=== PATIENT | female | born 1980 | race Caucasian/White ===

== ENCOUNTER 2017-04-04 10:04 | Emergency (ER) | payer OTHER ==
[2017-04-04] MEDS ORDERED: NS 0.9% 1000 ML* 2,000 ML IV ONE (10:22)
[2017-04-04 10:51] LABS: Hematocrit 37 % (35-47); Hemoglobin 12.3 g/dl (12.0-16.0); Mean Corpuscular HGB Conc 33 g/dl (31-36); Mean Corpuscular Hemoglobin 31 pg (27-31); Mean Corpuscular Volume 94 fL (80-97); Mean Platelet Volume 7 um3 (7.4-10.4); Red Blood Count 3.94 10^6/ul (4.0-5.4); Red Cell Distribution Width 14 % (10.5-15); White Blood Count 8.2 10^3/ul (3.5-10.8)
[2017-04-04 11:04] LABS: Albumin 3.9 g/dL (3.2-5.2); BUN/Creatinine Ratio 13.2 (8-20); Calcium 8.8 mg/dL (8.6-10.3); EGFR African American 111.4 (>60); EGFR Non-African American 86.6 (>60); Magnesium 1.8 mg/dL (1.9-2.7); Potassium 3.7 mmol/L (3.5-5.0); Total Bilirubin 0.4 mg/dL (0.2-1.0); Total Protein 6.9 g/dL (6.4-8.9)
[2017-04-04] MEDS ORDERED: Meclizine TAB* 12.5 MG PO ONE (11:34)
[2017-04-04] MEDS ORDERED: LORazepam INJ* 2 MG/ML 1 ML VIAL IV ONE (11:34)
[2017-04-04 11:41] LABS: TSH (Thyroid Stimulating Horm) 6.69 mcIU/mL (0.34-5.60)
[2017-04-04 11:53] LABS: Manual Entry Verification HAN0055; Mono Internal Control QC Line Present
[2017-04-04 13:03] LABS: Urine Bacteria Absent (Absent); Urine Bilirubin Negative (Negative); Urine Glucose Negative (Negative); Urine Nitrite Negative (Negative)
[2017-04-04 14:03] VITALS: BP 139/75
--- NOTE | 2017-04-04 17:51 | ED ---
Collins Chavez Billy, scribed for Vance Garnett MD on 04/04/17 at 1126 . Dizziness - HPI Summary HPI Summary: Patient is a 36 year-old female with a history of vertigo coming to [facility] for evaluation of dizziness since yesterday. She describes her symptoms as roomspinning and near-syncope. She also states that her "legs feel like jelly." She also states that she feels like she will fall forward when she walks. She is nauseated during these symptoms. Positive sore throat, nasal congestion, cough, and earache. Denies tinnitus or hearing loss. - History Of Current Complaint Chief Complaint: EDDizziness Stated Complaint: VIRTIGO Time Seen by Provider: 04/04/17 11:08 Hx Obtained From: Patient Onset/Duration: Still Present Timing: Constant Severity Initially: Moderate Severity Currently: Moderate Character: Room Spinning, Dizzy Associated Signs And Symptoms: Positive: Nausea, Unsteady Gait - Feels like she will fall forward, legs "feel like jelly". Negative: Tinnitus - Allergies/Home Medications Allergies/Adverse Reactions: Allergies Allergy/AdvReac Type Severity Reaction Status Date / Time Penicillins Allergy Severe CANT WALK Verified 04/04/17 10:14 WHEN SHE TAKES IT. SOB Amoxicillin [From Augmentin] Allergy Intermediate Hives Verified 04/04/17 10:14 Clavulanic Acid Allergy Intermediate Hives Verified 04/04/17 10:14 [From Augmentin] Sertraline [From Zoloft] Allergy Intermediate Hives Verified 04/04/17 10:14 Clindamycin Allergy Hives Verified 04/04/17 10:15 Fexofenadine [From Darlyn] Allergy Altered Verified 04/04/17 10:14 Mental Status Formoterol [From Dulera] Allergy Palpitation Verified 04/04/17 10:14 s Iohexol [From Omnipaque] Allergy Edema Verified 04/04/17 10:14 Latex Allergy Hives Verified 04/04/17 10:14 Lemon Oil Allergy Anaphylatic Verified 04/04/17 10:14 Shock Mometasone [From Dulera] Allergy Palpitation Verified 04/04/17 10:14 s Paroxetine [From Paxil] Allergy "It feels Verified 04/04/17 10:14 like I'm choking." Pseudoephedrine Allergy Increase BP Verified 04/04/17 10:14 [From [facility]] PMH/Surg Hx/FS Hx/Imm Hx Endocrine/Hematology History: Reports: Hx Thyroid Disease - Only in the past., Hx Anemia Denies: Hx Diabetes, Hx Unexplained Bleeding Cardiovascular History: Denies: Hx Aneurysm, Hx Angina, Hx Angioplasty, Hx Auto Implanted Cardiovert Defib, Hx Cardiac Arrest, Hx Cardiomegaly, Hx Congenital Heart Disease, Hx Congestive Heart Failure, Hx Coronary Artery Disease, Hx Deep Vein Thrombosis, Hx Embolism, Hx Hypercholesterolemia, Hx Hypotension, Hx Hypertension - In the past--she is on no medications for this., Hx Myocardial Infarction, Hx Pacemaker /ICD, Hx Peripheral Vascular Disease, Hx Rheumatic Fever, Hx Syncope, Hx Valvular Heart Disease, Other Cardiovascular Problems/Disorders Respiratory History: Reports: Hx Asthma - She does not take any medications for this., Hx Chronic Bronchitis, Hx Chronic Obstructive Pulmonary Disease (COPD) Denies: Hx Cystic Fibrosis, Hx Lung Cancer, Hx Pleural Effusion, Hx Pneumonia , Hx Pulmonary Edema, Hx Pulmonary Embolism, Hx Seasonal Allergies, Hx Sleep Apnea, Other Respiratory Problems/Disorders GI History: Reports: Hx Gastroesophageal Reflux Disease - ON DAILY PROLOSEC Denies: Hx Gall Bladder Disease, Hx Gastrointestinal Bleed, Hx Ulcer, Hx Urosepsis History: Denies: Hx Kidney Stones, Hx Renal Disease Sensory History: Reports: Hx Contacts or Glasses Denies: Hx Cataracts, Hx Eye Injury, Hx Eye Prosthesis, Hx Glaucoma, Hx Legally Blind, Hx Macular Degeneration, Hx Vision Problem, Hx Deafness, Hx Hearing Aid, Hx Hearing Problem, Other Sensory Impairments Opthamlomology History: Reports: Hx Contacts or Glasses Denies: Hx Cataracts, Hx Eye Injury, Hx Eye Prosthesis, Hx Glaucoma, Hx Legally Blind, Hx Macular Degeneration, Hx Vision Problem, Other Sensory Impairments Neurological History: Reports: Hx Developmental Delay - 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., Hx Migraine - OCCASSIONAL, USES [facility], Hx Seizures - SINCE 2004; LAST WAS 04/2014, Other Neuro Impairments/Disorders - epilepsy Denies: Hx Dementia, Hx Transient Ischemic Attacks (TIA) Psychiatric History: Reports: Hx Anxiety - ON MEDS PRN, Hx Depression, Hx Community Mental Health Tx - not currently; previously used [employer] and [facility] Mental health, Hx Bipolar Disorder Denies: Hx Post Traumatic Stress Disorder, Hx Schizophrenia, Hx Suicide Attempt, Hx Substance Abuse - Surgical History Surgery Procedure, Year, and Place: Scalp Cystectomy May 2014, Abdominal Lipoma May 2014 Hx Anesthesia Reactions: No Infectious Disease History: No Infectious Disease History: Denies: Hx Clostridium Difficile, Hx Hepatitis, Hx Human Immunodeficiency Virus (HIV), Hx of Known/Suspected MRSA, Hx Shingles, Hx Tuberculosis, Hx Known/ Suspected VRE, Hx Known/Suspected VRSA, History Other Infectious Disease, Traveled Outside the [place] in Last 30 Days - Family History Known Family History: Negative: Seizure Disorder - Social History Alcohol Use: None Substance Use Type: Reports: None Smoking Status (MU): Former Smoker Type: Cigarettes Have You Smoked in the Last Year: No Review of Systems Positive: Sore Throat, Ear Ache, Nasal Discharge Positive: Cough Positive: Nausea Neurological: Other - dizzy All Other Systems Reviewed And Are Negative: Yes Physical Exam - Summary Physical Exam Summary: The patient is well-nourished in no acute distress and in no acute pain. The skin is warm and dry and skin color reflects adequate perfusion. Good skin turgor. HEENT: The head is normocephalic and atraumatic. Positive right frontal sinus tenderness. The pupils are equal and reactive. The conjunctivae are clear and without drainage. Nares are patent and without drainage. Mouth reveals moist mucous membranes and the throat is without erythema and exudate. The external ears are intact. There is effusion visualized in the right TM. The tympanic membranes are intact. Neck is supple with full range of motion and non-tender. There are no carotid bruits. There is no neck vein distension. Respiratory: Chest is non-tender. Lungs are clear to auscultation and breath sounds are symmetrical and equal. Cardiovascular: Hear is regular rate and rhythm. There is no murmur or rub auscultated. There is no peripheral edema and pulses are symmetrical and equal. Abdomen: The abdomen is obese, soft, and non-tender. There are normal bowel sounds heard in all four quadrants and there is no organomegaly palpated. Musculoskeletal: There is no back pain noted. Extremities are non-tender with full range of motion. There is good capillary refill. There is no peripheral edema or calf tenderness elicited. Neurological: Patient is alert and oriented to person, place and time. There is horizontal nystagmus. The patient has symmetrical motor strength in all four extremities. Cranial nerves are grossly intact. Deep tendon reflexes are symmetrical and equal in all four extremities. Psychiatric: The patient has an appropriate affect and does not exhibit any anxiety or depression. Triage Information Reviewed: Yes Vital Signs On Initial Exam: Initial Vitals Temp Pulse Resp BP Pulse Ox 98.7 F 73 18 150/74 97 04/04/17 10:15 04/04/17 10:15 04/04/17 10:15 04/04/17 10:15 04/04/17 10:15 Vital Signs Reviewed: Yes Diagnostics - Vital Signs Vital Signs Temp Pulse Resp BP Pulse Ox 04/04/17 11:00 70 14 154/79 96 04/04/17 10:36 72 97 04/04/17 10:35 139/66 04/04/17 10:15 98.7 F 73 18 150/74 97 - Laboratory Lab Results: Lab Results 04/04/17 04/04/17 04/04/17 Range/Units 10:38 10:40 10:40 WBC 8.2 (3.5-10.8) 10^3/ul RBC 3.94 L (4.0-5.4) 10^6/ul Hgb 12.3 (12.0-16.0) g/dl Hct 37 (35-47) % MCV 94 (80-97) fL MCH 31 (27-31) pg MCHC 33 (31-36) g/dl RDW 14 (10.5-15) % Plt Count 309 (150-450) 10^3/ul MPV 7 L (7.4-10.4) um3 Neut % (Auto) 72.9 (38-83) % Lymph % (Auto) 17.5 L (25-47) % Warrick % (Auto) 6.1 (1-9) % Eos % (Auto) 2.7 (0-6) % Baso % (Auto) 0.8 (0-2) % Absolute Neuts (auto) 6.0 (1.5-7.7) 10^3/ul Absolute Lymphs (auto) 1.4 (1.0-4.8) 10^3/ul Absolute Monos (auto) 0.5 (0-0.8) 10^3/ul Absolute Eos (auto) 0.2 (0-0.6) 10^3/ul Absolute Basos (auto) 0.1 (0-0.2) 10^3/ul Absolute Nucleated RBC 0 10^3/ul Nucleated RBC % 0 Sodium 138 (133-145) mmol/L Potassium 3.7 (3.5-5.0) mmol/L Chloride 107 (101-111) mmol/L Carbon Dioxide 24 (22-32) mmol/L Anion Gap 7 (2-11) mmol/L BUN 10 (6-24) mg/dL Creatinine 0.76 (0.51-0.95) mg/dL Est GFR ( Amer) 111.4 (>60) Est GFR (Non-Af Amer) 86.6 (>60) BUN/Creatinine Ratio 13.2 (8-20) Glucose 118 H (70-100) mg/dL Lactic Acid (0.5-2.0) mmol/L Calcium 8.8 (8.6-10.3) mg/dL Magnesium 1.8 L (1.9-2.7) mg/dL Total Bilirubin 0.40 (0.2-1.0) mg/dL AST 12 L (13-39) U/L ALT 11 (7-52) U/L Alkaline Phosphatase 75 (34-104) U/L Troponin I 0.00 (<0.04) ng/mL Total Protein 6.9 (6.4-8.9) g/dL Albumin 3.9 (3.2-5.2) g/dL Globulin 3.0 (2-4) g/dL Albumin/Globulin Ratio 1.3 (1-3) TSH Pending Monoscreen Pending Group A Strep Rapid Negative (Negative) 04/04/17 Range/Units 10:40 WBC (3.5-10.8) 10^3/ul RBC (4.0-5.4) 10^6/ul Hgb (12.0-16.0) g/dl Hct (35-47) % MCV (80-97) fL MCH (27-31) pg MCHC (31-36) g/dl RDW (10.5-15) % Plt Count (150-450) 10^3/ul MPV (7.4-10.4) um3 Neut % (Auto) (38-83) % Lymph % (Auto) (25-47) % Warrick % (Auto) (1-9) % Eos % (Auto) (0-6) % Baso % (Auto) (0-2) % Absolute Neuts (auto) (1.5-7.7) 10^3/ul Absolute Lymphs (auto) (1.0-4.8) 10^3/ul Absolute Monos (auto) (0-0.8) 10^3/ul Absolute Eos (auto) (0-0.6) 10^3/ul Absolute Basos (auto) (0-0.2) 10^3/ul Absolute Nucleated RBC 10^3/ul Nucleated RBC % Sodium (133-145) mmol/L Potassium (3.5-5.0) mmol/L Chloride (101-111) mmol/L Carbon Dioxide (22-32) mmol/L Anion Gap (2-11) mmol/L BUN (6-24) mg/dL Creatinine (0.51-0.95) mg/dL Est GFR ( Amer) (>60) Est GFR (Non-Af Amer) (>60) BUN/Creatinine Ratio (8-20) Glucose (70-100) mg/dL Lactic Acid 1.7 (0.5-2.0) mmol/L Calcium (8.6-10.3) mg/dL Magnesium (1.9-2.7) mg/dL Total Bilirubin (0.2-1.0) mg/dL AST (13-39) U/L ALT (7-52) U/L Alkaline Phosphatase (34-104) U/L Troponin I (<0.04) ng/mL Total Protein (6.4-8.9) g/dL Albumin (3.2-5.2) g/dL Globulin (2-4) g/dL Albumin/Globulin Ratio (1-3) TSH Monoscreen Group A Strep Rapid (Negative) Result Diagrams: 04/04/17 10:40 04/04/17 10:40 Lab Statement: Any lab studies that have been ordered have been reviewed, and results considered in the medical decision making process. - EKG 1021 EKG Interpretation: NSR 75 bpm, no STEMI Re-Evaluation - Re-Evaluation First Eval Re-Evaluation Time: 13:46 Change: Improved Comment: Labs reviewed with the patient. Dizzy Course/Dx - Course Assessment/Plan: 36 year-old female coming to the ED for evaluation of vertigo. EKG shows NSR with no STEMI. Labs reviewed. TSH is 6.69. Patient has a history of hypothyroidism in the past. She will be discharged home with Rx for Meclizine and will follow up with her primary care physician Dr. Vizcarra. - Diagnoses Differential Diagnosis/HQI/PQRI: Benign Paroxysmal Positional Vertigo, Hypovolemia, Labyrinthitis, Meniere's Disease, Medication Reaction, Metabolic Abnormality Provider Diagnoses: Vertigo, Hypothyroidism Discharge - Discharge Plan Condition: Stable Disposition: HOME Prescriptions: Meclizine HCl [Meclizine 25] 25 mg PO QID #30 tab Patient Education Materials: Vertigo (ED), Hypothyroidism (ED) Referrals: Tanvir Vizcarra MD [Medical Doctor] - The documentation as recorded by the Collins villalobos Billy accurately reflects the service I personally performed and the decisions made by me, Vance Garnett MD.
== END 2017-04-04 14:16 | disposition home or self-care (01) ==
LOC: ED 10:04
DX: R42 Dizziness and giddiness (principal); E03.9 Hypothyroidism, unspecified; H92.09 Otalgia, unspecified ear; R11.0 Nausea; J02.9 Acute pharyngitis, unspecified; R05 Cough; Z87.891 Personal history of nicotine dependence
CPT/HCPCS: 36415; 80053; 81003; 81015; 83605; 83735; 84443; 84484; 85025; 86308; 87086; 87651; 93005; 96374; 99283; A9270-GY; J2060

== ENCOUNTER 2017-06-05 15:16 | Emergency (ER) | payer OTHER ==
[2017-06-05 15:27] VITALS: BP 135/67
--- NOTE | 2017-06-05 15:29 | UC ---
Minor Trauma HPI - HPI Summary HPI Summary: 36 year old female presents with complains right elbow pain and left hip pain post fall. - History of Current Complaint Chief Complaint: UCBackPain Stated Complaint: S/P FALL-LFT HIP,RT ARM/ELBOW PAIN Time Seen by Provider: 06/05/17 15:22 Hx Last Menstrual Period: last week - Allergies/Home Medications Allergies/Adverse Reactions: Allergies Allergy/AdvReac Type Severity Reaction Status Date / Time Penicillins Allergy Severe CANT WALK Verified 06/05/17 15:27 WHEN SHE TAKES IT. SOB Amoxicillin [From Augmentin] Allergy Intermediate Hives Verified 06/05/17 15:27 Clavulanic Acid Allergy Intermediate Hives Verified 06/05/17 15:27 [From Augmentin] Sertraline [From Zoloft] Allergy Intermediate Hives Verified 06/05/17 15:27 Clindamycin Allergy Hives Verified 06/05/17 15:27 Fexofenadine [From Darlyn] Allergy Altered Verified 06/05/17 15:27 Mental Status Formoterol [From Dulera] Allergy Palpitation Verified 06/05/17 15:27 s Iohexol [From Omnipaque] Allergy Edema Verified 06/05/17 15:27 Latex Allergy Hives Verified 06/05/17 15:27 Lemon Oil Allergy Anaphylatic Verified 06/05/17 15:27 Shock Mometasone [From Dulera] Allergy Palpitation Verified 06/05/17 15:27 s Paroxetine [From Paxil] Allergy "It feels Verified 06/05/17 15:27 like I'm choking." Pseudoephedrine Allergy Increase BP Verified 06/05/17 15:27 [From Sudafed] Home Medications: Home Medications Budesonide NEB* [Pulmicort Neb*] 0.25 mg INH BID 06/05/17 [History Confirmed ] Calcium Carbonate-Vitamin D [Calcium 600 + D 600-400 mg-Unit] 1 tab PO DAILY [History Confirmed 06/05/17] PMH/Surg Hx/FS Hx/Imm Hx Other History Of: Negative For: HIV, Hepatitis B, Hepatitis C - Surgical History Surgical History: Yes Surgery Procedure, Year, and Place: Scalp Cystectomy May 2014, Abdominal Lipoma May 2014 - Family History Known Family History: Positive: None, Unknown Negative: Seizure Disorder - Social History Alcohol Use: None Substance Use Type: None Smoking Status (MU): Former Smoker Type: Cigarettes Have You Smoked in the Last Year: No - Immunization History Most Recent Influenza Vaccination: Fall 2014 Most Recent Tetanus Shot: 2014 Most Recent Pneumonia Vaccination: unknown Review of Systems Constitutional: Negative Skin: Negative Eyes: Negative ENT: Negative Respiratory: Negative Cardiovascular: Negative Gastrointestinal: Negative Genitourinary: Negative Motor: Negative Neurovascular: Negative Musculoskeletal: Other: - right elbow swelling left hip pain Neurological: Negative Psychological: Negative All Other Systems Reviewed And Are Negative: Yes Physical Exam Triage Information Reviewed: Yes Vital Signs: Initial Vital Signs Temp 36.7 C 06/05/17 15:21 Pulse 95 06/05/17 15:21 Resp 16 06/05/17 15:21 BP 135/67 06/05/17 15:21 Pulse Ox 99 06/05/17 15:21 Eye Exam: Normal ENT Exam: Normal Dental Exam: Normal Neck exam: Normal Neck: Positive: 1 Respiratory Exam: Normal Cardiovascular Exam: Normal Abdominal Exam: Normal Musculoskeletal: Positive: Other: - right elbow pain left hip pain Neurological Exam: Normal Psychological Exam: Normal Skin Exam: Normal Minor Trauma Course/Dx - Differential Dx/Diagnosis Provider Diagnoses: right elbow contusion. left hip pain Discharge - Discharge Plan Condition: Stable Disposition: HOME Prescriptions: Meloxicam [Mobic] 7.5 mg PO BID #30 tab Methocarbamol TAB* [Robaxin 500 MG TAB*] 500 mg PO TID PRN #30 tab PRN Reason: Spasms Patient Education Materials: Elbow Sprain (ED), Hip Pain (ED) Referrals: Raghu Goss MD [Medical Doctor] - Baldev Bonner MD [Medical Doctor] - If Needed
--- NOTE | 2017-06-05 16:39 | RAD ---
HISTORY: Fall, left hip pain COMPARISONS: None VIEWS: 4, Frontal view of the pelvis with frontal and frog-leg views of the left hip FINDINGS: BONE DENSITY: Normal. BONES: There is no displaced fracture. JOINTS: There is no arthropathy. ALIGNMENT: There is no dislocation. SOFT TISSUES: Unremarkable. OTHER FINDINGS: Contraceptive inserts are noted IMPRESSION: NO ACUTE OSSEOUS INJURY. IF SYMPTOMS PERSIST, RECOMMEND REPEAT IMAGING.
--- NOTE | 2017-06-05 16:40 | RAD ---
INDICATION: RIGHT elbow pain post fall. COMPARISON: No relevant prior exams available on the [facility] PACS for comparison. TECHNIQUE: AP, lateral, and oblique views RIGHT elbow. REPORT: Negative for fat pad displacement to indicate effusion. No cortical disruption or suspicious trabecular irregularity to suggest fracture. Preserved joint spaces. Mild dorsal soft tissue swelling. IMPRESSION: Mild dorsal soft tissue swelling without additional finding.
== END 2017-06-05 17:01 | disposition home or self-care (01) ==
LOC: UCCORT 15:16
DX: S50.01XA Contusion of right elbow, initial encounter (principal); M25.552 Pain in left hip; W19.XXXA Unspecified fall, initial encounter; Y93.9 Activity, unspecified; Y92.9 Unspecified place or not applicable; Z32.02 Encounter for pregnancy test, result negative; Z88.0 Allergy status to penicillin; Z88.1 Allergy status to other antibiotic agents; Z91.041 Radiographic dye allergy status; Z87.891 Personal history of nicotine dependence
CPT/HCPCS: 84702; 99212; G0463

== ENCOUNTER 2017-06-11 17:25 | Emergency (ER) | payer OTHER ==
[2017-06-11 17:43] VITALS: BP 147/83
--- NOTE | 2017-06-11 17:54 | UC ---
Dental HPI - HPI Summary HPI Summary: Pt presents with c/o of broken tooth that happened 2 days ago. Pt reports that she has an appointment with her dentist on 06/20. c/o pain and swelling in left upper gums and jaw - History of Current Complaint Chief Complaint: UCDentalProblem Stated Complaint: DENTAL Time Seen by Provider: 06/11/17 17:35 Hx Obtained From: Patient Hx Last Menstrual Period: 05/22/17 ?: No Onset/Duration: Sudden Onset, Lasting Days - 2, Worse Since - onset Severity: Mild Aggravating: Heat, Cold, Chewing Related History: Other - generalized poor dentition - Allergies/Home Medications Allergies/Adverse Reactions: Allergies Allergy/AdvReac Type Severity Reaction Status Date / Time Penicillins Allergy Severe CANT WALK Verified 06/05/17 15:27 WHEN SHE TAKES IT. SOB Amoxicillin [From Augmentin] Allergy Intermediate Hives Verified 06/05/17 15:27 Clavulanic Acid Allergy Intermediate Hives Verified 06/05/17 15:27 [From Augmentin] Sertraline [From Zoloft] Allergy Intermediate Hives Verified 06/05/17 15:27 Clindamycin Allergy Hives Verified 06/05/17 15:27 Fexofenadine [From Darlyn] Allergy Altered Verified 06/05/17 15:27 Mental Status Formoterol [From Dulera] Allergy Palpitation Verified 06/05/17 15:27 s Iohexol [From Omnipaque] Allergy Edema Verified 06/05/17 15:27 Latex Allergy Hives Verified 06/05/17 15:27 Lemon Oil Allergy Anaphylatic Verified 06/05/17 15:27 Shock Mometasone [From Dulera] Allergy Palpitation Verified 06/05/17 15:27 s Paroxetine [From Paxil] Allergy "It feels Verified 06/05/17 15:27 like I'm choking." Pseudoephedrine Allergy Increase BP Verified 06/05/17 15:27 [From Sudafed] Home Medications: Home Medications Budesonide/Formote 160/4.5(NF) [Symbicort 160/4.5 (NF)] 2 puff INH DAILY [History Confirmed 06/11/17] Levothyroxine TAB* [Synthroid 25 MCG TAB*] 0 mcg PO DAILY 06/11/17 [History Confirmed 06/11/17] Migraine Med 4 tab PO BEDTIME 06/11/17 [History Confirmed 06/11/17] Pedistick Inhaler 1 puff INH BID PRN 06/11/17 [History Confirmed 06/11/17] PMH/Surg Hx/FS Hx/Imm Hx Previously Healthy: No - obesity Endocrine History: Diabetes - "prediabetic" Cardiovascular History: Hypertension - untreated per pt. Other History Of: Negative For: HIV, Hepatitis B, Hepatitis C - Surgical History Surgical History: Yes Surgery Procedure, Year, and Place: Scalp Cystectomy May 2014, Abdominal Lipoma May 2014 - Family History Known Family History: Negative: Seizure Disorder - Social History Occupation: Unemployed Lives: With Family Alcohol Use: None Substance Use Type: None Smoking Status (MU): Former Smoker Type: Cigarettes Have You Smoked in the Last Year: No - Immunization History Most Recent Influenza Vaccination: Fall 2014 Most Recent Tetanus Shot: 2014 Most Recent Pneumonia Vaccination: unknown Review of Systems Constitutional: Negative Skin: Negative Eyes: Negative ENT: Other - left upper jaw swellling and pain Respiratory: Negative Cardiovascular: Negative Gastrointestinal: Negative Genitourinary: Negative Motor: Negative Neurovascular: Negative Musculoskeletal: Negative Neurological: Negative Psychological: Negative All Other Systems Reviewed And Are Negative: Yes Physical Exam Triage Information Reviewed: Yes Appearance: Well-Appearing Vital Signs: Initial Vital Signs Temp 98.4 F 06/11/17 17:33 Pulse 90 06/11/17 17:33 Resp 18 06/11/17 17:33 BP 147/83 06/11/17 17:33 Vital Signs Reviewed: Yes Eye Exam: Normal ENT Exam: Normal Dental Exam: Other Dental: Positive: Gross Decay/Caries @ - generalized, Dental Fracture @ - generalized multiple teeth, Other: - multiple missing teeth, Neck exam: Normal Respiratory Exam: Normal Cardiovascular Exam: Normal Musculoskeletal Exam: Normal Neurological Exam: Normal Psychological Exam: Normal Skin Exam: Normal Dental Complaint Course/Dx - Differential Dx/Diagnosis Differential Diagnosis/Dx: Dental Abscess, Dental Caries, Fractured Tooth, Gingivitis Provider Diagnoses: fractured tooth. poor dentition Discharge - Discharge Plan Condition: Stable Disposition: HOME Prescriptions: Ibuprofen TAB* [Motrin TAB* 600 MG] 600 mg PO Q6H PRN #21 tab PRN Reason: Pain Metronidazole [Flagyl 500 MG TAB] 500 mg PO Q12H #20 tab Patient Education Materials: Dental Abscess (ED), Acute Dental Trauma (ED) Referrals: Tanvir Vizcarra MD [Primary Care Provider] - Additional Instructions: Please follow up with your dental care provider as soon as possible.
== END 2017-06-11 18:38 | disposition home or self-care (01) ==
LOC: UCCORT 17:25
DX: S02.5XXA Fracture of tooth (traumatic), initial encounter for closed fracture (principal); K08.9 Disorder of teeth and supporting structures, unspecified; X58.XXXA Exposure to other specified factors, initial encounter; Y92.9 Unspecified place or not applicable; Z88.0 Allergy status to penicillin
CPT/HCPCS: 99212; G0463

== ENCOUNTER 2017-07-23 19:12 | Emergency (ER) | payer OTHER ==
[2017-07-23 19:28] VITALS: BP 139/69
--- NOTE | 2017-07-23 19:44 | UC ---
Dental HPI - HPI Summary HPI Summary: Patient presents s/p two dental extraction today performed by [facility], and she has pain at the extraction site. She states she was told to go to the ER for pain medication they could not help her. She states the pain from the extraction site is 10/10 and constant since the novacaine wore off. She reports the bleeding is controlled. She states there is still some numbness of the left lower jaw. She has taken advil with no relief. - History of Current Complaint Chief Complaint: UCDentalProblem Stated Complaint: DENTAL COMPLAINT Time Seen by Provider: 07/23/17 19:25 Hx Obtained From: Patient Hx Last Menstrual Period: 06/22/17 ?: No Onset/Duration: Sudden Onset Severity: Severe Aggravating: Nothing Alleviating: Nothing - Allergies/Home Medications Allergies/Adverse Reactions: Allergies Allergy/AdvReac Type Severity Reaction Status Date / Time Penicillins Allergy Severe CANT WALK Verified 07/23/17 19:32 WHEN SHE TAKES IT. SOB Amoxicillin [From Augmentin] Allergy Intermediate Hives Verified 07/23/17 19:32 Clavulanic Acid Allergy Intermediate Hives Verified 07/23/17 19:32 [From Augmentin] Sertraline [From Zoloft] Allergy Intermediate Hives Verified 07/23/17 19:32 Clindamycin Allergy Hives Verified 07/23/17 19:32 Fexofenadine [From Darlyn] Allergy Altered Verified 07/23/17 19:32 Mental Status Formoterol [From Dulera] Allergy Palpitation Verified 07/23/17 19:32 s Iohexol [From Omnipaque] Allergy Edema Verified 07/23/17 19:32 Latex Allergy Hives Verified 07/23/17 19:32 Lemon Oil Allergy Anaphylatic Verified 07/23/17 19:32 Shock Metronidazole Allergy NAUSEA, Verified 07/23/17 19:33 VOMITING Mometasone [From Dulera] Allergy Palpitation Verified 06/05/17 15:27 s Paroxetine [From Paxil] Allergy "It feels Verified 06/05/17 15:27 like I'm choking." Pseudoephedrine Allergy Increase BP Verified 06/05/17 15:27 [From Sudafed] Zonisamide Allergy Hives Verified 07/23/17 19:33 PSEUDOEPHEDRINE Allergy Unknown Uncoded 07/23/17 19:32 Reaction Details PMH/Surg Hx/FS Hx/Imm Hx Previously Healthy: Yes Psychological History: Depression Other History Of: Negative For: HIV, Hepatitis B, Hepatitis C - Surgical History Surgical History: Yes Surgery Procedure, Year, and Place: Scalp Cystectomy May 2014, Abdominal Lipoma May 2014 - Family History Known Family History: Positive: None, Unknown Negative: Seizure Disorder - Social History Lives: Alone Alcohol Use: None Substance Use Type: None Smoking Status (MU): Former Smoker Type: Cigarettes Have You Smoked in the Last Year: No - Immunization History Most Recent Influenza Vaccination: Fall 2014 Most Recent Tetanus Shot: 2014 Most Recent Pneumonia Vaccination: unknown Review of Systems ENT: Other - dental extraction pain All Other Systems Reviewed And Are Negative: Yes Physical Exam Triage Information Reviewed: Yes Appearance: Well-Appearing Vital Signs: Initial Vital Signs Pulse 94 07/23/17 19:20 Resp 15 07/23/17 19:20 BP 139/69 07/23/17 19:20 Pulse Ox 99 07/23/17 19:20 Vital Signs Reviewed: Yes Eye Exam: Normal ENT Exam: Normal ENT: Positive: Other: - extraction sited of the left lower of the canine and 1st molar are clotted, and n bleeding noted. Minor soft tissue swelling noted on outter madible area. SLight tenderness on palpation of the mandible. Respiratory Exam: Normal Skin Exam: Normal Dental Complaint Course/Dx - Course Course Of Treatment: Patient presents s/p dental extraction today, site are clotted and bleeding controlled. Patient was placed on docycycline and given a few tablets of tylenol and codeine for pain controll. She is goint to follow up with [facility] for complete extractions of all her teeth. She was discharged home in stable condition. - Differential Dx/Diagnosis Differential Diagnosis/Dx: Other - dental extraction dental pain Provider Diagnoses: dental extractions. dental pain Discharge - Discharge Plan Condition: Stable Disposition: HOME Prescriptions: Acetaminop/Codeine 30 MG TAB* [Tylenol/Codeine 30 MG TAB*] 1 tab PO Q6H PRN #10 tab MDD 4 PRN Reason: dental pain DOXYcycline CAP(*) [DOXYcycline 100MG CAP(*)] 100 mg PO BID #20 cap Patient Education Materials: Tooth Extraction (ED) Referrals: Tanvir Vizcarra MD [Primary Care Provider] -
== END 2017-07-23 19:47 | disposition home or self-care (01) ==
LOC: UCEAST 19:12
DX: K08.409 Partial loss of teeth, unspecified cause, unspecified class (principal); K08.89 Other specified disorders of teeth and supporting structures; F32.9 Major depressive disorder, single episode, unspecified; Z88.0 Allergy status to penicillin; Z88.8 Allergy status to other drugs, medicaments and biological substances; Z88.1 Allergy status to other antibiotic agents; Z91.041 Radiographic dye allergy status; Z91.040 Latex allergy status; Z87.891 Personal history of nicotine dependence
CPT/HCPCS: 99212; G0463

== ENCOUNTER 2018-04-10 01:31 | Emergency (ER) | payer OTHER ==
--- OUTSIDE RECORDS SUMMARY | 2018-04-10 01:44 | XMS REPORT ---
:1980 External Reference #:[id number] Author Organization [facility] Address [address] [address] Phone [phone] Care Team Providers Name Role Phone Tanvir Vizcarra MD Primary Care Physician Unavailable Payers Type Date Identification Numbers Payment Provider Subscriber Commercial Effective: Policy Number: [id number] [place] Dean Peng 2012 Medicaid PayID: [id number] [address] [address] [place] [address] Advance Directives Type Date Description Status Comment Other Directive 12/28/2014 [employer] Current and Verified Problems Date Description Provider Status Onset: 08/20/2012 Epilepsy Yudi Carlin M.D. Active Onset: 08/20/2012 Asthma without status asthmaticus Yudi Carlin M.D. Active Onset: 08/20/2012 Essential hypertension Yudi Carlin M.D. Active Onset: 08/31/2012 Conduction disorder of the heart Tanvir Vizcarra M.D. Active Onset: 08/31/2012 Migraine variants, not intractable Tanvir Vizcarra M.D. Active Onset: 01/16/2015 Anxiety disorder Jeremiah Zendejas NP Active Onset: 06/13/2015 Depressive disorder Jeremiah Zendejas NP Active Note: Bipolar Onset: 04/08/2017 Peripheral vertigo Tanvir Vizcarra M.D. Active Onset: 04/08/2017 Hypothyroidism Tanvir Vizcarra M.D. Active Onset: 05/15/2017 Lipoma (clinical) Tanvir Vizcarra M.D. Active Onset: 05/15/2017 Obstructive sleep apnea syndrome Tanivr Vizcarra M.D. Active Onset: 05/15/2017 Recurrent major depressive episodes Tanvir Vizcarra M.D. Active Onset: 10/16/2017 Gastroesophageal reflux disease Tanvir Vizcarra M.D. Active Onset: 10/16/2017 Morbid obesity Tanvir Vizcarra M.D. Active Onset: 07/21/2017 Difficulty breathing Diana Escalona MD Inactive Inactive: 01/21/2018 Onset: 07/21/2017 Bronchitis Diana Escalona MD Inactive Inactive: 01/21/2018 Note: chronic Onset: 09/28/2012 Acute bronchitis Tanvir Vizcarra M.D. Resolved Resolved: 02/27/2015 Onset: 10/27/2012 Dizziness and giddiness Tanvir Vizcarra M.D. Resolved Resolved: 02/27/2015 Family History Date Family Member(s) Problem(s) Comments First Sister 21 First Sister other sister had thyroid removed. Social History Type Date Description Comments Marital Status Lives With Boyfriend Occupation Disabled ETOH Use 01/21/2018 Denies alcohol use Smoking 2004 Patient is a former smoker "not enough to say so" Recreational Drug Use Denies Drug Use General Hx Text 2 children, live w/ father Allergies, Adverse Reactions, Alerts Date Description Reaction Status Severity Comments 07/20/2012 Latex Contact active dermatitis 07/20/2012 Sudafed High BP active 02/25/2013 Lemon Anaphylaxis active 09/29/2014 Augmentin diarrhea active 03/06/2015 Paroxetine active pt unaware of reaction 03/06/2015 Pseudoephedrine active unaware of reaction 03/06/2015 Zoloft active unaware of reaction 03/17/2015 Darlyn confusion active Moderate to Severe 05/09/2015 Dye, Contrast arm swelled and active Moderate "out of it" 06/13/2015 Dye, contrast swelling in active Severe hands, cant breath 05/03/2016 Penicillin lessons ability active Moderate to walk per pt 06/18/2017 Metronidazole nausea, vomiting, active Moderate tachycardia 06/18/2017 Zonisamide Urticaria active 01/02/2018 Peanut-containing Drug active Products Medications Medication Date Status Form Strength Qnty SIG Indications Ordering Provider Meclizine HCL 03/10/ Active Tablets 25mg 90tabs 1/2-1 by H81.399 Tanvir 2018 mouth Pachikara, three M.D. times a day as needed Calcium 02/18/ Active Tablets 600-400mg- 180tab Take One J00 [place] Carbonate-Esther 2018 Unit s Tablet By Zackery, min D Mouth M.DBryant Twice A Day With Food Arnuity 01/21/ Active Aerosol 100mcg/Act 30unit 1 puff Baldev Pereira 2018 s inhaled Ebony Bonner, every day M.D.,FACP Doxepin HCL 09/12/ Active Capsules 10mg 120cap 4 qhs G43.909 [place] Blanco 2016 jer Yadav M.D. Meclizine HCL 04/08/ Active Tablets 12.5mg 60tabs 1-2 tab H81.393 Tanvir 2016 two times Zackery, a day M.D. Ondansetron 03/31/ Active Tablets 4mg 10tabs one by Baldev LUNDBERG 2017 mouth Ebony Bonner, every 8 M.D.,FACP hours as needed for nausea Citalopram 03/17/ Active Tablets 10mg 30tabs Take One [place] Hydrobromide 2016 Tablet By Zackery, Mouth M.D. Every Day Along With 20 MG Tablet To Equal Total Daily Dose Of 30 MG Robitussin 12 10/10/ Active Suer 30mg/5ML 118ml 1-2 J00 [facility] Cough 2016 teaspoon Zackery, Relief at night M.D. as needed Ibuprofen 06/24/ Active Tablets 800mg 90tabs take 1 Tanvir 2015 tablet by Zackery, mouth M.D. three times daily as needed Ventolin HFA 03/13/ Active Aerosol 108(90Base 1units 2 puffs by Malu Ryan 2015 ) mcg/Act mouth four Ebony Bonner, times a M.D.,FACP day as needed Freestyle 09/28/ Active Misc 100uni test bs [place] Gabriel 2014 ts once daily Zackery, and as M.D. needed Freestyle 09/28/ Active Kit 250.02 Jeremiah System 2014 Ecuadorean, HAND EDGER Freestyle Test 09/28/ Active Strips 100uni test Jeremiah 2015 ts strips use aAshish HAND EDGER daily as directed Omeprazole 09/15/ Active Capsules 20mg 30caps Take One K21.[address] Capsule By aZckery, Mouth M.D. Every Day Benzonatate 08/22/ Active Capsules 100mg 30caps 1 tab by R05 Baldev 2014 mouth Ebony Bonner, three M.D.,FACP times a day as needed J00 KP Cetirizine HCL 03/31/2015 Active Tablets 10mg 30tabs 1 by mouth Baldev every day Ebony Bonner M.D.,FACP Citalopram 08/30/2014 Active Tablets 20mg 30tabs Take One F33. Tanvir Hydrobromide Tablet By 9 Pachikara, Mouth Every M.D. Day Along With 10 MG Tablet To Equal Total Daily Dose Of 30 MG Ferrous Gluconate 08/12/2014 Active Tablets 324(3 90tabs Take One Tanvir 8Fe) Tablet By Zackery, mg Mouth Every M.D. Day Albuterol Sulfate 11/02/2012 Active Nebulizer (2.5m 100unit inhale the Baldev g/3ML s contents of Ebony Bonner, ) one vial M.D.,FACP 0.083 via % nebulizer every 4 to 6 hours as needed Lamotrigine 07/21/2012 Active Tablets 100mg 210tabs 3 by mouth Momo every Taya, morning and MD Quintanilla every night at bedtime Flonase Allergy Active Suspension 50mcg 9.900ml 2 Tanvir Relief /Act intranasal Dominikika, twice a day M.D. Levothyroxine Active Tablets 75mcg 1 by mouth E03. Unknown Sodium every day 9 Prednisone 01/21/2018 - Hx Tablets 10mg 20tabs 4 tabs Baldev 01/29/2018 every day Ebony Bonner, for 2 days, M.DBryant,FACP then reduce by 1 tab every 2 days until finished Calcium 10/20/2017 - Hx Tablets 600-4 180tabs take one Tanvir Carbonate-Vitamin 01/01/2018 00mg- tablet by Calvin Vizcarra Unit mouth twice M.D. a day with food Doxycycline 07/23/2017 - Hx Tablets 100mg 20tabs 1 by mouth Other Hyclate 08/02/2017 twice a day Ordering x 10 days Provider Acetaminophen-Cod 07/23/2017 - Hx Tablets 300-3 10tabs 1 tab by Unknown eine #3 09/11/2017 0mg mouth q 6 hrs day as needed pain Zonisamide 07/18/2017 - Hx Capsules 100mg 60caps 2 tabs po G43. Clinton S. 01/01/2018 qhs 909 Pablo Yadva Doxycycline 06/18/2017 - Hx Capsules 100mg 14caps 1 cab twice R30. Tanvir Hyclate 07/17/2017 a day 0 Pablo Vizcarra Nitrofurantoin 06/10/2017 - Hx Capsules 100mg 14caps take one Other Macrocrystal 06/17/2017 capsule Ordering twice daily Provider for 7 days. Zonisamide 04/18/2017 - Hx Capsules 25mg 120caps 1 po qhs G43. [place] Blanco 06/18/2017 for 1 wk 909 Leif, then 2 qhs M.DBryant for 1 wk then 3 qhs for 1 wk then 4 qhs Azithromycin 04/08/2017 - Hx Tablets 250mg 6tabs 2 tab today J06. [place] 04/10/2017 and then 9 Pachikara, 1tab daily M.D. Levothyroxine 04/08/2017 - Hx Tablets 25mcg 45tabs take one E03. Tanvir Sodium 01/21/2018 tablet by 9 Pachikara, mouth every M.D. morning Lidocaine Viscous 04/02/2017 - Hx Solution 2% 200ml swish and K08. Marito E. 04/10/2017 spit 15cc 89 Dyana, up to three M.D. times a day as needed Ketorolac 03/31/2017 - Hx Tablets 10mg 3tabs take 1 by Bekah Tromethamine 04/10/2017 mouth every Cowdery, 8 hours as M.D. needed for migraine. take with food. Clindamycin HCL 03/25/2017 - Hx Capsules 300mg 40caps 1 tabs by K05. Tanvir 04/10/2017 mouth every 00 Pachikara, 6h M.D. Vicodin 03/25/2017 - Hx Tablets 5-300 20tabs 1 tab every K05. [place] 05/21/2017 mg 12 hours 00 Pachikara, M.D. Calcium 600+D 10/31/2016 - Hx Tablets 600-4 180tabs 1 tab by J00 Tanvir 02/18/2018 00mg- mouth twice Pachikara, Unit a day take M.D. w/ meal Topiramate 10/17/2016 - Hx Tablets 100mg 75tabs 1 po qam G43. [place] Blanco 03/18/2017 and 1 11/11 909 luis manuel Yadav M.D. Naproxen 05/03/2016 - Hx Tablets 250mg 60tabs 1 tablet by M79. Jeremiah 05/13/2016 mouth twice 632 Ecuadorean, HAND EDGER a day as needed pain, with foods Prednisone 03/26/2016 - Hx Tablets 20mg 5tabs 1 tablets J02. Jeremiah 05/03/2016 by mouth 9 Ecuadorean, HAND EDGER daily x's 5 days in the morning Meclizine HCL 03/26/2016 - Hx Tablets 25mg 45tabs 1 tablet H81. Jeremiah 04/09/2016 tid every 319 [place]cu[place]orean, HAND EDGER 6-8 hours as needed Escitalopram 03/11/2016 - Hx Tablets 10mg 30tabs 1/2 tab po F33. Ashvin- Connor Oxalate 03/14/2016 qd for 1 wk 9 D. Lisco, then 1 by Pablo,FACP mouth every day Venlafaxine HCL 02/22/2016 - Hx Tablets 37.5m 22tabs 75 mg for 1 F33. Jeremiah 03/13/2016 g week, then 9 [place]orean, HAND EDGER 37.5 mg for 1 week, then stop. Zofran Odt 01/01/2016 - Hx Tablets 4mg 12tabs 1 odt by R11. Jeremiah 01/02/2016 Dispers mouth every 2 Ecuadorean, HAND EDGER 6 hours as needed nausea no more than 3 daily Drisdol 12/25/2015 - Hx Capsules 59370 8caps 1 tab by Jeremiah 02/22/2016 Unit mouth once Ecuadorean, HAND EDGER a week x's 8 weeks Nystop 12/20/2015 - Hx Powder 45557 1units apply B37. Jeremiah 02/22/2016 0Unit topically 2 [place]cu[place]orean, HAND EDGER /GM to rash twice a day until rash resolved Cefdinir 10/30/2015 - Hx Capsules 300mg 20caps 1 capsule J01. Jeremiah 11/09/2015 twice a day 90 [place]cu[place]orean, HAND EDGER x's 10 days Ipratropium 10/30/2015 - Hx Solution 0.03% 1units instill 2 J01. Jeremiah [place] 11/13/2015 sprays in 90 [place]cu[place]orean, HAND EDGER each nostril three times a day as needed nasal congestion Penicillin V 10/12/2015 - Hx Tablets 500mg 20tabs 1 tablet by Jeremiah Potassium 10/22/2015 mouth bid Ecu[place]orean, HAND EDGER x10 days Clindamycin HCL 10/11/2015 - Hx Capsules 300mg 30caps 1 capsule J02. Jeremiah 10/12/2015 by mouth 9 [place]cu[place]orean, HAND EDGER three times a day x's 10 days Cepacol Sore 10/11/2015 - Hx Lozenges 5.4mg J02. Jeremiah Throat 10/16/2015 9 [place]cu[place]orean, HAND EDGER Topiramate 09/10/2015 - Hx Caps 25mg 90caps take 3 by G43Bryant Blanco 10/17/2016 Sprinkle mouth at 909 Leif, bedtime M.D. Naproxen 08/24/2015 - Hx Tablets 500mg 14tabs 1 tab by Jeremiah 11/13/2015 mouth every [place]cu[place]orean, HAND EDGER 12 hours. prn [place] 07/05/2015 - Hx Tablets 7.5-3 6tabs 1 tab every Jeremiah 07/08/2015 25mg 6 hours up Aashish HAND EDGER to twice a day x3 days [place] 06/22/2015 - Hx Tablets 7.5-3 30tabs 1 tab every 522. Jeremiah 07/05/2015 25mg 6 hours prn 0 [place]cu[place]orean, HAND EDGER pain Nystatin 05/26/2015 - Hx Suspension 17732 225ml swish and Jeremiah 06/05/2015 0Unit swallow 5ml Aashish HAND EDGER /ML four times a day x's 10 days Clindamycin HCL 05/16/2015 - Hx Capsules 300mg 30caps 1 capsule 462 Jeremiah 05/26/2015 by mouth [place]cu[place]orean, JANNIE three times a day x's 10 days Medrol (Tj) 05/16/2015 - Hx Tablets 4mg 1tabs take as 462 Jeremiah 05/26/2015 prescribed [place]cu[place]orean, HAND EDGER Amoxicillin 05/09/2015 - Hx Tablets 875mg 20tabs take one 380. Jeremiah 05/19/2015 tablet by 13 [place]cu[place]orean, HAND EDGER mouth twice a day x's 10 days Cheratussin ac 05/09/2015 - Hx Syrup 100-1 120ml 1-2 786. Jeremiah 05/19/2015 0mg/5 teaspoon by 2 [place]cu[place]orean, HAND EDGER ML mouth every 4 to 6 hours as needed cough Amoxicillin 03/06/2015 - Hx Tablets 875mg 14tabs take one 381. Jeremiah 03/17/2015 tablet by 4 JANNIE Zendejas mouth twice a day x's 7 days Darlyn Allergy 03/06/2015 - Hx Tablets 180mg 30tabs 1 tab by 461. Jeremiah 03/17/2015 mouth daily 1 JANNIE Zendejas x's 4-6 weeks Zyrtec Allergy 02/10/2015 - Hx Capsules 10mg 30caps 1 by mouth Tanvir 02/14/2015 every day Pablo Vizcarra Hydroxyzine HCL 02/02/2015 - Hx Tablets 25mg 2 tab by 698. Jeremiah 02/02/2015 mouth every 8 [place]cu[place]orean, HAND EDGER 6 hours as needed for itching Ranitidine HCL 02/02/2015 - Hx Capsules 150mg 60caps 1 capsule 698. Jeremiah 03/06/2015 po bid 9 JANNIE Zendejas Darlyn Allergy 02/02/2015 - Hx Tablets 180mg 60tabs 2 tab by 698. Tanvir 02/10/2015 mouth daily 9 Pablo Vizcarra Prednisone 02/02/2015 - Hx Tablets 10mg 30tabs 5 698. Jeremiah 02/12/2015 pillsx's2da 9 JANNIE Zendejas ys, 4pillsx's2d ays, 3pillsx's2d ays, 2pillsx's2d ays,1pillx' s2days,then stop Hydroxyzine HCL 01/26/2015 - Hx Tablets 25mg 56tabs 2 tab by 698. Jeremiah 02/02/2015 mouth every 8 Aashish HAND EDGER 6 hours as needed for itching Triamcinolone 01/23/2015 - Hx Cream 0.1% 30G apply Jeremiah Acetonide 01/26/2015 topically JANNIE Zendejas twice a day to affected sites Lorazepam 01/16/2015 - Hx Tablets 0.5mg 15tabs 1 by mouth Claudia, 01/16/2015 tid as Jean Claude, needed DO Lorazepam 01/16/2015 - Hx Tablets 0.5mg 15tabs 1 by mouth Ecuadorean, 01/16/2015 tid as JANNIE Daniels needed Alprazolam 01/16/2015 - Hx Tablets 0.5mg 60tabs 1/2-1 tab Jeremiah 03/17/2015 by mouth JANNIE Zendejas twice a day as needed Hydrocortisone 01/16/2015 - Hx Cream 1% 1tube apply tid Jeremiah Plus 01/26/2015 daily until Ecuadorean, HAND EDGER rash resolved Hydroxyzine HCL 01/13/2015 - Hx Tablets 25mg 56tabs 2 tab by 698. Jeremiah 01/16/2015 mouth every 8 [place]cu[place]orean, HAND EDGER 6 hours as needed for itching Ranitidine 150 01/13/2015 - Hx Tablets 150mg 30tabs 1 tablet po 698. Jeremiah Maximum Strength 02/02/2015 qd until 8 [place]cuadorean, HAND EDGER hives resolve Tudorza Pressair 01/13/2015 - Hx Aerosol 400mc 1units 1 493. Jeremiah 02/02/2015 g/Act inhalation 10 [place]cu[place]orean, HAND EDGER po qd Alprazolam 01/05/2015 - Hx Tablets 0.5mg 20tabs 1 PO daily Jeremiah 01/16/2015 Dispers [place]cu[place]orean, HAND EDGER Vitamin D 12/11/2014 - Hx Tablets 1000U 30tabs 1 by mouth J00 Jeremiah 10/31/2016 nit every day [place]cuadorean, HAND EDGER Polytrim 12/07/2014 - Hx Solution 00435 1units 1 drop left 372. Jeremiah 12/12/2014 -0.1U eye every 00 [place]cu[place]orean, HAND EDGER nit/M four hours L-% while awake x's 5 days Hydroxyzine HCL 10/11/2014 - Hx Tablets 25mg 56tabs 2 tab by 698. Jeremiah 01/13/2015 mouth every 8 [place]cuadorean, HAND EDGER 6 hours as needed for itching Permethrin 10/11/2014 - Hx Cream 5% 1units apply from 133. Jeremiah 12/07/2014 neck to 0 [place]cuadorean, HAND EDGER toes topically leave on 8-14 hours then bath off. repeat in 7 days. Clarithromycin 09/29/2014 - Hx Tablets 500mg 14tabs 1 tab po Jeremiah 10/06/2014 bid x's 7 Ecuadorean, HAND EDGER days Afrin 12 Hour 09/29/2014 - Hx Solution 0.05% 1units 2-3 sprays Jeremiah 12/07/2014 both nares Ecuadorean, HAND EDGER every 12 hours as needed rhinorhea Amoxicillin/Clavu 09/26/2014 - Hx Tablets 875-1 20tabs 1 tablet by 461. Jeremiah lanate Potassium 09/29/2014 25mg mouth twice 9 [place]cuadorean, HAND EDGER a day x's 10 days Cheratussin ac 09/26/2014 - Hx Syrup 100-1 120ml 1-2 786. Jeremiah 10/01/2014 0mg/5 teaspoon by 2 [place]cuadorean, HAND EDGER ML mouth every 4 to 6 hours as needed cough Citalopram 08/22/2014 - Hx Tablets 40mg 30tabs 1 tablet po 311 Jeremiah Hydrobromide 08/30/2014 daily [place]cu[place]orean, HAND EDGER Prednisone 08/18/2014 - Hx Tablets 20mg 10tabs 2 by mouth Unknown 09/26/2014 every day Cheratussin ac 08/18/2014 - Hx Syrup 100-1 236ml 1-2 tsp by Jeremiah 09/26/2014 0mg/5 mouth every Ecuadorean, HAND EDGER ML 4 to 6 hours as needed cough Zithromax 08/18/2014 - Hx Tablets 250mg 11tabs 1 tab take Unknown 09/26/2014 2 on day 1, then 1 daily Sertraline HCL 12/16/2013 - Hx Tablets 100mg 30tabs 1 po qd [place] Pearce. 08/09/2014 Pablo Yadav Sertraline HCL 07/12/2013 - Hx Tablets 50mg 45tabs take 1.5 po Dedra Aparicio 12/16/2013 qd Pablo Rea Sertraline HCL 06/16/2013 - Hx Tablets 25mg 90tabs 3 po qhs [place] S. 07/12/2013 Pablo Yadav Symbicort 02/25/2013 - Hx Aerosol 160-4 1units 2 puff 493. Jeremiah 05/09/2015 .5mcg inhaled 90 Ecuadorean, HAND EDGER /Act twice a day Keppra 02/11/2013 - Hx Tablets 500mg 30tabs 1 po at 345. Clinton Pearce. 06/16/2013 bedtime 91 Pablo Yadav Spiriva 10/27/2012 - Hx Capsules 18mcg 30caps 1 780. Tanvir Handihaler 02/25/2013 inhalation 4 Pachikara, po qam M.D. Prednisone 09/28/2012 - Hx Tablets 10mg 30tabs 5tabx 493. [place] 10/27/2012 2days,4 90 Pachikara, [id number] M.D. [id number], [id number], 1tabxday. Topamax 09/07/2012 - Hx Tablets 25mg 30tabs 1 tab PO hs 346. [place] 09/28/2012 92 Pablo Vizcarra Symbicort 07/20/2012 - Hx Aerosol 80-4. 1units 2 puff 493. Yudi 02/25/2013 5mcg/ inhaled bid 90 Jorge Carlin M.D. Sertraline HCL 07/20/2012 - Hx Tablets 50mg 90tabs Take One Yudi 06/16/2013 Tablet By Richy Carlin One M.D. Time Daily Lamotrigine - Hx Tablets 200mg 60tabs 1 po tid Unknown 07/21/2012 Loratadine - Hx Tablets 10mg 30tabs 1 po qd as Dinorah 08/09/2014 needed Pablo Lorenzo Nadolol - Hx Tablets 40mg 90tabs 1/2 tablet Yudi 09/07/2012 po qd Pablo Carlin Sertraline HCL - Hx Tablets 25mg 90tabs 1 po qd Unknown 07/20/2012 Ventolin HFA - Hx Aerosol 108(9 1units 2 puffs po Unknown 07/20/2012 0Base qid prn ) mcg/a c Symbicort - Hx Aerosol 2units 1 puff Unknown 07/20/2012 inhaled bid Vicodin - Hx Tablets 5-500 40tabs 1-2 po q Unknown 07/20/2012 mg 8hrs prn pain Ventolin HFA - Hx Aerosol 108(9 1units 2 puffs po Unknown 03/13/2016 0Base qid prn ) mcg/a c Zithromax - Hx Tablets 250mg 6tabs 1 tab take Unknown 10/27/2012 2 on day 1, then 1 daily Zyrtec Allergy - Hx Capsules 10mg 30caps 1 by mouth Jeremiah 02/02/2015 every day JANNIE Zendejas Phenazopyridine - Hx Tablets 200mg 20tabs 1 by mouth Unknown HCL 08/17/2014 tid as needed Benzonatate - Hx Capsules 100mg 30caps one by Unknown 10/11/2014 mouth three times daily as needed for cough Triamcinolone - Hx Cream 0.1% 30gm apply twice Unknown Acetonide 10/11/2014 a day until clear Omeprazole - Hx Capsules DR 20mg 90caps 1 by mouth Unknown 08/17/2014 every day Spiriva - Hx Capsules 18mcg 90caps 1 Jeremiah Handihaler 01/13/2015 inhalation Ecu[place]orean, HAND EDGER by mouth every morning Proair HFA - Hx Aerosol 108(9 1units 2 puffs by Unknown 10/11/2014 0Base mouth every ) 4 hours as mcg/A needed ct Vitamin D3 - Hx Capsules 75953 8caps 1 by mouth Unknown Maximum Strength 12/11/2014 Unit every week Lorazepam - Hx Tablets 0.5mg 15tabs 1 by mouth Unknown 10/11/2014 tid as needed Cetirizine HCL - Hx Tablets 10mg 1 by mouth Unknown 08/17/2014 every day Omeprazole - Hx Capsules DR 40mg 30caps 1 by mouth Jeremiah 02/02/2015 every day Aashish HAND EDGER Citalopram - Hx Tablets 20mg 30tabs 1 by mouth Unknown Hydrobromide 08/22/2014 every day Oxymetazoline HCL - Hx Solution 0.05% Unknown 10/11/2014 Hydroxyzine HCL - Hx Tablets 50mg 30tabs 1 po bid if Jeremiah 11/13/2015 needed Aashish HAND EDGER Lorazepam - Hx Tablets 1mg 1 po q 8 Unknown 06/13/2015 to 12 hours as needed Citalopram - Hx Tablets 20mg Unknown Hydrobromide 03/02/2015 Acetaminophen - Hx Tablets 500mg 240tabs 2 tablets Jeremiah 10/29/2016 every 6-8 [place]cu[place]orean, HAND EDGER hours as needed for pain Dulera - Hx Aerosol 100-5 2 puff Unknown 06/13/2015 mcg/A twice a day ct Zithromax - Hx Tablets 500mg one by Unknown 08/14/2015 mouth one per day Keflex - Hx Capsules 500mg 1 by mouth Unknown 10/11/2015 three times a day Robitussin Chest - Hx Syrup 100mg 118ml 1-2 Baldev Congestion 10/10/2016 /5ML teaspoon at Ebony Bonner, night as M.DBryant,FACP needed Ra Motion - Hx Tablets 25mg 30tabs take 1/2 Jeremiah Sickness Relief 04/08/2017 tab by Ecu[place]orean, HAND EDGER mouth three times daily if needed for vertigo Nitrofurantoin - Hx Capsules 50mg Unknown Macrocrystal 07/17/2017 Phenazopyridine - Hx Tablets 100mg Unknown HCL 07/20/2017 Methocarbamol - Hx Tablets 500mg Take One Unknown 07/17/2017 Tablet By Mouth Three Times A Day as Needed For Spasms Meloxicam - Hx Tablets 7.5mg Take One Unknown 07/17/2017 Tablet By Mouth Twice A Day Azo Urinary Tract - Hx Tablets 162-1 prn Unknown Defense 07/20/2017 62.5m g Immunizations CPT Code Status Date Vaccine Reaction Lot # 32502 Given 01/21/2018 Influenza Virus Vaccine, [id number] Quadrivalent, Split, Preservative Free 14818 Given 10/16/2017 Pneumonia Vaccine no reaction, pt [id number] tolerated well Q2035 Given 10/16/2015 Afluria Vaccine [id number] Given 08/20/2012 Tdap - [id number] Tetanus/Diptheria/Acellula r Pertussis Q2038 Given 07/20/2012 Fluzone Vaccine [id number] Ordered 07/04/2016 Afluria Vaccine Vital Signs Date Vital Result Comment 03/10/2018 Height 68 inches 5'8" Weight 344.00 lb Heart Rate 96 /min BP Systolic 140 mmHg BP Diastolic 90 mmHg O2 % BldC Oximetry 97 % BMI (Body Mass Index) 52.3 kg/m2 01/21/2018 Weight 352.00 lb Heart Rate 108 /min BP Systolic Sitting 128 mmHg BP Diastolic Sitting 86 mmHg Body Temperature 96.8 F O2 % BldC Oximetry 99 % 01/15/2018 Weight 343.00 lb Heart Rate 87 /min BP Systolic 137 mmHg BP Diastolic 82 mmHg Body Temperature 98.1 F O2 % BldC Oximetry 97 % 01/02/2018 Height 68 inches 5'8" Weight 343.00 lb Heart Rate 82 /min BP Systolic Sitting 132 mmHg BP Diastolic Sitting 88 mmHg Respiratory Rate 16 /min BMI (Body Mass Index) 52.1 kg/m2 10/16/2017 Height 68 inches 5'8" Weight 349.12 lb Heart Rate 95 /min BP Systolic Sitting 122 mmHg BP Diastolic Sitting 78 mmHg Body Temperature 97.0 F O2 % BldC Oximetry 97 % BMI (Body Mass Index) 53.1 kg/m2 09/12/2017 Height 68 inches 5'8" Weight 338.00 lb Heart Rate 70 /min BP Systolic 108 mmHg BP Diastolic 80 mmHg BMI (Body Mass Index) 51.4 kg/m2 09/09/2017 Height 68 inches 5'8" Weight 336.00 lb Heart Rate 80 /min BP Systolic 125 mmHg BP Diastolic 70 mmHg Respiratory Rate 14 /min O2 % BldC Oximetry 98 % BMI (Body Mass Index) 51.1 kg/m2 07/21/2017 Height 68 inches 5'8" Weight 336.00 lb Heart Rate 84 /min BP Systolic Sitting 128 mmHg BP Diastolic Sitting 80 mmHg Respiratory Rate 14 /min O2 % BldC Oximetry 95 % BMI (Body Mass Index) 51.1 kg/m2 Neck Circumference in inches 16.5 07/18/2017 Height 68 inches 5'8" Weight 331.00 lb Heart Rate 74 /min BP Systolic 134 mmHg BP Diastolic 74 mmHg BMI (Body Mass Index) 50.3 kg/m2 07/17/2017 Weight 331.00 lb Heart Rate 92 /min BP Systolic Sitting 142 mmHg BP Diastolic Sitting 80 mmHg Body Temperature 98.0 F O2 % BldC Oximetry 98 % 06/18/2017 Weight 338.00 lb Heart Rate 86 /min BP Systolic Sitting 120 mmHg BP Diastolic Sitting 80 mmHg Body Temperature 98.4 F O2 % BldC Oximetry 98 % 05/15/2017 Height 68 inches 5'8" Weight 338.25 lb Heart Rate 99 /min BP Systolic 122 mmHg BP Diastolic 74 mmHg Body Temperature 98.2 F O2 % BldC Oximetry 97 % BMI (Body Mass Index) 51.4 kg/m2 04/18/2017 Height 68 inches 5'8" Weight 318.00 lb Heart Rate 74 /min BP Systolic Sitting 122 mmHg BP Diastolic Sitting 80 mmHg Respiratory Rate 17 /min BMI (Body Mass Index) 48.3 kg/m2 04/08/2017 Height 68 inches 5'8" Weight 317.25 lb Heart Rate 80 /min BP Systolic 118 mmHg BP Diastolic 78 mmHg Body Temperature 97.5 F O2 % BldC Oximetry 98 % BMI (Body Mass Index) 48.2 kg/m2 04/02/2017 Weight 318.00 lb Heart Rate 72 /min BP Systolic Sitting 124 mmHg BP Diastolic Sitting 78 mmHg Respiratory Rate 15 /min Body Temperature 98.0 F O2 % BldC Oximetry 97 % 03/25/2017 Height 68 inches 5'8" Weight 316.00 lb Heart Rate 80 /min BP Systolic 124 mmHg BP Diastolic 82 mmHg Body Temperature 98.0 F O2 % BldC Oximetry 99 % BMI (Body Mass Index) 48.0 kg/m2 10/31/2016 Weight 327.38 lb Heart Rate 65 /min BP Systolic Sitting 144 mmHg BP Diastolic Sitting 90 mmHg Body Temperature 97.9 F O2 % BldC Oximetry 98 % 10/29/2016 Weight 329.50 lb Heart Rate 72 /min BP Systolic Sitting 138 mmHg BP Diastolic Sitting 84 mmHg Body Temperature 97.7 F O2 % BldC Oximetry 99 % 10/17/2016 Height 68 inches 5'8" Weight 336.00 lb Heart Rate 84 /min BP Systolic Sitting 142 mmHg BP Diastolic Sitting 76 mmHg BMI (Body Mass Index) 51.1 kg/m2 10/07/2016 Height 68 inches 5'8" Weight 331.00 lb Heart Rate 92 /min BP Systolic Sitting 136 mmHg BP Diastolic Sitting 78 mmHg Body Temperature 99.1 F O2 % BldC Oximetry 97 % BMI (Body Mass Index) 50.3 kg/m2 05/10/2016 Height 68 inches 5'8" Weight 330.00 lb Heart Rate 76 /min BP Systolic Sitting 106 mmHg BP Diastolic Sitting 80 mmHg Respiratory Rate 14 /min BMI (Body Mass Index) 50.2 kg/m2 05/03/2016 Heart Rate 100 /min Recheck 88 BP Systolic Sitting 122 mmHg BP Diastolic Sitting 66 mmHg Body Temperature 99.0 F O2 % BldC Oximetry 98 % 03/26/2016 Height 68 inches 5'8" Weight 334.00 lb Heart Rate 96 /min BP Systolic Sitting 138 mmHg BP Diastolic Sitting 88 mmHg Body Temperature 99.3 F O2 % BldC Oximetry 98 % BMI (Body Mass Index) 50.8 kg/m2 02/22/2016 Height 68 inches 5'8" Weight 338.00 lb Heart Rate 84 /min BP Systolic Sitting 118 mmHg BP Diastolic Sitting 88 mmHg O2 % BldC Oximetry 98 % BMI (Body Mass Index) 51.4 kg/m2 01/24/2016 Height 68 inches 5'8" Weight 336.50 lb Heart Rate 94 /min BP Systolic Sitting 114 mmHg BP Diastolic Sitting 78 mmHg Body Temperature 98.3 F O2 % BldC Oximetry 96 % BMI (Body Mass Index) 51.2 kg/m2 01/01/2016 Height 68 inches 5'8" Weight 332.25 lb Heart Rate 78 /min BP Systolic Sitting 122 mmHg BP Diastolic Sitting 76 mmHg Body Temperature 99.2 F O2 % BldC Oximetry 98 % BMI (Body Mass Index) 50.5 kg/m2 12/20/2015 Height 68 inches 5'8" Weight 338.50 lb Heart Rate 109 /min Recheck 96 BP Systolic Sitting 128 mmHg BP Diastolic Sitting 78 mmHg Body Temperature 98.1 F O2 % BldC Oximetry 99 % BMI (Body Mass Index) 51.5 kg/m2 12/18/2015 Height 68 inches 5'8" Weight 336.25 lb Heart Rate 105 /min BP Systolic Sitting 118 mmHg BP Diastolic Sitting 78 mmHg Body Temperature 98.5 F O2 % BldC Oximetry 98 % BMI (Body Mass Index) 51.1 kg/m2 11/14/2015 Height 68 inches 5'8" Weight 313.00 lb Heart Rate 76 /min BP Systolic Sitting 132 mmHg BP Diastolic Sitting 82 mmHg Respiratory Rate 16 /min BMI (Body Mass Index) 47.6 kg/m2 10/30/2015 Height 68 inches 5'8" Weight 326.25 lb Heart Rate 94 /min BP Systolic Sitting 124 mmHg BP Diastolic Sitting 82 mmHg Body Temperature 97.7 F O2 % BldC Oximetry 98 % BMI (Body Mass Index) 49.6 kg/m2 10/11/2015 Height 68 inches 5'8" Weight 323.50 lb Heart Rate 94 /min BP Systolic Sitting 132 mmHg BP Diastolic Sitting 78 mmHg Body Temperature 98.6 F O2 % BldC Oximetry 98 % BMI (Body Mass Index) 49.2 kg/m2 09/13/2015 Height 68 inches 5'8" Weight 320.25 lb Heart Rate 95 /min BP Systolic Sitting 124 mmHg BP Diastolic Sitting 78 mmHg Body Temperature 98.1 F O2 % BldC Oximetry 98 % BMI (Body Mass Index) 48.7 kg/m2 08/14/2015 Height 68 inches 5'8" Weight 325.25 lb Heart Rate 90 /min BP Systolic Sitting 124 mmHg BP Diastolic Sitting 78 mmHg Body Temperature 98.0 F O2 % BldC Oximetry 98 % BMI (Body Mass Index) 49.4 kg/m2 06/22/2015 Height 68 inches 5'8" Weight 320.00 lb Heart Rate 102 /min BP Systolic Sitting 120 mmHg BP Diastolic Sitting 78 mmHg Body Temperature 98.2 F O2 % BldC Oximetry 98 % BMI (Body Mass Index) 48.7 kg/m2 06/13/2015 Height 68 inches 5'8" Weight 317.00 lb Heart Rate 87 /min BP Systolic Sitting 122 mmHg BP Diastolic Sitting 62 mmHg Body Temperature 98.4 F O2 % BldC Oximetry 98 % BMI (Body Mass Index) 48.2 kg/m2 05/16/2015 Height 68 inches 5'8" Weight 324.00 lb Heart Rate 99 /min BP Systolic Sitting 118 mmHg BP Diastolic Sitting 68 mmHg Body Temperature 98.2 F O2 % BldC Oximetry 98 % BMI (Body Mass Index) 49.3 kg/m2 05/09/2015 Weight 315.38 lb Heart Rate 80 /min BP Systolic Sitting 106 mmHg BP Diastolic Sitting 64 mmHg Body Temperature 97.8 F O2 % BldC Oximetry 98 % 03/17/2015 Weight 322.00 lb Heart Rate 94 /min BP Systolic Sitting 124 mmHg BP Diastolic Sitting 78 mmHg Body Temperature 98.6 F O2 % BldC Oximetry 98 % 03/06/2015 Height 68 inches 5'8" Weight 318.00 lb Heart Rate 85 /min BP Systolic Sitting 136 mmHg BP Diastolic Sitting 86 mmHg Body Temperature 98.5 F O2 % BldC Oximetry 98 % BMI (Body Mass Index) 48.3 kg/m2 03/02/2015 Height 68 inches 5'8" Weight 321.00 lb Heart Rate 84 /min BP Systolic Sitting 136 mmHg BP Diastolic Sitting 88 mmHg BMI (Body Mass Index) 48.8 kg/m2 02/14/2015 Height 68 inches 5'8" Weight 321.38 lb Heart Rate 92 /min BP Systolic Sitting 132 mmHg 120/80 BP Diastolic Sitting 90 mmHg 120/80 Body Temperature 98.1 F O2 % BldC Oximetry 98 % BMI (Body Mass Index) 48.9 kg/m2 02/02/2015 Weight 316.25 lb Heart Rate 91 /min BP Systolic Sitting 114 mmHg BP Diastolic Sitting 74 mmHg Body Temperature 98.9 F O2 % BldC Oximetry 97 % 01/26/2015 Height 68 inches 5'8" Weight 321.38 lb Heart Rate 100 /min BP Systolic Sitting 128 mmHg BP Diastolic Sitting 80 mmHg O2 % BldC Oximetry 99 % BMI (Body Mass Index) 48.9 kg/m2 01/16/2015 Weight 317.25 lb Heart Rate 95 /min BP Systolic Sitting 128 mmHg BP Diastolic Sitting 80 mmHg Body Temperature 98.8 F O2 % BldC Oximetry 98 % 01/13/2015 Height 68 inches 5'8" Weight 319.00 lb Heart Rate 92 /min BP Systolic Sitting 130 mmHg BP Diastolic Sitting 80 mmHg O2 % BldC Oximetry 98 % BMI (Body Mass Index) 48.5 kg/m2 12/15/2014 Height 68 inches 5'8" Weight 309.00 lb Heart Rate 86 /min BP Systolic Sitting 130 mmHg BP Diastolic Sitting 90 mmHg BMI (Body Mass Index) 47.0 kg/m2 12/07/2014 Weight 309.25 lb Heart Rate 81 /min BP Systolic Sitting 154 mmHg BP Diastolic Sitting 92 mmHg O2 % BldC Oximetry 98 % 10/11/2014 Weight 303.50 lb Heart Rate 74 /min BP Systolic Sitting 112 mmHg BP Diastolic Sitting 80 mmHg Body Temperature 99.6 F O2 % BldC Oximetry 98 % 09/26/2014 Weight 310.25 lb Heart Rate 80 /min BP Systolic Sitting 111 mmHg BP Diastolic Sitting 68 mmHg Respiratory Rate 16 /min Body Temperature 97.5 F 08/30/2014 Height 67.25 inches 5'7.25" Weight 303.50 lb Heart Rate 96 /min BP Systolic Sitting 137 mmHg auto cuff BP Diastolic Sitting 70 mmHg auto cuff Body Temperature 98.3 F BMI (Body Mass Index) 47.2 kg/m2 08/22/2014 Height 68 inches 5'8" Weight 308.00 lb Heart Rate 98 /min BP Systolic Sitting 130 mmHg BP Diastolic Sitting 76 mmHg Respiratory Rate 16 /min Body Temperature 98.8 F BMI (Body Mass Index) 46.8 kg/m2 08/18/2014 Height 68 inches 5'8" Weight 298.00 lb Heart Rate 97 /min BP Systolic Sitting 120 mmHg BP Diastolic Sitting 82 mmHg BMI (Body Mass Index) 45.3 kg/m2 08/09/2014 Weight 298.00 lb Heart Rate 90 /min BP Systolic Sitting 132 mmHg BP Diastolic Sitting 82 mmHg 06/16/2013 Heart Rate 89 /min BP Systolic Sitting 132 mmHg BP Diastolic Sitting 78 mmHg Respiratory Rate 16 /min 02/25/2013 Weight 296.00 lb Heart Rate 80 /min BP Systolic Sitting 126 mmHg BP Diastolic Sitting 70 mmHg 02/17/2013 Heart Rate 63 /min BP Systolic Sitting 120 mmHg BP Diastolic Sitting 64 mmHg Respiratory Rate 16 /min 02/11/2013 Weight 289.25 lb Heart Rate 75 /min BP Systolic Sitting 134 mmHg BP Diastolic Sitting 75 mmHg Body Temperature 98.6 F 10/27/2012 Height 67.25 inches 5'7.25" Weight 278.00 lb Heart Rate 75 /min BP Systolic Sitting 114 mmHg BP Diastolic Sitting 76 mmHg BMI (Body Mass Index) 43.2 kg/m2 09/28/2012 Height 67.25 inches 5'7.25" Weight 256.00 lb Heart Rate 73 /min BP Systolic Sitting 108 mmHg BP Diastolic Sitting 82 mmHg Body Temperature 97.6 F O2 % BldC Oximetry 99 % BMI (Body Mass Index) 39.8 kg/m2 09/07/2012 Height 67.25 inches 5'7.25" Weight 249.00 lb Heart Rate 60 /min BP Systolic Sitting 120 mmHg BP Diastolic Sitting 68 mmHg BMI (Body Mass Index) 38.7 kg/m2 08/31/2012 Height 66 inches 5'6" per pt Weight 254.00 lb Heart Rate 56 /min BP Systolic Sitting 110 mmHg BP Diastolic Sitting 68 mmHg BMI (Body Mass Index) 41.0 kg/m2 08/20/2012 Height 66 inches 5'6" per pt Weight 253.00 lb Heart Rate 74 /min BP Systolic Sitting 130 mmHg BP Diastolic Sitting 66 mmHg BMI (Body Mass Index) 40.8 kg/m2 07/20/2012 Height 66 inches 5'6" per pt Weight 250.00 lb per pt Heart Rate 78 /min BP Systolic Sitting 162 mmHg BP Diastolic Sitting 78 mmHg BMI (Body Mass Index) 40.3 kg/m2 Results Test Date Test Result H/L Range Note Laboratory test 08/25/2017 TSH (Thyroid Stim 1.89 mcIU/mL 0.34-5.60 finding Horm) Laboratory test 07/22/2017 Hemoglobin A1c 5.2 % Less than 6.0 1 finding (Glyco HGB) Comp Metabolic 07/22/2017 Sodium 137 mmol/L 133-145 Panel Potassium 4.1 mmol/L 3.5-5.0 Chloride 105 mmol/L 101-111 Co2 Carbon Dioxide 23 mmol/L 22-32 Anion Gap 9 mmol/L 2-11 Glucose 94 mg/dL 70-100 Blood Urea Nitrogen 13 mg/dL 6-24 Creatinine 0.89 mg/dL 0.51-0.95 BUN/Creatinine Ratio 14.6 8-20 Calcium 9.5 mg/dL 8.6-10.3 Total Protein 6.6 g/dL 6.4-8.9 Albumin 4.0 g/dL 3.2-5.2 Globulin 2.6 g/dL 2-4 Albumin/Globulin Ratio 1.5 1-3 Total Bilirubin 0.60 mg/dL 0.2-1.0 Alkaline Phosphatase 68 U/L 34-104 Alt 11 U/L 7-52 Ast 14 U/L 13-39 Egfr Non- 72.2 >60 Egfr 92.8 >60 2 Urine Culture And 06/18/2017 Urine Culture SEE RESULT BELOW 3 Sensitivities Ua Routine 06/18/2017 Ua Specific [place] 1.015 Ua PH 6 Ua Color martín Ua Appera cloudy Ua WBC trace Ua Protein trace Ua Glucose neg Ua Ketones neg Ua Bilirubin neg Ua Urobilinogen neg Ua Nitrite neg Ua Occult Blood large Laboratory test finding 04/08/2017 Thyroglobulin AB <1.8 IU/mL < 4.0 4 Thyroperoxidase AB 315.57 IU/mL High <9 Free T4 (Free Thyroxine) 0.67 ng/dL 0.61-1.12 TSH (Thyroid Stim Horm) 4.16 mcIU/mL 0.34-5.60 Urinalysis Profile 04/04/2017 Urine Color Yellow Urine Appearance Cloudy Urine Specific [place] 1.019 1.010-1.030 Urine pH 7.0 5-9 Urine Urobilinogen Negative Negative Urine Ketones Negative Negative Urine Protein Negative Negative Urine Leukocytes 3+ Negative Urine Blood 2+ Negative Urine Nitrite Negative Negative Urine Bilirubin Negative Negative Urine Glucose Negative Negative Urine White Blood Cell 2+(11-20/hpf) Absent Urine Red Blood Cell 2+(6-10/hpf) Absent Urine Bacteria Absent Absent Urine Squamous Epithelial Cell Present Absent Laboratory test finding 04/04/2017 Rapid Strep Negative Negative 5 Molecular Laboratory test finding 04/04/2017 Monospot Negative Negative Urine Culture And 04/04/2017 Urine Culture SEE RESULT BELOW 6 Sensitivities Laboratory test finding 04/04/2017 Lactic Acid 1.7 mmol/L 0.5-2.0 7 Rapid Strep A SEE RESULT BELOW 8 CBC Auto Diff 04/04/2017 White Blood Count 8.2 10^3/uL 3.5-10.8 Red Blood Count 3.94 10^6/uL Low 4.0-5.4 Hemoglobin 12.3 g/dL 12.0-16.0 Hematocrit 37 % 35-47 Mean Corpuscular Volume 94 fL 80-97 Mean Corpuscular Hemoglobin 31 pg 27-31 Mean Corpuscular HGB Conc 33 g/dL 31-36 Red Cell Distribution Width 14 % 10.5-15 Platelet Count 309 10^3/uL 150-450 Mean Platelet Volume 7 um3 Low 7.4-10.4 Abs Neutrophils 6.0 10^3/uL 1.5-7.7 Abs Lymphocytes 1.4 10^3/uL 1.0-4.8 Abs Monocytes 0.5 10^3/uL 0-0.8 Abs Eosinophils 0.2 10^3/uL 0-0.6 Abs Basophils 0.1 10^3/uL 0-0.2 Abs Nucleated RBC 0 10^3/uL Granulocyte % 72.9 % 38-83 Lymphocyte % 17.5 % Low 25-47 Monocyte % 6.1 % 1-9 Eosinophil % 2.7 % 0-6 Basophil % 0.8 % 0-2 Nucleated Red Blood Cells % 0 Laboratory test finding 04/04/2017 Magnesium 1.8 mg/dL Low 1.9-2.7 Troponin-I (TnI) 0.00 ng/mL <0.04 9 TSH (Thyroid Stim Horm) 6.69 mcIU/mL High 0.34-5.60 Comp Metabolic Panel 04/04/2017 Sodium 138 mmol/L 133-145 Potassium 3.7 mmol/L 3.5-5.0 Chloride 107 mmol/L 101-111 Co2 Carbon Dioxide 24 mmol/L 22-32 Anion Gap 7 mmol/L 2-11 Glucose 118 mg/dL High 70-100 Blood Urea Nitrogen 10 mg/dL 6-24 Creatinine 0.76 mg/dL 0.51-0.95 BUN/Creatinine Ratio 13.2 8-20 Calcium 8.8 mg/dL 8.6-10.3 Total Protein 6.9 g/dL 6.4-8.9 Albumin 3.9 g/dL 3.2-5.2 Globulin 3.0 g/dL 2-4 Albumin/Globulin Ratio 1.3 1-3 Total Bilirubin 0.40 mg/dL 0.2-1.0 Alkaline Phosphatase 75 U/L 34-104 Alt 11 U/L 7-52 Ast 12 U/L Low 13-39 Egfr Non- 86.6 >60 Egfr 111.4 >60 10 Laboratory test finding 10/02/2016 Lamotrigine (Lamictal) 12.6 g/mL 2.5 - 15.0 11 Topomax (Topiramate) 2.3 g/mL 12 CBC Auto Diff 10/02/2016 White Blood Count 6.9 10^3/uL 3.5-10.8 Red Blood Count 4.03 10^6/uL 4.0-5.4 Hemoglobin 12.5 g/dL 12.0-16.0 Hematocrit 38 % 35-47 Mean Corpuscular Volume 93 fL 80-97 Mean Corpuscular Hemoglobin 31 pg 27-31 Mean Corpuscular HGB Conc 33 g/dL 31-36 Red Cell Distribution Width 14 % 10.5-15 Platelet Count 311 10^3/uL 150-450 Mean Platelet Volume 8 um3 7.4-10.4 Abs Neutrophils 4.6 10^3/uL 1.5-7.7 Abs Lymphocytes 1.7 10^3/uL 1.0-4.8 Abs Monocytes 0.4 10^3/uL 0-0.8 Abs Eosinophils 0.1 10^3/uL 0-0.6 Abs Basophils 0 10^3/uL 0-0.2 Abs Nucleated RBC 0 10^3/uL Granulocyte % 67.5 % 38-83 Lymphocyte % 24.9 % Low 25-47 Monocyte % 5.1 % 1-9 Eosinophil % 2.0 % 0-6 Basophil % 0.5 % 0-2 Nucleated Red Blood Cells % 0 Comp Metabolic Panel 10/02/2016 Sodium 136 mmol/L 133-145 Potassium 3.8 mmol/L 3.5-5.0 Chloride 108 mmol/L 101-111 Co2 Carbon Dioxide 21 mmol/L Low 22-32 Anion Gap 7 mmol/L 2-11 Glucose 143 mg/dL High 70-100 Blood Urea Nitrogen 10 mg/dL 6-24 Creatinine 0.87 mg/dL 0.51-0.95 BUN/Creatinine Ratio 11.5 8-20 Calcium 9.0 mg/dL 8.6-10.3 Total Protein 6.9 g/dL 6.4-8.9 Albumin 3.8 g/dL 3.2-5.2 Globulin 3.1 g/dL 2-4 Albumin/Globulin Ratio 1.2 1-3 Total Bilirubin 0.40 mg/dL 0.2-1.0 Alkaline Phosphatase 77 U/L 34-104 Alt 17 U/L 7-52 Ast 21 U/L 13-39 Egfr Non- 74.5 >60 Egfr 95.9 >60 13 Laboratory test finding 03/10/2016 HCG < 0.60 mIU/mL 14 TSH (Thyroid Stim Horm) 1.40 ?IU/mL 0.34-5.60 B-Type Natriuretic Peptide BNP 18 pg/mL 15 Lamotrigine (Lamictal) 14.9 g/mL 2.5 - 15.0 16 CKMB 03/10/2016 CKMB ng/mL 1.1 ng/mL 0.6-6.3 Inr/Protime 03/10/2016 Inr 1.10 0.89-1.11 Laboratory test finding 03/10/2016 Partial Thrombo Time 31.7 seconds 26.0 -36.3 PTT Lactic Acid 1.3 mmol/L 0.5-2.0 17 CBC Auto Diff 03/10/2016 White Blood Count 9.6 10^3/uL 3.5-10.8 Red Blood Count 4.58 10^6/uL 4.0-5.4 Hemoglobin 14.3 g/dL 12.0-16.0 Hematocrit 44 % 35-47 Mean Corpuscular Volume 97 fL 80-97 Mean Corpuscular Hemoglobin 31 pg 27-31 Mean Corpuscular HGB Conc 32 g/dL 31-36 Red Cell Distribution Width 14 % 10.5-15 Platelet Count 367 10^3/uL 150-450 Mean Platelet Volume 8 um3 7.4-10.4 Abs Neutrophils 6.6 10^3/uL 1.5-7.7 Abs Lymphocytes 2.2 10^3/uL 1.0-4.8 Abs Monocytes 0.6 10^3/uL 0-0.8 Abs Eosinophils 0.1 10^3/uL 0-0.6 Abs Basophils 0.1 10^3/uL 0-0.2 Abs Nucleated RBC 0 10^3/uL Granulocyte % 68.8 % 38-83 Lymphocyte % 22.8 % Low 25-47 Monocyte % 6.0 % 1-9 Eosinophil % 1.5 % 0-6 Basophil % 0.9 % 0-2 Nucleated Red Blood Cells % 0 Laboratory test finding 03/10/2016 Magnesium 2.2 mg/dL 1.9-2.7 Lipase 8 U/L Low 11.0-82.0 Creatine Kinase(CK) 63 U/L 10-223 C Reactive Protein 14.41 mg/L High < 5.00 18 Troponin-I (TnI) 0.00 ng/mL <0.03 19 Comp Metabolic Panel 03/10/2016 Sodium 137 mmol/L 133-145 Potassium 3.7 mmol/L 3.5-5.0 Chloride 108 mmol/L 101-111 Co2 Carbon Dioxide 22 mmol/L 22-32 Anion Gap 7 mmol/L 2-11 Glucose 117 mg/dL High 70-100 Blood Urea Nitrogen 7 mg/dL 6-24 Creatinine 0.89 mg/dL 0.51-0.95 BUN/Creatinine Ratio 7.9 Low 8-20 Calcium 9.6 mg/dL 8.6-10.3 Total Protein 8.1 g/dL 6.4-8.9 Albumin 4.8 g/dL 3.2-5.2 Globulin 3.3 g/dL 2-4 Albumin/Globulin Ratio 1.5 1-3 Total Bilirubin 0.60 mg/dL 0.2-1.0 Alkaline Phosphatase 85 U/L 34-104 Alt 27 U/L 7-52 Ast 30 U/L 13-39 Egfr Non- 72.6 >60 Egfr 93.4 >60 20 Laboratory test finding 02/26/2016 Vitamin D Total 25(Oh) 31.3 ng/mL 30- 50 CBC Auto Diff 01/01/2016 White Blood Count 8.8 10^3/uL 3.5-10.8 Red Blood Count 4.00 10^6/uL 4.0-5.4 Hemoglobin 13.0 g/dL 12.0-16.0 Hematocrit 39 % 35-47 Mean Corpuscular Volume 96 fL 80-97 Mean Corpuscular Hemoglobin 32 pg High 27-31 Mean Corpuscular HGB Conc 34 g/dL 31-36 Red Cell Distribution Width 14 % 10.5-15 Platelet Count 321 10^3/uL 150-450 Mean Platelet Volume 8 um3 7.4-10.4 Abs Neutrophils 6.2 10^3/uL 1.5-7.7 Abs Lymphocytes 1.9 10^3/uL 1.0-4.8 Abs Monocytes 0.5 10^3/uL 0-0.8 Abs Eosinophils 0.1 10^3/uL 0-0.6 Abs Basophils 0 10^3/uL 0-0.2 Abs Nucleated RBC 0 10^3/uL Granulocyte % 70.5 % 38-83 Lymphocyte % 22.0 % Low 25-47 Monocyte % 5.7 % 1-9 Eosinophil % 1.3 % 0-6 Basophil % 0.5 % 0-2 Nucleated Red Blood Cells % 0 Basic Metabolic Panel 01/01/2016 Sodium 138 mmol/L 133-145 Potassium 4.0 mmol/L 3.5-5.0 Chloride 108 mmol/L 101-111 Co2 Carbon Dioxide 22 mmol/L 22-32 Anion Gap 8 mmol/L 2-11 Glucose 92 mg/dL 70-100 Blood Urea Nitrogen 9 mg/dL 6-24 Creatinine 0.75 mg/dL 0.51-0.95 BUN/Creatinine Ratio 12.0 8-20 Calcium 9.2 mg/dL 8.6-10.3 Egfr Non- 88.5 >60 Egfr 113.8 >60 21 Laboratory test finding 01/01/2016 Alkaline Phosphatase 78 U/L 34-104 Laboratory test finding 12/25/2015 Vitamin D Total 25(Oh) 25.9 ng/mL Low 30-50 22 TSH (Thyroid Stim Horm) 4.01 ?IU/mL 0.34-5.60 23 Lipid Profile (Trig/Chol/HDL) 12/25/2015 Triglycerides 214 mg/dL 24 Cholesterol 177 mg/dL 25 HDL Cholesterol 37.5 mg/dL 26 LDL Cholesterol 97 mg/dL 27 Laboratory test finding 12/25/2015 Glucose 98 mg/dL 70-100 28 Laboratory test finding 12/20/2015 Cytology SEE RESULT BELOW 29 HPV Rna Ww/Reflex Genotype Negative Negative 30 Laboratory test finding 08/14/2015 Urine Culture And SEE RESULT BELOW 31 Sensitivities Urinalysis Profile 08/14/2015 Urine Color Yellow Urine Appearance Cloudy Urine Specific [place] 1.013 1.010-1.030 Urine pH 6.0 5-9 Urine Urobilinogen Negative Negative Urine Ketones Negative Negative Urine Protein Negative Negative Urine Leukocytes 3+ Negative Urine Blood 2+ Negative Urine Nitrite Negative Negative Urine Bilirubin Negative Negative Urine Glucose Negative Negative Urine White Blood Cell Trace(0-5/hpf) Absent Urine Red Blood Cell Trace(0-2/hpf) Absent Urine Bacteria 1+ Absent Urine Squamous Epithelial Cell Present Absent Laboratory test 08/14/2015 Beta HCG (BHCG) < 0.60 mIU/mL finding Quantitative Laboratory test 06/11/2015 HCG Qualitative Negative Negative 32 finding Laboratory test 06/11/2015 Lamotrigine 11.0 g/mL 2.5 - 15.0 33 finding (Lamictal) Urine Culture And Sensitivities SEE RESULT BELOW 34 Urinalysis Profile 06/11/2015 Urine Color Yellow Urine Appearance Cloudy Urine Specific [place] 1.026 1.010-1.030 Urine pH 5.0 5-9 Urine Urobilinogen Negative Negative Urine Ketones Trace Negative Urine Protein Negative Negative Urine Leukocytes Trace Negative Urine Blood 1+ Negative Urine Nitrite Negative Negative Urine Bilirubin Negative Negative Urine Glucose Negative Negative Urine White Blood Cell Trace(0-5/hpf) Absent Urine Red Blood Cell Trace(0-2/hpf) Absent Urine Bacteria 1+ Absent Urine Squamous Epithelial Cell Present Absent CBC Auto Diff 06/11/2015 White Blood Count 6.3 10^3/uL 4.8-10.8 Red Blood Count 4.38 10^6/uL 4.0-5.4 Hemoglobin 13.9 g/dL 12.0-16.0 Hematocrit 42 % 35-47 Mean Corpuscular Volume 96 fL 80-97 Mean Corpuscular Hemoglobin 32 pg High 27-31 Mean Corpuscular HGB Conc 33 g/dL 31-36 Red Cell Distribution Width 14 % 10.5-15 Platelet Count 283 10^3/uL 150-450 Mean Platelet Volume 8 um3 7.4-10.4 Abs Neutrophils 3.5 10^3/uL 1.5-7.7 Abs Lymphocytes 2.1 10^3/uL 1.0-4.8 Abs Monocytes 0.5 10^3/uL 0-0.8 Abs Eosinophils 0.2 10^3/uL 0-0.6 Abs Basophils 0.1 10^3/uL 0-0.2 Abs Nucleated RBC 0 10^3/uL Granulocyte % 55.4 % 38-83 Lymphocyte % 34.0 % 25-47 Monocyte % 7.2 % 1-9 Eosinophil % 2.4 % 0-6 Basophil % 1.0 % 0-2 Nucleated Red Blood Cells % 0.1 Laboratory test 06/11/2015 Lactic Acid 1.0 mmol/L 0.5-2.2 finding Urine Drug SCR ED 06/11/2015 Amphetamine Ur Screen None Detected None Detect & [facility] Barbiturates Urine Screen None Detected None Detect Benzodiazepine Urine Screen None Detected None Detect Urine Cannabinoids Screen None Detected None Detect Urine Cocaine Screen None Detected None Detect Urine Opiates Screen Presumptive Posi <SEE NOTE> None Detect 35 Urine Phencyclidine Screen None Detected None Detect 36 Laboratory test finding 05/16/2015 Culture Throat SEE RESULT BELOW 37 CBC Auto Diff 03/16/2015 White Blood Count 8.6 10^3/uL 4.8-10.8 Red Blood Count 4.41 10^6/uL 4.0-5.4 Hemoglobin 13.9 g/dL 12.0-16.0 Hematocrit 41 % 35-47 Mean Corpuscular Volume 94 fL 80-97 Mean Corpuscular Hemoglobin 32 pg High 27-31 Mean Corpuscular HGB Conc 34 g/dL 31-36 Red Cell Distribution Width 15 % 10.5-15 Platelet Count 362 10^3/uL 150-450 Mean Platelet Volume 8 um3 7.4-10.4 Abs Neutrophils 4.9 10^3/uL 1.5-7.7 Abs Lymphocytes 3.0 10^3/uL 1.0-4.8 Abs Monocytes 0.5 10^3/uL 0-0.8 Abs Eosinophils 0.1 10^3/uL 0-0.6 Abs Basophils 0 10^3/uL 0-0.2 Abs Nucleated RBC 0 10^3/uL Granulocyte % 57.3 % 38-83 Lymphocyte % 34.6 % 25-47 Monocyte % 5.9 % 1-9 Eosinophil % 1.7 % 0-6 Basophil % 0.5 % 0-2 Nucleated Red Blood Cells % 0 Laboratory test finding 03/16/2015 Monospot Negative Negative 38 CBC Auto Diff 03/09/2015 White Blood Count 6.8 10^3/uL 4.8-10.8 Red Blood Count 4.28 10^6/uL 4.0-5.4 Hemoglobin 13.7 g/dL 12.0-16.0 Hematocrit 40 % 35-47 Mean Corpuscular Volume 93 fL 80-97 Mean Corpuscular Hemoglobin 32 pg High 27-31 Mean Corpuscular HGB Conc 35 g/dL 31-36 Red Cell Distribution Width 15 % 10.5-15 Platelet Count 351 10^3/uL 150-450 Mean Platelet Volume 7 um3 Low 7.4-10.4 Abs Neutrophils 3.9 10^3/uL 1.5-7.7 Abs Lymphocytes 2.1 10^3/uL 1.0-4.8 Abs Monocytes 0.5 10^3/uL 0-0.8 Abs Eosinophils 0.2 10^3/uL 0-0.6 Abs Basophils 0.1 10^3/uL 0-0.2 Abs Nucleated RBC 0 10^3/uL Granulocyte % 57.9 % 38-83 Lymphocyte % 31.1 % 25-47 Monocyte % 6.7 % 1-9 Eosinophil % 3.1 % 0-6 Basophil % 1.2 % 0-2 Nucleated Red Blood Cells % 0 Comp Metabolic Panel 03/09/2015 Sodium 136 mmol/L 133-145 Potassium 4.0 mmol/L 3.5-5.0 Chloride 107 mmol/L 101-111 Co2 Carbon Dioxide 24 mmol/L 22-32 Anion Gap 5 mmol/L 2-11 Glucose 94 mg/dL 70-100 Blood Urea Nitrogen 6 mg/dL 6-24 Creatinine 0.73 mg/dL 0.51-0.95 BUN/Creatinine Ratio 8.2 8-20 Calcium 9.3 mg/dL 8.6-10.3 Total Protein 7.1 g/dL 6.4-8.9 Albumin 4.4 g/dL 3.2-5.2 Globulin 2.7 g/dL 2-4 Albumin/Globulin Ratio 1.6 1-3 Total Bilirubin 0.60 mg/dL 0.2-1.0 Alkaline Phosphatase 84 U/L 34-104 Alt 21 U/L 7-52 Ast 24 U/L 13-39 Egfr Non- 91.8 >60 Egfr 118.1 >60 39 Comp Metabolic Panel 02/16/2015 Sodium 139 mmol/L 133-145 Potassium 4.3 mmol/L 3.5-5.0 Chloride 106 mmol/L 101-111 Co2 Carbon Dioxide 26 mmol/L 22-32 Anion Gap 7 mmol/L 2-11 Glucose 93 mg/dL 70-100 Blood Urea Nitrogen 14 mg/dL 6-24 Creatinine 0.74 mg/dL 0.51-0.95 BUN/Creatinine Ratio 18.9 8-20 Calcium 9.6 mg/dL 8.6-10.3 Total Protein 6.6 g/dL 6.4-8.9 Albumin 4.1 g/dL 3.2-5.2 Globulin 2.5 g/dL 2-4 Albumin/Globulin Ratio 1.6 1-3 Total Bilirubin 0.40 mg/dL 0.2-1.0 Alkaline Phosphatase 69 U/L 34-104 Alt 15 U/L 7-52 Ast 15 U/L 13-39 Egfr Non- 90.4 >60 Egfr 116.2 >60 40 Laboratory test finding 02/16/2015 Magnesium 2.0 mg/dL 1.9-2.7 TSH (Thyroid Stimulating Horm) 1.87 IU/mL 0.34-5.60 Lamotrigine 7.8 g/mL 2.5 - 15.0 41 CBC Auto Diff 02/16/2015 White Blood Count 11.5 10^3/uL High 4.8-10.8 Red Blood Count 4.32 10^6/uL 4.0-5.4 Hemoglobin 13.4 g/dL 12.0-16.0 Hematocrit 40 % 35-47 Mean Corpuscular Volume 93 fL 80-97 Mean Corpuscular Hemoglobin 31 pg 27-31 Mean Corpuscular HGB Conc 33 g/dL 31-36 Red Cell Distribution Width 16 % High 10.5-15 Platelet Count 294 10^3/uL 150-450 Mean Platelet Volume 8 um3 7.4-10.4 Abs Neutrophils 8.1 10^3/uL High 1.5-7.7 Abs Lymphocytes 2.3 10^3/uL 1.0-4.8 Abs Monocytes 0.9 10^3/uL High 0-0.8 Abs Eosinophils 0.2 10^3/uL 0-0.6 Abs Basophils 0.1 10^3/uL 0-0.2 Abs Nucleated RBC 0 10^3/uL Granulocyte % 70.4 % 38-83 Lymphocyte % 20.1 % Low 25-47 Monocyte % 7.4 % 1-9 Eosinophil % 1.3 % 0-6 Basophil % 0.8 % 0-2 Nucleated Red Blood Cells % 0 Urinalysis Profile 02/16/2015 Urine Color Yellow Urine Appearance Cloudy Urine Specific [place] 1.017 1.010-1.030 Urine pH 6.0 5-9 Urine Urobilinogen Negative Negative Urine Ketones Negative Negative Urine Protein Negative Negative Urine Leukocytes 2+ Negative Urine Blood Negative Negative Urine Nitrite Negative Negative Urine Bilirubin Negative Negative Urine Glucose Negative Negative Urine White Blood Cell 2+(11-20/hpf) Absent Urine Red Blood Cell 1+(3-5/hpf) Absent Urine Bacteria Absent Absent Urine Squamous Epithelial Cell Present Absent Urine Culture And 02/16/2015 Urine Culture (SEE NOTE) 42 Sensitivities CBC Auto Diff 02/14/2015 White Blood Count 13.0 10^3/uL High 4.8-10.8 Red Blood Count 4.32 10^6/uL 4.0-5.4 Hemoglobin 13.2 g/dL 12.0-16.0 Hematocrit 40 % 35-47 Mean Corpuscular Volume 92 fL 80-97 Mean Corpuscular Hemoglobin 31 pg 27-31 Mean Corpuscular HGB Conc 33 g/dL 31-36 Red Cell Distribution Width 16 % High 10.5-15 Platelet Count 356 10^3/uL 150-450 Mean Platelet Volume 8 um3 7.4-10.4 Abs Neutrophils 8.6 10^3/uL High 1.5-7.7 Abs Lymphocytes 3.2 10^3/uL 1.0-4.8 Abs Monocytes 1.0 10^3/uL High 0-0.8 Abs Eosinophils 0.2 10^3/uL 0-0.6 Abs Basophils 0.1 10^3/uL 0-0.2 Abs Nucleated RBC 0.01 10^3/uL Granulocyte % 66.2 % 38-83 Lymphocyte % 24.3 % Low 25-47 Monocyte % 7.3 % 1-9 Eosinophil % 1.4 % 0-6 Basophil % 0.8 % 0-2 Nucleated Red Blood Cells % 0.1 Comp Metabolic Panel 02/14/2015 Sodium 136 mmol/L 133-145 Potassium 4.5 mmol/L 3.5-5.0 Chloride 103 mmol/L 101-111 Co2 Carbon Dioxide 26 mmol/L 22-32 Anion Gap 7 mmol/L 2-11 Glucose 89 mg/dL 70-100 Blood Urea Nitrogen 13 mg/dL 6-24 Creatinine 0.79 mg/dL 0.51-0.95 BUN/Creatinine Ratio 16.5 8-20 Calcium 9.8 mg/dL 8.6-10.3 Total Protein 6.8 g/dL 6.4-8.9 Albumin 4.3 g/dL 3.2-5.2 Globulin 2.5 g/dL 2-4 Albumin/Globulin Ratio 1.7 1-3 Total Bilirubin 0.40 mg/dL 0.2-1.0 Alkaline Phosphatase 73 U/L 34-104 Alt 14 U/L 7-52 Ast 12 U/L Low 13-39 Egfr Non- 83.8 >60 Egfr 107.8 >60 43 Laboratory test 01/26/2015 Surgical Pathology RUN DATE: finding <SEE NOTE> Surgical Pathology 01/26/2015 S RUN DATE: <SEE NOTE> Laboratory test 12/28/2014 Lamotrigine 12.4 g/mL 2.5 - 15.0 46 finding Vitamin D 1,25 And 12/07/2014 Vitamin D 98 pg/mL 18-78 47 Vitamin D,2 1,25-Dihydroxy Laboratory test 12/07/2014 Lamotrigine 9.5 g/mL 2.5 - 15.0 48 finding Vitamin D, 25 12/07/2014 25-Hydroxy Vitamin D2 73 ng/mL Hydroxy 25-Hydroxy Vitamin D3 6.3 ng/mL 25-Hydroxy Vitamin D Total 79 ng/mL 49 Laboratory test finding 12/07/2014 Hemoglobin A1c 5.1 5-7 Lipid Profile (Trig/Chol/HDL) 08/10/2014 Triglycerides 150 mg/dL 50, 51 Cholesterol 159 mg/dL 50, 52 HDL Cholesterol 26.7 mg/dL 50, 53 LDL Cholesterol 102 mg/dL 50, 54 Vitamin D, 25 Hydroxy 08/10/2014 25-Hydroxy Vitamin D2 41 ng/mL 50 25-Hydroxy Vitamin D3 6.3 ng/mL 50 25-Hydroxy Vitamin D Total 47 ng/mL 50, 55 Iron & Iron Binding Capacity 08/10/2014 Iron 46 g/dL Low 50-212 50 Unsaturated Iron Binding 361 g/dL 50 Total Iron Binding Capacity 407 g/dL 250-450 50 % Iron Saturation 11 % Low 15-55 50 Laboratory test finding 08/10/2014 Ferritin < 10.0 ng/mL Low 11-307 50 , 56 Vitamin B12 460 pg/mL 180-914 50, 57 Folate 11.39 ng/mL >3.99 50, 58 Laboratory test 08/10/2014 TSH (Thyroid 2.24 IU/mL 0.34-5.60 50, 59 finding Stimulating Horm) CBC Auto Diff 08/10/2014 White Blood Count 8.1 10^3/uL 4.8-10.8 50 Red Blood Count 4.14 10^6/uL 4.0-5.4 50 Hemoglobin 11.3 g/dL Low 12.0-16.0 50 Hematocrit 34 % Low 35-47 50 Mean Corpuscular Volume 82 fL 80-97 50 Mean Corpuscular Hemoglobin 27 pg 27-31 50 Mean Corpuscular HGB Conc 33 g/dL 31-36 50 Red Cell Distribution Width 16 % High 10.5-15 50 Platelet Count 333 10^3/uL 150-450 50 Mean Platelet Volume 8 um3 7.4-10.4 50 Abs Neutrophils 5.4 10^3/uL 1.5-7.7 50 Abs Lymphocytes 2.0 10^3/uL 1.0-4.8 50 Abs Monocytes 0.5 10^3/uL 0-0.8 50 Abs Eosinophils 0.1 10^3/uL 0-0.6 50 Abs Basophils 0.1 10^3/uL 0-0.2 50 Abs Nucleated RBC 0.01 10^3/uL 50 Granulocyte % 66.2 % 38-83 50 Lymphocyte % 25.1 % 25-47 50 Monocyte % 6.4 % 1-9 50 Eosinophil % 1.6 % 0-6 50 Basophil % 0.7 % 0-2 50 Nucleated Red Blood Cells % 0.1 50 Lipid Panel - JFM 08/10/2014 Creatine Kinase 76 U/L 10-223 50, 60 Comp Metabolic Panel 08/10/2014 Sodium 137 mmol/L 133-145 50 Potassium 4.2 mmol/L 3.7-5.6 50 Chloride 105 mmol/L 101-111 50 Co2 Carbon Dioxide 25 mmol/L 22-32 50 Anion Gap 7 mmol/L 2-11 50 Glucose 92 mg/dL 70-100 50 Blood Urea Nitrogen 11 mg/dL 6-24 50 Creatinine 0.80 mg/dL 0.51-0.95 50 BUN/Creatinine Ratio 13.8 8-20 50 Calcium 9.4 mg/dL 8.6-10.3 50 Total Protein 7.0 g/dL 6.4-8.9 50 Albumin 4.3 g/dL 3.2-5.2 50 Globulin 2.7 g/dL 2-4 50 Albumin/Globulin Ratio 1.6 1-3 50 Total Bilirubin 0.60 mg/dL 0.2-1.0 50 Alkaline Phosphatase 87 U/L 34-104 50 Alt 11 U/L 7-52 50 Ast 16 U/L 13-39 50 Egfr Non- 83.1 >60 50 Egfr 106.9 >60 50, 61 Comp Metabolic Panel 01/10/2014 Sodium 139 mmol/L 133-145 Potassium 3.9 mmol/L 3.7-5.6 Chloride 107 mmol/L 101-111 Co2 Carbon Dioxide 25 mmol/L 22-32 Anion Gap 7 mmol/L 2-11 Glucose 113 mg/dL High 70-100 Blood Urea Nitrogen 8 mg/dL 6-24 Creatinine 0.76 mg/dL 0.51-0.95 BUN/Creatinine Ratio 10.5 8-20 Calcium 9.8 mg/dL 8.6-10.3 Total Protein 7.2 g/dL 6.4-8.9 Albumin 4.5 g/dL 3.2-5.2 Globulin 2.7 g/dL 2-4 Albumin/Globulin Ratio 1.7 1-3 Total Bilirubin 0.40 mg/dL 0.2-1.0 Alkaline Phosphatase 59 U/L 34-104 Alt 11 U/L 7-52 Ast 13 U/L 13-39 Egfr Non- 88.2 >60 Egfr 113.4 >60 62 CBC Auto Diff 01/10/2014 White Blood Count 8.7 10^3/uL 4.8-10.8 Red Blood Count 4.28 10^6/uL 4.0-5.4 Hemoglobin 11.7 g/dL Low 12.0-16.0 Hematocrit 37 % 35-47 Mean Corpuscular Volume 86 fL 80-97 Mean Corpuscular Hemoglobin 28 pg 27-31 Mean Corpuscular HGB Conc 32 g/dL 31-36 Red Cell Distribution Width 16 % High 10.5-15 Platelet Count 335 10^3/uL 150-450 Mean Platelet Volume 9 um3 7.4-10.4 Abs Neutrophils 6.2 10^3/uL 1.5-7.7 Abs Lymphocytes 1.9 10^3/uL 1.0-4.8 Abs Monocytes 0.5 10^3/uL 0-0.8 Abs Eosinophils 0.1 10^3/uL 0-0.6 Abs Basophils 0.1 10^3/uL 0-0.2 Abs Nucleated RBC 0 10^3/uL Granulocyte % 71.1 % 38-83 Lymphocyte % 21.6 % Low 25-47 Monocyte % 5.4 % 1-9 Eosinophil % 1.2 % 0-6 Basophil % 0.7 % 0-2 Nucleated Red Blood Cells % 0 Laboratory test finding 10/28/2013 Lamotrigine 8.4 g/mL 2.5 - 15.0 63 Laboratory test finding 09/01/2013 Lamotrigine 7.6 g/mL 2.5 - 15.0 64 Laboratory test finding 05/29/2013 Lamotrigine 10.9 g/mL 2.5 - 15.0 65 Urine Culture And 05/28/2013 Urine Culture (SEE NOTE) 66 Sensitivities Laboratory test finding 12/15/2012 Lamotrigine 5.2 g/mL 2.5 - 15.0 67 Laboratory test finding 10/22/2012 Serum Negative Negative 68 Urine Culture And 10/22/2012 Urine Culture (SEE NOTE) 69 Sensitivities Throat-Beta Strept 09/25/2012 Throat Beta Strep (SEE NOTE) 70 Culture Laboratory test finding 09/03/2012 Lamotrigine 3.9 g/mL 2.5 - 15.0 71 Comp Metabolic Panel 07/14/2012 Sodium 138 mmol/L 135-145 Potassium 4.3 mmol/L 3.5-5.0 Chloride 106 mmol/L 101-111 Co2 (Carbon Dioxide) 28.0 mmol/L 22-32 Anion Gap 4.0 mmol/L 2-11 72 Glucose 93 mg/dL 70-100 BUN 10 mg/dL 6-24 Creatinine 0.8 mg/dL 0.50-1.40 One Over Creatinine 1.25 BUN/Creatinine Ratio 12.5 8-20 Calcium 9.4 mg/dL 8.1-9.9 Total Protein 6.8 GM/DL 6.2-8.1 Albumin 3.9 GM/DL 3.6-5.4 Globulin 2.9 GM/DL 2-4 Albumin/Globulin Ratio 1.3 1-3 Bilirubin Total 0.5 mg/dL 0.4-1.5 73 Alkaline Phosphatase 59 U/L 30-110 Alt (SGPT) 16 U/L 14-54 Ast (Sgot) 19 U/L 12-42 eGFR Non- 84.2 > 60 eGFR 108.3 > 60 74 CBC No Diff 07/14/2012 White Blood Count 8.2 CUMM 4.8-10.8 Red Cell Count 3.83 CUMM Low 4.2-5.4 Hemoglobin 12.3 g/dL 12.0-16.0 Hematocrit 37 % 35-47 Mean Corpuscular Volume 96 um3 79-97 Mean Corpuscular Hemoglob 32 pg High 27-31 Mean Corpuscular HGB Cone 34 g/dL 32-36 Redcell Distribution WDTH 15 % 10.5-15 Platelet Count 312 CUMM 150-450 Mean Platelet Volume 8.6 um3 7.4-10.4 Laboratory test finding 07/14/2012 Lamotrigine 3.8 g/mL 2.5 - 15.0 75 1 Therapeutic target for the treatment of diabetes Mellitus patients is <7% HBA1C, and in selective patients <6.0%.Please refer to [employer] Diabetic care guidelines for further information. 2 Because ethnic data is not always readily available, this report includes an eGFR for both -Americans and non- Americans. The National Kidney Disease Education Program (NKDEP) does not endorse the use of the MDRD equation for patients that are not between the ages of 18 and 70, are , have extremes of body size, muscle mass, or nutritional status, or are non- or non-. According to the National Kidney Foundation, irrespective of diagnosis, the stage of the disease is based on the level of kidney function: Stage Description GFR(mL/min/1.73 m(2)) 1 Kidney damage with normal or decreased GFR 90 2 Kidney damage with mild decrease in GFR 60-89 3 Moderate decrease in GFR 30-59 4 Severe decrease in GFR 15-29 5 Kidney failure <15 (or dialysis) 3 SEE RESULT BELOW Name: DEAN PENG Lee : [address]: Tanvir Vizcarra MD Acct: [id number] Unit: [id number] AGE: 36 Location: [facility] Re06/18/17 SEX: F Status: REG REF SPEC: [id number] DEBBIE: 06/18/17-[address]: Tanvir Vizcarra MD REQ: [id number] RECD: 06/18/17 STATUS: COMP _ SOURCE: URINE SPDESC: ORDERED: Urine Culture COMMENTS: [id number] Urine Source: Random Procedure Result Reported Site Urine Culture Final 06/19/17- 1623 ML No growth of clinically significant organisms * ML - MAIN LAB ([facility]) . END OF REPORT * ML=Testing performed at Main Lab DEPARTMENT OF PATHOLOGY, [address] [place] [address] Ty Guo M.D. Director [facility] # [id number] 4 ADDITIONAL INFORMATION The thyroglobulin antibody testing method is an immunoenzymatic assay manufactured by [employer] and performed on the [employer] DXI 800. Values obtained from different assay methods or kits may be different and cannot be used interchangeably. The results cannot be interpreted as absolute evidence for the presence or absence of malignant disease. Test Performed by: [address] [address] 5 Border Patrol Agent: [id number] 6 SEE RESULT BELOW Name: DEAN PENG : [address]: Vance Garnett DO Acct: [id number] Unit: [id number] AGE: 36 Location: ED Re04/04/17 SEX: F Status: DEP ER SPEC: [id number] DEBBIE: 04/04/17-1245 [facility] DR: Vance Garnett DO REQ: [id number] RECD: 04/04/17 STATUS: TOMASA COCHRAN DR: [facility] Baldev Bonner MD _ SOURCE: URINE SPDESC: ORDERED: Urine Culture Procedure Result Reported Site Urine Culture Final 04/06/17919 ML No growth of clinically significant organisms * ML - MAIN LAB ([facility]) . END OF REPORT * ML=Testing performed at Main Lab DEPARTMENT OF PATHOLOGY, [address] [place] [address] Ty Guo M.D. Director [facility] # [id number] 7 [facility] Severe Sepsis and Septic Shock Management Bundle Measure requires all lactic acids initially measuring >2.0 mmol/L be repeated. 8 SEE RESULT BELOW Name: DEAN PENG : [address]: [facility] Acct: [id number] Unit: [id number] AGE: 36 Location: ED Re04/04/17 SEX: F Status: REG ER SPEC: [id number] DEBBIE: 04/04/17 [facility] DR: Vance Garnett DO REQ: [id number] RECD: 04/04/17 STATUS: TOMASA COCHRAN DR: [facility] Baldev Bonner MD _ SOURCE: THROAT SPDESC: ORDERED: Strep A Request Procedure Result Reported Site Rapid Strep A Request Final 04/04/17- 1047 ML Specimen received for Rapid Strep A Molecular testing * ML - MAIN LAB ([facility]) . END OF REPORT * ML=Testing performed at Main Lab DEPARTMENT OF PATHOLOGY, [address] [place] [address] Ty Guo M.D. Director [facility] # [id number] 9 99th percentile=0.04 ng/mL Troponin results at [facility] and [facility] are not interchangeable. 10 Because ethnic data is not always readily available, this report includes an eGFR for both -Americans and non- Americans. The National Kidney Disease Education Program (NKDEP) does not endorse the use of the MDRD equation for patients that are not between the ages of 18 and 70, are , have extremes of body size, muscle mass, or nutritional status, or are non- or non-. According to the National Kidney Foundation, irrespective of diagnosis, the stage of the disease is based on the level of kidney function: Stage Description GFR(mL/min/1.73 m(2)) 1 Kidney damage with normal or decreased GFR 90 2 Kidney damage with mild decrease in GFR 60-89 3 Moderate decrease in GFR 30-59 4 Severe decrease in GFR 15-29 5 Kidney failure <15 (or dialysis) 11 ADDITIONAL INFORMATION This test was developed and its performance characteristics determined by [facility] in a manner consistent with CLIA requirements. This test has not been cleared or approved by the U.S. Food and Drug Administration. Test Performed by: [facility] [place] [address] Keyboard Instrument Tuner: Kenrick Hightower II, M.D., Ph.D. 12 REFERENCE VALUE Reference values depend on clinical use: Anticonvulsant: 5.0-20.0 mcg/mL Psychiatric: 2.0-8.0 mcg/mL ADDITIONAL INFORMATION This test was developed and its performance characteristics determined by [facility] in a manner consistent with CLIA requirements. This test has not been cleared or approved by the U.S. Food and Drug Administration. Test Performed by: [facility] [place] [address] Keyboard Instrument Tuner: Kenrick Hightower II, M.D., Ph.D. 13 Because ethnic data is not always readily available, this report includes an eGFR for both -Americans and non- Americans. The National Kidney Disease Education Program (NKDEP) does not endorse the use of the MDRD equation for patients that are not between the ages of 18 and 70, are , have extremes of body size, muscle mass, or nutritional status, or are non- or non-. According to the National Kidney Foundation, irrespective of diagnosis, the stage of the disease is based on the level of kidney function: Stage Description GFR(mL/min/1.73 m(2)) 1 Kidney damage with normal or decreased GFR 90 2 Kidney damage with mild decrease in GFR 60-89 3 Moderate decrease in GFR 30-59 4 Severe decrease in GFR 15-29 5 Kidney failure <15 (or dialysis) 14 <5.0 Negative 5.0 - 25.0 Indeterminate (Repeat testing recommended after 72 hours) >25.0 Positive Perimenopausal women can display HCG levels of up to 20 mIU/mL 15 >100 to <200 pg/mL: likely compensated congestive heart failure (CHF) 200 to 400 pg/mL: likely moderate CHF >400 pg/mL: likely moderate to severe CHF 16 Test Performed by: [place] [address] Keyboard Instrument Tuner: Kenrick Hightower II, M.D., Ph.D. 17 [facility] Severe Sepsis and Septic Shock Management Bundle Measure requires all lactic acids initially measuring >2.0 mmol/L be repeated. 18 Acute inflammation: >10.00 19 Reference Range and Interpretation: TnI (ng/mL) Interpretation Less Than 0.03 ng/mL Not supportive of diagnosis of AR 0.03 - 0.50 ng/mL Indeterminate: suggest serial studies if clinically indicated. Greater than 0.5 ng/mL Consistent with diagnosis of AR 20 Because ethnic data is not always readily available, this report includes an eGFR for both -Americans and non- Americans. The National Kidney Disease Education Program (NKDEP) does not endorse the use of the MDRD equation for patients that are not between the ages of 18 and 70, are , have extremes of body size, muscle mass, or nutritional status, or are non- or non-. According to the National Kidney Foundation, irrespective of diagnosis, the stage of the disease is based on the level of kidney function: Stage Description GFR(mL/min/1.73 m(2)) 1 Kidney damage with normal or decreased GFR 90 2 Kidney damage with mild decrease in GFR 60-89 3 Moderate decrease in GFR 30-59 4 Severe decrease in GFR 15-29 5 Kidney failure <15 (or dialysis) 21 Because ethnic data is not always readily available, this report includes an eGFR for both -Americans and non- Americans. The National Kidney Disease Education Program (NKDEP) does not endorse the use of the MDRD equation for patients that are not between the ages of 18 and 70, are , have extremes of body size, muscle mass, or nutritional status, or are non- or non-. According to the National Kidney Foundation, irrespective of diagnosis, the stage of the disease is based on the level of kidney function: Stage Description GFR(mL/min/1.73 m(2)) 1 Kidney damage with normal or decreased GFR 90 2 Kidney damage with mild decrease in GFR 60-89 3 Moderate decrease in GFR 30-59 4 Severe decrease in GFR 15-29 5 Kidney failure <15 (or dialysis) 22 FASTING 10 HOUR 23 FASTING 10 HOUR 24 Desirable <150 Borderline high 150-199 High 200-499 Very High >500 25 Desirable <200 Borderline high 200-239 High >239 26 Low <40 Desirable: 40-60 High: >60 27 Desirable: <100 mg/dL Near Optimal: 100-129 mg/dL Borderline High: 130-159 mg/dL High: 160-189 mg/dL Very High: >189 mg/dL 28 FASTING 10 HOUR 29 SEE RESULT BELOW Name: DEAN PENG : [address]: Jeremiah Zendejas HAND EDGER Acct: [id number] Unit: [id number] AGE: 35 Location: [facility] Re12/20/15 SEX: F Status: REG REF SPEC: [id number] DEBBIE: 12/20/15-[address]: Jeremiah Zendejas HAND EDGER REQ: [id number] RECD: 12/20/15 STATUS: SOUT _ ORDERED: IMAGE ANALYSIS, HPV/Thin Prep, HPV 16/18 GENE FINAL DIAGNOSIS Negative for Intraepithelial lesion or Malignancy COMMENTS: Vial reprocessed due to excess blood and scant cellularity on first slide. Reprocessing successful. A. Ectocervical/Endocervical Specimen Adequacy: Satisfactory of evaluation Transformation zone component identified Patient Information: HPV: High risk HPV RNA testing regardless of pap results. Actual Specimen Date: 12/20/15 Last Menstrual Date: 12/07/15 Spec Date if unknown: unknown ?: N Post Menopausal?: N Hysterectomy?: N Previous Abnormal Pap Smears?:Y If Yes, enter Diagnosis: unknown Date Time Test Result Flag (u) Normal Range 12/20/15 1542 HPV RNA RFLX GE Negative Negative The high-risk HPV types detected by the assay include: 16, 18, 31, 33, 35, 39, 45, 51, 52, 56, 58, 59, 66, and 68. Signed (signature on file) LINH Smith(ASCP) 12/22 1032 This Pap test was evaluated with the assistance of the [employer] Test Imaging System. Due to cytologic findings at the cryptoanalysis teacher microscope, comprehensive manual rescreening by a Eyewear Manufacturing Tech may be required. The Pap Smear is a screening test designed to aid in the detection of premalignant and malignant conditions of the uterine cervix. It is not a diagnostic procedure and should not be used as the sole means of detecting cervical cancer. Both false- positive and false- negative reports do occur. Depending on your risk status, a Pap smear should be obtained and evaluated every 1-3 years. RUN DATE: 12/22/15 [facility] LAB LIVE PAGE 1 Patient: DEAN PENG [id number] (Continued) CONTINUED ON NEXT PAGE * ML=Testing performed at Main Lab DEPARTMENT OF PATHOLOGY, [address] [place] [address] Ty Guo M.D. Director [facility] # [id number] 30 The high-risk HPV types detected by the assay include: 16, 18, 31, 33, 35, 39, 45, 51, 52, 56, 58, 59, 66, and 68. 31 SEE RESULT BELOW Name: DEAN PENG : [address]: Jeremiah Zendejas HAND EDGER Acct: [id number] Unit: [id number] AGE: 34 Location: LAB Re08/14/15 SEX: F Status: REG REF SPEC: [id number] DEBBIE: 08/14/15-[address]: Jeremiah Zendejas NP REQ: [id number] RECD: 08/14/15 STATUS: COMP _ SOURCE: URINE SPDESC: ORDERED: Urine Culture Procedure Result Verified Site Urine Culture Final 08/16/15- 1127 ML Organism 1 NORMAL JUDE Elliott Count 25-50,000 (Moderate) CFU/ML * ML - [facility] ([facility]) . END OF REPORT * ML=Testing performed at [facility] DEPARTMENT OF PATHOLOGY, [address] [place] [address] Ty Guo M.D. Director [facility] # [id number] 32 Comment: f 33 Test Performed by: [place] [address] Keyboard Instrument Tuner: Kenrick Hightower II, M.D., Ph.D. 34 SEE RESULT BELOW Name: DEAN PENG : [address]: Justin Tom MD Acct: [id number] Unit: [id number] AGE: 34 Location: ED Re06/11/15 SEX: F Status: DEP ER SPEC: [id number] DEBBIE: 06/11/15-[address]: Justin Tom MD REQ: [id number] RECD: 06/11/15 STATUS: TOMASA COCHRAN DR: [facility] Jeremiah Zendejas HAND EDGER _ SOURCE: URINE [facility]: ORDERED: Urine Culture Procedure Result Verified Site Urine Culture Final 06/14/15- 938 ML Organism 1 NORMAL JUDE Elliott Count >100,000 (Many) CFU/ML * ML - MAIN LAB ([facility]) . END OF REPORT * ML=Testing performed at Main Lab DEPARTMENT OF PATHOLOGY, [address] [place] [address] Ty Guo M.D. Director [facility] # [id number] 35 Presumptive Positive 36 The urine specimen was tested at the listed cutoffs: Drug class test level (ng/mL) Amphetamines 500 Barbituates 200 Benzodiazepine metabolites 200 Cocaine metabolites 150 Cannabinoids 50 Opiates 300 Pcp 25 This is a screening procedure. Positive results are not confirmed. Specimen was received without chain of custody. Results should be used for medical purposes only. 37 SEE RESULT BELOW Name: DEAN PENG Lee : [address]: Jeremiah Zendejas NP Acct: [id number] Unit: [id number] AGE: 34 Location: [facility] Re05/16/15 SEX: F Status: REG REF SPEC: [id number] DEBBIE: 05/16/15-[address]: Jeremiah Zendejas NP REQ: [id number] RECD: 05/16/15 STATUS: COMP _ SOURCE: THROAT SPDESC: ORDERED: Throat Culture Procedure Result Verified Site Throat Culture Final 05/18/15- 0752 ML Organism 1 NORMAL JUDE Quantity 2+ Throat cultures are clinically indicated to detect the presence of group A strep, arcanobacterium and yeast. In certain cases, predominating organisms will be reported. * ML - MAIN LAB ([facility]) . END OF REPORT * ML=Testing performed at Main Lab DEPARTMENT OF PATHOLOGY, [address] [place] [address] Ty Guo M.D. Director [facility] # [id number] 38 N 39 Because ethnic data is not always readily available, this report includes an eGFR for both -Americans and non- Americans. The National Kidney Disease Education Program (NKDEP) does not endorse the use of the MDRD equation for patients that are not between the ages of 18 and 70, are , have extremes of body size, muscle mass, or nutritional status, or are non- or non-. According to the National Kidney Foundation, irrespective of diagnosis, the stage of the disease is based on the level of kidney function: Stage Description GFR(mL/min/1.73 m(2)) 1 Kidney damage with normal or decreased GFR 90 2 Kidney damage with mild decrease in GFR 60-89 3 Moderate decrease in GFR 30-59 4 Severe decrease in GFR 15-29 5 Kidney failure <15 (or dialysis) 40 Because ethnic data is not always readily available, this report includes an eGFR for both -Americans and non- Americans. The National Kidney Disease Education Program (NKDEP) does not endorse the use of the MDRD equation for patients that are not between the ages of 18 and 70, are , have extremes of body size, muscle mass, or nutritional status, or are non- or non-. According to the National Kidney Foundation, irrespective of diagnosis, the stage of the disease is based on the level of kidney function: Stage Description GFR(mL/min/1.73 m(2)) 1 Kidney damage with normal or decreased GFR 90 2 Kidney damage with mild decrease in GFR 60-89 3 Moderate decrease in GFR 30-59 4 Severe decrease in GFR 15-29 5 Kidney failure <15 (or dialysis) 41 Test Performed by: [place] [address] Keyboard Instrument Tuner: Kenrick Hightower II, M.D., Ph.D. 42 RUN DATE: 02/19/15 [facility] LAB LIVE PAGE 1 RUN TIME: [address] [place] [id number] Specimen Inquiry Name: DEAN PENG : [address]: Srinivas Boston MD Acct: [id number] Unit: [id number] AGE: 34 Location: ED Re02/16/15 SEX: F Status: DEP ER SPEC: [id number] DEBBIE: 02/16/[address]: Hernando House DO REQ: [id number] RECD: 02/16/15 STATUS: COMP OTHR DR: [facility] Marito Turpin III, MD _ SOURCE: URINE SPDESC: ORDERED: Urine Culture Procedure Result Verified Site Urine Culture Final 02/19/15- 0834 ML Organism 1 ESCHERICHIA COLI Elliott Count 25-50,000 (Moderate) CFU/ML Organism 2 NORMAL JUDE Elliott Count 25-50,000 (Moderate) CFU/ML 1. ESCHERICHIA COLI M.I.C. RX --------- ------ Ampicillin 16 I Cefazolin <=4 S Cefepime <=1 S Ceftriaxone <=1 S Ciprofloxacin <=0.25 S Gentamicin <=1 S Levofloxacin <=0.12 S Meropenem <=0.25 S Nitrofurantoin 32 S Tetracycline 2 S Pipercillin/Tazobactam <=4 S Trimethoprim/Sulfamethoxazole <=20 S Amoxicillin/Clavulanic Acid 4 S Aztreonam <=1 S Contact the Microbiology Department for any additional antibiotic reporting. * ML - MAIN LAB ([facility]) . END OF REPORT * ML=Testing performed at Main Lab DEPARTMENT OF PATHOLOGY, [address] [place] [address] Ty Guo M.D. Director [facility] # [id number] 43 Because ethnic data is not always readily available, this report includes an eGFR for both -Americans and non- Americans. The National Kidney Disease Education Program (NKDEP) does not endorse the use of the MDRD equation for patients that are not between the ages of 18 and 70, are , have extremes of body size, muscle mass, or nutritional status, or are non- or non-. According to the National Kidney Foundation, irrespective of diagnosis, the stage of the disease is based on the level of kidney function: Stage Description GFR(mL/min/1.73 m(2)) 1 Kidney damage with normal or decreased GFR 90 2 Kidney damage with mild decrease in GFR 60-89 3 Moderate decrease in GFR 30-59 4 Severe decrease in GFR 15-29 5 Kidney failure <15 (or dialysis) 44 RUN DATE: 02/02/15 [facility] LAB LIVE PAGE 1 RUN TIME: [address] [place] [address] Specimen Inquiry Name: DEAN PENG : [address]: Jeremiah Zendejas NP Acct: [id number] Unit: [id number] AGE: 34 Location: [facility] Re01/26/15 SEX: F Status: REG REF SPEC: DEBBIE: 01/26/15 [facility] DR: Tanvir Vizcarra MD REQ: [id number] RECD: 01/26/15 STATUS: SHAUN COCHRAN DR: Jeremiah Zendejas HAND EDGER _ ORDERED: GOM METH STN, PASS STAIN, LEVEL IV FINAL DIAGNOSIS Skin, site unspecified, biopsy: -- Dermal hypersensitivity reaction; see comment. COMMENT: The findings are favored to represent a hypersensitivity reaction to a medication or other internal antigen. Fungal stains are pending and the results will be reported in an addendum. PRE-OPERATIVE DIAGNOSIS 698.9 pruritic disorder unspecified GROSS DESCRIPTION The specimen is received in formalin labeled, Skin, and consists of a 0.3 cm solis hairbearing circular skin punch excised to a depth of 0.3 cm, which is submitted entirely in one cassette. MICROSCOPIC DESCRIPTION Histologic sections show a punch biopsy of skin excised to include subcutaneous tissue. Basket weave orthokeratosis is present overlying epidermis without significant spongiosis or interface reaction. In the superficial to deep dermis a perivascular and periadnexal inflammatory infiltrate is present composed of lymphocytes. Deeper levels of sectioning show occasional eosinophils in the dermal infiltrate. Signed (signature on file) Griselda Garsia MD 0928 END OF REPORT * ML=Testing performed at Main Lab DEPARTMENT OF PATHOLOGY, [address] [place] [address] Ty Guo M.D. Director [facility] # [id number] RUN DATE: 02/02/15 [facility] LAB LIVE PAGE 1 RUN TIME: 1026 [address] [place], [place] [address] Specimen Inquiry Name: DEAN PENG Lee : [address]: Jeremiah Zendejas HAND EDGER Acct: [id number] Unit: [id number] AGE: 34 Location: [facility] Re01/26/15 SEX: F Status: REG REF SPEC: [id number] DEBBIE: 01/26/[address]: Tanvir Vizcarra MD REQ: [id number] RECD: 01/26/15 STATUS: SHAUN COCHRAN DR: Jeremiah Zendejas HAND EDGER _ ORDERED: GOM METH STN, PASS STAIN, LEVEL IV GMS and PAS stains, with appropriately reacting controls, are negative for fungal organisms. Addendum Signed (signature on file) Griselda Garsia MD 1026 FINAL DIAGNOSIS Skin, site unspecified, biopsy: -- Dermal hypersensitivity reaction; see comment. COMMENT: The findings are favored to represent a hypersensitivity reaction to a medication or other internal antigen. Fungal stains are pending and the results will be reported in an addendum. PRE-OPERATIVE DIAGNOSIS 698.9 pruritic disorder unspecified GROSS DESCRIPTION The specimen is received in formalin labeled, Skin, and consists of a 0.3 cm solis hairbearing circular skin punch excised to a depth of 0.3 cm, which is submitted entirely in one cassette. MICROSCOPIC DESCRIPTION Histologic sections show a punch biopsy of skin excised to include subcutaneous tissue. Basket weave orthokeratosis is present overlying epidermis without significant spongiosis or interface reaction. In the superficial to deep dermis a perivascular and periadnexal inflammatory infiltrate is present composed of lymphocytes. Deeper levels of sectioning show occasional eosinophils in the dermal infiltrate. CONTINUED ON NEXT PAGE * ML=Testing performed at Main Lab DEPARTMENT OF PATHOLOGY, [facility] [employer] [place] [address] Ty Guo M.D. Director [facility] # [id number] RUN DATE: 02/02/15 [facility] LAB LIVE PAGE 2 RUN TIME: [address] [place] [address] Specimen Inquiry Patient: DEAN PENG Lee [id number] (Continued) MICROSCOPIC DESCRIPTION (Continued) Signed (signature on file) Griselda Garsia MD 0928 END OF REPORT * ML=Testing performed at [facility] DEPARTMENT OF PATHOLOGY, [address] [place] [address] Ty Guo M.D. Director [facility] # [id number] 46 Test Performed by: [place] [address] Keyboard Instrument Tuner: Kenrick Hightower II, M.D., Ph.D. 47 Test Performed by: [place] [address] Keyboard Instrument Tuner: Kurt Hinton M.D. 48 Test Performed by: [place] [address] Keyboard Instrument Tuner: Kurt Hinton M.D. 49 Interpretation: 51-80 ng/mL (increased risk of hypercalciuria) REFERENCE VALUE 25-HYDROXY D TOTAL (D2+D3) Optimum levels in the healthy population are 20-50, patients with bone disease may benefit from higher levels within this range. Test Performed by: [place] [address] Keyboard Instrument Tuner: Kurt Hinton M.D. 50 FASTING 10 HOUR 51 Desirable <150 Borderline high 150-199 High 200-499 Very High >500 52 Desirable <200 Borderline high 200-239 High >239 53 Low <40 Desirable: 40-60 High: >60 54 Desirable <100 Near Optimal 100-129 Borderline high 130-159 High 160-189 Very High >189 55 REFERENCE VALUE 25-HYDROXY D TOTAL (D2+D3) Optimum levels in the healthy population are 20-50, patients with bone disease may benefit from higher levels within this range. Test Performed by: [facility] [address] [address] Keyboard Instrument Tuner: Kurt Hinton M.D. 56 FASTING 10 HOUR 57 Normal Range 180 to 914 Indeterminate Range 145 to 180 Deficient Range <145 58 FASTING 10 HOUR 59 FASTING 10 HOUR 60 FASTING 10 HOUR 61 Because ethnic data is not always readily available, this report includes an eGFR for both -Americans and non- Americans. The National Kidney Disease Education Program (NKDEP) does not endorse the use of the MDRD equation for patients that are not between the ages of 18 and 70, are , have extremes of body size, muscle mass, or nutritional status, or are non- or non-. According to the National Kidney Foundation, irrespective of diagnosis, the stage of the disease is based on the level of kidney function: Stage Description GFR(mL/min/1.73 m(2)) 1 Kidney damage with normal or decreased GFR 90 2 Kidney damage with mild decrease in GFR 60-89 3 Moderate decrease in GFR 30-59 4 Severe decrease in GFR 15-29 5 Kidney failure <15 (or dialysis) 62 Because ethnic data is not always readily available, this report includes an eGFR for both -Americans and non- Americans. The National Kidney Disease Education Program (NKDEP) does not endorse the use of the MDRD equation for patients that are not between the ages of 18 and 70, are , have extremes of body size, muscle mass, or nutritional status, or are non- or non-. According to the National Kidney Foundation, irrespective of diagnosis, the stage of the disease is based on the level of kidney function: Stage Description GFR(mL/min/1.73 m(2)) 1 Kidney damage with normal or decreased GFR 90 2 Kidney damage with mild decrease in GFR 60-89 3 Moderate decrease in GFR 30-59 4 Severe decrease in GFR 15-29 5 Kidney failure <15 (or dialysis) 63 Test Performed by: [facility] [address] [place] [address] Keyboard Instrument Tuner: Luis Altamirano III, M.D. 64 Test Performed by: [facility] [address] [place] [address] Keyboard Instrument Tuner: Luis Altamirano III, M.D. 65 Test Performed by: [facility] [address] [place] [address] Keyboard Instrument Tuner: Luis Altamirano III, M.D. 66 RUN DATE: 05/30/13 [facility] LAB LIVE PAGE 1 RUN TIME: [address] [place] [address] Specimen Inquiry Name: DEAN KEYES : [address]: Momo Diaz MD Acct: [id number] Unit: [id number] AGE: 32 Location: [facility] Re05/28/13 SEX: F Status: DEP ER SPEC: [id number] DEBBIE: 05/28/13-0805 [facility] DR: Momo Diaz MD REQ: [id number] RECD: 05/28/13 STATUS: TOMASA MARTIN DR: Tanvir Vizcarra MD _ SOURCE: URINE [facility]: ORDERED: Urine Culture QUERIES: Medent Number [id number] Procedure Result Verified Site Urine Culture Final 05/30/13- 1112 ML Organism 1 NORMAL JUDE Elliott Count 25-50,000 (Moderate) CFU/ML END OF REPORT * ML=Testing performed at Main Lab DEPARTMENT OF PATHOLOGY, [facility] [place], [place] [address] Ty Guo M.D. Director [facility] Permit #[id number] 67 Test Performed by: [address] [address] Keyboard Instrument Tuner: Luis Altamirano III, M.D. 68 This test detects intact HCG only and is indicated for the early detection of . 69 RUN DATE: 10/24/12 [facility] LAB LIVE PAGE 1 RUN TIME: 928 [facility] [employer] [place], [place] [address] Specimen Inquiry Name: DEAN KEYES : [address]: Lynette Olivier MD OsmanBryant Acct: [id number] Unit: [id number] AGE: 32 Location: [facility] Re10/22/12 SEX: F Status: DEP ER SPEC: [id number] DEBBIE: 10/22/12 [facility] DR: Lynette Olivier MD Ryan REQ: [id number] RECD: 10/22/12 STATUS: TOMASA COCHRAN DR: GISSELL Carlin MD,Yudi Yadav MD,Clinton Blanco _ SOURCE: URINE SPDESC: ORDERED: Urine Culture Procedure Result Verified Site Urine Culture Final 10/24/12- 0928 ML Organism 1 STREP GROUP B Elliott Count 25-50,000 (Moderate) CFU/ML Organism 2 NORMAL JUDE Elliott Count 75-100,000 (Many) CFU/ML Susceptibility testing of penicillins and other B-lactams approved by FDA for treatment of Streptococcus pyogenes (Group A Strep) and Streptococcus agalactiae (Group B Strep) is not necessary for clinical purposes and need not be done routinely, since as with vancomycin, resistant strains have not been recognized. (CLSI V676-E98;p.66) Positive isolates will be saved for one week. Please call the Microbiology Laboratory if further susceptibility testing is needed. END OF REPORT * ML=Testing performed at Main Lab DEPARTMENT OF PATHOLOGY, [facility] [place] [address] Ty Guo M.D. Director [facility] Permit #[id number] 70 RUN DATE: 09/27/12 [facility] LAB LIVE PAGE 1 RUN TIME: 08 [facility] [employer] [place], [place] [address] Specimen Inquiry Name: DEAN KEYES : [address]: Lucas Arce MD Acct: [id number] Unit: [id number] AGE: 31 Location: [facility] Re09/25/12 SEX: F Status: DEP ER SPEC: [id number] DEBBIE: 09/25/12-1751 [facility] DR: Yazmin BAINS,Lucas REQ: [id number] RECD: 09/25/12 STATUS: TOMASA COCHRAN DR: GISSELL Carlin MD,Yudi _ SOURCE: THROAT SPDESC: ORDERED: Throat Beta Str Procedure Result Verified Site Throat Beta Strep Culture Final 09/27/12- 08 ML Negative For Group A Beta Streptococcus END OF REPORT * ML=Testing performed at Main Lab DEPARTMENT OF PATHOLOGY, [address] [place] [address] Ty Guo M.D. Director [facility] Permit #[id number] 71 Test Performed by: [address] [address] Keyboard Instrument Tuner: Luis Altamirano III, M.D. R 72 Anion gap measurement may be of limited value in the presence of any alkalosis, especially in a combined acid base disorder. . 73 A metabolite of Naproxen, O-desmethylnaproxen, has been shown to interfere with the Jendrassik-Prompton method for measuring total bilirubin. Samples from patients who have taken Naproxen have shown spurious elevation in total bilirubin levels. 74 Because ethnic data is not always readily available, this report includes an eGFR for both -Americans and non- Americans. The National Kidney Disease Education Program (NKDEP) does not endorse the use of the MDRD equation for patients that are not between the ages of 18 and 70, are , have extremes of body size, muscle mass, or nutritional status, or are non- or non-. According to the National Kidney Foundation, irrespective of diagnosis, the stage of the disease is based on the level of kidney function: Stage Description GFR(mL/min/1.73 m(2)) 1 Kidney damage with normal or decreased GFR 90 2 Kidney damage with mild decrease in GFR 60-89 3 Moderate decrease in GFR 30-59 4 Severe decrease in GFR 15-29 5 Kidney failure <15 (or dialysis) 75 Test Performed by: [address] [address] Keyboard Instrument Tuner: Luis Altamirano III, M.D. Procedures Date CPT Code Description Status 08/20/2017 03665 Polysomnography Sleep Staging 4+ Parameters Completed 07/03/2016 56003 EEG Monitoring & Video Recording Completed 07/02/2016 81399 EEG Monitoring & Video Recording Completed 07/01/2016 97281 EEG Monitoring & Video Recording Completed 06/30/2016 31234 EEG Monitoring & Video Recording Completed 06/29/2016 54679 EEG Monitoring & Video Recording Completed 06/28/2016 15105 EEG Monitoring & Video Recording Completed 01/15/2016 64960 Pulmonary Function><Bronchodil Completed 12/21/2015 29650 EKG Tracing & Interpretation Completed 12/20/2015 94394 EKG Tracing & Interpretation Completed 01/26/2015 60389 Biopsy Skin Lesion Single Completed 12/28/2014 42827 EEG Recording Awake & Asleep Completed 01/15/2013 16202 ECHO Stress Test Incl Perf Contiuous ekg Monitoring Completed W/Phys Superv 12/15/2012 15508 Cardiac Event Monitor Completed 12/11/2012 03390 ECHO Transthoracic, Real-Time 2D With Doppler And Color Completed Flow 11/18/2012 71924 EKG Tracing & Interpretation Completed 09/03/2012 36557 Holter Monitor Review (24 hr)dr cheikh jay Completed only 09/01/2012 43282 Holter Monitor Review (24 hr)dr cheikh jay Completed only 08/21/2012 20829 EEG Recording Awake & Asleep Completed Encounters Type Date Location Provider CPT E/M Dx Office Visit 01/21/2018 9:40a [facility] Internal Baldev Bonner, [address] J45.40 Medicine - [address] Pablo,FACP Z23 Office Visit 01/15/2018 1:40p [facility] Internal Tanvir Vizcarra M.D. [address]7961 E03.9 Medicine - [address] K21.9 E66.01 F32.9 H81.399 Office Visit 01/02/2018 3:45p [facility] Clinton Yadav [address] F44.5 Pablo G43.909 Office Visit 10/16/2017 1:40p [facility] Internal Tanvir Vizcarra M.D. 95676 E03.9 Medicine - [address] F32.9 K21.9 E66.01 Z23 Z68.43 Office Visit 09/12/2017 9:15a [facility] Clinton Blanco [address] G43.909 Pablo Yadav F44.5 Office Visit 09/09/2017 9:15a [facility] [place] [address] G47.33 Services Of [facility] E66.01 Office Visit 07/21/2017 10:15a [facility] [address] R06.83 [facility] J44.9 E66.01 Office Visit 07/18/2017 3:00p [facility] [place] Blanco 522[address] G43.909 Pablo Yadav F44.5 Office Visit 07/17/2017 1:20p [facility] Internal Tanvir Vizcarra M.D. 99962 E03.9 Medicine - [address] E66.01 R73.9 Office Visit 06/18/2017 1:20p [facility] Internal Tanvir Vizcarra 49564 R30.0 Elizabeth Hassan M.D. Office Visit 05/15/2017 2:00p [facility] Internal Tanvir Vizcarra 66862 Z00.00 Medicine - [address] Shah D17.9 G47.33 F33.9 Office Visit 04/18/2017 10:15a [facility] [place] Blanco 41725 G43.90Hang Yadav M.D. F44.5 Office Visit 04/08/2017 11:20a [facility] Internal Tanvir Vizcarra M.D. 56789 J06.9 Medicine - [address] H81.393 E03.9 Office Visit 04/02/2017 2:20p [facility] Internal Medicine Marito Turpin, 53089 K08.89 - Sherwin Shah Office Visit 03/25/2017 3:40p [facility] Internal Medicine Tanvir Vizcarra [address]287 K05.00 - [address] Pabol Office Visit 10/31/2016 2:20p [facility] [place] [address] J00 - [address] Office Visit 10/29/2016 11:00a [facility] [place] [address] F41.[address] F33.9 F44.5 G43.909 Z02.71 Office Visit 10/17/2016 10:00a [facility] [place] Blanco [address] G43.909 Pablo Yadav F44.5 Office Visit 10/07/2016 10:40a [facility] [place] [address] F33.9 D48.5 R22.2 Office Visit 07/04/2016 11:01a [facility] [address] F44.5 Office Visit 07/03/2016 11:01a [facility] [address] F44.5 G43.909 Office Visit 07/02/2016 11:00a [facility] [address] F44.5 G43.909 Office Visit 07/01/2016 10:59a [facility] [address] F44.5 G43.909 Office Visit 06/30/2016 10:59a [facility] [place] [address] F44.5 G43.909 Office Visit 06/29/2016 10:58a [facility] [place] [address] F44.5 G43.909 Office Visit 06/28/2016 10:55a [facility] [address] F44.5 G43.909 Office Visit 05/10/2016 10:45a [facility] Clinton Yadav, 79876 G43.009 Services Of Dona Shah G40.209 Office Visit 05/03/2016 1:40p [facility] Internal Medicine - Jeremiah Zendejas, JANNIE [address] S50.12xA Office Visit 03/26/2016 3:00p [facility] [place] [address] J02.9 Office Visit 02/22/2016 1:00p [facility] [place] [address] Office Visit 01/24/2016 3:40p [facility] [place] [address] Office Visit 01/01/2016 3:00p [facility] [place] [address] R11.2 Office Visit 12/20/2015 2:40p [facility] [place] [address] G40.909 E55.9 F32.9 E66.9 J45.909 G43.009 R19.7 Z13.220 Z13.1 R00.0 B37.2 H92.09 Office Visit 12/18/2015 1:00p [facility] Internal Medicine - Jeremiah Zendejas, HAND EDGER [address] R05 Office Visit 11/14/2015 3:00p [place] [address] G40.909 Services Of [facility] F41.9 Office Visit 10/30/2015 3:30p [facility] Internal Medicine - Jeremiah Zendejas, HAND EDGER [address] H66.92 Office Visit 10/11/2015 10:00a [facility] Internal Medicine - Jeremiah Zendejas, HAND EDGER [address] K59.1 Office Visit 09/13/2015 4:00p [facility] Internal Medicine - Jeremiah Zendejas, HAND EDGER [address] G40.909 Office Visit 08/14/2015 11:30a [facility] Internal Medicine - Jeremiah Zendejas, HAND EDGER [address] R35.0 Office Visit 06/22/2015 2:30p [facility] Internal Medicine - Jeremiah Zendejas, HAND EDGER [address] Office Visit 06/13/2015 3:00p [facility] Internal Medicine - Jeremiah Zendejas, HAND EDGER [address] 300.02 780.39 300.00 Office Visit 05/16/2015 10:30a [facility] Internal Medicine - Jeremiah Zendejas, HAND EDGER [address] Office Visit 05/09/2015 11:00a [facility] Internal Medicine - Jeremiah Zendejas, HAND EDGER [address] 462 461.1 786.2 784.0 380.10 Office Visit 03/17/2015 11:00a [facility] Internal Medicine - Jeremiah Zendejas, HAND EDGER [address] 300.11 Office Visit 03/06/2015 2:00p [facility] Internal Medicine Alan Zendejas, HAND EDGER [address] 461.1 784.0 780.4 Office Visit 03/02/2015 1:45p Terrell/Scooter Yadav, 77570 345.90 Neurologic Serv Of Dona Shah 300.11 Office Visit 02/14/2015 11:30a [facility] Internal Medicine - Jeremiah Zendejas, HAND EDGER [address] Office Visit 02/02/2015 3:00p [facility] Internal Medicine - Jeremiah Zendejas, HAND EDGER [address] 702.8 Office Visit 01/16/2015 2:30p [facility] Internal Medicine - Jeremiah Zendejas, HAND EDGER [address] 300.02 698.9 Office Visit 01/13/2015 1:30p [facility] Internal Medicine - Jeremiah Zendejas, HAND EDGER [address] 493.10 698.9 Office Visit 12/15/2014 2:30p Terrell/Scooter Yadav, 85682 345.90 Neurologic Serv Of Marine Underwriter M.D. Office Visit 12/07/2014 2:00p [facility] Internal Medicine - Jeremiah Zendejas, HAND EDGER [address] 345.90 [place] 293.83 372.00 268.9 V77.1 296.90 Office Visit 10/11/2014 1:30p [facility] Internal Medicine - Jeremiah Zendejas, HAND EDGER 99641 133.0 [place] 698.8 690.18 Office Visit 09/26/2014 11:30a [facility] Internal Medicine Jeremiah Zendejas, HAND EDGER [address]40 461.9 [place] 786.2 311 Office Visit 08/30/2014 1:30p [facility] Internal Medicine - Jeremiah Zendejas, HAND EDGER [address]6872 311 [place] 786.2 Office Visit 08/22/2014 11:30a [facility] Internal Medicine Jeremiah Zendejas, HAND EDGER 56838 466.0 [place] 311 280.9 Office Visit 08/18/2014 9:30a Terrell/Scooter Yadav, 67814 345.90 Neurologic Serv Of [employer] M.D. Office Visit 08/09/2014 10:00a [facility] Internal Medicine Alan Lorenzo, 98649 780.79 Sonya Shah 300.02 345.90 278.00 V17.49 268.9 493.10 Office Visit 06/16/2013 3:30p Scooter Yadav, 13485 345.90 Services Of [employer] M.D. 300.02 Office Visit 02/25/2013 11:50a [facility] Internal Medicine Yudi Carlin 84691 345.91 - [place] Pablo 493.90 300.00 Office Visit 02/17/2013 11:15a [facility] Clinton Yadav, 95431 345.90 Services Of [employer] M.DBryant Office Visit 02/11/2013 1:00p [facility] Internal Medicine Dinorah Lorenzo M.D. 81930 345.91 - [place] Office Visit 11/18/2012 9:30a [facility] Fideldillan Goodwin, 85244 786.50 [facility] Telma.Ebony, [facility], FASNC 785.1 Office Visit 11/17/2012 9:30a [facility] Clinton Yadav, 29345 345.40 Services Of Marine Underwriter Telma.Ebony 346.10 Office Visit 10/27/2012 11:00a [facility] Internal Tanvir Vizcarra 45336 780.4 Medicine - Sonya Shah Office Visit 09/28/2012 11:20a [facility] Internal Tanvir Vizcarra 07256 493.90 Medicine - Sonya Shah 466.0 Office Visit 09/07/2012 2:40p [facility] Internal Medicine Tanvir Vizcarra 28932 346.92 - [place] M.DBryant Office Visit 09/01/2012 11:00a [facility] Clinton Yadav, 10574 345.91 Services Of Dona Shah Office Visit 08/31/2012 11:40a [facility] Internal Medicine Tanvir Vizcarra 12655 427.89 - Sonya Shah 346.92 Office Visit 08/20/2012 12:10p [facility] Internal Medicine Yudi Carlin 16033 300.00 - Sonya Shah 493.90 401.9 V06.1 Office Visit 07/20/2012 11:50a [facility] Internal Medicine Yudi Carlin 67613 V04.81 - [place] Pablo 345.90 300.00 493.90 401.9 Plan of Care Future Appointment(s):04/21/2018 4:00 pm - Tanvir Vizcarra M.D. at [facility] Internal Medicine - [address]04/03/2018 3:15 pm - Clinton Yadav M.D. at [facility]/10/2018 - Tanvir Vizcarra M.D.H81.399 Other peripheral vertigo, unspecified earNew Medication:Meclizine HCL 25 mgComments: Most likely benign positional vertigoFollow up:As scheduled. If the symptoms does not get better callG40.909 Epilepsy, unsp, not intractable, without status epilepticus
[2018-04-10] MEDS ORDERED: predniSONE TAB* 20 MG PO ONE (02:08)
[2018-04-10] MEDS ORDERED: Lidocaine 2% VISCOUS* 15 ML UDC PO ONE (02:09)
--- NOTE | 2018-04-10 03:05 | ED ---
Joni Chavez Tiffany, scribed for Cydney Chen MD on 04/10/18 at 0217 . Throat Pain/Nasal Congestion - HPI Summary HPI Summary: 37 year old F presenting to [facility] "feeling like something is stuck in my throat " since yesterday morning. Symptoms aggravated by swallowing. Symptoms alleviated by nothing. Pt reports sore throat, difficulty swallowing. Pt denies fever. Pt states she ate PB&J sandwich for dinner two nights ago. - History of Current Complaint Chief Complaint: EDForeignBodyEsophag Time Seen by Provider: 04/10/18 01:59 Hx Obtained From: Patient Onset/Duration: Lasting Days - yesterday morning, Still Present - Allergies/Home Medications Allergies/Adverse Reactions: Allergies Allergy/AdvReac Type Severity Reaction Status Date / Time amoxicillin [From Augmentin] Allergy Hives Verified 04/10/18 01:37 clavulanic acid Allergy Hives Verified 04/10/18 01:37 [From Augmentin] clindamycin Allergy Hives Verified 04/10/18 01:38 formoterol [From Dulera] Allergy Hives Verified 04/10/18 01:39 iohexol [From Omnipaque] Allergy Hives Verified 04/10/18 01:41 latex Allergy Hives Verified 04/10/18 01:40 lemon oil Allergy Vomiting Verified 04/10/18 01:39 metronidazole Allergy Hives Verified 04/10/18 01:41 paroxetine [From Paxil] Allergy Swelling Verified 04/10/18 01:41 Penicillins Allergy Shortness Verified 04/10/18 01:37 of Breath sertraline [From Zoloft] Allergy Hives Verified 04/10/18 01:38 zonisamide Allergy Hives Verified 04/10/18 01:38 PSEUDOEPHEDRINE Allergy Unknown Uncoded 07/23/17 19:32 Reaction Details PMH/Surg Hx/FS Hx/Imm Hx Previously Healthy: No Endocrine/Hematology History: Reports: Hx Diabetes - "pre diabetes", Hx Thyroid Disease, Hx Anemia Denies: Hx Unexplained Bleeding Cardiovascular History: Denies: Hx Aneurysm, Hx Angina, Hx Angioplasty, Hx Auto Implanted Cardiovert Defib, Hx Cardiac Arrest, Hx Cardiomegaly, Hx Congenital Heart Disease, Hx Congestive Heart Failure, Hx Coronary Artery Disease, Hx Deep Vein Thrombosis, Hx Embolism, Hx Hypercholesterolemia, Hx Hypotension, Hx Hypertension - In the past--she is on no medications for this., Hx Myocardial Infarction, Hx Pacemaker /ICD, Hx Peripheral Vascular Disease, Hx Rheumatic Fever, Hx Syncope, Hx Valvular Heart Disease, Other Cardiovascular Problems/Disorders Respiratory History: Reports: Hx Asthma, Hx Chronic Bronchitis, Hx Chronic Obstructive Pulmonary Disease (COPD) Denies: Hx Cystic Fibrosis, Hx Lung Cancer, Hx Pleural Effusion, Hx Pneumonia , Hx Pulmonary Edema, Hx Pulmonary Embolism, Hx Seasonal Allergies, Hx Sleep Apnea, Other Respiratory Problems/Disorders GI History: Reports: Hx Gastroesophageal Reflux Disease - ON DAILY PROLOSEC Denies: Hx Gall Bladder Disease, Hx Gastrointestinal Bleed, Hx Ulcer, Hx Urosepsis History: Denies: Hx Kidney Stones, Hx Renal Disease Sensory History: Reports: Hx Contacts or Glasses Denies: Hx Cataracts, Hx Eye Injury, Hx Eye Prosthesis, Hx Glaucoma, Hx Legally Blind, Hx Macular Degeneration, Hx Vision Problem, Hx Deafness, Hx Hearing Aid, Hx Hearing Problem, Other Sensory Impairments Opthamlomology History: Reports: Hx Contacts or Glasses Denies: Hx Cataracts, Hx Eye Injury, Hx Eye Prosthesis, Hx Glaucoma, Hx Legally Blind, Hx Macular Degeneration, Hx Vision Problem, Other Sensory Impairments Neurological History: Reports: Hx Developmental Delay - 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., Hx Migraine - OCCASSIONAL, USES [facility], Hx Seizures - SINCE 2004; LAST WAS 04/2014, Other Neuro Impairments/Disorders - epilepsy Denies: Hx Dementia, Hx Transient Ischemic Attacks (TIA) Psychiatric History: Reports: Hx Anxiety - ON MEDS PRN, Hx Depression, Hx Community Mental Health Tx - not currently; previously used [employer] and [employer] Mental health, Hx Bipolar Disorder Denies: Hx Post Traumatic Stress Disorder, Hx Schizophrenia, Hx Suicide Attempt, Hx Substance Abuse - Surgical History Surgery Procedure, Year, and Place: Scalp Cystectomy May 2014, Abdominal Lipoma May 2014 Hx Anesthesia Reactions: No Infectious Disease History: No Infectious Disease History: Denies: Hx Clostridium Difficile, Hx Hepatitis, Hx Human Immunodeficiency Virus (HIV), Hx of Known/Suspected MRSA, Hx Shingles, Hx Tuberculosis, Hx Known/ Suspected VRE, Hx Known/Suspected VRSA, History Other Infectious Disease, Traveled Outside the [place] in Last 30 Days - Family History Known Family History: Negative: Renal Disease, Seizure Disorder - Social History Alcohol Use: None Hx Substance Use: No Substance Use Type: Reports: None Hx Tobacco Use: Yes Smoking Status (MU): Former Smoker Type: Cigarettes Have You Smoked in the Last Year: No Review of Systems Negative: Fever Positive: Sore Throat, Other - "feeling like something is stuck in my throat," difficulty swallowing All Other Systems Reviewed And Are Negative: Yes Physical Exam - Summary Physical Exam Summary: VITAL SIGNS: Reviewed. GENERAL: Patient is a well-developed and nourished (MALE OR FEMALE) who is lying comfortable in the stretcher. Patient is not in any acute respiratory distress. HEAD AND FACE: No signs of trauma. No ecchymosis, hematomas or skull depressions. No sinus tenderness. EYES: PERRLA, EOMI x 2, No injected conjunctiva, no nystagmus. EARS: Hearing grossly intact. Ear canals and tympanic membranes are within normal limits. MOUTH: pharyngeal erythema with no exudate NECK: Supple, trachea is midline, no adenopathy, no JVD, no carotid bruit, no c- spine tenderness, neck with full ROM. CHEST: Symmetric, no tenderness at palpation LUNGS: Clear to auscultation bilaterally. No wheezing or crackles. CVS: Regular rate and rhythm, S1 and S2 present, no murmurs or gallops appreciated. ABDOMEN: Soft, non-tender. No signs of distention. No rebound no guarding, and no masses palpated. Bowel sounds are normal. EXTREMITIES: FROM in all major joints, no edema, no cyanosis or clubbing. NEURO: Alert and oriented x 3. No acute neurological deficits. Speech is normal and follows commands. SKIN: Dry and warm Triage Information Reviewed: Yes Vital Signs On Initial Exam: Initial Vitals Temp Pulse Resp BP Pulse Ox 98.1 F 89 16 143/86 99 04/10/18 01:34 18 01:34 18 01:34 04/10/18 01:34 04/10/18 01:34 Vital Signs Reviewed: Yes Diagnostics - Vital Signs Vital Signs Temp Pulse Resp BP Pulse Ox 04/10/18 01:34 98.1 F 89 16 143/86 99 - Laboratory Lab Statement: Any lab studies that have been ordered have been reviewed, and results considered in the medical decision making process. EENT Course/Dx - Course Course Of Treatment: 37 year old F presenting to [facility] "feeling like something is stuck in my throat" since yesterday morning. Strep test came back negative. Pt given Prednisone in ED. Pt will be discharged with prescription and followup from PMD in 1-2 days. - Diagnoses Provider Diagnoses: Pharyngitis Discharge - Sign-Out/Discharge Documenting (check all that apply): Discharge/Admit/Transfer - Discharge Plan Condition: Stable Disposition: HOME Patient Education Materials: Pharyngitis (ED) Referrals: Tanvir Vizcarra MD [Primary Care Provider] - 2 Days Additional Instructions: Follow up with your primary care provider in 1-2 days. Return to the Emergency Department for any new or worsening symptoms. The documentation as recorded by the Joni villalobos Tiffany accurately reflects the service I personally performed and the decisions made by me, Cydney Chen MD.
[2018-04-10 03:12] VITALS: BP 149/89
== END 2018-04-10 03:12 | disposition home or self-care (01) ==
LOC: ED 01:31
DX: J02.9 Acute pharyngitis, unspecified (principal); Z87.891 Personal history of nicotine dependence; R73.03 Prediabetes; R62.50 Unspecified lack of expected normal physiological development in childhood; F41.9 Anxiety disorder, unspecified; F31.9 Bipolar disorder, unspecified
CPT/HCPCS: 87651; 99282; J7512

== ENCOUNTER 2018-05-07 11:17 | Emergency (ER) | payer OTHER ==
[2018-05-07 11:33] VITALS: BP 150/78
--- NOTE | 2018-05-07 11:39 | UC ---
Dental HPI - HPI Summary HPI Summary: 37 yo female presents with a lesion to the inside of her lower lip. She noticed this 3 days ago and thinks she bit her lip in her sleep as she remembers waking up in the middle of the night with a bleeding lip and admits to having bad dental hygiene with several sharp pointy teeth. She went to her dentist's office this morning, but was told the dentist was on vacation this week and they advised her to come to . She denies fever, chills. - History of Current Complaint Chief Complaint: UCGeneralIllness Stated Complaint: ORAL COMPLAINT Time Seen by Provider: 05/07/18 11:39 Hx Obtained From: Patient Hx Last Menstrual Period: 04/09/18 Onset/Duration: Gradual Onset Severity: Severe Pain Intensity: 10 Pain Scale Used: 0-10 Numeric - Allergies/Home Medications Allergies/Adverse Reactions: Allergies Allergy/AdvReac Type Severity Reaction Status Date / Time acetaminophen Allergy Swelling Verified 05/07/18 11:33 Of Face,Lips,& Throat amoxicillin [From Augmentin] Allergy Hives Verified 05/07/18 11:33 clavulanic acid Allergy Hives Verified 05/07/18 11:33 [From Augmentin] clindamycin Allergy Hives Verified 05/07/18 11:33 formoterol [From Dulera] Allergy Hives Verified 05/07/18 11:33 iohexol [From Omnipaque] Allergy Hives Verified 05/07/18 11:33 latex Allergy Hives Verified 05/07/18 11:33 lemon oil Allergy Vomiting Verified 05/07/18 11:33 metronidazole Allergy Hives Verified 05/07/18 11:33 paroxetine [From Paxil] Allergy Swelling Verified 05/07/18 11:33 Penicillins Allergy Shortness Verified 05/07/18 11:33 of Breath sertraline [From Zoloft] Allergy Hives Verified 05/07/18 11:33 zonisamide Allergy Hives Verified 05/07/18 11:33 PSEUDOEPHEDRINE Allergy Unknown Uncoded 05/07/18 11:33 Reaction Details PMH/Surg Hx/FS Hx/Imm Hx Respiratory History: COPD, Asthma Psychological History: Bipolar Disorder Other History Of: Negative For: HIV, Hepatitis B, Hepatitis C - Surgical History Surgical History: Yes Surgery Procedure, Year, and Place: Scalp Cystectomy May 2014, Abdominal Lipoma May 2014 - Family History Known Family History: Negative: Renal Disease, Seizure Disorder - Social History Lives: With Family Alcohol Use: None Substance Use Type: None Smoking Status (MU): Former Smoker Type: Cigarettes Have You Smoked in the Last Year: No - Immunization History Most Recent Influenza Vaccination: Fall 2014 Most Recent Tetanus Shot: 2014 Most Recent Pneumonia Vaccination: unknown Review of Systems Constitutional: Negative Skin: Negative Eyes: Negative ENT: Dental Pain Respiratory: Negative Cardiovascular: Negative Gastrointestinal: Negative Neurological: Negative Psychological: Negative All Other Systems Reviewed And Are Negative: Yes Physical Exam - Summary Physical Exam Summary: GENERAL: NAD. WDWN. No pain distress. SKIN: Inside of lower lip: 5mm puncture wound that is hard to touch and moderately tender. No purulent discharge or bleeding. NECK: Supple. Nontender. No lymphadenopathy. CHEST: No accessory muscle use. Breathing comfortably and in no distress. CV: RRR. Without m/r/g. NEURO: Alert. CN II-XII grossly intact. PSYCH: Age appropriate behavior. Triage Information Reviewed: Yes Vital Signs: Initial Vital Signs Temp 97.3 F 05/07/18 11:30 Pulse 84 05/07/18 11:30 Resp 18 05/07/18 11:30 BP 150/78 05/07/18 11:30 Pulse Ox 99 05/07/18 11:30 Dental Complaint Course/Dx - Course Course Of Treatment: Will cover her with anbx cipro given her various allergies. Also for lidocaine viscous for the pain and topical dexamethasone to help resolve. - Differential Dx/Diagnosis Provider Diagnoses: Puncture wound lower lip Discharge - Sign-Out/Discharge Documenting (check all that apply): Discharge/Admit/Transfer - Discharge Plan Condition: Stable Disposition: HOME Prescriptions: Ciprofloxacin SUSP* [Cipro 250 MG/5 ML SUSP*] 10 ml PO BID #140 ml Dexamethasone [Decadron] 0.5 mg SWISH SPIT TID #100 ml Lidocaine 2% VISCOUS* [Xylocaine 2% Viscous*] 15 ml SWISH SPIT Q6H PRN #100 ml PRN Reason: Pain Patient Education Materials: Canker Sores (ED) Referrals: [facility] [Primary Care Provider] - Additional Instructions: If you develop a fever, shortness of breath, chest pain, new or worsening symptoms - please call your PCP or go to the ED. Your blood pressure was high at todays visit. Please see your primary provider within 4 weeks for recheck and re-evaluation. 1) If the lesions in your mouth does not improve by friday, please call your dentist to schedule an appointment - Billing Disposition and Condition Condition: STABLE Disposition: Home
== END 2018-05-07 11:53 | disposition home or self-care (01) ==
LOC: UCCORT 11:17
DX: S01.531A Puncture wound without foreign body of lip, initial encounter (principal); X58.XXXA Exposure to other specified factors, initial encounter; Y93.84 Activity, sleeping; Y92.003 Bedroom of unspecified non-institutional (private) residence as the place of occurrence of the external cause; Z88.0 Allergy status to penicillin; Z88.2 Allergy status to sulfonamides; Z88.8 Allergy status to other drugs, medicaments and biological substances; Z88.6 Allergy status to analgesic agent; Z88.1 Allergy status to other antibiotic agents; Z91.041 Radiographic dye allergy status; Z87.891 Personal history of nicotine dependence
CPT/HCPCS: 99212; G0463

== ENCOUNTER 2018-06-09 07:36 | Emergency (ER) | payer OTHER ==
[2018-06-09 07:58] VITALS: BP 161/88
--- NOTE | 2018-06-09 08:52 | RAD ---
Indication: Left knee pain. 4 views of left knee demonstrates no fracture. No other bone or joint abnormality is identified. There is soft tissue swelling in the medial aspect of the knee. IMPRESSION: No fracture of the left knee is noted. No joint effusion is noted.
--- NOTE | 2018-06-09 09:21 | UC ---
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 Twisted left knee and landed on it awkwardly. Now has pain with weight bearing. - History of Current Complaint Chief Complaint: UCLowerExtremity Stated Complaint: L KNEE INJURY Time Seen by Provider: 06/09/18 07:56 Hx Obtained From: Patient Hx Last Menstrual Period: 05/08/18 Onset/Duration: Sudden Onset, Lasting Minutes, Still Present Severity Initially: Moderate Severity Currently: Moderate Pain Intensity: 9 Pain Scale Used: 0-10 Numeric Character: Sharp, Aching Aggravating Factor(s): Movement, Weight Bearing Alleviating Factor(s): Position Associated Signs And Symptoms: Positive: Negative Able to Bear Weight: Yes - WITH PAIN - Allergies/Home Medications Allergies/Adverse Reactions: Allergies Allergy/AdvReac Type Severity Reaction Status Date / Time acetaminophen Allergy Swelling Verified 06/09/18 07:48 Of Face,Lips,& Throat amoxicillin [From Augmentin] Allergy Hives Verified 06/09/18 07:48 blueberry Allergy Hives/Diff. Verified 06/09/18 07:48 Breathing/I tching clavulanic acid Allergy Hives Verified 06/09/18 07:48 [From Augmentin] clindamycin Allergy Hives Verified 06/09/18 07:48 coconut Allergy Hives/Diff. Verified 06/09/18 07:48 Breathing/I tching formoterol [From Dulera] Allergy Hives Verified 06/09/18 07:48 iohexol [From Omnipaque] Allergy Hives Verified 06/09/18 07:48 latex Allergy Hives Verified 06/09/18 07:48 lemon oil Allergy Vomiting Verified 06/09/18 07:48 metronidazole Allergy Hives Verified 06/09/18 07:48 paroxetine [From Paxil] Allergy Swelling Verified 06/09/18 07:48 Penicillins Allergy Shortness Verified 06/09/18 07:48 of Breath sertraline [From Zoloft] Allergy Hives Verified 06/09/18 07:48 watermelon Allergy Hives/Diff. Verified 06/09/18 07:48 Breathing/I tching zonisamide Allergy Hives Verified 06/09/18 07:48 pickle Allergy Hives/Diff. Uncoded 06/09/18 07:48 Breathing/I tching PSEUDOEPHEDRINE Allergy Unknown Uncoded 06/09/18 07:48 Reaction Details Home Medications: Home Medications Ascorbic Acid [Vitamin C] 1,000 mg PO DAILY 06/09/18 [History Confirmed 06/09/18 ] Benzonatate 150 mg PO ONCE PRN 06/09/18 [History Confirmed 06/09/18] Vitamin E 100 unit PO DAILY 06/09/18 [History Confirmed 06/09/18] PMH/Surg Hx/FS Hx/Imm Hx Endocrine History: Hypothyroidism Respiratory History: COPD, Asthma Neurological History: Seizures Psychological History: Anxiety, Depression Other History Of: Negative For: HIV, Hepatitis B, Hepatitis C - Surgical History Surgical History: Yes Surgery Procedure, Year, and Place: Scalp Cystectomy May 2014, Abdominal Lipoma May 2014 - Family History Known Family History: Negative: Renal Disease, Seizure Disorder - Social History Alcohol Use: None Substance Use Type: Prescribed Smoking Status (MU): Former Smoker Type: Cigarettes Have You Smoked in the Last Year: No - Immunization History Most Recent Influenza Vaccination: Fall 2014 Most Recent Tetanus Shot: 2014 Most Recent Pneumonia Vaccination: unknown Review of Systems Constitutional: Negative Skin: Negative Respiratory: Negative Cardiovascular: Negative Gastrointestinal: Negative Musculoskeletal: Arthralgia, Decreased ROM All Other Systems Reviewed And Are Negative: Yes Physical Exam Triage Information Reviewed: Yes Appearance: Well-Appearing, No Pain Distress, Well-Nourished Vital Signs: Initial Vital Signs Temp 98.6 F 06/09/18 07:42 Pulse 83 06/09/18 07:42 Resp 18 06/09/18 07:42 BP 161/88 06/09/18 07:42 Pulse Ox 97 06/09/18 07:42 Vital Signs Reviewed: Yes Eyes: Positive: Conjunctiva Clear ENT: Positive: Hearing grossly normal Neck: Positive: Supple Respiratory: Positive: No respiratory distress, No accessory muscle use Cardiovascular: Positive: Pulses Normal Abdomen Description: Positive: Soft Musculoskeletal: Positive: No Edema, ROM Limited @ - LEFT KNEE, Other: - LEFT KNEE: TENDER DIFFUSELY. MCL AND LCL INTACT TO STRESS TESTING. NEG DRAWERS SIGNS. EQUIVOCAL MCMURRAYS. DECREASED ROM (FLEXION). Neurological: Positive: Alert Psychological: Positive: Age Appropriate Behavior Skin: Negative: rashes Diagnostics - Radiology LEFT KNEE XRAY Xray Interpretation: No Acute Changes Radiology Interpretation Completed By: Radiologist Knee Pain Course/Dx - Differential Dx/Diagnosis Provider Diagnoses: LEFT KNEE SPRAIN Discharge - Sign-Out/Discharge Documenting (check all that apply): Patient Departure - Discharge Plan Condition: Stable Disposition: HOME Patient Education Materials: Knee Sprain (ED) Referrals: Luis Nazario MD [Medical Doctor] - (IF NEEDED) Jose Bell NP [Primary Care Provider] - If Needed Additional Instructions: XRAY TODAY NEGATIVE FOR FRACTURE OR DISLOCATION. YOUR SYMPTOMS SHOULD IMPROVE SIGNIFICANTLY OVER THE NEXT 1-2 WEEKS. IF YOU DO NOT IMPROVE EXPECTED FOLLOW- UP WITH YOUR PCP OR ORTHO. YOU MAY BENEFIT FROM REPEAT IMAGING AT THAT TIME. OTC IBUPROFEN OR ALEVE NEEDED FOR DISCOMFORT. REST, ICE, COMPRESS, ELEVATE. FAISAL WRAP AND CRUTCHES NEEDED FOR SYMPTOM RELIEF. BE SURE TO GO THROUGH SLOW RANGE OF MOTION AND STRETCHING EXERCISES DAILY YOU ARE ABLE TO PREVENT STIFFENING UP AND MAKING THE DISCOMFORT WORSE. YOUR BLOOD PRESSURE WAS ELEVATED TODAY (161/88). THIS MAY BE DUE TO YOUR ACUTE CONDITION. MONITOR AND FOLLOW-UP WITH YOUR PCP WITHIN 4 WEEKS IF IT HAS NOT RETURNED TO NORMAL. - Billing Disposition and Condition Condition: STABLE Disposition: Home
== END 2018-06-09 09:36 | disposition home or self-care (01) ==
LOC: UCEAST 07:36
DX: S83.92XA Sprain of unspecified site of left knee, initial encounter (principal); J44.9 Chronic obstructive pulmonary disease, unspecified; Z88.6 Allergy status to analgesic agent; Z88.0 Allergy status to penicillin; Z91.041 Radiographic dye allergy status; Z91.018 Allergy to other foods; Z88.1 Allergy status to other antibiotic agents; Z88.8 Allergy status to other drugs, medicaments and biological substances; Z87.891 Personal history of nicotine dependence; X50.1XXA Overexertion from prolonged static or awkward postures, initial encounter; Y92.89 Other specified places as the place of occurrence of the external cause
CPT/HCPCS: 99203; G0463

== ENCOUNTER 2018-10-23 13:33 | Emergency (ER) | payer OTHER ==
--- OUTSIDE RECORDS SUMMARY | 2018-10-23 13:40 | XMS REPORT | Continuity of Care Document ---
:1980 External Reference #:[id number] Author Name Julissa Shaver Care Team Providers Name Role Phone Tanvir Vizcarra MD Primary Care Physician Unavailable Payers Type Date Identification Numbers Payment Provider Subscriber Effective: Policy Number: [id number] [place] Dean Peng 2012 Medicaid PayID: [id number] [address] [address] [place] [address] Advance Directives Type Date Description Status Comment [...] Active Onset: 05/15/2017 Obstructive sleep apnea syndrome Tanvir Vizcarra M.D. Active Onset: 05/15/2017 Recurrent major [...] removed. Social History Type Date Description Comments Sex Unknown Marital Status Lives With Boyfriend Occupation Disabled ETOH Use 01/21/2018 Denies alcohol use Tobacco Use Start: Unknown End: Unknown Patient is a former smoker Recreational Drug Use Denies Drug Use Smoking Status Reviewed: 10/21/18 Patient is a former smoker Allergies, Adverse Reactions, Alerts Date Description Reaction Status Severity Comments 07/20/2012 Latex Contact dermatitis Active 07/20/2012 Sudafed High BP Active 02/25/2013 Lemon Anaphylaxis Active 09/29/2014 Augmentin diarrhea Active 03/06/2015 Paroxetine Active pt unaware of reaction 03/06/2015 Pseudoephedrine Active unaware of reaction 03/06/2015 Zoloft Active unaware of reaction 03/17/2015 Darlyn confusion Active Severe 05/09/2015 Dye, Contrast arm swelled and Active Moderate "out of it" 06/13/2015 Dye, contrast swelling in hands, Active Severe cant breath 05/03/2016 Penicillin lessons ability to Active Moderate walk per pt 06/18/2017 Metronidazole nausea, vomiting, Active Moderate tachycardia 06/18/2017 Zonisamide Urticaria Active 01/02/2018 Peanut-containing Drug Active Products 04/22/2018 Tylenol Active face swells Medications Medication Date Status Form Strength Qnty SIG Indications Ordering Provider Doxycycline 10/22 Active Capsules 100mg 20cap take 1 tab Zsofia Monohydrate s po bid for Ray, MODEL MA[employer] SCALE 10 days Fluticasone 10/21 Active Suspension 50mcg/Act 16uni use 2 J01.90 Zsofia Propionate ts sprays in Ray, [employer]DEL [employer] SCALE each nostril one time a day Robitussin 12 10/21 Active Suer 30mg/5ML 89ml 5 ml po R05 Zsofia Hour Cough bid as MOSHE Bell Relief needed Nasal [place] 12 10/21 Active Solution 0.05% 30ml 2 sprays J01.90 Zsofia each MOSHE Bell nostril 2x daily as needed for congestion Doxycycline 08/19 Active Tablets 100mg 14tab 1 tab by Mary01.90 Zsofia Monohydrate s mouth MOSHE Bell twice a day for 7 days Benzonatate 08/19 Active Capsules 100mg 30cap take 1 tab R05 Zsofi s by mouth MOSHE Bell three times a day as needed for cough True Focus 08/17 Active Strips 100un use as Zsofia Self its directed MOSHE Bell Monitoring LAst Ov Blood Glucose 08/19/18 Test Strips Dx True Metrix Go 08/17 Active Kit w/Device 1unit use daily Zsofia Blood Glucose s as MOSHE Bell Meter directed last visit: 08/19/18 Breo Ellipta 08/11 Active Aerosol 100-25mcg 30uni inhale 1 Comfort /2018 /Inh ts puff by Pablo Oliver mouth once daily Ventolin HFA 07/15 Active Aerosol 108(90Bas 8gm 2 puffs by Mary45.30 Zsofi e) mouth four MOSHE Bell mcg/Act times a day as needed Guards 05/08 Active Misc 1unit use mouth K13.79 s guard at MOSHE Bell night Vitamin C 05/08 Active Tablets 500mg 60tab Take One D50.9 Zsofi s Tablet By MOSHE Bell Mouth Twice A Day Citalopram 03/12 Active Tablets 40mg 30tab take one Zsofia Hydrobromide s tablet by MOSHE Bell mouth every day Meclizine HCL 03/10 Active Tablets 25mg 90tab take 1/2-1 H81.399 Zsofia s tablet by MOSHE Bell mouth three times a day as needed Calcium 02/18 Active Tablets 600-400mg 180ta Take One J00 Tanvir Carbonate-Esther /2017 -Unit bs Tablet By Pachikara, min D Mouth M.D. Twice A Day With Food Arnuity 01/21 Active Aerosol 100mcg/Ac 30uni 1 puff Baldev Beck Ellipta t ts inhaled [place], every day M.D.,FACP Doxepin HCL 09/12 Active Capsules 10mg 120ca 4 capsules G43.909 Christoph ps every Adrien, M.D. night at bedtime Robitussin 12 10/10 Active Suer 30mg/5ML 118ml 1-2 J00 [place] Hour Cough teaspoon Pachikara, Relief at night M.D. as needed Ibuprofen 06/24 Active Tablets 800mg 90tab take one Zsofia s tablet MOSHE Bell three times daily as needed. Ventolin HFA 03/13 Active Aerosol 108(90Bas 1unit 2 puffs by Malu Beck /2015 e) s mouth four [place], mcg/Act times a M.D.,FACP day as needed Omeprazole 09/[address] 20mg 30cap take one K21.9 Zsofia /2014 s capsule by MOSHE Bell mouth every day KP Cetirizine 03/31 Active Tablets 10mg 30tab 1 by mouth Zsofia HCL /2014 s every day MOSHE Bell Ferrous 08/12 Active Tablets 324(38Fe) 180ta take one D50.9 Zsofia Gluconate /2014 mg bs tablet by MOSHE Bell mouth twice daily Albuterol 11/02 Active Nebulizer (2.5mg/3M 100un inhale the Baldev Beck Sulfate /2011 L) 0.083% its contents [place], of one M.D.,FACP vial via nebulizer every 4 to 6 hours as needed Lamotrigine 07/21 Active Tablets 100mg 210ta 3 by mouth Clinton S. /2011 bs every Chambers, morning M.D. and 4 every night at bedtime Flonase 00/00 Active Suspension 50mcg/Act 9.900 2 [place] Allergy Relief /0000 ml intranasal Pachikara, twice a M.D. day Levothyroxine 0000 Active Tablets 75mcg 1 by mouth E03.9 Unknown Sodium /0000 every day Cefuroxime 10/21 Hx Tablets 250mg 14tab 1 tab by H66.92 Zsofia Axetil /2017 s mouth Ray, [employer] SCALE - twice a 10/22 day for days J01.90 Advair Diskus 07/21/2018 Hx Aerosol 100-50mcg/Dose 60units inhale 1 [place] - dose by Zackery, 08/11/2018 mouth twice M.D. a day Flovent HFA 07/15/2018 Hx Aerosol 44mcg/Act 10.600gm 2 act twice J Zsofia - a day daily 4 Ray, MODEL [employer]ER SCALE 07/21/2018 for 2 week 5 rinse after . use 3 0 Cephalexin 07/15/2018 Hx Capsules 500mg 30caps take 1 tab L Zsofia - three times 0 Ray, MODEL MA[employer]ER SCALE 07/15/2018 a day for 3 10 days . 1 1 6 Sulfamethoxazole 07/15/2018 Hx Tablets 800-160mg 14tabs 1 tab po L Zsofia /Trimethoprim DS - bid x 7 0 Ray, [employer] SCALE 08/19/2018 days 3 . 1 1 6 Prednisone 01/21/2018 Hx Tablets 10mg 20tabs 4 tabs Baldev - every day Ebony Bonner, 01/29/2018 for 2 days, M.D.,FACP then reduce by 1 tab every 2 days until finished Calcium 10/20/2017 Hx Tablets 094-388ma-Dohr 180tabs take one [place] Carbonate-Vitami - tablet by Zackery n Calvin 01/01/2018 mouth twice M.D. a day with food Doxycycline 07/23/2017 Hx Tablets 100mg 20tabs 1 by mouth Other Hyclate - twice a day Ordering 08/02/2017 x 10 days Provider Acetaminophen-Co 07/23/2017 Hx Tablets 300-30mg 10tabs 1 tab by Unknown deine #3 - mouth q 6 09/11/2017 hrs day as needed pain Zonisamide 07/18/2017 Hx Capsules 100mg 60caps 2 tabs po G Clinton S. - qhs 4 Chambers, 01/01/2018 3 M.D. . 9 0 9 Doxycycline 06/18/2017 Hx Capsules 100mg 14caps 1 cab twice R [place] Hyclate - a day 3 Zackery, 07/17/2017 0 M.D. . 0 Nitrofurantoin 06/10/2017 Hx Capsules 100mg 14caps take one Other Macrocrystal - capsule Ordering 06/17/2017 twice daily Provider for 7 days. Zonisamide 04/18/2017 Hx Capsules 25mg 120caps 1 po qhs G Clinton S. - for 1 wk 4 Chambers, 06/18/2017 then 2 qhs 3 M.D. for 1 wk . then 3 qhs 9 for 1 wk 0 then 4 qhs 9 Azithromycin 04/08/2017 Hx Tablets 250mg 6tabs 2 tab today Mary Ramey - and then 0 Dominikikara, 04/10/2017 1tab daily 6 M.D. . 9 Meclizine HCL 04/08/2017 Hx Tablets 12.5mg 60tabs 1-2 tab two H [place] - times a day 8 Pachikara, 07/15/2018 1 M.D. . 3 9 3 Levothyroxine 04/08/2017 Hx Tablets 25mcg 45tabs take one E Tanvir Sodium - tablet by 0 Zackery, 01/21/2018 mouth every 3 M.D. morning . 9 Lidocaine 04/02/2017 Hx Solution 2% 200ml swish and Abundio Devi E. Viscous - spit 15cc 0 Dyana, 04/10/2017 up to three 8 M.D. times a day . as needed 8 9 Ketorolac 03/31/2017 Hx Tablets 10mg 3tabs take 1 by Bekah Tromethamine - mouth every [place], 04/10/2017 8 hours as M.D. needed for migraine. take with food. Ondansetron HCL 03/31/2017 Hx Tablets 4mg 10tabs one by Baldev - mouth every Ebony Bonner, 07/15/2018 8 hours as M.D.,FACP needed for nausea Clindamycin HCL 03/25/2017 Hx Capsules 300mg 40caps 1 tabs by Abundio Ramey - mouth every 0 Pachikara, 04/10/2017 6h 5 M.D. . 0 0 Vicodin 03/25/2017 Hx Tablets 5-300mg 20tabs 1 tab every Abundio Ramey - 12 hours 0 Pachikara, 05/21/2017 5 M.D. . 0 0 Citalopram 03/17/2017 Hx Tablets 10mg 30tabs Take One [place] Hydrobromide - Tablet By Zackery, 03/12/2018 Mouth Every M.D. Day Along With 20 MG Tablet To Equal Total Daily Dose Of 30 MG Calcium 600+D 10/31/2016 Hx Tablets 628-684ma-Crkm 180tabs 1 tab by Mary Ramey - mouth twice 0 Pachikara, 02/18/2018 a day take 0 M.D. w/ meal Topiramate 10/17/2016 Hx Tablets 100mg 75tabs 1 po qam G Clinton S. - and 1 11/11 4 Leif, 03/18/2017 qhs 3 M.D. . 9 0 9 Naproxen 05/03/2016 Hx Tablets 250mg 60tabs 1 tablet by M Jeremiah - mouth twice 7 Spanish, ROGUER 05/13/2016 a day as 9 needed . pain, with 6 foods 3 2 Prednisone 03/26/2016 Hx Tablets 20mg 5tabs 1 tablets J Jeremiah - by mouth 0 Spanish, ROGUER 05/03/2016 daily x's 5 2 days in the . morning 9 Meclizine HCL 03/26/2016 Hx Tablets 25mg 45tabs 1 tablet H Jeremiah - tid every 8 Spanish, ROGUER 04/09/2016 6-8 hours 1 as needed . 3 1 9 Escitalopram 03/11/2016 Hx Tablets 10mg 30tabs 1/2 tab po F Baldev Romeo - qd for 1 wk 3 D. [place], 03/14/2016 then 1 by 3 M.D.,FACP mouth every . day 9 Venlafaxine HCL 02/22/2016 Hx Tablets 37.5mg 22tabs 75 mg for 1 F Jeremiah - week, then 3 Spanish, ROGUER 03/13/2016 37.5 mg for 3 1 week, . then stop. 9 Zofran Odt 01/01/2016 Hx Tablets 4mg 12tabs 1 odt by R Jeremiah - Dispers mouth every 1 Spanish, ROGUER 01/02/2016 6 hours as 1 needed . nausea no 2 more than 3 daily Drisdol 12/25/2015 Hx Capsules 67562Qcfa 8caps 1 tab by Jeremiah - mouth once Spanish, ROGUER 02/22/2016 a week x's 8 weeks Nystop 12/20/2015 Hx Powder 065855Gncx/GM 1units apply B Jeremiah - topically 3 Spanish, ROGUER 02/22/2016 to rash 7 twice a day . until rash 2 resolved Cefdinir 10/30/2015 Hx Capsules 300mg 20caps 1 capsule J Jeremiah - twice a day 0 Spanish, ROGUER 11/09/2015 x's 10 days 1 . 9 0 Ipratropium 10/30/2015 Hx Solution 0.03% 1units instill 2 J Jeremiah [place] - sprays in 0 Spanish, ROGUER 11/13/2015 each 1 nostril . three times 9 a day as 0 needed nasal congestion Penicillin V 10/12/2015 Hx Tablets 500mg 20tabs 1 tablet by Jeremiah Potassium - mouth bid Spanish, ROGUER 10/22/2015 x10 days Clindamycin HCL 10/11/2015 Hx Capsules 300mg 30caps 1 capsule J Jeremiah - by mouth 0 Spanish, ROGUER 10/12/2015 three times 2 a day x's . 10 days 9 Cepacol Sore 10/11/2015 Hx Lozenges 5.4mg J Jeremiah Throat - 0 Spanish, ROGUER 10/16/2015 2 . 9 Freestyle 09/28/2015 Hx Misc 100units test bs Zsofia Lancets - once daily MOSHE Bell 08/16/2018 and as needed Freestyle System 09/28/2015 Hx Kit 250.02 Jeremiah - Spanish, ROGUER 08/16/2018 Freestyle Test 09/28/2015 Hx Strips 100units test strips Zsofia - use daily MOSHE Bell 08/16/2018 as directed Topiramate 09/10/2015 Hx Caps 25mg 90caps take 3 by Josefina Blanco - Sprinkle mouth at 4 Chambers, 10/17/2016 bedtime 3 M.D. . 9 0 9 Naproxen 08/24/2015 Hx Tablets 500mg 14tabs 1 tab by Jeremiah - mouth every Spanish, ROGUER 11/13/2015 12 hours. prn Benzonatate 08/22/2015 Hx Capsules 100mg 30caps 1 tab by R Zsofia - mouth three 0 MOSHE Bell 07/15/2018 times a day 5 as needed J00 [place] 07/05/2015 - Hx Tablets 7.5-325mg 6tabs 1 tab every Jeremiah 07/08/2015 6 hours up Spanish, to twice a ROGUER day x3 days [place] 06/22/2015 - Hx Tablets 7.5-325mg 30tabs 1 tab every 522. Jeremiah 07/05/2015 6 hours prn 0 Spanish, pain ROGUER Nystatin 05/26/2015 - Hx Suspension [id number]/ 225ml swish and Jeremiah 06/05/2015 ML swallow 5ml Spanish, four times ROGUER a day x's 10 days Clindamycin HCL 05/16/2015 - Hx Capsules 300mg 30caps 1 capsule 462 Jeremiah 05/26/2015 by mouth Spanish, three times ROGUER a day x's 10 days Medrol (Tj) 05/16/2015 - Hx Tablets 4mg 1tabs take as 462 Jeremiah 05/26/2015 prescribed Spanish, ROGUER Amoxicillin 05/09/2015 - Hx Tablets 875mg 20tabs take one 380. Jeremiah 05/19/2015 tablet by 13 Spanish, mouth twice ROGUER a day x's 10 days Cheratussin ac 05/09/2015 - Hx Syrup 100-10mg/5M 120ml 1-2 786. Jeremiah 05/19/2015 L teaspoon by 2 Spanish, mouth every ROGUER 4 to 6 hours as needed cough Amoxicillin 03/06/2015 - Hx Tablets 875mg 14tabs take one 381. Jeremiah 03/17/2015 tablet by 4 Spanish, mouth twice ROGUER a day x's 7 days Darlyn Allergy 03/06/2015 - Hx Tablets 180mg 30tabs 1 tab by 461. Jeremiah 03/17/2015 mouth daily 1 Spanish, x's 4-6 ROGUER weeks Zyrtec Allergy 02/10/2015 - Hx Capsules 10mg 30caps 1 by mouth [place] 02/14/2015 every day Bunny mckenzie M.D. Hydroxyzine HCL 02/02/2015 - Hx Tablets 25mg 2 tab by 698. Jeremiah 02/02/2015 mouth every 8 Spanish, 6 hours as ROGUER needed for itching Ranitidine HCL 02/02/2015 - Hx Capsules 150mg 60caps 1 capsule 698. Jeremiah 03/06/2015 po bid 9 Spanish, ROGUER Darlyn Allergy 02/02/2015 - Hx Tablets 180mg 60tabs 2 tab by 698. Tanvir 02/10/2015 mouth daily 9 Bunny mckenzie M.D. Prednisone 02/02/2015 - Hx Tablets 10mg 30tabs 5 698. Jeremiah 02/12/2015 pillsx's2da 9 Spanish, ys, ROGUER 4pillsx's2d ays, 3pillsx's2d ays, 2pillsx's2d ays,1pillx' s2days,then stop Hydroxyzine HCL 01/26/2015 - Hx Tablets 25mg 56tabs 2 tab by 698. Jeremiah 02/02/2015 mouth every 8 Spanish, 6 hours as ROGUER needed for itching Triamcinolone 01/23/2015 - Hx Cream 0.1% 30G apply Jeremiah Acetonide 01/26/2015 topically Spanish, twice a day ROGUER to affected sites Lorazepam 01/16/2015 - Hx Tablets 0.5mg 15tabs 1 by mouth Claudia, 01/16/2015 tid as Jean Claude needed , DO Lorazepam 01/16/2015 - Hx Tablets 0.5mg 15tabs 1 by mouth Spanish, 01/16/2015 tid as Jeremiah, needed ROGUER Alprazolam 01/16/2015 - Hx Tablets 0.5mg 60tabs 1/2-1 tab Jeremiah 03/17/2015 by mouth Spanish, twice a day ROGUER as needed Hydrocortisone 01/16/2015 - Hx Cream 1% 1tube apply tid Jeremiah Plus 01/26/2015 daily until Spanish, rash ROGUER resolved Hydroxyzine HCL 01/13/2015 - Hx Tablets 25mg 56tabs 2 tab by 698. Jeremiah 01/16/2015 mouth every 8 Spanish, 6 hours as ROGUER needed for itching Ranitidine 150 01/13/2015 - Hx Tablets 150mg 30tabs 1 tablet po 698. Jeremiah Maximum Strength 02/02/2015 qd until 8 Spanish, hives ROGUER resolve Tudorza Pressair 01/13/2015 - Hx Aerosol 400mcg/Act 1units 1 493. Jeremiah 02/02/2015 inhalation 10 Spanish, po qd ROGUER Alprazolam 01/05/2015 - Hx Tablets 0.5mg 20tabs 1 PO daily Jeremiah 01/16/2015 Dispers Spanish, ROGUER Vitamin D 12/11/2014 - Hx Tablets 1000Unit 30tabs 1 by mouth J00 Jeremiah 10/31/2016 every day Spanish, ROGUER Polytrim 12/07/2014 - Hx Solution 97630-9.1Un 1units 1 drop left 372. Jeremiah 12/12/2014 it/ML-% eye every 00 Spanish, four hours ROGUER while awake x's 5 days Hydroxyzine HCL 10/11/2014 - Hx Tablets 25mg 56tabs 2 tab by 698. Jeremiah 01/13/2015 mouth every 8 Spanish, 6 hours as ROGUER needed for itching Permethrin 10/11/2014 - Hx Cream 5% 1units apply from 133. Jeremiah 12/07/2014 neck to 0 Spanish, toes ROGUER topically leave on 8-14 hours then bath off. repeat in 7 days. Clarithromycin 09/29/2014 - Hx Tablets 500mg 14tabs 1 tab po Jeremiah 10/06/2014 bid x's 7 Spanish, days ROGUER Afrin 12 Hour 09/29/2014 - Hx Solution 0.05% 1units 2-3 sprays Jeremiah 12/07/2014 both nares Spanish, every 12 ROGUER hours as needed rhinorhea Amoxicillin/Clavu 09/26/2014 - Hx Tablets 875-125mg 20tabs 1 tablet by 461. Jeremiah lanate Potassium 09/29/2014 mouth twice 9 Spanish, a day x's ROGUER 10 days Cheratussin ac 09/26/2014 - Hx Syrup 100-10mg/5M 120ml 1-2 786. Jeremiah 10/01/2014 L teaspoon by 2 Spanish, mouth every ROGUER 4 to 6 hours as needed cough Citalopram 08/30/2014 - Hx Tablets 20mg 30tabs Take One F33. [place] Hydrobromide 03/12/2018 Tablet By 9 Pachikar Mouth Every a, M.D. Day Along With 10 MG Tablet To Equal Total Daily Dose Of 30 MG Citalopram 08/22/2014 - Hx Tablets 40mg 30tabs 1 tablet po 311 Jeremiah Hydrobromide 08/30/2014 daily Spanish, ROGUER Prednisone 08/18/2014 - Hx Tablets 20mg 10tabs 2 by mouth Unknown 09/26/2014 every day Cheratussin ac 08/18/2014 - Hx Syrup 100-10mg/5M 236ml 1-2 tsp by Jeremiah 09/26/2014 L mouth every Spanish, 4 to 6 ROGUER hours as needed cough Zithromax 08/18/2014 - Hx Tablets 250mg 11tabs 1 tab take Unknown 09/26/2014 2 on day 1, then 1 daily Sertraline HCL 12/16/2013 - Hx Tablets 100mg 30tabs 1 po qd Clinton Blanco 08/09/2014 Pablo Yadav Sertraline HCL 07/12/2013 - Hx Tablets 50mg 45tabs take 1.5 po Dedra Aparicio 12/16/2013 qd Pablo Rea Sertraline HCL 06/16/2013 - Hx Tablets 25mg 90tabs 3 po qhs Clinton Pearce. 07/12/2013 Pablo Yadav Symbicort 02/25/2013 - Hx Aerosol 160-4.5mcg/ 1units 2 puff 493. Jeremiah 05/09/2015 Act inhaled 90 Spanish, twice a day ROGUER Keppra 02/11/2013 - Hx Tablets 500mg 30tabs 1 po at 345. Clinton Pearce. 06/16/2013 bedtime 91 Pablo Yadav Spiriva 10/27/2012 - Hx Capsules 18mcg 30caps 1 780. [place] Handihaler 02/25/2013 inhalation 4 Pachikar irineo mckenzie M.D. Prednisone 09/28/2012 - Hx Tablets 10mg 30tabs 5tabx 493. Tanvir 10/27/2012 2days,4 90 Dominikikar [id number] Pablo mckenzie [id number], [id number], 1tabxday. Topamax 09/07/2012 - Hx Tablets 25mg 30tabs 1 tab PO hs 346. [place] 09/28/2012 92 Bunny mckenzie M.D. Symbicort 07/20/2012 - Hx Aerosol 80-4.5mcg/A 1units 2 puff 493. Yudi 02/25/2013 ct inhaled bid 90 Pablo Carlin Sertraline HCL 07/20/2012 - Hx Tablets 50mg 90tabs Take One Yudi 06/16/2013 Tablet By Richy Carlin One M.DBryant Time Daily Lamotrigine - Hx Tablets 200mg 60tabs 1 po tid Unknown 07/21/2012 Loratadine - Hx Tablets 10mg 30tabs 1 po qd as Dinorah 08/09/2014 needed Pablo Lorenzo Nadolol - Hx Tablets 40mg 90tabs 1/2 tablet Yudi 09/07/2012 po qd Pablo Carlin Sertraline HCL - Hx Tablets 25mg 90tabs 1 po qd Unknown 07/20/2012 Ventolin HFA - Hx Aerosol 108(90Base) 1units 2 puffs po Unknown 07/20/2012 mcg/ac qid prn Symbicort - Hx Aerosol 2units 1 puff Unknown 07/20/2012 inhaled bid Vicodin - Hx Tablets 5-500mg 40tabs 1-2 po q Unknown 07/20/2012 8hrs prn pain Ventolin HFA - Hx Aerosol 108(90Base) 1units 2 puffs po Unknown 03/13/2016 mcg/ac qid prn Zithromax - Hx Tablets 250mg 6tabs 1 [...] 18mcg 90caps 1 Jeremiah Handihaler 01/13/2015 inhalation Spanish, by mouth ROGUER every morning Proair HFA - Hx Aerosol 108(90Base) 1units 2 puffs by Unknown 10/11/2014 mcg/Act mouth every 4 hours as needed Vitamin D3 - Hx Capsules [id number] 8caps 1 by mouth Unknown Maximum Strength 12/11/2014 every week Lorazepam - Hx Tablets 0.5mg 15tabs 1 by mouth Unknown 10/11/2014 tid as needed Cetirizine HCL - Hx Tablets 10mg 1 by mouth Unknown 08/17/2014 every day Omeprazole - Hx Capsules DR 40mg 30caps 1 by mouth Jeremiah 02/02/2015 every day Spanish, ROGUER Citalopram - Hx Tablets 20mg 30tabs 1 by mouth Unknown Hydrobromide 08/22/2014 every day Oxymetazoline HCL - Hx Solution 0.05% Unknown 10/11/2014 Hydroxyzine HCL - Hx Tablets 50mg 30tabs 1 po bid if Jeremiah 11/13/2015 needed Spanish, ROGUER Lorazepam - Hx Tablets 1mg 1 po q 8 Unknown 06/13/2015 to 12 hours as needed Citalopram - Hx Tablets 20mg Unknown Hydrobromide 03/02/2015 Acetaminophen - Hx Tablets 500mg 240tabs 2 tablets Jeremiah 10/29/2016 every 6-8 Spanish, hours as ROGUER needed for pain Dulera - Hx Aerosol 100-5mcg/Ac 2 puff Unknown 06/13/2015 t twice a day Zithromax - Hx Tablets 500mg one by Unknown 08/14/2015 mouth one per day Keflex - Hx Capsules 500mg 1 by mouth Unknown 10/11/2015 three times a day Robitussin Chest - Hx Syrup 100mg/5ML 118ml 1-2 Ashvin-Fern Congestion 10/10/2016 teaspoon at l D. night as Kailey, needed M.D.,FAC P Ra Motion - Hx Tablets 25mg 30tabs take 1/2 Jeremiah Sickness Relief 04/08/2017 tab by Spanish, mouth three ROGUER times daily if needed for vertigo Nitrofurantoin - Hx Capsules 50mg Unknown Macrocrystal 07/17/2017 Phenazopyridine - Hx Tablets 100mg Unknown HCL 07/20/2017 Methocarbamol - Hx Tablets 500mg Take One Unknown 07/17/2017 Tablet By Mouth Three Times A Day as Needed For Spasms Meloxicam - Hx Tablets 7.5mg Take One Unknown 07/17/2017 Tablet By Mouth Twice A Day Azo Urinary Tract - Hx Tablets 162-162.5mg prn Unknown Defense 07/20/2017 Levothyroxine - Hx Tablets 75mcg Take One Unknown Sodium 09/02/2018 Tablet By Mouth Every Day Immunizations CPT Code Status Date Vaccine Reaction Lot # [id number] Given 08/19/2018 Influenza Virus Vaccine, [id number] Quadrivalent, Split, Preservative Free 35971 Given 07/28/2018 Influenza Virus Vaccine, Quadrivalent, Split, Preservative Free 29981 Given 07/28/2018 Influenza Virus Vaccine, Quadrivalent, Split, Preservative Free 07425 Given 01/21/2018 Influenza Virus Vaccine, [id number] Quadrivalent, Split, Preservative Free 38619 Given 10/16/2017 Pneumonia Vaccine no reaction, pt [id number] tolerated well Q2035 Given 10/16/2015 Afluria Vaccine [id number] Given 08/20/2012 Tdap - [id number] Tetanus/Diptheria/Acellula r Pertussis Q2038 Given 07/20/2012 Fluzone Vaccine [id number] Ordered 07/04/2016 Afluria Vaccine Vital Signs Date Vital Result Comment 10/21/2018 1:07pm Height 67 inches 5'7" Weight 340.00 lb Heart Rate 86 /min BP Systolic 118 mmHg BP Diastolic 82 mmHg Body Temperature 98.0 F O2 % BldC Oximetry 98 % BMI (Body Mass Index) 53.2 kg/m2 08/19/2018 12:52pm Height 67 inches 5'7" Weight 344.00 lb Heart Rate 86 /min BP Systolic Sitting 128 mmHg BP Diastolic Sitting 82 mmHg Body Temperature 98.1 F O2 % BldC Oximetry 99 % BMI (Body Mass Index) 53.9 kg/m2 07/15/2018 1:16pm Height 67 inches 5'7" Weight 348.00 lb Heart Rate 85 /min BP Systolic 124 mmHg BP Diastolic 82 mmHg O2 % BldC Oximetry 98 % BMI (Body Mass Index) 54.5 kg/m2 05/08/2018 1:35pm Height 68 inches 5'8" Weight 339.00 lb Heart Rate 91 /min BP Systolic 130 mmHg BP Diastolic 78 mmHg O2 % BldC Oximetry 97 % BMI (Body Mass Index) 51.5 kg/m2 04/22/2018 10:47am Height 68 inches 5'8" Weight 355.25 lb Heart Rate 87 /min BP Systolic 138 mmHg BP Diastolic 80 mmHg O2 % BldC Oximetry 97 % BMI (Body Mass Index) 54.0 kg/m2 03/10/2018 2:27pm Height 68 inches 5'8" Weight 344.00 lb Heart Rate 96 /min BP Systolic 140 mmHg BP Diastolic 90 mmHg O2 % BldC Oximetry 97 % BMI (Body Mass Index) 52.3 kg/m2 01/21/2018 9:07am Weight 352.00 lb Heart Rate 108 /min BP Systolic Sitting 128 mmHg BP Diastolic Sitting 86 mmHg Body Temperature 96.8 F O2 % BldC Oximetry 99 % 01/15/2018 1:35pm Weight 343.00 lb Heart Rate 87 /min BP Systolic 137 mmHg BP Diastolic 82 mmHg Body Temperature 98.1 F O2 % BldC Oximetry 97 % 01/02/2018 3:16pm Height 68 inches 5'8" Weight 343.00 lb Heart Rate 82 /min BP Systolic Sitting 132 mmHg BP Diastolic Sitting 88 mmHg Respiratory Rate 16 /min BMI (Body Mass Index) 52.1 kg/m2 10/16/2017 1:25pm Height 68 inches 5'8" Weight 349.12 lb Heart Rate 95 /min BP Systolic Sitting 122 mmHg BP Diastolic Sitting 78 mmHg Body Temperature 97.0 F O2 % BldC Oximetry 97 % BMI (Body Mass Index) 53.1 kg/m2 09/12/2017 9:22am Height 68 inches 5'8" Weight 338.00 lb Heart Rate 70 /min BP Systolic 108 mmHg BP Diastolic 80 mmHg BMI (Body Mass Index) 51.4 kg/m2 09/09/2017 9:43am Height 68 inches 5'8" Weight 336.00 lb Heart Rate 80 /min BP Systolic 125 mmHg BP Diastolic 70 mmHg Respiratory Rate 14 /min O2 % BldC Oximetry 98 % BMI (Body Mass Index) 51.1 kg/m2 07/21/2017 10:40am Height 68 inches 5'8" Weight 336.00 lb Heart Rate 84 /min BP Systolic Sitting 128 mmHg BP Diastolic Sitting 80 mmHg Respiratory Rate 14 /min O2 % BldC Oximetry 95 % BMI (Body Mass Index) 51.1 kg/m2 Neck Circumference in inches 16.5 07/18/2017 3:05pm Height 68 inches 5'8" Weight 331.00 lb Heart Rate 74 /min BP Systolic 134 mmHg BP Diastolic 74 mmHg BMI (Body Mass Index) 50.3 kg/m2 07/17/2017 1:11pm Weight 331.00 lb Heart Rate 92 /min BP Systolic Sitting 142 mmHg BP Diastolic Sitting 80 mmHg Body Temperature 98.0 F O2 % BldC Oximetry 98 % 06/18/2017 1:28pm Weight 338.00 lb Heart Rate 86 /min BP Systolic Sitting 120 mmHg BP Diastolic Sitting 80 mmHg Body Temperature 98.4 F O2 % BldC Oximetry 98 % 05/15/2017 2:01pm Height 68 inches 5'8" Weight 338.25 lb Heart Rate 99 /min BP Systolic 122 mmHg BP Diastolic 74 mmHg Body Temperature 98.2 F O2 % BldC Oximetry 97 % BMI (Body Mass Index) 51.4 kg/m2 04/18/2017 10:17am Height 68 inches 5'8" Weight 318.00 lb Heart Rate 74 /min BP Systolic Sitting 122 mmHg BP Diastolic Sitting 80 mmHg Respiratory Rate 17 /min BMI (Body Mass Index) 48.3 kg/m2 04/08/2017 11:02am Height 68 inches 5'8" Weight 317.25 lb Heart Rate 80 /min BP Systolic 118 mmHg BP Diastolic 78 mmHg Body Temperature 97.5 F O2 % BldC Oximetry 98 % BMI (Body Mass Index) 48.2 kg/m2 04/02/2017 2:13pm Weight 318.00 lb Heart Rate 72 /min BP Systolic Sitting 124 mmHg BP Diastolic Sitting 78 mmHg Respiratory Rate 15 /min Body Temperature 98.0 F O2 % BldC Oximetry 97 % 03/25/2017 3:38pm Height 68 inches 5'8" Weight 316.00 lb Heart Rate 80 /min BP Systolic 124 mmHg BP Diastolic 82 mmHg Body Temperature 98.0 F O2 % BldC Oximetry 99 % BMI (Body Mass Index) 48.0 kg/m2 10/31/2016 1:48pm Weight 327.38 lb Heart Rate 65 /min BP Systolic Sitting 144 mmHg BP Diastolic Sitting 90 mmHg Body Temperature 97.9 F O2 % BldC Oximetry 98 % 10/29/2016 10:52am Weight 329.50 lb Heart Rate 72 /min BP Systolic Sitting 138 mmHg BP Diastolic Sitting 84 mmHg Body Temperature 97.7 F O2 % BldC Oximetry 99 % 10/17/2016 10:06am Height 68 inches 5'8" Weight 336.00 lb Heart Rate 84 /min BP Systolic Sitting 142 mmHg BP Diastolic Sitting 76 mmHg BMI (Body Mass Index) 51.1 kg/m2 10/07/2016 10:39am Height 68 inches 5'8" Weight 331.00 lb Heart Rate 92 /min BP Systolic Sitting 136 mmHg BP Diastolic Sitting 78 mmHg Body Temperature 99.1 F O2 % BldC Oximetry 97 % BMI (Body Mass Index) 50.3 kg/m2 05/10/2016 11:01am Height 68 inches 5'8" Weight 330.00 lb Heart Rate 76 /min BP Systolic Sitting 106 mmHg BP Diastolic Sitting 80 mmHg Respiratory Rate 14 /min BMI (Body Mass Index) 50.2 kg/m2 05/03/2016 2:08pm Heart Rate 100 /min Recheck 88 BP Systolic Sitting 122 mmHg BP Diastolic Sitting 66 mmHg Body Temperature 99.0 F O2 % BldC Oximetry 98 % 03/26/2016 3:04pm Height 68 inches 5'8" Weight 334.00 lb Heart Rate 96 /min BP Systolic Sitting 138 mmHg BP Diastolic Sitting 88 mmHg Body Temperature 99.3 F O2 % BldC Oximetry 98 % BMI (Body Mass Index) 50.8 kg/m2 02/22/2016 1:07pm Height 68 inches 5'8" Weight 338.00 lb Heart Rate 84 /min BP Systolic Sitting 118 mmHg BP Diastolic Sitting 88 mmHg O2 % BldC Oximetry 98 % BMI (Body Mass Index) 51.4 kg/m2 01/24/2016 2:58pm Height 68 inches 5'8" Weight 336.50 lb Heart Rate 94 /min BP Systolic Sitting 114 mmHg BP Diastolic Sitting 78 mmHg Body Temperature 98.3 F O2 % BldC Oximetry 96 % BMI (Body Mass Index) 51.2 kg/m2 01/01/2016 2:07pm Height 68 inches 5'8" Weight 332.25 lb Heart Rate 78 /min BP Systolic Sitting 122 mmHg BP Diastolic Sitting 76 mmHg Body Temperature 99.2 F O2 % BldC Oximetry 98 % BMI (Body Mass Index) 50.5 kg/m2 12/20/2015 1:52pm Height 68 inches 5'8" Weight 338.50 lb Heart Rate 109 /min Recheck 96 BP Systolic Sitting 128 mmHg BP Diastolic Sitting 78 mmHg Body Temperature 98.1 F O2 % BldC Oximetry 99 % BMI (Body Mass Index) 51.5 kg/m2 12/18/2015 12:42pm Height 68 inches 5'8" Weight 336.25 lb Heart Rate 105 /min BP Systolic Sitting 118 mmHg BP Diastolic Sitting 78 mmHg Body Temperature 98.5 F O2 % BldC Oximetry 98 % BMI (Body Mass Index) 51.1 kg/m2 11/14/2015 3:16pm Height 68 inches 5'8" Weight 313.00 lb Heart Rate 76 /min BP Systolic Sitting 132 mmHg BP Diastolic Sitting 82 mmHg Respiratory Rate 16 /min BMI (Body Mass Index) 47.6 kg/m2 10/30/2015 3:11pm Height 68 inches 5'8" Weight 326.25 lb Heart Rate 94 /min BP Systolic Sitting 124 mmHg BP Diastolic Sitting 82 mmHg Body Temperature 97.7 F O2 % BldC Oximetry 98 % BMI (Body Mass Index) 49.6 kg/m2 10/11/2015 9:55am Height 68 inches 5'8" Weight 323.50 lb Heart Rate 94 /min BP Systolic Sitting 132 mmHg BP Diastolic Sitting 78 mmHg Body Temperature 98.6 F O2 % BldC Oximetry 98 % BMI (Body Mass Index) 49.2 kg/m2 09/13/2015 4:06pm Height 68 inches 5'8" Weight 320.25 lb Heart Rate 95 /min BP Systolic Sitting 124 mmHg BP Diastolic Sitting 78 mmHg Body Temperature 98.1 F O2 % BldC Oximetry 98 % BMI (Body Mass Index) 48.7 kg/m2 08/14/2015 11:30am Height 68 inches 5'8" Weight 325.25 lb Heart Rate 90 /min BP Systolic Sitting 124 mmHg BP Diastolic Sitting 78 mmHg Body Temperature 98.0 F O2 % BldC Oximetry 98 % BMI (Body Mass Index) 49.4 kg/m2 06/22/2015 2:33pm Height 68 inches 5'8" Weight 320.00 lb Heart Rate 102 /min BP Systolic Sitting 120 mmHg BP Diastolic Sitting 78 mmHg Body Temperature 98.2 F O2 % BldC Oximetry 98 % BMI (Body Mass Index) 48.7 kg/m2 06/13/2015 1:46pm Height 68 inches 5'8" Weight 317.00 lb Heart Rate 87 /min BP Systolic Sitting 122 mmHg BP Diastolic Sitting 62 mmHg Body Temperature 98.4 F O2 % BldC Oximetry 98 % BMI (Body Mass Index) 48.2 kg/m2 05/16/2015 10:31am Height 68 inches 5'8" Weight 324.00 lb Heart Rate 99 /min BP Systolic Sitting 118 mmHg BP Diastolic Sitting 68 mmHg Body Temperature 98.2 F O2 % BldC Oximetry 98 % BMI (Body Mass Index) 49.3 kg/m2 05/09/2015 10:40am Weight 315.38 lb Heart Rate 80 /min BP Systolic Sitting 106 mmHg BP Diastolic Sitting 64 mmHg Body Temperature 97.8 F O2 % BldC Oximetry 98 % 03/17/2015 11:09am Weight 322.00 lb Heart Rate 94 /min BP Systolic Sitting 124 mmHg BP Diastolic Sitting 78 mmHg Body Temperature 98.6 F O2 % BldC Oximetry 98 % 03/06/2015 2:32pm Height 68 inches 5'8" Weight 318.00 lb Heart Rate 85 /min BP Systolic Sitting 136 mmHg BP Diastolic Sitting 86 mmHg Body Temperature 98.5 F O2 % BldC Oximetry 98 % BMI (Body Mass Index) 48.3 kg/m2 03/02/2015 1:56pm Height 68 inches 5'8" Weight 321.00 lb Heart Rate 84 /min BP Systolic Sitting 136 mmHg BP Diastolic Sitting 88 mmHg BMI (Body Mass Index) 48.8 kg/m2 02/14/2015 11:37am Height 68 inches 5'8" Weight 321.38 lb Heart Rate 92 /min BP Systolic Sitting 132 mmHg 120/80 BP Diastolic Sitting 90 mmHg 120/80 Body Temperature 98.1 F O2 % BldC Oximetry 98 % BMI (Body Mass Index) 48.9 kg/m2 02/02/2015 2:58pm Weight 316.25 lb Heart Rate 91 /min BP Systolic Sitting 114 mmHg BP Diastolic Sitting 74 mmHg Body Temperature 98.9 F O2 % BldC Oximetry 97 % 01/26/2015 4:26pm Height 68 inches 5'8" Weight 321.38 lb Heart Rate 100 /min BP Systolic Sitting 128 mmHg BP Diastolic Sitting 80 mmHg O2 % BldC Oximetry 99 % BMI (Body Mass Index) 48.9 kg/m2 01/16/2015 2:56pm Weight 317.25 lb Heart Rate 95 /min BP Systolic Sitting 128 mmHg BP Diastolic Sitting 80 mmHg Body Temperature 98.8 F O2 % BldC Oximetry 98 % 01/13/2015 1:18pm Height 68 inches 5'8" Weight 319.00 lb Heart Rate 92 /min BP Systolic Sitting 130 mmHg BP Diastolic Sitting 80 mmHg O2 % BldC Oximetry 98 % BMI (Body Mass Index) 48.5 kg/m2 12/15/2014 2:29pm Height 68 inches 5'8" Weight 309.00 lb Heart Rate 86 /min BP Systolic Sitting 130 mmHg BP Diastolic Sitting 90 mmHg BMI (Body Mass Index) 47.0 kg/m2 12/07/2014 2:03pm Weight 309.25 lb Heart Rate 81 /min BP Systolic Sitting 154 mmHg BP Diastolic Sitting 92 mmHg O2 % BldC Oximetry 98 % 10/11/2014 1:20pm Weight 303.50 lb Heart Rate 74 /min BP Systolic Sitting 112 mmHg BP Diastolic Sitting 80 mmHg Body Temperature 99.6 F O2 % BldC Oximetry 98 % 09/26/2014 10:49am Weight 310.25 lb Heart Rate 80 /min BP Systolic Sitting 111 mmHg BP Diastolic Sitting 68 mmHg Respiratory Rate 16 /min Body Temperature 97.5 F 08/30/2014 1:21pm Height 67.25 inches 5'7.25" Weight 303.50 lb Heart Rate 96 /min BP Systolic Sitting 137 mmHg auto cuff BP Diastolic Sitting 70 mmHg auto cuff Body Temperature 98.3 F BMI (Body Mass Index) 47.2 kg/m2 08/22/2014 11:25am Height 68 inches 5'8" Weight 308.00 lb Heart Rate 98 /min BP Systolic Sitting 130 mmHg BP Diastolic Sitting 76 mmHg Respiratory Rate 16 /min Body Temperature 98.8 F BMI (Body Mass Index) 46.8 kg/m2 08/18/2014 9:40am Height 68 inches 5'8" Weight 298.00 lb Heart Rate 97 /min BP Systolic Sitting 120 mmHg BP Diastolic Sitting 82 mmHg BMI (Body Mass Index) 45.3 kg/m2 08/09/2014 9:40am Weight 298.00 lb Heart Rate 90 /min BP Systolic Sitting 132 mmHg BP Diastolic Sitting 82 mmHg 06/16/2013 3:30pm Heart Rate 89 /min BP Systolic Sitting 132 mmHg BP Diastolic Sitting 78 mmHg Respiratory Rate 16 /min 02/25/2013 11:49am Weight 296.00 lb Heart Rate 80 /min BP Systolic Sitting 126 mmHg BP Diastolic Sitting 70 mmHg 02/17/2013 11:18am Heart Rate 63 /min BP Systolic Sitting 120 mmHg BP Diastolic Sitting 64 mmHg Respiratory Rate 16 /min 02/11/2013 1:05pm Weight 289.25 lb Heart Rate 75 /min BP Systolic Sitting 134 mmHg BP Diastolic Sitting 75 mmHg Body Temperature 98.6 F 10/27/2012 11:14am Height 67.25 inches 5'7.25" Weight 278.00 lb Heart Rate 75 /min BP Systolic Sitting 114 mmHg BP Diastolic Sitting 76 mmHg BMI (Body Mass Index) 43.2 kg/m2 09/28/2012 11:42am Height 67.25 inches 5'7.25" Weight 256.00 lb Heart Rate 73 /min BP Systolic Sitting 108 mmHg BP Diastolic Sitting 82 mmHg Body Temperature 97.6 F O2 % BldC Oximetry 99 % BMI (Body Mass Index) 39.8 kg/m2 09/07/2012 2:40pm Height 67.25 inches 5'7.25" Weight 249.00 lb Heart Rate 60 /min BP Systolic Sitting 120 mmHg BP Diastolic Sitting 68 mmHg BMI (Body Mass Index) 38.7 kg/m2 08/31/2012 11:33am Height 66 inches 5'6" per pt Weight 254.00 lb Heart Rate 56 /min BP Systolic Sitting 110 mmHg BP Diastolic Sitting 68 mmHg BMI (Body Mass Index) 41.0 kg/m2 08/20/2012 12:13pm Height 66 inches 5'6" per pt Weight 253.00 lb Heart Rate 74 /min BP Systolic Sitting 130 mmHg BP Diastolic Sitting 66 mmHg BMI (Body Mass Index) 40.8 kg/m2 07/20/2012 11:53am Height 66 inches 5'6" per pt Weight 250.00 lb per pt Heart Rate 78 /min BP Systolic Sitting 162 mmHg BP Diastolic Sitting 78 mmHg BMI (Body Mass Index) 40.3 kg/m2 Results Test Date Facility Test Result H/L Range Note Iron & Iron Binding 06/25/2018 [facility] Iron 52 g/dL N 50- [address] [place] [address] [phone] Unsaturated Iron Binding 280 g/dL Total Iron Binding Capacity 332 g/dL N 250-450 Transferrin 237 mg/dL N 203-362 % Iron Saturation 16 % N 15-55 Laboratory test 06/25/2018 [facility] TSH (Thyroid 3.56 mcIU/mL N 0.34-5.[address] Stim Horm) [place] [address] [phone] CBC Auto Diff 06/25/2018 [facility] White Blood 6.9 10^3/uL N 3.5-10.[address] [place] [address] [phone] Red Blood Count 3.80 10^6/uL Low 4.00-5.40 Hemoglobin 11.8 g/dL Low 12.0-16.0 Hematocrit 35 % N 35-47 Mean Corpuscular Volume 91 fL N 80-97 Mean Corpuscular Hemoglobin 31 pg N 27-31 Mean Corpuscular HGB Conc 34 g/dL N 31-36 Red Cell Distribution Width 17 % High 10.5-15 Platelet Count 286 10^3/uL N 150-450 Mean Platelet Volume 7.7 um3 N 7.4-10.4 Abs Neutrophils 4.2 10^3/uL N 1.5-7.7 Abs Lymphocytes 2.0 10^3/uL N 1.0-4.8 Abs Monocytes 0.5 10^3/uL N 0-0.8 Abs Eosinophils 0.2 10^3/uL N 0-0.6 Abs Basophils 0.1 10^3/uL N 0-0.2 Abs Nucleated RBC 0 10^3/uL Granulocyte % 61.0 % N 38-83 Lymphocyte % 28.3 % N 25-47 Monocyte % 6.6 % N 0-7 Eosinophil % 3.1 % N 0-6 Basophil % 1.0 % N 0-2 Nucleated Red Blood Cells % 0.1 Vitamin B12 And 05/01/2018 [facility] Vitamin B12 537 pg/mL N 180-914 1 Folate Serum [address] [place] [address] [phone] Folic Acid (Folate) 6.33 ng/mL >3.99 Laboratory test 05/01/2018 [facility] Ferritin 14.5 ng/mL N 11 -[address] [place] [address] [phone] CBC Auto Diff 05/01/2018 [facility] White Blood 4.7 10^3/uL N 3.5-10.[address] [place] [address] [phone] Red Blood Count 3.74 10^6/uL Low 4.00-5.40 Hemoglobin 11.1 g/dL Low 12.0-16.0 Hematocrit 34 % Low 35-47 Mean Corpuscular Volume 91 fL N 80-97 Mean Corpuscular Hemoglobin 30 pg N 27-31 Mean Corpuscular HGB Conc 33 g/dL N 31-36 Red Cell Distribution Width 15 % N 10.5-15 Platelet Count 305 10^3/uL N 150-450 Mean Platelet Volume 7.5 um3 N 7.4-10.4 Abs Neutrophils 2.9 10^3/uL N 1.5-7.7 Abs Lymphocytes 1.2 10^3/uL N 1.0-4.8 Abs Monocytes 0.4 10^3/uL N 0-0.8 Abs Eosinophils 0.2 10^3/uL N 0-0.6 Abs Basophils 0 10^3/uL N 0-0.2 Abs Nucleated RBC 0 10^3/uL Granulocyte % 62.2 % N 38-83 Lymphocyte % 25.1 % N 25-47 Monocyte % 8.7 % High 0-7 Eosinophil % 3.3 % N 0-6 Basophil % 0.7 % N 0-2 Nucleated Red Blood Cells % 0 Lipid Profile 05/01/2018 [facility] Triglycerides 221 mg/dL 2 (Trig/Chol/HDL) [address] [place], [place] [id number] [phone] Cholesterol 171 mg/dL 3 HDL Cholesterol 26.6 mg/dL 4 LDL Cholesterol 100 mg/dL 5 Iron & Iron Binding 05/01/2018 [facility] Iron 32 g/dL Low 50-212 Capacity [address] [place], [place] [id number] [phone] Unsaturated Iron Binding 298 g/dL Total Iron Binding Capacity 330 g/dL N 250-450 Transferrin 236 mg/dL N 203-362 % Iron Saturation 10 % Low 15-55 Laboratory 05/01/2018 [facility] TSH (Thyroid 6.43 High 0.34- 5.60 [address] Stim Horm) mcIU/mL [place], [place] [id number] [phone] Lipid Profile 04/22/2018 [facility] Triglycerides 177 mg/dL 7 (Trig/Chol/HDL [address] ) [place], [place] [id number] [phone] Cholesterol 172 mg/dL 8 HDL Cholesterol 34.1 mg/dL 9 LDL Cholesterol 103 mg/dL 10 Laboratory test 04/22/2018 [facility] TSH (Thyroid 4.16 mcIU/mL N 0.34-5.[address] Stim Horm) [place] [address] [phone] CBC Auto Diff 04/22/2018 [facility] White Blood 7.5 10^3/uL N 3.5-10.[address] [place] [address] [phone] Red Blood Count 3.55 10^6/uL Low 4.00-5.40 Hemoglobin 10.6 g/dL Low 12.0-16.0 Hematocrit 32 % Low 35-47 Mean Corpuscular Volume 90 fL N 80-97 Mean Corpuscular Hemoglobin 30 pg N 27-31 Mean Corpuscular HGB Conc 33 g/dL N 31-36 Red Cell Distribution Width 15 % N 10.5-15 Platelet Count 313 10^3/uL N 150-450 Mean Platelet Volume 7.0 um3 Low 7.4-10.4 Abs Neutrophils 4.9 10^3/uL N 1.5-7.7 Abs Lymphocytes 1.8 10^3/uL N 1.0-4.8 Abs Monocytes 0.4 10^3/uL N 0-0.8 Abs Eosinophils 0.2 10^3/uL N 0-0.6 Abs Basophils 0.1 10^3/uL N 0-0.2 Abs Nucleated RBC 0 10^3/uL Granulocyte % 65.8 % N 38-83 Lymphocyte % 24.5 % Low 25-47 Monocyte % 5.9 % N 0-7 Eosinophil % 2.9 % N 0-6 Basophil % 0.9 % N 0-2 Nucleated Red Blood Cells % 0 Laboratory 04/10/2018 [facility] Rapid Strep Negative Negative [address] [place] [address] [phone] Laboratory 04/10/2018 [facility] Rapid Strep A SEE RESULT [address] [place] [address] [phone] Laboratory 04/02/2018 [facility] Lamotrigine 15.9 g/mL 2.5 - 15.0 [address] (Lamictal) [place] [address] [phone] Comp Metabolic 04/02/2018 [facility] Sodium 137 mmol/L Low 139 -145 Panel [address] [place] [address] [phone] Potassium 4.0 mmol/L N 3.5-5.0 Chloride 104 mmol/L N 101-111 Co2 Carbon Dioxide 23 mmol/L N 22-32 Anion Gap 10 mmol/L N 2-11 Glucose 116 mg/dL High 70-100 Blood Urea Nitrogen 9 mg/dL N 6-24 Creatinine 0.78 mg/dL N 0.51-0.95 BUN/Creatinine Ratio 11.5 N 8-20 Calcium 9.6 mg/dL N 8.6-10.3 Total Protein 7.2 g/dL N 6.4-8.9 Albumin 4.3 g/dL N 3.2-5.2 Globulin 2.9 g/dL N 2-4 Albumin/Globulin Ratio 1.5 N 1-3 Total Bilirubin 0.70 mg/dL N 0.2-1.0 Alkaline Phosphatase 74 U/L N 34-104 Alt 20 U/L N 7-52 Ast 27 U/L N 13-39 Egfr Non- 83.6 >60 Egfr 107.5 >60 14 Laboratory test 03/10/2018 [facility] Lamotrigine 13.1 g/mL 2.5 - [address] [place] [address] (Lamictal) 15.0 [place] [address] [phone] Laboratory test 08/25/2017 [facility] TSH (Thyroid 1.89 N 0.34 -5.[address] [place] [address] Stim Horm) mcIU/mL 0 [place] [address] [phone] Comp Metabolic 07/22/2017 [facility] Sodium 137 mmol/L N 133- 145 Panel [address] [place] [address] [phone] Potassium 4.1 mmol/L N 3.5-5.0 Chloride 105 mmol/L N 101-111 Co2 Carbon Dioxide 23 mmol/L N 22-32 Anion Gap 9 mmol/L N 2-11 Glucose 94 mg/dL N 70-100 Blood Urea Nitrogen 13 mg/dL N 6-24 Creatinine 0.89 mg/dL N 0.51-0.95 BUN/Creatinine Ratio 14.6 N 8-20 Calcium 9.5 mg/dL N 8.6-10.3 Total Protein 6.6 g/dL N 6.4-8.9 Albumin 4.0 g/dL N 3.2-5.2 Globulin 2.6 g/dL N 2-4 Albumin/Globulin Ratio 1.5 N 1-3 Total Bilirubin 0.60 mg/dL N 0.2-1.0 Alkaline Phosphatase 68 U/L N 34-104 Alt 11 U/L N 7-52 Ast 14 U/L N 13-39 Egfr Non- 72.2 N >60 Egfr 92.8 N >60 16 Laboratory test 07/22/2017 [facility] Hemoglobin A1c 5.2 % N Less [address] (Glyco HGB) than 6.0 [place] [address] [phone] Urine Culture And 06/18/2017 [facility] Urine Culture SEE RESULT [address] [place] [address] [phone] Ua Routine 06/18/2017 [facility] Ua Specific 1.015 [place] Ua PH 6 Ua Color martín Ua Appera cloudy Ua WBC trace Ua Protein trace Ua Glucose neg Ua Ketones neg Ua Bilirubin neg Ua Urobilinogen neg Ua Nitrite neg Ua Occult Blood large Laboratory test 04/08/2017 [facility] Thyroglobulin AB <1.8 IU/ mL N <4.[address] [place] [address] [phone] Thyroperoxidase AB 315.57 IU/mL High <9 Free T4 (Free Thyroxine) 0.67 ng/dL N 0.61-1.12 TSH (Thyroid Stim Horm) 4.16 mcIU/mL N 0.34-5.60 Urine Culture And 04/04/2017 [facility] Urine Culture SEE RESULT [address] [place] [address] [phone] Laboratory test 04/04/2017 [facility] Magnesium 1.8 mg/dL Low 1.9-[address] [place] [address] [phone] Troponin-I (TnI) 0.00 ng/mL N <0.04 21 TSH (Thyroid Stim Horm) 6.69 mcIU/mL High 0.34-5.60 Urinalysis Profile 04/04/2017 [facility] Urine Color Yellow N [address] [place] [address] [phone] Urine Appearance Cloudy N Urine Specific [place] 1.019 N 1.010-1.030 Urine pH 7.0 N 5-9 Urine Urobilinogen Negative N Negative Urine Ketones Negative N Negative Urine Protein Negative N Negative Urine Leukocytes 3+ Abnormal Negative Urine Blood 2+ Abnormal Negative Urine Nitrite Negative N Negative Urine Bilirubin Negative N Negative Urine Glucose Negative N Negative Urine White Blood Cell 2+(11-20/hpf) Abnormal Absent Urine Red Blood Cell 2+(6-10/hpf) Abnormal Absent Urine Bacteria Absent N Absent Urine Squamous Epithelial Cell Present Abnormal Absent Comp Metabolic Panel 04/04/2017 [facility] Sodium 138 mmol/L N 133-[address] [place] [address] [phone] Potassium 3.7 mmol/L N 3.5-5.0 Chloride 107 mmol/L N 101-111 Co2 Carbon Dioxide 24 mmol/L N 22-32 Anion Gap 7 mmol/L N 2-11 Glucose 118 mg/dL High 70-100 Blood Urea Nitrogen 10 mg/dL N 6-24 Creatinine 0.76 mg/dL N 0.51-0.95 BUN/Creatinine Ratio 13.2 N 8-20 Calcium 8.8 mg/dL N 8.6-10.3 Total Protein 6.9 g/dL N 6.4-8.9 Albumin 3.9 g/dL N 3.2-5.2 Globulin 3.0 g/dL N 2-4 Albumin/Globulin Ratio 1.3 N 1-3 Total Bilirubin 0.40 mg/dL N 0.2-1.0 Alkaline Phosphatase 75 U/L N 34-104 Alt 11 U/L N 7-52 Ast 12 U/L Low 13-39 Egfr Non- 86.6 N >60 Egfr 111.4 N >60 22 CBC Auto Diff 04/04/2017 [facility] White Blood 8.2 10^3/uL N 3.5-10.[address] [place] [address] [phone] Red Blood Count 3.94 10^6/uL Low 4.0-5.4 Hemoglobin 12.3 g/dL N 12.0-16.0 Hematocrit 37 % N 35-47 Mean Corpuscular Volume 94 fL N 80-97 Mean Corpuscular Hemoglobin 31 pg N 27-31 Mean Corpuscular HGB Conc 33 g/dL N 31-36 Red Cell Distribution Width 14 % N 10.5-15 Platelet Count 309 10^3/uL N 150-450 Mean Platelet Volume 7 um3 Low 7.4-10.4 Abs Neutrophils 6.0 10^3/uL N 1.5-7.7 Abs Lymphocytes 1.4 10^3/uL N 1.0-4.8 Abs Monocytes 0.5 10^3/uL N 0-0.8 Abs Eosinophils 0.2 10^3/uL N 0-0.6 Abs Basophils 0.1 10^3/uL N 0-0.2 Abs Nucleated RBC 0 10^3/uL N Granulocyte % 72.9 % N 38-83 Lymphocyte % 17.5 % Low 25-47 Monocyte % 6.1 % N 1-9 Eosinophil % 2.7 % N 0-6 Basophil % 0.8 % N 0-2 Nucleated Red Blood Cells % 0 N Laboratory test 04/04/2017 [facility] Rapid Strep Negative N Negative 23 finding [address] [place] [address] [phone] Laboratory test 04/04/2017 [facility] Monospot Negative N Negative finding [address] [place] [address] [phone] Laboratory test 04/04/2017 [facility] Lactic Acid 1.7 mmol/L N 0.5-2.0 24 finding [address] [place] [address] [phone] Rapid Strep A SEE RESULT BELOW 25 Comp Metabolic Panel 10/02/2016 [facility] Sodium 136 mmol/L N 133-145 [address] [place] [address] [phone] Potassium 3.8 mmol/L N 3.5-5.0 Chloride 108 mmol/L N 101-111 Co2 Carbon Dioxide 21 mmol/L Low 22-32 Anion Gap 7 mmol/L N 2-11 Glucose 143 mg/dL High 70-100 Blood Urea Nitrogen 10 mg/dL N 6-24 Creatinine 0.87 mg/dL N 0.51-0.95 BUN/Creatinine Ratio 11.5 N 8-20 Calcium 9.0 mg/dL N 8.6-10.3 Total Protein 6.9 g/dL N 6.4-8.9 Albumin 3.8 g/dL N 3.2-5.2 Globulin 3.1 g/dL N 2-4 Albumin/Globulin Ratio 1.2 N 1-3 Total Bilirubin 0.40 mg/dL N 0.2-1.0 Alkaline Phosphatase 77 U/L N 34-104 Alt 17 U/L N 7-52 Ast 21 U/L N 13-39 Egfr Non- 74.5 N >60 Egfr 95.9 N >60 26 CBC Auto Diff 10/02/2016 [facility] White Blood 6.9 10^3/uL N 3.5-10.[address] [place] [address] [phone] Red Blood Count 4.03 10^6/uL N 4.0-5.4 Hemoglobin 12.5 g/dL N 12.0-16.0 Hematocrit 38 % N 35-47 Mean Corpuscular Volume 93 fL N 80-97 Mean Corpuscular Hemoglobin 31 pg N 27-31 Mean Corpuscular HGB Conc 33 g/dL N 31-36 Red Cell Distribution Width 14 % N 10.5-15 Platelet Count 311 10^3/uL N 150-450 Mean Platelet Volume 8 um3 N 7.4-10.4 Abs Neutrophils 4.6 10^3/uL N 1.5-7.7 Abs Lymphocytes 1.7 10^3/uL N 1.0-4.8 Abs Monocytes 0.4 10^3/uL N 0-0.8 Abs Eosinophils 0.1 10^3/uL N 0-0.6 Abs Basophils 0 10^3/uL N 0-0.2 Abs Nucleated RBC 0 10^3/uL N Granulocyte % 67.5 % N 38-83 Lymphocyte % 24.9 % Low 25-47 Monocyte % 5.1 % N 1-9 Eosinophil % 2.0 % N 0-6 Basophil % 0.5 % N 0-2 Nucleated Red Blood Cells % 0 N Laboratory test 10/02/2016 [facility] Lamotrigine 12.6 g/mL N 2.5 - [address] (Lamictal) 15.0 [place] [address] [phone] Topomax (Topiramate) 2.3 g/mL N 28 CBC Auto Diff 03/10/2016 [facility] White Blood 9.6 10^3/uL N 3.5-10.[address] [place] [address] [phone] Red Blood Count 4.58 10^6/uL N 4.0-5.4 Hemoglobin 14.3 g/dL N 12.0-16.0 Hematocrit 44 % N 35-47 Mean Corpuscular Volume 97 fL N 80-97 Mean Corpuscular Hemoglobin 31 pg N 27-31 Mean Corpuscular HGB Conc 32 g/dL N 31-36 Red Cell Distribution Width 14 % N 10.5-15 Platelet Count 367 10^3/uL N 150-450 Mean Platelet Volume 8 um3 N 7.4-10.4 Abs Neutrophils 6.6 10^3/uL N 1.5-7.7 Abs Lymphocytes 2.2 10^3/uL N 1.0-4.8 Abs Monocytes 0.6 10^3/uL N 0-0.8 Abs Eosinophils 0.1 10^3/uL N 0-0.6 Abs Basophils 0.1 10^3/uL N 0-0.2 Abs Nucleated RBC 0 10^3/uL N Granulocyte % 68.8 % N 38-83 Lymphocyte % 22.8 % Low 25-47 Monocyte % 6.0 % N 1-9 Eosinophil % 1.5 % N 0-6 Basophil % 0.9 % N 0-2 Nucleated Red Blood Cells % 0 N Laboratory test 03/10/2016 [facility] Partial 31.7 seconds N 26.0-36.[address] [place] [address] PTT [phone] Lactic Acid 1.3 mmol/L N 0.5-2.0 29 Inr/Protime 03/10/2016 [facility] Inr 1.10 N 0.89-1.[address] [place] [address] [phone] Comp Metabolic Panel 03/10/2016 [facility] Sodium 137 mmol/L N 133-[address] [place] [address] [phone] Potassium 3.7 mmol/L N 3.5-5.0 Chloride 108 mmol/L N 101-111 Co2 Carbon Dioxide 22 mmol/L N 22-32 Anion Gap 7 mmol/L N 2-11 Glucose 117 mg/dL High 70-100 Blood Urea Nitrogen 7 mg/dL N 6-24 Creatinine 0.89 mg/dL N 0.51-0.95 BUN/Creatinine Ratio 7.9 Low 8-20 Calcium 9.6 mg/dL N 8.6-10.3 Total Protein 8.1 g/dL N 6.4-8.9 Albumin 4.8 g/dL N 3.2-5.2 Globulin 3.3 g/dL N 2-4 Albumin/Globulin Ratio 1.5 N 1-3 Total Bilirubin 0.60 mg/dL N 0.2-1.0 Alkaline Phosphatase 85 U/L N 34-104 Alt 27 U/L N 7-52 Ast 30 U/L N 13-39 Egfr Non- 72.6 N >60 Egfr 93.4 N >60 30 CKMB 03/10/2016 [facility] CKMB ng/mL 1.1 ng/mL N 0.6-6.[address] [place] [address] [phone] Laboratory test 03/10/2016 [facility] HCG < 0.60 N [address] mIU/[place] [address] [phone] TSH (Thyroid Stim Horm) 1.40 ?IU/mL N 0.34-5.60 B-Type Natriuretic Peptide BNP 18 pg/mL N 32 Lamotrigine (Lamictal) 14.9 g/mL N 2.5 - 15.0 33 Laboratory test 03/10/2016 [facility] Magnesium 2.2 mg/dL N 1.9-2.[address] [place] [address] [phone] Lipase 8 U/L Low 11.0-82.0 Creatine Kinase(CK) 63 U/L N 10-223 C Reactive Protein 14.41 mg/L High < 5.00 34 Troponin-I (TnI) 0.00 ng/mL N <0.03 35 Laboratory test 02/26/2016 [facility] [facility] Vitamin D 31.3 ng/mL N 30-[address] Total 25(Oh) [place] [address] [phone] CBC Auto Diff 01/01/2016 [facility] White Blood 8.8 10^3/uL N 3.5-10.[address] [place] [address] [phone] Red Blood Count 4.00 10^6/uL N 4.0-5.4 Hemoglobin 13.0 g/dL N 12.0-16.0 Hematocrit 39 % N 35-47 Mean Corpuscular Volume 96 fL N 80-97 Mean Corpuscular Hemoglobin 32 pg High 27-31 Mean Corpuscular HGB Conc 34 g/dL N 31-36 Red Cell Distribution Width 14 % N 10.5-15 Platelet Count 321 10^3/uL N 150-450 Mean Platelet Volume 8 um3 N 7.4-10.4 Abs Neutrophils 6.2 10^3/uL N 1.5-7.7 Abs Lymphocytes 1.9 10^3/uL N 1.0-4.8 Abs Monocytes 0.5 10^3/uL N 0-0.8 Abs Eosinophils 0.1 10^3/uL N 0-0.6 Abs Basophils 0 10^3/uL N 0-0.2 Abs Nucleated RBC 0 10^3/uL N Granulocyte % 70.5 % N 38-83 Lymphocyte % 22.0 % Low 25-47 Monocyte % 5.7 % N 1-9 Eosinophil % 1.3 % N 0-6 Basophil % 0.5 % N 0-2 Nucleated Red Blood Cells % 0 N Basic Metabolic Panel 01/01/2016 [facility] Sodium 138 mmol/L N 133-[address] [place] [address] [phone] Potassium 4.0 mmol/L N 3.5-5.0 Chloride 108 mmol/L N 101-111 Co2 Carbon Dioxide 22 mmol/L N 22-32 Anion Gap 8 mmol/L N 2-11 Glucose 92 mg/dL N 70-100 Blood Urea Nitrogen 9 mg/dL N 6-24 Creatinine 0.75 mg/dL N 0.51-0.95 BUN/Creatinine Ratio 12.0 N 8-20 Calcium 9.2 mg/dL N 8.6-10.3 Egfr Non- 88.5 N >60 Egfr 113.8 N >60 36 Laboratory test 01/01/2016 [facility] Alkaline 78 U/L N 34- [address] [place] [address] [phone] Laboratory test 12/25/2015 [facility] Vitamin D Total 25.9 Low 30-50 [address] 25(Oh) ng/mL [place], [place] [phone] TSH (Thyroid Stim Horm) 4.01 ?IU/mL N 0.34-5.60 38 Lipid Profile 12/25/2015 [facility] Triglycerides 214 mg/dL N 39 (Trig/Chol/HDL) [address] [place], [place] [phone] Cholesterol 177 mg/dL N 40 HDL Cholesterol 37.5 mg/dL N 41 LDL Cholesterol 97 mg/dL N 42 Laboratory test 12/25/2015 [facility] Glucose 98 mg/dL N 70- 100 [address] [place] [address] [phone] Laboratory test 12/20/2015 [facility] Cytology SEE RESULT [address] [place] [address] [phone] HPV Rna Ww/Reflex Genotype Negative N Negative 45 Urinalysis Profile 08/14/2015 [facility] Urine Color Yellow N [address] [place] [address] [phone] Urine Appearance Cloudy N Urine Specific [place] 1.013 N 1.010-1.030 Urine pH 6.0 N 5-9 Urine Urobilinogen Negative N Negative Urine Ketones Negative N Negative Urine Protein Negative N Negative Urine Leukocytes 3+ Abnormal Negative Urine Blood 2+ Abnormal Negative Urine Nitrite Negative N Negative Urine Bilirubin Negative N Negative Urine Glucose Negative N Negative Urine White Blood Cell Trace(0-5/hpf) N Absent Urine Red Blood Cell Trace(0-2/hpf) N Absent Urine Bacteria 1+ Abnormal Absent Urine Squamous Epithelial Cell Present Abnormal Absent Laboratory test 08/14/2015 [facility] Urine Culture And SEE RESULT [address] [place] [address] [phone] Laboratory test 08/14/2015 [facility] Beta HCG (BHCG) < 0.60 N finding [address] Quantitative mIU/[place] [address] [phone] CBC Auto Diff 06/11/2015 [facility] White Blood Count 6.3 10^3/ uL N 4.8-[address] 0.8 [place] [address] [phone] Red Blood Count 4.38 10^6/uL N 4.0-5.4 Hemoglobin 13.9 g/dL N 12.0-16.0 Hematocrit 42 % N 35-47 Mean Corpuscular Volume 96 fL N 80-97 Mean Corpuscular Hemoglobin 32 pg High 27-31 Mean Corpuscular HGB Conc 33 g/dL N 31-36 Red Cell Distribution Width 14 % N 10.5-15 Platelet Count 283 10^3/uL N 150-450 Mean Platelet Volume 8 um3 N 7.4-10.4 Abs Neutrophils 3.5 10^3/uL N 1.5-7.7 Abs Lymphocytes 2.1 10^3/uL N 1.0-4.8 Abs Monocytes 0.5 10^3/uL N 0-0.8 Abs Eosinophils 0.2 10^3/uL N 0-0.6 Abs Basophils 0.1 10^3/uL N 0-0.2 Abs Nucleated RBC 0 10^3/uL N Granulocyte % 55.4 % N 38-83 Lymphocyte % 34.0 % N 25-47 Monocyte % 7.2 % N 1-9 Eosinophil % 2.4 % N 0-6 Basophil % 1.0 % N 0-2 Nucleated Red Blood Cells % 0.1 N Laboratory test 06/11/2015 [facility] HCG Qualitative Negative N Negative 47 finding [address] [place] [address] [phone] Urinalysis 06/11/2015 [facility] Urine Color Yellow N Profile [address] [place] [address] [phone] Urine Appearance Cloudy N Urine Specific [place] 1.026 N 1.010-1.030 Urine pH 5.0 N 5-9 Urine Urobilinogen Negative N Negative Urine Ketones Trace Abnormal Negative Urine Protein Negative N Negative Urine Leukocytes Trace Abnormal Negative Urine Blood 1+ Abnormal Negative Urine Nitrite Negative N Negative Urine Bilirubin Negative N Negative Urine Glucose Negative N Negative Urine White Blood Cell Trace(0-5/hpf) N Absent Urine Red Blood Cell Trace(0-2/hpf) N Absent Urine Bacteria 1+ Abnormal Absent Urine Squamous Epithelial Cell Present Abnormal Absent Laboratory 06/11/2015 [facility] Lactic Acid 1.0 mmol/L N 0.5- 2.2 test finding [address] [place] [address] [phone] Urine Drug SCR 06/11/2015 [facility] Amphetamine Ur None N None Detect ED & Pain [address] [place] [address] [phone] Barbiturates Urine Screen None Detected N None Detect Benzodiazepine Urine Screen None Detected N None Detect Urine Cannabinoids Screen None Detected N None Detect Urine Cocaine Screen None Detected N None Detect Urine Opiates Screen Presumptive Posi <SEE NOTE> Abnormal None Detect 48 Urine Phencyclidine Screen None Detected N None Detect 49 Laboratory test 06/11/2015 [facility] Lamotrigine 11.0 g/mL N 2.5 - [address] (Lamictal) 15.0 [place] [address] [phone] Urine Culture And Sensitivities SEE RESULT BELOW 51 Laboratory test 05/16/2015 [facility] Culture SEE RESULT [address] [address] [phone] CBC Auto Diff 03/16/2015 [facility] White Blood 8.6 10^3/uL N 4.8-[address] Count .8 [place] [address] [phone] Red Blood Count 4.41 10^6/uL N 4.0-5.4 Hemoglobin 13.9 g/dL N 12.0-16.0 Hematocrit 41 % N 35-47 Mean Corpuscular Volume 94 fL N 80-97 Mean Corpuscular Hemoglobin 32 pg High 27-31 Mean Corpuscular HGB Conc 34 g/dL N 31-36 Red Cell Distribution Width 15 % N 10.5-15 Platelet Count 362 10^3/uL N 150-450 Mean Platelet Volume 8 um3 N 7.4-10.4 Abs Neutrophils 4.9 10^3/uL N 1.5-7.7 Abs Lymphocytes 3.0 10^3/uL N 1.0-4.8 Abs Monocytes 0.5 10^3/uL N 0-0.8 Abs Eosinophils 0.1 10^3/uL N 0-0.6 Abs Basophils 0 10^3/uL N 0-0.2 Abs Nucleated RBC 0 10^3/uL N Granulocyte % 57.3 % N 38-83 Lymphocyte % 34.6 % N 25-47 Monocyte % 5.9 % N 1-9 Eosinophil % 1.7 % N 0-6 Basophil % 0.5 % N 0-2 Nucleated Red Blood Cells % 0 N Laboratory test 03/16/2015 [facility] Monospot Negative N Negative [address] [place] [address] [phone] CBC Auto Diff 03/09/2015 [facility] White Blood 6.8 10^3/uL N 4.8-10.[address] [place] [address] [phone] Red Blood Count 4.28 10^6/uL N 4.0-5.4 Hemoglobin 13.7 g/dL N 12.0-16.0 Hematocrit 40 % N 35-47 Mean Corpuscular Volume 93 fL N 80-97 Mean Corpuscular Hemoglobin 32 pg High 27-31 Mean Corpuscular HGB Conc 35 g/dL N 31-36 Red Cell Distribution Width 15 % N 10.5-15 Platelet Count 351 10^3/uL N 150-450 Mean Platelet Volume 7 um3 Low 7.4-10.4 Abs Neutrophils 3.9 10^3/uL N 1.5-7.7 Abs Lymphocytes 2.1 10^3/uL N 1.0-4.8 Abs Monocytes 0.5 10^3/uL N 0-0.8 Abs Eosinophils 0.2 10^3/uL N 0-0.6 Abs Basophils 0.1 10^3/uL N 0-0.2 Abs Nucleated RBC 0 10^3/uL N Granulocyte % 57.9 % N 38-83 Lymphocyte % 31.1 % N 25-47 Monocyte % 6.7 % N 1-9 Eosinophil % 3.1 % N 0-6 Basophil % 1.2 % N 0-2 Nucleated Red Blood Cells % 0 N Comp Metabolic Panel 03/09/2015 [facility] Sodium 136 mmol/L N 133-145 [address] [place] [address] [phone] Potassium 4.0 mmol/L N 3.5-5.0 Chloride 107 mmol/L N 101-111 Co2 Carbon Dioxide 24 mmol/L N 22-32 Anion Gap 5 mmol/L N 2-11 Glucose 94 mg/dL N 70-100 Blood Urea Nitrogen 6 mg/dL N 6-24 Creatinine 0.73 mg/dL N 0.51-0.95 BUN/Creatinine Ratio 8.2 N 8-20 Calcium 9.3 mg/dL N 8.6-10.3 Total Protein 7.1 g/dL N 6.4-8.9 Albumin 4.4 g/dL N 3.2-5.2 Globulin 2.7 g/dL N 2-4 Albumin/Globulin Ratio 1.6 N 1-3 Total Bilirubin 0.60 mg/dL N 0.2-1.0 Alkaline Phosphatase 84 U/L N 34-104 Alt 21 U/L N 7-52 Ast 24 U/L N 13-39 Egfr Non- 91.8 N >60 Egfr 118.1 N >60 54 Urinalysis Profile 02/16/2015 [facility] Urine Color Yellow N [address] [place] [address] [phone] Urine Appearance Cloudy N Urine Specific [place] 1.017 N 1.010-1.030 Urine pH 6.0 N 5-9 Urine Urobilinogen Negative N Negative Urine Ketones Negative N Negative Urine Protein Negative N Negative Urine Leukocytes 2+ Abnormal Negative Urine Blood Negative N Negative Urine Nitrite Negative N Negative Urine Bilirubin Negative N Negative Urine Glucose Negative N Negative Urine White Blood Cell 2+(11-20/hpf) Abnormal Absent Urine Red Blood Cell 1+(3-5/hpf) Abnormal Absent Urine Bacteria Absent N Absent Urine Squamous Epithelial Cell Present Abnormal Absent Urine Culture And 02/16/2015 [facility] Urine (SEE NOTE) [address] [place] [address] [phone] CBC Auto Diff 02/16/2015 [facility] White Blood 11.5 High 4.8- [address] Count 10^3/uL 0.8 [place] [address] [phone] Red Blood Count 4.32 10^6/uL N 4.0-5.4 Hemoglobin 13.4 g/dL N 12.0-16.0 Hematocrit 40 % N 35-47 Mean Corpuscular Volume 93 fL N 80-97 Mean Corpuscular Hemoglobin 31 pg N 27-31 Mean Corpuscular HGB Conc 33 g/dL N 31-36 Red Cell Distribution Width 16 % High 10.5-15 Platelet Count 294 10^3/uL N 150-450 Mean Platelet Volume 8 um3 N 7.4-10.4 Abs Neutrophils 8.1 10^3/uL High 1.5-7.7 Abs Lymphocytes 2.3 10^3/uL N 1.0-4.8 Abs Monocytes 0.9 10^3/uL High 0-0.8 Abs Eosinophils 0.2 10^3/uL N 0-0.6 Abs Basophils 0.1 10^3/uL N 0-0.2 Abs Nucleated RBC 0 10^3/uL N Granulocyte % 70.4 % N 38-83 Lymphocyte % 20.1 % Low 25-47 Monocyte % 7.4 % N 1-9 Eosinophil % 1.3 % N 0-6 Basophil % 0.8 % N 0-2 Nucleated Red Blood Cells % 0 N Comp Metabolic Panel 02/16/2015 [facility] Sodium 139 mmol/L N 133-145 [address] [place] [address] [phone] Potassium 4.3 mmol/L N 3.5-5.0 Chloride 106 mmol/L N 101-111 Co2 Carbon Dioxide 26 mmol/L N 22-32 Anion Gap 7 mmol/L N 2-11 Glucose 93 mg/dL N 70-100 Blood Urea Nitrogen 14 mg/dL N 6-24 Creatinine 0.74 mg/dL N 0.51-0.95 BUN/Creatinine Ratio 18.9 N 8-20 Calcium 9.6 mg/dL N 8.6-10.3 Total Protein 6.6 g/dL N 6.4-8.9 Albumin 4.1 g/dL N 3.2-5.2 Globulin 2.5 g/dL N 2-4 Albumin/Globulin Ratio 1.6 N 1-3 Total Bilirubin 0.40 mg/dL N 0.2-1.0 Alkaline Phosphatase 69 U/L N 34-104 Alt 15 U/L N 7-52 Ast 15 U/L N 13-39 Egfr Non- 90.4 N >60 Egfr 116.2 N >60 56 Laboratory test 02/16/2015 [facility] Magnesium 2.0 mg/dL N 1.9-2.7 finding [address] [place] [address] [phone] TSH (Thyroid Stimulating Horm) 1.87 IU/mL N 0.34-5.60 Lamotrigine 7.8 g/mL N 2.5 - 15.0 57 CBC Auto 02/14/2015 [facility] White Blood 13.0 10^3/uL High 4.8-10.[address] [place] [address] [phone] Red Blood Count 4.32 10^6/uL N 4.0-5.4 Hemoglobin 13.2 g/dL N 12.0-16.0 Hematocrit 40 % N 35-47 Mean Corpuscular Volume 92 fL N 80-97 Mean Corpuscular Hemoglobin 31 pg N 27-31 Mean Corpuscular HGB Conc 33 g/dL N 31-36 Red Cell Distribution Width 16 % High 10.5-15 Platelet Count 356 10^3/uL N 150-450 Mean Platelet Volume 8 um3 N 7.4-10.4 Abs Neutrophils 8.6 10^3/uL High 1.5-7.7 Abs Lymphocytes 3.2 10^3/uL N 1.0-4.8 Abs Monocytes 1.0 10^3/uL High 0-0.8 Abs Eosinophils 0.2 10^3/uL N 0-0.6 Abs Basophils 0.1 10^3/uL N 0-0.2 Abs Nucleated RBC 0.01 10^3/uL N Granulocyte % 66.2 % N 38-83 Lymphocyte % 24.3 % Low 25-47 Monocyte % 7.3 % N 1-9 Eosinophil % 1.4 % N 0-6 Basophil % 0.8 % N 0-2 Nucleated Red Blood Cells % 0.1 N Comp Metabolic Panel 02/14/2015 [facility] Sodium 136 mmol/L N 133-[address] [place] [address] [phone] Potassium 4.5 mmol/L N 3.5-5.0 Chloride 103 mmol/L N 101-111 Co2 Carbon Dioxide 26 mmol/L N 22-32 Anion Gap 7 mmol/L N 2-11 Glucose 89 mg/dL N 70-100 Blood Urea Nitrogen 13 mg/dL N 6-24 Creatinine 0.79 mg/dL N 0.51-0.95 BUN/Creatinine Ratio 16.5 N 8-20 Calcium 9.8 mg/dL N 8.6-10.3 Total Protein 6.8 g/dL N 6.4-8.9 Albumin 4.3 g/dL N 3.2-5.2 Globulin 2.5 g/dL N 2-4 Albumin/Globulin Ratio 1.7 N 1-3 Total Bilirubin 0.40 mg/dL N 0.2-1.0 Alkaline Phosphatase 73 U/L N 34-104 Alt 14 U/L N 7-52 Ast 12 U/L Low 13-39 Egfr Non- 83.8 N >60 Egfr 107.8 N >60 58 Laboratory test 01/26/2015 [facility] Surgical RUN DATE: [address] Pathology 02/02/ [place] [address] <SEE NOTE> [phone] Surgical 01/26/2015 [facility] S RUN DATE: [address] 02/02/ [place] [address] <SEE NOTE> [phone] Laboratory test 12/28/2014 [facility] Lamotrigine 12.4 N 2.5 [address] g/[place] [address] 15.0 [phone] Laboratory test 12/07/2014 [facility] Lamotrigine 9.5 g/mL N 2.5 [address] [address] 15.0 [phone] Vitamin D 1,25 12/07/2014 [facility] Vitamin D 98 pg/mL Abnormal 18-7 63 And Vitamin D,[address] 1,25-Dihydroxy 8 [place] [address] [phone] Vitamin D, 25 12/07/2014 [facility] 25-Hydroxy 73 ng/mL N Hydroxy [address] Vitamin D2 [place] [address] [phone] 25-Hydroxy Vitamin D3 6.3 ng/mL N 25-Hydroxy Vitamin D Total 79 ng/mL N 64 Laboratory test 12/07/2014 [facility] Hemoglobin A1c 5.1 5-7 finding Comp Metabolic Panel 08/10/2014 Sodium 137 mmol/L N 133-145 65 Potassium 4.2 mmol/L N 3.7-5.6 Chloride 105 mmol/L N 101-111 Co2 Carbon Dioxide 25 mmol/L N 22-32 Anion Gap 7 mmol/L N 2-11 Glucose 92 mg/dL N 70-100 Blood Urea Nitrogen 11 mg/dL N 6-24 Creatinine 0.80 mg/dL N 0.51-0.95 BUN/Creatinine Ratio 13.8 N 8-20 Calcium 9.4 mg/dL N 8.6-10.3 Total Protein 7.0 g/dL N 6.4-8.9 Albumin 4.3 g/dL N 3.2-5.2 Globulin 2.7 g/dL N 2-4 Albumin/Globulin Ratio 1.6 N 1-3 Total Bilirubin 0.60 mg/dL N 0.2-1.0 Alkaline Phosphatase 87 U/L N 34-104 Alt 11 U/L N 7-52 Ast 16 U/L N 13-39 Egfr Non- 83.1 N >60 Egfr 106.9 N >60 66 Lipid Profile (Trig/Chol/HDL) 08/10/2014 Triglycerides 150 mg/dL N 67 Cholesterol 159 mg/dL N 68 HDL Cholesterol 26.7 mg/dL N 69 LDL Cholesterol 102 mg/dL N 70 Vitamin D, 25 Hydroxy 08/10/2014 25-Hydroxy Vitamin D2 41 ng/mL N 25-Hydroxy Vitamin D3 6.3 ng/mL N 25-Hydroxy Vitamin D Total 47 ng/mL N 71 Iron & Iron Binding Capacity 08/10/2014 Iron 46 g/dL Low 50-212 Unsaturated Iron Binding 361 g/dL N Total Iron Binding Capacity 407 g/dL N 250-450 % Iron Saturation 11 % Low 15-55 Laboratory test finding 08/10/2014 Ferritin < 10.0 ng/mL Low 11-307 72 Vitamin B12 460 pg/mL N 180-914 73 Folate 11.39 ng/mL N >3.99 74 Laboratory test 08/10/2014 TSH (Thyroid 2.24 IU/mL N 0.34-5.60 75 finding Stimulating Horm) CBC Auto Diff 08/10/2014 White Blood Count 8.1 10^3/uL N 4.8-10.8 Red Blood Count 4.14 10^6/uL N 4.0-5.4 Hemoglobin 11.3 g/dL Low 12.0-16.0 Hematocrit 34 % Low 35-47 Mean Corpuscular Volume 82 fL N 80-97 Mean Corpuscular Hemoglobin 27 pg N 27-31 Mean Corpuscular HGB Conc 33 g/dL N 31-36 Red Cell Distribution Width 16 % High 10.5-15 Platelet Count 333 10^3/uL N 150-450 Mean Platelet Volume 8 um3 N 7.4-10.4 Abs Neutrophils 5.4 10^3/uL N 1.5-7.7 Abs Lymphocytes 2.0 10^3/uL N 1.0-4.8 Abs Monocytes 0.5 10^3/uL N 0-0.8 Abs Eosinophils 0.1 10^3/uL N 0-0.6 Abs Basophils 0.1 10^3/uL N 0-0.2 Abs Nucleated RBC 0.01 10^3/uL N Granulocyte % 66.2 % N 38-83 Lymphocyte % 25.1 % N 25-47 Monocyte % 6.4 % N 1-9 Eosinophil % 1.6 % N 0-6 Basophil % 0.7 % N 0-2 Nucleated Red Blood Cells % 0.1 N Lipid Panel - JFM 08/10/2014 Creatine Kinase 76 U/L N 10-223 76 Comp Metabolic 01/10/2014 [facility] Sodium 139 mmol/L 133- [address] [place] [address] [phone] Potassium 3.9 mmol/L 3.7-5.6 Chloride 107 mmol/L [...] Egfr Non- 88.2 >60 Egfr 113.4 >60 77 CBC Auto Diff 01/10/2014 [facility] White Blood 8.7 10^3/uL 4.8-10.[address] [place] [address] [phone] Red Blood Count 4.28 10^6/uL 4.0-5.4 Hemoglobin [...] Red Blood Cells % 0 Laboratory test 10/28/2013 [facility] Lamotrigine 8.4 g/mL 2.5 - 15.0 78 finding [address] [place] [address] [phone] Laboratory test 09/01/2013 [facility] Lamotrigine 7.6 g/mL 2.5 - 15.0 79 finding [address] [place] [address] [phone] Laboratory test 05/29/2013 [facility] Lamotrigine 10.9 g/mL 2.5 - 15.0 80 finding [address] [place] [address] [phone] Urine Culture 05/28/2013 [facility] Urine Culture (SEE NOTE) [address] [place] [address] [phone] Laboratory test 12/15/2012 [facility] Lamotrigine 5.2 g/mL 2.5 - 15.0 82 finding [address] [place] [address] [phone] Laboratory test 10/22/2012 [facility] Serum Negative Negative [address] [place] [address] [phone] Urine Culture 10/22/2012 [facility] Urine Culture (SEE NOTE) [address] [place] [address] [phone] Throat-Beta 09/25/2012 [facility] Throat Beta (SEE NOTE) [address] [address] [phone] Laboratory test 09/03/2012 [facility] Lamotrigine 3.9 g/mL 2.5 - 15.[address] [place] [address] [phone] Comp Metabolic 07/14/2012 [facility] Sodium 138 mmol/L 135- [address] [place] [address] [phone] Potassium 4.3 mmol/L 3.5-5.0 Chloride 106 mmol/L 101-111 Co2 (Carbon Dioxide) 28.0 mmol/L 22-32 Anion Gap 4.0 mmol/L 2-11 87 Glucose 93 mg/dL 70-100 BUN 10 mg/dL 6-24 Creatinine 0.8 mg/dL 0.50-1.40 One Over Creatinine 1.25 BUN/Creatinine Ratio 12.5 8-20 Calcium 9.4 mg/dL 8.1-9.9 Total Protein 6.8 GM/DL 6.2-8.1 Albumin 3.9 GM/DL 3.6-5.4 Globulin 2.9 GM/DL 2-4 Albumin/Globulin Ratio 1.3 1-3 Bilirubin Total 0.5 mg/dL 0.4-1.5 88 Alkaline Phosphatase 59 U/L 30-110 Alt (SGPT) 16 U/L 14-54 Ast (Sgot) 19 U/L 12-42 eGFR Non- 84.2 > 60 eGFR 108.3 > 60 89 CBC No Diff 07/14/2012 [facility] White Blood Count 8.2 CUMM 4.8-10.[address] [place] [address] [phone] Red Cell Count 3.83 CUMM Low 4.2-5.4 Hemoglobin 12.3 g/dL 12.0-16.0 Hematocrit 37 % 35-47 Mean Corpuscular Volume 96 um3 79-97 Mean Corpuscular Hemoglob 32 pg High 27-31 Mean Corpuscular HGB Cone 34 g/dL 32-36 Redcell Distribution WDTH 15 % 10.5-15 Platelet Count 312 CUMM 150-450 Mean Platelet Volume 8.6 um3 7.4-10.4 Laboratory test 07/14/2012 [facility] Lamotrigine 3.8 g/mL 2.5 - 15.0 [address] [place] [address] [phone] 1 Normal Range 180 to 914 Indeterminate Range 145 to 180 Deficient Range <145 2 Desirable: <150 Borderline High: 150-199 High: 200-499 Very High: >500 3 Desirable: <200 Borderline High: 200-239 High: >239 4 Low: <40 Desirable: 40-60 High: >60 5 Desirable: <100 Near Optimal: 100-129 Borderline High: 130-159 High: 160-189 Very High: >189 6 FASTING 10 HOUR 7 Desirable: <150 Borderline High: 150-199 High: 200-499 Very High: >500 8 Desirable: <200 Borderline High: 200-239 High: >239 9 Low: <40 Desirable: 40-60 High: >60 10 Desirable: <100 Near Optimal: 100-129 Borderline High: 130-159 High: 160-189 Very High: >189 11 Storm S[employer] Maker: [id number] SEE RESULT BELOW Name: DEAN PENG : [address]: Cydney Chen MD Acct: [id number] Unit: [id number] AGE: 37 Location: ED Re04/10/18 SEX: F Status: REG ER SPEC: [id number] DEBBIE: 04/10/[address] [facility] [address]: Cydney Chen MD REQ: [id number] RECD: 04/10/18 STATUS: TOMASA COCHRAN DR: Tanvir Vizcarra MD _ SOURCE: THROAT SPDESC: ORDERED: Strep A Request Procedure Result Reported Site Rapid Strep A Request Final 04/10/18236 ML Specimen received for Rapid Strep A Molecular testing * ML - Main Lab . END OF REPORT DEPARTMENT OF PATHOLOGY, [address] [place] [address] Ty Guo M.D. Director TL # [id number] 13 ADDITIONAL INFORMATION This test was developed and its performance characteristics determined by [facility] in a manner consistent with CLIA requirements. This test has not been cleared or approved by the U.S. Food and Drug Administration. Test Performed by: [facility] - [address] [address] 14 Because ethnic data is not always readily [...] 15-29 5 Kidney failure <15 (or dialysis) 15 ADDITIONAL INFORMATION This test was developed and its performance characteristics determined by [facility] in a manner consistent with CLIA requirements. This test has not been cleared or approved by the U.S. Food and Drug Administration. Test Performed by: [facility] - [address] [address] 16 Because ethnic data is not always readily [...] 15-29 5 Kidney failure <15 (or dialysis) 17 Therapeutic target for the treatment of diabetes Mellitus patients is <7% HBA1C, and in selective patients <6.0%.Please refer to [place] [employer] Diabetic care guidelines for further information. 18 SEE RESULT BELOW Name: GINETTEDEAN L : [address]: Tanvir Vizcarra MD Acct: [id number] Unit: [id number] AGE: 36 Location: [facility] Re06/18/17 SEX: F Status: REG REF SPEC: [id number] DEBBIE: 06/18/17-[address] [facility] [address]: Tanvir Vizcarra MD REQ: [id number] RECD: 06/18/17 STATUS: COMP _ SOURCE: URINE SPDESC: ORDERED: Urine Culture COMMENTS: [id number] Urine Source: Random Procedure Result Reported Site Urine Culture Final 06/19/17- 1623 ML No growth of clinically significant organisms * ML - [facility] ([facility]) . END OF REPORT * ML=Testing performed at Main Lab DEPARTMENT OF PATHOLOGY, [address] [place] [address] Ty Guo M.D. Director [facility] # [id number] 19 ADDITIONAL INFORMATION The thyroglobulin antibody testing method is an immunoenzymatic assay manufactured by [employer] and performed on the [employer] DXI 800. Values obtained from different assay methods or kits may be different and cannot be used interchangeably. The results cannot be interpreted as absolute evidence for the presence or absence of malignant disease. Test Performed by: [address] [address] 20 SEE RESULT BELOW Name: DEAN PENG : [address]: Vance Garnett DO Acct: [id number] Unit: [id number] AGE: 36 Location: ED Re04/04/17 SEX: F Status: DEP ER SPEC: [id number] DEBBIE: 04/04/17-[address]: Vance Garnett DO REQ: [id number] RECD: 04/04/17 STATUS: TOMASA COCHRAN DR: [facility] Baldev Bonner MD _ SOURCE: URINE SPDESC: ORDERED: Urine Culture Procedure Result Reported Site Urine Culture Final 04/06/17- 0920 ML No growth of clinically significant organisms * ML - MAIN LAB ([facility]) . END OF REPORT * ML=Testing performed at Main Lab DEPARTMENT OF PATHOLOGY, [address] [place] [address] Ty Guo M.D. Director [facility] # [id number] 21 99th percentile=0.04 ng/mL Troponin results at [facility] and [facility] are not interchangeable. 22 Because ethnic data is not always readily [...] 15-29 5 Kidney failure <15 (or dialysis) 23 Storm Sash Maker: [id number] [facility] Severe Sepsis and Septic Shock Management Bundle Measure requires all lactic acids initially measuring >2.0 mmol/L be repeated. 25 SEE RESULT BELOW Name: DEAN PENG : [address]: [facility] Physic Acct: [id number] Unit: [id number] AGE: 36 Location: ED Re04/04/17 SEX: F Status: REG ER SPEC: [id number] DEBBIE: 04/04/[address]: Vance Garnett DO REQ: [id number] RECD: 04/04/17 STATUS: TOMASA COCHRAN DR: [facility] Baldev Bonner MD _ SOURCE: THROAT SPDESC: ORDERED: Strep A Request Procedure Result Reported Site Rapid Strep A Request Final 04/04/171046 ML Specimen received for Rapid Strep A Molecular testing * ML - MAIN LAB ([facility]) . END OF REPORT * ML=Testing performed at Main Lab DEPARTMENT OF PATHOLOGY, [address] [place] [address] Ty Guo M.D. Director [facility] # [id number] 26 Because ethnic data is not always readily [...] 15-29 5 Kidney failure <15 (or dialysis) 27 ADDITIONAL INFORMATION This test was developed and its performance characteristics determined by [facility] in a manner consistent with CLIA requirements. This test has not been cleared or approved by the U.S. Food and Drug Administration. Test Performed by: [place] [address] Bell Tier: Kenrick Hightower II, M.D., Ph.D. 28 REFERENCE VALUE Reference values depend on clinical use: Anticonvulsant: 5.0-20.0 mcg/mL Psychiatric: 2.0-8.0 mcg/mL ADDITIONAL INFORMATION This test was developed and its performance characteristics determined by [facility] in a manner consistent with CLIA requirements. This test has not been cleared or approved by the U.S. Food and Drug Administration. Test Performed by: [place] [address] Bell Tier: Kenrick Hightower II, M.D., Ph.D. 29 [facility] Severe Sepsis and Septic Shock Management Bundle Measure requires all lactic acids initially measuring >2.0 mmol/L be repeated. 30 Because ethnic data is not always readily [...] 15-29 5 Kidney failure <15 (or dialysis) 31 <5.0 Negative 5.0 - 25.0 Indeterminate (Repeat testing recommended after 72 hours) >25.0 Positive Perimenopausal women can display HCG levels of up to 20 mIU/mL 32 >100 to <200 pg/mL: likely compensated congestive heart failure (CHF) 200 to 400 pg/mL: likely moderate CHF >400 pg/mL: likely moderate to severe CHF 33 Test Performed by: [place] [address] Bell Tier: Kenrick Hightower II, M.D., Ph.D. 34 Acute inflammation: >10.00 35 Reference Range and Interpretation: TnI (ng/mL) Interpretation Less Than 0.03 ng/mL Not supportive of diagnosis of ID 0.03 - 0.50 ng/mL Indeterminate: suggest serial studies if clinically indicated. Greater than 0.5 ng/mL Consistent with diagnosis of ID 36 Because ethnic data is not always readily [...] 15-29 5 Kidney failure <15 (or dialysis) 37 FASTING 10 HOUR 38 FASTING 10 HOUR 39 Desirable <150 Borderline high 150-199 High 200-499 Very High >500 40 Desirable <200 Borderline high 200-239 High >239 41 Low <40 Desirable: 40-60 High: >60 42 Desirable: <100 mg/dL Near Optimal: 100-129 mg/dL Borderline High: 130-159 mg/dL High: 160-189 mg/dL Very High: >189 mg/dL 43 FASTING 10 HOUR 44 SEE RESULT BELOW Name: DEAN PENG : [address]: Jeremiah Zendejas NP Acct: [id number] Unit: [id number] AGE: 35 Location: [facility] Re12/20/15 SEX: F Status: REG REF SPEC: [id number] DEBBIE: 12/20/15-[address]: Jeremiah Sanchez Spanish ROGUER REQ: [id number] RECD: 12/20/15 STATUS: SOUT _ ORDERED: IMAGE [...] Test Result Flag (u) Normal Range 12/20/15 154 HPV RNA RFLX GE Negative Negative The high-risk HPV types detected by the assay include: 16, 18, 31, 33, 35, 39, 45, 51, 52, 56, 58, 59, 66, and 68. Signed (signature on file) LINH Smith(ASCP) 12/22 1032 This Pap test was evaluated with the assistance of the Data Expeditionp Test Imaging System. Due to cytologic findings at the district sales leader microscope, comprehensive manual rescreening by a Agricultural Research Technologist may be required. The Pap Smear is [...] evaluated every 1-3 years. RUN DATE: 12/22/15 [facility] LAB LIVE PAGE 1 Patient: DEAN PENG [id number] (Continued) CONTINUED ON NEXT PAGE * ML=Testing performed at [facility] Lab DEPARTMENT OF PATHOLOGY, [address] [place] [address] Ty Guo M.D. Director [facility] # [id number] 45 The high-risk HPV types detected by the assay include: 16, 18, 31, 33, 35, 39, 45, 51, 52, 56, 58, 59, 66, and 68. 46 SEE RESULT BELOW Name: DEAN PENG : [address]: Jeremiah Zendejas NP Acct: [id number] Unit: [id number] AGE: 34 Location: LAB Re08/14/15 SEX: F Status: REG REF SPEC: [id number] DEBBIE: 08/14/15-[address]: Jeremiah Zendejas ROGUER REQ: [id number] RECD: 08/14/15 STATUS: COMP _ SOURCE: URINE SPDESC: ORDERED: Urine Culture Procedure Result Verified Site Urine Culture Final 08/16/15- 1127 ML Organism 1 NORMAL JUDE Rillito Count 25-50,000 (Moderate) CFU/ML * ML - [facility] ([facility]) . END OF REPORT * ML=Testing performed at Main Lab DEPARTMENT OF PATHOLOGY, [address] [place] [address] Ty Guo M.D. Director [facility] # [id number] 47 Comment: f 48 Presumptive Positive 49 The urine specimen was tested at the listed cutoffs: Drug class test level (ng/mL) Amphetamines 500 Barbituates 200 Benzodiazepine metabolites 200 Cocaine metabolites 150 Cannabinoids 50 Opiates 300 Pcp 25 This is a screening procedure. Positive results are not confirmed. Specimen was received without chain of custody. Results should be used for medical purposes only. 50 Test Performed by: [place] [address] Bell Tier: Kenrick Hightower II, M.D., Ph.D. 51 SEE RESULT BELOW Name: DEAN PENG : [address]: Justin Tom MD Acct: [id number] Unit: [id number] AGE: 34 Location: ED Re06/11/15 SEX: F Status: DEP ER SPEC: [id number] DEBBIE: 06/11/[address] [facility] [address]: Justin Tom MD REQ: [id number] RECD: 06/11/15 STATUS: TOMASA COCHRAN DR: [facility] Jeremiah Zendejas ROGUER _ SOURCE: URINE SPDESC: ORDERED: Urine Culture Procedure Result Verified Site Urine Culture Final 06/14/15- 938 ML Organism 1 NORMAL JUDE Rillito Count >100,000 (Many) CFU/ML * ML - MAIN LAB ([facility]) . END OF REPORT * ML=Testing performed at Main Lab DEPARTMENT OF PATHOLOGY, [address] [place] [address] Ty Guo M.D. Director [facility] # [id number] 52 SEE RESULT BELOW Name: DEAN PENG Lee : [address]: Jeremiah Zendejas ROGUER Acct: [id number] Unit: [id number] AGE: 34 Location: [facility] Re05/16/15 SEX: F Status: REG REF SPEC: [id number] DEBBEI: 05/16/[address]: Jeremiah Zendejas NP REQ: [id number] RECD: 05/16/15 STATUS: COMP _ SOURCE: THROAT SPDESC: ORDERED: Throat Culture Procedure Result Verified Site Throat Culture Final 05/18/15- 0752 ML Organism 1 NORMAL JUDE Quantity 2+ Throat cultures are clinically indicated to detect the presence of group A strep, arcanobacterium and yeast. In certain cases, predominating organisms will be reported. * ML - MAIN LAB ([facility]) . END OF REPORT * ML=Testing performed at Main Lab DEPARTMENT OF PATHOLOGY, [facility] [place], [place] [address] Ty Guo M.D. Director [facility] # [id number] 53 N 54 Because ethnic data is not always readily [...] 15-29 5 Kidney failure <15 (or dialysis) 55 RUN DATE: 02/19/15 [facility] LAB LIVE PAGE 1 RUN TIME: 833 [facility] [employer] [place], [place] [address] Specimen Inquiry Name: DEAN PENG : [address]: Srinivas Boston MD Acct: [id number] Unit: [id number] AGE: 34 Location: ED Re02/16/15 SEX: F Status: DEP ER SPEC: [id number] DEBBIE: 02/16/[address]: Hernando House DO REQ: [id number] RECD: 02/16/15 STATUS: TOMASA COCHRAN DR: [facility] Marito Turpin III, MD _ SOURCE: URINE SPDESC: ORDERED: Urine Culture Procedure Result Verified Site Urine Culture Final 02/19/15- 0834 ML Organism 1 ESCHERICHIA COLI Rillito Count 25-50,000 (Moderate) CFU/ML Organism 2 NORMAL JUDE Rillito Count 25-50,000 (Moderate) CFU/ML 1. ESCHERICHIA COLI [...] antibiotic reporting. * ML - MAIN LAB ([facility]) . END OF REPORT * ML=Testing performed at Main Lab DEPARTMENT OF PATHOLOGY, [address] [place] [address] Ty Guo M.D. Director [facility] # [id number] 56 Because ethnic data is not always readily [...] 15-29 5 Kidney failure <15 (or dialysis) 57 Test Performed by: [address] [address] Bell Tier: Kenrick Hightower II, M.D., Ph.D. 58 Because ethnic data is not always readily [...] 15-29 5 Kidney failure <15 (or dialysis) 59 RUN DATE: 02/02/15 [facility] LAB LIVE PAGE 1 RUN TIME: [address] [place] [address] Specimen Inquiry Name: DEAN PENG : [address]: Jeremiah Zendejas NP Acct: [id number] Unit: [id number] AGE: 34 Location: [facility] Re01/26/15 SEX: F Status: REG REF SPEC: DEBBIE: 01/26/[address] [facility] [address]: Tnavir Vizcarra MD REQ: [id number] RECD: 01/26/15 STATUS: SHAUN COCHRAN DR: Jeremiah Zendejas ROGUER _ ORDERED: GOM METH STN, PASS STAIN, [...] performed at Main Lab DEPARTMENT OF PATHOLOGY, [address] [place] [address] Ty Guo M.D. Director [facility] # [id number] 60 RUN DATE: 02/02/15 [facility] LAB LIVE PAGE 1 RUN TIME: [address] [place] [address] Specimen Inquiry Name: DEAN PENG : [address]: Jeremiah Zendejas ROGUER Acct: [id number] Unit: [id number] AGE: 34 Location: [facility] Re01/26/15 SEX: F Status: REG REF SPEC: [id number] DEBBIE: 01/26/[address]: Tanvir Vizcarra MD REQ: [id number] RECD: 01/26/15 STATUS: SHAUN COCHRAN DR: Jeremiah Zendejas ROGUER _ ORDERED: GOM METH STN, PASS STAIN, [...] performed at Main Lab DEPARTMENT OF PATHOLOGY, [address] [place] [address] Ty Guo M.D. Director [facility] # [id number] RUN DATE: 02/02/15 [facility] LAB LIVE PAGE 2 RUN TIME: [address] [place] [address] Specimen Inquiry Patient: GINETTEDEAN Lee [id number] (Continued) MICROSCOPIC DESCRIPTION (Continued) Signed (signature on file) Griselda Garsia MD 0928 END OF REPORT * ML=Testing performed at [facility] DEPARTMENT OF PATHOLOGY, [address] [place] [address] Ty Guo M.D. Director [facility] # [id number] 61 Test Performed by: [place] [address] Bell Tier: Kenrick Hightower II, M.D., Ph.D. 62 Test Performed by: [place] [address] Bell Tier: Kurt Hinton M.D. 63 Test Performed by: [place] [address] Bell Tier: Kurt Hinton M.D. 64 Interpretation: 51-80 ng/mL (increased risk of hypercalciuria) REFERENCE VALUE 25-HYDROXY D TOTAL (D2+D3) Optimum levels in the healthy population are 20-50, patients with bone disease may benefit from higher levels within this range. Test Performed by: [place] [address] Bell Tier: Kurt Hinton M.D. 65 FASTING 10 HOUR 66 Because ethnic data is not always readily [...] 15-29 5 Kidney failure <15 (or dialysis) 67 Desirable <150 Borderline high 150-199 High 200-499 Very High >500 68 Desirable <200 Borderline high 200-239 High >239 69 Low <40 Desirable: 40-60 High: >60 70 Desirable <100 Near Optimal 100-129 Borderline high 130-159 High 160-189 Very High >189 71 REFERENCE VALUE 25-HYDROXY D TOTAL (D2+D3) Optimum levels in the healthy population are 20-50, patients with bone disease may benefit from higher levels within this range. Test Performed by: [place] [id number] Bell Tier: Kurt Hinton M.D. 72 FASTING 10 HOUR 73 Normal Range 180 to 914 Indeterminate Range 145 to 180 Deficient Range <145 74 FASTING 10 HOUR 75 FASTING 10 HOUR 76 FASTING 10 HOUR 77 Because ethnic data is not always readily [...] 15-29 5 Kidney failure <15 (or dialysis) 78 Test Performed by: [place] [address] Bell Tier: Luis Altamirano III, M.D. 79 Test Performed by: [address] [address] Bell Tier: Luis Altamirano III, M.D. 80 Test Performed by: [place] [address] Bell Tier: Luis Altamirano III, M.D. 81 RUN DATE: 05/30/13 [facility] LAB LIVE PAGE 1 RUN TIME: [address] [place] [address] Specimen Inquiry Name: DEAN KEYES : [address]: Momo Diaz MD Acct: [id number] Unit: [id number] AGE: 32 Location: [facility] Re05/28/13 SEX: F Status: DEP ER SPEC: [id number] DEBBIE: 05/28/13-[address] [facility] [address]: Momo Diaz MD REQ: [id number] RECD: 05/28/13 STATUS: COMP [facility] DR: Tanvir Vizcarra MD _ SOURCE: URINE SPDESC: ORDERED: Urine Culture QUERIES: Medent Number [id number] Procedure Result Verified Site Urine Culture Final 05/30/13- 1112 ML Organism 1 NORMAL JUDE Rillito Count 25-50,000 (Moderate) CFU/ML END OF REPORT * ML=Testing performed at Main Lab DEPARTMENT OF PATHOLOGY, [facility] [place] [employer], [place] [address] Ty Guo M.D. Director [facility] Permit #[id number] 82 Test Performed by: [facility] - [address] [address] Bell Tier: Luis Altamirano III, M.D. 83 This test detects intact HCG only and is indicated for the early detection of . 84 RUN DATE: 10/24/12 [facility] LAB LIVE PAGE 1 RUN TIME: 928 [facility] [employer] [place], [place] [address] Specimen Inquiry Name: DEAN KEYES : [address]: Charline BAINS,Lynette Davis Acct: [id number] Unit: [id number] AGE: 32 Location: [facility] Re10/22/12 SEX: F Status: DEP ER SPEC: [id number] DEBBIE: 10/22/[address]: Charline BAINSLynette Davis REQ: [id number] RECD: 10/22/12 STATUS: TOMASA COCHRAN DR: GISSELL Carlin MD,Yudi Yadav MD,Clinton Blanco _ SOURCE: URINE SPDESC: ORDERED: Urine Culture Procedure Result Verified Site Urine Culture Final 10/24/12- 0928 ML Organism 1 STREP GROUP B Rillito Count 25-50,000 (Moderate) CFU/ML Organism 2 NORMAL JUDE Rillito Count 75-100,000 (Many) CFU/ML Susceptibility testing of penicillins and other B-lactams approved by FDA for treatment of Streptococcus pyogenes (Group A Strep) and Streptococcus agalactiae (Group B Strep) is not necessary for clinical purposes and need not be done routinely, since as with vancomycin, resistant strains have not been recognized. (CLSI Y101-L97;p.66) Positive isolates will be saved for one week. Please call the Microbiology Laboratory if further susceptibility testing is needed. END OF REPORT * ML=Testing performed at Main Lab DEPARTMENT OF PATHOLOGY, [facility] [place] [address] Ty Guo M.D. Director [facility] Permit #[id number] RUN DATE: 09/27/12 [facility] LAB LIVE PAGE 1 RUN TIME: [address] [place] [address] Specimen Inquiry Name: DEAN KEYES : [address]: Lucas Arce MD Acct: [id number] Unit: [id number] AGE: 31 Location: [facility] Re09/25/12 SEX: F Status: DEP ER SPEC: [id number] DEBBIE: 09/25/[address]: Lucas Arce MD REQ: [id number] RECD: 09/25/12 STATUS: TOMASA COCHRAN DR: GISSELL Carlin MD,Yudi _ SOURCE: THROAT SPDESC: ORDERED: Throat Beta Str Procedure Result Verified Site Throat Beta Strep Culture Final 09/27/12801 ML Negative For Group A Beta Streptococcus END OF REPORT * ML=Testing performed at Main Lab DEPARTMENT OF PATHOLOGY, [address] [place] [address] Ty Guo M.D. Director [facility] Permit #[id number] 86 Test Performed by: [address] [address] Bell Tier: Luis Altamirano III, M.D. R 87 Anion gap measurement may be of limited value in the presence of any alkalosis, especially in a combined acid base disorder. . 88 A metabolite of Naproxen, O-desmethylnaproxen, has been shown to interfere with the Jendrassik-Julien method for measuring total bilirubin. Samples from patients who have taken Naproxen have shown spurious elevation in total bilirubin levels. 89 Because ethnic data is not always readily [...] 15-29 5 Kidney failure <15 (or dialysis) 90 Test Performed by: [address] [address] Bell Tier: Luis Altamirano III, M.D. Procedures Date Code Description Status 08/20/2017 41347 Polysomnography Sleep Staging 4+ Parameters Completed 07/03/2016 71069 EEG Monitoring & Video Recording Completed 07/02/2016 87816 EEG Monitoring & Video Recording Completed 07/01/2016 19418 EEG Monitoring & Video Recording Completed 06/30/2016 01770 EEG Monitoring & Video Recording Completed 06/29/2016 09056 EEG Monitoring & Video Recording Completed 06/28/2016 49469 EEG Monitoring & Video Recording Completed 01/15/2016 85840 Pulmonary Function><Bronchodil Completed 12/21/2015 00478 EKG Tracing & Interpretation Completed 12/20/2015 72343 EKG Tracing & Interpretation Completed 01/26/2015 93156 Biopsy Skin Lesion Single Completed 12/28/2014 06084 EEG Recording Awake & Asleep Completed 01/15/2013 72299 ECHO Stress Test Incl Perf Contiuous ekg Monitoring W/Phys Completed Superv 12/15/2012 44061 Cardiac Event Monitor Completed 12/11/2012 23480 ECHO Transthoracic, Real-Time 2D With Doppler And Color Completed Flow 11/18/2012 49235 EKG Tracing & Interpretation Completed 09/03/2012 56947 Holter Monitor Review (24 hr) review & interp only Completed 09/01/2012 86451 Holter Monitor Review (24 hr) review & interp only Completed 08/21/2012 96762 EEG Recording Awake & Asleep Completed Encounters Type Date Location Provider Dx Diagnosis Office Visit 08/19/2018 [facility] Internal Jose Bell, J01.90 Acute sinusitis , 1:00p Medicine - [place] [employer] [address] unspecified Rd R05 Cough Z23 Encounter for immunization Office Visit 07/15/2018 1:20p 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 Internal Andreaofia E03.9 Hypothyroidism, Medicine - Ray, [employer] unspecified [place] [address] D50.9 Iron deficiency anemia, unspecified K13.79 Other lesions of oral mucosa J06.9 Acute upper respiratory infection, unspecified Office Visit 04/22/2018 11:00a [facility] Internal Jose Bell, H81.399 Other peripheral Medicine - [employer] vertigo, [place] [address] unspecified ear G40.909 Epilepsy, unsp, not intractable, without status epilepticus E03.9 Hypothyroidism, unspecified E66.01 Morbid (severe) obesity due to excess calories N92.0 Excessive and frequent menstruation with regular cycle Z13.220 Encounter for screening for lipoid disorders Office Visit 03/10/2018 2:40p [facility] Internal Tanvir H81.399 Other peripheral Elizabeth Vizcarra M.D. vertigo, [place] [address] unspecified ear G40.909 Epilepsy, unsp, not intractable, without status epilepticus Office Visit 01/21/2018 9:40a [facility] Internal Baldev Beck J45.40 Moderate persistent Elizabeth Bonner M.D.,FACP asthma, [place] [address] uncomplicated Z23 Encounter for immunization Office Visit 01/15/2018 [facility] Internal Tanvir E03.9 Hypothyroidism, 1:40p Elizabeth Vizcarra M.D. 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 disorder with seizures or convulsions G43.909 Migraine, unsp, not intractable, without status migrainosus Office Visit 10/16/2017 [facility] Internal Tanvir E03.9 Hypothyroidism, 1:40p Elizabeth Vizcarra M.D. unspecified [address] F32.9 Major depressive disorder, single episode, unspecified K21.9 Gastro-esophageal reflux disease without esophagitis E66.01 Morbid (severe) obesity due to excess calories Z23 Encounter for immunization Z68.43 Body mass index (BMI) 50-59.9 , adult Office 09/12/2017 [facility] [place] G43.909 Migraine, unsp, Visit 9:15a Elle Yadav M.D. not intractable, without status migrainosus F44.5 Conversion disorder with seizures or convulsions Office Visit 09/09/2017 9:15a [facility] Diana G47.33 Obstructive sleep [facility] [place] apnea (adult) [facility] (pediatric) E66.01 Morbid (severe) obesity due to excess calories Office Visit 07/21/2017 10:15a [facility] Diana [place]al[place], R06.[address] [facility] J44.9 Chronic obstructive pulmonary disease, unspecified E66.01 Morbid (severe) obesity due to excess calories Office 07/18/2017 [facility] [place] G43.909 Migraine, unsp, Visit 3:00p Clinic Pablo Yadav not intractable, without status migrainosus F44.5 Conversion disorder with seizures or convulsions Office Visit 07/17/2017 [facility] Internal Tanvir E03.9 Hypothyroidism, 1:20p Elizabeth Vizcarra M.D. unspecified [address] E66.01 Morbid (severe) obesity due to excess calories R73.9 Hyperglycemia, unspecified Office Visit 06/18/2017 1:20p [facility] Internal Tanvir Vizcarra, R30.0 Dysuria Medicine - Pablo Raymond Office Visit 05/15/2017 2:00p [facility] Internal Tanvir Vizcarra, Z00.00 Encntr for Medicine - [place] M.[facility] general adult Rd medical exam w/o abnormal findings D17.9 Benign lipomatous neoplasm, unspecified G47.33 Obstructive sleep apnea (adult) (pediatric) F33.9 Major depressive disorder, recurrent, unspecified Office 04/18/2017 [facility] [place] Blanco G43.909 Migraine, unsp, Visit 10:15a Clinic Pablo Yadav not intractable, without status migrainosus F44.5 Conversion disorder with seizures or convulsions Office Visit 04/08/2017 11:20a [facility] Internal Tanvir Vizcarra, J06.9 Acute upper Medicine - [place] respiratory [address] infection, unspecified H81.393 Other peripheral vertigo, bilateral E03.9 Hypothyroidism, unspecified Office Visit 04/02/2017 [facility] Internal Marito Gruber K08.89 Other specified 2:20p Elizabeth Turpin M.D. disorders of teeth [place] and supporting structures Office Visit 03/25/2017 [facility] Internal Tanvir K05.00 Acute gingivitis, 3:40p Elizabeth Vizcarra plaque induced [address] M.D. Office Visit 10/31/2016 [facility] Internal Jeremiah Zendejas, J00 Acute nasopharyngitis 2:20p Medicine - ROGUER [common cold] [address] Office Visit 10/29/2016 [facility] Francia Zendejas, F41.9 Anxiety disorder, 11:00a Medicine - ROGU[place] unspecified [address] F33.9 Major depressive disorder, recurrent, unspecified F44.5 Conversion disorder with seizures or convulsions G43.909 Migraine, unsp, not intractable, without status migrainosus Z02.71 Encounter for disability determination Office 10/17/2016 [facility] Clinton Blanco G43.909 Migraine, unsp, Visit 10:00a Clinic Pablo Yadav not intractable, without status migrainosus F44.5 Conversion disorder with seizures or convulsions Office Visit 10/07/2016 10:40a [facility] Internal Jeremiah Zendejas, G43.909 Migraine , unsp, Medicine - ROGUER not intractable, [address] without status migrainosus F33.9 Major depressive disorder, recurrent, unspecified D48.5 Neoplasm of uncertain behavior of skin R22.2 Localized swelling, mass and lump, trunk Office Visit 07/04/2016 [facility] Kady Baker F44.5 Conversion 11:01a Clinic MD disorder with seizures or convulsions Office Visit 07/03/2016 [facility] Kady Baker F44.5 Conversion 11:01a Clinic MD disorder with seizures or convulsions G43.909 Migraine, unsp, not intractable, without status migrainosus Office Visit 07/02/2016 [facility] Kady Baker F44.5 Conversion 11:00a Clinic MD disorder with seizures or convulsions G43.909 Migraine, unsp, not intractable, without status migrainosus Office Visit 07/01/2016 [facility] Baker F44.5 Conversion 10:59a Clinic MD disorder with seizures or convulsions G43.909 Migraine, unsp, not intractable, without status migrainosus Office Visit 06/30/2016 [facility] F44.5 Conversion 10:59a Clinic MD disorder with seizures or convulsions G43.909 Migraine, unsp, not intractable, without status migrainosus Office Visit 06/29/2016 [facility] F44.5 Conversion 10:58a Clinic MD disorder with seizures or convulsions G43.909 Migraine, unsp, not intractable, without status migrainosus Office Visit 06/28/2016 [facility] Kady Baker, F44.5 Conversion 10:55a Clinic MD disorder with seizures or convulsions G43.909 Migraine, unsp, not intractable, without status migrainosus Office Visit 05/10/2016 Scooter PearceBryant G43.009 Migraine w/o aura, 10:45a Neurologic Pablo Yadav not intractable, [facility] w/o status migrainosus G40.209 Local-rel symptc epi w cmplx prt seiz,not ntrct,w/o stat epi Office Visit 05/03/2016 1:40p [facility] Internal Jeremiah Zendejas, M79.632 Pain in left Medicine - [place] [address] S50.12xA Contusion of left forearm, initial encounter Office Visit 03/26/2016 3:00p [facility] Internal Jeremiah Zendejas, H81.319 Aural vertigo, Medicine - [place] unspecified ear [address] J02.9 Acute pharyngitis, unspecified Office Visit 02/22/2016 [facility] Internal Jeremiah Zendejas, F33.9 Major depressive 1:00p Medicine - [place] disorder, recurrent, [address] unspecified Office Visit 01/24/2016 [facility] Internal Jeremiah Zendejas, G40.909 Epilepsy, unsp , not 3:40p Medicine - [place] intractable, without [address] status epilepticus Office Visit 01/01/2016 [facility] Internal Jeremiah Zendejas, A09 Infectious 3:00p Medicine - [place] gastroenteritis and [address] colitis, unspecified R11.2 Nausea with vomiting, unspecified Office Visit 12/20/2015 2:40p [facility] Internal Jeremiah Zendejas, Z01.419 Encntr for resolution rep Medicine - [place] exam (general) Rd (routine) w/o abn findings G40.909 Epilepsy, unsp, not intractable, without status epilepticus E55.9 Vitamin D deficiency, unspecified F32.9 Major depressive disorder, single episode, unspecified E66.9 Obesity, unspecified J45.909 Unspecified asthma, uncomplicated G43.009 Migraine w/o aura, not intractable, w/o status migrainosus R19.7 Diarrhea, unspecified Z13.220 Encounter for screening for lipoid disorders Z13.1 Encounter for screening for diabetes mellitus R00.0 Tachycardia, unspecified B37.2 Candidiasis of skin and nail H92.09 Otalgia, unspecified ear Office Visit 12/18/2015 1:00p [facility] Internal Jeremiah Spanish, G40.909 Epilepsy , unsp, Medicine - [place] not intractable, [address] without status epilepticus R05 Cough Office Visit 11/14/2015 3:00p [place] Aleks Baker, G40.909 Epilepsy, unsp, [facility] MD not intractable, without status epilepticus F41.9 Anxiety disorder, unspecified Office Visit 10/30/2015 3:30p [facility] Internal Jeremiah Spanish, J01.90 Acute sinusitis, Medicine - [place] unspecified [address] H66.92 Otitis media, unspecified, left ear Office Visit 10/11/2015 10:00a 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 Internal Jeremiah Zendejas, K59.1 Functional Medicine - [place] [address] diarrhea [address] G40.909 Epilepsy, unsp, not intractable, without status epilepticus Office Visit 08/14/2015 11:30a [facility] Internal Jeremiah Spanish, N92.6 Irregular Medicine - [place] menstruation, [address] unspecified R35.0 Frequency of micturition Office Visit 06/22/2015 2:30p [facility] Internal Jeremiah Spanish, 522.0 Pulpitis Medicine - [place] Office Visit 06/13/2015 3:00p [facility] Internal Jeremiah Spanish, 345.90 Epilepsy Unspec Medicine - [place] W/O Intractable [address] 300.02 Anxiety Disorder Generalized 780.39 Convulsions Other 300.00 Anxiety State Unspec Office Visit 05/16/2015 10:30a [facility] Internal Jeremiah Spanish, 462 Pharyngitis Acute Medicine - [address] Office Visit 05/09/2015 11:00a [facility] Internal Jeremiah Spanish, 380.13 Ear Infection Medicine - [place] External Acute [address] Other 462 Pharyngitis Acute 461.1 Sinusitis Acute Frontal 786.2 Cough 784.0 Headache 380.10 Otitis Externa Infective Unspec Office Visit 03/17/2015 11:00a [facility] Internal Jeremiah Spanish, 780.4 Dizziness & Medicine - [place] [address] 300.11 Conversion Disorder Office Visit 03/06/2015 2:00p [facility] Internal Jeremiah Spanish, 381.4 Otitis Media Acute Medicine - [place] Or Chronic [address] Nonsuppurative 461.1 Sinusitis Acute Frontal 784.0 Headache 780.4 Dizziness & Giddiness Office Visit 03/02/2015 [place]/Scooter Blanco 345.90 Epilepsy Unspec 1:45p Neurologic Serv Of Pablo Yadav W/O Intractable [facility] 300.11 Conversion Disorder Office Visit 02/14/2015 11:30a [facility] Internal Jeremiah Zendejas, 780.4 Dizziness & Medicine - [place] [address] Office Visit 02/02/2015 3:00p [facility] Internal Jeremiah Zendejas, 698.9 Pruritic Disorder Medicine - [place] [address] Un[address] 702.8 Dermatoses Other Spec Office Visit 01/16/2015 2:30p [facility] Internal Jeremiah Zendejas, 698.8 Pruritic Medicine - [place] Conditions Spec Rd Other 300.02 Anxiety Disorder Generalized 698.9 Pruritic Disorder Unspec Office Visit 01/13/2015 1:30p [facility] Internal Jeremiah Zendejas, 698.8 Pruritic Medicine - [place] Conditions Spec Rd Other 493.10 Asthma Intrinsic Unspecified 698.9 Pruritic Disorder Unspec Office Visit 12/15/2014 [place]/Scooter Alonzo SBryant 345.90 Epilepsy Unspec 2:30p Neurologic Serv Of Pablo Yadav W/O Intractable [facility] Office Visit 12/07/2014 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 Internal Medicine - Jeremiah Spanish, ROG[place] 133.0 Scabies [place] 698.8 Pruritic Conditions Spec Other 690.18 Seborrheic Dermatitis Other Office Visit 09/26/2014 11:30a [facility] Internal Jeremiah Zendejas, 461.9 Sinusitis Acute Medicine - [place] Unspec [place] 786.2 Cough 311 Depressive Disorder Not Elsewhere Spec Office Visit 08/30/2014 1:30p [facility] Internal Jeremiah Zendejas, 311 Depressive Medicine - [place] Disorder Not [place] Elsewhere Spec 786.2 Cough Office Visit 08/22/2014 11:30a [facility] Internal Jeremiah Spanish, 466.0 Bronchitis Acute Medicine - [place] 311 Depressive Disorder Not Elsewhere Spec 280.9 Iron Deficiency Anemia Unspec Office Visit 08/18/2014 [place]/Scooter Blanco 345.90 Epilepsy Unspec 9:30a Neurologic Serv Of Pablo Yadav W/O Intractable [facility] [employer] Office Visit 08/09/2014 [facility] Internal Medicine Dinorah 780.79 Malaise And 10:00a - Sonya Lorenzo M.D. Fatigue Other 300.02 Anxiety Disorder Generalized 345.90 Epilepsy Unspec W/O Intractable 278.00 Obesity Unspec V17.49 Family HX Of Other Cardiovascular Diseases 268.9 Vitamin D Deficiency Unspec 493.10 Asthma Intrinsic Unspecified Office Visit 06/16/2013 3:30p [place] Aleks Blanco 345.90 Epilepsy Unspec [facility] Pablo Yadav W/O Intractable 300.02 Anxiety Disorder Generalized Office Visit 02/25/2013 11:50a [facility] Internal Yudi 345.91 Epilepsy Unspec W/ Medicine - Pablo Carlin Intractable [place] 493.90 Asthma Unspec W/O Status Asthmaticus 300.00 Anxiety State Unspec Office Visit 02/17/2013 11:15a [place] Aleks Blanco 345.90 Epilepsy Unspec Services Of Lodge Officer Pablo Yadav W/O Intractable Office Visit 02/11/2013 1:00p [facility] Internal Dinorah Lorenzo 345.91 Epilepsy Unspec Elizabeth Phillips M.D. W/ Intractable [place] Office Visit 11/18/2012 9:30a [place] [facility] Fidel Muhammad 786.50 Pain Chest Unspec Of [facility] Pablo Goodwin, FACC, FASNC 785.1 Palpitations Office Visit 11/17/2012 Scooter Blanco 345.40 Local-Related 9:30a Neurologic Pablo Yadav Epilepsy W/O [facility] Mention Of Intractable Epilepsy 346.10 Migraine Common W/O Intractable W/O Status Migrainosus Office Visit 10/27/2012 11:00a [facility] Internal Tanvir 780.4 Dizziness & Medicine Alan Vizcarra M.D. Giddiness [place] Office Visit 09/28/2012 11:20a [facility] Internal Tanvir 493.90 Asthma Unspec W/ O Medicine Alan Vizcarra M.D. Status [place] Asthmaticus 466.0 Bronchitis Acute Office Visit 09/07/2012 [facility] Internal [place] 346.92 Migraine 2:40p Elizabeth Vizcarra M.D. Unspecified, W/Out [place] Mention Intractable Migraine Office Visit 09/01/2012 [place] Blanco 345.91 Epilepsy Unspec W/ 11:00a Neurologic Pablo Yadav Intractable [facility] Office Visit 08/31/2012 [facility] Internal Tanvir 427.89 Cardiac 11:40a Elizabeth Vizcarra M.D. Dysrhythmia Other [place] 346.92 Migraine Unspecified, W/Out Mention Intractable Migraine Office Visit 08/20/2012 12:10p [facility] Internal Yudi Raegan, 300.00 Anxiety State Medicine Alan Shah Unspec [place] 493.90 Asthma Unspec W/O Status Asthmaticus 401.9 Hypertension Unspec V06.1 Txuobbydij-Bsyaiep-Rxbkqmjv Combined (DTaP) Office 07/20/2012 [facility] Internal Yudi V04.81 Need For Prophylactic Visit 11:50a Elizabeth Carlin M.D. Vaccination & [place] Inoculation/Influenza 345.90 Epilepsy Unspec W/O Intractable 300.00 Anxiety State Unspec 493.90 Asthma Unspec W/O Status Asthmaticus 401.9 Hypertension Unspec Plan of Treatment Future Appointment(s):11/11/2018 3:40 pm - MOSHE Doherty at [facility] Internal Medicine - [address]12/08/2018 11:00 am - [place] Yadav M.D. at [place] [facility]10/21/2018 - MOSHE DohertyJ01.90 Acute sinusitis , unspecifiedNew Medication:Fluticasone Propionate 50 mcg/Act - use 2 sprays in each nostril one time a dayNasal Hillman 12 Hour 0.05 % - 2 sprays each nostril 2x daily as needed for congestionCefuroxime Axetil 250 mg - 1 tab by mouth twice a day for 7 daysComments:You likely have an infection of your sinuses.I sent RX for an antibiotics.We recommend to increase rest and fluid intake.You may take Tylenol or Ibuprofen to reduce the pain and discomfort.You may use nasal saline rinse few times a day. We discussed to hold Flonase for nowFollow up:1 -2 [id number] CoughNew Medication:Robitussin 12 Hour Cough Relief 30 mg/5ML - 5 ml po bid as neededComments:I am sending in an RX for Guaifenesin I will also give you a steroid nasal spray to treat nasal congestion that may be causing the cough when you lie down. Topical [place]: honey, ezekiel, licorice, cough drops or syrups are locally soothing. Their use is not supported by scientific evidence. It is important that you keep well hydrated. I recommend topical treatments: ezekiel, licorice, honey, cough fijmrE34.92 Otitis media, unspecified, left earNew Medication:Cefuroxime Axetil 250 mg - 1 tab by mouth twice a day for 7 days
[2018-10-23 13:42] VITALS: BP 155/97
--- NOTE | 2018-10-23 14:07 | UC ---
Respiratory Complaint HPI - HPI Summary HPI Summary: 1 week of bilateral ear pain, dry cough and sore throat/pain with swallowing. No fever, nausea/vomiting. - History of Current Complaint Chief Complaint: UCGeneralIllness Stated Complaint: SORE THROAT COUGH EAR PAIN CONGESTION Time Seen by Provider: 10/23/18 13:56 Hx Obtained From: Patient Hx Last Menstrual Period: 10/16/18 Onset/Duration: Gradual Onset, Lasting Days, Still Present Timing: Constant Severity Initially: Moderate Severity Currently: Moderate Pain Intensity: 10 Pain Scale Used: 0-10 Numeric Character: Cough: Nonproductive Aggravating Factors: Recumbent Position Alleviating Factors: Nothing Associated Signs And Symptoms: Positive: URI, Nasal Congestion. Negative: Dyspnea, Fever - Allergies/Home Medications Allergies/Adverse Reactions: Allergies Allergy/AdvReac Type Severity Reaction Status Date / Time amoxicillin [From Augmentin] Allergy Hives Verified 10/23/18 13:44 blueberry Allergy Hives/Diff. Verified 10/23/18 13:44 Breathing/I tching clavulanic acid Allergy Hives Verified 10/23/18 13:44 [From Augmentin] clindamycin Allergy Hives Verified 10/23/18 13:44 coconut Allergy Hives/Diff. Verified 10/23/18 13:44 Breathing/I tching formoterol [From Dulera] Allergy Hives Verified 10/23/18 13:44 iohexol [From Omnipaque] Allergy Hives Verified 10/23/18 13:44 latex Allergy Hives Verified 10/23/18 13:44 lemon oil Allergy Vomiting Verified 10/23/18 13:44 metronidazole Allergy Hives Verified 10/23/18 13:44 paroxetine [From Paxil] Allergy Swelling Verified 10/23/18 13:44 Penicillins Allergy Shortness Verified 10/23/18 13:44 of Breath sertraline [From Zoloft] Allergy Hives Verified 10/23/18 13:44 watermelon Allergy Hives/Diff. Verified 10/23/18 13:44 Breathing/I tching zonisamide Allergy Hives Verified 10/23/18 13:44 pickle Allergy Hives/Diff. Uncoded 10/23/18 13:44 Breathing/I tching PSEUDOEPHEDRINE Allergy Unknown Uncoded 10/23/18 13:44 Reaction Details Home Medications: Home Medications Blood-Glucose Meter [Blood Glucose Monitoring] 1 kit XX DAILY 10/23/18 [History Confirmed 10/23/18] Calcium Citrate/Vitamin D3 [Calcium Citrate-Vit D Caplet] 1 each PO DAILY [History Confirmed 10/23/18] Ferrous Sulfate TAB* 325 mg PO DAILY 10/23/18 [History Confirmed 10/23/18] Omeprazole CAP* [Prilosec CAP* 20 MG] 20 mg PO DAILY 10/23/18 [History Confirmed 10/23/18] PMH/Surg Hx/FS Hx/Imm Hx Endocrine History: Diabetes, Hypothyroidism Respiratory History: COPD, Asthma Psychological History: Anxiety, Depression Other History Of: Negative For: HIV, Hepatitis B, Hepatitis C - Surgical History Surgical History: Yes Surgery Procedure, Year, and Place: Scalp Cystectomy May 2014, Abdominal Lipoma May 2014 - Family History Known Family History: Negative: Renal Disease, Seizure Disorder - Social History Alcohol Use: None Substance Use Type: None Smoking Status (MU): Former Smoker Type: Cigarettes Have You Smoked in the Last Year: No - Immunization History Most Recent Influenza Vaccination: Fall 2014 Most Recent Tetanus Shot: 2014 Most Recent Pneumonia Vaccination: unknown Review of Systems All Other Systems Reviewed And Are Negative: Yes Constitutional: Positive: Negative ENT: Positive: Sore Throat, Ear Ache, Nasal Discharge Respiratory: Positive: Cough Cardiovascular: Positive: Negative Gastrointestinal: Positive: Negative Physical Exam Triage Information Reviewed: Yes Appearance: Well-Appearing, No Pain Distress, Well-Nourished Vital Signs: Initial Vital Signs Temp 98.5 F 10/23/18 13:39 Pulse 81 10/23/18 13:39 Resp 18 10/23/18 13:39 BP 155/97 10/23/18 13:39 Pulse Ox 99 10/23/18 13:39 Laboratory Tests 10/23/18 14:04 Group A Strep Rapid Negative Vital Signs Reviewed: Yes Eyes: Positive: Conjunctiva Clear ENT: Positive: Hearing grossly normal, Pharynx normal, Other - RIGHT TM NORMAL. LEFT TM ERYTHEMA Neck: Positive: Supple, Nontender, No Lymphadenopathy Respiratory Exam: Normal Cardiovascular Exam: Normal Abdomen Description: Positive: Soft Musculoskeletal: Positive: No Edema Neurological: Positive: Alert Psychological: Positive: Age Appropriate Behavior Skin: Negative: Rashes UC Diagnostic Evaluation - Laboratory O2 Sat by Pulse Oximetry: 99 Respiratory Course/Dx - Differential Dx/Diagnosis Provider Diagnosis: Left otitis media, Upper respiratory infection Discharge - Sign-Out/Discharge Documenting (check all that apply): Patient Departure All imaging exams completed and their final reports reviewed: No Studies - Discharge Plan Condition: Stable Disposition: HOME Prescriptions: Azithromycin 500 mg PO DAILY #5 tab Codeine Phosphate/Guaifenesin [Codeine-Guaifen 10-100 mg/5 ml] 5 - 10 ml PO Q6H PRN #100 ml MDD 40ML PRN Reason: Cough Patient Education Materials: Ear Infection (ED), Upper Respiratory Infection ( ED) Referrals: Tanvir Vizcarra MD [Primary Care Provider] - If Needed Additional Instructions: STREP TEST NEGATIVE. WE WILL COVER YOUR EAR INFECTION WITH ANTIBIOTICS. TAKE IT FOR THE FULL COURSE. REST, HYDRATE, OTC MEDS NEEDED. WILL ALSO GIVE COUGH MEDICINE PER REQUEST. SEEK FOLLOW-UP WITH YOUR PCP IF YOU ARE NOT IMPROVING OVER THE NEXT 1-2 WEEKS. - Billing Disposition and Condition Condition: STABLE Disposition: Home
== END 2018-10-23 14:31 | disposition home or self-care (01) ==
LOC: UCEAST 13:33
DX: H66.92 Otitis media, unspecified, left ear (principal); J06.9 Acute upper respiratory infection, unspecified; J44.9 Chronic obstructive pulmonary disease, unspecified; J45.909 Unspecified asthma, uncomplicated; E11.9 Type 2 diabetes mellitus without complications; Z88.0 Allergy status to penicillin; Z88.1 Allergy status to other antibiotic agents; Z91.041 Radiographic dye allergy status; Z91.040 Latex allergy status; Z91.018 Allergy to other foods; Z88.8 Allergy status to other drugs, medicaments and biological substances; Z87.891 Personal history of nicotine dependence
CPT/HCPCS: 87651; 99212; G0463

== ENCOUNTER 2018-12-05 18:12 | Emergency (ER) | payer OTHER ==
--- OUTSIDE RECORDS SUMMARY | 2018-12-05 18:44 | XMS REPORT | Continuity of Care Document ---
:1980 External Reference #:[id number] Author Name Elinor Lockwood Care Team Providers Name Role Phone Donna Peguero M.D. Primary Care Physician Unavailable Payers Type Date Identification Numbers Payment Provider Subscriber Effective: Policy Number: [id number] [place] Dean Peng 2012 Medicaid PayID: [id number] [address] [address] [place] [address] Advance Directives Type Date Description Status Comment [...] Use Denies Drug Use Smoking Status Reviewed: 11/17/18 Patient is a former smoker Allergies, Adverse [...] Active Products 04/22/2018 Tylenol Active face swells 11/17/2018 Codeine Active 11/17/2018 Amoxicillin Active Medications Medication Date Status Form Strength Qnty SIG Indications Ordering Provider Neomycin/Polym 11/17 Active Solution [id number] 10ml 2 drops in H60.93 Donna Peguero, yxin/Hydrocort /2019 -1 affected MD limon (Otic) ear twice a day for 5 days as needed Fluticasone 10/21 Active Suspension 50mcg/Act 16uni use 2 J01.90 Zsofia Propionate ts sprays in [place] each nostril one time a day Robitussin 12 10/21 Active Suer 30mg/5ML 89ml 5 ml po R05 Zsofia Hour Cough bid as [place] Relief needed Nasal [place] 10/21 Active Solution 0.05% 30ml 2 sprays J01.90 Zsofia Hour each [place] nostril 2x daily as needed for congestion Benzonatate 08/19 Active Capsules 100mg 30cap take 1 tab R05 Zsofi s by mouth [place] three times a day as needed for cough True Focus 08/17 Active Strips 100un use as Donna Peguero its directed MD Monitoring last ov Blood Glucose 08/19/18 Test Strips dx True Metrix Go 08/17 Active Kit w/Device 1unit use daily Zsofia Blood Glucose s as [place] Meter directed last visit: 08/19/18 Ventolin HFA 07/15 Active Aerosol 108(90Bas 8gm 2 puffs by J45.30 ofi e) mouth four [place] mcg/Act times a day as needed Guards 05/08 Active Misc 1unit use mouth K13.79 Zsofi s guard at [place] night Vitamin C 05/08 Active Tablets 500mg 60tab Take One D50.9 Zsofia s Tablet By [place] Mouth Twice A Day Citalopram 03/12 Active Tablets 40mg 30tab Take One Zsofia Hydrobromide s Tablet By [place] Mouth Every Day Meclizine HCL 03/10 Active Tablets 25mg 90tab take 1/2-1 H81.399 Zsofia s tablet by [place] mouth three times a day as needed Calcium 02/18 Active Tablets 600-400mg 180ta take one J00 Zsofia Carbonate-Esther /2017 -Unit bs tablet by [place] min D mouth twice a day with food Doxepin HCL 09/12 Active Capsules 10mg 120ca 4 capsules G43.909 Christoph /2016 ps every Adrien, M.DBryant night at bedtime Ibuprofen 06/24 Active Tablets 800mg 90tab take one Zsofia s tablet [place] three times daily as needed. Omeprazole 09/[address] 20mg 30cap [...] Active Nebulizer (2.5mg/3M 100un inhale the Baldev Barrett /2011 L) 0.083% its contents Adams, of one M.D.,FACP vial via nebulizer every 4 to 6 hours as needed Lamotrigine 07/21 Active Tablets 100mg 210ta 3 by mouth Clinton S. /2011 bs every Leif, morning M.D. and 4 every night at bedtime Levothyroxine 00/00 Active Tablets 75mcg 1 by mouth E03.9 Unknown Sodium /0000 every day Doxycycline 10/22 Hx Capsules 100mg 20cap take 1 tab Zsofia Monohydrate /2017 s po bid for [place] Bell - 10 days 11/17 Cefuroxime 10/21 Hx Tablets 250mg 14tab 1 tab by H66.92 Zsofia Axetil /2017 s mouth [place] - twice a 10/22 day for days J01.90 Doxycycline 08/19/2018 - Hx Tablets 100mg 14tabs 1 tab by J01.90 Zsofia Monohydrate 11/17/2018 mouth twice Ray, a day for 7 [employer] days Breo Ellipta 08/11/2018 - Hx Aerosol 100-25m 30units inhale 1 Comfort 11/17/2018 cg/Inh puff by Cotton, mouth once M.D. daily Advair Diskus 07/21/2018 - Hx Aerosol 100-50m 60units inhale 1 [place] 08/11/2018 cg/Dose dose by roxi Vizcarra twice M.D. a day Flovent HFA 07/15/2018 - Hx Aerosol 44mcg/A 10.600gm 2 act twice J45.30 Zsofia 07/21/2018 ct a day daily Ray, for 2 week [employer] rinse after use Cephalexin 07/15/2018 - Hx Capsules 500mg 30caps take 1 tab L03.116 Zsofia 07/15/2018 three times Ray, a day for 10 [employer] days Sulfamethoxazole 07/15/2018 - Hx Tablets 800-160 14tabs 1 tab po bid L03.116 Zsofia /Trimethoprim DS 08/19/2018 mg x 7 days Ray, [employer] Prednisone 01/21/2018 - Hx Tablets 10mg 20tabs 4 tabs every [facility] 01/29/2018 day for 2 D. ez Bonner, then M.D.,FACP reduce by 1 tab every 2 days until finished Arnuity Ellipta 01/21/2018 - Hx Aerosol 100mcg/ 30units 1 puff [facility] 11/17/2018 Act inhaled D. Kailey, every day M.D.,FACP Calcium 10/20/2017 - Hx Tablets 600-400 180tabs take one [place] Carbonate-Vitami 01/01/2018 mg-Unit tablet by maricel Vizcarra mouth twice M.D. a day with food Doxycycline 07/23/2017 - Hx Tablets 100mg 20tabs 1 by mouth Other Hyclate 08/02/2017 twice a day Ordering x 10 days Provider Acetaminophen-Co 07/23/2017 - Hx Tablets 300-30m 10tabs 1 tab by Unknown deine #3 09/11/2017 g mouth q 6 hrs day as needed pain Zonisamide 07/18/2017 - Hx Capsules 100mg 60caps 2 tabs po G43.909 [place] Blanco 01/01/2018 [facility] Pablo Yadav Doxycycline 06/18/2017 - Hx Capsules 100mg 14caps 1 cab twice R30.0 Tanvir Hyclate 07/17/2017 a day Pablo Vizcarra Nitrofurantoin 06/10/2017 - Hx Capsules 100mg 14caps take one Other Macrocrystal 06/17/2017 capsule Ordering twice daily Provider for 7 days. Zonisamide 04/18/2017 - Hx Capsules 25mg 120caps 1 po qhs for G43.Shayy9 Clinton Pearce. 06/18/2017 1 wk then 2 [place], qhs for 1 wk M.D. then 3 qhs for 1 wk then 4 qhs Azithromycin 04/08/2017 - Hx Tablets 250mg 6tabs 2 tab today J06.9 Tanvri 04/10/2017 and then Pachikara, 1tab daily M.D. Meclizine HCL 04/08/2017 - Hx Tablets 12.5mg 60tabs 1-2 tab two H81.393 [place] 07/15/2018 times a day Pablo Vizcarra Levothyroxine 04/08/2017 - Hx Tablets 25mcg 45tabs take one E03.9 [place] Sodium 01/21/2018 tablet by Zackery, mouth every M.D. morning Lidocaine 04/02/2017 - Hx Solution 2% 200ml swish and K08.89 Marito E. Viscous 04/10/2017 spit 15cc up Dyana, to three M.D. times a day as needed Ketorolac 03/31/2017 - Hx Tablets 10mg 3tabs take 1 by Bekah Tromethamine 04/10/2017 mouth every Cowdery, 8 hours as M.D. needed for migraine. take with food. Ondansetron HCL 03/31/2017 - Hx Tablets 4mg 10tabs one by mouth Malu Ryan 07/15/2018 every 8 D. Adams, hours as M.D.,FACP needed for nausea Clindamycin HCL 03/25/2017 - Hx Capsules 300mg 40caps 1 tabs by K05.00 Tanvir 04/10/2017 mouth every Pachikara, 6h M.D. Vicodin 03/25/2017 - Hx Tablets 5-300mg 20tabs 1 tab every K05.00 Tanvir 05/21/2017 12 hours Pablo Vizcarra Citalopram 03/17/2017 - Hx Tablets 10mg 30tabs Take One [place] Hydrobromide 03/12/2018 Tablet By Zackery Mouth Every M.D. Day Along With 20 MG Tablet To Equal Total Daily Dose Of 30 MG Calcium 600+D 10/31/2016 - Hx Tablets 600-400 180tabs 1 tab by J00 Tanvir 02/18/2018 mg-Unit mouth twice Pachikara, a day take Pablo w/ meal Topiramate 10/17/2016 - Hx Tablets 100mg 75tabs 1 po qam and G43.909 [place] S. 03/18/2017 1 1/2 qhs Pablo Yadav Robitussin 12 10/10/2016 - Hx Suer 30mg/5M 118ml 1-2 teaspoon Dl Ramey Hour Cough 11/17/2018 L at night as Pachikara, Relief needed Pablo Naproxen 05/03/2016 - Hx Tablets 250mg 60tabs 1 tablet by M79.632 Jeremiah 05/13/2016 mouth twice Swedish, TRA[employer]ELING [employer]ENGER AGENT a day as needed pain, with foods Prednisone 03/26/2016 - Hx Tablets 20mg 5tabs 1 tablets by J02.9 Jermeiah 05/03/2016 mouth daily Swedish, [employer]EL[employer]ENGER [employer]ENT x's 5 days in the morning Meclizine HCL 03/26/2016 - Hx Tablets 25mg 45tabs 1 tablet tid H81.319 Jeremiah 04/09/2016 every 6-8 Swedish, TRAVELING [employer]ENGER [employer] hours as needed Ventolin HFA 03/13/2016 - Hx Aerosol 108(90B 1units 2 puffs by Malu Ryan 11/17/2018 [facility]) mouth four D. Kailey, mcg/Act times a day Pablo,FACP as needed Escitalopram 03/11/2016 - Hx Tablets 10mg 30tabs 1/2 tab po F33.9 Malu Ryan Oxalate 03/14/2016 qd for 1 wk Ebony Bonner, then 1 by Pablo,FACP mouth every day Venlafaxine HCL 02/22/2016 - Hx Tablets 37.5mg 22tabs 75 mg for 1 F33.9 Jeremiah 03/13/2016 week, then Swedish, TRAVELING P[employer]ENGER [employer]ENT 37.5 mg for 1 week, then stop. Zofran Odt 01/01/2016 - Hx Tablets 4mg 12tabs 1 odt by R11.2 Jeremiah 01/02/2016 Dispers mouth every Swedish, TRA[employer]GER [employer]ENT 6 hours as needed nausea no more than 3 daily Drisdol 12/25/2015 - Hx Capsules 11184Bt 8caps 1 tab by Jeremiah 02/22/2016 it mouth once a Swedish, [employer] week x's 8 weeks Nystop 12/20/2015 - Hx Powder 454131X 1units apply B37.2 Jeremiah 02/22/2016 nit/GM topically to Swedish, JANNIE rash twice a day until rash resolved Cefdinir 10/30/2015 - Hx Capsules 300mg 20caps 1 capsule J01.90 Jeremiah 11/09/2015 twice a day Swedish, [employer]ELING [employer]GER [employer]ENT x's 10 days Ipratropium 10/30/2015 - Hx Solution 0.03% 1units instill 2 J01.90 Jeremiah Rinard 11/13/2015 sprays in Swedish, [employer] each nostril three times a day as needed nasal congestion Penicillin V 10/12/2015 - Hx Tablets 500mg 20tabs 1 tablet by Jeremiah Potassium 10/22/2015 mouth bid JANNIE Zendejas x10 days Clindamycin HCL 10/11/2015 - Hx Capsules 300mg 30caps 1 capsule by J02.9 Jeremiah 10/12/2015 mouth three Swedish, [employer]GER [employer]ENT times a day x's 10 days Cepacol Sore 10/11/2015 - Hx Lozenges 5.4mg J02.9 Jeremiah Throat 10/16/2015 Swedish, TRAVELING P[employer]ENGER AGENT Freestyle 09/28/2015 - Hx Misc 100units test bs once Zsofi Lancets 08/16/2018 daily and as Ray, needed [employer] Freestyle System 09/28/2015 - Hx Kit 250.02 Jeremiah 08/16/2018 Swedish, TRAVELING PASSENGER AGENT Freestyle Test 09/28/2015 - Hx Strips 100units test strips Zsofia 08/16/2018 use daily as Ray, directed [employer] Topiramate 09/10/2015 - Hx Caps 25mg 90caps take 3 by G43.909 Clinton Blanco 10/17/2016 Sprinkle mouth at [place], bedtime M.D. Naproxen 08/24/2015 - Hx Tablets 500mg 14tabs 1 tab by Jeremiah 11/13/2015 mouth every Swedish, JANNIE 12 hours. prn Benzonatate 08/22/2015 - Hx Capsules 100mg 30caps 1 tab by R05 Zsofia 07/15/2018 mouth three Ray, times a day [employer] as needed J00 [place] 07/05/2015 - Hx Tablets 7.5-325mg 6tabs 1 tab every Jeremiah 07/08/2015 6 hours up Swedish, to twice a [employer]GER [employer] day x3 days [place] 06/22/2015 - Hx Tablets 7.5-325mg 30tabs 1 tab every 522. Jeremiah 07/05/2015 6 hours prn 0 Swedish, pain TRAVELING P[employer]GER [employer]ENT Nystatin 05/26/2015 - Hx Suspension [id number]/ 225ml swish and Jermeiah 06/05/2015 ML swallow 5ml Swedish, four times TRAVELING [employer]ENGER [employer]ENT a day x's 10 days Clindamycin HCL 05/16/2015 - Hx Capsules 300mg 30caps 1 capsule 462 Jeremiah 05/26/2015 by mouth Swedish, three times [employer]GER [employer]ENT a day x's 10 days Medrol (Tj) 05/16/2015 - Hx Tablets 4mg 1tabs take as 462 Jeremiah 05/26/2015 prescribed Swedish, TRA[employer]EL[employer]GER AGENT Amoxicillin 05/09/2015 - Hx Tablets 875mg 20tabs take one 380. Jeremiah 05/19/2015 tablet by 13 Swedish, mouth twice [employer]GER [employer] a day x's 10 days Cheratussin ac 05/09/2015 - Hx Syrup 100-10mg/5M 120ml 1-2 786. Jeremiah 05/19/2015 L teaspoon by 2 Swedish, mouth every [employer]GER [employer]ENT 4 to 6 hours as needed cough Amoxicillin 03/06/2015 - Hx Tablets 875mg 14tabs take one 381. Jeremiah 03/17/2015 tablet by 4 Swedish, mouth twice [employer] a day x's 7 days Darlyn Allergy 03/06/2015 - Hx Tablets 180mg 30tabs 1 tab by 461. Jeremiah 03/17/2015 mouth daily 1 Swedish, x's 4-6 TRAVEL[employer] weeks Zyrtec Allergy 02/10/2015 - Hx Capsules 10mg 30caps 1 by mouth Tanvir 02/14/2015 every day Bunny mckenzie M.D. Hydroxyzine HCL 02/02/2015 - Hx Tablets 25mg 2 tab by 698. Jeremiah 02/02/2015 mouth every 8 Swedish, 6 hours as TRAVELING [employer]ENGER AGENT needed for itching Ranitidine HCL 02/02/2015 - Hx Capsules 150mg 60caps 1 capsule 698. Jeremiah 03/06/2015 po bid 9 Swedish, TRAVELING P[employer]ENGER AGENT Darlyn Allergy 02/02/2015 - Hx Tablets 180mg 60tabs 2 tab by 698. Tanvir 02/10/2015 mouth daily 9 Bunny mckenzie M.D. Prednisone 02/02/2015 - Hx Tablets 10mg 30tabs 5 698. Jeremiah 02/12/2015 pillsx's2da 9 Swedish, ys, TRAVELING P[employer]ENGER AGENT 4pillsx's2d ays, 3pillsx's2d ays, 2pillsx's2d ays,1pillx' s2days,then stop Hydroxyzine HCL 01/26/2015 - Hx Tablets 25mg 56tabs 2 tab by 698. Jeremiah 02/02/2015 mouth every 8 Swedish, 6 hours as TRAVELING P[employer]ENGER AGENT needed for itching Triamcinolone 01/23/2015 - Hx Cream 0.1% 30G apply Jeremiah Acetonide 01/26/2015 topically Swedish, twice a day TRAVELING P[employer]ENGER AGENT to affected sites Lorazepam 01/16/2015 - Hx Tablets 0.5mg 15tabs 1 by mouth Claudia, 01/16/2015 tid as Jean Claude needed , DO Lorazepam 01/16/2015 - Hx Tablets 0.5mg 15tabs 1 by mouth Swedish, 01/16/2015 tid as Jeremiah needed TRAVELING P[employer]ENGER AGENT Alprazolam 01/16/2015 - Hx Tablets 0.5mg 60tabs 1/2-1 tab Jeremiah 03/17/2015 by mouth Swedish, twice a day TRAVELING [employer]ENGER AGENT as needed Hydrocortisone 01/16/2015 - Hx Cream 1% 1tube apply tid Jeremiah Plus 01/26/2015 daily until Swedish, rash TRAVELING P[employer]ENGER AGENT resolved Hydroxyzine HCL 01/13/2015 - Hx Tablets 25mg 56tabs 2 tab by 698. Jeremiah 01/16/2015 mouth every 8 Swedish, 6 hours as TRAVELING P[employer]ENGER AGENT needed for itching Ranitidine 150 01/13/2015 - Hx Tablets 150mg 30tabs 1 tablet po 698. Jeremiah Maximum Strength 02/02/2015 qd until 8 Swedish, hives TRAVELING P[employer]ENGER AGENT resolve Tudorza Pressair 01/13/2015 - Hx Aerosol 400mcg/Act 1units 1 493. Jeremiah 02/02/2015 inhalation 10 Swedish, po qd [employer]VELING P[employer]GER [employer]ENT Alprazolam 01/05/2015 - Hx Tablets 0.5mg 20tabs 1 PO daily Jeremiah 01/16/2015 Dispers Swedish, TRAVELING P[employer]ENGER AGENT Vitamin D 12/11/2014 - Hx Tablets 1000Unit 30tabs 1 by mouth J00 Jeremiah 10/31/2016 every day Swedish, TRAVELING P[employer]ENGER AGENT Polytrim 12/07/2014 - Hx Solution 40884-6.1Un 1units 1 drop left 372. Jeremiah 12/12/2014 it/ML-% eye every 00 Swedish, four hours TRAVELING P[employer]ENGER AGENT while awake x's 5 days Hydroxyzine HCL 10/11/2014 - Hx Tablets 25mg 56tabs 2 tab by 698. Jeremiah 01/13/2015 mouth every 8 Swedish, 6 hours as TRAVELING P[employer]ENGER AGENT needed for itching Permethrin 10/11/2014 - Hx Cream 5% 1units apply from 133. Jeremiah 12/07/2014 neck to 0 Swedish, toes TRAVELING P[employer]ENGER AGENT topically leave on 8-14 hours then bath off. repeat in 7 days. Clarithromycin 09/29/2014 - Hx Tablets 500mg 14tabs 1 tab po Jeremiah 10/06/2014 bid x's 7 Swedish, days TRAVELING P[employer]ENGER AGENT Afrin 12 Hour 09/29/2014 - Hx Solution 0.05% 1units 2-3 sprays Jeremiah 12/07/2014 both nares Swedish, every 12 TRAVELING P[employer]ENGER AGENT hours as needed rhinorhea Amoxicillin/Clavu 09/26/2014 - Hx Tablets 875-125mg 20tabs 1 tablet by 461. Jeremiah lanate Potassium 09/29/2014 mouth twice 9 Swedish, a day x's TRAVELING P[employer]ENGER AGENT 10 days Cheratussin ac 09/26/2014 - Hx Syrup 100-10mg/5M 120ml 1-2 786. Jeremiah 10/01/2014 L teaspoon by 2 Swedish, mouth every TRAVELING P[employer]ENGER AGENT 4 to 6 hours as needed cough Citalopram 08/30/2014 - Hx Tablets 20mg 30tabs Take One F33. Tanvir Hydrobromide 03/12/2018 Tablet By 9 Pachikar Mouth Every a, M.D. Day Along With 10 MG Tablet To Equal Total Daily Dose Of 30 MG Citalopram 08/22/2014 - Hx Tablets 40mg 30tabs 1 tablet po 311 Jeremiah Hydrobromide 08/30/2014 daily Swedish, TRAVELING P[employer]ENGER AGENT Prednisone 08/18/2014 - Hx Tablets 20mg 10tabs 2 by mouth Unknown 09/26/2014 every day Cheratussin ac 08/18/2014 - Hx Syrup 100-10mg/5M 236ml 1-2 tsp by Jeremiah 09/26/2014 L mouth every Swedish, 4 to 6 TRAVELING P[employer]GER [employer]ENT hours as needed cough Zithromax 08/18/2014 - Hx Tablets 250mg 11tabs 1 tab take Unknown 09/26/2014 2 on day 1, then 1 daily Sertraline HCL 12/16/2013 - Hx Tablets 100mg 30tabs 1 po qd Clinton S. 08/09/2014 Pablo Yadav Sertraline HCL 07/12/2013 - Hx Tablets 50mg 45tabs take 1.5 po Dedra Aparicio 12/16/2013 qd Pablo Rea Sertraline HCL 06/16/2013 - Hx Tablets 25mg 90tabs 3 po qhs Clinton S. 07/12/2013 Pablo Yadav Symbicort 02/25/2013 - Hx Aerosol 160-4.5mcg/ 1units 2 puff 493. Jeremiah 05/09/2015 Act inhaled 90 Swedish, twice a day TRAVELING P[employer]ENGER AGENT Keppra 02/11/2013 - Hx Tablets 500mg 30tabs 1 po at 345. Clinton Blanco 06/16/2013 bedtime 91 Pablo Yadav Spiriva 10/27/2012 - Hx Capsules 18mcg 30caps 1 780. [place] Handihaler 02/25/2013 inhalation 4 Pachikar irineo mckenzie M.D. Prednisone 09/28/2012 - Hx Tablets 10mg 30tabs 5tabx 493. [place] 10/27/2012 2days,4 90 Pachikar [id number] Pablo mckenzie [id number], [id number], 1tabxday. Topamax 09/07/2012 - Hx Tablets 25mg 30tabs 1 tab PO hs 346. [place] 09/28/2012 92 Bunny mckenzie M.D. Symbicort 07/20/2012 - Hx Aerosol 80-4.5mcg/A 1units 2 puff 493. Yudi 02/25/2013 ct inhaled bid 90 Pablo Carlin Sertraline HCL 07/20/2012 - Hx Tablets 50mg 90tabs Take One Yudi 06/16/2013 Tablet By Raegan, Mouth One M.D. Time Daily Lamotrigine - Hx [...] 18mcg 90caps 1 Jeremiah Handihaler 01/13/2015 inhalation Swedish, by mouth TRAVELING P[employer]ENGER AGENT every morning Proair HFA - Hx Aerosol 108(90Base) 1units 2 puffs by Unknown 10/11/2014 mcg/Act mouth every 4 hours as needed Vitamin D3 - Hx Capsules [id number] 8caps 1 by mouth Unknown Maximum Strength 12/11/2014 every week Lorazepam - Hx Tablets 0.5mg 15tabs 1 by mouth Unknown 10/11/2014 tid as needed Cetirizine HCL - Hx Tablets 10mg 1 by mouth Unknown 08/17/2014 every day Omeprazole - Hx Capsules DR 40mg 30caps 1 by mouth Jeremiah 02/02/2015 every day Swedish, TRAVELING P[employer]ENGER AGENT Citalopram - Hx Tablets 20mg 30tabs 1 by mouth Unknown Hydrobromide 08/22/2014 every day Oxymetazoline HCL - Hx Solution 0.05% Unknown 10/11/2014 Hydroxyzine HCL - Hx Tablets 50mg 30tabs 1 po bid if Jeremiah 11/13/2015 needed Swedish, TRAVELING P[employer]ENGER AGENT Lorazepam - Hx Tablets 1mg 1 po q 8 Unknown 06/13/2015 to 12 hours as needed Citalopram - Hx Tablets 20mg Unknown Hydrobromide 03/02/2015 Acetaminophen - Hx Tablets 500mg 240tabs 2 tablets Jeremiah 10/29/2016 every 6-8 Swedish, hours as TRAVELING P[employer]ENGER AGENT needed for pain Dulera - Hx Aerosol 100-5mcg/Ac 2 puff Unknown 06/13/2015 t twice a day Zithromax - Hx Tablets 500mg one by Unknown 08/14/2015 mouth one per day Flonase Allergy - Hx Suspension 50mcg/Act 9.900ml 2 Tanvir Relief 11/17/2018 intranasal Pachikar twice a day a, M.D. Keflex - Hx Capsules 500mg 1 by mouth Unknown 10/11/2015 three times a day Robitussin Chest - Hx Syrup 100mg/5ML 118ml 1-2 Ashvin-Fern Congestion 10/10/2016 teaspoon at l D. night as Adams, needed M.D.,FAC P Ra Motion - Hx Tablets 25mg 30tabs take 1/2 Jeremiah Sickness Relief 04/08/2017 tab by Swedish, mouth three [employer]VELING P[employer]ENGER AGENT times daily if needed for vertigo Nitrofurantoin [...] Code Status Date Vaccine Reaction Lot # [id number] Given 08/19/2018 Influenza Virus Vaccine, [id number] Quadrivalent, Split, Preservative Free [id number] Given 07/28/2018 Influenza Virus Vaccine, Quadrivalent, Split, Preservative Free 82030 Given 07/28/2018 Influenza Virus Vaccine, Quadrivalent, Split, Preservative Free 70942 Given 01/21/2018 Influenza Virus Vaccine, [id number] Quadrivalent, Split, Preservative Free 41990 Given 10/16/2017 Pneumonia Vaccine no reaction, pt [id number] tolerated well Q2035 Given 10/16/2015 Afluria Vaccine 46036 Given 08/20/2012 Tdap - [id number] Tetanus/Diptheria/Acellula r Pertussis Q2038 Given 07/20/2012 Fluzone Vaccine [id number] Q2035 Ordered 07/04/2016 Afluria Vaccine Vital Signs Date Vital Result Comment 11/17/2018 2:52pm Height 67 inches 5'7" Weight 340.50 lb Heart Rate 83 /min BP Systolic 120 mmHg BP Diastolic 90 mmHg Body Temperature 97.7 F O2 % BldC Oximetry 97 % BMI (Body Mass Index) 53.3 kg/m2 10/21/2018 1:07pm Height 67 inches 5'7" Weight [...] Date Facility Test Result H/L Range Note Laboratory test 11/17/2018 [facility] Rapid Strep A <pending> finding [address] [place] [address] [phone] Laboratory test 10/23/2018 [facility] Rapid Strep Negative Negative [address] [place] [address] [phone] Laboratory test 06/25/2018 [facility] TSH (Thyroid 3.56 mcIU/mL N 0.34-5.[address] Stim Horm) [place] [address] [phone] CBC Auto Diff 06/25/2018 [facility] White Blood 6.9 10^3/uL N 3.5-10.[address] [place] [address] [phone] Red Blood Count 3.80 10^6/uL Low 4.00-5.40 [...] 0-2 Nucleated Red Blood Cells % 0.1 Iron & Iron Binding 06/25/2018 [facility] Iron 52 g/dL N 50- [address] [place] [address] [phone] Unsaturated Iron Binding 280 g/dL Total Iron Binding Capacity 332 g/dL N 250-450 Transferrin 237 mg/dL N 203-362 % Iron Saturation 16 % N 15-55 Vitamin B12 And 05/01/2018 [facility] Vitamin B12 537 pg/mL N 180-914 2 Folate Serum [address] [place] [address] [phone] Folic Acid (Folate) 6.33 ng/mL >3.99 Laboratory test 05/01/2018 [facility] Ferritin 14.5 ng/mL N 11 -[address] [place] [address] [phone] CBC Auto Diff 05/01/2018 [facility] White Blood 4.7 10^3/uL N 3.5-10.[address] [place] [address] [phone] Red Blood Count 3.74 10^6/uL Low 4.00-5.40 [...] Blood Cells % 0 Lipid Profile 05/01/2018 [facility] Triglycerides 221 mg/dL 3 (Trig/Chol/HDL) [address] [place] [address] [phone] Cholesterol 171 mg/dL 4 HDL Cholesterol 26.6 mg/dL 5 LDL Cholesterol 100 mg/dL 6 Iron & Iron Binding 05/01/2018 [facility] Iron 32 g/dL Low 50-[address] [place] [address] [phone] Unsaturated Iron Binding 298 g/dL Total Iron Binding Capacity 330 g/dL N 250-450 Transferrin 236 mg/dL N 203-362 % Iron Saturation 10 % Low 15-55 Laboratory 05/01/2018 [facility] TSH (Thyroid 6.43 High 0.34- 5.[address] Stim Horm) mcIU/[place] [address] [phone] Lipid Profile 04/22/2018 [facility] Triglycerides 177 mg/dL 8 (Trig/Chol/HDL ) [place] [address] [phone] Cholesterol 172 mg/dL 9 HDL Cholesterol 34.1 mg/dL 10 LDL Cholesterol 103 mg/dL 11 Laboratory test 04/22/2018 [facility] TSH (Thyroid 4.16 mcIU/mL N 0.34-5.60 finding Stim Horm) [place] [address] [phone] CBC Auto Diff 04/22/2018 [facility] White Blood 7.5 10^3/uL N 3.5-10.8 [place] [address] [phone] Red Blood Count 3.55 10^6/uL Low 4.00-5.40 [...] Red Blood Cells % 0 Laboratory 04/10/2018 [facility] Rapid Strep Negative Negative [address] [place] [address] [phone] Laboratory 04/10/2018 [facility] Rapid Strep A SEE RESULT [address] [place] [address] [phone] Laboratory 04/02/2018 [facility] Lamotrigine 15.9 g/mL 2.5 - 15.[address] (Lamictal) [place] [address] [phone] Comp Metabolic 04/02/2018 [facility] Sodium 137 mmol/L Low 139 -[address] [facility] [place] [address] [phone] Potassium 4.0 mmol/L N 3.5-5.0 Chloride 104 [...] Egfr Non- 83.6 >60 Egfr 107.5 >60 15 Laboratory test 03/10/2018 [facility] Lamotrigine 13.1 g/mL 2.5 - 16 finding [facility] miiCard (Lamictal) 15.0 [place] [address] [phone] Laboratory test 08/25/2017 [facility] TSH (Thyroid 1.89 N 0.34 -5.[address] Stim Horm) mcIU/mL 0 [place] [address] [phone] Laboratory test 07/22/2017 [facility] Hemoglobin A1c 5.2 % N Less [address] (Glyco HGB) than 6.0 [place] [address] [phone] Comp Metabolic 07/22/2017 [facility] Sodium 137 mmol/L N 133- [address] [place] [address] [phone] Potassium 4.1 mmol/L N 3.5-5.0 Chloride 105 [...] 72.2 N >60 Egfr 92.8 N >60 18 Urine Culture And 06/18/2017 [facility] Urine Culture SEE RESULT [address] [place] [address] [phone] Ua Routine 06/18/2017 [employer] [facility] [employer] [facility] Ua Specific 1.015 [place] Ua PH 6 Ua Color martín Ua Appera cloudy Ua WBC trace Ua Protein trace Ua Glucose neg Ua Ketones neg Ua Bilirubin neg Ua Urobilinogen neg Ua Nitrite neg Ua Occult Blood large Laboratory test 04/08/2017 [facility] Thyroglobulin AB <1.8 IU/ mL N <4.0 [address] [place] [address] [phone] Thyroperoxidase AB 315.57 IU/mL High <9 Free T4 (Free Thyroxine) 0.67 ng/dL N 0.61-1.12 TSH (Thyroid Stim Horm) 4.16 mcIU/mL N 0.34-5.60 Laboratory test 04/04/2017 [facility] Monospot Negative N Negative finding [address] [place] [address] [phone] Comp Metabolic 04/04/2017 [facility] Sodium 138 mmol/L N 133- 145 Panel [address] [place] [address] [phone] Potassium 3.7 mmol/L N 3.5-5.0 Chloride 107 [...] 86.6 N >60 Egfr 111.4 N >60 21 Urinalysis Profile 04/04/2017 [facility] Urine Color Yellow N [address] [place] [address] [phone] Urine Appearance Cloudy N Urine Specific [place] 1.019 N 1.010-1.030 Urine pH 7.0 N [...] Cell Present Abnormal Absent Urine Culture And 04/04/2017 [facility] Urine Culture SEE RESULT [address] [place] [address] [phone] Laboratory test 04/04/2017 [facility] Magnesium 1.8 mg/dL Low 1.9-[address]7 [place] [address] [phone] Troponin-I (TnI) 0.00 ng/mL N <0.04 23 TSH (Thyroid Stim Horm) 6.69 mcIU/mL High 0.34-5.60 CBC Auto Diff 04/04/2017 [facility] White Blood 8.2 10^3/uL N 3.5-10.[address] [place] [address] [phone] Red Blood Count 3.94 10^6/uL Low 4.0-5.4 [...] Cells % 0 N Laboratory test 04/04/2017 [facility] Lactic Acid 1.7 mmol/L N 0.5-2.0 [address] [place] [address] [phone] Rapid Strep A SEE RESULT BELOW 25 Laboratory test 04/04/2017 [facility] Rapid Strep Negative N Negative [address] [place] [address] [phone] CBC Auto Diff 10/02/2016 [facility] White Blood 6.9 10^3/uL N 3.5-10.[address] [place] [address] [phone] Red Blood Count 4.03 10^6/uL N 4.0-5.4 [...] Cells % 0 N Comp Metabolic Panel 10/02/2016 [facility] Sodium 136 mmol/L N 133-[address] [place] [address] [phone] Potassium 3.8 mmol/L N 3.5-5.0 Chloride 108 [...] 74.5 N >60 Egfr 95.9 N >60 27 Laboratory test 10/02/2016 [facility] Lamotrigine 12.6 g/mL N 2.5 - [address] (Lamictal) 15.0 [place] [address] [phone] Topomax (Topiramate) 2.3 g/mL N 29 Inr/Protime 03/10/2016 [facility] Inr 1.10 N 0.89-1.[address] [place] [address] [phone] Laboratory test 03/10/2016 [facility] Magnesium 2.2 mg/dL N 1.9-2.[address] [place] [address] [phone] Lipase 8 U/L Low 11.0-82.0 Creatine Kinase(CK) 63 U/L N 10-223 C Reactive Protein 14.41 mg/L High < 5.00 30 Troponin-I (TnI) 0.00 ng/mL N <0.03 31 Laboratory test 03/10/2016 [facility] HCG < 0.60 mIU/ mL N [address] [place] [address] [phone] TSH (Thyroid Stim Horm) 1.40 ?IU/mL N 0.34-5.60 B-Type Natriuretic Peptide BNP 18 pg/mL N 33 Lamotrigine (Lamictal) 14.9 g/mL N 2.5 - 15.0 34 Laboratory test 03/10/2016 [facility] Partial 31.7 seconds N 26.0-36.[address] [place] [address] [phone] Lactic Acid 1.3 mmol/L N 0.5-2.0 35 Comp Metabolic Panel 03/10/2016 [facility] Sodium 137 mmol/L N 133-[address] [place] [address] [phone] Potassium 3.7 mmol/L N 3.5-5.0 Chloride 108 [...] 72.6 N >60 Egfr 93.4 N >60 36 CKMB 03/10/2016 [facility] CKMB ng/mL 1.1 ng/mL N 0.6-6.[address] [place] [address] [phone] CBC Auto Diff 03/10/2016 [facility] White Blood 9.6 10^3/uL N 3.5-10.[address] [place] [address] [phone] Red Blood Count 4.58 10^6/uL N 4.0-5.4 [...] Blood Cells % 0 N Laboratory test 02/26/2016 [facility] Vitamin D 31.3 ng/mL N 30-[address] Total 25(Oh) [place] [address] [phone] CBC Auto Diff 01/01/2016 [facility] White Blood 8.8 10^3/uL N 3.5-10.[address] [place] [address] [phone] Red Blood Count 4.00 10^6/uL N 4.0-5.4 [...] % 0 N Basic Metabolic Panel 01/01/2016 [facility] Sodium 138 mmol/L N 133-145 [address] [place] [address] [phone] Potassium 4.0 mmol/L N 3.5-5.0 Chloride 108 mmol/L N 101-111 Co2 Carbon Dioxide 22 mmol/L N 22-32 Anion Gap 8 mmol/L N 2-11 Glucose 92 mg/dL N 70-100 Blood Urea Nitrogen 9 mg/dL N 6-24 Creatinine 0.75 mg/dL N 0.51-0.95 BUN/Creatinine Ratio 12.0 N 8-20 Calcium 9.2 mg/dL N 8.6-10.3 Egfr Non- 88.5 N >60 Egfr 113.8 N >60 37 Laboratory test 01/01/2016 [facility] Alkaline 78 U/L N 34- 104 finding [address] [facility] [place] [place] [address] [phone] Laboratory test 12/25/2015 [facility] Glucose 98 mg/dL N 70- 100 38 finding [address] [place] [address] [phone] Laboratory test 12/25/2015 [facility] Vitamin D Total 25.9 Low 30-50 39 finding [address] [facility] 25(Oh) ng/[place] [address] [phone] TSH (Thyroid Stim Horm) 4.01 ?IU/mL N 0.34-5.60 40 Lipid Profile 12/25/2015 [facility] Triglycerides 214 mg/dL N 41 (Trig/Chol/HDL) [address] [place] [address] [phone] Cholesterol 177 mg/dL N 42 HDL Cholesterol 37.5 mg/dL N 43 LDL Cholesterol 97 mg/dL N 44 Laboratory test 12/20/2015 [facility] Cytology SEE RESULT BELOW 45 finding [address] [place] [address] [phone] HPV Rna Ww/Reflex Genotype Negative N Negative 46 Urinalysis Profile 08/14/2015 [facility] Urine Color Yellow N [address] [place] [address] [phone] Urine Appearance Cloudy N Urine Specific [place] 1.013 N 1.010-1.030 Urine pH 6.0 N [...] Cell Present Abnormal Absent Laboratory test 08/14/2015 [facility] Urine Culture And SEE RESULT [address] [place] [address] [phone] Laboratory test 08/14/2015 [facility] Beta HCG (BHCG) < 0.60 N finding [address] Quantitative mIU/[place] [address] [phone] CBC Auto Diff 06/11/2015 [facility] White Blood Count 6.3 10^3/ uL N 4.8-[address] 0.8 [place] [address] [phone] Red Blood Count 4.38 10^6/uL N 4.0-5.4 [...] Cells % 0.1 N Laboratory test 06/11/2015 [facility] HCG Qualitative Negative N Negative [address] [place] [address] [phone] Urinalysis 06/11/2015 [facility] Urine Color Yellow N Profile [address] [place] [address] [phone] Urine Appearance Cloudy N Urine Specific [place] 1.026 N 1.010-1.030 Urine pH 5.0 N [...] Epithelial Cell Present Abnormal Absent Laboratory 06/11/2015 [facility] Lactic Acid 1.0 mmol/L N 0.5- 2.2 test finding [address] [place] [address] [phone] Urine Drug SCR 06/11/2015 [facility] Amphetamine Ur None N None Detect ED & Pain [address] [place] [place] [address] [phone] Barbiturates Urine Screen None Detected N None Detect Benzodiazepine Urine Screen None Detected N None Detect Urine Cannabinoids Screen None Detected N None Detect Urine Cocaine Screen None Detected N None Detect Urine Opiates Screen Presumptive Posi <SEE NOTE> Abnormal None Detect 49 Urine Phencyclidine Screen None Detected N None Detect 50 Laboratory test 06/11/2015 [facility] Lamotrigine 11.0 g/mL N 2.5 - [address] (Lamictal) 15.0 [place] [address] [phone] Urine Culture And Sensitivities SEE RESULT BELOW 52 Laboratory test 05/16/2015 [facility] Culture SEE RESULT [address] [place] [address] [phone] CBC Auto Diff 03/16/2015 [facility] White Blood 8.6 10^3/uL N 4.8-[address] Count .8 [place] [address] [phone] Red Blood Count 4.41 10^6/uL N 4.0-5.4 [...] Cells % 0 N Laboratory test 03/16/2015 [facility] Monospot Negative N Negative [address] [place] [address] [phone] CBC Auto Diff 03/09/2015 [facility] White Blood 6.8 10^3/uL N 4.8-10.[address] [place] [address] [phone] Red Blood Count 4.28 10^6/uL N 4.0-5.4 [...] % 0 N Comp Metabolic Panel 03/09/2015 [facility] Sodium 136 mmol/L N 133-145 [address] [place] [address] [phone] Potassium 4.0 mmol/L N 3.5-5.0 Chloride 107 [...] 91.8 N >60 Egfr 118.1 N >60 55 Urinalysis Profile 02/16/2015 [facility] Urine Color Yellow N [address] [place] [address] [phone] Urine Appearance Cloudy N Urine Specific [place] 1.017 N 1.010-1.030 Urine pH 6.0 N [...] Urine Squamous Epithelial Cell Present Abnormal Absent CBC Auto 02/16/2015 [facility] White Blood 11.5 10^3/uL High 4.8-10.[address] [place] [address] [phone] Red Blood Count 4.32 10^6/uL N 4.0-5.4 [...] Nucleated Red Blood Cells % 0 N Urine Culture And 02/16/2015 [facility] Urine Culture (SEE NOTE ) [address] [place] [address] [phone] Comp Metabolic 02/16/2015 [facility] Sodium 139 mmol/L N 133- [address] 5 [place] [address] [phone] Potassium 4.3 mmol/L N 3.5-5.0 Chloride 106 [...] 90.4 N >60 Egfr 116.2 N >60 57 Laboratory test 02/16/2015 [facility] Magnesium 2.0 mg/dL N 1.9-2.[address] [place] [address] [phone] TSH (Thyroid Stimulating Horm) 1.87 IU/mL N 0.34-5.60 Lamotrigine 7.8 g/mL N 2.5 - 15.0 58 CBC Auto 02/14/2015 [facility] White Blood 13.0 10^3/uL High 4.8-10.[address] [place] [address] [phone] Red Blood Count 4.32 10^6/uL N 4.0-5.4 [...] % 0.1 N Comp Metabolic Panel 02/14/2015 [facility] Sodium 136 mmol/L N 133-[address] [place] [address] [phone] Potassium 4.5 mmol/L N 3.5-5.0 Chloride 103 [...] 83.8 N >60 Egfr 107.8 N >60 59 Laboratory test 01/26/2015 [facility] Surgical RUN DATE: [address] Pathology 02/02/ [place] [address] <SEE NOTE> [phone] Surgical 01/26/2015 [facility] S RUN DATE: [address] 02/02/ [place] [address] <SEE NOTE> [phone] Laboratory test 12/28/2014 [facility] Lamotrigine 12.4 N 2.5 [address] g/[place] [address] 15.0 [phone] Laboratory test 12/07/2014 [facility] Lamotrigine 9.5 g/mL N 2.5 [address] [place] [address] 15.0 [phone] Vitamin D 1,25 12/07/2014 [facility] Vitamin D 98 pg/mL Abnormal 18-7 64 And Vitamin D,[address] 1,25-Dihydroxy 8 [place] [address] [phone] Vitamin D, 25 12/07/2014 [facility] 25-Hydroxy 73 ng/mL N Hydroxy [address] Vitamin D2 [place] [address] [phone] 25-Hydroxy Vitamin D3 6.3 ng/mL N 25-Hydroxy Vitamin D Total 79 ng/mL N 65 Laboratory test 12/07/2014 [employer] Hemoglobin A1c 5.1 5-7 finding Lipid Panel - J[facility] 08/10/2014 Creatine Kinase 76 U/L N 10-223 66, 67 Comp Metabolic 08/10/2014 Sodium 137 mmol/L N 133-145 Panel Potassium 4.2 mmol/L N 3.7-5.6 Chloride 105 [...] 83.1 N >60 Egfr 106.9 N >60 68 Lipid Profile (Trig/Chol/HDL) 08/10/2014 Triglycerides 150 mg/dL N 69 Cholesterol 159 mg/dL N 70 HDL Cholesterol 26.7 mg/dL N 71 LDL Cholesterol 102 mg/dL N 72 Vitamin D, 25 Hydroxy 08/10/2014 25-Hydroxy Vitamin D2 41 ng/mL N 25-Hydroxy Vitamin D3 6.3 ng/mL N 25-Hydroxy Vitamin D Total 47 ng/mL N 73 Iron & Iron Binding Capacity 08/10/2014 Iron 46 g/dL Low 50-212 Unsaturated Iron Binding 361 g/dL N Total Iron Binding Capacity 407 g/dL N 250-450 % Iron Saturation 11 % Low 15-55 Laboratory test finding 08/10/2014 Ferritin < 10.0 ng/mL Low 11-307 74 Vitamin B12 460 pg/mL N 180-914 75 Folate 11.39 ng/mL N >3.99 76 Laboratory test 08/10/2014 TSH (Thyroid 2.24 IU/mL N 0.34-5.60 77 finding Stimulating Horm) CBC Auto Diff 08/10/2014 [...] Cells % 0.1 N Comp Metabolic Panel 01/10/2014 [facility] Sodium 139 mmol/L 133-[address] [place] [address] [phone] Potassium 3.9 mmol/L 3.7-5.6 Chloride 107 mmol/L [...] Egfr Non- 88.2 >60 Egfr 113.4 >60 78 CBC Auto Diff 01/10/2014 [facility] White Blood 8.7 10^3/uL 4.8-10.[address] [place] [address] [phone] Red Blood Count 4.28 10^6/uL 4.0-5.4 Hemoglobin [...] Blood Cells % 0 Laboratory test 10/28/2013 [facility] Lamotrigine 8.4 g/mL 2.5 - 15.0 [address] [place] [address] [phone] Laboratory test 09/01/2013 [facility] Lamotrigine 7.6 g/mL 2.5 - 15.0 [address] [place] [address] [phone] Laboratory test 05/29/2013 [facility] Lamotrigine 10.9 g/mL 2.5 - 15.0 [address] [place] [address] [phone] Urine Culture 05/28/2013 [facility] Urine Culture (SEE NOTE) [address] Sensitivities [place], [place] [address] [phone] Laboratory test 12/15/2012 [facility] Lamotrigine 5.2 g/mL 2.5 - 15.0 [address] [place] [address] [phone] Laboratory test 10/22/2012 [facility] Serum Negative Negative [address] [place] [address] [phone] Urine Culture 10/22/2012 [facility] Urine Culture (SEE NOTE) [address] [place] [address] [phone] Throat-Beta 09/25/2012 [facility] Throat Beta (SEE NOTE) [address] [place] [address] [phone] Laboratory test 09/03/2012 [facility] Lamotrigine 3.9 g/mL 2.5 - 15.0 [address] [place] [address] [phone] Comp Metabolic 07/14/2012 [facility] Sodium 138 mmol/L 135- [address] [place] [address] [phone] Potassium 4.3 mmol/L 3.5-5.0 Chloride 106 mmol/L 101-111 Co2 (Carbon Dioxide) 28.0 mmol/L 22-32 Anion Gap 4.0 mmol/L 2-11 88 Glucose 93 mg/dL 70-100 BUN 10 mg/dL 6-24 Creatinine 0.8 mg/dL 0.50-1.40 One Over Creatinine 1.25 BUN/Creatinine Ratio 12.5 8-20 Calcium 9.4 mg/dL 8.1-9.9 Total Protein 6.8 GM/DL 6.2-8.1 Albumin 3.9 GM/DL 3.6-5.4 Globulin 2.9 GM/DL 2-4 Albumin/Globulin Ratio 1.3 1-3 Bilirubin Total 0.5 mg/dL 0.4-1.5 89 Alkaline Phosphatase 59 U/L 30-110 Alt (SGPT) 16 U/L 14-54 Ast (Sgot) 19 U/L 12-42 eGFR Non- 84.2 > 60 eGFR 108.3 > 60 90 CBC No Diff 07/14/2012 [facility] White Blood Count 8.2 CUMM 4.8-10.8 [address] [place] [address] [phone] Red Cell Count 3.83 CUMM Low 4.2-5.4 Hemoglobin 12.3 g/dL 12.0-16.0 Hematocrit 37 % 35-47 Mean Corpuscular Volume 96 um3 79-97 Mean Corpuscular Hemoglob 32 pg High 27-31 Mean Corpuscular HGB Cone 34 g/dL 32-36 Redcell Distribution WDTH 15 % 10.5-15 Platelet Count 312 CUMM 150-450 Mean Platelet Volume 8.6 um3 7.4-10.4 Laboratory test 07/14/2012 [facility] Lamotrigine 3.8 g/mL 2.5 - 15.0 91 finding [address] [place] [address] [phone] 1 [employer] Director: [id number] Normal Range 180 to 914 Indeterminate Range 145 to 180 Deficient Range <145 3 Desirable: <150 Borderline High: 150-199 High: 200-499 Very High: >500 4 Desirable: <200 Borderline High: 200-239 High: >239 5 Low: <40 Desirable: 40-60 High: >60 6 Desirable: <100 Near Optimal: 100-129 Borderline High: 130-159 High: 160-189 Very High: >189 7 FASTING 10 HOUR 8 Desirable: <150 Borderline High: 150-199 High: 200-499 Very High: >500 9 Desirable: <200 Borderline High: 200-239 High: >239 10 Low: <40 Desirable: 40-60 High: >60 11 Desirable: <100 Near Optimal: 100-129 Borderline High: 130-159 High: 160-189 Very High: >189 12 [employer] Director: [id number] 13 SEE RESULT BELOW Name: DEAN PENG Lee : [address]: Cydney Chen MD Acct: [id number] Unit: [id number] AGE: 37 Location: ED Re04/10/18 SEX: F Status: REG ER SPEC: [id number] DEBBIE: 04/10/[address] [facility] [address]: Cydney Chen MD REQ: [id number] RECD: 04/10/18 STATUS: TOMASA COCHRAN DR: Tanvir Vizcarra MD _ SOURCE: THROAT SPDESC: ORDERED: Strep A Request Procedure Result Reported Site Rapid Strep A Request Final 04/10/18236 ML Specimen received for Rapid Strep A Molecular testing * ML - Main Lab . END OF REPORT DEPARTMENT OF PATHOLOGY, [address] [place] [address] Ty Guo M.D. Director [facility] # [id number] 14 ADDITIONAL INFORMATION This test was developed and its performance characteristics determined by [facility] in a manner consistent with CLIA requirements. This test has not been cleared or approved by the U.S. Food and Drug Administration. Test Performed by: [facility] - [address] [address] 15 Because ethnic data is not always readily [...] 15-29 5 Kidney failure <15 (or dialysis) 16 ADDITIONAL INFORMATION This test was developed and its performance characteristics determined by [facility] in a manner consistent with CLIA requirements. This test has not been cleared or approved by the U.S. Food and Drug Administration. Test Performed by: [facility] [address] [facility], [place] [address] 17 Therapeutic target for the treatment of diabetes Mellitus patients is <7% HBA1C, and in selective patients <6.0%.Please refer to [place] [employer] Diabetic care guidelines for further information. 18 Because ethnic data is not always readily [...] 15-29 5 Kidney failure <15 (or dialysis) 19 SEE RESULT BELOW Name: GINETTEDEAN Lee : [address]: Tanvir Vizcarra MD Acct: [id number] Unit: [id number] AGE: 36 Location: [facility] Re06/18/17 SEX: F Status: REG REF SPEC: [id number] DEBBIE: 06/18/17-[address] [facility] [address]: Tanvir Vizcarra MD REQ: [id number] RECD: 06/18/17 STATUS: COMP _ SOURCE: URINE SPDES: ORDERED: Urine Culture COMMENTS: [id number] Urine Source: Random Procedure Result Reported Site Urine Culture Final 06/19/17- 1623 ML No growth of clinically significant organisms * ML - MAIN LAB ([facility]) . END OF REPORT * ML=Testing performed at Main Lab DEPARTMENT OF PATHOLOGY, [address] [place] [address] Ty Guo M.D. Director [facility] # [id number] 20 ADDITIONAL INFORMATION The thyroglobulin antibody testing method is an immunoenzymatic assay manufactured by [employer] and performed on the [employer] DXI 800. Values obtained from different assay methods or kits may be different and cannot be used interchangeably. The results cannot be interpreted as absolute evidence for the presence or absence of malignant disease. Test Performed by: [facility] - [address] [address] 21 Because ethnic data is not always [...] 5 Kidney failure <15 (or dialysis) 22 SEE RESULT BELOW Name: DEAN PENG : [address]: Vance Garnett DO Acct: [id number] Unit: [id number] AGE: 36 Location: ED Re04/04/17 SEX: F Status: DEP ER SPEC: [id number] DEBBIE: 04/04/17-[address]: Vance Garnett DO REQ: [id number] RECD: 04/04/17 STATUS: TOMASA COCHRAN DR: [facility] Baldev Bonner MD _ SOURCE: URINE SPDESC: ORDERED: Urine Culture Procedure Result Reported Site Urine Culture Final 04/06/17- 919 ML No growth of clinically significant organisms * ML - MAIN LAB ([facility]) . END OF REPORT * ML=Testing performed at Main Lab DEPARTMENT OF PATHOLOGY, [address] [place] [address] Ty Guo M.D. Director [facility] # [id number] 23 99th percentile=0.04 ng/mL Troponin results at [facility] and [facility] are not interchangeable. 24 [facility] Severe Sepsis and Septic Shock Management Bundle Measure requires all lactic acids initially measuring >2.0 mmol/L be repeated. 25 SEE RESULT BELOW Name: DEAN PENG : [address]: [facility] Acct: [id number] Unit: [id number] AGE: 36 Location: ED Re04/04/17 SEX: F Status: REG ER SPEC: [id number] DEBBIE: 04/04/[address]: Vance Garnett DO REQ: [id number] RECD: 04/04/17 STATUS: TOMASA COCHRAN DR: [facility] Baldev Bonner MD _ SOURCE: THROAT SPDESC: ORDERED: Strep A Request Procedure Result Reported Site Rapid Strep A Request Final 04/04/17- 1047 ML Specimen received for Rapid Strep A Molecular testing * ML - MAIN LAB ([facility]) . END OF REPORT * ML=Testing performed at Main Lab DEPARTMENT OF PATHOLOGY, [address] [place] [address] Ty Guo M.D. Director [facility] # [id number] 26 [employer] Director: [id number] 27 Because ethnic data is not always readily [...] 15-29 5 Kidney failure <15 (or dialysis) 28 ADDITIONAL INFORMATION This test was developed and its performance characteristics determined by [facility] in a manner consistent with CLIA requirements. This test has not been cleared or approved by the U.S. Food and Drug Administration. Test Performed by: [facility] [place] [address] Epilepsy Physician: Kenrick Hightower II, M.D., Ph.D. 29 REFERENCE VALUE Reference values depend on clinical use: Anticonvulsant: 5.0-20.0 mcg/mL Psychiatric: 2.0-8.0 mcg/mL ADDITIONAL INFORMATION This test was developed and its performance characteristics determined by [facility] in a manner consistent with CLIA requirements. This test has not been cleared or approved by the U.S. Food and Drug Administration. Test Performed by: [facility] [place] [address] Epilepsy Physician: Kenrick Hightower II, M.D., Ph.D. 30 Acute inflammation: >10.00 31 Reference Range and Interpretation: TnI (ng/mL) Interpretation Less Than 0.03 ng/mL Not supportive of diagnosis of [place] 0.03 - 0.50 ng/mL Indeterminate: suggest serial studies if clinically indicated. Greater than 0.5 ng/mL Consistent with diagnosis of [place] 32 <5.0 Negative 5.0 - 25.0 Indeterminate (Repeat testing recommended after 72 hours) >25.0 Positive Perimenopausal women can display HCG levels of up to 20 mIU/mL 33 >100 to <200 pg/mL: likely compensated congestive heart failure (CHF) 200 to 400 pg/mL: likely moderate CHF >400 pg/mL: likely moderate to severe CHF 34 Test Performed by: [place] [address] Epilepsy Physician: Kenrick Hightower II, M.D., Ph.D. 35 [facility] Severe Sepsis and Septic Shock Management Bundle Measure requires all lactic acids initially measuring >2.0 mmol/L be repeated. 36 Because ethnic data is not always [...] 5 Kidney failure <15 (or dialysis) 37 Because ethnic data is not always readily [...] 15-29 5 Kidney failure <15 (or dialysis) 38 FASTING 10 HOUR 39 FASTING 10 HOUR 40 FASTING 10 HOUR 41 Desirable <150 Borderline high 150-199 High 200-499 Very High >500 42 Desirable <200 Borderline high 200-239 High >239 43 Low <40 Desirable: 40-60 High: >60 44 Desirable: <100 mg/dL Near Optimal: 100-129 mg/dL Borderline High: 130-159 mg/dL High: 160-189 mg/dL Very High: >189 mg/dL 45 SEE RESULT BELOW Name: DEAN PENG : [address]: Jeremiah Zendejas TRAVELING P[employer]ENGER AGENT Acct: [id number] Unit: [id number] AGE: 35 Location: [facility] Re12/20/15 SEX: F Status: REG REF SPEC: [id number] DEBBIE: 12/20/15-[address]: Jeremiah Zendejas TRAVELING PASSENGER AGENT REQ: [id number] RECD: 12/20/15 STATUS: SOUT _ ORDERED: IMAGE [...] and 68. Signed (signature on file) LINH Smith(ASC) 12/22 1032 This Pap test was evaluated with the assistance of the [employer] Imaging System. Due to cytologic findings at the transmitter chief microscope, comprehensive manual rescreening by a Incubator Machine Operator may be required. The Pap Smear is [...] evaluated every 1-3 years. RUN DATE: 12/22/15 [facility] LAB LIVE PAGE 1 Patient: DEAN PENG [id number] (Continued) CONTINUED ON NEXT PAGE * ML=Testing performed at Main Lab DEPARTMENT OF PATHOLOGY, [address] [place] [address] Ty Guo M.D. Director [facility] # [id number] 46 The high-risk HPV types detected by the assay include: 16, 18, 31, 33, 35, 39, 45, 51, 52, 56, 58, 59, 66, and 68. 47 SEE RESULT BELOW Name: DEAN PENG Lee : [address]: Jeremiah Zendejas TRAVELING PASSENGER AGENT Acct: [id number] Unit: [id number] AGE: 34 Location: LAB Re08/14/15 SEX: F Status: REG REF SPEC: [id number] DEBBIE: 08/14/15-[address]: Jeremiah Zendejas NP REQ: [id number] RECD: 08/14/15 STATUS: COMP _ SOURCE: URINE [facility]: ORDERED: Urine Culture Procedure Result Verified Site Urine Culture Final 08/16/15- 1126 ML Organism 1 NORMAL JUDE [place] Count 25-50,000 (Moderate) CFU/ML * ML - MAIN LAB ([facility]) . END OF REPORT * ML=Testing performed at Main Lab DEPARTMENT OF PATHOLOGY, [address] [place] [address] Ty Guo M.D. Director [facility] # [id number] 48 Comment: f 49 Presumptive Positive 50 The urine specimen was tested at the listed cutoffs: Drug class test level (ng/mL) Amphetamines 500 Barbituates 200 Benzodiazepine metabolites 200 Cocaine metabolites 150 Cannabinoids 50 Opiates 300 Pcp 25 This is a screening procedure. Positive results are not confirmed. Specimen was received without chain of custody. Results should be used for medical purposes only. 51 Test Performed by: [facility] - [address] [address] Epilepsy Physician: Kenrick Hightower II, M.D., Ph.D. 52 SEE RESULT BELOW Name: DEAN PENG Lee : [address]: Justin Tom MD Acct: [id number] Unit: [id number] AGE: 34 Location: ED Re06/11/15 SEX: F Status: DEP ER SPEC: [id number] DEBBIE: 06/11/[address] [facility] [address]: Justin Tom MD REQ: [id number] RECD: 06/11/15 STATUS: TOMASA COCHRAN DR: [facility] Jeremiah Zendejas TRAVELING PASSENGER AGENT _ SOURCE: URINE SPDESC: ORDERED: Urine Culture Procedure Result Verified Site Urine Culture Final 06/14/15- 0939 ML Organism 1 NORMAL JUDE [place] Count >100,000 (Many) CFU/ML * ML - MAIN LAB ([facility]) . END OF REPORT * ML=Testing performed at Main Lab DEPARTMENT OF PATHOLOGY, [address] [place] [address] Ty Guo M.D. Director [facility] # [id number] 53 SEE RESULT BELOW Name: DEAN PENG : [address]: Jeremiah Zendejas NP Acct: [id number] Unit: [id number] AGE: 34 Location: [facility] Re05/16/15 SEX: F Status: REG REF SPEC: [id number] DEBBIE: 05/16/15-[address] [facility] [address]: Jeremiah Zendejas NP REQ: [id number] RECD: 05/16/15 STATUS: COMP _ SOURCE: THROAT SPDESC: ORDERED: Throat Culture Procedure Result Verified Site Throat Culture Final 05/18/15- 0752 ML Organism 1 NORMAL JUDE Quantity 2+ Throat cultures are clinically indicated to detect the presence of group A strep, arcanobacterium and yeast. In certain cases, predominating organisms will be reported. * ML - MAIN LAB ([facility]) . END OF REPORT * ML=Testing performed at Main Lab DEPARTMENT OF PATHOLOGY, [address] [place] [address] Ty Guo M.D. Director [facility] # [id number] 54 N 55 Because ethnic data is not always readily [...] 15-29 5 Kidney failure <15 (or dialysis) 56 RUN DATE: 02/19/15 [facility] LAB LIVE PAGE 1 RUN TIME: [address] [place] [address] Specimen Inquiry Name: GINETTEDEAN Lee : [address]: Srinivas Boston MD Acct: [id number] Unit: [id number] AGE: 34 Location: ED Re02/16/15 SEX: F Status: DEP ER SPEC: [id number] DEBBIE: 02/16/[address]: Hernando House DO REQ: [id number] RECD: 02/16/15 STATUS: TOMASA COCHRAN DR: [facility] Marito Turpin III, MD _ SOURCE: URINE SPDESC: ORDERED: Urine Culture Procedure Result Verified Site Urine Culture Final 02/19/15- 0834 ML Organism 1 ESCHERICHIA COLI [place] Count 25-50,000 (Moderate) CFU/ML Organism 2 NORMAL JUDE [place] Count 25-50,000 (Moderate) CFU/ML 1. ESCHERICHIA COLI [...] antibiotic reporting. * ML - MAIN LAB ([facility]) . END OF REPORT * ML=Testing performed at Main Lab DEPARTMENT OF PATHOLOGY, [address] [place] [address] Ty Guo M.D. Director [facility] # [id number] 57 Because ethnic data is not always readily [...] 15-29 5 Kidney failure <15 (or dialysis) 58 Test Performed by: [place] [address] Epilepsy Physician: Kenrick Hightower II, M.D., Ph.D. 59 Because ethnic data is not always readily [...] 15-29 5 Kidney failure <15 (or dialysis) 60 RUN DATE: 02/02/15 [facility] LAB LIVE PAGE 1 RUN TIME: [address] [place] [address] Specimen Inquiry Name: DEAN PENG : [address]: Jeremiah Zendejas TRAVELING PASSENGER AGENT Acct: [id number] Unit: [id number] AGE: 34 Location: [facility] Re01/26/15 SEX: F Status: REG REF SPEC: [id number] DEBBIE: 01/26/15-[address] [facility] [address]: Tanvir Vizcarra MD REQ: [id number] RECD: 01/26/15 STATUS: SHAUN COCHRAN DR: Jeremiah Zendejas TRAVELING PASSENGER AGENT _ ORDERED: GOM METH STN, PASS STAIN, [...] performed at Main Lab DEPARTMENT OF PATHOLOGY, [facility] [address] [place] [address] Ty Guo M.D. Director [facility] # [id number] 61 RUN DATE: 02/02/15 [facility] LAB LIVE PAGE 1 RUN TIME: 1026 [facility] [address] [place], [place] [address] Specimen Inquiry Name: DEAN PENG : [address]: Jeremiah Zendejas NP Acct: [id number] Unit: [id number] AGE: 34 Location: [facility] Re01/26/15 SEX: F Status: REG REF SPEC: DEBBIE: 01/26/15-[address] [facility] [address]: Tanvir Vizcarra MD REQ: [id number] RECD: 01/26/15 STATUS: SHAUN COCHRAN DR: Jeremiah Zendejas TRAVELING PASSENGER AGENT _ ORDERED: GOM METH STN, PASS STAIN, [...] performed at Main Lab DEPARTMENT OF PATHOLOGY, [facility] [address] [place], [place] [address] Ty Guo M.D. Director [facility] # [id number] RUN DATE: 02/02/15 [facility] LAB LIVE PAGE 2 RUN TIME: [address] [place] [address] Specimen Inquiry Patient: DEAN PENG [id number] (Continued) MICROSCOPIC DESCRIPTION (Continued) Signed (signature on file) Griselda Garsia MD 0928 END OF REPORT * ML=Testing performed at Main Lab DEPARTMENT OF PATHOLOGY, [address] [place] [address] Ty Guo M.D. Director [facility] # [id number] 62 Test Performed by: [place] [address] Epilepsy Physician: Kenrick Hightower II, M.D., Ph.D. 63 Test Performed by: [place] [address] Epilepsy Physician: Kurt Hinton M.D. 64 Test Performed by: [facility] [address] [place] [address] Epilepsy Physician: Kurt Hinton M.D. 65 Interpretation: 51-80 ng/mL (increased risk of hypercalciuria) REFERENCE VALUE 25-HYDROXY D TOTAL (D2+D3) Optimum levels in the healthy population are 20-50, patients with bone disease may benefit from higher levels within this range. Test Performed by: [facility] [address] [place] [address] Epilepsy Physician: Kurt Hinton M.D. 66 FASTING 10 HOUR 67 FASTING 10 HOUR 68 Because ethnic data is not always readily [...] 15-29 5 Kidney failure <15 (or dialysis) 69 Desirable <150 Borderline high 150-199 High 200-499 Very High >500 70 Desirable <200 Borderline high 200-239 High >239 71 Low <40 Desirable: 40-60 High: >60 72 Desirable <100 Near Optimal 100-129 Borderline high 130-159 High 160-189 Very High >189 73 REFERENCE VALUE 25-HYDROXY D TOTAL (D2+D3) Optimum levels in the healthy population are 20-50, patients with bone disease may benefit from higher levels within this range. Test Performed by: [place] [address] Epilepsy Physician: Kurt Hinton M.D. 74 FASTING 10 HOUR 75 Normal Range 180 to 914 Indeterminate Range 145 to 180 Deficient Range <145 76 FASTING 10 HOUR 77 FASTING 10 HOUR 78 Because ethnic data is not always readily [...] 15-29 5 Kidney failure <15 (or dialysis) 79 Test Performed by: [place] [address] Epilepsy Physician: Luis Altamirano III, M.D. 80 Test Performed by: [place] [address] Epilepsy Physician: Luis Altamirano III, M.D. 81 Test Performed by: [place] [address] Epilepsy Physician: Luis Altamirano III, M.D. 82 RUN DATE: 05/30/13 [facility] LAB LIVE PAGE 1 RUN TIME: [address] [place] [address] Specimen Inquiry Name: DEAN KEYES : [address]: Momo Diaz MD Acct: [id number] Unit: [id number] AGE: 32 Location: [facility] Re05/28/13 SEX: F Status: DEP ER SPEC: [id number] DEBBIE: 05/28/13-[address]: Momo Diaz MD REQ: [id number] RECD: 05/28/13 STATUS: COMP OTHR DR: Tanvir Vizcarra MD _ SOURCE: URINE SPDESC: ORDERED: Urine Culture QUERIES: Medent Number [id number] Procedure Result Verified Site Urine Culture Final 05/30/13- 1112 ML Organism 1 NORMAL JUDE [place] Count 25-50,000 (Moderate) CFU/ML END OF REPORT * ML=Testing performed at Main Lab DEPARTMENT OF PATHOLOGY, [facility] [address] [place] [address] Ty Guo M.D. Director [facility] Permit #[id number] 83 Test Performed by: [address] [address] Epilepsy Physician: Luis Altamirano III, M.D. 84 This test detects intact HCG only and is indicated for the early detection of . 85 RUN DATE: 10/24/12 [facility] LAB LIVE PAGE 1 RUN TIME: 928 [facility] [address] [place], [place] [address] Specimen Inquiry Name: DEAN KEYES Lee : [address]: Lynette Olivier MD Acct: [id number] Unit: [id number] AGE: 32 Location: [facility] Re10/22/12 SEX: F Status: DEP ER SPEC: [id number] DEBBIE: 10/22/12-[address]: Lynette Olivier MD REQ: [id number] RECD: 10/22/12 STATUS: COMP OTHR DR: GISSELL Carlin MD,Yudi Yadav MD,Clinton Blanco _ SOURCE: URINE [facility]: ORDERED: Urine Culture Procedure Result Verified Site Urine Culture Final 10/24/12- 927 ML Organism 1 STREP GROUP B [place] Count 25-50,000 (Moderate) CFU/ML Organism 2 NORMAL JUDE [place] Count 75-100,000 (Many) CFU/ML Susceptibility testing of penicillins and other B-lactams approved by FDA for treatment of Streptococcus pyogenes (Group A Strep) and Streptococcus agalactiae (Group B Strep) is not necessary for clinical purposes and need not be done routinely, since as with vancomycin, resistant strains have not been recognized. (CLSI N966-A27;p.66) Positive isolates will be saved for one week. Please call the Microbiology Laboratory if further susceptibility testing is needed. END OF REPORT * ML=Testing performed at Main Lab DEPARTMENT OF PATHOLOGY, [address] [place] [address] Ty Guo M.D. Director [facility] Permit #[id number] 86 RUN DATE: 09/27/12 [facility] LAB LIVE PAGE 1 RUN TIME: [address] [place] [address] Specimen Inquiry Name: DEAN KEYES : [address]: Lucas Arce MD Acct: [id number] Unit: [id number] AGE: 31 Location: [facility] Re09/25/12 SEX: F Status: DEP ER SPEC: [id number] DEBBIE: 09/25/[address] [facility] [address]: Lucas Arce MD REQ: [id number] RECD: 09/25/12 STATUS: TOMASA COCHRAN DR: Yudi Chun MD _ SOURCE: THROAT SPDESC: ORDERED: Throat Beta Str Procedure Result Verified Site Throat Beta Strep Culture Final 09/27/12- 0802 ML Negative For Group A Beta Streptococcus END OF REPORT * ML=Testing performed at Main Lab DEPARTMENT OF PATHOLOGY, [address] [place] [address] Ty Guo M.D. Director [facility] Permit #[id number] 87 Test Performed by: [place] [address] Epilepsy Physician: Luis Altamirano III, M.D. R 88 Anion gap measurement may be of limited value in the presence of any alkalosis, especially in a combined acid base disorder. . 89 A metabolite of Naproxen, O-desmethylnaproxen, has been shown to interfere with the Jendrkalieik-Julien method for measuring total bilirubin. Samples from patients who have taken Naproxen have shown spurious elevation in total bilirubin levels. 90 Because ethnic data is not always readily [...] 15-29 5 Kidney failure <15 (or dialysis) 91 Test Performed by: [address] [address] Epilepsy Physician: Luis Altamirano III, M.D. Procedures Date Code Description Status 08/20/2017 67270 Polysomnography Sleep Staging 4+ Parameters Completed 07/03/2016 45655 EEG Monitoring & Video Recording Completed 07/02/2016 05935 EEG Monitoring & Video Recording Completed 07/01/2016 87477 EEG Monitoring & Video Recording Completed 06/30/2016 92287 EEG Monitoring & Video Recording Completed 06/29/2016 50344 EEG Monitoring & Video Recording Completed 06/28/2016 74355 EEG Monitoring & Video Recording Completed 01/15/2016 15281 Pulmonary Function><Bronchodil Completed 12/21/2015 84010 EKG Tracing & Interpretation Completed 12/20/2015 89771 EKG Tracing & Interpretation Completed 01/26/2015 61827 Biopsy Skin Lesion Single Completed 12/28/2014 06849 EEG Recording Awake & Asleep Completed 01/15/2013 60771 ECHO Stress Test Incl Perf Contiuous ekg Monitoring W/Phys Completed Superv 12/15/2012 60962 Cardiac Event Monitor Completed 12/11/2012 55720 ECHO Transthoracic, Real-Time 2D With Doppler And Color Completed Flow 11/18/2012 64724 EKG Tracing & Interpretation Completed 09/03/2012 05751 Holter Monitor Review (24 hr) review & interp only Completed 09/01/2012 37806 Holter Monitor Review (24 hr) review & interp only Completed 08/21/2012 47035 EEG Recording Awake & Asleep Completed Encounters Type Date Location Provider Dx Diagnosis Office Visit 10/21/2018 [facility] Obdulia Doherty.Shayy Acute sinusitis , 1:20p Medicine - [place] [employer] R05 Cough H66.92 Otitis media, unspecified, left ear Office Visit 08/19/2018 1:00p [facility] Obdulia Doherty.90 Acute sinusitis, Medicine - [employer] unspecified [address] [address] R05 Cough Z23 Encounter for immunization Office Visit 07/15/2018 1:20p [facility] Internal Jose Bell, Z00.01 Encounter for Medicine - [place] [employer] general adult Rd medical exam w abnormal findings G47.33 Obstructive sleep apnea (adult) (pediatric) J45.30 Mild persistent asthma, uncomplicated L03.116 Cellulitis of left lower limb M25.562 Pain in left knee D50.9 Iron deficiency anemia, unspecified 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 D17.1 Benign lipomatous neoplasm of skin, subcu of trunk Z68.43 Body mass index (BMI) 50-59.9 , adult Office Visit 05/08/2018 1:40p [facility] Internal Andreaofia E03.9 Hypothyroidism, Medicine - Ray, [employer] [address] D50.9 Iron deficiency anemia, unspecified K13.79 Other lesions of oral mucosa J06.9 Acute upper respiratory infection, unspecified Office Visit 04/22/2018 11:00a [facility] Internal Jose Bell, H81.399 Other peripheral Medicine - [employer] vertigo, [address] unspecified ear G40.909 Epilepsy, unsp, not intractable, without status epilepticus E03.9 Hypothyroidism, unspecified E66.01 Morbid (severe) obesity due to excess calories N92.0 Excessive and frequent menstruation with regular cycle Z13.220 Encounter for screening for lipoid disorders Office Visit 03/10/2018 2:40p [facility] Internal Tanvir H81.399 Other peripheral Elizabeth Vizcarra M.D. vertigo, [address] unspecified ear G40.909 Epilepsy, unsp, not intractable, without status epilepticus Office Visit 01/21/2018 9:40a [facility] Internal Baldev Beck J45.40 Moderate persistent Elizabeth Bonner M.D.,FACP asthma, [address] uncomplicated Z23 Encounter for immunization Office Visit 01/15/2018 [facility] Internal Tanvir E03.9 Hypothyroidism, 1:40p Elizabeth Vizcarra [...] intractable, without status migrainosus Office Visit 10/16/2017 [facility] Internal Tanvir E03.9 Hypothyroidism, 1:40p Elizabeth Vizcarra M.D. unspecified [address] F32.9 Major depressive disorder, single episode, unspecified K21.9 Gastro-esophageal reflux disease without esophagitis E66.01 Morbid (severe) obesity due to excess calories Z23 Encounter for immunization Z68.43 Body mass index (BMI) 50-59.9 , adult Office 09/12/2017 [facility] Clinton Blanco G43.909 Migraine, unsp, Visit 9:15a Clinic Pablo Yadav not intractable, without status migrainosus F44.5 Conversion disorder with seizures or convulsions Office Visit 09/09/2017 9:15a Pulmonology And Diana G47.33 Obstructive sleep [facility] [place] apnea (adult) [facility] (pediatric) E66.01 Morbid (severe) obesity due to excess calories Office Visit 07/21/2017 10:15a [facility] [place], R06.83 Snoring [facility] J44.9 Chronic obstructive pulmonary disease, unspecified E66.01 Morbid (severe) obesity due to excess calories Office 07/18/2017 [facility] Clinton Blanco G43.909 Migraine, unsp, Visit 3:00p Elle Yadav M.D. not intractable, without status migrainosus F44.5 Conversion disorder with seizures or convulsions Office Visit 07/17/2017 [facility] Internal Tanvir E03.9 Hypothyroidism, 1:20p Elizabeth Vizcarra M.D. unspecified [address] E66.01 Morbid (severe) obesity due to excess calories R73.9 Hyperglycemia, unspecified Office Visit 06/18/2017 1:20p [facility] Internal Tanvir Vizcarra, R30.0 Dysuria Medicine - [place] Office Visit 05/15/2017 2:00p [facility] Internal Tanvir Vizcarra, Z00.00 Encntr for Medicine - [place] M.DBryant general adult Rd medical exam w/o abnormal findings D17.9 Benign lipomatous neoplasm, unspecified G47.33 Obstructive sleep apnea (adult) (pediatric) F33.9 Major depressive disorder, recurrent, unspecified Office 04/18/2017 [facility] Clinton Blanco G43.909 Migraine, unsp, Visit 10:15a Elle Yadav M.D. not intractable, without status migrainosus F44.5 Conversion disorder with seizures or convulsions Office Visit 04/08/2017 11:20a [facility] Internal Tanvir Vizcarra, J06.9 Acute upper Medicine - MBryantDBryant respiratory [address] infection, unspecified H81.393 Other peripheral vertigo, bilateral E03.9 Hypothyroidism, unspecified Office Visit 04/02/2017 [facility] Internal Marito Gruber K08.89 Other specified 2:20p Elizabeth Turpin M.D. disorders of teeth [place] and supporting structures Office Visit 03/25/2017 [facility] Internal Tanvir K05.00 Acute gingivitis, 3:40p Medicine - [place], plaque induced [address] M.D. Office Visit 10/31/2016 [facility] Internal Jeremiah Zendejas, J00 Acute nasopharyngitis 2:20p Medicine - TRAVELING PASSENGER AGENT [common cold] [address] Office Visit 10/29/2016 [facility] Internal Jeremiah Zendejas F41.9 Anxiety disorder, 11:00a Medicine - TRAVELING PASSENGER AGENT unspecified [address] F33.9 Major depressive disorder, recurrent, unspecified F44.5 Conversion disorder with seizures or convulsions G43.909 Migraine, unsp, not intractable, without status migrainosus Z02.71 Encounter for disability determination Office 10/17/2016 [facility] Clinton Blanco G43.909 Migraine, unsp, Visit 10:00a Elle Yadav M.D. not intractable, without status migrainosus F44.5 Conversion disorder with seizures or convulsions Office Visit 10/07/2016 10:40a [facility] Francia Zendejas G43.909 Migraine , unsp, Medicine - TRAVELING PASSENGER AGENT not intractable, [address] without status migrainosus F33.9 Major depressive disorder, recurrent, unspecified D48.5 Neoplasm of uncertain behavior of skin R22.2 Localized swelling, mass and lump, trunk Office Visit 07/04/2016 [facility] Kady Baker, F44.5 Conversion 11:01a Clinic MD disorder with seizures or convulsions Office Visit 07/03/2016 [facility] Kady Baker F44.5 Conversion 11:01a Clinic MD disorder with seizures or convulsions G43.909 Migraine, unsp, not intractable, without status migrainosus Office Visit 07/02/2016 Neurospitalist Kady Baker F44.5 Conversion 11:00a Clinic MD disorder with seizures or convulsions G43.909 Migraine, unsp, not intractable, without status migrainosus Office Visit 07/01/2016 Neurospitalist Kady Baker F44.5 Conversion 10:59a Clinic MD disorder with seizures or convulsions G43.909 Migraine, unsp, not intractable, without status migrainosus Office Visit 06/30/2016 Neurospitalist Kady Baker F44.5 Conversion 10:59a Clinic MD disorder with seizures or convulsions G43.909 Migraine, unsp, not intractable, without status migrainosus Office Visit 06/29/2016 Neurospitalist Kady Baker F44.5 Conversion 10:58a Clinic MD disorder with seizures or convulsions G43.909 Migraine, unsp, not intractable, without status migrainosus Office Visit 06/28/2016 Neurospitalist Kady Baker F44.5 Conversion 10:55a Clinic MD disorder with seizures or convulsions G43.909 Migraine, unsp, not intractable, without status migrainosus Office Visit 05/10/2016 Scooter Blanco G43.009 Migraine w/o aura, 10:45a Neurologic Pablo Yadav not intractable, [facility] w/o status migrainosus G40.209 Local-rel symptc epi w cmplx prt seiz,not ntrct,w/o stat epi Office Visit 05/03/2016 1:40p [facility] Jeremiah Zendejas, M79.632 Pain in left Medicine - [place] [employer]EN[employer] AGENT forearm Rd S50.12xA Contusion of left forearm, initial encounter Office Visit 03/26/2016 3:00p Dona Zendejas, H81.319 Aural vertigo, Medicine - TRAVELING PASSENGER AGENT unspecified ear [address] J02.9 Acute pharyngitis, unspecified Office Visit 02/22/2016 [facility] Internal Jeremiah Zendejas, F33.9 Major depressive 1:00p Medicine - TRAVELING PASSENGER AGENT disorder, recurrent, [address] unspecified Office Visit 01/24/2016 [facility] Internal Jeremiah Zendejas, G40.909 Epilepsy, unsp , not 3:40p Medicine - TRAVELING PASSENGER AGENT intractable, without [address] status epilepticus Office Visit 01/01/2016 [facility] Internal Jeremiah Zendejas, A09 Infectious 3:00p Medicine - TRAVELING PASSENGER AGENT gastroenteritis and [address] colitis, unspecified R11.2 Nausea with vomiting, unspecified Office Visit 12/20/2015 2:40p [facility] Internal Jeremiah Zendejas, Z01.419 Encntr for solid center winder Medicine - [place] TRAVELING PASSENGER AGENT exam (general) Rd (routine) w/o abn findings [...] Otalgia, unspecified ear Office Visit 12/18/2015 1:00p [facility] Internal Jeremiah Zendejas, G40.909 Epilepsy , unsp, Medicine - TRAVELING PASSENGER AGENT not intractable, [address] without status epilepticus R05 Cough Office Visit 11/14/2015 3:00p 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 Office Visit 09/13/2015 4:00p [facility] Internal Jeremiah Zendejas, K59.1 Functional Medicine - [place] [employer] diarrhea Rd G40.909 Epilepsy, unsp, not intractable, without status epilepticus Office Visit 08/14/2015 11:30a [facility] Internal Jeremiah Swedish, N92.6 Irregular Medicine - TRAVELING PASSENGER AGENT menstruation, [address] unspecified R35.0 Frequency of micturition Office Visit 06/22/2015 2:30p [employer] Internal Jeremiah Swedish, 522.0 Pulpitis Medicine - TRAVELING PASSENGER AG[employer] [address] Office Visit 06/13/2015 3:00p [facility] Internal Jeremiah Swedish, 345.90 Epilepsy Unspec Medicine - TRAVELING PASSENGER AGENT W/O Intractable [address] 300.02 Anxiety Disorder Generalized 780.39 Convulsions Other 300.00 Anxiety State Unspec Office Visit 05/16/2015 10:30a Senior Agricultural Assistant Internal Jeremiah Swedish, 462 Pharyngitis Acute Medicine - TRAVELING PASSENGER AGENT [address] Office Visit 05/09/2015 11:00a Senior Agricultural Assistant Internal Jeremiah Swedish, 380.13 Ear Infection Medicine - TRAVELING PASSENGER AGENT External Acute [address] Other 462 Pharyngitis Acute 461.1 Sinusitis Acute Frontal 786.2 Cough 784.0 Headache 380.10 Otitis Externa Infective Unspec Office Visit 03/17/2015 11:00a [facility] Internal Jeremiah Swedish, 780.4 Dizziness & Medicine - [place] TRAVELING PASSENGER AGENT [address] 300.11 Conversion Disorder Office Visit 03/06/2015 2:00p [facility] Internal Jeremiah Swedish, 381.4 Otitis Media Acute Medicine - TRAVELING PASSENGER AGENT Or Chronic [address] Nonsuppurative 461.1 Sinusitis Acute Frontal 784.0 Headache 780.4 Dizziness & Giddiness Office Visit 03/02/2015 [place]/Scooter Blanco 345.90 Epilepsy Unspec 1:45p Neurologic Serv Of Pablo Yadav W/O Intractable Senior Agricultural Assistant 300.11 Conversion Disorder Office Visit 02/14/2015 11:30a [facility] Internal Jeremiah Swedish, 780.4 Dizziness & Medicine - [place] TRAVELING PASSENGER AGENT [address] Office Visit 02/02/2015 3:00p [facility] Internal Jeremiah Swedish, 698.9 Pruritic Disorder Medicine - [place] TRAVELING PASSENGER AGENT [address] 702.8 Dermatoses Other Spec Office Visit 01/16/2015 2:30p Senior Agricultural Assistant Internal Jeremiah Swedish, 698.8 Pruritic Medicine - [place] TRAVELING PASSENGER AGENT Conditions Spec Rd Other 300.02 Anxiety Disorder Generalized 698.9 Pruritic Disorder Unspec Office Visit 01/13/2015 1:30p [facility] Internal Jeremiah Swedish, 698.8 Pruritic Medicine - [place] TRAVELING PASSENGER AGENT Conditions [address] Rd Other 493.10 Asthma Intrinsic Unspecified 698.9 Pruritic Disorder Unspec Office Visit 12/15/2014 [place]/Scooter [place] 345.90 Epilepsy Unspec 2:30p Neurologic Serv Twin Yadav M.D. W/O Intractable [facility] Office Visit 12/07/2014 [facility] Internal Medicine Jeremiah Zendejas, 345.90 Epilepsy Unspec 2:00p - Sonya TRAVELING PASSENGER AGENT W/O Intractable 293.83 Mood Disorder In Conditions Classified Elsewhere 372.00 Conjunctivitis Acute Unspec 268.9 Vitamin D Deficiency Unspec V77.1 Screening Diabetes Mellitus 296.90 Episodic Mood Disorder NOS Office Visit 10/11/2014 1:30p [facility] Internal Medicine - Jeremiah Zendejas, TRAVELING PASSENGER AGENT 133.0 Scabies [place] 698.8 Pruritic Conditions Spec Other 690.18 Seborrheic Dermatitis Other Office Visit 09/26/2014 11:30a [facility] Internal Jeremiah Zendejas, 461.9 Sinusitis Acute Medicine - TRAVELING PASSENGER AGENT Unspec [place] 786.2 Cough 311 Depressive Disorder Not Elsewhere Spec Office Visit 08/30/2014 1:30p [facility] Internal Jeremiah Zendejas, 311 Depressive Medicine - TRAVELING PASSENGER AGENT Disorder Not [place] Elsewhere Spec 786.2 Cough Office Visit 08/22/2014 11:30a [facility] Internal Jeremiah Zendejas, 466.0 Bronchitis Acute Medicine - TRAVELING PASSENGER AGENT [place] 311 Depressive Disorder Not Elsewhere Spec 280.9 Iron Deficiency Anemia Unspec Office Visit 08/18/2014 [place]/Scooter Blanco 345.90 Epilepsy Unspec 9:30a Neurologic Serv Twin Yadav M.D. W/O Intractable [facility] Office Visit 08/09/2014 [facility] Internal Medicine Dinorah 780.79 Malaise And 10:00a - Sonya Lorenzo M.D. Fatigue Other 300.02 Anxiety Disorder Generalized 345.90 Epilepsy Unspec W/O Intractable 278.00 Obesity Unspec V17.49 Family HX Of Other Cardiovascular Diseases 268.9 Vitamin D Deficiency Unspec 493.10 Asthma Intrinsic Unspecified Office Visit 06/16/2013 3:30p [place] 345.90 Epilepsy Unspec Services Of Dona Yadav M.D. W/O Intractable 300.02 Anxiety Disorder Generalized Office Visit 02/25/2013 11:50a [facility] Internal Yudi 345.91 Epilepsy Unspec W/ Medicine Alan Carlin M.D. Intractable [place] 493.90 Asthma Unspec W/O Status Asthmaticus 300.00 Anxiety State Unspec Office Visit 02/17/2013 11:15a [place] Aleks Blanco 345.90 Epilepsy Unspec Services Of [facility] Pablo Yadav W/O Intractable Office Visit 02/11/2013 1:00p [facility] Internal Dinorah Lorenzo, 345.91 Epilepsy Unspec Medicine Alan Shah W/ Intractable [place] Office Visit 11/18/2012 9:30a [facility] Fidel Muhammad 786.50 Pain Chest Unspec Of [facility] Pablo Goodwin, [facility], FASNC 785.1 Palpitations Office Visit 11/17/2012 [place] Clinton Blanco 345.40 Local-Related 9:30a Neurologic Pablo Yadav Epilepsy W/O Services Of [facility] Mention Of Intractable Epilepsy 346.10 Migraine Common W/O Intractable W/O Status Migrainosus Office Visit 10/27/2012 11:00a [facility] Internal Tanvir 780.4 Dizziness & Elizabeth Vizcarra M.D. [place]idd[place] Office Visit 09/28/2012 11:20a [facility] Internal [place] 493.90 Asthma Unspec W/ O Elizabeth Vizcarra M.D. Status [place] Asthmaticus 466.0 Bronchitis Acute Office Visit 09/07/2012 [facility] Internal [place] 346.92 Migraine 2:40p Elizabeth Vizcarra M.D. Unspecified, W/Out [place] Mention Intractable Migraine Office Visit 09/01/2012 [place] 345.91 Epilepsy Unspec W/ 11:00a Neurologic Pablo Yadav Intractable Services Of [facility] Office Visit 08/31/2012 [facility] Internal [place] 427.89 Cardiac 11:40a Elizabeth Vizcarra M.D. Dysrhythmia Other [place] 346.92 Migraine Unspecified, W/Out Mention Intractable Migraine Office Visit 08/20/2012 12:10p [facility] Internal Yudi Carlin, 300.00 Anxiety State Medicine Alan Shah Unspec [place] 493.90 Asthma Unspec W/O Status Asthmaticus 401.9 Hypertension Unspec V06.1 Lalxrapute-Terlzbr-Fjrzftgo Combined (DTaP) Office 07/20/2012 [facility] Internal Yudi V04.81 Need For Prophylactic Visit 11:50a Elizabeth Carlin M.D. Vaccination & [place] Inoculation/Influenza 345.90 Epilepsy Unspec W/O Intractable 300.00 Anxiety State Unspec 493.90 Asthma Unspec W/O Status Asthmaticus 401.9 Hypertension Unspec Plan of Treatment Future Appointment(s):11/24/2018 3:00 pm - Donna Peguero MD at [facility] Internal Medicine - [address]12/09/2018 2:40 pm - MOSHE Doherty at [facility] Internal Medicine - [address]12/08/2018 11:00 am - Clinton Yadav M.D. at [facility]11/17/2018 - Donna Peguero MDJ02.9 Acute pharyngitis, unspecifiedComments:Patient advised to gargle with salt water. We will send the throat swab for culture to the lab. If it is positive, we will give you a call to prescribed medications. If not, and your symptoms persist for more than 1 week, please dabofsS13.93 Unspecified otitis externa, bilateralNew Medication: Neomycin/Polymyxin/Hydrocortisone (Otic) [id number] - 2 drops in affected ear twice a day for 5 days as needed
--- NOTE | 2018-12-05 19:42 | UC ---
Abdominal Pain Female HPI - HPI Summary HPI Summary: 38 y/o female presents to the urgent care c/o acute upper abdominal pain since yesterday. Pt reports abdominal pain is localized at the site of the lipoma. Pt states Lipoma was removed in 05/16/[address] Pringle. However she has noticed it started to grow back about 1 year ago, but it has never been painful. Now it is larger. Pain is 8/10 today w/ nausea. She took Ibuprofen 800mg PO this morning w/o any improvement of pain. She has nausea now. Pain is throbbing w/o any radiation. She ate breakfast this morning. LMP: 11/23/2018. She is urinaring well w. normal BM. Pt denies fever, SOB, chest pain, dizziness, vomiting or diarrhea. - History of Current Complaint Chief Complaint: UCAbdominalPain Stated Complaint: NAUSEA,STOMACH COMPLAINT Time Seen by Provider: 12/05/18 18:58 Hx Obtained From: Patient Hx Last Menstrual Period: 11/30/2018 ?: No Onset/Duration: Sudden Onset, Lasting Days - 1 day, Still Present, Worse Since - today w/ nausea Timing: Constant Severity Currently: Moderate Pain Intensity: 8 Pain Scale Used: 0-10 Numeric Location: Discrete At: RUQ, Discrete At: LUQ Radiates: No Character: Sharp, Other - throbbing Aggravating Factor(s): Food, Movement Alleviating Factor(s): OTC Analgesics - ibuprofen PO this morning at 0800AM, NPO Associated Signs and Symptoms: Positive: Nausea. Negative: Fever, Cough, Back Pain, Constipation, Blood in Stool, Urinary Symptoms, Decreased Appetite, Vaginal Discharge, Vomiting, Diarrhea - Risk Factors Ectopic Risk Factor: Negative Ovarian Torsion Risk Factor: Negative Allergies/Adverse Reactions: Allergies Allergy/AdvReac Type Severity Reaction Status Date / Time amoxicillin [From Augmentin] Allergy Hives Verified 12/05/18 20:34 blueberry Allergy Hives/Diff. Verified 12/05/18 20:34 Breathing/I tching clavulanic acid Allergy Hives Verified 12/05/18 20:34 [From Augmentin] clindamycin Allergy Hives Verified 12/05/18 20:34 coconut Allergy Hives/Diff. Verified 12/05/18 20:34 Breathing/I tching codeine Allergy Altered Verified 12/05/18 20:34 Mental Status formoterol [From Dulera] Allergy Hives Verified 12/05/18 20:34 iohexol [From Omnipaque] Allergy Hives Verified 12/05/18 20:34 latex Allergy Hives Verified 12/05/18 20:34 lemon oil Allergy Vomiting Verified 12/05/18 20:34 metronidazole Allergy Hives Verified 12/05/18 20:34 paroxetine [From Paxil] Allergy Swelling Verified 12/05/18 20:34 Penicillins Allergy Shortness Verified 12/05/18 20:34 of Breath sertraline [From Zoloft] Allergy Hives Verified 12/05/18 20:34 watermelon Allergy Hives/Diff. Verified 12/05/18 20:34 Breathing/I tching zonisamide Allergy Hives Verified 12/05/18 20:34 pickle Allergy Hives/Diff. Uncoded 12/05/18 20:34 Breathing/I tching PSEUDOEPHEDRINE Allergy Unknown Uncoded 12/05/18 20:34 Reaction Details PMH/Surg Hx/FS Hx/Imm Hx Previously Healthy: Yes Endocrine History: Diabetes - on diet controlled Respiratory History: COPD, Asthma Neurological History: Seizures Other Neurological History: vertigo Psychological History: Anxiety, Depression Other History Of: Negative For: HIV, Hepatitis B, Hepatitis C - Surgical History Surgical History: Yes Surgery Procedure, Year, and Place: Scalp Cystectomy May 2014, Abdominal Lipoma May 2014 - Family History Known Family History: Positive: Cardiac Disease, Diabetes Negative: Renal Disease, Seizure Disorder - Social History Occupation: Employed Full-time Lives: With Family Alcohol Use: None Substance Use Type: None Smoking Status (MU): Former Smoker Type: Cigarettes Have You Smoked in the Last Year: No - Immunization History Most Recent Influenza Vaccination: Fall 2014 Most Recent Tetanus Shot: 2014 Most Recent Pneumonia Vaccination: unknown Review of Systems All Other Systems Reviewed And Are Negative: Yes Constitutional: Positive: Negative Skin: Positive: Negative Eyes: Positive: Negative ENT: Positive: Negative Respiratory: Positive: Negative Cardiovascular: Positive: Negative Gastrointestinal: Positive: Abdominal Pain - upper quadrant, Nausea Genitourinary: Positive: Negative Motor: Positive: Negative Neurovascular: Positive: Negative Musculoskeletal: Positive: Negative Neurological: Positive: Negative Psychological: Positive: Negative Is Patient Immunocompromised?: No Physical Exam - Summary Physical Exam Summary: Vital Signs Reviewed: Yes General:Patient is a well developed and nourished obese female who is sitting comfortable in the examining table. Patient is in mild acute pain distress. Eyes: Positive: Conjunctiva Clear - PERRLA, EOMI, fundi grossly normal ENT: Positive: Normal ENT inspection, Hearing grossly normal, Pharynx normal, TMs normal Neck: Positive: Supple, Nontender, No Lymphadenopathy Respiratory: Positive: Chest non-tender, Lungs clear, Normal breath sounds, No respiratory distress Cardiovascular: Positive: RRR,S1 and S2 present, No Murmur, Pulses Normal, Brisk Capillary Refill Abdomen Description: Positive: - Abd: positive large lipoma in the upper abdomen , w/ severe tenderness and guarding on palpation and mild distension about 23cm x20cm in size, no warm to touch or erythema observed, positive scars on top of the lipoma from previosu excision. hyperactive bowel sounds present in all four quadrants. Lower abdomen in non tender. no pulsation in epigastric area. No organomegaly. Negative [place] signs. mild periumbilical tenderness. No rebound in the lower quadrants. NT over McBurneys point. Good femoral pulses bilaterally. No hernia noted. No CVAT bilaterally Musculoskeletal: Positive: Strength Intact, ROM Intact, No Edema,FROM in all major joints, no edema, no cyanosis or clubbing. Neuro: Alert and oriented x 3. No acute neurological deficits. Speech is normal. Psychological: WNL Skin: Dry and warm Triage Information Reviewed: Yes Vital Signs: Initial Vital Signs Temp 97.2 F 12/05/18 18:44 Pulse 78 12/05/18 18:44 Resp 16 12/05/18 18:44 BP 138/84 12/05/18 18:44 Pulse Ox 99 12/05/18 18:44 Abd Pain Female Course/Dx - Course Course Of Treatment: 38 y/o female presents to the urgent care c/o acute upper abdominal pain since yesterday. Pt reports abdominal pain is localized at the site of the lipoma. Pt states Lipoma was removed in 05/16/[address] Pringle. However she has noticed it started to grow back about 1 year ago, but it has never been painful. Now it is larger. Pain is 8/10 today w/ nausea. She took Ibuprofen 800mg PO this morning w/o any improvement of pain. She has nausea now. Pain is throbbing w/o any radiation. She ate breakfast this morning. LMP: . She is urinaring well w. normal BM. Pt denies fever, SOB, chest pain, dizziness, vomiting or diarrhea. Hx obtained. Pt is pre-DM type II on diet control. Pt w/ Large tender lipoma on the Upper quadrant RT>LF about 23cm x20cm in size and w/ mild guarding on examination. Pt is hemodynamically stable now. Pt's Symptoms discussed w/ Dr Lozano who evaluated Pt and recommneded Pt should go to the [facility] for further evaluation and treatment to r/o any abdominal patology: abdominal abscess, cholycystitis, hernia etc. I called [facility] and spoke to JOSE F Zambrano who accepted the patient. Pt transfer to [facility] by ambulance. Pt left clinic hemodynamically stable, A&OX3 - Differential Dx/Diagnosis Differential Diagnosis: Appendicitis, Gall Bladder Disease, Peptic Ulcer Disease , Other - abdominal abscess, lipoma Provider Diagnosis: Acute abdominal pain, Nausea, Lipoma of abdominal wall Discharge - Sign-Out/Discharge Documenting (check all that apply): Patient Departure - Pt transfer by ambulance to the [facility] for furterh evalaution and treatment on her acute abdominal pain and lipoma All imaging exams completed and their final reports reviewed: No Studies - Discharge Plan Condition: Stable Disposition: TRANS HIGHER LVL OF CARE FAC Patient Education Materials: Acute Abdominal Pain (ED) Referrals: Jose Bell, INTERMEDIATE TEACHER [Primary Care Provider] - Additional Instructions: I think you need a higher level or care for your presenting symptoms. I highly recommend you to go to the ER for further evaluation and treatment. The risks of not going can be , sepsis, peritonitis, etc. I spoke to the ER attending Dr. Barr. They are expecting you. - Billing Disposition and Condition Condition: STABLE Disposition: Trans Higher Lvl of Care Fac
[2018-12-05 19:45] VITALS: BP 144/82
== END 2018-12-05 19:55 | disposition short-term general hospital (02) ==
LOC: UCEAST 18:12
DX: R10.12 Left upper quadrant pain (principal); R10.11 Right upper quadrant pain; R11.0 Nausea; D17.1 Benign lipomatous neoplasm of skin and subcutaneous tissue of trunk; Z88.1 Allergy status to other antibiotic agents; Z91.041 Radiographic dye allergy status; Z91.040 Latex allergy status; Z88.5 Allergy status to narcotic agent; Z88.0 Allergy status to penicillin; Z88.8 Allergy status to other drugs, medicaments and biological substances; Z91.018 Allergy to other foods; Z87.891 Personal history of nicotine dependence
CPT/HCPCS: 99213; G0463

== ENCOUNTER 2018-12-05 20:13 | Emergency (ER) | payer OTHER ==
[2018-12-05 21:05] LABS: ABS Basophils 0.1 10^3/ul (0-0.2); ABS Eosinophils 0.2 10^3/ul (0-0.6); ABS Lymphocytes 2.5 10^3/ul (1.0-4.8); ABS Monocytes 0.4 10^3/ul (0-0.8); ABS Neutrophils 5.2 10^3/ul (1.5-7.7); ABS Nucleated RBC 0 10^3/ul; Hematocrit 41 % (35-47); Hemoglobin 14.1 g/dl (12.0-16.0); Lymphocyte % 29.7 %; Mean Corpuscular HGB Conc 34 g/dl (31-36); Mean Corpuscular Hemoglobin 33 pg (27-31); Mean Corpuscular Volume 97 fL (80-97); Mean Platelet Volume 7.4 fL (7.4-10.4); Nucleated Red Blood Cells % 0; Platelet Count 331 10^3/ul (150-450); Red Blood Count 4.29 10^6/ul (4.00-5.40); Red Cell Distribution Width 14 % (10.5-15); White Blood Count 8.4 10^3/ul (3.5-10.8)
[2018-12-05 21:22] LABS: ALT 16 U/L (7-52); AST 15 U/L (13-39); Albumin 4.7 g/dL (3.2-5.2); Albumin/Globulin Ratio 1.5 (1-3); Alkaline Phosphatase 74 U/L (34-104); Anion Gap 7 mmol/L (2-11); BUN/Creatinine Ratio 15.1 (8-20); Blood Urea Nitrogen 11 mg/dL (6-24); CO2 Carbon Dioxide 28 mmol/L (22-32); Calcium 9.9 mg/dL (8.6-10.3); Chloride 105 mmol/L (101-111); EGFR African American 108.5 (>60); EGFR Non-African American 89.7 (>60); Globulin 3.2 g/dL (2-4); Glucose 111 mg/dL (70-100); Potassium 4.4 mmol/L (3.5-5.0); Sodium 140 mmol/L (135-145); Total Protein 7.9 g/dL (6.4-8.9)
[2018-12-05 21:29] LABS: HCG Pregnancy < 0.60 mIU/mL
[2018-12-06] MEDS ORDERED: NS 0.9% 1000 ML** 2,000 ML IV ONE (00:08)
[2018-12-06] MEDS ORDERED: Morphine VIAL* 4 MG/ML VIAL (1 ml vial) IV ONE (00:08)
[2018-12-06] MEDS ORDERED: Morphine VIAL* 10 MG/ML 1 ML VIAL ONE (00:54)
[2018-12-06 03:02] VITALS: BP 136/78
--- NOTE | 2018-12-06 04:40 | ED ---
Abdominal Pain/Female - HPI Summary HPI Summary: Pt is 38 y/o F brought in by ambulance to ED c/o abdominal pain. Rates her pain as 9/10 in severity and describes it aching. PMHx of lipomas; she had one surgically removed by Dr. Pringle in 2013 and has had another one for about a year. It hadnt caused her any pain, until yesterday morning. Pt notes nausea and loss of appetite. Denies vomiting. - History of Current Complaint Chief Complaint: EDAbdPain Stated Complaint: NAUSEA Time Seen by Provider: 12/05/18 20:21 Hx Obtained From: Patient Hx Last Menstrual Period: 11/30/2018 Onset/Duration: Sudden Onset, Lasting Days, Still Present Timing: Constant Severity Currently: Severe Pain Intensity: 9 Pain Scale Used: 0-10 Numeric Character: Other: - Aching Allergies/Adverse Reactions: Allergies Allergy/AdvReac Type Severity Reaction Status Date / Time amoxicillin [From Augmentin] Allergy Hives Verified 12/05/18 20:34 blueberry Allergy Hives/Diff. Verified 12/05/18 20:34 Breathing/I tching clavulanic acid Allergy Hives Verified 12/05/18 20:34 [From Augmentin] clindamycin Allergy Hives Verified 12/05/18 20:34 coconut Allergy Hives/Diff. Verified 12/05/18 20:34 Breathing/I tching codeine Allergy Altered Verified 12/05/18 20:34 Mental Status formoterol [From Dulera] Allergy Hives Verified 12/05/18 20:34 iohexol [From Omnipaque] Allergy Hives Verified 12/05/18 20:34 latex Allergy Hives Verified 12/05/18 20:34 lemon oil Allergy Vomiting Verified 12/05/18 20:34 metronidazole Allergy Hives Verified 12/05/18 20:34 paroxetine [From Paxil] Allergy Swelling Verified 12/05/18 20:34 Penicillins Allergy Shortness Verified 12/05/18 20:34 of Breath sertraline [From Zoloft] Allergy Hives Verified 12/05/18 20:34 watermelon Allergy Hives/Diff. Verified 12/05/18 20:34 Breathing/I tching zonisamide Allergy Hives Verified 12/05/18 20:34 pickle Allergy Hives/Diff. Uncoded 12/05/18 20:34 Breathing/I tching PSEUDOEPHEDRINE Allergy Unknown Uncoded 12/05/18 20:34 Reaction Details PMH/Surg Hx/FS Hx/Imm Hx Endocrine/Hematology History: Reports: Hx Diabetes - "pre diabetes", Hx Thyroid Disease, Hx Anemia Denies: Hx Unexplained Bleeding Cardiovascular History: Denies: Hx Aneurysm, Hx Angina, Hx Angioplasty, Hx Auto Implanted Cardiovert Defib, Hx Cardiac Arrest, Hx Cardiomegaly, Hx Congenital Heart Disease, Hx Congestive Heart Failure, Hx Coronary Artery Disease, Hx Deep Vein Thrombosis, Hx Embolism, Hx Hypercholesterolemia, Hx Hypotension, Hx Hypertension, Hx Myocardial Infarction, Hx Pacemaker/ICD, Hx Peripheral Vascular Disease, Hx Rheumatic Fever, Hx Syncope, Hx Valvular Heart Disease, Other Cardiovascular Problems/Disorders Respiratory History: Reports: Hx Asthma, Hx Chronic Bronchitis, Hx Chronic Obstructive Pulmonary Disease (COPD) Denies: Hx Cystic Fibrosis, Hx Lung Cancer, Hx Pleural Effusion, Hx Pneumonia , Hx Pulmonary Edema, Hx Pulmonary Embolism, Hx Seasonal Allergies, Hx Sleep Apnea, Other Respiratory Problems/Disorders GI History: Reports: Hx Gastroesophageal Reflux Disease - ON DAILY PROLOSEC Denies: Hx Gall Bladder Disease, Hx Gastrointestinal Bleed, Hx Ulcer, Hx Urosepsis History: Denies: Hx Kidney Stones, Hx Renal Disease Sensory History: Reports: Hx Contacts or Glasses Denies: Hx Cataracts, Hx Eye Injury, Hx Eye Prosthesis, Hx Glaucoma, Hx Legally Blind, Hx Macular Degeneration, Hx Vision Problem, Hx Deafness, Hx Hearing Aid, Hx Hearing Problem, Other Sensory Impairments Opthamlomology History: Reports: Hx Contacts or Glasses Denies: Hx Cataracts, Hx Eye Injury, Hx Eye Prosthesis, Hx Glaucoma, Hx Legally Blind, Hx Macular Degeneration, Hx Vision Problem, Other Sensory Impairments Neurological History: Reports: Hx Developmental Delay - 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., Hx Migraine - OCCASSIONAL, USES [facility], Hx Seizures - SINCE 2004; LAST WAS 04/2014, Other Neuro Impairments/Disorders - epilepsy Denies: Hx Dementia, Hx Transient Ischemic Attacks (TIA) Psychiatric History: Reports: Hx Anxiety - ON MEDS PRN, Hx Depression, Hx Community Mental Health Tx - not currently; previously used [employer] and [employer], Hx Bipolar Disorder Denies: Hx Post Traumatic Stress Disorder, Hx Schizophrenia, Hx Suicide Attempt, Hx Substance Abuse - Cancer History Cancer Type, Location and Year: seizure disorder - Surgical History Surgery Procedure, Year, and Place: Scalp Cystectomy May 2014, Abdominal Lipoma May 2014 Hx Anesthesia Reactions: No Infectious Disease History: No Infectious Disease History: Denies: Hx Clostridium Difficile, Hx Hepatitis, Hx Human Immunodeficiency Virus (HIV), Hx of Known/Suspected MRSA, Hx Shingles, Hx Tuberculosis, Hx Known/ Suspected VRE, Hx Known/Suspected VRSA, History Other Infectious Disease, Traveled Outside the [place] in Last 30 Days - Family History Known Family History: Positive: Cardiac Disease, Diabetes Negative: Renal Disease, Seizure Disorder - Social History Alcohol Use: None Hx Substance Use: No Substance Use Type: Reports: None Hx Tobacco Use: Yes Smoking Status (MU): Former Smoker Type: Cigarettes Have You Smoked in the Last Year: No Review of Systems Negative: Fever Positive: Abdominal Pain, Nausea. Negative: Vomiting All Other Systems Reviewed And Are Negative: Yes Physical Exam - Summary Physical Exam Summary: Appearance: Well-appearing, Well-nourished, lying in bed comfortably Skin: Warm, dry, no obvious rash Eyes: sclera anicteric, no conjunctival pallor ENT: mucous membranes moist, pharynx appears normal Neck: Supple, nontender Respiratory: Clear to auscultation, no signs of respiratory distress Cardiovascular: Normal S1, S2. No murmurs. Normal distal pulses in tibial and radial bilaterally. Abdomen: Large plum sized soft mildly tender mass on left lower abdomen. Soft, nontender, normal active bowel sounds present Musculoskeletal: Normal, Strength/ROM Intact Neurological: A&Ox3, awake and alert, mentation is normal, speech is fluent and appropriate Psychiatric: affect is normal, does not appear anxious or depressed Triage Information Reviewed: Yes Vital Signs On Initial Exam: Initial Vitals Temp Pulse Resp BP Pulse Ox 98.4 F 81 16 148/81 99 12/05/18 20:28 12/05/18 20:28 12/05/18 20:28 12/05/18 20:28 12/05/18 20:28 Vital Signs Reviewed: Yes Diagnostics - Vital Signs Vital Signs Temp Pulse Resp BP Pulse Ox 12/06/18 03:59 98.6 F 85 16 136/78 96 12/06/18 03:00 85 95 12/06/18 02:40 85 136/78 96 12/06/18 02:31 83 132/74 97 12/06/18 02:10 83 132/74 96 12/06/18 02:00 81 96 12/06/18 01:40 75 138/73 95 12/06/18 01:10 74 137/75 95 12/06/18 01:05 77 147/87 97 12/06/18 01:03 71 18 97 12/06/18 00:11 77 139/81 96 12/06/18 00:00 77 96 12/05/18 23:48 76 96 12/05/18 23:41 78 142/81 97 12/05/18 23:11 72 148/83 97 12/05/18 23:00 77 96 12/05/18 22:41 75 159/89 97 12/05/18 22:39 74 97 12/05/18 20:28 98.4 F 81 16 148/81 99 - Laboratory Lab Results: Lab Results 12/05/18 12/05/18 Range/Units 20:48 20:48 WBC 8.4 (3.5-10.8) 10^3/ul RBC 4.29 (4.00-5.40) 10^6/ul Hgb 14.1 (12.0-16.0) g/dl Hct 41 (35-47) % MCV 97 (80-97) fL MCH 33 H (27-31) pg MCHC 34 (31-36) g/dl RDW 14 (10.5-15) % Plt Count 331 (150-450) 10^3/ul MPV 7.4 (7.4-10.4) fL Neut % (Auto) 62.0 % Lymph % (Auto) 29.7 % [place] % (Auto) 5.2 % Eos % (Auto) 2.0 % Baso % (Auto) 1.1 % Absolute Neuts (auto) 5.2 (1.5-7.7) 10^3/ul Absolute Lymphs (auto) 2.5 (1.0-4.8) 10^3/ul Absolute Monos (auto) 0.4 (0-0.8) 10^3/ul Absolute Eos (auto) 0.2 (0-0.6) 10^3/ul Absolute Basos (auto) 0.1 (0-0.2) 10^3/ul Absolute Nucleated RBC 0 10^3/ul Nucleated RBC % 0 Sodium 140 (135-145) mmol/L Potassium 4.4 (3.5-5.0) mmol/L Chloride 105 (101-111) mmol/L Carbon Dioxide 28 (22-32) mmol/L Anion Gap 7 (2-11) mmol/L BUN 11 (6-24) mg/dL Creatinine 0.73 (0.51-0.95) mg/dL Est GFR ( Amer) 108.5 (>60) Est GFR (Non-Af Amer) 89.7 (>60) BUN/Creatinine Ratio 15.1 (8-20) Glucose 111 H (70-100) mg/dL Calcium 9.9 (8.6-10.3) mg/dL Total Bilirubin 0.50 (0.2-1.0) mg/dL AST 15 (13-39) U/L ALT 16 (7-52) U/L Alkaline Phosphatase 74 (34-104) U/L Total Protein 7.9 (6.4-8.9) g/dL Albumin 4.7 (3.2-5.2) g/dL Globulin 3.2 (2-4) g/dL Albumin/Globulin Ratio 1.5 (1-3) Lipase < 10 L (11.0-82.0) U/L Beta HCG, Quant < 0.60 mIU/mL Result Diagrams: 12/05/18 20:48 12/05/18 20:48 Lab Statement: Any lab studies that have been ordered have been reviewed, and results considered in the medical decision making process. - CT Abdomen/Pelvis CT CT Interpretation Completed By: Radiologist Summary of CT Findings: 1. Bilateral nonobstructing renal calculi. 2. Irregular shaped spiculated soft tissue abnormality in the subcutaneous fat of the upper anterior abdomen, suggesting scarring or other mass lesion. ED Physician reviewed these results. Abdominal Pain Fem Course/Dx - Course Course Of Treatment: Pt is 38 y/o F brought in by ambulance to ED c/o abdominal pain. PMHx of lipomas; she had one surgically removed by Dr. Pringle in 2013 and has had another one for about a year. Pt notes nausea and loss of appetite. Denies vomiting. Physical exam revealed large plum sized mass on left lower abdomen. Abdomen/Pelvis CT reveals bilateral nonobstructing renal calculi and irregular shaped tissue abnormality in the subcutaneous fat of the upper anterior abdomen, suggesting scarring or other mass lesion. Pt was diagnosed with abdominal mass and abdominal wall and discharged home. - Diagnoses Provider Diagnoses: Abdominal mass Discharge - Sign-Out/Discharge Documenting (check all that apply): Patient Departure - Discharge - Discharge Plan Condition: Good Disposition: HOME Patient Education Materials: Soft Tissue Mass (ED) Referrals: Wellington Pringle MD [Medical Doctor] - Additional Instructions: The CT scan showed that this is not a hernia, which is what I was concerned about. Nonetheless, this mass will likely need to be removed surgically, so contact the surgeon's office first thing Friday to make an appt. - Billing Disposition and Condition Condition: GOOD Disposition: Home - Attestation Statements Document Initiated by Sampson: Yes Documenting Scribe: Kasey Latham Provider For Whom Sampson is Documenting (Include Credential): Dr. Srinivas Knapp MD Scribe Attestation: I, Kasey Latham, scribed for Dr. Srinivas Knapp MD on 12/06/18 at 0528. Scribe Documentation Reviewed: Yes Provider Attestation: The documentation as recorded by the [email or web address] accurately reflects the service I personally performed and the decisions made by me, Dr. Srinivas Knapp MD Status of Scribe Document: Viewed
== END 2018-12-06 04:00 | disposition home or self-care (01) ==
LOC: ED 20:13
DX: R19.04 Left lower quadrant abdominal swelling, mass and lump (principal); R11.0 Nausea; N20.0 Calculus of kidney; K21.9 Gastro-esophageal reflux disease without esophagitis; F41.9 Anxiety disorder, unspecified; Z88.1 Allergy status to other antibiotic agents; Z91.041 Radiographic dye allergy status; Z91.040 Latex allergy status; Z88.5 Allergy status to narcotic agent; Z88.0 Allergy status to penicillin; Z88.8 Allergy status to other drugs, medicaments and biological substances; Z91.018 Allergy to other foods; Z87.891 Personal history of nicotine dependence
CPT/HCPCS: 36415; 74176; 80053; 83690; 84702; 85025; 96361; 96374; 99283; J2270

== ENCOUNTER 2018-12-29 14:40 | Emergency (ER) | payer OTHER ==
--- OUTSIDE RECORDS SUMMARY | 2018-12-29 14:46 | XMS REPORT | Continuity of Care Document ---
:1980 External Reference #:[id number] Author Name Darrell Pedrozatney Care Team Providers Name Role Phone Donna Peguero M.D. 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 Medications Medication Date Status Form Strength Qnty SIG Indications Ordering Provider Neomycin/Polymy 11/17 Active Solution 3.5-20930 10ml 2 drops in H60.93 Donna flora/Hydrocortis /2019 -1 affected ear Peguero, one (Otic) twice a day MD for 5 days as needed Fluticasone 10/21 Active Suspension 50mcg/Act 16uni use 2 sprays J01.90 Zsofia Propionate ts in each Ray, nostril one [employer]WOR[employer] SAFETY INSPECTOR time a day Robitussin 12 10/21 Active Suer 30mg/5ML 89ml 5 R05 Zsofia Hour Cough milliliters Ray, Relief by mouth [employer]WOR[employer] SAFETY INSPECTOR twice a day as needed Nasal [place] 10/21 Active Solution 0.05% 30ml 2 sprays J01.90 Zsofia Hour /2017 each nostril Ray, 2x daily as AIRWORTHINESS SAFETY INSPECTOR needed for congestion Benzonatate 08/19 Active Capsules 100mg 30cap take 1 tab R05 Zsofia s by mouth Ray, three times [employer]WOR[employer]INESS SAFETY INSPECTOR a day as needed for cough True Focus Self 08/17 Active Strips 100un use as Donna Monitoring its directed Sudhir, Blood Glucose last ov MD Test Strips 08/19/18 dx True Metrix Go 08/17 Active Kit w/Device 1unit use daily as Zsofia Blood Glucose s directed Ray, Meter last visit: AIRWOR[employer]INESS SAFETY INSPECTOR 08/19/18 Ventolin HFA 07/15 Active Aerosol 108(90Bas 8gm 2 puffs by J45.30 Zsofi e) mouth four Ray, mcg/Act times a day AIRWOR[employer] SAFETY INSPECTOR as needed Guards 05/08 Active Misc 1unit use mouth K13.79 Zsofi s guard at Ray, night AIRWOR[employer]INESS SAFETY INSPECTOR Vitamin C 05/08 Active Tablets 500mg 60tab Take One D50.9 Zsofia s Tablet By Ray, Mouth Twice AIRWORTHINESS SAFETY INSPECTOR A Day Citalopram 03/12 Active Tablets 40mg 30tab Take One Zsofia Hydrobromide /2017 s Tablet By Ray, Mouth Every AIRWORTHINESS SAFETY INSPECTOR Day Meclizine HCL 03/10 Active Tablets 25mg 90tab take 1/2-1 H81.399 Zsofia s tablet by Ray, mouth three AIRWORTH[employer] SAFETY INSPECTOR times a day as needed Calcium 02/18 Active Tablets 600-400mg 180ta take one J00 Zsofia Carbonate-Vitam /2018 -Unit bs tablet by Ray, in D mouth twice AIRWOR[employer]INESS SAFETY INSPECTOR a day with food Ibuprofen 06/24 Active Tablets 800mg 90tab take one Zsofia /2015 s tablet three Ray, times daily AIRWOR[employer] SAFETY INSPECTOR as needed. Omeprazole 09/[address] 20mg 30cap take one K21.9 Zsofia /2014 s capsule by Ray, mouth every AIRWORTHINESS SAFETY INSPECTOR day KP Cetirizine 03/31 Active Tablets 10mg 30tab 1 by mouth Zsofia HCL /2014 s every day Ray, [employer]WOR[employer] SAFETY INSPECTOR Ferrous 08/12 Active Tablets 324(38Fe) 180ta take one D50.9 Zsofia Gluconate /2013 mg bs tablet by Ray, mouth twice AIRWOR[employer] SAFETY INSPECTOR daily Albuterol 11/02 Active Nebulizer (2.5mg/3M 100un inhale the [facility] /2011 L) 0.083% its contents of Ebony Bonner, one vial via M.D.,FACP nebulizer every 4 to 6 hours as needed Lamotrigine 07/21 Active Tablets 100mg 210ta 3 by mouth [place] S. /2011 bs every Leif, morning and M.D. 4 every night at bedtime Levothyroxine 00/00 Active Tablets 75mcg 1 by mouth E03.9 Unknown Sodium /0000 every day Doxycycline 10/22 Hx Capsules 100mg 20cap take 1 tab Zsofia Monohydrate /2017 s po bid for Ray, - 10 days [employer]WOR[employer] SAFETY INSPECTOR 11/17 Cefuroxime 10/21 Hx Tablets 250mg 14tab 1 tab by H66.92 Zsofia Axetil /2017 s mouth twice Ray, - a day for 7 AIRWOR[employer]INESS SAFETY INSPECTOR J01.90 Doxycycline 08/19/2018 - Hx Tablets 100mg 14tabs 1 tab by J01.90 Zsofia Monohydrate 11/17/2018 mouth twice Ray, AIRWOR[employer] SAFETY INSPECTOR a day for 7 days Breo Ellipta 08/11/2018 - Hx Aerosol 100-25m 30units inhale 1 Comfort 11/17/2018 cg/Inh puff by Pablo Oliver mouth once daily Advair Diskus 07/21/2018 - Hx Aerosol 100-50m 60units inhale 1 [place] 08/11/2018 cg/Dose dose by Zackery mouth twice M.D. a day Flovent HFA 07/15/2018 - Hx Aerosol 44mcg/A 10.600g 2 act twice J45.30 Zsofia 07/21/2018 ct m a day daily Ray, AIRWOR[employer] SAFETY INSPECTOR for 2 week rinse after use Cephalexin 07/15/2018 - Hx Capsules 500mg 30caps take 1 tab L03.116 Zsofia 07/15/2018 three times Ray, AIRWOR[employer] SAFETY INSPECTOR a day for 10 days Sulfamethoxazole 07/15/2018 - Hx Tablets 800-160 14tabs 1 tab po L03.116 Zsofia /Trimethoprim DS 08/19/2018 mg bid x 7 Ray, AIRWOR[employer] SAFETY INSPECTOR days Prednisone 01/21/2018 - Hx Tablets 10mg 20tabs 4 tabs Baldev Beck 01/29/2018 every day Kailey, for 2 days, Pablo,FACJing then reduce by 1 tab every 2 days until finished Arnuity Ellipta 01/21/2018 - Hx Aerosol 100mcg/ 30units 1 puff Malu Beck 11/17/2018 Act inhaled [place], every day Pablo,FACP Calcium 10/20/2017 - Hx Tablets 600-400 180tabs take one [place] Carbonate-Vitami 01/01/2018 mg-Unit tablet by maricel Vizcarra mouth twice M.DBryant a day with food Doxepin HCL 09/12/2017 - Hx Capsules 10mg 120caps 4 capsules G43.909 [place] 12/08/2018 every night Pablo Jurado at bedtime Doxycycline 07/23/2017 - Hx Tablets 100mg 20tabs 1 by mouth Other Hyclate 08/02/2017 twice a day Ordering x 10 days Provider Acetaminophen-Co 07/23/2017 - Hx Tablets 300-30m 10tabs 1 tab by Unknown deine #3 09/11/2017 g mouth q 6 hrs day as needed pain Zonisamide 07/18/2017 - Hx Capsules 100mg 60caps 2 tabs po G43.909 [place] Blanco 01/01/2018 etienne Pablo Yadav Doxycycline 06/18/2017 - Hx Capsules 100mg 14caps 1 cab twice R30.0 Tanvir Hyclate 07/17/2017 a day Pablo Vizcarra Nitrofurantoin 06/10/2017 - Hx Capsules 100mg 14caps take one Other Macrocrystal 06/17/2017 capsule Ordering twice daily Provider for 7 days. Zonisamide 04/18/2017 - Hx Capsules 25mg 120caps 1 po qhs G43.909 Clinton SBryant 06/18/2017 for 1 wk Leif, then 2 qhs M.D. for 1 wk then 3 qhs for 1 wk then 4 qhs Azithromycin 04/08/2017 - Hx Tablets 250mg 6tabs 2 tab today J06.9 Tanvir 04/10/2017 and then Zackery 1tab daily M.D. Meclizine HCL 04/08/2017 - Hx Tablets 12.5mg 60tabs 1-2 tab two H81.393 Tanvir 07/15/2018 times a day aPblo Vizcarra Levothyroxine 04/08/2017 - Hx Tablets 25mcg 45tabs take one E03.9 Tanvir Sodium 01/21/2018 tablet by Zackery mouth every M.D. morning Lidocaine 04/02/2017 - Hx Solution 2% 200ml swish and K08.89 Marito E. Viscous 04/10/2017 spit 15cc Pablo Turpin up to three times a day as needed Ketorolac 03/31/2017 - Hx Tablets 10mg 3tabs take 1 by Bekah Tromethamine 04/10/2017 mouth every [place], 8 hours as M.D. needed for migraine. take with food. Ondansetron HCL 03/31/2017 - Hx Tablets 4mg 10tabs one by Baldev Beck 07/15/2018 mouth every [place], 8 hours as M.D.,FACP needed for nausea Clindamycin HCL 03/25/2017 - Hx Capsules 300mg 40caps 1 tabs by K05.00 Tanvir 04/10/2017 mouth every Pachikara, 6h M.D. Vicodin 03/25/2017 - Hx Tablets 5-300mg 20tabs 1 tab every K05.00 Tanvir 05/21/2017 12 hours Pablo Vizcarra Citalopram 03/17/2017 - Hx Tablets 10mg 30tabs Take One Tanvir Hydrobromide 03/12/2018 Tablet By Zackery Mouth Every M.D. Day Along With 20 MG Tablet To Equal Total Daily Dose Of 30 MG Calcium 600+D 10/31/2016 - Hx Tablets 600-400 180tabs 1 tab by JJames Ramey 02/18/2018 mg-Unit mouth twice [facility], a day take M.DBryant w/ meal Topiramate 10/17/2016 - Hx Tablets 100mg 75tabs 1 po qam G43.909 [place] S. 03/18/2017 and 1 11/11 luis manuel Yadav M.D. Robitussin 12 10/10/2016 - Hx Suer 30mg/5M 118ml 1-2 J00 [place] Hour Cough 11/17/2018 L teaspoon at [facility], Relief night as M.DBryant needed Naproxen 05/03/2016 - Hx Tablets 250mg 60tabs 1 tablet by M79.632 Jeremiah 05/13/2016 mouth twice [place], TICKET DISPENSER CHANGER a day as needed pain, with foods Prednisone 03/26/2016 - Hx Tablets 20mg 5tabs 1 tablets J02.9 Jeremiah 05/03/2016 by mouth [place], [employer]ICKET DISP[employer]ER CHANGER daily x's 5 days in the morning Meclizine HCL 03/26/2016 - Hx Tablets 25mg 45tabs 1 tablet H81.319 Jeremiah 04/09/2016 tid every [place], TICKET DISPENSER CHANGER 6-8 hours as needed Ventolin HFA 03/13/2016 - Hx Aerosol 108(90B 1units 2 puffs by Malu Beck 11/17/2018 [facility]) mouth four [place], mcg/Act times a day Pablo,FACP as needed Escitalopram 03/11/2016 - Hx Tablets 10mg 30tabs 1/2 tab po F33.9 Malu Beck Oxalate 03/14/2016 qd for 1 wk [place], then 1 by Pablo,FACP mouth every day Venlafaxine HCL 02/22/2016 - Hx Tablets 37.5mg 22tabs 75 mg for 1 F33.9 Jeremiah 03/13/2016 week, then Aashish TICKET DISPENSER CHANGER 37.5 mg for 1 week, then stop. Zofran Odt 01/01/2016 - Hx Tablets 4mg 12tabs 1 odt by R11.2 Jeremiah 01/02/2016 Dispers mouth every [place], TICKET DISPENSER CHANGER 6 hours as needed nausea no more than 3 daily Drisdol 12/25/2015 - Hx Capsules [id number] 8caps 1 tab by Jeremiah 02/22/2016 it mouth once [place], [employer]ICK[employer] DISPENSER CHANGER a week x's 8 weeks Nystop 12/20/2015 - Hx Powder [id number] 1units apply B37.2 Jeremiah 02/22/2016 nit/GM topically JANNIE Zendejas to rash twice a day until rash resolved Cefdinir 10/30/2015 - Hx Capsules 300mg 20caps 1 capsule J01.90 Jeremiah 11/09/2015 twice a day [place], TICKET DISPENSER CHANGER x's 10 days Ipratropium 10/30/2015 - Hx Solution 0.03% 1units instill 2 J01.90 Jeremiah Galva 11/13/2015 sprays in Aashish [employer] DISPENSER CHANGER each nostril three times a day as needed nasal congestion Penicillin V 10/12/2015 - Hx Tablets 500mg 20tabs 1 tablet by Jeremiah Potassium 10/22/2015 mouth bid JANNIE Zendejas x10 days Clindamycin HCL 10/11/2015 - Hx Capsules 300mg 30caps 1 capsule J02.9 Jeremiah 10/12/2015 by mouth [place], JANNIE three times a day x's 10 days Cepacol Sore 10/11/2015 - Hx Lozenges 5.4mg J02.9 Jeremiah Throat 10/16/2015 JANNIE Zendejas Freestyle 09/28/2015 - Hx Misc 100unit test bs Jose Gabriel 08/16/2018 s once daily Ray, AIRWORTH[employer] SAFETY INSPECTOR and as needed Freestyle System 09/28/2015 - Hx Kit 250.02 Jeremiah 08/16/2018 JANNIE Zendejas Freestyle Test 09/28/2015 - Hx Strips 100unit test strips Zsofia 08/16/2018 s use daily Ray, AIRWORTH[employer] SAFETY INSPECTOR as directed Topiramate 09/10/2015 - Hx Caps 25mg 90caps take 3 by G43.909 Clinton Pearce. 10/17/2016 Sprinkle mouth at [place], bedtime M.D. Naproxen 08/24/2015 - Hx Tablets 500mg 14tabs 1 tab by Jeremiah 11/13/2015 mouth every JANNIE Zendejas 12 hours. prn Benzonatate 08/22/2015 - Hx Capsules 100mg 30caps 1 tab by R05 Zsofia 07/15/2018 mouth three Ray, AIR[employer]TH[employer] SAFETY INSPECTOR times a day as needed J00 [place] 07/05/2015 - Hx Tablets 7.5-325mg 6tabs 1 tab every Jeremiah 07/08/2015 6 hours up [place], to twice a [employer] DISP[employer]ER CHANGER day x3 days [place] 06/22/2015 - Hx Tablets 7.5-325mg 30tabs 1 tab every 522. Jeremiah 07/05/2015 6 hours prn 0 [place], pain [employer]ICK[employer] DISPENSER CHANGER Nystatin 05/26/2015 - Hx Suspension [id number]/ 225ml swish and Jeremiah 06/05/2015 ML swallow 5ml [place], four times [employer] DISPENSER CHANGER a day x's 10 days Clindamycin HCL 05/16/2015 - Hx Capsules 300mg 30caps 1 capsule 462 Jeremiah 05/26/2015 by mouth [place], three times [employer]ER CHANGER a day x's 10 days Medrol (Tj) 05/16/2015 - Hx Tablets 4mg 1tabs take as 462 Jeremiah 05/26/2015 prescribed [place], [employer]ICK[employer] DISPENSER CHANGER Amoxicillin 05/09/2015 - Hx Tablets 875mg 20tabs take one 380. Jeremiah 05/19/2015 tablet by 13 [place], mouth twice [employer] DISPENSER CHANGER a day x's 10 days Cheratussin ac 05/09/2015 - Hx Syrup 100-10mg/5M 120ml 1-2 786. Jeremiah 05/19/2015 L teaspoon by 2 [place], mouth every TICK[employer] DISPENSER CHANGER 4 to 6 hours as needed cough Amoxicillin 03/06/2015 - Hx Tablets 875mg 14tabs take one 381. Jeremiah 03/17/2015 tablet by 4 [place], mouth twice [employer]PENSER CHANGER a day x's 7 days Darlyn Allergy 03/06/2015 - Hx Tablets 180mg 30tabs 1 tab by 461. Jeremiah 03/17/2015 mouth daily 1 [place], x's 4-6 T[employer] DISP[employer]ER CHANGER weeks Zyrtec Allergy 02/10/2015 - Hx Capsules 10mg 30caps 1 by mouth [place] 02/14/2015 every day Bunny mckenzie M.D. Hydroxyzine HCL 02/02/2015 - Hx Tablets 25mg 2 tab by 698. Jeremiah 02/02/2015 mouth every 8 [place], 6 hours as TICKET DISPENSER CHANGER needed for itching Ranitidine HCL 02/02/2015 - Hx Capsules 150mg 60caps 1 capsule 698. Jeremiah 03/06/2015 po bid 9 [place], [employer]ICK[employer] DISPENSER CHANGER Darlyn Allergy 02/02/2015 - Hx Tablets 180mg 60tabs 2 tab by 698. Tanvir 02/10/2015 mouth daily 9 Bunny mckenzie M.D. Prednisone 02/02/2015 - Hx Tablets 10mg 30tabs 5 698. Jeremiah 02/12/2015 pillsx's2da 9 [place], ys, [employer] DISPENSER CHANGER 4pillsx's2d ays, 3pillsx's2d ays, 2pillsx's2d ays,1pillx' s2days,then stop Hydroxyzine HCL 01/26/2015 - Hx Tablets 25mg 56tabs 2 tab by 698. Jeremiah 02/02/2015 mouth every 8 [place], 6 hours as TICKET DISPENSER CHANGER needed for itching Triamcinolone 01/23/2015 - Hx Cream 0.1% 30G apply Jeremiah Acetonide 01/26/2015 topically [place], twice a day [employer]ICK[employer]ER CHANGER to affected sites Lorazepam 01/16/2015 - Hx Tablets 0.5mg 15tabs 1 by mouth Claudia, 01/16/2015 tid as Jean Claude needed , DO Lorazepam 01/16/2015 - Hx Tablets 0.5mg 15tabs 1 by mouth [place], 01/16/2015 tid as Jeremiah needed [employer]PENSER CHANGER Alprazolam 01/16/2015 - Hx Tablets 0.5mg 60tabs 1/2-1 tab Jeremiah 03/17/2015 by mouth [place], twice a day T[employer]PENSER CHANGER as needed Hydrocortisone 01/16/2015 - Hx Cream 1% 1tube apply tid Jeremiah Plus 01/26/2015 daily until [place], rash [employer]ICKET DISPENSER CHANGER resolved Hydroxyzine HCL 01/13/2015 - Hx Tablets 25mg 56tabs 2 tab by 698. Jeremiah 01/16/2015 mouth every 8 [place], 6 hours as TICKET DISPENSER CHANGER needed for itching Ranitidine 150 01/13/2015 - Hx Tablets 150mg 30tabs 1 tablet po 698. Jeremiah Maximum Strength 02/02/2015 qd until 8 [place], hives TICKET DISPENSER CHANGER resolve Tudorza Pressair 01/13/2015 - Hx Aerosol 400mcg/Act 1units 1 493. Jeremiah 02/02/2015 inhalation 10 [place], po qd [employer]ET DISPENSER CHANGER Alprazolam 01/05/2015 - Hx Tablets 0.5mg 20tabs 1 PO daily Jeremiah 01/16/2015 Dispers [place], TICKET DISPENSER CHANGER Vitamin D 12/11/2014 - Hx Tablets 1000Unit 30tabs 1 by mouth J00 Jeremiah 10/31/2016 every day [place], TICK[employer] DISPENSER CHANGER Polytrim 12/07/2014 - Hx Solution 50165-7.1Un 1units 1 drop left 372. Jeremiah 12/12/2014 it/ML-% eye every 00 [place], four hours TICKET DISPENSER CHANGER while awake x's 5 days Hydroxyzine HCL 10/11/2014 - Hx Tablets 25mg 56tabs 2 tab by 698. Jeremiah 01/13/2015 mouth every 8 [place], 6 hours as TICKET DISPENSER CHANGER needed for itching Permethrin 10/11/2014 - Hx Cream 5% 1units apply from 133. Jeremiah 12/07/2014 neck to 0 [place], toes TICKET DISPENSER CHANGER topically leave on 8-14 hours then bath off. repeat in 7 days. Clarithromycin 09/29/2014 - Hx Tablets 500mg 14tabs 1 tab po Jeremiah 10/06/2014 bid x's 7 [place], days TICKET DISPENSER CHANGER Afrin 12 Hour 09/29/2014 - Hx Solution 0.05% 1units 2-3 sprays Jeremiah 12/07/2014 both nares [place], every 12 TICKET DISPENSER CHANGER hours as needed rhinorhea Amoxicillin/Clavu 09/26/2014 - Hx Tablets 875-125mg 20tabs 1 tablet by 461. Jeremiah lanate Potassium 09/29/2014 mouth twice 9 [place], a day x's TICKET DISPENSER CHANGER 10 days Cheratussin ac 09/26/2014 - Hx Syrup 100-10mg/5M 120ml 1-2 786. Jeremiah 10/01/2014 L teaspoon by 2 [place], mouth every TICKET DISPENSER CHANGER 4 to 6 hours as needed cough Citalopram 08/30/2014 - Hx Tablets 20mg 30tabs Take One F33. [place] Hydrobromide 03/12/2018 Tablet By 9 Pachikar Mouth Every a, M.D. Day Along With 10 MG Tablet To Equal Total Daily Dose Of 30 MG Citalopram 08/22/2014 - Hx Tablets 40mg 30tabs 1 tablet po 311 Jeremiah Hydrobromide 08/30/2014 daily [place], TICKET DISPENSER CHANGER Prednisone 08/18/2014 - Hx Tablets 20mg 10tabs 2 by mouth Unknown 09/26/2014 every day Cheratussin ac 08/18/2014 - Hx Syrup 100-10mg/5M 236ml 1-2 tsp by Jeremiah 09/26/2014 L mouth every [place], 4 to 6 TICKET DISPENSER CHANGER hours as needed cough Zithromax 08/18/2014 - [...] Tablets 25mg 90tabs 3 po qhs [place] Blanco 07/12/2013 Pablo Yadav Symbicort 02/25/2013 - Hx Aerosol 160-4.5mcg/ 1units 2 puff 493. Jeremiah 05/09/2015 Act inhaled 90 [place], twice a day TICKET DISPENSER CHANGER Keppra 02/11/2013 - Hx Tablets 500mg 30tabs 1 po at 345. Clinton Blanco 06/16/2013 bedtime 91 Pablo Yadav Spiriva 10/27/2012 - Hx Capsules 18mcg 30caps 1 780. [place] Handihaler 02/25/2013 inhalation 4 Pachikar irineo mckenzie M.D. Prednisone 09/28/2012 - Hx Tablets 10mg 30tabs 5tabx 493. Tanvir 10/27/2012 2days,4 90 Pachikar [id number] Pablo mckenzie [id number], [id number], 1tabxday. Topamax 09/07/2012 - Hx Tablets 25mg 30tabs 1 tab PO hs 346. [place] 09/28/2012 92 Bunny mckenzie M.D. Symbicort 07/20/2012 [...] 18mcg 90caps 1 Jeremiah Handihaler 01/13/2015 inhalation [place], by mouth TICKET DISPENSER CHANGER every morning Proair HFA - Hx Aerosol 108(90Base) 1units 2 puffs by Unknown 10/11/2014 mcg/Act mouth every 4 hours as needed Vitamin D3 - Hx Capsules [id number] 8caps 1 by mouth Unknown Maximum Strength 12/11/2014 every week Lorazepam - Hx Tablets 0.5mg 15tabs 1 by mouth Unknown 10/11/2014 tid as needed Cetirizine HCL - Hx Tablets 10mg 1 by mouth Unknown 08/17/2014 every day Omeprazole - Hx Capsules DR 40mg 30caps 1 by mouth Jeremiah 02/02/2015 every day [place], TICKET DISPENSER CHANGER Citalopram - Hx Tablets 20mg 30tabs 1 by mouth Unknown Hydrobromide 08/22/2014 every day Oxymetazoline HCL - Hx Solution 0.05% Unknown 10/11/2014 Hydroxyzine HCL - Hx Tablets 50mg 30tabs 1 po bid if Jeremiah 11/13/2015 needed Aashish TICKET DISP[employer]ER CHANGER Lorazepam - Hx Tablets 1mg 1 po q 8 Unknown 06/13/2015 to 12 hours as needed Citalopram - Hx Tablets 20mg Unknown Hydrobromide 03/02/2015 Acetaminophen - Hx Tablets 500mg 240tabs 2 tablets Jeremiah 10/29/2016 every 6-8 [place], hours as TICKET DISPENSER CHANGER needed for pain Dulera - Hx Aerosol 100-5mcg/Ac 2 puff Unknown 06/13/2015 t twice a day Zithromax - Hx Tablets 500mg one by Unknown 08/14/2015 mouth one per day Flonase Allergy - Hx Suspension 50mcg/Act 9.900ml 2 [place] Relief 11/17/2018 intranasal Pachikar twice a day a, M.D. Keflex - Hx Capsules 500mg 1 by mouth Unknown 10/11/2015 three times a day Robitussin Chest - Hx Syrup 100mg/5ML 118ml 1-2 Ashvin-Fern Congestion 10/10/2016 teaspoon at l D. night as [place], needed M.D.,FAC P Ra Motion - Hx Tablets 25mg 30tabs take 1/2 Jeremiah Sickness Relief 04/08/2017 tab by [place], mouth three TICKET DISPENSER CHANGER times daily if needed for vertigo Nitrofurantoin [...] Code Status Date Vaccine Reaction Lot # [id number] Given 08/19/2018 Influenza Virus Vaccine, [id number] Quadrivalent, Split, Preservative Free 35439 Given 07/28/2018 Influenza Virus Vaccine, Quadrivalent, Split, Preservative Free 65352 Given 07/28/2018 Influenza Virus Vaccine, Quadrivalent, Split, Preservative Free 49763 Given 01/21/2018 Influenza Virus Vaccine, [id number] Quadrivalent, Split, Preservative Free 68610 Given 10/16/2017 Pneumonia Vaccine no reaction, pt [id number] tolerated well Q2035 Given 10/16/2015 Afluria Vaccine [id number] Given 08/20/2012 Tdap - [id number] Tetanus/Diptheria/Acellula r Pertussis Q2038 Given 07/20/2012 Fluzone Vaccine [id number] Q2035 Ordered 07/04/2016 Afluria Vaccine Vital Signs Date Vital Result Comment 12/08/2018 11:09am Height 67 inches 5'7" Weight 343.75 lb Heart Rate 88 /min BP Systolic Sitting 132 mmHg large cuff left arm BP Diastolic Sitting 80 mmHg large cuff left arm Respiratory Rate 16 /min BMI (Body Mass Index) 53.8 kg/m2 11/17/2018 2:52pm Height 67 inches 5'7" Weight [...] Date Facility Test Result H/L Range Note CBC Auto Diff 12/05/2018 [facility] White Blood 8.4 10^3/uL N 3.5-10.[address] [place] [address] [phone] Red Blood Count 4.29 10^6/uL N 4.00-5.40 Hemoglobin 14.1 g/dL N 12.0-16.0 Hematocrit 41 % N 35-47 Mean Corpuscular Volume 97 fL N 80-97 Mean Corpuscular Hemoglobin 33 pg High 27-31 Mean Corpuscular HGB Conc 34 g/dL N 31-36 Red Cell Distribution Width 14 % N 10.5-15 Platelet Count 331 10^3/uL N 150-450 Mean Platelet Volume 7.4 fL N 7.4-10.4 Abs Neutrophils 5.2 10^3/uL N 1.5-7.7 Abs Lymphocytes 2.5 10^3/uL N 1.0-4.8 Abs Monocytes 0.4 10^3/uL N 0-0.8 Abs Eosinophils 0.2 10^3/uL N 0-0.6 Abs Basophils 0.1 10^3/uL N 0-0.2 Abs Nucleated RBC 0 10^3/uL Granulocyte % 62.0 % Lymphocyte % 29.7 % Monocyte % 5.2 % Eosinophil % 2.0 % Basophil % 1.1 % Nucleated Red Blood Cells % 0 Comp Metabolic Panel 12/05/2018 [facility] Sodium 140 mmol/L N 135-[address] [place] [address] [phone] Potassium 4.4 mmol/L N 3.5-5.0 Chloride 105 mmol/L N 101-111 Co2 Carbon Dioxide 28 mmol/L N 22-32 Anion Gap 7 mmol/L N 2-11 Glucose 111 mg/dL High 70-100 Blood Urea Nitrogen 11 mg/dL N 6-24 Creatinine 0.73 mg/dL N 0.51-0.95 BUN/Creatinine Ratio 15.1 N 8-20 Calcium 9.9 mg/dL N 8.6-10.3 Total Protein 7.9 g/dL N 6.4-8.9 Albumin 4.7 g/dL N 3.2-5.2 Globulin 3.2 g/dL N 2-4 Albumin/Globulin Ratio 1.5 N 1-3 Total Bilirubin 0.50 mg/dL N 0.2-1.0 Alkaline Phosphatase 74 U/L N 34-104 Alt 16 U/L N 7-52 Ast 15 U/L N 13-39 Egfr Non- 89.7 >60 Egfr 108.5 >60 1 Laboratory test 12/05/2018 [facility] Lipase < 10 U/L Low 11.0 -82.[address] [place] [address] [phone] HCG < 0.60 mIU/mL 2 Laboratory test 11/17/2018 [facility] Rapid Strep Negative Negative [address] [place] [address] [phone] Laboratory test 11/17/2018 [facility] Rapid Strep A SEE RESULT [address] [place] [address] [phone] Laboratory test 10/23/2018 [facility] Rapid Strep Negative Negative [address] [place] [address] [phone] Laboratory test 06/25/2018 [facility] TSH (Thyroid 3.56 mcIU/mL N 0.34-5.[address] Stim [place]) [place] [address] [phone] CBC Auto Diff 06/25/2018 [facility] White Blood 6.9 10^3/uL N 3.5-10.[address] [place] [address] [phone] Red Blood Count 3.80 10^6/uL Low 4.00-5.40 [...] % 0.1 Iron & Iron Binding 06/25/2018 [facility] Iron 52 g/dL N 50- [address] [place] [address] [phone] Unsaturated Iron Binding 280 g/dL Total Iron Binding Capacity 332 g/dL N 250-450 Transferrin 237 mg/dL N 203-362 % Iron Saturation 16 % N 15-55 Vitamin B12 And 05/01/2018 [facility] Vitamin B12 537 pg/mL N 180-914 6 Folate Serum [address] [place] [address] [phone] Folic Acid (Folate) 6.33 ng/mL >3.99 Laboratory test 05/01/2018 [facility] Ferritin 14.5 ng/mL N 11 -307 finding [address] [place] [address] [phone] CBC Auto Diff 05/01/2018 [facility] White Blood 4.7 10^3/uL N 3.5-10.8 [address] [facility] [place] [address] [phone] Red Blood Count 3.74 10^6/uL Low 4.00-5.40 [...] Blood Cells % 0 Lipid Profile 05/01/2018 [facility] Triglycerides 221 mg/dL 7 (Trig/Chol/HDL) [address] [place] [address] [phone] Cholesterol 171 mg/dL 8 HDL Cholesterol 26.6 mg/dL 9 LDL Cholesterol 100 mg/dL 10 Iron & Iron Binding 05/01/2018 [facility] Iron 32 g/dL Low 50-[address] [place] [address] [phone] Unsaturated Iron Binding 298 g/dL Total Iron Binding Capacity 330 g/dL N 250-450 Transferrin 236 mg/dL N 203-362 % Iron Saturation 10 % Low 15-55 Laboratory 05/01/2018 [facility] TSH (Thyroid 6.43 High 0.34- 5.60 11 test finding [address] Stim Horm) mcIU/[place] [address] [phone] Lipid Profile 04/22/2018 [facility] Triglycerides 177 mg/dL 12 (Trig/Chol/HD [address] L) [place] [address] [phone] Cholesterol 172 mg/dL 13 HDL Cholesterol 34.1 mg/dL 14 LDL Cholesterol 103 mg/dL 15 Laboratory test 04/22/2018 [facility] TSH (Thyroid 4.16 mcIU/mL N 0.34-5.[address] Stim [place]orm) [place] [address] [phone] CBC Auto Diff 04/22/2018 [facility] White Blood 7.5 10^3/uL N 3.5-10.[address] [place] [address] [phone] Red Blood Count 3.55 10^6/uL Low 4.00-5.40 [...] Red Blood Cells % 0 Laboratory 04/10/2018 [facility] Rapid Strep Negative Negative [address] [place] [address] [phone] Laboratory 04/10/2018 [facility] Rapid Strep A SEE RESULT [address] [place] [address] [phone] Laboratory 04/02/2018 [facility] Lamotrigine 15.9 g/mL 2.5 - 15.[address] (Lamictal) [place] [address] [phone] Comp Metabolic 04/02/2018 [facility] Sodium 137 mmol/L Low 139 -[address] [place] [address] [phone] Potassium 4.0 mmol/L N 3.5-5.0 Chloride 104 [...] Egfr Non- 83.6 >60 Egfr 107.5 >60 19 Laboratory test 03/10/2018 [facility] Lamotrigine 13.1 g/mL 2.5 - [address] (Lamictal) 15.0 [place] [address] [phone] Laboratory test 08/25/2017 [facility] TSH (Thyroid 1.89 N 0.34 -5.[address] Stim Horm) mcIU/mL 0 [place] [address] [phone] Laboratory test 07/22/2017 [facility] Hemoglobin A1c 5.2 % N Less 21 finding (Glyco HGB) than 6.0 [place] [address] [phone] Comp Metabolic 07/22/2017 [facility] Sodium 137 mmol/L N 133- [address] [place] [address] [phone] Potassium 4.1 mmol/L N 3.5-5.0 Chloride 105 [...] 72.2 N >60 Egfr 92.8 N >60 22 Urine Culture And 06/18/2017 [facility] Urine Culture SEE RESULT [address] [place] [address] [phone] Ua Routine 06/18/2017 [facility] In House Ua Specific 1.015 [place] Ua PH 6 Ua Color martín Ua Appera cloudy Ua WBC trace Ua Protein trace Ua Glucose neg Ua Ketones neg Ua Bilirubin neg Ua Urobilinogen neg Ua Nitrite neg Ua Occult Blood large Laboratory test 04/08/2017 [facility] Thyroglobulin AB <1.8 IU/ mL N <4.0 24 finding [address] [place] [address] [phone] Thyroperoxidase AB 315.57 IU/mL High <9 Free T4 (Free Thyroxine) 0.67 ng/dL N 0.61-1.12 TSH (Thyroid Stim Horm) 4.16 mcIU/mL N 0.34-5.60 Laboratory test 04/04/2017 [facility] Monospot Negative N Negative finding 101 [place] [address] [phone] Comp Metabolic 04/04/2017 [facility] Sodium 138 mmol/L N 133- 145 Panel 101 [place] [address] [phone] Potassium 3.7 mmol/L N 3.5-5.0 Chloride 107 [...] 86.6 N >60 Egfr 111.4 N >60 25 Urinalysis Profile 04/04/2017 [facility] Urine Color Yellow N [address] [place] [address] [phone] Urine Appearance Cloudy N Urine Specific [place] 1.019 N 1.010-1.030 Urine pH 7.0 N [...] Present Abnormal Absent Urine Culture And 04/04/2017 [facility] Urine Culture SEE RESULT [address] [place] [address] [phone] Laboratory test 04/04/2017 [facility] Magnesium 1.8 mg/dL Low 1.9-[address]7 [place] [address] [phone] Troponin-I (TnI) 0.00 ng/mL N <0.04 27 TSH (Thyroid Stim Horm) 6.69 mcIU/mL High 0.34-5.60 CBC Auto Diff 04/04/2017 [facility] White Blood 8.2 10^3/uL N 3.5-10.[address] [place] [address] [phone] Red Blood Count 3.94 10^6/uL Low 4.0-5.4 [...] Cells % 0 N Laboratory test 04/04/2017 [facility] Lactic Acid 1.7 mmol/L N 0.5-2.0 [address] [place] [address] [phone] Rapid Strep A SEE RESULT BELOW 29 Laboratory test 04/04/2017 [facility] Rapid Strep Negative N Negative [address] [place] [address] [phone] CBC Auto Diff 10/02/2016 [facility] White Blood 6.9 10^3/uL N 3.5-10.[address] [place] [address] [phone] Red Blood Count 4.03 10^6/uL N 4.0-5.4 [...] % 0 N Comp Metabolic Panel 10/02/2016 [facility] Sodium 136 mmol/L N 133-[address] [place] [address] [phone] Potassium 3.8 mmol/L N 3.5-5.0 Chloride 108 [...] 74.5 N >60 Egfr 95.9 N >60 31 Laboratory test 10/02/2016 [facility] Lamotrigine 12.6 g/mL N 2.5 - [address] (Lamictal) 15.0 [place] [address] [phone] Topomax (Topiramate) 2.3 g/mL N 33 Inr/Protime 03/10/2016 [facility] Inr 1.10 N 0.89-1.[address] [place] [address] [phone] Laboratory test 03/10/2016 [facility] Magnesium 2.2 mg/dL N 1.9-2.[address] [place] [address] [phone] Lipase 8 U/L Low 11.0-82.0 Creatine Kinase(CK) 63 U/L N 10-223 C Reactive Protein 14.41 mg/L High < 5.00 34 Troponin-I (TnI) 0.00 ng/mL N <0.03 35 Laboratory test 03/10/2016 [facility] HCG < 0.60 mIU/ mL N [address] [place] [address] [phone] TSH (Thyroid Stim Horm) 1.40 ?IU/mL N 0.34-5.60 B-Type Natriuretic Peptide BNP 18 pg/mL N 37 Lamotrigine (Lamictal) 14.9 g/mL N 2.5 - 15.0 38 Laboratory test 03/10/2016 [facility] Partial 31.7 seconds N 26.0-36.[address] [place] [address] [phone] Lactic Acid 1.3 mmol/L N 0.5-2.0 39 Comp Metabolic Panel 03/10/2016 [facility] Sodium 137 mmol/L N 133-[address] [place] [address] [phone] Potassium 3.7 mmol/L N 3.5-5.0 Chloride 108 [...] 72.6 N >60 Egfr 93.4 N >60 40 CKMB 03/10/2016 [facility] CKMB ng/mL 1.1 ng/mL N 0.6-6.[address] [place] [address] [phone] CBC Auto Diff 03/10/2016 [facility] White Blood 9.6 10^3/uL N 3.5-10.[address] [place] [address] [phone] Red Blood Count 4.58 10^6/uL N 4.0-5.4 [...] Cells % 0 N Laboratory test 02/26/2016 [facility] Vitamin D 31.3 ng/mL N 30-[address] Total 25(Oh) [place] [address] [phone] CBC Auto Diff 01/01/2016 [facility] White Blood 8.8 10^3/uL N 3.5-10.[address] [place] [address] [phone] Red Blood Count 4.00 10^6/uL N 4.0-5.4 [...] % 0 N Basic Metabolic Panel 01/01/2016 [facility] Sodium 138 mmol/L N 133-145 [address] [place] [address] [phone] Potassium 4.0 mmol/L N 3.5-5.0 Chloride 108 mmol/L N 101-111 Co2 Carbon Dioxide 22 mmol/L N 22-32 Anion Gap 8 mmol/L N 2-11 Glucose 92 mg/dL N 70-100 Blood Urea Nitrogen 9 mg/dL N 6-24 Creatinine 0.75 mg/dL N 0.51-0.95 BUN/Creatinine Ratio 12.0 N 8-20 Calcium 9.2 mg/dL N 8.6-10.3 Egfr Non- 88.5 N >60 Egfr 113.8 N >60 41 Laboratory test 01/01/2016 [facility] Alkaline 78 U/L N 34- [address] [place] [address] [phone] Laboratory test 12/25/2015 [facility] Glucose 98 mg/dL N 70- 100 42 finding [address] [place] [address] [phone] Laboratory test 12/25/2015 [facility] Vitamin D Total 25.9 Low 30-[address] 25(Oh) ng/[place] [address] [phone] TSH (Thyroid Stim Horm) 4.01 ?IU/mL N 0.34-5.60 44 Lipid Profile 12/25/2015 [facility] Triglycerides 214 mg/dL N 45 (Trig/Chol/HDL) [address] [place] [address] [phone] Cholesterol 177 mg/dL N 46 HDL Cholesterol 37.5 mg/dL N 47 LDL Cholesterol 97 mg/dL N 48 Laboratory test 12/20/2015 [facility] Cytology SEE RESULT BELOW [address] [place] [address] [phone] HPV Rna Ww/Reflex Genotype Negative N Negative 50 Urinalysis Profile 08/14/2015 [facility] Urine Color Yellow [place] [address] [place] [address] [phone] Urine Appearance Cloudy N Urine Specific [place] 1.013 N 1.010-1.030 Urine pH 6.0 N [...] Cell Present Abnormal Absent Laboratory test 08/14/2015 [facility] Urine Culture And SEE RESULT [address] [place] [address] [phone] Laboratory test 08/14/2015 [facility] Beta HCG (BHCG) < 0.[address] Quantitative mIU/[place] [address] [phone] CBC Auto Diff 06/11/2015 [facility] White Blood Count 6.3 10^3/ uL N 4.8-[address] 0[address]8 [place] [address] [phone] Red Blood Count 4.38 10^6/uL N 4.0-5.4 [...] Cells % 0.1 N Laboratory test 06/11/2015 [facility] HCG Qualitative Negative N Negative 52 finding [address] [place] [address] [phone] Urinalysis 06/11/2015 [facility] Urine Color Yellow N Profile 101 [place] [address] [phone] Urine Appearance Cloudy N Urine Specific [place] 1.026 N 1.010-1.030 Urine pH 5.0 N [...] Epithelial Cell Present Abnormal Absent Laboratory 06/11/2015 [facility] Lactic Acid 1.0 mmol/L N 0.5- 2.2 test finding [address] [place] [address] [phone] Urine Drug SCR 06/11/2015 [facility] Amphetamine Ur None N None Detect ED & Pain 101 [facility] [place] [address] [phone] Barbiturates Urine Screen None Detected N None Detect Benzodiazepine Urine Screen None Detected N None Detect Urine Cannabinoids Screen None Detected N None Detect Urine Cocaine Screen None Detected N None Detect Urine Opiates Screen Presumptive Posi <SEE NOTE> Abnormal None Detect 53 Urine Phencyclidine Screen None Detected N None Detect 54 Laboratory test 06/11/2015 [facility] Lamotrigine 11.0 g/mL N 2.5 - [address] (Lamictal) 15.0 [place] [address] [phone] Urine Culture And Sensitivities SEE RESULT BELOW 56 Laboratory test 05/16/2015 [facility] Culture SEE RESULT [address] [place] [address] [phone] CBC Auto Diff 03/16/2015 [facility] White Blood 8.6 10^3/uL N 4.8-[address] Count .8 [place] [address] [phone] Red Blood Count 4.41 10^6/uL N 4.0-5.4 [...] Cells % 0 N Laboratory test 03/16/2015 [facility] Monospot Negative N Negative [address] [place] [address] [phone] CBC Auto Diff 03/09/2015 [facility] White Blood 6.8 10^3/uL N 4.8-10.[address] [place] [address] [phone] Red Blood Count 4.28 10^6/uL N 4.0-5.4 [...] % 0 N Comp Metabolic Panel 03/09/2015 [facility] Sodium 136 mmol/L N 133-145 101 [place] [address] [phone] Potassium 4.0 mmol/L N 3.5-5.0 Chloride 107 [...] 91.8 N >60 Egfr 118.1 N >60 59 Urinalysis Profile 02/16/2015 [facility] Urine Color Yellow N [address] [place] [address] [phone] Urine Appearance Cloudy N Urine Specific [place] 1.017 N 1.010-1.030 Urine pH 6.0 N [...] Cell Present Abnormal Absent CBC Auto 02/16/2015 [facility] White Blood 11.5 10^3/uL High 4.8-10.[address] [place] [address] [phone] Red Blood Count 4.32 10^6/uL N 4.0-5.4 [...] % 0 N Urine Culture And 02/16/2015 [facility] Urine Culture (SEE NOTE ) [address] [place] [address] [phone] Comp Metabolic 02/16/2015 [facility] Sodium 139 mmol/L N 133- [address] 5 [place] [address] [phone] Potassium 4.3 mmol/L N 3.5-5.0 Chloride 106 [...] 90.4 N >60 Egfr 116.2 N >60 61 Laboratory test 02/16/2015 [facility] Magnesium 2.0 mg/dL N 1.9-2.[address] [place] [address] [phone] TSH (Thyroid Stimulating Horm) 1.87 IU/mL N 0.34-5.60 Lamotrigine 7.8 g/mL N 2.5 - 15.0 62 CBC Auto 02/14/2015 [facility] White Blood 13.0 10^3/uL High 4.8-10.[address] [place] [address] [phone] Red Blood Count 4.32 10^6/uL N 4.0-5.4 [...] % 0.1 N Comp Metabolic Panel 02/14/2015 [facility] Sodium 136 mmol/L N 133-145 [address] [place] [address] [phone] Potassium 4.5 mmol/L N 3.5-5.0 Chloride 103 [...] 83.8 N >60 Egfr 107.8 N >60 63 Laboratory test 01/26/2015 [facility] Surgical RUN DATE: [address] Pathology 02/02/ [place] [address] <SEE NOTE> [phone] Surgical 01/26/2015 [facility] S RUN DATE: [address] 02/02/ [place] [address] <SEE NOTE> [phone] Laboratory test 12/28/2014 [facility] Lamotrigine 12.4 N 2.5 [address] g/[place] [address] 15.0 [phone] Laboratory test 12/07/2014 [facility] Lamotrigine 9.5 g/mL N 2.5 [address] [place] [address] 15.0 [phone] Vitamin D 1,25 12/07/2014 [facility] Vitamin D 98 pg/mL Abnormal 18-7 68 And Vitamin D,[address] 1,25-Dihydroxy 8 [place] [address] [phone] Vitamin D, 25 12/07/2014 [facility] 25-Hydroxy 73 ng/mL N Hydroxy [address] Vitamin D2 [place] [address] [phone] 25-Hydroxy Vitamin D3 6.3 ng/mL N 25-Hydroxy Vitamin D Total 79 ng/mL N 69 Laboratory test 12/07/2014 [facility] In House Hemoglobin A1c 5.1 5-7 finding Lipid Panel - [facility] 08/10/2014 Creatine Kinase 76 U/L N 10-223 70, 71 Comp Metabolic 08/10/2014 Sodium 137 mmol/L N [...] 83.1 N >60 Egfr 106.9 N >60 72 Lipid Profile (Trig/Chol/HDL) 08/10/2014 Triglycerides 150 mg/dL N 73 Cholesterol 159 mg/dL N 74 HDL Cholesterol 26.7 mg/dL N 75 LDL Cholesterol 102 mg/dL N 76 Vitamin D, 25 Hydroxy 08/10/2014 25-Hydroxy Vitamin D2 41 ng/mL N 25-Hydroxy Vitamin D3 6.3 ng/mL N 25-Hydroxy Vitamin D Total 47 ng/mL N 77 Iron & Iron Binding Capacity 08/10/2014 Iron 46 g/dL Low 50-212 Unsaturated Iron Binding 361 g/dL N Total Iron Binding Capacity 407 g/dL N 250-450 % Iron Saturation 11 % Low 15-55 Laboratory test finding 08/10/2014 Ferritin < 10.0 ng/mL Low 11-307 78 Vitamin B12 460 pg/mL N 180-914 79 Folate 11.39 ng/mL N >3.99 80 Laboratory test 08/10/2014 TSH (Thyroid 2.24 IU/mL N 0.34-5.60 81 finding Stimulating Horm) CBC Auto Diff 08/10/2014 [...] % 0.1 N Comp Metabolic Panel 01/10/2014 [facility] Sodium 139 mmol/L 133-[address] [place] [address] [phone] Potassium 3.9 mmol/L 3.7-5.6 Chloride 107 mmol/L [...] Egfr Non- 88.2 >60 Egfr 113.4 >60 82 CBC Auto Diff 01/10/2014 [facility] White Blood 8.7 10^3/uL 4.8-10.[address] [place] [address] [phone] Red Blood Count 4.28 10^6/uL 4.0-5.4 Hemoglobin [...] Blood Cells % 0 Laboratory test 10/28/2013 [facility] Lamotrigine 8.4 g/mL 2.5 - 15.0 [address] [place], [place] [address] [phone] Laboratory test 09/01/2013 [facility] Lamotrigine 7.6 g/mL 2.5 - 15.0 [address] [place] [address] [phone] Laboratory test 05/29/2013 [facility] Lamotrigine 10.9 g/mL 2.5 - 15.0 [address] [place] [address] [phone] Urine Culture 05/28/2013 [facility] Urine Culture (SEE NOTE) [address] Sensitivities [place], [place] [address] [phone] Laboratory test 12/15/2012 [facility] Lamotrigine 5.2 g/mL 2.5 - 15.0 [address] [place], [place] [address] [phone] Laboratory test 10/22/2012 [facility] Serum Negative Negative [address] [place], [place] [address] [phone] Urine Culture 10/22/2012 [facility] Urine Culture (SEE NOTE) [address] Sensitivities [place], [place] [address] [phone] Throat-Beta 09/25/2012 [facility] Throat Beta (SEE NOTE) 90 Strept 101 [facility] [place] [place] [address] [phone] Laboratory test 09/03/2012 [facility] Lamotrigine 3.9 g/mL 2.5 - 15.0 91 finding 101 [place] [address] [phone] Comp Metabolic 07/14/2012 [facility] Sodium 138 mmol/L 135- 145 Panel 101 [place] [address] [phone] Potassium 4.3 mmol/L 3.5-5.0 Chloride 106 mmol/L 101-111 Co2 (Carbon Dioxide) 28.0 mmol/L 22-32 Anion Gap 4.0 mmol/L 2-11 92 Glucose 93 mg/dL 70-100 BUN 10 mg/dL 6-24 Creatinine 0.8 mg/dL 0.50-1.40 One Over Creatinine 1.25 BUN/Creatinine Ratio 12.5 8-20 Calcium 9.4 mg/dL 8.1-9.9 Total Protein 6.8 GM/DL 6.2-8.1 Albumin 3.9 GM/DL 3.6-5.4 Globulin 2.9 GM/DL 2-4 Albumin/Globulin Ratio 1.3 1-3 Bilirubin Total 0.5 mg/dL 0.4-1.5 93 Alkaline Phosphatase 59 U/L 30-110 Alt (SGPT) 16 U/L 14-54 Ast (Sgot) 19 U/L 12-42 eGFR Non- 84.2 > 60 eGFR 108.3 > 60 94 CBC No Diff 07/14/2012 [facility] White Blood Count 8.2 CUMM 4.8-10.8 [address] [place] [address] [phone] Red Cell Count 3.83 CUMM Low 4.2-5.4 Hemoglobin 12.3 g/dL 12.0-16.0 Hematocrit 37 % 35-47 Mean Corpuscular Volume 96 um3 79-97 Mean Corpuscular Hemoglob 32 pg High 27-31 Mean Corpuscular HGB Cone 34 g/dL 32-36 Redcell Distribution WDTH 15 % 10.5-15 Platelet Count 312 CUMM 150-450 Mean Platelet Volume 8.6 um3 7.4-10.4 Laboratory test 07/14/2012 [facility] Lamotrigine 3.8 g/mL 2.5 - 15.[address] [address] [phone] 1 Because ethnic data is not always readily [...] 15-29 5 Kidney failure <15 (or dialysis) 2 <5.0 Negative 5.0 - 25.0 Indeterminate (Repeat testing recommended after 72 hours) >25.0 Positive Perimenopausal women can display HCG levels of up to 20 mIU/mL 3 [employer] Utility Worker: [id number] 4 SEE RESULT BELOW Name: DEAN PENG : [address]: Donna Peguero MD Acct: [id number] Unit: [id number] AGE: 38 Location: [facility] Re11/17/18 SEX: F Status: REG REF SPEC: [id number] DEBBIE: 11/17/18 [facility] DR: Donna Peguero MD REQ: [id number] RECD: 11/17/18 STATUS: COMP _ SOURCE: THROAT SPDESC: ORDERED: Strep A Request COMMENTS: [id number] Procedure Result Reported Site Rapid Strep A Request Final 11/17/181848 ML Specimen received for Rapid Strep A Molecular testing * ML - Main Lab . END OF REPORT DEPARTMENT OF PATHOLOGY, [address] [place] [address] Ty Guo M.D. Director [facility] # [id number] 5 Cloth Printing Utility Worker: [id number] Normal Range 180 to 914 Indeterminate Range 145 to 180 Deficient Range <145 7 Desirable: <150 Borderline High: 150-199 High: 200-499 Very High: >500 8 Desirable: <200 Borderline High: 200-239 High: >239 9 Low: <40 Desirable: 40-60 High: >60 10 Desirable: <100 Near Optimal: 100-129 Borderline High: 130-159 High: 160-189 Very High: >189 11 FASTING 10 HOUR 12 Desirable: <150 Borderline High: 150-199 High: 200-499 Very High: >500 13 Desirable: <200 Borderline High: 200-239 High: >239 14 Low: <40 Desirable: 40-60 High: >60 15 Desirable: <100 Near Optimal: 100-129 Borderline High: 130-159 High: 160-189 Very High: >189 16 [employer] Utility Worker: [id number] 17 SEE RESULT BELOW Name: DEAN PENG : [address]: Cydney Chen MD Acct: [id number] Unit: [id number] AGE: 37 Location: ED Re04/10/18 SEX: F Status: REG ER SPEC: [id number] DEBBIE: 04/10/18 [facility] DR: Cydney Chen MD REQ: [id number] RECD: 04/10/18 STATUS: TOMASA COCHRAN DR: Tanvir Vizcarra MD _ SOURCE: THROAT SPDESC: ORDERED: Strep A Request Procedure Result Reported Site Rapid Strep A Request Final 04/10/18236 ML Specimen received for Rapid Strep A Molecular testing * ML - Main Lab . END OF REPORT DEPARTMENT OF PATHOLOGY, [address] [place] [address] Ty Guo M.D. Director [facility] # [id number] 18 ADDITIONAL INFORMATION This test was developed and its performance characteristics determined by [facility] in a manner consistent with CLIA requirements. This test has not been cleared or approved by the U.S. Food and Drug Administration. Test Performed by: [facility] [address] [place] [id number] 19 Because ethnic data is not always readily [...] 15-29 5 Kidney failure <15 (or dialysis) 20 ADDITIONAL INFORMATION This test was developed and its performance characteristics determined by [facility] in a manner consistent with CLIA requirements. This test has not been cleared or approved by the U.S. Food and Drug Administration. Test Performed by: [facility] [id number] [place] [address] 21 Therapeutic target for the treatment of diabetes Mellitus patients is <7% HBA1C, and in selective patients <6.0%.Please refer to [place] [employer] Diabetic care guidelines for further information. 22 Because ethnic data is not always [...] 5 Kidney failure <15 (or dialysis) 23 SEE RESULT BELOW Name: DEAN PENG : [address]: Tanvir Vizcarra MD Acct: [id number] Unit: [id number] AGE: 36 Location: [facility] Re06/18/17 SEX: F Status: REG REF SPEC: [id number] DEBBIE: 06/18/17-1450 [facility] [address]: Tanvir Vizcarra MD REQ: [id number] RECD: 06/18/17 STATUS: COMP _ SOURCE: URINE SPDESC: ORDERED: Urine Culture COMMENTS: [id number] Urine Source: Random Procedure Result Reported Site Urine Culture Final 06/19/17- 1623 ML No growth of clinically significant organisms * ML - MAIN LAB ([facility]) . END OF REPORT * ML=Testing performed at Main Lab DEPARTMENT OF PATHOLOGY, [address] [place] [address] Ty Guo M.D. Director [facility] # [id number] 24 ADDITIONAL INFORMATION The thyroglobulin antibody testing method is an immunoenzymatic assay manufactured by [employer] and performed on the [employer] DXI 800. Values obtained from different assay methods or kits may be different and cannot be used interchangeably. The results cannot be interpreted as absolute evidence for the presence or absence of malignant disease. Test Performed by: [address] [address] 25 Because ethnic data is not always readily [...] 15-29 5 Kidney failure <15 (or dialysis) 26 SEE RESULT BELOW Name: DEAN PENG : [address]: Vance Garnett DO Acct: [id number] Unit: [id number] AGE: 36 Location: ED Re04/04/17 SEX: F Status: DEP ER SPEC: [id number] DEBBIE: 04/04/17-[address]: Vance Garnett DO REQ: [id number] RECD: 04/04/17 STATUS: TOMASA COCHRAN DR: [facility] Baldev Bonner MD _ SOURCE: URINE SPDESC: ORDERED: Urine Culture Procedure Result Reported Site Urine Culture Final 04/06/17- 0920 ML No growth of clinically significant organisms * ML - MAIN LAB ([facility]) . END OF REPORT * ML=Testing performed at Main Lab DEPARTMENT OF PATHOLOGY, [address] [place] [address] Ty Guo M.D. Director [facility] # [id number] 27 99th percentile=0.04 ng/mL Troponin results at [facility] and [facility] are not interchangeable. 28 [facility] Severe Sepsis and Septic Shock Management Bundle Measure requires all lactic acids initially measuring >2.0 mmol/L be repeated. 29 SEE RESULT BELOW Name: DEAN PENG : [address]: [facility] Acct: [id number] Unit: [id number] AGE: 36 Location: ED Re04/04/17 SEX: F Status: REG ER SPEC: [id number] DEBBIE: 04/04/17-[address]: Vance Garnett DO REQ: [id number] RECD: 04/04/17 STATUS: TOMASA COCHRAN DR: [facility] Baldev Bonner MD _ SOURCE: [facility]: ORDERED: Strep A Request Procedure Result Reported Site Rapid Strep A Request Final 04/04/171046 ML Specimen received for Rapid Strep A Molecular testing * ML - MAIN LAB ([facility]) . END OF REPORT * ML=Testing performed at Main Lab DEPARTMENT OF PATHOLOGY, [address] [place] [address] Ty Guo M.D. Director [facility] # [id number] 30 [employer] Utility Worker: [id number] 31 Because ethnic data is not always readily [...] 15-29 5 Kidney failure <15 (or dialysis) 32 ADDITIONAL INFORMATION This test was developed and its performance characteristics determined by [facility] in a manner consistent with CLIA requirements. This test has not been cleared or approved by the U.S. Food and Drug Administration. Test Performed by: [facility] [place] [address] Underground Supervisor: Kenrick Hightower II, M.D., Ph.D. 33 REFERENCE VALUE Reference values depend on clinical use: Anticonvulsant: 5.0-20.0 mcg/mL Psychiatric: 2.0-8.0 mcg/mL ADDITIONAL INFORMATION This test was developed and its performance characteristics determined by [facility] in a manner consistent with CLIA requirements. This test has not been cleared or approved by the U.S. Food and Drug Administration. Test Performed by: [facility] [place] [address] Underground Supervisor: Kenrick Hightower II, M.D., Ph.D. 34 Acute inflammation: >10.00 35 Reference Range and Interpretation: TnI (ng/mL) Interpretation Less Than 0.03 ng/mL Not supportive of diagnosis of SC 0.03 - 0.50 ng/mL Indeterminate: suggest serial studies if clinically indicated. Greater than 0.5 ng/mL Consistent with diagnosis of SC 36 <5.0 Negative 5.0 - 25.0 Indeterminate (Repeat testing recommended after 72 hours) >25.0 Positive Perimenopausal women can display HCG levels of up to 20 mIU/mL 37 >100 to <200 pg/mL: likely compensated congestive heart failure (CHF) 200 to 400 pg/mL: likely moderate CHF >400 pg/mL: likely moderate to severe CHF 38 Test Performed by: [address] [address] Underground Supervisor: Kenrick Hightower II, M.D., Ph.D. 39 [facility] Severe Sepsis and Septic Shock Management Bundle Measure requires all lactic acids initially measuring >2.0 mmol/L be repeated. 40 Because ethnic data is not always [...] 5 Kidney failure <15 (or dialysis) 41 Because ethnic data is not always readily [...] 15-29 5 Kidney failure <15 (or dialysis) 42 FASTING 10 HOUR 43 FASTING 10 HOUR 44 FASTING 10 HOUR 45 Desirable <150 Borderline high 150-199 High 200-499 Very High >500 46 Desirable <200 Borderline high 200-239 High >239 47 Low <40 Desirable: 40-60 High: >60 48 Desirable: <100 mg/dL Near Optimal: 100-129 mg/dL Borderline High: 130-159 mg/dL High: 160-189 mg/dL Very High: >189 mg/dL 49 SEE RESULT BELOW Name: DEAN PENG : [address]: Jeremiah Zendejas TICKET DISPENSER CHANGER Acct: [id number] Unit: [id number] AGE: 35 Location: [facility] Re12/20/15 SEX: F Status: REG REF SPEC: [id number] DEBBIE: 12/20/15-1542 [facility] DR: Jeremiah Zendejas TICKET DISPENSER CHANGER REQ: [id number] RECD: 12/20/15 STATUS: SOUT _ ORDERED: IMAGE [...] was evaluated with the assistance of the [employer] Test Imaging System. Due to cytologic findings at the cosmetic sales assistant microscope, comprehensive manual rescreening by a Test Rider may be required. The Pap Smear is [...] evaluated every 1-3 years. RUN DATE: 12/22/15 [facility] LAB LIVE PAGE 1 Patient: DEAN PENG [id number] (Continued) CONTINUED ON NEXT PAGE * ML=Testing performed at Main Lab DEPARTMENT OF PATHOLOGY, [address] [place] [address] Ty Guo M.D. Director [facility] # [id number] 50 The high-risk HPV types detected by the assay include: 16, 18, 31, 33, 35, 39, 45, 51, 52, 56, 58, 59, 66, and 68. 51 SEE RESULT BELOW Name: DEAN PENG DOB: [address]: Jeremiah Zendejas NP Acct: [id number] Unit: [id number] AGE: 34 Location: LAB Re08/14/15 SEX: F Status: REG REF SPEC: [id number] DEBBIE: 08/14/15-[address]: Jeremiah Zendejas NP REQ: [id number] RECD: 08/14/15 STATUS: COMP _ SOURCE: URINE SPDESC: ORDERED: Urine Culture Procedure Result Verified Site Urine Culture Final 08/16/15- 112 ML Organism 1 NORMAL JUDE [place] Count 25-50,000 (Moderate) CFU/ML * ML - [facility] ([facility]) . END OF REPORT * ML=Testing performed at Main Lab DEPARTMENT OF PATHOLOGY, [address] [place] [address] Ty Guo M.D. Director [facility] # [id number] 52 Comment: f 53 Presumptive Positive 54 The urine specimen was tested at the listed cutoffs: Drug class test level (ng/mL) Amphetamines 500 Barbituates 200 Benzodiazepine metabolites 200 Cocaine metabolites 150 Cannabinoids 50 Opiates 300 Pcp 25 This is a screening procedure. Positive results are not confirmed. Specimen was received without chain of custody. Results should be used for medical purposes only. 55 Test Performed by: [address] [address] Underground Supervisor: Kenrick Hightower II, M.D., Ph.D. 56 SEE RESULT BELOW Name: DEAN PENG : [address]: Justin Tom MD Acct: [id number] Unit: [id number] AGE: 34 Location: ED Re06/11/15 SEX: F Status: DEP ER SPEC: [id number] DEBBIE: 06/11/[address]: Justin Tom MD REQ: [id number] RECD: 06/11/15 STATUS: TOMASA COCHRAN DR: [facility] Jeremiah Zendejas TICKET DISPENSER CHANGER _ SOURCE: URINE SPDESC: ORDERED: Urine Culture Procedure Result Verified Site Urine Culture Final 06/14/15- 938 ML Organism 1 NORMAL JUDE [place] Count >100,000 (Many) CFU/ML * ML - MAIN LAB ([facility]) . END OF REPORT * ML=Testing performed at Main Lab DEPARTMENT OF PATHOLOGY, [address] [place] [address] Ty Guo M.D. Director [facility] # [id number] 57 SEE RESULT BELOW Name: DEAN PENG : [address]: Jeremiah Zendejas NP Acct: [id number] Unit: [id number] AGE: 34 Location: [facility] Re05/16/15 SEX: F Status: REG REF SPEC: [id number] DEBBIE: 05/16/15-[address]: Jeremiah Zendejas NP REQ: [id number] RECD: 05/16/15 STATUS: COMP _ SOURCE: THROAT SPDESC: ORDERED: Throat Culture Procedure Result Verified Site Throat Culture Final 05/18/15- 0752 ML Organism 1 NORMAL JUDE Quantity 2+ Throat cultures are clinically indicated to detect the presence of group A strep, arcanobacterium and yeast. In certain cases, predominating organisms will be reported. * ML - MAIN LAB ([facility]) . END OF REPORT * ML=Testing performed at Main Lab DEPARTMENT OF PATHOLOGY, [facility] [employer] [place], [place] [address] Ty Guo M.D. Director [facility] # [id number] 58 N 59 Because ethnic data is not always [...] failure <15 (or dialysis) 60 RUN DATE: 02/19/15 [facility] LAB LIVE PAGE 1 RUN TIME: [address] [place] [address] Specimen Inquiry Name: DEAN PENG : [address]: Srinivas Boston MD Acct: [id number] Unit: [id number] AGE: 34 Location: ED Re02/16/15 SEX: F Status: DEP ER SPEC: [id number] DEBBIE: 02/16/15 [facility] [address]: Hernando House DO REQ: [id number] RECD: 02/16/15 STATUS: TOMASA COCHRAN DR: [facility] Marito Turpin III, MD _ SOURCE: URINE SPDESC: ORDERED: Urine Culture Procedure Result Verified Site Urine Culture Final 02/19/15- 0834 ML Organism 1 ESCHERICHIA COLI [place] Count 25-50,000 (Moderate) CFU/ML Organism 2 NORMAL JUDE [place] Count 25-50,000 (Moderate) CFU/ML 1. ESCHERICHIA COLI [...] antibiotic reporting. * ML - MAIN LAB ([facility]) . END OF REPORT * ML=Testing performed at Main Lab DEPARTMENT OF PATHOLOGY, [address] [place] [address] Ty Guo M.D. Director [facility] # [id number] 61 Because ethnic data is not always [...] 5 Kidney failure <15 (or dialysis) 62 Test Performed by: [address] [address] Underground Supervisor: Kenrick Hightower II, M.D., Ph.D. 63 Because ethnic data is not always readily [...] 15-29 5 Kidney failure <15 (or dialysis) 64 RUN DATE: 02/02/15 [facility] LAB LIVE PAGE 1 RUN TIME: [address] [place] [address] Specimen Inquiry Name: DEAN PENG : [address]: Jeremiah Zendejas NP Acct: [id number] Unit: [id number] AGE: 34 Location: [facility] Re01/26/15 SEX: F Status: REG REF SPEC: [id number] DEBBIE: 01/26/15-[address]: Tanvir Vizcarra MD REQ: [id number] RECD: 01/26/15 STATUS: SHAUN COCHRAN DR: Jeremiah Zendejas TICKET DISPENSER CHANGER _ ORDERED: GOM METH STN, PASS STAIN, [...] performed at Main Lab DEPARTMENT OF PATHOLOGY, [address] [place] [address] Ty Guo M.D. Director [facility] # [id number] 65 RUN DATE: 02/02/15 [facility] LAB LIVE PAGE 1 RUN TIME: [address] [place] [address] Specimen Inquiry Name: DEAN PENG : [address]: Jeremiah Zendejas NP Acct: [id number] Unit: [id number] AGE: 34 Location: [facility] Re01/26/15 SEX: F Status: REG REF SPEC: DEBBIE: 01/26/[address]: Tanvir Vizcarra MD REQ: [id number] RECD: 01/26/15 STATUS: SHAUN COCHRAN DR: Jeremiah Zendejas TICKET DISPENSER CHANGER _ ORDERED: GOM METH STN, PASS STAIN, [...] performed at Main Lab DEPARTMENT OF PATHOLOGY, [facility] [employer] [place], [place] [address] Ty Guo M.D. Director [facility] # [id number] RUN DATE: 02/02/15 [facility] LAB LIVE PAGE 2 RUN TIME: [address] [facility] [place], [place] [address] Specimen Inquiry Patient: GINETTEDEAN L [id number] (Continued) MICROSCOPIC DESCRIPTION (Continued) Signed (signature on file) Griselda Garsia MD 0928 END OF REPORT * ML=Testing performed at Main [facility] DEPARTMENT OF PATHOLOGY, [address] [place] [address] Ty Guo M.D. Director [facility] # [id number] 66 Test Performed by: [place] [address] Underground Supervisor: Kenrick Hightower II, M.D., Ph.D. 67 Test Performed by: [place] [address] Underground Supervisor: Kurt Hinton M.D. 68 Test Performed by: [place] [address] Underground Supervisor: Kurt Hinton M.D. 69 Interpretation: 51-80 ng/mL (increased risk of hypercalciuria) REFERENCE VALUE 25-HYDROXY D TOTAL (D2+D3) Optimum levels in the healthy population are 20-50, patients with bone disease may benefit from higher levels within this range. Test Performed by: [place] [address] Underground Supervisor: Kurt Hinton M.D. 70 FASTING 10 HOUR 71 FASTING 10 HOUR 72 Because ethnic data is not always readily [...] 15-29 5 Kidney failure <15 (or dialysis) 73 Desirable <150 Borderline high 150-199 High 200-499 Very High >500 74 Desirable <200 Borderline high 200-239 High >239 75 Low <40 Desirable: 40-60 High: >60 76 Desirable <100 Near Optimal 100-129 Borderline high 130-159 High 160-189 Very High >189 77 REFERENCE VALUE 25-HYDROXY D TOTAL (D2+D3) Optimum levels in the healthy population are 20-50, patients with bone disease may benefit from higher levels within this range. Test Performed by: [place] [address] Underground Supervisor: Kurt Hinton M.D. 78 FASTING 10 HOUR 79 Normal Range 180 to 914 Indeterminate Range 145 to 180 Deficient Range <145 80 FASTING 10 HOUR 81 FASTING 10 HOUR 82 Because ethnic data is not always readily [...] 15-29 5 Kidney failure <15 (or dialysis) 83 Test Performed by: [place] [address] Underground Supervisor: Luis Altamirano III, M.D. 84 Test Performed by: [place] [address] Underground Supervisor: Luis Altamirano III, M.D. 85 Test Performed by: [facility] - [address] [address] Underground Supervisor: Luis Altamirano III, M.D. 86 RUN DATE: 05/30/13 [facility] LAB LIVE PAGE 1 RUN TIME: [address] [place] [address] Specimen Inquiry Name: DEAN KEYES : [address]: Momo Diaz MD Acct: [id number] Unit: [id number] AGE: 32 Location: [facility] Re05/28/13 SEX: F Status: DEP ER SPEC: [id number] DEBBIE: 05/28/13-[address] [facility] [address]: Momo Diaz MD REQ: [id number] RECD: 05/28/13 STATUS: TOMASA COCHRAN DR: Tanvir Vizcrara MD _ SOURCE: URINE SPDESC: ORDERED: Urine Culture QUERIES: Medent Number [id number] Procedure Result Verified Site Urine Culture Final 05/30/13- 1112 ML Organism 1 NORMAL JUDE [place] Count 25-50,000 (Moderate) CFU/ML END OF REPORT * ML=Testing performed at Main Lab DEPARTMENT OF PATHOLOGY, [facility] [employer] [place], [place] [address] Ty Guo M.D. Director [facility] Permit #[id number] 87 Test Performed by: [address] [address] Underground Supervisor: Luis Altamirano III, M.D. 88 This test detects intact HCG only and is indicated for the early detection of . 89 RUN DATE: 10/24/12 [facility] LAB LIVE PAGE 1 RUN TIME: [address] [facility] [place] [place], [place] [address] Specimen Inquiry Name: DEAN KEYES : [address]: Charline BAINS,Lynette Davis Acct: [id number] Unit: [id number] AGE: 32 Location: [facility] Re10/22/12 SEX: F Status: DEP ER SPEC: [id number] DEBBIE: 10/22/12-145 [facility] [address]: Charline BAINS,Lynette Davis REQ: [id number] RECD: 10/22/12 STATUS: TOMASA COCHRAN DR: GISSELL Carlin MD,Yudi Yadav MD,Clinton Blanco _ SOURCE: URINE SPDESC: ORDERED: Urine Culture Procedure Result Verified Site Urine Culture Final 10/24/12- 0928 ML Organism 1 STREP GROUP B [place] Count 25-50,000 (Moderate) CFU/ML Organism 2 NORMAL JUDE [place] Count 75-100,000 (Many) CFU/ML Susceptibility testing of penicillins and other B-lactams approved by FDA for treatment of Streptococcus pyogenes (Group A Strep) and Streptococcus agalactiae (Group B Strep) is not necessary for clinical purposes and need not be done routinely, since as with vancomycin, resistant strains have not been recognized. (CLSI K401-H35;p.66) Positive isolates will be saved for one week. Please call the Microbiology Laboratory if further susceptibility testing is needed. END OF REPORT * ML=Testing performed at Main Lab DEPARTMENT OF PATHOLOGY, [facility] [employer] [place], [place] [address] Ty Guo M.D. Director [facility] Permit #[id number] 90 RUN DATE: 09/27/12 [facility] LAB LIVE PAGE 1 RUN TIME: [address] [facility] [place], [place] [address] Specimen Inquiry Name: DEAN KEYES Lee : [address]: Lucas Arce MD Acct: [id number] Unit: [id number] AGE: 31 Location: [facility] Re09/25/12 SEX: F Status: DEP ER SPEC: [id number] DEBBIE: 09/25/12-[address]: Lucas Arce MDQ: [id number] RECD: 09/25/12 STATUS: COMP [facility] DR: GISSELL Carlin MD,Yudi _ SOURCE: THROAT SPDESC: ORDERED: Throat Beta Str Procedure Result Verified Site Throat Beta Strep Culture Final 09/27/12801 ML Negative For Group A Beta Streptococcus END OF REPORT * ML=Testing performed at Main Lab DEPARTMENT OF PATHOLOGY, [address] [place] [address] Ty Guo M.D. Director [facility] Permit #[id number] 91 Test Performed by: [address] [address] Underground Supervisor: Luis Altamirano III, M.D. R 92 Anion gap measurement may be of limited value in the presence of any alkalosis, especially in a combined acid base disorder. . 93 A metabolite of Naproxen, O-desmethylnaproxen, has been shown to interfere with the [place] method for measuring total bilirubin. Samples from patients who have taken Naproxen have shown spurious elevation in total bilirubin levels. 94 Because ethnic data is not always readily [...] 15-29 5 Kidney failure <15 (or dialysis) 95 Test Performed by: [place] [address] Underground Supervisor: Luis Altamirano III, M.D. Procedures Date Code Description Status 08/20/2017 15755 Polysomnography Sleep Staging 4+ Parameters Completed 07/03/2016 30835 EEG Monitoring & Video Recording Completed 07/02/2016 91157 EEG Monitoring & Video Recording Completed 07/01/2016 30586 EEG Monitoring & Video Recording Completed 06/30/2016 51904 EEG Monitoring & Video Recording Completed 06/29/2016 71096 EEG Monitoring & Video Recording Completed 06/28/2016 25866 EEG Monitoring & Video Recording Completed 01/15/2016 80028 Pulmonary Function><Bronchodil Completed 12/21/2015 58503 EKG Tracing & Interpretation Completed 12/20/2015 22960 EKG Tracing & Interpretation Completed 01/26/2015 15691 Biopsy Skin Lesion Single Completed 12/28/2014 01838 EEG Recording Awake & Asleep Completed 01/15/2013 79077 ECHO Stress Test Incl Perf Contiuous ekg Monitoring W/Phys Completed Superv 12/15/2012 91120 Cardiac Event Monitor Completed 12/11/2012 06706 ECHO Transthoracic, Real-Time 2D With Doppler And Color Completed Flow 11/18/2012 13417 EKG Tracing & Interpretation Completed 09/03/2012 92398 Holter Monitor Review (24 hr) review & interp only Completed 09/01/2012 45092 Holter Monitor Review (24 hr) review & interp only Completed 08/21/2012 84488 EEG Recording Awake & Asleep Completed Encounters Type Date Location Provider Dx Diagnosis Office Visit 11/17/2018 [facility] Internal Donna Peguero MD J02.9 Acute pharyngitis, 3:00p Medicine - [address] H60.93 Unspecified otitis externa, bilateral Office Visit 10/21/2018 1:20p [facility] Internal Jose Bell, J01.90 Acute sinusitis, Medicine - AIRWORTHINESS SAFETY INSPECTOR [address] R05 Cough H66.92 Otitis media, unspecified, left ear Office Visit 08/19/2018 1:00p [facility] Internal Jose Bell J01.90 Acute sinusitis, Medicine - AIRWORTHINESS SAFETY INSPECTOR [address] R05 Cough Z23 Encounter for immunization Office Visit 07/15/2018 1:20p [facility] Internal Jose Bell, Z00.01 Encounter for Medicine - [place] AIRWORTHINESS SAFETY INSPECTOR general adult Rd medical exam w abnormal findings G47.33 Obstructive sleep apnea (adult) (pediatric) J45.30 Mild persistent asthma, uncomplicated L03.116 Cellulitis of left lower limb M25.562 Pain in left knee D50.9 Iron deficiency anemia, unspecified 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 D17.1 Benign lipomatous neoplasm of skin, subcu of trunk Z68.43 Body mass index (BMI) 50-59.9 , adult Office Visit 05/08/2018 1:40p [facility] Internal Andreaofia E03.9 Hypothyroidism, Medicine - Ray, AIRWORTHINESS SAFETY INSPECTOR unspecified [address] D50.9 Iron deficiency anemia, unspecified K13.79 Other lesions of oral mucosa J06.9 Acute upper respiratory infection, unspecified Office Visit 04/22/2018 11:00a [facility] Internal Jose Bell, H81.399 Other peripheral Medicine - AIRWORTHINESS SAFETY INSPECTOR vertigo, [address] unspecified ear G40.909 Epilepsy, unsp, not intractable, without status epilepticus E03.9 Hypothyroidism, unspecified E66.01 Morbid (severe) obesity due to excess calories N92.0 Excessive and frequent menstruation with regular cycle Z13.220 Encounter for screening for lipoid disorders Office Visit 03/10/2018 2:40p [facility] Internal Tanvir H81.399 Other peripheral Elizabeth Vzicarra M.D. vertigo, [address] unspecified ear G40.909 Epilepsy, unsp, not intractable, without status epilepticus Office Visit 01/21/2018 9:40a [facility] Internal Baldev Beck J45.40 Moderate persistent Elizabeth Bonner M.D.,FACP asthma, [address] uncomplicated Z23 Encounter for immunization Office Visit 01/15/2018 [facility] Internal Tanvir E03.9 Hypothyroidism, 1:40p [...] intractable, without status migrainosus Office Visit 10/16/2017 [facility] Internal Tanvir E03.9 Hypothyroidism, 1:40p [...] [facility] apnea (adult) [facility] (pediatric) E66.01 Morbid (severe) obesity due to excess calories Office Visit 07/21/2017 10:15a [facility] Diana Escalona, R06.83 [facility] J44.9 Chronic obstructive pulmonary disease, unspecified E66.01 Morbid (severe) obesity due to excess calories Office 07/18/2017 [facility] Clinton Blanco G43.909 Migraine, unsp, Visit 3:00p Clinic Pablo Yadav not intractable, without status migrainosus F44.5 Conversion disorder with seizures or convulsions Office Visit 07/17/2017 [facility] Francia Ramey E03.9 Hypothyroidism, 1:20p Elizabeth Vizcarra M.D. unspecified [address] E66.01 Morbid (severe) obesity due to excess calories R73.9 Hyperglycemia, unspecified Office Visit 06/18/2017 1:20p [facility] Internal Tanvir Vizcarra, R30.0 Dysuria Medicine - [place] Office Visit 05/15/2017 2:00p [facility] Internal Tanvir Vizcarra, Z00.00 Encntr [...] seizures or convulsions Office Visit 04/08/2017 11:20a [facility] Internal Tanvir Vizcarra, J06.9 Acute upper Medicine - [place] respiratory [address] infection, unspecified H81.393 Other peripheral vertigo, bilateral E03.9 Hypothyroidism, unspecified Office Visit 04/02/2017 [facility] Internal Marito Gruber K08.89 Other specified 2:20p Elizabeth Turpin M.D. disorders of teeth [place] and supporting structures Office Visit 03/25/2017 [facility] Francia Ramey K05.00 Acute gingivitis, 3:40p Elizabeth Vizcarra plaque induced [address] M.D. Office Visit 10/31/2016 [facility] Internal Jeremiah Zendejas, J00 Acute nasopharyngitis 2:20p Medicine - JANNIE [common cold] [address] Office Visit 10/29/2016 [facility] Francia Zendejas F41.9 Anxiety disorder, 11:00a Medicine - TICKET DISPENSER CHANGER unspecified [address] F33.9 Major depressive disorder, recurrent, unspecified F44.5 Conversion disorder with seizures or convulsions G43.909 Migraine, unsp, not intractable, without status migrainosus Z02.71 Encounter for disability determination Office 10/17/2016 [facility] Clinton Blanco G43.909 Migraine, unsp, Visit 10:00a Clinic Pablo Yadav not intractable, without status migrainosus F44.5 Conversion disorder with seizures or convulsions Office Visit 10/07/2016 10:40a [facility] Internal Jeremiah Bruneian, G43.909 Migraine , unsp, Medicine - TICKET DISPENSER CHANGER not intractable, [address] without status migrainosus F33.9 Major depressive disorder, recurrent, unspecified D48.5 Neoplasm of uncertain behavior of skin R22.2 Localized swelling, mass and lump, trunk Office Visit 07/04/2016 [facility] Kady Baker F44.5 Conversion 11:01a Clinic MD disorder with seizures or convulsions Office Visit 07/03/2016 Neurohospital[facility]atti Baker F44.5 Conversion 11:01a Clinic MD disorder with seizures or convulsions G43.909 Migraine, unsp, not intractable, without status migrainosus Office Visit 07/02/2016 [facility] Baker F44.5 Conversion 11:00a Clinic MD disorder [...] status migrainosus Office Visit 06/28/2016 [facility] Kady Bonno, F44.5 Conversion 10:55a Clinic MD disorder with seizures or convulsions G43.909 Migraine, unsp, not intractable, without status migrainosus Office Visit 05/10/2016 [facility] PearceBryant G43.009 Migraine w/o aura, 10:45a Neurologic Pablo Yadav not intractable, [facility] w/o status migrainosus G40.209 Local-rel symptc epi w cmplx prt seiz,not ntrct,w/o stat epi Office Visit 05/03/2016 1:40p [facility] Internal Jeremiah Zendejas, M79.632 Pain in left Medicine - [place] T[employer]ET DISP[employer]ER CHANGER forearm Rd S50.12xA Contusion of left forearm, initial encounter Office Visit 03/26/2016 3:00p [facility] Internal Jeremiah Zendejas, H81.319 Aural vertigo, Medicine - TICKET DISPENSER CHANGER unspecified ear [address] J02.9 Acute pharyngitis, unspecified Office Visit 02/22/2016 [facility] Internal Jeremiah Zendejas, F33.9 Major depressive 1:00p Medicine - TICKET DISPENSER CHANGER disorder, recurrent, [address] unspecified Office Visit 01/24/2016 [facility] Internal Jeremiah Zendejas, G40.909 Epilepsy, unsp , not 3:40p Medicine - TICKET DISP[employer]ER CHANGER intractable, without [address] status epilepticus Office Visit 01/01/2016 [facility] Internal Jeremiah Zendejas, A09 Infectious 3:00p Medicine - TICKET DISPENSER CHANGER gastroenteritis and [address] colitis, unspecified R11.2 Nausea with vomiting, unspecified Office Visit 12/20/2015 2:40p [facility] Internal Jeremiah Zendejas, Z01.419 Encntr for rn obgyn Medicine - [place] TICKET DISPENSER CHANGER exam (general) Rd (routine) w/o abn findings [...] Otalgia, unspecified ear Office Visit 12/18/2015 1:00p [facility] Internal Jeremiah Bruneian, G40.909 Epilepsy , unsp, Medicine - TICKET DISPENSER CHANGER not intractable, [address] without status epilepticus R05 Cough Office Visit 11/14/2015 3:00p [facility]ady Baker, G40.909 Epilepsy, unsp, [facility] MD not intractable, without status epilepticus F41.9 Anxiety disorder, unspecified Office Visit 10/30/2015 3:30p [facility] Internal Jeremiah Zendejas, J01.90 Acute sinusitis, Medicine - TICKET DISPENSER CHANGER unspecified [address] H66.92 Otitis media, unspecified, left ear Office Visit 10/11/2015 10:00a [facility] Internal Jeremiah Zendejas, J02.9 Acute pharyngitis, Medicine - TICKET DISPENSER CHANGER unspecified [address] 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 Office Visit 09/13/2015 4:00p [facility] Internal Jeremiah Bruneian, K59.1 Functional Medicine - [place] TICKET DISPENSER CHANGER diarrhea Rd G40.909 Epilepsy, unsp, not intractable, without status epilepticus Office Visit 08/14/2015 11:30a [facility] Internal Jeremiah Bruneian, N92.6 Irregular Medicine - TICKET DISPENSER CHANGER menstruation, [address] unspecified R35.0 Frequency of micturition Office Visit 06/22/2015 2:30p [facility] Internal Jeremiah Bruneian, 522.0 Pulpitis Medicine - TICKET DISPENSER CHANGER [address] Office Visit 06/13/2015 3:00p [facility] Internal Jeremiah Bruneian, 345.90 Epilepsy Unspec Medicine - TICKET DISPENSER CHANGER W/O Intractable [address] 300.02 Anxiety Disorder Generalized 780.39 Convulsions Other 300.00 Anxiety State Unspec Office Visit 05/16/2015 10:30a [facility] Internal Jeremiah Bruneian, 462 Pharyngitis Acute Medicine - TICKET DISPENSER CHANGER [address] Office Visit 05/09/2015 11:00a [facility] Internal Jeremiah Bruneian, 380.13 Ear Infection Medicine - TICKET DISPENSER CHANGER External Acute [address] Other 462 Pharyngitis Acute 461.1 Sinusitis Acute Frontal 786.2 Cough 784.0 Headache 380.10 Otitis Externa Infective Unspec Office Visit 03/17/2015 11:00a [facility] Internal Jeremiah Bruneian, 780.4 Dizziness & Medicine - [place] TICKET DISPENSER CHANG[address] 300.11 Conversion Disorder Office Visit 03/06/2015 2:00p [facility] Internal Jeremiah Bruneian, 381.4 Otitis Media Acute Medicine - TICKET DISPENSER CHANGER Or Chronic [address] Nonsuppurative 461.1 Sinusitis Acute Frontal 784.0 Headache 780.4 Dizziness & Giddiness Office Visit 03/02/2015 [place] 345.90 Epilepsy Unspec 1:45p [facility] Yadav W/O Intractable [employer] 300.11 Conversion Disorder Office Visit 02/14/2015 11:30a [facility] Internal Jeremiah Zendejas, 780.4 Dizziness & Medicine - [place] TICKET DISPENSER CHANG[address] Office Visit 02/02/2015 3:00p [facility] Internal Jeremiah Zendejas, 698.9 Pruritic Disorder Medicine - [place] TICKET DISPENSER CHANGER Unspec Rd 702.8 Dermatoses Other Spec Office Visit 01/16/2015 2:30p [facility] Internal Jeremiah Zendejas, 698.8 Pruritic Medicine - [place] TICKET DISPENSER CHANGER Conditions Spec Rd Other 300.02 Anxiety Disorder Generalized 698.9 Pruritic Disorder Unspec Office Visit 01/13/2015 1:30p [facility] Internal Jeremiah Zendejas, 698.8 Pruritic Medicine - [place] TICKET DISPENSER CHANGER Conditions [address] Rd Other 493.10 Asthma Intrinsic Unspecified 698.9 Pruritic Disorder Unspec Office Visit 12/15/2014 [place] Blanco 345.90 Epilepsy Unspec 2:30p [facility] Yadav W/O Intractable [employer] Office Visit 12/07/2014 [facility] Internal Medicine Jeremiah Zendejas, 345.90 Epilepsy Unspec 2:00p - [place] TICKET DISPENSER CHANGER W/O Intractable 293.83 Mood Disorder In Conditions Classified Elsewhere 372.00 Conjunctivitis Acute Unspec 268.9 Vitamin D Deficiency Unspec V77.1 Screening Diabetes Mellitus 296.90 Episodic Mood Disorder NOS Office Visit 10/11/2014 1:30p [facility] Internal Medicine - Jeremiah Zendejas, TICKET DISPENSER CHANGER 133.0 Scabies [place] 698.8 Pruritic Conditions Spec Other 690.18 Seborrheic Dermatitis Other Office Visit 09/26/2014 11:30a [facility] Internal Jeremiah Zendejas, 461.9 Sinusitis Acute Medicine - TICKET DISPENSER CHANGER Unspec [place] 786.2 Cough 311 Depressive Disorder Not Elsewhere Spec Office Visit 08/30/2014 1:30p [facility] Internal Jeremiah Zendejas, 311 Depressive Medicine - TICKET DISPENSER CHANGER Disorder Not [place] Elsewhere Spec 786.2 Cough Office Visit 08/22/2014 11:30a [facility] Internal Jeremiah Zendejas, 466.0 Bronchitis Acute Medicine - TICKET DISPENSER CHANGER [place] 311 Depressive Disorder Not Elsewhere Spec 280.9 Iron Deficiency Anemia Unspec Office Visit 08/18/2014 [place]/Scooter Blanco 345.90 Epilepsy Unspec 9:30a [facility] Pablo Yadav W/O Intractable [facility] Office Visit 08/09/2014 [facility] Internal Medicine [place] 780.79 Malaise And 10:00a - Sonya Lorenzo M.D. Fatigue Other 300.02 Anxiety Disorder Generalized 345.90 Epilepsy Unspec W/O Intractable 278.00 Obesity Unspec V17.49 Family HX Of Other Cardiovascular Diseases 268.9 Vitamin D Deficiency Unspec 493.10 Asthma Intrinsic Unspecified Office Visit 06/16/2013 3:30p [place] Aleks [place] 345.90 Epilepsy Unspec Services Of [facility] Pablo Yadav W/O Intractable 300.02 Anxiety Disorder Generalized Office Visit 02/25/2013 11:50a [facility] Internal Yudi 345.91 Epilepsy Unspec W/ Medicine Alan Carlin M.D. Intractable [place] 493.90 Asthma Unspec W/O Status Asthmaticus 300.00 Anxiety State Unspec Office Visit 02/17/2013 11:15a [facility] [place] Blanco 345.90 Epilepsy Unspec Services [facility] Pablo Yadav W/O Intractable Office Visit 02/11/2013 1:00p [facility] Internal Dinorah Lorenzo 345.91 Epilepsy Unspec Elizabeth Phillips M.D. W/ Intractable [place] Office Visit 11/18/2012 9:30a [facility] Fidel Muhammad 786.50 Pain Chest Unspec Of [facility] Pablo Goodwin, FACC, FASNC 785.1 Palpitations Office Visit 11/17/2012 [place] 345.40 Local-Related 9:30a Neurologic Pablo Yadav Epilepsy W/O [facility] Mention Of Intractable Epilepsy 346.10 Migraine Common W/O Intractable W/O Status Migrainosus Office Visit 10/27/2012 11:00a [facility] Internal [place] 780.4 Dizziness & Medicine Alan Vizcarra M.D. [place] Office Visit 09/28/2012 11:20a [facility] Internal [place] 493.90 Asthma Unspec W/ O Elizabeth Vizcarra M.D. Status [place] Asthmaticus 466.0 Bronchitis Acute Office Visit 09/07/2012 [facility] Internal [place] 346.92 Migraine 2:40p Medicine Alan Zavaletara, M.D. Unspecified, W/Out [place] Mention Intractable Migraine Office Visit 09/01/2012 [place] PearceBryant 345.91 Epilepsy Unspec W/ 11:00a Neurologic Pablo Yadav Intractable [facility] Office Visit 08/31/2012 [facility] Internal [place] 427.89 Cardiac 11:40a Elizabeth Vizcarra M.D. Dysrhythmia Other [place] 346.92 Migraine Unspecified, W/Out Mention Intractable Migraine Office Visit 08/20/2012 12:10p [facility] Internal [place]udi Raegan, 300.00 Anxiety State Elizabeth Phillips M.D. Unspec [place] 493.90 Asthma Unspec W/O Status Asthmaticus 401.9 Hypertension Unspec V06.1 Dhecmmoslw-Gvgnkay-Hlgahuro Combined (DTaP) Office 07/20/2012 [facility] Internal Yudi V04.81 Need For Prophylactic Visit 11:50a Elizabeth Carlin M.D. Vaccination & [place] Inoculation/Influenza 345.90 Epilepsy Unspec W/O Intractable 300.00 Anxiety State Unspec 493.90 Asthma Unspec W/O Status Asthmaticus 401.9 Hypertension Unspec Plan of Treatment Future Appointment(s):01/12/2019 2:00 pm - Darion Mena NP at [facility]12/09/2018 2:40 pm - MOSHE Doherty at [facility] Internal Medicine - [address]12/08/2018 - Darion Mena NPG43.009 Migraine without aura, not intractable, without status migraFollow up:1-2 M with Darion Burrecommendations:Discontinue Doxepin due to , May continue Lamictal to reduce risk of seizures. Obtain note from PCP for possible lipoma surgery. You may take Tylenol for headaches at this time.G40.909 Epilepsy, unspecified, not intractable, without status epile
--- NOTE | 2018-12-29 15:20 | UC ---
Abdominal Pain Female HPI - HPI Summary HPI Summary: mild abdominal pain, diarrhea last several days, without fever or vomiting. No brbpr, or melena, Hx. of pain in the right upper incisor , hx. of poor dentition , appointment with dentist in next 10 days to 2 weeks - History of Current Complaint Chief Complaint: UCGeneralIllness Stated Complaint: DENTAL, DISCOLORED STOOL Time Seen by Provider: 12/29/18 15:10 Hx Obtained From: Patient Hx Last Menstrual Period: 12/19/18 ?: No Onset/Duration: Gradual Onset, Lasting Weeks Severity Initially: Moderate Severity Currently: Moderate Pain Intensity: 9 Location: Diffuse Radiates: No Character: Dull Aggravating Factor(s): Food Associated Signs and Symptoms: Positive: Diarrhea Allergies/Adverse Reactions: Allergies Allergy/AdvReac Type Severity Reaction Status Date / Time amoxicillin [From Augmentin] Allergy Hives Verified 12/29/18 14:52 blueberry Allergy Hives/Diff. Verified 12/29/18 14:52 Breathing/I tching clavulanic acid Allergy Hives Verified 12/29/18 14:52 [From Augmentin] clindamycin Allergy Hives Verified 12/29/18 14:52 coconut Allergy Hives/Diff. Verified 12/29/18 14:52 Breathing/I tching codeine Allergy Altered Verified 12/29/18 14:52 Mental Status formoterol [From Dulera] Allergy Hives Verified 12/29/18 14:52 iohexol [From Omnipaque] Allergy Hives Verified 12/29/18 14:52 latex Allergy Hives Verified 12/29/18 14:52 lemon oil Allergy Vomiting Verified 12/29/18 14:52 metronidazole Allergy Hives Verified 12/29/18 14:52 morphine Allergy See Comment Verified 12/29/18 14:52 paroxetine [From Paxil] Allergy Swelling Verified 12/29/18 14:52 Penicillins Allergy Shortness Verified 12/29/18 14:52 of Breath sertraline [From Zoloft] Allergy Hives Verified 12/29/18 14:52 watermelon Allergy Hives/Diff. Verified 12/29/18 14:52 Breathing/I tching zonisamide Allergy Hives Verified 12/29/18 14:52 pickle Allergy Hives/Diff. Uncoded 12/29/18 14:52 Breathing/I tching PSEUDOEPHEDRINE Allergy Unknown Uncoded 12/29/18 14:52 Reaction Details Home Medications: Home Medications Doxepin HCl 100 mg PO DAILY 12/29/18 [History Confirmed 12/29/18] GuaiFENesin DM sugar free* [Robitussin DM sugar free*] 10 ml PO QPM PRN [History Confirmed 12/29/18] Ibuprofen TAB* [Motrin TAB* 600 MG] 800 mg PO Q6H PRN 12/29/18 [History Confirmed 12/29/18] PMH/Surg Hx/FS Hx/Imm Hx - Additional Past Medical History Additional PMH: hx. of developmental delay in the past Previously Healthy: No Neurological History: Seizures, Other - developmental delay Psychological History: Anxiety, Depression Other History Of: Negative For: HIV, Hepatitis B, Hepatitis C - Surgical History Surgical History: Yes Surgery Procedure, Year, and Place: Scalp Cystectomy May 2014, Abdominal Lipoma May 2014 - Family History Known Family History: Positive: Cardiac Disease, Diabetes Negative: Renal Disease, Seizure Disorder - Social History Alcohol Use: None Substance Use Type: Prescribed Smoking Status (MU): Former Smoker Type: Cigarettes Have You Smoked in the Last Year: No - Immunization History Most Recent Influenza Vaccination: Fall 2014 Most Recent Tetanus Shot: 2014 Most Recent Pneumonia Vaccination: unknown Review of Systems All Other Systems Reviewed And Are Negative: Yes Constitutional: Positive: Negative ENT: Positive: Other - dental pain Gastrointestinal: Positive: Diarrhea Motor: Positive: Negative Neurovascular: Positive: Negative Musculoskeletal: Positive: Negative Psychological: Positive: Negative Is Patient Immunocompromised?: No Physical Exam Triage Information Reviewed: Yes Appearance: No Pain Distress, Obese Vital Signs: Initial Vital Signs Temp 37.2 C 12/29/18 14:44 Pulse 97 12/29/18 14:44 Resp 18 12/29/18 14:44 BP 140/82 12/29/18 14:44 Pulse Ox 98 12/29/18 14:44 Vital Signs Reviewed: Yes Eye Exam: Normal Eyes: Positive: Conjunctiva Clear ENT Exam: Normal ENT: Positive: Other - multiple carious teeth, with no significant swelling Neck exam: Normal Neck: Positive: Supple Respiratory: Positive: Chest non-tender Cardiovascular Exam: Normal Abdominal Exam: Other - minimal tenderness noted, large lipoma Bowel Sounds: Positive: Present Neurological Exam: Normal Psychological Exam: Normal Skin Exam: Normal Abd Pain Female Course/Dx - Differential Dx/Diagnosis Provider Diagnosis: Dental caries, Diarrhea Discharge - Sign-Out/Discharge Documenting (check all that apply): Patient Departure All imaging exams completed and their final reports reviewed: No Studies - Discharge Plan Condition: Fair Disposition: HOME Patient Education Materials: Dry Mouth (ED), Toothache (ED), Acute Diarrhea (ED ) Referrals: Jose Bell NP [Primary Care Provider] - - Billing Disposition and Condition Condition: FAIR Disposition: Home
[2018-12-29 16:01] VITALS: BP 148/90
== END 2018-12-29 16:15 | disposition home or self-care (01) ==
LOC: UCEAST 14:40
DX: K02.9 Dental caries, unspecified (principal); R19.7 Diarrhea, unspecified; Z88.1 Allergy status to other antibiotic agents; Z91.041 Radiographic dye allergy status; Z88.5 Allergy status to narcotic agent; Z88.0 Allergy status to penicillin; Z88.8 Allergy status to other drugs, medicaments and biological substances; Z91.018 Allergy to other foods; Z87.891 Personal history of nicotine dependence
CPT/HCPCS: 83630; 99212; G0463

== ENCOUNTER 2019-01-04 11:33 | Emergency (ER) | payer OTHER ==
[2019-01-04 11:46] VITALS: BP 127/65
--- NOTE | 2019-01-04 12:17 | UC ---
UC General HPI - HPI Summary HPI Summary: 38-year-old woman comes in with a chief complaint of feeling like she's not here. Started last night then it got better and then she has again now. She did have a sharp shooting pain in the left side of her head last night once. She tells me that she has a history of migraines. She has had headaches now. No upper respiratory tract infection symptoms. No ear pain no runny nose no cough no shortness of breath no chest pain denies any palpitations. Denies any weakness or numbness. She does have a ball in her abdomen that hurts. Has been going on for a long time. Normal urine and normal bowels. She does have a history of hypothyroidism and also seizures and she is on lamotrigine. She has been on Mucinex for the last 4 days twice a day for cough. She wonders if the Mucinex is causing the symptoms. The cough has improved. She also reports that she plays games on her phone a lot and wonders if that causes the issue. She also says she is awfully stressed and she wonders if that's the issue. - History of Current Complaint Chief Complaint: UCAbdominalPain Stated Complaint: NAUSEA FUNNY FEELING IN HEAD Time Seen by Provider: 01/04/19 11:42 Hx Last Menstrual Period: Pain Intensity: 9 - Allergy/Home Medications Allergies/Adverse Reactions: Allergies Allergy/AdvReac Type Severity Reaction Status Date / Time amoxicillin [From Augmentin] Allergy Hives Verified 01/04/19 11:46 blueberry Allergy Hives/Diff. Verified 01/04/19 11:46 Breathing/I tching clavulanic acid Allergy Hives Verified 01/04/19 11:46 [From Augmentin] clindamycin Allergy Hives Verified 01/04/19 11:46 coconut Allergy Hives/Diff. Verified 01/04/19 11:46 Breathing/I tching codeine Allergy Altered Verified 01/04/19 11:46 Mental Status formoterol [From Dulera] Allergy Hives Verified 01/04/19 11:46 iohexol [From Omnipaque] Allergy Hives Verified 01/04/19 11:46 latex Allergy Hives Verified 01/04/19 11:46 lemon oil Allergy Vomiting Verified 01/04/19 11:46 metronidazole Allergy Hives Verified 01/04/19 11:46 morphine Allergy See Comment Verified 01/04/19 11:46 paroxetine [From Paxil] Allergy Swelling Verified 01/04/19 11:46 Penicillins Allergy Shortness Verified 01/04/19 11:46 of Breath sertraline [From Zoloft] Allergy Hives Verified 01/04/19 11:46 watermelon Allergy Hives/Diff. Verified 01/04/19 11:46 Breathing/I tching zonisamide Allergy Hives Verified 01/04/19 11:46 pickle Allergy Hives/Diff. Uncoded 01/04/19 11:46 Breathing/I tching PSEUDOEPHEDRINE Allergy Unknown Uncoded 01/04/19 11:46 Reaction Details PMH/Surg Hx/FS Hx/Imm Hx Previously Healthy: Yes Endocrine History: Hypothyroidism GI/ History: Gastroesophageal Reflux Neurological History: Seizures, Migraine Other History Of: Negative For: HIV, Hepatitis B, Hepatitis C - Surgical History Surgical History: Yes Surgery Procedure, Year, and Place: Scalp Cystectomy May 2014, Abdominal Lipoma May 2014 - Family History Known Family History: Positive: Cardiac Disease, Diabetes Negative: Renal Disease, Seizure Disorder - Social History Alcohol Use: None Substance Use Type: None Smoking Status (MU): Former Smoker Type: Cigarettes Have You Smoked in the Last Year: No - Immunization History Most Recent Influenza Vaccination: Fall 2014 Most Recent Tetanus Shot: 2014 Most Recent Pneumonia Vaccination: unknown Review of Systems All Other Systems Reviewed And Are Negative: Yes Constitutional: Positive: Negative Skin: Positive: Negative Eyes: Positive: Negative ENT: Positive: Negative Respiratory: Positive: Negative Cardiovascular: Positive: Negative Gastrointestinal: Positive: Abdominal Pain Genitourinary: Positive: Negative Motor: Positive: Negative Neurovascular: Positive: Negative Musculoskeletal: Positive: Negative Neurological: Positive: Other - see hpi Psychological: Positive: Negative Is Patient Immunocompromised?: No Physical Exam Triage Information Reviewed: Yes Appearance: Well-Appearing, No Pain Distress, Well-Nourished Vital Signs: Initial Vital Signs Temp 98.3 F 01/04/19 11:41 Pulse 91 01/04/19 11:41 Resp 18 01/04/19 11:41 BP 127/65 01/04/19 11:41 Pulse Ox 98 01/04/19 11:41 Vital Signs Reviewed: Yes Eye Exam: Normal Eyes: Positive: Conjunctiva Clear ENT: Positive: Normal ENT inspection, Pharynx normal, TMs normal Neck exam: Normal Neck: Positive: Supple Respiratory: Positive: Lungs clear, Normal breath sounds, No respiratory distress Cardiovascular: Positive: RRR Abdomen Description: Positive: Other: - Patient has an epigastric patient has an epigastric mass that is consistent with a hernia. It's mildly tender to palpation. Rest of the abdomen is soft and nontender. Patient reports this is always tender to palpation. Bowel Sounds: Positive: Present Musculoskeletal Exam: Normal Musculoskeletal: Positive: Strength Intact, ROM Intact Neurological Exam: Normal Neurological: Positive: Alert, Muscle Tone Normal Psychological Exam: Normal Psychological: Positive: Normal Response To Family, Age Appropriate Behavior Skin Exam: Normal Course/Dx - Course Course Of Treatment: It is difficult to determine the cause of the patient's symptoms. She is in no acute distress in clinic. She is not obviously confused. She has no headaches no chest pain EKG is normal. The abdominal masses been there for years and there is no new change. Vital signs are stable. The overall plan is to have the patient follow-up with her primary care doctor. We are checking a CBC CMP TSH and Lamictal level. Patient has an appointment with his neurologist on January 12, 2019. Patient will plan to follow up with his primary care doctor and his neurologist he is to return here or to the emergency department if worse or any questions or concerns. - Diagnoses Provider Diagnosis: Confusion Discharge - Sign-Out/Discharge Documenting (check all that apply): Patient Departure All imaging exams completed and their final reports reviewed: No Studies - Discharge Plan Condition: Stable Disposition: HOME Referrals: Jose Bell NP [Primary Care Provider] - Additional Instructions: FOLLOW UP WITH YOUR DOCTOR. GET RECHECKED FOR ANY WORSENING OF YOUR CONDITION OR QUESTIONS OR CONCERNS. - Billing Disposition and Condition Condition: STABLE Disposition: Home
[2019-01-04 16:15] LABS: ABS Basophils 0.1 10^3/ul (0-0.2); ABS Eosinophils 0.1 10^3/ul (0-0.6); ABS Lymphocytes 1.9 10^3/ul (1.0-4.8); ABS Monocytes 0.4 10^3/ul (0-0.8); ABS Neutrophils 4.5 10^3/ul (1.5-7.7); ABS Nucleated RBC 0 10^3/ul; Eosinophil % 1.7 %; Hematocrit 41 % (35-47); Hemoglobin 13.7 g/dl (12.0-16.0); Lymphocyte % 26.9 %; Mean Corpuscular HGB Conc 34 g/dl (31-36); Mean Corpuscular Hemoglobin 33 pg (27-31); Mean Corpuscular Volume 98 fL (80-97); Mean Platelet Volume 8.2 fL (7.4-10.4); Nucleated Red Blood Cells % 0; Platelet Count 330 10^3/ul (150-450); Red Blood Count 4.16 10^6/ul (4.00-5.40); Red Cell Distribution Width 14 % (10.5-15); White Blood Count 6.9 10^3/ul (3.5-10.8)
[2019-01-04 16:19] LABS: Albumin 4.6 g/dL (3.2-5.2); Calcium 9.8 mg/dL (8.6-10.3); Potassium 4.1 mmol/L (3.5-5.0); Total Bilirubin 0.6 mg/dL (0.2-1.0)
[2019-01-04 16:25] LABS: Albumin/Globulin Ratio 1.8 (1-3); BUN/Creatinine Ratio 12.5 (8-20); EGFR African American 110.3 (>60); EGFR Non-African American 91.1 (>60); Globulin 2.6 g/dL (2-4); Total Protein 7.2 g/dL (6.4-8.9)
[2019-01-04 16:39] LABS: TSH (Thyroid Stimulating Horm) 2.58 mcIU/mL (0.34-5.60)
== END 2019-01-04 12:47 | disposition home or self-care (01) ==
LOC: UCEAST 11:33
DX: R41.0 Disorientation, unspecified (principal); R51 Headache; R05 Cough; R11.0 Nausea; Z88.0 Allergy status to penicillin; Z88.1 Allergy status to other antibiotic agents; Z91.018 Allergy to other foods; Z88.5 Allergy status to narcotic agent; Z91.09 Other allergy status, other than to drugs and biological substances; Z87.891 Personal history of nicotine dependence
CPT/HCPCS: 36415; 80053; 80175; 81003; 84443; 85025; 87086; 99211; G0463

== ENCOUNTER 2019-01-17 12:27 | Emergency (ER) | payer OTHER ==
--- OUTSIDE RECORDS SUMMARY | 2019-01-17 12:39 | XMS REPORT | Continuity of Care Document ---
:1980 External Reference #:[id number] Author Name Wendy Murphy Care Team Providers Name Role Phone Donna Peguero M.D. Primary Care Physician Unavailable Payers Date Identification Numbers Payment Provider Subscriber Effective: Policy Number: [id number] [place] Dean Peng 2012 Medicaid PayID: [id number] [address] [address] [place] [address] Advance Directives Type Date Description Status Comment [...] Resolved: 02/27/2015 Family History Date Family Member(s) Observation Comments First Sister 21 First Sister other sister had thyroid removed. Social History Type Date Description Comments Sex Unknown Marital Status Lives With Boyfriend Occupation Disabled ETOH Use 01/21/2018 Denies alcohol use Tobacco Use Start: Unknown End: Unknown Patient is a former smoker Recreational Drug Use Denies Drug Use Smoking Status Reviewed: 01/15/19 Patient is a former smoker Allergies, Adverse Reactions, Alerts Date Description Reaction Status Severity Comments 07/20/2012 Latex Contact dermatitis Active 07/20/2012 Sudafed High BP Active 02/25/2013 Lemon Anaphylaxis Active 09/29/2014 Augmentin diarrhea Active 03/06/2015 Paroxetine Active pt unaware of reaction 03/06/2015 Pseudoephedrine Active unaware of reaction 03/06/2015 Zoloft Active unaware of reaction 03/17/2015 Darlyn confusion Active Severe 06/13/2015 Dye, contrast swelling in hands, Active Severe cant breath 05/03/2016 Penicillin lessons ability to Active Moderate walk per pt 06/18/2017 Metronidazole nausea, vomiting, Active Moderate tachycardia 06/18/2017 Zonisamide Urticaria Active 01/02/2018 Peanut-containing Drug Active Products 04/22/2018 Tylenol Active face swells 11/17/2018 Codeine Active 11/17/2018 Amoxicillin Active 12/08/2018 Morphine lost use of legs Active and amnesia 01/15/2019 Mucinex Active 05/09/2015 Dye, Contrast arm swelled and Inactive Moderate "out of it" Medications Medication Date Status Form Strength Qnty SIG Indications Ordering Provider Lamotrigine 01/15 Active Tablets 200mg 120ta Take 2 tabs Clinton S. /2019 bs PO in the Leif, morning and M.D. take 2 tabs at bedtime Trueplus 12/31 Active Misc 30G 100un use to test Zsofia Lancets 30G its Ray, Ultra Thin TERADATA DEVELOPER Doxepin HCL 12/10 Active Capsules 10mg 120ca 4 capsules G43.909 Clinton S. ps every night Leif, at bedtime M.D. Neomycin/Polymy 11/17 Active Solution [id number] 10ml 2 drops in H60.93 Donna flora/Hydrocortis /2018 -1 affected ear Peguero, one (Otic) twice a day MD for 5 days as needed Fluticasone 10/21 Active Suspension 50mcg/Act 16uni use 2 sprays J01.90 Zsofia Propionate ts in each Ray, nostril one TERADATA DEVELOPER time a day Robitussin 12 10/21 Active Suer 30mg/5ML 89ml 5 R05 Hour Cough milliliters Peguero, Relief by mouth MD twice a day as needed Nasal [place] 10/21 Active Solution 0.05% 30ml 2 sprays J01.90 Zsofia Hour each nostril Ray, 2x daily as TERADATA DEVELOPER needed for congestion Benzonatate 08/19 Active Capsules 100mg 30cap take 1 tab R05 s by mouth Ray, three times TERADATA DEVELOPER a day as needed for cough True Focus Self 08/17 Active Strips 100un test blood Tawny its twice daily MD Vgea Blood Glucose Test Strips True Metrix Go 08/17 Active Kit w/Device 1unit use daily as Zsofia Blood Glucose s directed Ray, Antoni last visit: TERADATA DEVELOPER 08/19/18 Ventolin HFA 07/15 Active Aerosol 108(90Bas 8gm 2 puffs by J45.30 ofi e) mouth four Ray, mcg/Act times a day TERADATA DEVELOPER as needed Guards 05/08 Active Misc 1unit use mouth K13.79 s guard at Ray, night TERADATA DEVELOPER Vitamin C 05/08 Active Tablets 500mg 60tab take one D50.9 s tablet by Sudhir mouth twice MD a day Citalopram 03/12 Active Tablets 40mg 30tab take one Donna Hydrobromide /2017 s tablet by Peguero, mouth every MD day Meclizine HCL 03/10 Active Tablets 25mg 90tab take 1/2-1 H81.399 Zsofia s tablet by Ray, mouth three TERADATA DEVELOPER times a day as needed Calcium 02/18 Active Tablets 600-400mg 180ta take one J00 Donna Carbonate-Vitam /2017 -Unit bs tablet by Sudhir, in D mouth twice MD a day with food Ibuprofen 06/24 Active Tablets 800mg 90tab take one Zsofia s tablet three Ray, times daily TERADATA DEVELOPER as needed. Omeprazole 09/[address] 20mg 30cap take one K21.9 Donna s capsule by Sudhir, mouth every MD day KP Cetirizine 03/31 Active Tablets 10mg 30tab 1 by mouth Zsofia HCL /2014 s every day Ray, TERADATA DEVELOPER Ferrous 08/12 Active Tablets 324(38Fe) 180ta take one D50.9 Donna Gluconate /2014 mg bs tablet by Peguero, mouth twice MD daily Albuterol 11/02 Active Nebulizer (2.5mg/3M 100un inhale the [facility] /2011 L) 0.083% its contents of Ebony Bonner, one vial via M.D.,FACP nebulizer every 4 to 6 hours as needed Levothyroxine Active Tablets 75mcg 90tab 1 by mouth E03.9 Donna Sodium /0000 s every day MD Sudhir Mucinex DM 12/31 Hx Tablets ER 30-600mg 60tab 1 by mouth Zsofi 12HR s twice a day Ray, - TERADATA DEVELOPER 01/14 Freestyle 12/09 Hx Misc 100un 2 times Zsofia Lanc its daily and as Ray, - needed TERADATA DEVELOPER 12/30 Doxycycline 10/22 Hx Capsules 100mg 20cap take 1 tab Zsofia Monohydrate /2017 s po bid for Ray, - 10 days TERADATA DEVELOPER 11/17 Cefuroxime 10/21 Hx Tablets 250mg 14tab 1 tab by H66.92 Zsofia Axetil s mouth twice Ray, - a day for 7 TERADATA DEVELOPER J01.90 Doxycycline 08/19/2018 - Hx Tablets 100mg 14tabs 1 tab by J01.90 Zsofia Monohydrate 11/17/2018 mouth twice Ray, TERADATA DEVELOPER a day for 7 days Breo Ellipta 08/11/2018 - Hx Aerosol 100-25m 30units inhale 1 Comfort 11/17/2018 cg/Inh puff by Pablo Oliver mouth once daily Advair Diskus 07/21/2018 - Hx Aerosol 100-50m 60units inhale 1 Tanvir 08/11/2018 cg/Dose dose by Zackery, mouth twice M.D. a day Flovent HFA 07/15/2018 - Hx Aerosol 44mcg/A 10.600g 2 act twice J45.30 Zsofia 07/21/2018 ct m a day daily Ray, TERADATA DEVELOPER for 2 week rinse after use Cephalexin 07/15/2018 - Hx Capsules 500mg 30caps take 1 tab L03.116 Zsofia 07/15/2018 three times Ray, TERADATA DEVELOPER a day for 10 days Sulfamethoxazole 07/15/2018 - Hx Tablets 800-160 14tabs 1 tab po L03.116 Zsofia /Trimethoprim DS 08/19/2018 mg bid x 7 Ray, TERADATA DEVELOPER days Prednisone 01/21/2018 - Hx Tablets 10mg 20tabs 4 tabs Baldev Beck 01/29/2018 every day [place], for 2 days, M.D.,FACP then reduce by 1 tab every 2 days until finished Arnuity Ellipta 01/21/2018 - Hx Aerosol 100mcg/ 30units 1 puff Malu Beck 11/17/2018 Act inhaled [place], every day M.D.,FACP Calcium 10/20/2017 - Hx Tablets 600-400 180tabs take one Tanvir Carbonate-Vitami 01/01/2018 mg-Unit tablet by maricel Vizcarra mouth twice M.D. a day with food Doxepin HCL 09/12/2017 - Hx Capsules 10mg 120caps 4 capsules G43.909 Christopher 12/08/2018 every night Pablo Jurado at bedtime Doxycycline 07/23/2017 - Hx Tablets 100mg 20tabs 1 by mouth Other Hyclate 08/02/2017 twice a day Ordering x 10 days Provider Acetaminophen-Co 07/23/2017 - Hx Tablets 300-30m 10tabs 1 tab by Unknown deine #3 09/11/2017 g mouth q 6 hrs day as needed pain Zonisamide 07/18/2017 - Hx Capsules 100mg 60caps 2 tabs po G43.909 Clinton S. 01/01/2018 qhs Pablo Yadav Doxycycline 06/18/2017 - Hx Capsules 100mg 14caps 1 cab twice R30.0 Tanvir Hyclate 07/17/2017 a day Palbo Vizcarra Nitrofurantoin 06/10/2017 - Hx Capsules 100mg 14caps take one Other Macrocrystal 06/17/2017 capsule Ordering twice daily Provider for 7 days. Zonisamide 04/18/2017 - Hx Capsules 25mg 120caps 1 po qhs G43.909 Clinton S. 06/18/2017 for 1 wk Leif, then 2 qhs M.DBryant for 1 wk then 3 qhs for 1 wk then 4 qhs Azithromycin 04/08/2017 - Hx Tablets 250mg 6tabs 2 tab today J06.9 Tanvir 04/10/2017 and then Zackery, 1tab daily M.DBryant Meclizine HCL 04/08/2017 - Hx Tablets 12.5mg 60tabs 1-2 tab two H81.393 Tanvir 07/15/2018 times a day Pablo Vizcarra Levothyroxine 04/08/2017 - Hx Tablets 25mcg 45tabs take one E03.9 Tanvir Sodium 01/21/2018 tablet by Zackery, mouth every [...] one by Baldev Beck 07/15/2018 mouth every [place], 8 hours as M.D.,FACP needed for nausea Clindamycin HCL 03/25/2017 - Hx Capsules 300mg 40caps 1 tabs by K05.00 Tanvir 04/10/2017 mouth every Zackery, 6h MBryantD. Vicodin 03/25/2017 - Hx Tablets 5-300mg 20tabs 1 tab every K05.00 Tanvir 05/21/2017 12 hours Pablo Vizcarra Citalopram 03/17/2017 - Hx Tablets 10mg 30tabs Take One [place] Hydrobromide 03/12/2018 Tablet By Zackery, Mouth Every M.D. Day Along With 20 MG Tablet To Equal Total Daily Dose Of 30 MG Calcium 600+D 10/31/2016 - Hx Tablets 600-400 180tabs 1 [facility] 02/18/2018 mg-Unit mouth twice [facility], a day take M.D. w/ meal Topiramate 10/17/2016 - Hx Tablets 100mg 75tabs 1 po qam G43.909 Clinton Blanco 03/18/2017 and 1 1/2 luis manuel YadavDBryant Robitussin 12 10/10/2016 - Hx Suer 30mg/5M 118ml 1-[address] [place] [address] Hour Cough 11/17/2018 L teaspoon at [facility], Relief night as M.D. needed Naproxen 05/03/2016 - Hx Tablets 250mg 60tabs 1 tablet by M79.632 Jeremiah 05/13/2016 mouth twice British, WEB ASSISTANT a day as needed pain, with foods Prednisone 03/26/2016 - Hx Tablets 20mg 5tabs 1 tablets J02.9 Jeremiah 05/03/2016 by mouth British, WEB ASSISTANT daily x's 5 days in the morning Meclizine HCL 03/26/2016 - Hx Tablets 25mg 45tabs 1 tablet H81.319 Jeremiah 04/09/2016 tid every British, WEB ASSISTANT 6-8 hours as needed Ventolin HFA 03/13/2016 - Hx Aerosol 108(90B 1units 2 puffs by Malu Beck 11/17/2018 [facility]) mouth four [place]ham, mcg/Act times a day M.DBryant,FACP as needed Escitalopram 03/11/2016 - Hx Tablets 10mg 30tabs 1/2 tab po F33.9 Malu Beck Oxalate 03/14/2016 qd for 1 wk [place]ham, then 1 by Pablo,FACP mouth every day Venlafaxine HCL 02/22/2016 - Hx Tablets 37.5mg 22tabs 75 mg for 1 F33.9 Jeremiah 03/13/2016 week, then JANNIE Zendejas 37.5 mg for 1 week, then stop. Zofran Odt 01/01/2016 - Hx Tablets 4mg 12tabs 1 odt by R11.2 Jeremiah 01/02/2016 Dispers mouth every British, WEB ASSISTANT 6 hours as needed nausea no more than 3 daily Drisdol 12/25/2015 - Hx Capsules 01746Bh 8caps 1 tab by Jeremiah 02/22/2016 it mouth once JANNIE Zendejas a week x's 8 weeks Nystop 12/20/2015 - Hx Powder 257859B 1units apply B37.2 Jeremiah 02/22/2016 nit/GM topically JANNIE Zendejas to rash twice a day until rash resolved Cefdinir 10/30/2015 - Hx Capsules 300mg 20caps 1 capsule J01.90 Jeremiah 11/09/2015 twice a day British, WEB ASSISTANT x's 10 days Ipratropium 10/30/2015 - Hx Solution 0.03% 1units instill 2 J01.90 Jeremiah [place] 11/13/2015 sprays in JANNIE Zendejas each nostril three times a day as needed nasal congestion Penicillin V 10/12/2015 - Hx Tablets 500mg 20tabs 1 tablet by Jeremiah Potassium 10/22/2015 mouth bid JANNIE Zendejas x10 days Clindamycin HCL 10/11/2015 - Hx Capsules 300mg 30caps 1 capsule J02.9 Jeremiah 10/12/2015 by mouth JANNIE Zendejas three times a day x's 10 days Cepacol Sore 10/11/2015 - Hx Lozenges 5.4mg J02.9 Jeremiah Throat 10/16/2015 British, WEB ASSISTANT Freestyle 09/28/2015 - Hx Misc 100unit test bs Zsofia Lancets 08/16/2018 s once daily Ray, TERADATA DEVELOPER and as needed Freestyle System 09/28/2015 - Hx Kit 250.02 Jeremiah 08/16/2018 Aashish WEB ASSISTANT Freestyle Test 09/28/2015 - Hx Strips 100unit test strips Zsofia 08/16/2018 s use daily Ray, TERADATA DEVELOPER as directed Topiramate 09/10/2015 - Hx Caps 25mg 90caps take 3 by G43.909 Clinton Pearce. 10/17/2016 Sprinkle mouth at Leif, bedtime M.D. Naproxen 08/24/2015 - Hx Tablets 500mg 14tabs 1 tab by Jeremiah 11/13/2015 mouth every British, WEB ASSISTANT 12 hours. prn Benzonatate 08/22/2015 - Hx Capsules 100mg 30caps 1 tab by R05 Zsofia 07/15/2018 mouth three Ray, TERADATA DEVELOPER times a day as needed J00 [place] 07/05/2015 - Hx Tablets 7.5-325mg 6tabs 1 tab every Jeremiah 07/08/2015 6 hours up British, to twice a WEB ASSISTANT day x3 days [place] 06/22/2015 - Hx Tablets 7.5-325mg 30tabs 1 tab every 522. Jeremiah 07/05/2015 6 hours prn 0 British, pain WEB ASSISTANT Nystatin 05/26/2015 - Hx Suspension [id number]/ 225ml swish and Jeremiah 06/05/2015 ML swallow 5ml British, four times WEB ASSISTANT a day x's 10 days Clindamycin HCL 05/16/2015 - Hx Capsules 300mg 30caps 1 capsule 462 Jeremiah 05/26/2015 by mouth British, three times WEB ASSISTANT a day x's 10 days Medrol (Tj) 05/16/2015 - Hx Tablets 4mg 1tabs take as 462 Jeremiah 05/26/2015 prescribed British, WEB ASSISTANT Amoxicillin 05/09/2015 - Hx Tablets 875mg 20tabs take one 380. Jeremiah 05/19/2015 tablet by 13 British, mouth twice WEB ASSISTANT a day x's 10 days Cheratussin ac 05/09/2015 - Hx Syrup 100-10mg/5M 120ml 1-2 786. Jeremiah 05/19/2015 L teaspoon by 2 British, mouth every WEB ASSISTANT 4 to 6 hours as needed cough Amoxicillin 03/06/2015 - Hx Tablets 875mg 14tabs take one 381. Jeremiah 03/17/2015 tablet by 4 British, mouth twice WEB ASSISTANT a day x's 7 days Darlyn Allergy 03/06/2015 - Hx Tablets 180mg 30tabs 1 tab by 461. Jeremiah 03/17/2015 mouth daily 1 British, gustavo's 4-6 WEB ASSISTANT weeks Zyrtec Allergy 02/10/2015 - Hx Capsules 10mg 30caps 1 by mouth Tanvir 02/14/2015 every day Bunny mckenzie M.D. Hydroxyzine HCL 02/02/2015 - Hx Tablets 25mg 2 tab by 698. Jeremiah 02/02/2015 mouth every 8 British, 6 hours as WEB ASSISTANT needed for itching Ranitidine HCL 02/02/2015 - Hx Capsules 150mg 60caps 1 capsule 698. Jeremiah 03/06/2015 po bid 9 British, WEB ASSISTANT Darlyn Allergy 02/02/2015 - Hx Tablets 180mg 60tabs 2 tab by 698. Tanvir 02/10/2015 mouth daily 9 Bunny mckenzie M.D. Prednisone 02/02/2015 - Hx Tablets 10mg 30tabs 5 698. Jeremiah 02/12/2015 pillsx's2da 9 British, ys, WEB ASSISTANT 4pillsx's2d ays, 3pillsx's2d ays, 2pillsx's2d ays,1pillx' s2days,then stop Hydroxyzine HCL 01/26/2015 - Hx Tablets 25mg 56tabs 2 tab by 698. Jeremiha 02/02/2015 mouth every 8 British, 6 hours as WEB ASSISTANT needed for itching Triamcinolone 01/23/2015 - Hx Cream 0.1% 30G apply Jeremiah Acetonide 01/26/2015 topically British, twice a day WEB ASSISTANT to affected sites Lorazepam 01/16/2015 - Hx Tablets 0.5mg 15tabs 1 by mouth Claudia, 01/16/2015 tid as Jean Claude needed , DO Lorazepam 01/16/2015 - Hx Tablets 0.5mg 15tabs 1 by mouth British, 01/16/2015 tid as Jeremiah, needed WEB ASSISTANT Alprazolam 01/16/2015 - Hx Tablets 0.5mg 60tabs 1/2-1 tab Jeremiah 03/17/2015 by mouth British, twice a day WEB ASSISTANT as needed Hydrocortisone 01/16/2015 - Hx Cream 1% 1tube apply tid Jeremiah Plus 01/26/2015 daily until British, rash WEB ASSISTANT resolved Hydroxyzine HCL 01/13/2015 - Hx Tablets 25mg 56tabs 2 tab by 698. Jeremiah 01/16/2015 mouth every 8 British, 6 hours as WEB ASSISTANT needed for itching Ranitidine 150 01/13/2015 - Hx Tablets 150mg 30tabs 1 tablet po 698. Jeremiah Maximum Strength 02/02/2015 qd until 8 British, hives WEB ASSISTANT resolve Turshaun Pressair 01/13/2015 - Hx Aerosol 400mcg/Act 1units 1 493. Jeremiah 02/02/2015 inhalation 10 British, po qd WEB ASSISTANT Alprazolam 01/05/2015 - Hx Tablets 0.5mg 20tabs 1 PO daily Jeremiah 01/16/2015 Dispers British, WEB ASSISTANT Vitamin D 12/11/2014 - Hx Tablets 1000Unit 30tabs 1 by mouth J00 Jeremiah 10/31/2016 every day British, WEB ASSISTANT Polytrim 12/07/2014 - Hx Solution 89781-4.1Un 1units 1 drop left 372. Jeremiah 12/12/2014 it/ML-% eye every 00 British, four hours WEB ASSISTANT while awake x's 5 days Hydroxyzine HCL 10/11/2014 - Hx Tablets 25mg 56tabs 2 tab by 698. Jeremiah 01/13/2015 mouth every 8 British, 6 hours as WEB ASSISTANT needed for itching Permethrin 10/11/2014 - Hx Cream 5% 1units apply from 133. Jeremiah 12/07/2014 neck to 0 British, toes WEB ASSISTANT topically leave on 8-14 hours then bath off. repeat in 7 days. Clarithromycin 09/29/2014 - Hx Tablets 500mg 14tabs 1 tab po Jeremiah 10/06/2014 bid x's 7 British, days WEB ASSISTANT Afrin 12 Hour 09/29/2014 - Hx Solution 0.05% 1units 2-3 sprays Jeremiah 12/07/2014 both nares British, every 12 WEB ASSISTANT hours as needed rhinorhea Amoxicillin/Clavu 09/26/2014 - Hx Tablets 875-125mg 20tabs 1 tablet by 461. Jeremiah lanate Potassium 09/29/2014 mouth twice 9 British, a day x's WEB ASSISTANT 10 days Cheratussin ac 09/26/2014 - Hx Syrup 100-10mg/5M 120ml 1-2 786. Jeremiah 10/01/2014 L teaspoon by 2 British, mouth every WEB ASSISTANT 4 to 6 hours as needed cough Citalopram 08/30/2014 - Hx Tablets 20mg 30tabs Take One F33. Tanvir Hydrobromide 03/12/2018 Tablet By 9 Pachikar Mouth Every a, M.D. Day Along With 10 MG Tablet To Equal Total Daily Dose Of 30 MG Citalopram 08/22/2014 - Hx Tablets 40mg 30tabs 1 tablet po 311 Jeremiah Hydrobromide 08/30/2014 daily British, WEB ASSISTANT Prednisone 08/18/2014 - Hx Tablets 20mg 10tabs 2 by mouth Unknown 09/26/2014 every day Cheratussin ac 08/18/2014 - Hx Syrup 100-10mg/5M 236ml 1-2 tsp by Jeremiah 09/26/2014 L mouth every British, 4 to 6 WEB ASSISTANT hours as needed cough Zithromax 08/18/2014 - [...] puff 493. Jeremiah 05/09/2015 Act inhaled 90 British, twice a day WEB ASSISTANT Keppra 02/11/2013 - Hx Tablets 500mg 30tabs 1 po at 345. Clinton S. 06/16/2013 bedtime 91 Pablo Yadav Spiriva 10/27/2012 - Hx Capsules 18mcg 30caps 1 780. Tanvir Handihaler 02/25/2013 inhalation 4 Pachikar po kris mckenzie M.D. Prednisone 09/28/2012 - Hx Tablets 10mg 30tabs 5tabx 493. Tanvir 10/27/2012 2days,4 90 Pachikar [id number] Pablo mckenzie [id number], [id number], 1tabxday. Topamax 09/07/2012 - Hx Tablets 25mg 30tabs 1 tab PO hs 346. [place] 09/28/2012 92 Bunny mckenzie M.D. Lamotrigine 07/21/2012 - Hx Tablets 100mg 210tabs 3 by mouth Clinton SBryant 01/15/2019 every Leif, morning and M.D. 4 every night at bedtime Symbicort 07/20/2012 - Hx Aerosol 80-4.5mcg/A 1units 2 puff 493. Yudi 02/25/2013 ct inhaled bid 90 Pablo Carlin Sertraline HCL 07/20/2012 - Hx Tablets 50mg 90tabs Take One Yudi 06/16/2013 Tablet By Raegan Mouth One M.D. Time Daily Lamotrigine - [...] 1 by mouth Jeremiah 02/02/2015 every day British, WEB ASSISTANT Phenazopyridine - Hx Tablets 200mg 20tabs 1 [...] 18mcg 90caps 1 Jeremiah Handihaler 01/13/2015 inhalation British, by mouth WEB ASSISTANT every morning Proair HFA - Hx Aerosol 108(90Base) 1units 2 puffs by Unknown 10/11/2014 mcg/Act mouth every 4 hours as needed Vitamin D3 - Hx Capsules [id number] 8caps 1 by mouth Unknown Maximum Strength 12/11/2014 every week Lorazepam - Hx Tablets 0.5mg 15tabs 1 by mouth Unknown 10/11/2014 tid as needed Cetirizine HCL - Hx Tablets 10mg 1 by mouth Unknown 08/17/2014 every day Omeprazole - Hx Capsules DR 40mg 30caps 1 by mouth Jeremiah 02/02/2015 every day British, WEB ASSISTANT Citalopram - Hx Tablets 20mg 30tabs 1 by mouth Unknown Hydrobromide 08/22/2014 every day Oxymetazoline HCL - Hx Solution 0.05% Unknown 10/11/2014 Hydroxyzine HCL - Hx Tablets 50mg 30tabs 1 po bid if Jeremiah 11/13/2015 needed British, WEB ASSISTANT Lorazepam - Hx Tablets 1mg 1 po q 8 Unknown 06/13/2015 to 12 hours as needed Citalopram - Hx Tablets 20mg Unknown Hydrobromide 03/02/2015 Acetaminophen - Hx Tablets 500mg 240tabs 2 tablets Jeremiah 10/29/2016 every 6-8 British, hours as WEB ASSISTANT needed for pain Dulera - Hx Aerosol [...] 10/10/2016 teaspoon at l D. night as [place], needed M.D.,FAC P Ra Motion - Hx Tablets 25mg 30tabs take 11/11 Jeremiah Sickness Relief 04/08/2017 tab by British, mouth three WEB ASSISTANT times daily if needed for vertigo Nitrofurantoin [...] Code Status Date Vaccine Reaction Lot # [id number] Given 08/19/2018 Influenza Virus Vaccine, [id number] Quadrivalent, Split, Preservative Free 69554 Given 07/28/2018 Influenza Virus Vaccine, Quadrivalent, Split, Preservative Free 02317 Given 07/28/2018 Influenza Virus Vaccine, Quadrivalent, Split, Preservative Free 56056 Given 01/21/2018 Influenza Virus Vaccine, [id number] Quadrivalent, Split, Preservative Free 19509 Given 10/16/2017 Pneumonia Vaccine no reaction, pt [id number] tolerated well Q2035 Given 10/16/2015 Afluria Vaccine 15160 Given 08/20/2012 Tdap - [id number] Tetanus/Diptheria/Acellula r Pertussis Q2038 Given 07/20/2012 Fluzone Vaccine [id number] Ordered 07/04/2016 Afluria Vaccine Vital Signs Date Vital Result Comment 01/15/2019 1:15pm Height 67 inches 5'7" Weight 347.25 lb Heart Rate 86 /min BP Systolic 140 mmHg BP Diastolic 92 mmHg BMI (Body Mass Index) 54.4 kg/m2 12/08/2018 11:09am Height 67 inches 5'7" Weight [...] Date Facility Test Result H/L Range Note Urine Culture And 01/04/2019 [facility] Urine SEE RESULT 1 , [address] [address] [phone] Poc Urinalysis 01/04/2019 [facility] Poc Glucose, Negative Negative [address] [place] [address] [phone] Poc Bilirubin, Urine Negative Negative Poc Ketone, Urine Negative Negative Poc Specific [place], Urine 1.020 N 1.010-1.030 Poc Blood, Urine 1+ Abnormal Negative Poc pH, Urine 7.5 N 5-9 Poc Protein, Urine Negative Negative Poc Urobilinogen, Urine 0.2 Negative Poc Nitrite, Urine Negative Negative Poc Leukocytes, Urine 3+ Abnormal Negative Poc Color, Urine Yellow Poc Clarity, Urine Clear 3 CBC Auto Diff 01/04/2019 [facility] White Blood 6.9 10^3/uL N 3.5-10.[address] [place] [address] [phone] Red Blood Count 4.16 10^6/uL N 4.00-5.40 Hemoglobin 13.7 g/dL N 12.0-16.0 Hematocrit 41 % N 35-47 Mean Corpuscular Volume 98 fL High 80-97 Mean Corpuscular Hemoglobin 33 pg High 27-31 Mean Corpuscular HGB Conc 34 g/dL N 31-36 Red Cell Distribution Width 14 % N 10.5-15 Platelet Count 330 10^3/uL N 150-450 Mean Platelet Volume 8.2 fL N 7.4-10.4 Abs Neutrophils 4.5 10^3/uL N 1.5-7.7 Abs Lymphocytes 1.9 10^3/uL N 1.0-4.8 Abs Monocytes 0.4 10^3/uL N 0-0.8 Abs Eosinophils 0.1 10^3/uL N 0-0.6 Abs Basophils 0.1 10^3/uL N 0-0.2 Abs Nucleated RBC 0 10^3/uL Granulocyte % 64.9 % Lymphocyte % 26.9 % Monocyte % 5.5 % Eosinophil % 1.7 % Basophil % 1.0 % Nucleated Red Blood Cells % 0 Comp Metabolic Panel 01/04/2019 [facility] Sodium 137 mmol/L N 135-[address] [place] [address] [phone] Potassium 4.1 mmol/L N 3.5-5.0 Chloride 105 mmol/L N 101-111 Co2 Carbon Dioxide 27 mmol/L N 22-32 Anion Gap 5 mmol/L N 2-11 Calcium 9.8 mg/dL N 8.6-10.3 Albumin 4.6 g/dL N 3.2-5.2 Total Bilirubin 0.60 mg/dL N 0.2-1.0 Glucose 108 mg/dL High 70-100 Blood Urea Nitrogen 9 mg/dL N 6-24 Creatinine 0.72 mg/dL N 0.51-0.95 BUN/Creatinine Ratio 12.5 N 8-20 Total Protein 7.2 g/dL N 6.4-8.9 Globulin 2.6 g/dL N 2-4 Albumin/Globulin Ratio 1.8 N 1-3 Alkaline Phosphatase 77 U/L N 34-104 Alt 17 U/L N 7-52 Ast 18 U/L N 13-39 Egfr Non- 91.1 >60 Egfr 110.3 >60 4 Laboratory test 01/04/2019 [facility] TSH (Thyroid 2.58 mcIU/mL N 0.34-5.60 [address] Stim Horm) [place] [address] [phone] Lamotrigine (Lamictal) 11.2 g/mL 2.5 - 15.0 6 Laboratory test 12/29/2018 [facility] Fecal Lactoferrin SEE RESULT [address] (Stool WBC) [place] [address] [phone] CBC Auto Diff 12/05/2018 [facility] White Blood Count 8.4 10^3/ uL N 3.5-[address] 0.8 [place] [address] [phone] Red Blood Count 4.29 10^6/uL N 4.00-5.40 [...] Cells % 0 Comp Metabolic Panel 12/05/2018 [facility] Sodium 140 mmol/L N 135-[address] [place] [address] [phone] Potassium 4.4 mmol/L N 3.5-5.0 Chloride 105 [...] Egfr Non- 89.7 >60 Egfr 108.5 >60 8 Laboratory test 12/05/2018 [facility] Lipase < 10 U/L Low 11.0 -82.[address] [place] [address] [phone] HCG < 0.60 mIU/mL 9 Laboratory test 11/17/2018 [facility] Rapid Strep Negative Negative [address] [place] [address] [phone] Laboratory test 11/17/2018 [facility] Rapid Strep A SEE RESULT [address] [address] [phone] Laboratory test 10/23/2018 [facility] Rapid Strep Negative Negative [address] [place] [address] [phone] Laboratory test 06/25/2018 [facility] TSH (Thyroid 3.56 mcIU/mL N 0.34-5.[address] Stim [place]orm) [place] [address] [phone] CBC Auto Diff 06/25/2018 [facility] [facility] White Blood 6.9 10^3/uL N 3.5-10.[address] [place] [address] [phone] Red Blood Count 3.80 10^6/uL Low 4.00-5.40 [...] % 0.1 Iron & Iron Binding 06/25/2018 [facility] Iron 52 g/dL N 50- 212 Capacity [address] [place] [address] [phone] Unsaturated Iron Binding 280 g/dL Total Iron Binding Capacity 332 g/dL N 250-450 Transferrin 237 mg/dL N 203-362 % Iron Saturation 16 % N 15-55 Vitamin B12 And 05/01/2018 [facility] Vitamin B12 537 pg/mL N 180-914 13 Folate Serum [address] [place] [address] [phone] Folic Acid (Folate) 6.33 ng/mL >3.99 Laboratory test 05/01/2018 [facility] Ferritin 14.5 ng/mL N 11 -307 finding [address] [place] [address] [phone] CBC Auto Diff 05/01/2018 [facility] White Blood 4.7 10^3/uL N 3.5-10.[address] [place] [address] [phone] Red Blood Count 3.74 10^6/uL Low 4.00-5.40 [...] Blood Cells % 0 Lipid Profile 05/01/2018 [facility] Triglycerides 221 mg/dL 14 (Trig/Chol/HDL) [place], [place] [phone] Cholesterol 171 mg/dL 15 HDL Cholesterol 26.6 mg/dL 16 LDL Cholesterol 100 mg/dL 17 Iron & Iron Binding 05/01/2018 [facility] Iron 32 g/dL Low 50-212 Capacity [place], [place] [phone] Unsaturated Iron Binding 298 g/dL Total Iron Binding Capacity 330 g/dL N 250-450 Transferrin 236 mg/dL N 203-362 % Iron Saturation 10 % Low 15-55 Laboratory 05/01/2018 [facility] TSH (Thyroid 6.43 High 0.34- 5.[address] Stim Horm) mcIU/mL [place], [place] [phone] Lipid Profile 04/22/2018 [facility] Triglycerides 177 mg/dL 19 (Trig/Chol/HD DRIVE L) [place], [place] [phone] Cholesterol 172 mg/dL 20 HDL Cholesterol 34.1 mg/dL 21 LDL Cholesterol 103 mg/dL 22 Laboratory test 04/22/2018 [facility] TSH (Thyroid 4.16 mcIU/mL N 0.34-5.[address] Stim Horm) [place] [address] [phone] CBC Auto Diff 04/22/2018 [facility] White Blood 7.5 10^3/uL N 3.5-10.[address] [place] [address] [phone] Red Blood Count 3.55 10^6/uL Low 4.00-5.40 [...] Red Blood Cells % 0 Laboratory 04/10/2018 [facility] Rapid Strep Negative Negative 23 test finding [address] [place] [address] [phone] Laboratory 04/10/2018 [facility] Rapid Strep A SEE RESULT 24 test finding [address] [place] [address] [phone] Laboratory 04/02/2018 [facility] Lamotrigine 15.9 g/mL 2.5 - 15.0 25 test finding [address] (Lamictal) [place] [address] [phone] Comp Metabolic 04/02/2018 [facility] Sodium 137 mmol/L Low 139 -145 Panel [facility] [place] [address] [phone] Potassium 4.0 mmol/L N 3.5-5.0 Chloride 104 [...] Egfr Non- 83.6 >60 Egfr 107.5 >60 26 Laboratory test 03/10/2018 [facility] Lamotrigine 13.1 g/mL 2.5 - [address] [place] [address] (Lamictal) 15.0 [place] [address] [phone] Laboratory test 08/25/2017 [facility] TSH (Thyroid 1.89 N 0.34 -5.[address] [place] [address] Stim Horm) mcIU/mL 0 [place] [address] [phone] Comp Metabolic 07/22/2017 [facility] Sodium 137 mmol/L N 133- [address] [place] [phone] Potassium 4.1 mmol/L N 3.5-5.0 Chloride 105 [...] 72.2 N >60 Egfr 92.8 N >60 28 Laboratory test 07/22/2017 [facility] Hemoglobin A1c 5.2 % N Less than [address] (Glyco HGB) 6.0 [place] [address] [phone] Ua Routine 06/18/2017 [employer] [facility] Ua Specific 1.015 [place] Ua PH 6 Ua Color martín Ua Appera cloudy Ua WBC trace Ua Protein trace Ua Glucose neg Ua Ketones neg Ua Bilirubin neg Ua Urobilinogen neg Ua Nitrite neg Ua Occult Blood large Urine Culture And 06/18/2017 [facility] Urine Culture SEE RESULT [address] [place] [address] [phone] Laboratory test 04/08/2017 [facility] Thyroglobulin AB <1.8 IU/ mL N <4.0 [address] [place] [address] [phone] Thyroperoxidase AB 315.57 IU/mL High <9 Free T4 (Free Thyroxine) 0.67 ng/dL N 0.61-1.12 TSH (Thyroid Stim Horm) 4.16 mcIU/mL N 0.34-5.60 Comp Metabolic Panel 04/04/2017 [facility] Sodium 138 mmol/L N 133-[address] [place] [address] [phone] Potassium 3.7 mmol/L N 3.5-5.0 Chloride 107 [...] 86.6 N >60 Egfr 111.4 N >60 32 CBC Auto Diff 04/04/2017 [facility] White Blood 8.2 10^3/uL N 3.5-10.[address] [place] [address] [phone] Red Blood Count 3.94 10^6/uL Low 4.0-5.4 [...] Cells % 0 N Laboratory test 04/04/2017 [facility] Monospot Negative N Negative finding [address] [place] [address] [phone] Urinalysis Profile 04/04/2017 [facility] Urine Color Yellow [place] [address] [place] [address] [phone] Urine Appearance Cloudy N Urine Specific [place] 1.019 N 1.010-1.030 Urine pH 7.0 N [...] Present Abnormal Absent Urine Culture And 04/04/2017 [facility] Urine Culture SEE RESULT [address] [place] [address] [phone] Laboratory test 04/04/2017 [facility] Lactic Acid 1.7 mmol/L N 0.5-[address]0 [place] [address] [phone] Rapid Strep A SEE RESULT BELOW 35 Laboratory test 04/04/2017 [facility] Magnesium 1.8 mg/dL Low 1.9-2.[address] [place] [address] [phone] Troponin-I (TnI) 0.00 ng/mL N <0.04 36 TSH (Thyroid Stim Horm) 6.69 mcIU/mL High 0.34-5.60 Laboratory 04/04/2017 [facility] Rapid Strep Negative N Negative [address] [place] [address] [phone] Laboratory 10/02/2016 [facility] Lamotrigine 12.6 g/mL N 2.5 - 15.[address] (Lamictal) [place] [address] [phone] Topomax (Topiramate) 2.3 g/mL N 39 CBC Auto Diff 10/02/2016 [facility] White Blood 6.9 10^3/uL N 3.5-10.[address] [place] [address] [phone] Red Blood Count 4.03 10^6/uL N 4.0-5.4 [...] % 0 N Comp Metabolic Panel 10/02/2016 [facility] Sodium 136 mmol/L N 133-145 [address] [place] [address] [phone] Potassium 3.8 mmol/L N 3.5-5.0 Chloride 108 [...] 74.5 N >60 Egfr 95.9 N >60 40 CBC Auto Diff 03/10/2016 [facility] White Blood 9.6 10^3/uL N 3.5-10.[address] [place] [address] [phone] Red Blood Count 4.58 10^6/uL N 4.0-5.4 [...] Cells % 0 N Laboratory test 03/10/2016 [facility] Partial 31.7 seconds N 26.0-36.[address] [place] [address] [phone] Lactic Acid 1.3 mmol/L N 0.5-2.0 41 Laboratory test 03/10/2016 [facility] HCG < 0.60 mIU/ mL N [address] [place] [address] [phone] TSH (Thyroid Stim Horm) 1.40 ?IU/mL N 0.34-5.60 B-Type Natriuretic Peptide BNP 18 pg/mL N 43 Lamotrigine (Lamictal) 14.9 g/mL N 2.5 - 15.0 44 Comp Metabolic Panel 03/10/2016 [facility] Sodium 137 mmol/L N 133-145 [address] [place] [address] [phone] Potassium 3.7 mmol/L N 3.5-5.0 Chloride 108 [...] 72.6 N >60 Egfr 93.4 N >60 45 Inr/Protime 03/10/2016 [facility] Inr 1.10 N 0.89-1.[address] [place] [address] [phone] Laboratory test 03/10/2016 [facility] Magnesium 2.2 mg/dL N 1.9-2.[address] [place] [address] [phone] Lipase 8 U/L Low 11.0-82.0 Creatine Kinase(CK) 63 U/L N 10-223 C Reactive Protein 14.41 mg/L High < 5.00 46 Troponin-I (TnI) 0.00 ng/mL N <0.03 47 CKMB 03/10/2016 [facility] CKMB ng/mL 1.1 ng/mL N 0.6-6.[address] [place] [address] [phone] Laboratory test 02/26/2016 [facility] Vitamin D 31.3 ng/mL N 30-[address] Total 25(Oh) [place] [address] [phone] Basic Metabolic 01/01/2016 [facility] Sodium 138 mmol/L N 133- [address] [place] [address] [phone] Potassium 4.0 mmol/L N 3.5-5.0 Chloride 108 mmol/L N 101-111 Co2 Carbon Dioxide 22 mmol/L N 22-32 Anion Gap 8 mmol/L N 2-11 Glucose 92 mg/dL N 70-100 Blood Urea Nitrogen 9 mg/dL N 6-24 Creatinine 0.75 mg/dL N 0.51-0.95 BUN/Creatinine Ratio 12.0 N 8-20 Calcium 9.2 mg/dL N 8.6-10.3 Egfr Non- 88.5 N >60 Egfr 113.8 N >60 48 Laboratory test 01/01/2016 [facility] Alkaline 78 U/L N 34- [address] [place] [place] [address] [phone] CBC Auto Diff 01/01/2016 [facility] White Blood Count 8.8 N 3.5-10.[address] 10^3/[place] [address] [phone] Red Blood Count 4.00 10^6/uL N 4.0-5.4 [...] Blood Cells % 0 N Laboratory test 12/25/2015 [facility] Vitamin D 25.9 ng/mL Low 30-50 [address] Total 25(Oh) [place], [place] [phone] TSH (Thyroid Stim Horm) 4.01 ?IU/mL N 0.34-5.60 50 Lipid Profile 12/25/2015 [facility] Triglycerides 214 mg/dL N 51 (Trig/Chol/HDL) [address] [place] [address] [phone] Cholesterol 177 mg/dL N 52 HDL Cholesterol 37.5 mg/dL N 53 LDL Cholesterol 97 mg/dL N 54 Laboratory test 12/25/2015 [facility] Glucose 98 mg/dL N 70- 100 [address] [place] [address] [phone] Laboratory test 12/20/2015 [facility] Cytology SEE RESULT [address] BELOW [place], [place] [phone] HPV Rna Ww/Reflex Genotype Negative N Negative 57 Laboratory test 08/14/2015 [facility] Urine Culture And SEE RESULT [address] [place] [address] [phone] Laboratory test 08/14/2015 [facility] Beta HCG (BHCG) < 0.60 N finding [address] Quantitative mIU/[place] [address] [phone] Urinalysis 08/14/2015 [facility] Urine Color Yellow N Profile [address] [place] [address] [phone] Urine Appearance Cloudy N Urine Specific [place] 1.013 N 1.010-1.030 Urine pH 6.0 N [...] Epithelial Cell Present Abnormal Absent CBC Auto Diff 06/11/2015 [facility] White Blood 6.3 10^3/uL N 4.8-10.[address] [place] [address] [phone] Red Blood Count 4.38 10^6/uL N 4.0-5.4 [...] Cells % 0.1 N Laboratory test 06/11/2015 [facility] HCG Qualitative Negative N Negative 59 finding [address] [place] [address] [phone] Urinalysis 06/11/2015 [facility] Urine Color Yellow N Profile [address] [place] [address] [phone] Urine Appearance Cloudy N Urine Specific [place] 1.026 N 1.010-1.030 Urine pH 5.0 N [...] Epithelial Cell Present Abnormal Absent Laboratory 06/11/2015 [facility] Lactic Acid 1.0 mmol/L N 0.5- 2.2 test finding [address] [place] [address] [phone] Urine Drug SCR 06/11/2015 [facility] Amphetamine Ur None N None Detect ED & Pain [address] [place] [address] [phone] Barbiturates Urine Screen None Detected N None Detect Benzodiazepine Urine Screen None Detected N None Detect Urine Cannabinoids Screen None Detected N None Detect Urine Cocaine Screen None Detected N None Detect Urine Opiates Screen Presumptive Posi <SEE NOTE> Abnormal None Detect 60 Urine Phencyclidine Screen None Detected N None Detect 61 Laboratory test 06/11/2015 [facility] Lamotrigine 11.0 g/mL N 2.5 - [address] (Lamictal) 15.0 [place] [address] [phone] Urine Culture And Sensitivities SEE RESULT BELOW 63 Laboratory test 05/16/2015 [facility] Culture SEE RESULT [address] [address] [phone] CBC Auto Diff 03/16/2015 [facility] White Blood 8.6 10^3/uL N 4.8-[address] Count .8 [place] [address] [phone] Red Blood Count 4.41 10^6/uL N 4.0-5.4 [...] Cells % 0 N Laboratory test 03/16/2015 [facility] Monospot Negative N Negative [address] [place] [address] [phone] CBC Auto Diff 03/09/2015 [facility] White Blood 6.8 10^3/uL N 4.8-10.[address] [place] [address] [phone] Red Blood Count 4.28 10^6/uL N 4.0-5.4 [...] % 0 N Comp Metabolic Panel 03/09/2015 [facility] Sodium 136 mmol/L N 133-[address] [place] [address] [phone] Potassium 4.0 mmol/L N 3.5-5.0 Chloride 107 [...] 91.8 N >60 Egfr 118.1 N >60 66 Urinalysis Profile 02/16/2015 [facility] Urine Color Yellow N [address] [place] [address] [phone] Urine Appearance Cloudy N Urine Specific [place] 1.017 N 1.010-1.030 Urine pH 6.0 N [...] Present Abnormal Absent Urine Culture And 02/16/2015 [facility] Urine (SEE NOTE) [address] [place] [address] [phone] CBC Auto Diff 02/16/2015 [facility] White Blood 11.5 High 4.8- [address] Count 10^3/uL 0.8 [place] [address] [phone] Red Blood Count 4.32 10^6/uL N 4.0-5.4 [...] % 0 N Comp Metabolic Panel 02/16/2015 [facility] Sodium 139 mmol/L N 133-145 [address] [place] [address] [phone] Potassium 4.3 mmol/L N 3.5-5.0 Chloride 106 [...] 90.4 N >60 Egfr 116.2 N >60 68 Laboratory test 02/16/2015 [facility] Magnesium 2.0 mg/dL N 1.9-2.[address] [place] [address] [phone] TSH (Thyroid Stimulating Horm) 1.87 IU/mL N 0.34-5.60 Lamotrigine 7.8 g/mL N 2.5 - 15.0 69 CBC Auto 02/14/2015 [facility] White Blood 13.0 10^3/uL High 4.8-10.[address] [place] [address] [phone] Red Blood Count 4.32 10^6/uL N 4.0-5.4 [...] % 0.1 N Comp Metabolic Panel 02/14/2015 [facility] Sodium 136 mmol/L N 133-[address] [place] [address] [phone] Potassium 4.5 mmol/L N 3.5-5.0 Chloride 103 [...] 83.8 N >60 Egfr 107.8 N >60 70 Laboratory test 01/26/2015 [facility] Surgical RUN DATE: [address] Pathology 02/02/ [place] [address] <SEE NOTE> [phone] Surgical 01/26/2015 [facility] S RUN DATE: [address] 02/02/ [place] [address] <SEE NOTE> [phone] Laboratory test 12/28/2014 [facility] Lamotrigine 12.4 N 2.5 [address] g/[place] [address] 15.0 [phone] Laboratory test 12/07/2014 [facility] Lamotrigine 9.5 g/mL N 2.5 [address] [place] [address] 15.0 [phone] Vitamin D 1,25 12/07/2014 [facility] Vitamin D 98 pg/mL Abnormal 18-7 75 And Vitamin D,[address] 1,25-Dihydroxy 8 [place] [address] [phone] Vitamin D, 25 12/07/2014 [facility] 25-Hydroxy 73 ng/mL N Hydroxy [address] Vitamin D2 [place] [address] [phone] 25-Hydroxy Vitamin D3 6.3 ng/mL N 25-Hydroxy Vitamin D Total 79 ng/mL N 76 Laboratory test 12/07/2014 [facility] Hemoglobin A1c 5.1 5-7 finding Vitamin D, 25 Hydroxy 08/10/2014 25-Hydroxy Vitamin D2 41 ng/mL N 77 25-Hydroxy Vitamin D3 6.3 ng/mL N 25-Hydroxy Vitamin D Total 47 ng/mL N 78 Iron & Iron Binding Capacity 08/10/2014 Iron 46 g/dL Low 50-212 Unsaturated Iron Binding 361 g/dL N Total Iron Binding Capacity 407 g/dL N 250-450 % Iron Saturation 11 % Low 15-55 Laboratory test finding 08/10/2014 Ferritin < 10.0 ng/mL Low 11-307 79 Vitamin B12 460 pg/mL N 180-914 80 Folate 11.39 ng/mL N >3.99 81 Laboratory test 08/10/2014 TSH (Thyroid 2.24 IU/mL N 0.34-5.60 82 finding Stimulating Horm) CBC Auto Diff 08/10/2014 [...] 08/10/2014 Creatine Kinase 76 U/L N 10-223 83 Comp Metabolic Panel 08/10/2014 Sodium 137 mmol/L N 133-145 Potassium 4.2 mmol/L N 3.7-5.6 Chloride 105 [...] 83.1 N >60 Egfr 106.9 N >60 84 Lipid Profile (Trig/Chol/HDL) 08/10/2014 Triglycerides 150 mg/dL N 85 Cholesterol 159 mg/dL N 86 HDL Cholesterol 26.7 mg/dL N 87 LDL Cholesterol 102 mg/dL N 88 Comp Metabolic Panel 01/10/2014 [facility] Sodium 139 mmol/L 133-[address] [place], [place] [phone] Potassium 3.9 mmol/L 3.7-5.6 Chloride 107 mmol/L [...] Egfr Non- 88.2 >60 Egfr 113.4 >60 89 CBC Auto Diff 01/10/2014 [facility] White Blood 8.7 10^3/uL 4.8-10.[address] [place] [address] [phone] Red Blood Count 4.28 10^6/uL 4.0-5.4 Hemoglobin [...] Blood Cells % 0 Laboratory test 10/28/2013 [facility] Lamotrigine 8.4 g/mL 2.5 - 15.0 [address] [place] [address] [phone] Laboratory test 09/01/2013 [facility] Lamotrigine 7.6 g/mL 2.5 - 15.0 [address] [place] [address] [phone] Laboratory test 05/29/2013 [facility] Lamotrigine 10.9 g/mL 2.5 - 15.0 [address] [place] [address] [phone] Urine Culture 05/28/2013 [facility] Urine Culture (SEE NOTE) [address] [place] [address] [phone] Laboratory test 12/15/2012 [facility] Lamotrigine 5.2 g/mL 2.5 - 15.0 [address] [place] [address] [phone] Laboratory test 10/22/2012 [facility] Serum Negative Negative [address] [place] [address] [phone] Urine Culture 10/22/2012 [facility] Urine Culture (SEE NOTE) [address] [place] [address] [phone] Throat-Beta 09/25/2012 [facility] Throat Beta (SEE NOTE) [address] [place] [address] [phone] Laboratory test 09/03/2012 [facility] Lamotrigine 3.9 g/mL 2.5 - 15.0 [address] [place] [address] [phone] Comp Metabolic 07/14/2012 [facility] Sodium 138 mmol/L 135- [address] [place] [address] [phone] Potassium 4.3 mmol/L 3.5-5.0 Chloride 106 mmol/L 101-111 Co2 (Carbon Dioxide) 28.0 mmol/L 22-32 Anion Gap 4.0 mmol/L 2-11 99 Glucose 93 mg/dL 70-100 BUN 10 mg/dL 6-24 Creatinine 0.8 mg/dL 0.50-1.40 One Over Creatinine 1.25 BUN/Creatinine Ratio 12.5 8-20 Calcium 9.4 mg/dL 8.1-9.9 Total Protein 6.8 GM/DL 6.2-8.1 Albumin 3.9 GM/DL 3.6-5.4 Globulin 2.9 GM/DL 2-4 Albumin/Globulin Ratio 1.3 1-3 Bilirubin Total 0.5 mg/dL 0.4-1.5 100 Alkaline Phosphatase 59 U/L 30-110 Alt (SGPT) 16 U/L 14-54 Ast (Sgot) 19 U/L 12-42 eGFR Non- 84.2 > 60 eGFR 108.3 > 60 101 CBC No Diff 07/14/2012 [facility] White Blood Count 8.2 CUMM 4.8-10.[address] [place] [address] [phone] Red Cell Count 3.83 CUMM Low 4.2-5.4 Hemoglobin 12.3 g/dL 12.0-16.0 Hematocrit 37 % 35-47 Mean Corpuscular Volume 96 um3 79-97 Mean Corpuscular Hemoglob 32 pg High 27-31 Mean Corpuscular HGB Cone 34 g/dL 32-36 Redcell Distribution WDTH 15 % 10.5-15 Platelet Count 312 CUMM 150-450 Mean Platelet Volume 8.6 um3 7.4-10.4 Laboratory test 07/14/2012 [facility] Lamotrigine 3.8 g/mL 2.5 - [address] 15[address]0 [place] [address] [phone] 1 [id number] 2 SEE RESULT BELOW Name: DAEN PENG : [address]: Kenrick Duran MD Acct: [id number] Unit: [id number] AGE: 38 Location: [facility] Re01/04/19 SEX: F Status: DEP ER SPEC: [id number] DEBBIE: 01/04/19-[address] [facility] [address]: Kenrick Duran MD REQ: [id number] RECD: 01/04/19160 STATUS: TOMASA COCHRAN DR: Jose Bell WEB ASSISTANT _ SOURCE: URINE SPDESC: ORDERED: Urine Culture COMMENTS: [id number] Procedure Result Reported Site Urine Culture Final 01/05/19- 1222 ML No growth of clinically significant organisms * ML - Main Lab . END OF REPORT DEPARTMENT OF PATHOLOGY, [address] [place] [address] Ty Guo M.D. Director [facility] # [id number] 3 Painting Manager: [id number] 4 Because ethnic data is not always readily [...] 15-29 5 Kidney failure <15 (or dialysis) 5 [id number] 6 ADDITIONAL INFORMATION This test was developed and its performance characteristics determined by [facility] in a manner consistent with CLIA requirements. This test has not been cleared or approved by the U.S. Food and Drug Administration. Test Performed by: [facility] [address] [place] [address] 7 SEE RESULT BELOW Name: DEAN PENG : [address]: Kyree Gutierrez MD Acct: [id number] Unit: [id number] AGE: 38 Location: [facility] Re12/29/18 SEX: F Status: DEP ER SPEC: [id number] DEBBIE: 12/29/18-[address] [facility] [address]: Kyree Gutierrez MD REQ: [id number] RECD: 12/29/18 STATUS: TOMASA COCHRAN DR: Jose Bell WEB ASSISTANT _ SOURCE: STOOL SPDESC: ORDERED: Fecal Lactoferr Procedure Result Reported Site Stool Specimen Description Final 12/29/181856 ML Stool Color Yellow Stool Form Nonformed Stool Consistency Liquid Fecal Lactoferrin (Stool WBC) Final 12/29/181856 ML Fecal Lactoferrin Negative by Immunoassay TEST LIMITATIONS: Assay detects elevated levels of lactoferrin released from fecal leukocytes as a marker of intestinal inflammation. The test may not be appropriate in immunocompromised persons. Fecal samples from breast fed infants should not be used with this assay. * ML - Main Lab . END OF REPORT DEPARTMENT OF PATHOLOGY, [address] [place] [address] Ty Guo M.D. Director [facility] # [id number] 8 Because ethnic data is not always readily [...] 15-29 5 Kidney failure <15 (or dialysis) 9 <5.0 Negative 5.0 - 25.0 Indeterminate (Repeat testing recommended after 72 hours) >25.0 Positive Perimenopausal women can display HCG levels of up to 20 mIU/mL 10 Painting Manager: [id number] 11 SEE RESULT BELOW Name: DEAN PENG : [address]: Donna Peguero MD Acct: [id number] Unit: [id number] AGE: 38 Location: [facility] Re11/17/18 SEX: F Status: REG REF SPEC: [id number] DEBBIE: 11/17/[address] [facility] [address]: Donna Peguero MD REQ: [id number] RECD: 11/17/18813 STATUS: COMP _ SOURCE: THROAT SPDESC: ORDERED: Strep A Request COMMENTS: [id number] Procedure Result Reported Site Rapid Strep A Request Final 11/17/18- 1849 ML Specimen received for Rapid Strep A Molecular testing * ML - Main Lab . END OF REPORT DEPARTMENT OF PATHOLOGY, [address] [place] [address] Ty Guo M.D. Director [facility] # [id number] Painting Manager: [id number] Normal Range 180 to 914 Indeterminate Range 145 to 180 Deficient Range <145 14 Desirable: <150 Borderline High: 150-199 High: 200-499 Very High: >500 15 Desirable: <200 Borderline High: 200-239 High: >239 16 Low: <40 Desirable: 40-60 High: >60 17 Desirable: <100 Near Optimal: 100-129 Borderline High: 130-159 High: 160-189 Very High: >189 18 FASTING 10 HOUR 19 Desirable: <150 Borderline High: 150-199 High: 200-499 Very High: >500 20 Desirable: <200 Borderline High: 200-239 High: >239 21 Low: <40 Desirable: 40-60 High: >60 22 Desirable: <100 Near Optimal: 100-129 Borderline High: 130-159 High: 160-189 Very High: >189 23 Painting Manager: [id number] 24 SEE RESULT BELOW Name: DEAN PENG Lee : [address]: Cydney Chen MD Acct: [id number] Unit: [id number] AGE: 37 Location: ED Re04/10/18 SEX: F Status: REG ER SPEC: [id number] DEBBIE: 04/10/[address] [facility] [address]: Cydney Chen MD REQ: [id number] RECD: 04/10/18 STATUS: TOMASA COCHRAN DR: Tanvir Vizcarra MD _ SOURCE: THROAT SPDESC: ORDERED: Strep A Request Procedure Result Reported Site Rapid Strep A Request Final 04/10/18- 9479 ML Specimen received for Rapid Strep A Molecular testing * ML - Main Lab . END OF REPORT DEPARTMENT OF PATHOLOGY, [address] [place] [address] Ty Guo M.D. Director [facility] # [id number] 25 ADDITIONAL INFORMATION This test was developed and its performance characteristics determined by [facility] in a manner consistent with CLIA requirements. This test has not been cleared or approved by the U.S. Food and Drug Administration. Test Performed by: [facility] - [address] [address] 26 Because ethnic data is not always [...] developed and its performance characteristics determined by [facility] in a manner consistent with CLIA requirements. This test has not been cleared or approved by the U.S. Food and Drug Administration. Test Performed by: [facility] - [facility] [address] [facility], [place] [address] 28 Because ethnic data is not always readily [...] 15-29 5 Kidney failure <15 (or dialysis) 29 Therapeutic target for the treatment of diabetes Mellitus patients is <7% HBA1C, and in selective patients <6.0%.Please refer to [place] [employer] Diabetic care guidelines for further information. 30 SEE RESULT BELOW Name: GINETTEDEAN Lee : [address]: Tanvir Vizcarra MD Acct: [id number] Unit: [id number] AGE: 36 Location: [facility] Re06/18/17 SEX: F Status: REG REF SPEC: [id number] DEBBIE: 06/18/17-[address] [facility] [address]: Tanvir Vizcarra MD REQ: [id number] RECD: 06/18/17 STATUS: COMP _ SOURCE: URINE SPDESC: ORDERED: Urine Culture COMMENTS: [id number] Urine Source: Random Procedure Result Reported Site Urine Culture Final 06/19/17- 1623 ML No growth of clinically significant organisms * ML - MAIN LAB ([facility]) . END OF REPORT * ML=Testing performed at Main Lab DEPARTMENT OF PATHOLOGY, [address] [place] [address] Ty Guo M.D. Director [facility] # [id number] 31 ADDITIONAL INFORMATION The thyroglobulin antibody testing method is an immunoenzymatic assay manufactured by [employer] and performed on the [employer]Activ DXI 800. Values obtained from different assay methods or kits may be different and cannot be used interchangeably. The results cannot be interpreted as absolute evidence for the presence or absence of malignant disease. Test Performed by: [facility] - [address] [address] 32 Because ethnic data is not always readily [...] 15-29 5 Kidney failure <15 (or dialysis) 33 SEE RESULT BELOW Name: DEAN PENG : [address]: Vance Garnett DO Acct: [id number] Unit: [id number] AGE: 36 Location: ED Re04/04/17 SEX: F Status: DEP ER SPEC: [id number] DEBBIE: 04/04/17-[address]: Vance Garnett DO REQ: [id number] RECD: 04/04/17 STATUS: TOMASA COCHRAN DR: [facility] Baldev Bonner MD _ SOURCE: URINE SPDESC: ORDERED: Urine Culture Procedure Result Reported Site Urine Culture Final 04/06/17- 919 ML No growth of clinically significant organisms * ML - MAIN LAB ([facility]) . END OF REPORT * ML=Testing performed at Main Lab DEPARTMENT OF PATHOLOGY, [address] [place] [address] Ty Guo M.D. Director [facility] # [id number] [facility] Severe Sepsis and Septic Shock Management Bundle Measure requires all lactic acids initially measuring >2.0 mmol/L be repeated. 35 SEE RESULT BELOW Name: DEAN PENG Lee : [address]: [facility] Acct: [id number] Unit: [id number] AGE: 36 Location: ED Re04/04/17 SEX: F Status: REG ER SPEC: [id number] DEBBIE: 04/04/[address]: Vance Garnett DO REQ: [id number] RECD: 04/04/17 STATUS: TOMASA COCHRAN DR: [facility] Baldev Bonner MD _ SOURCE: THROAT SPDESC: ORDERED: Strep A Request Procedure Result Reported Site Rapid Strep A Request Final 04/04/17- 1047 ML Specimen received for Rapid Strep A Molecular testing * ML - MAIN LAB ([facility]) . END OF REPORT * ML=Testing performed at Main Lab DEPARTMENT OF PATHOLOGY, [address] [place] [address] Ty Guo M.D. Director [facility] # [id number] 36 99th percentile=0.04 ng/mL Troponin results at [facility] and [facility] are not interchangeable. 37 Painting Manager: [id number] 38 ADDITIONAL INFORMATION This test was developed and its performance characteristics determined by [facility] in a manner consistent with CLIA requirements. This test has not been cleared or approved by the U.S. Food and Drug Administration. Test Performed by: [facility] [place] [address] Ladle Repairman: Kenrick Hightower II, M.D., Ph.D. 39 REFERENCE VALUE Reference values depend on clinical use: Anticonvulsant: 5.0-20.0 mcg/mL Psychiatric: 2.0-8.0 mcg/mL ADDITIONAL INFORMATION This test was developed and its performance characteristics determined by [facility] in a manner consistent with CLIA requirements. This test has not been cleared or approved by the U.S. Food and Drug Administration. Test Performed by: [place] [address] Ladle Repairman: Kenrick Hightower II, M.D., Ph.D. 40 Because ethnic data is not always [...] 5 Kidney failure <15 (or dialysis) 41 [facility] Severe Sepsis and Septic Shock Management Bundle Measure requires all lactic acids initially measuring >2.0 mmol/L be repeated. 42 <5.0 Negative 5.0 - 25.0 Indeterminate (Repeat testing recommended after 72 hours) >25.0 Positive Perimenopausal women can display HCG levels of up to 20 mIU/mL 43 >100 to <200 pg/mL: likely compensated congestive heart failure (CHF) 200 to 400 pg/mL: likely moderate CHF >400 pg/mL: likely moderate to severe CHF 44 Test Performed by: [place] [address] Ladle Repairman: Kenrick Hightower II, M.D., Ph.D. 45 Because ethnic data is not always readily [...] 15-29 5 Kidney failure <15 (or dialysis) 46 Acute inflammation: >10.00 47 Reference Range and Interpretation: TnI (ng/mL) Interpretation Less Than 0.03 ng/mL Not supportive of diagnosis of MA 0.03 - 0.50 ng/mL Indeterminate: suggest serial studies if clinically indicated. Greater than 0.5 ng/mL Consistent with diagnosis of MA 48 Because ethnic data is not always readily [...] 15-29 5 Kidney failure <15 (or dialysis) 49 FASTING 10 HOUR 50 FASTING 10 HOUR 51 Desirable <150 Borderline high 150-199 High 200-499 Very High >500 52 Desirable <200 Borderline high 200-239 High >239 53 Low <40 Desirable: 40-60 High: >60 54 Desirable: <100 mg/dL Near Optimal: 100-129 mg/dL Borderline High: 130-159 mg/dL High: 160-189 mg/dL Very High: >189 mg/dL 55 FASTING 10 HOUR 56 SEE RESULT BELOW Name: DEAN PENG : [address]: Jeremiah Zendejas WEB ASSISTANT Acct: [id number] Unit: [id number] AGE: 35 Location: [facility] Re12/20/15 SEX: F Status: REG REF SPEC: [id number] DEBBIE: 12/20/15-[address]: Jeremiah Zendejas WEB ASSISTANT REQ: [id number] RECD: 12/20/15 STATUS: SOUT _ ORDERED: IMAGE [...] was evaluated with the assistance of the mydecoPrep Test Imaging System. Due to cytologic findings at the chemical instrumentation officer microscope, comprehensive manual rescreening by a Cutter And Paster Press Clippings may be required. The Pap Smear is [...] every 1-3 years. RUN DATE: 12/22/15 [facility] LAB LIVE PAGE 1 Patient: DEAN PENG [id number] (Continued) CONTINUED ON NEXT PAGE * ML=Testing performed at [facility] Lab DEPARTMENT OF PATHOLOGY, [address] [place] [address] Ty Guo M.D. Director [facility] # [id number] 57 The high-risk HPV types detected by the assay include: 16, 18, 31, 33, 35, 39, 45, 51, 52, 56, 58, 59, 66, and 68. 58 SEE RESULT BELOW Name: DEAN PENG Lee : [address]: Jeremiah Zendejas WEB ASSISTANT Acct: [id number] Unit: [id number] AGE: 34 Location: LAB Re08/14/15 SEX: F Status: REG REF SPEC: [id number] DEBBIE: 08/14/15-[address]: Jeremiah Zendejas WEB ASSISTANT REQ: [id number] RECD: 08/14/15 STATUS: COMP _ SOURCE: URINE [facility]: ORDERED: Urine Culture Procedure Result Verified Site Urine Culture Final 08/16/15- 1126 ML Organism 1 NORMAL JUDE Flushing Count 25-50,000 (Moderate) CFU/ML * ML - MAIN LAB ([facility]) . END OF REPORT * ML=Testing performed at Main Lab DEPARTMENT OF PATHOLOGY, [address] [place] [address] Ty Guo M.D. Director [facility] # [id number] 59 Comment: f 60 Presumptive Positive 61 The urine specimen was tested at the listed cutoffs: Drug class test level (ng/mL) Amphetamines 500 Barbituates 200 Benzodiazepine metabolites 200 Cocaine metabolites 150 Cannabinoids 50 Opiates 300 Pcp 25 This is a screening procedure. Positive results are not confirmed. Specimen was received without chain of custody. Results should be used for medical purposes only. 62 Test Performed by: [facility] - [address] [address] Ladle Repairman: Kenrick Hightower II, M.D., Ph.D. 63 SEE RESULT BELOW Name: DEAN PENG Lee : [address]: Justin Tom MD Acct: [id number] Unit: [id number] AGE: 34 Location: ED Re06/11/15 SEX: F Status: DEP ER SPEC: [id number] DEBBIE: 06/11/[address] [facility] [address]: Justin Tom MD REQ: [id number] RECD: 06/11/15 STATUS: TOMASA COCHRAN DR: [facility] Jeremiah Zendejas WEB ASSISTANT _ SOURCE: URINE SPDESC: ORDERED: Urine Culture Procedure Result Verified Site Urine Culture Final 06/14/15- 0939 ML Organism 1 NORMAL JUDE Flushing Count >100,000 (Many) CFU/ML * ML - MAIN LAB ([facility]) . END OF REPORT * ML=Testing performed at Main Lab DEPARTMENT OF PATHOLOGY, [address] [place] [address] Ty Guo M.D. Director [facility] # [id number] 64 SEE RESULT BELOW Name: DEAN PENG : [address]: Jeremiah Zendejas NP Acct: [id number] Unit: [id number] AGE: 34 Location: [facility] Re05/16/15 SEX: F Status: REG REF SPEC: [id number] DEBBIE: 05/16/15-[address] [facility] [address]: Jeremiah Zendejas NP REQ: [id number] RECD: 05/16/15 STATUS: COMP _ SOURCE: THROAT SPDESC: ORDERED: Throat Culture Procedure Result Verified Site Throat Culture Final 05/18/15- 0752 ML Organism 1 NORMAL JUDE Quantity 2+ Throat cultures are clinically indicated to detect the presence of group A strep, arcanobacterium and yeast. In certain cases, predominating organisms will be reported. * ML - MAIN LAB ([facility]) . END OF REPORT * ML=Testing performed at Main Lab DEPARTMENT OF PATHOLOGY, [address] [place] [address] Ty Guo M.D. Director [facility] # [id number] 65 N 66 Because ethnic data is not always [...] 5 Kidney failure <15 (or dialysis) 67 RUN DATE: 02/19/15 [facility] LAB LIVE PAGE 1 RUN TIME: [address] [place] [address] Specimen Inquiry Name: DEAN PENG Lee : [address]: Srinivas Boston MD Acct: [id number] Unit: [id number] AGE: 34 Location: ED Re02/16/15 SEX: F Status: DEP ER SPEC: [id number] DEBBIE: 02/16/[address]: Hernando House DO REQ: [id number] RECD: 02/16/15 STATUS: TOMASA COCHRAN DR: [facility] Marito Turpin III, MD _ SOURCE: URINE [facility]: ORDERED: Urine Culture Procedure Result Verified Site Urine Culture Final 02/19/15- 0834 ML Organism 1 ESCHERICHIA COLI Flushing Count 25-50,000 (Moderate) CFU/ML Organism 2 NORMAL JUDE Flushing Count 25-50,000 (Moderate) CFU/ML 1. ESCHERICHIA COLI [...] antibiotic reporting. * ML - MAIN LAB ([facility]) . END OF REPORT * ML=Testing performed at Main Lab DEPARTMENT OF PATHOLOGY, [address] [address] Ty Guo M.D. Director [facility] # [id number] 68 Because ethnic data is not always [...] 5 Kidney failure <15 (or dialysis) 69 Test Performed by: [place] [address] Ladle Repairman: Kenrick Hightower II, M.D., Ph.D. 70 Because ethnic data is not always readily [...] 15-29 5 Kidney failure <15 (or dialysis) 71 RUN DATE: 02/02/15 [facility] LAB LIVE PAGE 1 RUN TIME: [address] [place] [address] Specimen Inquiry Name: GINETTEDEAN : [address]: Jeremiah Zendejas WEB ASSISTANT Acct: [id number] Unit: [id number] AGE: 34 Location: [facility] Re01/26/15 SEX: F Status: REG REF SPEC: [id number] DEBBIE: 01/26/15-[address] [facility] [address]: Tanvir Vizcarra MD REQ: [id number] RECD: 01/26/15 STATUS: SHAUN COCHRAN DR: Jeremiah Zendejas WEB ASSISTANT _ ORDERED: GOM METH STN, PASS STAIN, [...] performed at Main Lab DEPARTMENT OF PATHOLOGY, [facility] [address] [place] [address] Ty Guo M.D. Director [facility] # [id number] 72 RUN DATE: 02/02/15 [facility] LAB LIVE PAGE 1 RUN TIME: 1026 [facility] [address] [place], [place] [address] Specimen Inquiry Name: DEAN PENG : [address]: Jeremiah Zendejas NP Acct: [id number] Unit: [id number] AGE: 34 Location: [facility] Re01/26/15 SEX: F Status: REG REF SPEC: DEBBIE: 01/26/15-[address] [facility] [address]: Tanvir Vizcarra MD REQ: [id number] RECD: 01/26/15 STATUS: SHAUN COCHRAN DR: Jeremiah Zendejas WEB ASSISTANT _ ORDERED: GOM METH STN, PASS STAIN, [...] performed at Main Lab DEPARTMENT OF PATHOLOGY, [facility] [address] [place], [place] [address] Ty Guo M.D. Director [facility] # [id number] RUN DATE: 02/02/15 [facility] LAB LIVE PAGE 2 RUN TIME: [address] [place] [address] Specimen Inquiry Patient: DEAN PENG [id number] (Continued) MICROSCOPIC DESCRIPTION (Continued) Signed (signature on file) Griselda Garsia MD 0928 END OF REPORT * ML=Testing performed at Main Lab DEPARTMENT OF PATHOLOGY, [address] [place] [address] Ty Guo M.D. Director [facility] # [id number] 73 Test Performed by: [place] [address] Ladle Repairman: Kenrick Hightower II, M.D., Ph.D. 74 Test Performed by: [place] [address] Ladle Repairman: Kurt Hinton M.D. 75 Test Performed by: [place] [address] Ladle Repairman: Kurt Hinton M.D. 76 Interpretation: 51-80 ng/mL (increased risk of hypercalciuria) REFERENCE VALUE 25-HYDROXY D TOTAL (D2+D3) Optimum levels in the healthy population are 20-50, patients with bone disease may benefit from higher levels within this range. Test Performed by: [place] [address] Ladle Repairman: Kurt Hinton M.D. 77 FASTING 10 HOUR 78 REFERENCE VALUE 25-HYDROXY D TOTAL (D2+D3) Optimum levels in the healthy population are 20-50, patients with bone disease may benefit from higher levels within this range. Test Performed by: [place] [address] Ladle Repairman: Kurt Hinton M.D. 79 FASTING 10 HOUR 80 Normal Range 180 to 914 Indeterminate Range 145 to 180 Deficient Range <145 81 FASTING 10 HOUR 82 FASTING 10 HOUR 83 FASTING 10 HOUR 84 Because ethnic data is not always readily [...] 15-29 5 Kidney failure <15 (or dialysis) 85 Desirable <150 Borderline high 150-199 High 200-499 Very High >500 86 Desirable <200 Borderline high 200-239 High >239 87 Low <40 Desirable: 40-60 High: >60 88 Desirable <100 Near Optimal 100-129 Borderline high 130-159 High 160-189 Very High >189 89 Because ethnic data is not always [...] <15 (or dialysis) 90 Test Performed by: [place] [address] Ladle Repairman: Luis Altamirano III, M.D. 91 Test Performed by: [place] [address] Ladle Repairman: Luis Altamirano III, M.D. 92 Test Performed by: [place] [address] Ladle Repairman: Luis Altamirano III, M.D. 93 RUN DATE: 05/30/13 [facility] LAB LIVE PAGE 1 RUN TIME: [address] [place] [address] Specimen Inquiry Name: DEAN KEYES : [address]: Momo Diaz MD Acct: [id number] Unit: [id number] AGE: 32 Location: [facility] Re05/28/13 SEX: F Status: DEP ER SPEC: [id number] DEBBIE: 05/28/13-[address]: Momo Diaz MD REQ: [id number] RECD: 05/28/13 STATUS: COMP OTHR DR: Tanvir Vizcarra MD _ SOURCE: URINE SPDESC: ORDERED: Urine Culture QUERIES: Medent Number [id number] Procedure Result Verified Site Urine Culture Final 05/30/13- 1112 ML Organism 1 NORMAL JUDE Flushing Count 25-50,000 (Moderate) CFU/ML END OF REPORT * ML=Testing performed at Main Lab DEPARTMENT OF PATHOLOGY, [facility] [address] [place] [address] Ty Guo M.D. Director [facility] Permit #[id number] 94 Test Performed by: [address] [address] Ladle Repairman: Luis Altamirano III, M.D. 95 This test detects intact HCG only and is indicated for the early detection of . 96 RUN DATE: 10/24/12 [facility] LAB LIVE PAGE 1 RUN TIME: 928 [facility] [address] [place], [place] [address] Specimen Inquiry Name: DEAN KEYES Lee : [address]: Lynette Olivier MD Acct: [id number] Unit: [id number] AGE: 32 Location: [facility] Re10/22/12 SEX: F Status: DEP ER SPEC: [id number] DEBBIE: 10/22/12-[address]: Lynette Olivier MD REQ: [id number] RECD: 10/22/12 STATUS: COMP OTHR DR: GISSELL Carlin MD,Yudi Yadav MD,Clinton Blanco _ SOURCE: URINE [facility]: ORDERED: Urine Culture Procedure Result Verified Site Urine Culture Final 10/24/12- 927 ML Organism 1 STREP GROUP B Flushing Count 25-50,000 (Moderate) CFU/ML Organism 2 NORMAL JUDE Flushing Count 75-100,000 (Many) CFU/ML Susceptibility testing of penicillins and other B-lactams approved by FDA for treatment of Streptococcus pyogenes (Group A Strep) and Streptococcus agalactiae (Group B Strep) is not necessary for clinical purposes and need not be done routinely, since as with vancomycin, resistant strains have not been recognized. (CLSI X215-S65;p.66) Positive isolates will be saved for one week. Please call the Microbiology Laboratory if further susceptibility testing is needed. END OF REPORT * ML=Testing performed at Main Lab DEPARTMENT OF PATHOLOGY, [address] [place] [address] Ty Guo M.D. Director [facility] Permit #[id number] 97 RUN DATE: 09/27/12 [facility] LAB LIVE PAGE 1 RUN TIME: 801 [place], [place] [address] Specimen Inquiry Name: STEPHYDEAN Lee : [address]: Lucas Arce MD Acct: [id number] Unit: [id number] AGE: 31 Location: [facility] Re09/25/12 SEX: F Status: DEP ER SPEC: [id number] DEBBIE: 09/25/[address] [facility] [address]: Lucas Arce MD REQ: [id number] RECD: 09/25/12 STATUS: TOMASA COCHRAN DR: Yudi Chun MD _ SOURCE: THROAT SPDESC: ORDERED: Throat Beta Str Procedure Result Verified Site Throat Beta Strep Culture Final 09/27/12- 0802 ML Negative For Group A Beta Streptococcus END OF REPORT * ML=Testing performed at Main Lab DEPARTMENT OF PATHOLOGY, [address] [place] [address] Ty Guo M.D. Director [facility] Permit #[id number] 98 Test Performed by: [place] [address] Ladle Repairman: Luis Altamirano III, M.D. R 99 Anion gap measurement may be of limited value in the presence of any alkalosis, especially in a combined acid base disorder. . 100 A metabolite of Naproxen, O-desmethylnaproxen, has been shown to interfere with the Jendrkalieik-Julien method for measuring total bilirubin. Samples from patients who have taken Naproxen have shown spurious elevation in total bilirubin levels. 101 Because ethnic data is not always readily [...] 15-29 5 Kidney failure <15 (or dialysis) 102 Test Performed by: [address] [address] Ladle Repairman: Luis Altamirano III, M.D. Procedures Date Code Description Status 08/20/2017 02089 Polysomnography Sleep Staging 4+ Parameters Completed 07/03/2016 64475 EEG Monitoring & Video Recording Completed 07/02/2016 81136 EEG Monitoring & Video Recording Completed 07/01/2016 96057 EEG Monitoring & Video Recording Completed 06/30/2016 77878 EEG Monitoring & Video Recording Completed 06/29/2016 74073 EEG Monitoring & Video Recording Completed 06/28/2016 09526 EEG Monitoring & Video Recording Completed 01/15/2016 78572 Pulmonary Function><Bronchodil Completed 12/21/2015 79181 EKG Tracing & Interpretation Completed 12/20/2015 57507 EKG Tracing & Interpretation Completed 01/26/2015 91881 Biopsy Skin Lesion Single Completed 12/28/2014 88286 EEG Recording Awake & Asleep Completed 01/15/2013 81567 ECHO Stress Test Incl Perf Contiuous ekg Monitoring W/Phys Completed Superv 12/15/2012 54288 Cardiac Event Monitor Completed 12/11/2012 71762 ECHO Transthoracic, Real-Time 2D With Doppler And Color Completed Flow 11/18/2012 75476 EKG Tracing & Interpretation Completed 09/03/2012 62293 Holter Monitor Review (24 hr)dr review & interp only Completed 09/01/2012 49199 Holter Monitor Review (24 hr)dr review & interp only Completed 08/21/2012 41980 EEG Recording Awake & Asleep Completed Encounters Type Date Location Provider Dx Diagnosis Office Visit 12/08/2018 [facility] Darion Mena NP G43.009 Migraine w/o aura, 11:00a Services Of Advertising Traffic Manager not intractable, w/o status migrainosus F44.5 Conversion disorder with seizures or convulsions Office Visit 11/17/2018 3:00p [employer] Internal Donna Sudhir, J02.9 Acute pharyngitis, Medicine - MD unspecified [address] H60.93 Unspecified otitis externa, bilateral Office Visit 10/21/2018 1:20p [facility] Internal Andreaofia Ray, J01.90 Acute sinusitis, Medicine - TERADATA DEVELOPER [address] R05 Cough H66.92 Otitis media, unspecified, left ear Office Visit 08/19/2018 1:00p [facility] Internal Andreaofimagaly Bell, J01.90 Acute sinusitis, Medicine - TERADATA DEVELOPER [address] R05 Cough Z23 Encounter for immunization Office Visit 07/15/2018 1:20p [facility] Internal Andreaofia Ray, Z00.01 Encounter for Medicine - [place] TERADATA DEVELOPER [address] medical exam w abnormal findings G47.33 Obstructive sleep apnea (adult) (pediatric) J45.30 Mild persistent asthma, uncomplicated L03.116 Cellulitis of left lower limb M25.562 Pain in left knee D50.9 Iron deficiency anemia, unspecified 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 D17.1 Benign lipomatous neoplasm of skin, subcu of trunk Z68.43 Body mass index (BMI) 50-59.9 , adult Office Visit 05/08/2018 1:40p [facility] Internal Andreaofia E03.9 Hypothyroidism, Medicine - Ray, TERADATA DEVELOPER [address] D50.9 Iron deficiency anemia, unspecified K13.79 Other lesions of oral mucosa J06.9 Acute upper respiratory infection, unspecified Office Visit 04/22/2018 11:00a [facility] Internal Jose Bell, H81.399 Other peripheral Medicine - TERADATA DEVELOPER vertigo, [address] unspecified ear G40.909 Epilepsy, unsp, not intractable, without status epilepticus E03.9 Hypothyroidism, unspecified E66.01 Morbid (severe) obesity due to excess calories N92.0 Excessive and frequent menstruation with regular cycle Z13.220 Encounter for screening for lipoid disorders Office Visit 03/10/2018 2:40p [facility] Internal Tanvir H81.399 Other peripheral Elizabeth - Sid Vizcarra. vertigo, [address] unspecified ear G40.909 Epilepsy, unsp, not intractable, without status epilepticus Office Visit 01/21/2018 9:40a [facility] Internal Baldev Beck J45.40 Moderate persistent Elizabeth Bonner M.D.,FACP asthma, [address] uncomplicated Z23 Encounter for immunization Office Visit 01/15/2018 [facility] Internal Tanvir E03.9 Hypothyroidism, 1:40p Elizabeth [...] intractable, without status migrainosus Office Visit 10/16/2017 [facility] Internal Tanvir E03.9 Hypothyroidism, 1:40p Elizabeth [...] Sleep Services Of MD Pola apnea (adult) [facility] (pediatric) E66.01 Morbid (severe) obesity due to excess calories Office Visit 07/21/2017 10:15a [facility] Diana Pola, R06.83 [facility] J44.9 Chronic obstructive pulmonary disease, unspecified E66.01 Morbid (severe) obesity due to excess calories Office 07/18/2017 Neurohospital[facility] Clinton Blanco G43.909 Migraine, unsp, Visit 3:00p Elle Yadav M.D. not intractable, without status migrainosus F44.5 Conversion disorder with seizures or convulsions Office Visit 07/17/2017 [facility] Internal Tanvir E03.9 Hypothyroidism, 1:20p Elizabeth Vizcarra M.D. unspecified [address] E66.01 Morbid (severe) obesity due to excess calories R73.9 Hyperglycemia, unspecified Office Visit 06/18/2017 1:20p [facility] Internal Tanvir Vizcarra, R30.0 Dysuria Medicine Alan Shah Fletcher Office Visit 05/15/2017 2:00p [facility] Internal Tanvir Vizcarra, Z00.00 Encntr for Medicine - [place] [address].[address] medical exam w/o abnormal findings D17.9 Benign lipomatous neoplasm, unspecified G47.33 Obstructive sleep apnea (adult) (pediatric) F33.9 Major depressive disorder, recurrent, unspecified Office 04/18/2017 Neurohospitalist Clinton Blanco G43.909 Migraine, unsp, Visit 10:15a Elle Yadav M.D. not intractable, without status migrainosus F44.5 Conversion disorder with seizures or convulsions Office Visit 04/08/2017 11:20a [facility] Internal Tanvir Vizcarra, J06.9 Acute upper Medicine Alan Shah respiratory [address] infection, unspecified H81.393 Other peripheral vertigo, bilateral E03.9 Hypothyroidism, unspecified Office Visit 04/02/2017 [facility] Internal Marito Gruber K08.89 Other specified 2:20p Elizabeth Turpin M.D. disorders of teeth [place] and supporting structures Office Visit 03/25/2017 [facility] Francia Ramey K05.00 Acute gingivitis, 3:40p Elizabeth Vizcarra plaque induced [address] Pablo Office Visit 10/31/2016 [facility] Jeremiah Zendejas, J00 Acute nasopharyngitis 2:20p Medicine - JANNIE [common cold] [address] Office Visit 10/29/2016 [facility] Jeremiah Zendejas, F41.9 Anxiety disorder, 11:00a Medicine - WEB ASSISTANT unspecified [address] F33.9 Major depressive disorder, recurrent, unspecified F44.5 Conversion disorder with seizures or convulsions G43.909 Migraine, unsp, not intractable, without status migrainosus Z02.71 Encounter for disability determination Office 10/17/2016 [facility] Blanco G43.909 Migraine, unsp, Visit 10:00a Elle Yadav M.D. not intractable, without status migrainosus F44.5 Conversion disorder with seizures or convulsions Office Visit 10/07/2016 10:40a [employer] [facility] Internal Jeremiah British, G43.909 Migraine , unsp, Medicine - WEB ASSISTANT not intractable, [address] without status migrainosus [...] intractable, without status migrainosus Office Visit 07/01/2016 [facility] Kady Baker F44.5 Conversion 10:59a Clinic MD disorder with seizures or convulsions G43.909 Migraine, unsp, not intractable, without status migrainosus Office Visit 06/30/2016 [facility] Kady Baker F44.5 Conversion 10:59a Clinic MD disorder with seizures or convulsions G43.909 Migraine, unsp, not intractable, without status migrainosus Office Visit 06/29/2016 [facility] Kady Baker F44.5 Conversion 10:58a Clinic MD disorder with seizures or convulsions G43.909 Migraine, unsp, not intractable, without status migrainosus Office Visit 06/28/2016 [facility] Kady Baker F44.5 Conversion 10:55a Clinic MD disorder with seizures or convulsions G43.909 Migraine, unsp, not intractable, without status migrainosus Office Visit 05/10/2016 Scooter Blanco G43.009 Migraine w/o aura, 10:45a Neurologic [place] Yadav not intractable, [facility] w/o status migrainosus G40.209 Local-rel symptc epi w cmplx prt seiz,not ntrct,w/o stat epi Office Visit 05/03/2016 1:40p [facility] Jeremiah Zendejas, M79.632 Pain in left Medicine - [place] WEB ASSISTANT forearm Rd S50.12xA Contusion of left forearm, initial encounter Office Visit 03/26/2016 3:00p [facility] Jeremiah Zendejas, H81.319 Aural vertigo, Medicine - WEB ASSISTANT unspecified ear [address] J02.9 Acute pharyngitis, unspecified Office Visit 02/22/2016 [facility] Jeremiah Zendejas, F33.9 Major depressive 1:00p Medicine - WEB ASSISTANT disorder, recurrent, [address] unspecified Office Visit 01/24/2016 [facility] Jeremiah Zendejas, G40.909 Epilepsy, unsp , not 3:40p Medicine - WEB ASSISTANT intractable, without [address] status epilepticus Office Visit 01/01/2016 [facility] Jeremiah Zendejas, A09 Infectious 3:00p Medicine - WEB ASSISTANT gastroenteritis and [address] colitis, unspecified R11.2 Nausea with vomiting, unspecified Office Visit 12/20/2015 2:40p [facility] Jeremiah Zendejas, Z01.419 Encntr for solar project coordination specialist Medicine - [place] WEB ASSISTANT exam (general) Rd (routine) w/o abn findings [...] Otalgia, unspecified ear Office Visit 12/18/2015 1:00p [facility] Francia Zendejas, G40.909 Epilepsy , unsp, Medicine - WEB ASSISTANT not intractable, [address] without status epilepticus R05 Cough Office Visit 11/14/2015 3:00p [place] Aleks Baker, G40.909 Epilepsy, unsp, [facility] not intractable, without status epilepticus F41.9 Anxiety disorder, unspecified Office Visit 10/30/2015 3:30p [facility] Jeremiah British, J01.90 Acute sinusitis, Medicine - WEB ASSISTANT unspecified [address] H66.92 Otitis media, unspecified, left ear Office Visit 10/11/2015 10:00a [facility] Jeremiahlen Zendejas, J02.9 Acute pharyngitis, Medicine - WEB ASSISTANT unspecified [address] 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 Office Visit 09/13/2015 4:00p [facility] Jeremiah British, K59.1 Functional Medicine - [place] WEB ASSISTANT diarrhea Rd G40.909 Epilepsy, unsp, not intractable, without status epilepticus Office Visit 08/14/2015 11:30a [facility] Jeremiah Zendejas, N92.6 Irregular Medicine - WEB ASSISTANT menstruation, [address] unspecified R35.0 Frequency of micturition Office Visit 06/22/2015 2:30p [facility] Jeremiah British, 522.0 Pulpitis Medicine - WEB ASSISTANT [address] Office Visit 06/13/2015 3:00p [facility] Jeremiah Zendejas, 345.90 Epilepsy Unspec Medicine - WEB ASSISTANT W/O Intractable [address] 300.02 Anxiety Disorder Generalized 780.39 Convulsions Other 300.00 Anxiety State Unspec Office Visit 05/16/2015 10:30a [facility] Jeremiah British, 462 Pharyngitis Acute Medicine - WEB ASSISTANT [address] Office Visit 05/09/2015 11:00a [facility] Jeremiah British, 380.13 Ear Infection Medicine - WEB ASSISTANT External Acute [address] Other 462 Pharyngitis Acute 461.1 Sinusitis Acute Frontal 786.2 Cough 784.0 Headache 380.10 Otitis Externa Infective Unspec Office Visit 03/17/2015 11:00a [facility] Jeremiah Zendejas, 780.4 Dizziness & Medicine - [place] WEB ASSISTANT [address] 300.11 Conversion Disorder Office Visit 03/06/2015 2:00p [facility] Jeremiah Zendejas, 381.4 Otitis Media Acute Medicine - WEB ASSISTANT Or Chronic [address] Nonsuppurative 461.1 Sinusitis Acute Frontal 784.0 Headache 780.4 Dizziness & Giddiness Office Visit 03/02/2015 Terrell/Scooter Blanco 345.90 Epilepsy Unspec 1:45p Neurologic Serv Of [place] Yadav W/O Intractable Advertising Traffic Manager 300.11 Conversion Disorder Office Visit 02/14/2015 11:30a [facility] Jeremiah Zendejas, 780.4 Dizziness & Medicine - [place] WEB ASSISTANT [address] Office Visit 02/02/2015 3:00p [facility] Jeremiah Zendejas, 698.9 Pruritic Disorder Medicine - [place] WEB ASSISTANT Unspec Rd 702.8 Dermatoses Other Spec Office Visit 01/16/2015 2:30p [facility] Jeremiah Zendejas, 698.8 Pruritic Medicine - [place] WEB ASSISTANT Conditions Spec Rd Other 300.02 Anxiety Disorder Generalized 698.9 Pruritic Disorder Unspec Office Visit 01/13/2015 1:30p [facility] Jeremiah Zendejas, 698.8 Pruritic Medicine - [place] WEB ASSISTANT Conditions Spec Rd Other 493.10 Asthma Intrinsic Unspecified 698.9 Pruritic Disorder Unspec Office Visit 12/15/2014 Terrell/Scooter Blanco 345.90 Epilepsy Unspec 2:30p Neurologic Serv Of [place] Yadav W/O Intractable [employer]vertising Traffic Manager Office Visit 12/07/2014 [facility] Medicine Jeremiah Zendejas, 345.90 Epilepsy Unspec 2:00p - [place] JANNIE W/O Intractable 293.83 Mood Disorder In Conditions Classified Elsewhere 372.00 Conjunctivitis Acute Unspec 268.9 Vitamin D Deficiency Unspec V77.1 Screening Diabetes Mellitus 296.90 Episodic Mood Disorder NOS Office Visit 10/11/2014 1:30p [facility] Medicine - Jeremiah Zendejas, WEB ASSISTANT 133.0 Scabies [place] 698.8 Pruritic Conditions Spec Other 690.18 Seborrheic Dermatitis Other Office Visit 09/26/2014 11:30a [facility] Jeremiah Zendejas, 461.9 Sinusitis Acute Medicine - WEB ASSISTANT Unspec [place] 786.2 Cough 311 Depressive Disorder Not Elsewhere Spec Office Visit 08/30/2014 1:30p [facility] Jeremiah Zendejas, 311 Depressive Medicine - WEB ASSISTANT Disorder Not Fletcher Elsewhere Spec 786.2 Cough Office Visit 08/22/2014 11:30a [facility] Jeremiah Zendejas, 466.0 Bronchitis Acute Medicine - WEB ASSISTANT [place] 311 Depressive Disorder Not Elsewhere Spec 280.9 Iron Deficiency Anemia Unspec Office Visit 08/18/2014 Nevin Blanco 345.90 Epilepsy Unspec 9:30a Neurologic Serv Of [place] Yadav W/O Intractable Advertising Traffic Manager Office Visit 08/09/2014 [facility] Medicine Dinorah 780.79 Malaise And 10:00a - Sonya Lorenzo M.D. Fatigue Other 300.02 Anxiety Disorder Generalized 345.90 Epilepsy Unspec W/O Intractable 278.00 Obesity Unspec V17.49 Family HX Of Other Cardiovascular Diseases 268.9 Vitamin D Deficiency Unspec 493.10 Asthma Intrinsic Unspecified Office Visit 06/16/2013 3:30p [place] Aleks Blanco 345.90 Epilepsy Unspec [facility] Pablo Yadav W/O Intractable 300.02 Anxiety Disorder Generalized Office Visit 02/25/2013 11:50a [facility] Internal Yudi 345.91 Epilepsy Unspec W/ Medicine Alan Carlin M.D. Intractable [place] 493.90 Asthma Unspec W/O Status Asthmaticus 300.00 Anxiety State Unspec Office Visit 02/17/2013 11:15a [place] Aleks Blanco 345.90 Epilepsy Unspec [facility] Pablo Yadav W/O Intractable Office Visit 02/11/2013 1:00p [facility] Dinorah Lorenzo 345.91 Epilepsy Unspec Elizabeth Phillips M.D. W/ Intractable [place] Office Visit 11/18/2012 9:30a [facility] Fidel Muhammad 786.50 Pain Chest Unspec Of [facility] Pablo Goodwin, [facility], [facility] 785.1 Palpitations Office Visit 11/17/2012 [place] Clinton Blanco 345.40 Local-Related 9:30a Aleks Yadav M.D. Epilepsy W/O [facility] Mention Of Intractable Epilepsy 346.10 Migraine Common W/O Intractable W/O Status Migrainosus Office Visit 10/27/2012 11:00a [facility] Tanvir 780.4 Dizziness & Elizabeth Vizcarra M.D. Giddiness [place] Office Visit 09/28/2012 11:20a [facility] [place] 493.90 Asthma Unspec W/ O Elizabeth Vizcarra M.D. Status [place] Asthmaticus 466.0 Bronchitis Acute Office Visit 09/07/2012 [facility] [place] 346.92 Migraine 2:40p Elizabeth Vizcarra M.D. Unspecified, W/Out [place] Mention Intractable Migraine Office Visit 09/01/2012 [place] 345.91 Epilepsy Unspec W/ 11:00a Neurologic [place] Yadav Intractable [facility] Office Visit 08/31/2012 [facility] [place] 427.89 Cardiac 11:40a Elizabeth Vizcarra M.D. Dysrhythmia Other [place] 346.92 Migraine Unspecified, W/Out Mention Intractable Migraine Office Visit 08/20/2012 12:10p [facility] Yudi Raegan, 300.00 Anxiety State Elizabeth Phillips M.D. Unspec [place] 493.90 Asthma Unspec W/O Status Asthmaticus 401.9 Hypertension Unspec V06.1 Vbfscdsmjn-Pyatodm-Vhvisxke Combined (DTaP) Office 07/20/2012 [facility] Yudi V04.81 Need For Prophylactic Visit 11:50a Elizabeth Carlin M.D. Vaccination & [place] Inoculation/Influenza 345.90 Epilepsy Unspec W/O Intractable 300.00 Anxiety State Unspec 493.90 Asthma Unspec W/O Status Asthmaticus 401.9 Hypertension Unspec Plan of Treatment Future Appointment(s):04/23/2019 2:00 pm - Darion Mena NP at [facility]0901/15/2019 - Darion Mena, JANNIEG43.009 Migraine without aura, not intractable , without status ltapoL24.5 Conversion disorder with seizures or convulsions
[2019-01-17] MEDS ORDERED: NS 0.9% 1000 ML** 1,000 ML IV ONE (12:45)
--- NOTE | 2019-01-17 12:47 | ED ---
Neurological HPI - HPI Summary HPI Summary: A 38 y/o F presents to ED with chronic episodes of disorientation for the past few weeks. She feels shes here but not. She was staying at a hotel and checked out this AM. She is awaiting housing, but will be staying at a restoration in [place] until then. She had an unwitnessed LOC in the ED bathroom and hit her head at approx. [address]. [address] Yadav, neuro, who changed her Lamictal to 400mg BID three days ago. PMHx: seizures, vertigo, anxiety, depression. - History of Current Complaint Chief Complaint: EDSeizure Stated Complaint: TROUBLES WITH SEIZURES PER PT Time Seen by Provider: 01/17/19 12:44 Hx Obtained From: Patient Hx Last Menstrual Period: Onset/Duration: Started weeks ago, Still Present Timing: Constant Pain Intensity: 8 - pt calm and comfortable at bedside Pain Scale Used: 0-10 Numeric Character: Confusion Aggravating: Medication Change Associated Signs and Symptoms: Positive: Loss of Consciousness - with head trauma - Allergy/Home Medications Allergies/Adverse Reactions: Allergies Allergy/AdvReac Type Severity Reaction Status Date / Time amoxicillin [From Augmentin] Allergy Hives Verified 01/17/19 15:18 blueberry Allergy Hives/Diff. Verified 01/17/19 15:18 Breathing/I tching clavulanic acid Allergy Hives Verified 01/17/19 15:18 [From Augmentin] clindamycin Allergy Hives Verified 01/17/19 15:18 coconut Allergy Hives/Diff. Verified 01/17/19 15:18 Breathing/I tching codeine Allergy Altered Verified 01/17/19 15:18 Mental Status formoterol [From Dulera] Allergy Hives Verified 01/17/19 15:18 guaifenesin [From Mucinex] Allergy Unknown Verified 01/17/19 15:18 Reaction Details iohexol [From Omnipaque] Allergy Hives Verified 01/17/19 15:18 latex Allergy Hives Verified 01/17/19 15:18 lemon oil Allergy Vomiting Verified 01/17/19 15:18 metronidazole Allergy Hives Verified 01/17/19 15:18 morphine Allergy See Comment Verified 01/17/19 15:18 paroxetine [From Paxil] Allergy Swelling Verified 01/17/19 15:18 Penicillins Allergy Shortness Verified 01/17/19 15:18 of Breath sertraline [From Zoloft] Allergy Hives Verified 01/17/19 15:18 watermelon Allergy Hives/Diff. Verified 01/17/19 15:18 Breathing/I tching zonisamide Allergy Hives Verified 01/17/19 15:18 pickle Allergy Hives/Diff. Uncoded 01/17/19 15:18 Breathing/I tching PSEUDOEPHEDRINE Allergy Unknown Uncoded 01/17/19 15:18 Reaction Details PMH/Surg Hx/FS Hx/Imm Hx Previously Healthy: No Endocrine/Hematology History: Reports: Hx Diabetes - "pre diabetes", Hx Thyroid Disease, Hx Anemia Denies: Hx Unexplained Bleeding Cardiovascular History: Denies: Hx Aneurysm, Hx Angina, Hx Angioplasty, Hx Auto Implanted Cardiovert Defib, Hx Cardiac Arrest, Hx Cardiomegaly, Hx Congenital Heart Disease, Hx Congestive Heart Failure, Hx Coronary Artery Disease, Hx Deep Vein Thrombosis, Hx Embolism, Hx Hypercholesterolemia, Hx Hypotension, Hx Hypertension, Hx Myocardial Infarction, Hx Pacemaker/ICD, Hx Peripheral Vascular Disease, Hx Rheumatic Fever, Hx Syncope, Hx Valvular Heart Disease, Other Cardiovascular Problems/Disorders Respiratory History: Reports: Hx Asthma, Hx Chronic Bronchitis, Hx Chronic Obstructive Pulmonary Disease (COPD) Denies: Hx Cystic Fibrosis, Hx Lung Cancer, Hx Pleural Effusion, Hx Pneumonia , Hx Pulmonary Edema, Hx Pulmonary Embolism, Hx Seasonal Allergies, Hx Sleep Apnea, Other Respiratory Problems/Disorders GI History: Reports: Hx Gastroesophageal Reflux Disease - ON DAILY PROLOSEC Denies: Hx Gall Bladder Disease, Hx Gastrointestinal Bleed, Hx Ulcer, Hx Urosepsis History: Denies: Hx Kidney Stones, Hx Renal Disease Sensory History: Reports: Hx Contacts or Glasses Denies: Hx Cataracts, Hx Eye Injury, Hx Eye Prosthesis, Hx Glaucoma, Hx Legally Blind, Hx Macular Degeneration, Hx Vision Problem, Hx Deafness, Hx Hearing Aid, Hx Hearing Problem, Other Sensory Impairments Opthamlomology History: Reports: Hx Contacts or Glasses Denies: Hx Cataracts, Hx Eye Injury, Hx Eye Prosthesis, Hx Glaucoma, Hx Legally Blind, Hx Macular Degeneration, Hx Vision Problem, Other Sensory Impairments Neurological History: Reports: Hx Developmental Delay - 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 Mental health, Hx Bipolar Disorder Denies: Hx Post Traumatic Stress Disorder, Hx Schizophrenia, Hx Suicide Attempt, Hx Substance Abuse - Cancer History Cancer Type, Location and Year: seizure disorder - Surgical History Surgery Procedure, Year, and Place: Scalp Cystectomy May 2014, Abdominal Lipoma May 2014 Hx Anesthesia Reactions: No Infectious Disease History: No Infectious Disease History: Denies: Hx Clostridium Difficile, Hx Hepatitis, Hx Human Immunodeficiency Virus (HIV), Hx of Known/Suspected MRSA, Hx Shingles, Hx Tuberculosis, Hx Known/ Suspected VRE, Hx Known/Suspected VRSA, History Other Infectious Disease, Traveled Outside the [place] in Last 30 Days - Family History Known Family History: Positive: Cardiac Disease, Diabetes Negative: Renal Disease, Seizure Disorder - Social History Occupation: Unemployed Lives: Dormitory/Roommates Alcohol Use: None Hx Substance Use: No Substance Use Type: Reports: None Hx Tobacco Use: Yes Smoking Status (MU): Former Smoker Type: Cigarettes Have You Smoked in the Last Year: No Review of Systems Negative: Fever Musculoskeletal: Other - pos: head trauma Neurological: Other - pos: disoriented Positive: Syncope - LOC All Other Systems Reviewed And Are Negative: Yes Physical Exam - Summary Physical Exam Summary: VITAL SIGNS: Reviewed. GENERAL: Patient is a well-developed obese FEMALE who is lying comfortable in the stretcher. Patient is not in any acute respiratory distress. HEAD AND FACE: No signs of trauma. No ecchymosis, hematomas or skull depressions. No sinus tenderness. EYES: PERRLA, EOMI x 2, No injected conjunctiva, no nystagmus. EARS: Hearing grossly intact. Ear canals and tympanic membranes are within normal limits. MOUTH: Oropharynx within normal limits. NECK: Supple, trachea is midline, no adenopathy, no JVD, no carotid bruit, no c- spine tenderness, neck with full ROM. CHEST: Symmetric, no tenderness at palpation LUNGS: Clear to auscultation bilaterally. No wheezing or crackles. CVS: Regular rate and rhythm, S1 and S2 present, no murmurs or gallops appreciated. ABDOMEN: Soft, non-tender. No signs of distention. No rebound, no guarding, and no masses palpated. Bowel sounds are normal. EXTREMITIES: FROM in all major joints, no edema, no cyanosis or clubbing. NEURO: Alert and oriented x 3. No acute neurological deficits. Speech is normal and follows commands. SKIN: Dry and warm GCS: 15 Triage Information Reviewed: Yes Vital Signs On Initial Exam: Initial Vitals Temp Pulse Resp BP Pulse Ox 98.0 F 94 16 137/93 98 01/17/19 12:29 01/17/19 12:29 01/17/19 12:29 01/17/19 12:29 01/17/19 12:29 Vital Signs Reviewed: Yes Diagnostics - Vital Signs Vital Signs Temp Pulse Resp BP Pulse Ox 01/17/19 12:29 98.0 F 94 16 137/93 98 - Laboratory Result Diagrams: 01/17/19 13:13 01/17/19 13:13 Lab Statement: Any lab studies that have been ordered have been reviewed, and results considered in the medical decision making process. - Radiology CXR Radiology Interpretation Completed By: Radiologist Summary of Radiographic Findings: IMPRESSION: #. No evidence for acute intrathoracic disease. ED provider has reviewed this report. - CT BRAIN CT Interpretation Completed By: Radiologist Summary of CT Findings: IMPRESSION: Negative unenhanced head CT. - EKG 1126 Cardiac Rate: NL - 87 bpm EKG Rhythm: Sinus Rhythm Summary of EKG Findings: No ST elevation. Course/Dx - Course Assessment/Plan: This patient is a 38-year-old female who presents to the emergency department with chief complaint of having these episodes where I do not feel myself. Patient reports that she has history of seizures. She also reports that she went to the bathroom in the ED and she also balance fell and hit her head. She denies any loss of consciousness. Blood work without any significant abnormality except for glucose of 108, urinalysis negative for UTI. Urine toxicology is negative. Head CT impression: No acute pathology. Chest x-ray impression: No acute pathology. I discussed the case with Dr. Yadav and he recommends for the patient to just follow up as an outpatient. Patient was given meclizine for vertigo. At this point I discussed all the findings and test results with the patient. He was instructed to return to the emergency room immediately if any of the symptoms return or worsens. They understand and agree. Neurological exam before discharge: Patient is alert and oriented x 3. No acute neurological deficits. Patient vital signs are stable. Patient is to follow up with CPP in the next 2 3 days. They understand and agree. Plan of care was discussed with the patient and patient understands and agrees with the plan of care. All questions were answered at patient satisfaction. There were no further complaints or concerns. - Diagnoses Provider Diagnoses: Dizziness, History of seizure Discharge - Sign-Out/Discharge Documenting (check all that apply): Patient Departure - D/C Patient Received Moderate/Deep Sedation with Procedure: No - Discharge Plan Condition: Stable Disposition: HOME Patient Education Materials: Dizziness (ED) Referrals: Jose Bell NP [Primary Care Provider] - 3 Days Additional Instructions: RETURN TO THE ED FOR ANY WORSENING OR NEW SYMPTOMS. - Billing Disposition and Condition Condition: STABLE Disposition: Home - Attestation Statements Document Initiated by Sampson: Yes Documenting Scribe: Robert Monique Provider For Whom Dovibe is Documenting (Include Credential): Dr. Marito Shaikh MD Scribe Attestation: Robert Chavez scribed for Dr. Marito Shaikh MD on 01/17/19 at 1832. Scribe Documentation Reviewed: Yes Provider Attestation: The documentation as recorded by the Robert villalobos accurately reflects the service I personally performed and the decisions made by , Dr. Marito Shaikh MD Status of Scribe Document: Viewed
[2019-01-17 13:26] LABS: ABS Basophils 0.1 10^3/ul (0-0.2); ABS Eosinophils 0.2 10^3/ul (0-0.6); ABS Lymphocytes 2.1 10^3/ul (1.0-4.8); ABS Monocytes 0.5 10^3/ul (0-0.8); ABS Neutrophils 4.8 10^3/ul (1.5-7.7); ABS Nucleated RBC 0 10^3/ul; Eosinophil % 2.9 %; Hematocrit 39 % (35-47); Hemoglobin 13.2 g/dl (12.0-16.0); Mean Corpuscular HGB Conc 34 g/dl (31-36); Mean Corpuscular Hemoglobin 33 pg (27-31); Mean Corpuscular Volume 98 fL (80-97); Mean Platelet Volume 7.7 fL (7.4-10.4); Nucleated Red Blood Cells % 0; Platelet Count 290 10^3/ul (150-450); Red Blood Count 3.97 10^6/ul (4.00-5.40); Red Cell Distribution Width 14 % (10.5-15); White Blood Count 7.7 10^3/ul (3.5-10.8)
[2019-01-17 13:30] LABS: Urine Appearance Cloudy; Urine Bacteria Absent (Absent); Urine Bilirubin Negative (Negative); Urine Blood Negative (Negative); Urine Color Yellow; Urine Glucose Negative (Negative); Urine Ketones Negative (Negative); Urine Nitrite Negative (Negative); Urine Protein Negative (Negative); Urine Red Blood Cell Trace(0-2/hpf) (Absent); Urine Specific Gravity 1.017 (1.010-1.030); Urine Squamous Epithelial Cell Present (Absent); Urine Urobilinogen Negative (Negative); Urine White Blood Cell 1+(6-10/hpf) (Absent)
[2019-01-17 13:36] LABS: Activated Partial Thrombo Time 28.7 seconds (26.0-36.3); INR 0.96 (0.77-1.02)
[2019-01-17 13:42] LABS: ALT 14 U/L (7-52); AST 16 U/L (13-39); Albumin 4.1 g/dL (3.2-5.2); Albumin/Globulin Ratio 1.6 (1-3); Alkaline Phosphatase 69 U/L (34-104); Anion Gap 7 mmol/L (2-11); BUN/Creatinine Ratio 16.7 (8-20); Blood Urea Nitrogen 12 mg/dL (6-24); CO2 Carbon Dioxide 26 mmol/L (22-32); Calcium 9.2 mg/dL (8.6-10.3); Chloride 105 mmol/L (101-111); Creatine Kinase 84 U/L (10-223); EGFR African American 110.3 (>60); EGFR Non-African American 91.1 (>60); Globulin 2.6 g/dL (2-4); Glucose 108 mg/dL (70-100); Magnesium 1.8 mg/dL (1.9-2.7); Sodium 138 mmol/L (135-145); Total Protein 6.7 g/dL (6.4-8.9)
[2019-01-17 13:44] LABS: Barbiturates Urine Screen None Detected (None Detect); Benzodiazepine Urine Screen None Detected (None Detect); Urine Cannabinoids Screen None Detected (None Detect)
[2019-01-17 13:51] LABS: Alcohol < 10 mg/dL (<10)
[2019-01-17 14:04] LABS: TSH (Thyroid Stimulating Horm) 3.86 mcIU/mL (0.34-5.60)
[2019-01-17 15:06] LABS: HCG Pregnancy < 0.60 mIU/mL
[2019-01-17] MEDS ORDERED: Meclizine TAB* 12.5 MG ONE (15:14)
[2019-01-17] MEDS ORDERED: Meclizine TAB* 12.5 MG PO ONE (15:17)
[2019-01-17 16:26] VITALS: BP 143/87
== END 2019-01-17 16:25 | disposition home or self-care (01) ==
LOC: ED 12:27
DX: R42 Dizziness and giddiness (principal); R55 Syncope and collapse; G40.909 Epilepsy, unspecified, not intractable, without status epilepticus; S09.90XA Unspecified injury of head, initial encounter; W19.XXXA Unspecified fall, initial encounter; Y92.231 Patient bathroom in hospital as the place of occurrence of the external cause; E07.9 Disorder of thyroid, unspecified; J44.9 Chronic obstructive pulmonary disease, unspecified; K21.9 Gastro-esophageal reflux disease without esophagitis; F41.9 Anxiety disorder, unspecified; Z88.1 Allergy status to other antibiotic agents; Z91.041 Radiographic dye allergy status; Z91.040 Latex allergy status; Z88.5 Allergy status to narcotic agent; Z88.0 Allergy status to penicillin; Z88.8 Allergy status to other drugs, medicaments and biological substances; Z91.018 Allergy to other foods; Z87.891 Personal history of nicotine dependence
CPT/HCPCS: 36415; 70450; 71045; 80053; 80307; 80320; 81003; 81015; 82550; 83605; 83735; 84443; 84702; 85025; 85610; 85730; 87086; 93005; 96360; 96361; 99283; A9270-GY; G0480

== ENCOUNTER 2019-01-22 13:37 | Emergency (ER) | payer OTHER ==
[2019-01-22 13:52] VITALS: BP 143/72
--- OUTSIDE RECORDS SUMMARY | 2019-01-22 13:57 | XMS REPORT | Continuity of Care Document ---
:1980 External Reference #:[id number] Author Name Haven Mcnulty Care Team Providers Name Role Phone Donna Peguero M.D. Primary Care Physician Unavailable Payers Date Identification Numbers Payment Provider Subscriber Effective: Policy Number: [id number] Lit/Totalcare Dean Peng 2012 Medicaid PayID: [id number] [address] [address] [place] [address] Advance Directives Type Date Description Status Comment [...] Use Denies Drug Use Smoking Status Reviewed: 01/19/19 Patient is a former smoker Allergies, Adverse [...] Form Strength Qnty SIG Indications Ordering Provider Vitamin D3 01/19 Active Chewtabs 1000Unit 90uni take 1 R42 [facility] Adult Gummies /2019 ts chewtab Vega, MD daily Lamotrigine 01/15 Active Tablets 200mg 120ta Take 2 tabs bs PO in the , morning and M.D. take 2 tabs at bedtime Trueplus 12/31 Active Misc 30G 100un use to test Zsofia Lancets its Ray, Ultra Thin SPRING INSPECTOR Doxepin HCL 12/10 Active Capsules 10mg 120ca 4 capsules G43.909 ps every night , at bedtime M.D. Neomycin/Polymy 11/17 Active Solution 3.5-96413 10ml 2 drops in H60.93 Donna flora/Hydrocortis /2018 -1 affected ear Sudhir, one (Otic) twice a day MD for 5 days as needed Fluticasone 10/21 Active Suspension 50mcg/Act 16uni use 2 sprays J01.90 Zsofia Propionate ts in each Ray, nostril one SPRING INSPECTOR time a day Robitussin 12 10/21 Active Suer 30mg/5ML 89ml 5 R05 Hour Cough milliliters Peguero, Relief by mouth MD twice a day as needed Nasal [place] 10/21 Active Solution 0.05% 30ml 2 sprays J01.90 Zsofia Hour each nostril Ray, 2x daily as SPRING INSPECTOR needed for congestion True Focus Self 08/17 Active Strips 100un test blood Tawny Monitoring its twice daily MD Vega Blood Glucose Test Strips True Metrix Go 08/17 Active Kit w/Device 1unit use daily as Zsofia Blood Glucose s directed Ray, Meter last visit: SPRING INSPECTOR 08/19/18 Ventolin HFA 07/15 Active Aerosol 108(90Bas 8gm 2 puffs by J45.30 ofi e) mouth four Ray, mcg/Act times a day SPRING INSPECTOR as needed Guards 05/08 Active Misc 1unit use mouth K13.79 s guard at Ray, night SPRING INSPECTOR Vitamin C 05/08 Active Tablets 500mg 60tab take one D50.9 s tablet by Sudhir mouth twice MD a day Citalopram 03/12 Active Tablets 40mg 30tab take one Donna Hydrobromide s tablet by Sudhir mouth every day Ibuprofen 06/24 Active Tablets 800mg 90tab take one Zsofia s tablet three Ray, times daily SPRING INSPECTOR as needed. Omeprazole 09/[address] 20mg 30cap take one K21.9 Donna s capsule by Sudhir, mouth every MD day KP Cetirizine 03/31 Active Tablets 10mg 30tab 1 by mouth Zsofia HCL /2014 s every day Ray, SPRING INSPECTOR Albuterol 11/02 Active Nebulizer (2.5mg/3M 100un inhale the [facility] /2011 L) 0.083% its contents of Ebony Bonner, one vial via M.D.,FACP nebulizer every 4 to 6 hours as needed Levothyroxine Active Tablets 75mcg 90tab 1 by mouth E03.9 Donna Sodium /0000 s every day MD Sudhir Mucinex DM 12/31 Hx Tablets ER 30-600mg 60tab 1 by mouth Zsofi 12HR s twice a day Ray, - SPRING INSPECTOR 01/14 Freestyle 12/09 Hx Misc 100un 2 times Zsofia Lanc its daily and as Ray, - needed SPRING INSPECTOR 12/30 Doxycycline 10/22 Hx Capsules 100mg 20cap take 1 tab Zsofia Monohydrate /2017 s po bid for Ray, - 10 days SPRING INSPECTOR 11/17 Cefuroxime 10/21 Hx Tablets 250mg 14tab 1 tab by H66.92 Zsofia Axetil s mouth twice Ray, - a day for 7 SPRING INSPECTOR J01.90 Doxycycline 08/19/2018 - Hx Tablets 100mg 14tabs 1 tab by J01.90 Zsofia Monohydrate 11/17/2018 mouth twice Ray, SPRING INSPECTOR a day for 7 days Benzonatate 08/19/2018 - Hx Capsules 100mg 30caps take 1 tab R05 Zsofia 01/19/2019 by mouth Ray, SPRING INSPECTOR three times a day as needed for cough Breo Ellipta 08/11/2018 - Hx Aerosol 100-25m 30units inhale 1 Comfort 11/17/2018 cg/Inh puff by Cotton, M.D. mouth once daily Advair Diskus 07/21/2018 - Hx Aerosol 100-50m 60units inhale 1 [place] 08/11/2018 cg/Dose dose by Zackery mouth twice M.D. a day Flovent HFA 07/15/2018 - Hx Aerosol 44mcg/A 10.600g 2 act twice J45.30 Zsofia 07/21/2018 ct m a day daily MOSHE Bell for 2 week rinse after use Cephalexin 07/15/2018 - Hx Capsules 500mg 30caps take 1 tab L03.116 Zsofia 07/15/2018 three times MOSHE Bell a day for 10 days Sulfamethoxazole 07/15/2018 - Hx Tablets 800-160 14tabs 1 tab po L03.116 Zsofia /Trimethoprim DS 08/19/2018 mg bid x 7 MOSHE Bell days Meclizine HCL 03/10/2018 - Hx Tablets 25mg 90tabs take 1/2-1 H81.399 Zsofia 01/19/2019 tablet by MOSHE Bell mouth three times a day as needed Calcium 02/18/2018 - Hx Tablets 600-400 180tabs take one J00 Donna Peguero, Carbonate-Vitami 01/19/2019 mg-Unit tablet by MD maricel Simpson mouth twice a day with food Prednisone 01/21/2018 - Hx Tablets 10mg 20tabs 4 tabs Baldev Beck 01/29/2018 every day Bulger, for 2 days, Pablo,FACP then reduce by 1 tab every 2 days until finished Arnuity Ellipta 01/21/2018 - Hx Aerosol 100mcg/ 30units 1 puff Malu Beck 11/17/2018 Act inhaled Bulger, every day Telma.Ebony,FACP Calcium 10/20/2017 - Hx Tablets 600-400 180tabs [...] Hx Tablets 300-30m 10tabs 1 tab by Melani rosa #3 09/11/2017 g mouth q 6 hrs day as needed pain Zonisamide 07/18/2017 - Hx Capsules 100mg 60caps 2 tabs po G43.909 [place] S. 01/01/2018 qhs Pablo Yadav Doxycycline 06/18/2017 - Hx Capsules 100mg 14caps 1 cab twice R30.0 [place] Hyclate 07/17/2017 a day Pablo Vizcarra Nitrofurantoin [...] Tablets 12.5mg 60tabs 1-2 tab two H81.393 [place] 07/15/2018 times a day Pablo Vizcarra Levothyroxine [...] one by Baldev Beck 07/15/2018 mouth every Bulger, 8 hours as M.D.,FACP needed for nausea Clindamycin HCL 03/25/2017 - Hx Capsules 300mg 40caps 1 tabs by K05.00 Tanvir 04/10/2017 mouth every Pachikara, 6h M.D. Vicodin 03/25/2017 - Hx Tablets 5-300mg 20tabs 1 tab every K05.00 Tanvir 05/21/2017 12 hours Pablo Vizcarra Citalopram 03/17/2017 - Hx Tablets 10mg 30tabs Take One [place] Hydrobromide 03/12/2018 Tablet By Zackery, Mouth Every M.D. Day Along With 20 MG Tablet To Equal Total Daily Dose Of 30 MG Calcium 600+D 10/31/2016 - Hx Tablets 600-400 180tabs 1 tab by [address] 02/18/2018 mg-Unit mouth twice Zackery, a day take M.DBryant w/ meal Topiramate 10/17/2016 - Hx Tablets 100mg 75tabs 1 po qam G43.909 [place] SBryant 03/18/2017 and 1 1/2 luis manuel Yadav MBryantDBryant Robitussin 12 10/10/2016 - Hx Suer 30mg/5M 118ml 1-2 [address] [place] Hour Cough 11/17/2018 L teaspoon at [facility], Relief night as M.D. needed Naproxen 05/03/2016 - Hx Tablets 250mg 60tabs 1 tablet by M79.632 Jeremiah 05/13/2016 mouth twice Guinean, OIL PROSPECTING OBSERVER a day as needed pain, with foods Prednisone 03/26/2016 - Hx Tablets 20mg 5tabs 1 tablets J02.9 Jeremiah 05/03/2016 by mouth Guinean, OIL PROSPECTING OBSERVER daily x's 5 days in the morning Meclizine HCL 03/26/2016 - Hx Tablets 25mg 45tabs 1 tablet H81.319 Jeremiah 04/09/2016 tid every Guinean, OIL PROSPECTING OBSERVER 6-8 hours as needed Ventolin HFA 03/13/2016 - Hx Aerosol 108(90B 1units 2 puffs by Malu Beck 11/17/2018 ase) mouth four Bulger, mcg/Act times a day M.D.,FACP as needed Escitalopram 03/11/2016 - Hx Tablets 10mg 30tabs 1/2 tab po F33.9 Malu Beck Oxalate 03/14/2016 qd for 1 wk Kailey, then 1 by PabloFACJing mouth every day Venlafaxine HCL 02/22/2016 - Hx Tablets 37.5mg 22tabs 75 mg for 1 F33.9 Jeremiah 03/13/2016 week, then JANNIE Zendejas 37.5 mg for 1 week, then stop. Zofran Odt 01/01/2016 - Hx Tablets 4mg 12tabs 1 odt by R11.2 Jeremiah 01/02/2016 Dispers mouth every Guinean, OIL PROSPECTING OBSERVER 6 hours as needed nausea no more than 3 daily Drisdol 12/25/2015 - Hx Capsules [id number] 8caps 1 tab by Jeremiah 02/22/2016 it mouth once JANNIE Zendejas a week x's 8 weeks Nystop 12/20/2015 - Hx Powder 416451M 1units apply B37.2 Jeremiah 02/22/2016 nit/GM topically JANNIE Zendejas to rash twice a day until rash resolved Cefdinir 10/30/2015 - Hx Capsules 300mg 20caps 1 capsule J01.90 Jeremiah 11/09/2015 twice a day JANNIE Zendejas x's 10 days Ipratropium 10/30/2015 - Hx Solution 0.03% 1units instill 2 J01.90 Jeremiah Paul 11/13/2015 sprays in JANNIE Zendejas each nostril [...] Zsofia Lancets 08/16/2018 s once daily Ray, SPRING INSPECTOR and as needed Freestyle System 09/28/2015 - Hx Kit 250.02 Jeremiah 08/16/2018 Guinean, OIL PROSPECTING OBSERVER Freestyle Test 09/28/2015 - Hx Strips 100unit test strips Zsofia 08/16/2018 s use daily Ray, SPRING INSPECTOR as directed Topiramate 09/10/2015 - Hx Caps 25mg 90caps take 3 by G43.909 Clinton S. 10/17/2016 Sprinkle mouth at Leif, bedtime M.D. Naproxen 08/24/2015 - Hx Tablets 500mg 14tabs 1 tab by Jeremiah 11/13/2015 mouth every Guinean, OIL PROSPECTING OBSERVER 12 hours. prn Benzonatate 08/22/2015 - Hx Capsules 100mg 30caps 1 tab by R05 Zsofia 07/15/2018 mouth three Ray, SPRING INSPECTOR times a day as needed J00 [place] 07/05/2015 - Hx Tablets 7.5-325mg 6tabs 1 tab every Jeremiah 07/08/2015 6 hours up Guinean, to twice a OIL PROSPECTING OBSERVER day x3 days [place] 06/22/2015 - Hx Tablets 7.5-325mg 30tabs 1 tab every 522. Jeremiah 07/05/2015 6 hours prn 0 [place]ine[place], pain OIL PROSPECTING OBSERVER Nystatin 05/26/2015 - Hx Suspension [id number]/ 225ml swish and Jeremiah 06/05/2015 ML swallow 5ml [place], four times OIL PROSPECTING OBSERVER a day x's 10 days Clindamycin HCL 05/16/2015 - Hx Capsules 300mg 30caps 1 capsule 462 Jeremiah 05/26/2015 by mouth Guinean, three times OIL PROSPECTING OBSERVER a day x's 10 days Medrol (Tj) 05/16/2015 - Hx Tablets 4mg 1tabs take as 462 Jeremiah 05/26/2015 prescribed [place]inean, OIL PROSPECTING OBSERVER Amoxicillin 05/09/2015 - Hx Tablets 875mg 20tabs take one 380. Jeremiah 05/19/2015 tablet by 13 Guinean, mouth twice OIL PROSPECTING OBSERVER a day x's 10 days Cheratussin ac 05/09/2015 - Hx Syrup 100-10mg/5M 120ml 1-2 786. Jeremiah 05/19/2015 L teaspoon by 2 Guinean, mouth every OIL PROSPECTING OBSERVER 4 to 6 hours as needed cough Amoxicillin 03/06/2015 - Hx Tablets 875mg 14tabs take one 381. Jeremiah 03/17/2015 tablet by 4 Guinean, mouth twice OIL PROSPECTING OBSERVER a day x's 7 days Darlyn Allergy 03/06/2015 - Hx Tablets 180mg 30tabs 1 tab by 461. Jeremiah 03/17/2015 mouth daily 1 gustavo Zendejas's 4-6 OIL PROSPECTING OBSERVER weeks Zyrtec Allergy 02/10/2015 - Hx Capsules 10mg 30caps 1 by mouth [place] 02/14/2015 every day Bunny mckenzie M.D. Hydroxyzine HCL 02/02/2015 - Hx Tablets 25mg 2 tab by 698. Jeremiah 02/02/2015 mouth every 8 Guinean, 6 hours as OIL PROSPECTING OBSERVER needed for itching Ranitidine HCL 02/02/2015 - Hx Capsules 150mg 60caps 1 capsule 698. Jeremiah 03/06/2015 po bid 9 [place]inean, OIL PROSPECTING OBSERVER Darlyn Allergy 02/02/2015 - Hx Tablets 180mg 60tabs 2 tab by 698. [place] 02/10/2015 mouth daily 9 Bunny mckenzie M.D. Prednisone 02/02/2015 - Hx Tablets 10mg 30tabs 5 698. Jeremiah 02/12/2015 pillsx's2da 9 Guinean, ys, OIL PROSPECTING OBSERVER 4pillsx's2d ays, 3pillsx's2d ays, 2pillsx's2d ays,1pillx' s2days,then stop Hydroxyzine HCL 01/26/2015 - Hx Tablets 25mg 56tabs 2 tab by 698. Jeremiah 02/02/2015 mouth every 8 Guinean, 6 hours as OIL PROSPECTING OBSERVER needed for itching Triamcinolone 01/23/2015 - Hx Cream 0.1% 30G apply Jeremiah Acetonide 01/26/2015 topically Guine[place], twice a day OIL PROSPECTING OBSERVER to affected sites Lorazepam 01/16/2015 - Hx Tablets 0.5mg 15tabs 1 by mouth Claudia, 01/16/2015 tid as Jean Claude needed , DO Lorazepam 01/16/2015 - Hx Tablets 0.5mg 15tabs 1 by mouth Guinean, 01/16/2015 tid as Jeremiah needed OIL PROSPECTING OBSERVER Alprazolam 01/16/2015 - Hx Tablets 0.5mg 60tabs 1/2-1 tab Jeremiah 03/17/2015 by mouth Guinean, twice a day OIL PROSPECTING OBSERVER as needed Hydrocortisone 01/16/2015 - Hx Cream 1% 1tube apply tid Jeremiah Plus 01/26/2015 daily until Guinean, rash OIL PROSPECTING OBSERVER resolved Hydroxyzine HCL 01/13/2015 - Hx Tablets 25mg 56tabs 2 tab by 698. Jeremiah 01/16/2015 mouth every 8 Guinean, 6 hours as OIL PROSPECTING OBSERVER needed for itching Ranitidine 150 01/13/2015 - Hx Tablets 150mg 30tabs 1 tablet po 698. Jeremiah Maximum Strength 02/02/2015 qd until 8 Guinean, hives OIL PROSPECTING OBSERVER resolve Tudorza Pressair 01/13/2015 - Hx Aerosol 400mcg/Act 1units 1 493. Jeremiah 02/02/2015 inhalation 10 Guinean, po qd OIL PROSPECTING OBSERVER Alprazolam 01/05/2015 - Hx Tablets 0.5mg 20tabs 1 PO daily Jeremiah 01/16/2015 Dispers Guinean, OIL PROSPECTING OBSERVER Vitamin D 12/11/2014 - Hx Tablets 1000Unit 30tabs 1 by mouth J00 Jeremiah 10/31/2016 every day Guinean, OIL PROSPECTING OBSERVER Polytrim 12/07/2014 - Hx Solution 94993-2.1Un 1units 1 drop left 372. Jeremiah 12/12/2014 it/ML-% eye every 00 Guinean, four hours OIL PROSPECTING OBSERVER while awake x's 5 days Hydroxyzine HCL 10/11/2014 - Hx Tablets 25mg 56tabs 2 tab by 698. Jeremiah 01/13/2015 mouth every 8 Guinean, 6 hours as OIL PROSPECTING OBSERVER needed for itching Permethrin 10/11/2014 - Hx Cream 5% 1units apply from 133. Jeremiah 12/07/2014 neck to 0 Guinean, toes OIL PROSPECTING OBSERVER topically leave on 8-14 hours then bath off. repeat in 7 days. Clarithromycin 09/29/2014 - Hx Tablets 500mg 14tabs 1 tab po Jeremiah 10/06/2014 bid x's 7 Guinean, days OIL PROSPECTING OBSERVER Afrin 12 Hour 09/29/2014 - Hx Solution 0.05% 1units 2-3 sprays Jeremiah 12/07/2014 both nares Guinean, every 12 OIL PROSPECTING OBSERVER hours as needed rhinorhea Amoxicillin/Clavu 09/26/2014 - Hx Tablets 875-125mg 20tabs 1 tablet by 461. Jeremiah lanate Potassium 09/29/2014 mouth twice 9 Guinean, a day x's OIL PROSPECTING OBSERVER 10 days Cheratussin ac 09/26/2014 - Hx Syrup 100-10mg/5M 120ml 1-2 786. Jeremiah 10/01/2014 L teaspoon by 2 Guinean, mouth every OIL PROSPECTING OBSERVER 4 to 6 hours as needed cough Citalopram 08/30/2014 - Hx Tablets 20mg 30tabs Take One F33. Tanvir Hydrobromide 03/12/2018 Tablet By 9 Pachikar Mouth Every a, M.D. Day Along With 10 MG Tablet To Equal Total Daily Dose Of 30 MG Citalopram 08/22/2014 - Hx Tablets 40mg 30tabs 1 tablet po 311 Jeremiah Hydrobromide 08/30/2014 daily Guinean, OIL PROSPECTING OBSERVER Prednisone 08/18/2014 - Hx Tablets 20mg 10tabs 2 by mouth Unknown 09/26/2014 every day Cheratussin ac 08/18/2014 - Hx Syrup 100-10mg/5M 236ml 1-2 tsp by Jeremiah 09/26/2014 L mouth every Guinean, 4 to 6 OIL PROSPECTING OBSERVER hours as needed cough Zithromax 08/18/2014 - Hx Tablets 250mg 11tabs 1 tab take Unknown 09/26/2014 2 on day 1, then 1 daily Ferrous Gluconate 08/12/2014 - Hx Tablets 324(38Fe) 180tabs take one D50. Donna 01/19/2019 mg tablet by 9 Peguero, mouth twice MD daily Sertraline HCL 12/16/2013 - Hx Tablets [...] puff 493. Jeremiah 05/09/2015 Act inhaled 90 Guinean, twice a day OIL PROSPECTING OBSERVER Keppra 02/11/2013 - Hx Tablets 500mg 30tabs 1 po at 345. Clinton Pearce. 06/16/2013 bedtime 91 Pablo Yadav Spiriva 10/27/2012 - Hx Capsules 18mcg 30caps 1 780. Tanvir Handihaler 02/25/2013 inhalation 4 Pachikar po kris mckenzie M.D. Prednisone 09/28/2012 - Hx Tablets 10mg 30tabs 5tabx 493. Tanvir 10/27/2012 2days,4 90 Bunny [id number] Pablo mckenzie [id number], [id number], 1tabxday. Topamax 09/07/2012 - Hx Tablets 25mg 30tabs 1 tab PO hs 346. Tanvir 09/28/2012 92 Bunny mckenzie M.D. Lamotrigine 07/21/2012 - Hx Tablets 100mg 210tabs 3 by mouth Clinton S. 01/15/2019 every [place], morning and MarkusDBryant 4 every night at bedtime Symbicort 07/20/2012 [...] 18mcg 90caps 1 Jeremiah Handihaler 01/13/2015 inhalation Guinean, by mouth OIL PROSPECTING OBSERVER every morning Proair HFA - Hx Aerosol 108(90Base) 1units 2 puffs by Unknown 10/11/2014 mcg/Act mouth every 4 hours as needed Vitamin D3 - Hx Capsules [id number] 8caps 1 by mouth Unknown Maximum Strength 12/11/2014 every week Lorazepam - Hx Tablets 0.5mg 15tabs 1 by mouth Unknown 10/11/2014 tid as needed Cetirizine HCL - Hx Tablets 10mg 1 by mouth Unknown 08/17/2014 every day Omeprazole - Hx Capsules DR 40mg 30caps 1 by mouth Jeremiah 02/02/2015 every day JANNIE Zendejas Citalopram - Hx Tablets 20mg 30tabs 1 by mouth Unknown Hydrobromide 08/22/2014 every day Oxymetazoline HCL - Hx Solution 0.05% Unknown 10/11/2014 Hydroxyzine HCL - Hx Tablets 50mg 30tabs 1 po bid if Jeremiah 11/13/2015 needed JANNIE Zendejas Lorazepam - Hx Tablets 1mg 1 po q 8 Unknown 06/13/2015 to 12 hours as needed Citalopram - Hx Tablets 20mg Unknown Hydrobromide 03/02/2015 Acetaminophen - Hx Tablets 500mg 240tabs 2 tablets Jeremiah 10/29/2016 every 6-8 Guinean, hours as OIL PROSPECTING OBSERVER needed for pain Dulera - Hx Aerosol [...] 10/10/2016 teaspoon at l D. night as Bulger, needed M.D.,FAC P Ra Motion - Hx Tablets 25mg 30tabs take /2 Jeremiah Sickness Relief 04/08/2017 tab by Guinean, mouth three OIL PROSPECTING OBSERVER times daily if needed for vertigo Nitrofurantoin [...] Code Status Date Vaccine Reaction Lot # [id number] Given 08/19/2018 Influenza Virus Vaccine, [id number] Quadrivalent, Split, Preservative Free 96594 Given 07/28/2018 Influenza Virus Vaccine, Quadrivalent, Split, Preservative Free 51575 Given 07/28/2018 Influenza Virus Vaccine, Quadrivalent, Split, Preservative Free 33277 Given 01/21/2018 Influenza Virus Vaccine, [id number] Quadrivalent, Split, Preservative Free 19230 Given 10/16/2017 Pneumonia Vaccine no reaction, pt [id number] tolerated well Q2035 Given 10/16/2015 Afluria Vaccine 09371 Given 08/20/2012 Tdap - [id number] Tetanus/Diptheria/Acellula r Pertussis Q2038 Given 07/20/2012 Fluzone Vaccine [id number] Ordered 07/04/2016 Afluria Vaccine Vital Signs Date Vital Result Comment 01/19/2019 11:05am Height 67 inches 5'7" Weight 357.00 lb Heart Rate 91 /min BP Systolic Sitting 122 mmHg BP Diastolic Sitting 80 mmHg Body Temperature 97.3 F O2 % BldC Oximetry 98 % BMI (Body Mass Index) 55.9 kg/m2 01/15/2019 1:15pm Height 67 inches 5'7" Weight [...] Facility Test Result H/L Range Note Urine Drug 01/17/2019 [facility] Amphetamine Ur None Detected None Detect SCR ED & [address] [address] [phone] Barbiturates Urine Screen None Detected None Detect Benzodiazepine Urine Screen None Detected None Detect Urine Cannabinoids Screen None Detected None Detect Urine Cocaine Screen None Detected None Detect Urine Opiates Screen None Detected None Detect Urine Phencyclidine Screen None Detected None Detect 1 Urinalysis Profile 01/17/2019 [facility] Urine Color Yellow [address] [place], [place] [id number] [phone] Urine Appearance Cloudy Urine Specific [place] 1.017 N 1.010-1.030 Urine pH 6.0 N 5-9 Urine Urobilinogen Negative Negative Urine Ketones Negative Negative Urine Protein Negative Negative Urine Leukocytes 1+ Abnormal Negative Urine Blood Negative Negative * * Abnormal Negative 2 Urine Nitrite Negative Negative Urine Bilirubin Negative Negative Urine Glucose Negative Negative Urine White Blood Cell 1+(6-10/hpf) Abnormal Absent Urine Red Blood Cell Trace(0-2/hpf) Absent Urine Bacteria Absent Absent Urine Squamous Epithelial Cell Present Abnormal Absent Inr/Protime 01/17/2019 [facility] Inr 0.96 N 0.77-1.[address] [place] [address] [phone] Laboratory test 01/17/2019 [facility] Partial 28.7 seconds N 26.0-36.[address] [place] [address] PTT [phone] CBC Auto Diff 01/17/2019 [facility] White Blood 7.7 10^3/uL N 3.5-10.[address] [place] [address] [phone] Red Blood Count 3.97 10^6/uL Low 4.00-5.40 Hemoglobin 13.2 g/dL N 12.0-16.0 Hematocrit 39 % N 35-47 Mean Corpuscular Volume 98 fL High 80-97 Mean Corpuscular Hemoglobin 33 pg High 27-31 Mean Corpuscular HGB Conc 34 g/dL N 31-36 Red Cell Distribution Width 14 % N 10.5-15 Platelet Count 290 10^3/uL N 150-450 Mean Platelet Volume 7.7 fL N 7.4-10.4 Abs Neutrophils 4.8 10^3/uL N 1.5-7.7 Abs Lymphocytes 2.1 10^3/uL N 1.0-4.8 Abs Monocytes 0.5 10^3/uL N 0-0.8 Abs Eosinophils 0.2 10^3/uL N 0-0.6 Abs Basophils 0.1 10^3/uL N 0-0.2 Abs Nucleated RBC 0 10^3/uL Granulocyte % 62.4 % Lymphocyte % 27.0 % Monocyte % 6.5 % Eosinophil % 2.9 % Basophil % 1.2 % Nucleated Red Blood Cells % 0 Laboratory test 01/17/2019 [facility] Lactic Acid 1.8 mmol/L N 0.5-2.[address] [place] [address] [phone] Comp Metabolic 01/17/2019 [facility] Sodium 138 mmol/L N 135- [address] [place] [address] [phone] Potassium 4.0 mmol/L N 3.5-5.0 Chloride 105 mmol/L N 101-111 Co2 Carbon Dioxide 26 mmol/L N 22-32 Anion Gap 7 mmol/L N 2-11 Glucose 108 mg/dL High 70-100 Blood Urea Nitrogen 12 mg/dL N 6-24 Creatinine 0.72 mg/dL N 0.51-0.95 BUN/Creatinine Ratio 16.7 N 8-20 Calcium 9.2 mg/dL N 8.6-10.3 Total Protein 6.7 g/dL N 6.4-8.9 Albumin 4.1 g/dL N 3.2-5.2 Globulin 2.6 g/dL N 2-4 Albumin/Globulin Ratio 1.6 N 1-3 Total Bilirubin 0.40 mg/dL N 0.2-1.0 Alkaline Phosphatase 69 U/L N 34-104 Alt 14 U/L N 7-52 Ast 16 U/L N 13-39 Egfr Non- 91.1 >60 Egfr 110.3 >60 4 Laboratory test 01/17/2019 [facility] Magnesium 1.8 mg/dL Low 1.9-2.7 finding [address] [place] [address] [phone] Creatine Kinase(CK) 84 U/L N 10-223 Alcohol < 10 mg/dL N <10 TSH (Thyroid Stim Horm) 3.86 mcIU/mL N 0.34-5.60 HCG < 0.60 mIU/mL 5 Urine Culture And 01/17/2019 [facility] Urine Culture SEE RESULT [address] [place] [address] [phone] Laboratory test 01/04/2019 [facility] TSH (Thyroid 2.58 mcIU/mL N 0.34-5 [address] Stim Horm) .60 [place] [address] [phone] Lamotrigine (Lamictal) 11.2 g/mL 2.5 - 15.0 8 Comp Metabolic Panel 01/04/2019 [facility] Sodium 137 mmol/L N 135-[address] [place] [address] [phone] Potassium 4.1 mmol/L N 3.5-5.0 Chloride 105 [...] Egfr Non- 91.1 >60 Egfr 110.3 >60 9 CBC Auto Diff 01/04/2019 [facility] White Blood 6.9 10^3/uL N 3.5-10.[address] [place] [address] [phone] Red Blood Count 4.16 10^6/uL N 4.00-5.40 [...] % Nucleated Red Blood Cells % 0 Poc Urinalysis 01/04/2019 [facility] Poc Glucose, Negative Negative [address] Urine [place], [place] [id number] [phone] Poc Bilirubin, Urine Negative Negative Poc Ketone, Urine Negative Negative Poc Specific [place], Urine 1.020 N 1.010-1.030 Poc Blood, Urine 1+ Abnormal Negative Poc pH, Urine 7.5 N 5-9 Poc Protein, Urine Negative Negative Poc Urobilinogen, Urine 0.2 Negative Poc Nitrite, Urine Negative Negative Poc Leukocytes, Urine 3+ Abnormal Negative Poc Color, Urine Yellow Poc Clarity, Urine Clear 10 Urine Culture And 01/04/2019 [facility] Urine Culture SEE RESULT 11, [address] [place] [address] [phone] Laboratory test 12/29/2018 [facility] Fecal SEE RESULT [address] [address] (Stool WBC) [phone] CBC Auto Diff 12/05/2018 [facility] White Blood 8.4 N 3.5- [address] Count 10^3/uL 10.8 [place], [place] [id number] [phone] Red Blood Count 4.29 10^6/uL N 4.00-5.40 [...] Cells % 0 Comp Metabolic Panel 12/05/2018 [facility] Sodium 140 mmol/L N 135-145 [address] [place] [address] [phone] Potassium 4.4 mmol/L N 3.5-5.0 Chloride 105 [...] Egfr Non- 89.7 >60 Egfr 108.5 >60 14 Laboratory test 12/05/2018 [facility] Lipase < 10 U/L Low 11.0 -82.[address] [place] [address] [phone] HCG < 0.60 mIU/mL 15 Laboratory test 11/17/2018 [facility] Rapid Strep Negative Negative [address] [place] [address] [phone] Laboratory test 11/17/2018 [facility] Rapid Strep A SEE RESULT [address] [place] [address] [phone] Laboratory test 10/23/2018 [facility] Rapid Strep Negative Negative [address] [place] [address] [phone] Laboratory test 06/25/2018 [facility] TSH (Thyroid 3.56 mcIU/mL N 0.34-5.[address] Stim [place]) [place] [address] [phone] CBC Auto Diff 06/25/2018 [facility] White Blood 6.9 10^3/uL N 3.5-10.[address] [place] [address] [phone] Red Blood Count 3.80 10^6/uL Low 4.00-5.40 [...] % 0.1 Iron & Iron Binding 06/25/2018 [facility] Iron 52 g/dL N 50- [address] [place] [address] [phone] Unsaturated Iron Binding 280 g/dL Total Iron Binding Capacity 332 g/dL N 250-450 Transferrin 237 mg/dL N 203-362 % Iron Saturation 16 % N 15-55 Vitamin B12 And 05/01/2018 [facility] Vitamin B12 537 pg/mL N 180-914 19 Folate Serum [address] [place] [address] [phone] Folic Acid (Folate) 6.33 ng/mL >3.99 Laboratory test 05/01/2018 [facility] Ferritin 14.5 ng/mL N 11 -307 finding [address] [place] [address] [phone] CBC Auto Diff 05/01/2018 [facility] White Blood 4.7 10^3/uL N 3.5-10.[address] [place] [address] [phone] Red Blood Count 3.74 10^6/uL Low 4.00-5.40 [...] Blood Cells % 0 Lipid Profile 05/01/2018 [facility] Triglycerides 221 mg/dL 20 (Trig/Chol/HDL) [address] [place] [address] [phone] Cholesterol 171 mg/dL 21 HDL Cholesterol 26.6 mg/dL 22 LDL Cholesterol 100 mg/dL 23 Iron & Iron Binding 05/01/2018 [facility] Iron 32 g/dL Low 50-[address] [place] [address] [phone] Unsaturated Iron Binding 298 g/dL Total Iron Binding Capacity 330 g/dL N 250-450 Transferrin 236 mg/dL N 203-362 % Iron Saturation 10 % Low 15-55 Laboratory 05/01/2018 [facility] TSH (Thyroid 6.43 High 0.34- 5.[address] Stim Horm) mcIU/[place] [address] [phone] Lipid Profile 04/22/2018 [facility] Triglycerides 177 mg/dL 25 (Trig/Chol/HD [place]IVE L) [place] [address] [phone] Cholesterol 172 mg/dL 26 HDL Cholesterol 34.1 mg/dL 27 LDL Cholesterol 103 mg/dL 28 Laboratory test 04/22/2018 [facility] TSH (Thyroid 4.16 mcIU/mL N 0.34-5.[address] Stim [place]) [place] [address] [phone] CBC Auto Diff 04/22/2018 [facility] White Blood 7.5 10^3/uL N 3.5-10.8 [place] [address] [phone] Red Blood Count 3.55 10^6/uL Low 4.00-5.40 [...] Red Blood Cells % 0 Laboratory 04/10/2018 [facility] Rapid Strep Negative Negative 29 test finding [address] [place] [address] [phone] Laboratory 04/10/2018 [facility] Rapid Strep A SEE RESULT [address] [place] [address] [phone] Laboratory 04/02/2018 [facility] Lamotrigine 15.9 g/mL 2.5 - 15.[address] (Lamictal) [place] [address] [phone] Comp Metabolic 04/02/2018 [facility] Sodium 137 mmol/L Low 139 -[address] [place] [address] [phone] Potassium 4.0 mmol/L N 3.5-5.0 Chloride 104 [...] Egfr Non- 83.6 >60 Egfr 107.5 >60 32 Laboratory test 03/10/2018 [facility] Lamotrigine 13.1 g/mL 2.5 - [address] (Lamictal) 15.0 [place] [address] [phone] Laboratory test 08/25/2017 [facility] TSH (Thyroid 1.89 N 0.34 -5.[address] Stim Horm) mcIU/mL 0 [place] [address] [phone] Comp Metabolic 07/22/2017 [facility] Sodium 137 mmol/L N 133- [address] [place] [address] [phone] Potassium 4.1 mmol/L N 3.5-5.0 Chloride 105 [...] 72.2 N >60 Egfr 92.8 N >60 34 Laboratory test 07/22/2017 [facility] Hemoglobin A1c 5.2 % N Less than [address] (Glyco HGB) 6.0 [place] [address] [phone] Ua Routine 06/18/2017 [facility] Ua Specific 1.015 [place] Ua PH 6 Ua Color martín Ua Appera cloudy Ua WBC trace Ua Protein trace Ua Glucose neg Ua Ketones neg Ua Bilirubin neg Ua Urobilinogen neg Ua Nitrite neg Ua Occult Blood large Urine Culture And 06/18/2017 [facility] Urine Culture SEE RESULT [address] [place] [address] [phone] Laboratory test 04/08/2017 [facility] Thyroglobulin AB <1.8 IU/ mL N <4.0 [address] [place] [address] [phone] Thyroperoxidase AB 315.57 IU/mL High <9 Free T4 (Free Thyroxine) 0.67 ng/dL N 0.61-1.12 TSH (Thyroid Stim Horm) 4.16 mcIU/mL N 0.34-5.60 Comp Metabolic Panel 04/04/2017 [facility] Sodium 138 mmol/L N 133-[address] [place] [address] [phone] Potassium 3.7 mmol/L N 3.5-5.0 Chloride 107 [...] 86.6 N >60 Egfr 111.4 N >60 38 CBC Auto Diff 04/04/2017 [facility] White Blood 8.2 10^3/uL N 3.5-10.[address] [place] [address] [phone] Red Blood Count 3.94 10^6/uL Low 4.0-5.4 [...] Cells % 0 N Laboratory test 04/04/2017 [facility] Monospot Negative N Negative finding [address] [place] [address] [phone] Urinalysis Profile 04/04/2017 [facility] [place] [address] [phone] Urine Appearance Cloudy N Urine Specific [place] 1.019 N 1.010-1.030 Urine pH 7.0 N [...] Present Abnormal Absent Urine Culture And 04/04/2017 [facility] Urine Culture SEE RESULT [address] [place] [address] [phone] Laboratory test 04/04/2017 [facility] Lactic Acid 1.7 mmol/L N 0.5-[address]0 [place] [address] [phone] Rapid Strep A SEE RESULT BELOW 41 Laboratory test 04/04/2017 [facility] Magnesium 1.8 mg/dL Low 1.9-2.[address] [place] [address] [phone] Troponin-I (TnI) 0.00 ng/mL N <0.04 42 TSH (Thyroid Stim Horm) 6.69 mcIU/mL High 0.34-5.60 Laboratory 04/04/2017 [facility] Rapid Strep Negative N Negative 43 test finding [address] [place] [address] [phone] Laboratory 10/02/2016 [facility] Lamotrigine 12.6 g/mL N 2.5 - 15.[address] (Lamictal) [place] [address] [phone] Topomax (Topiramate) 2.3 g/mL N 45 CBC Auto Diff 10/02/2016 [facility] White Blood 6.9 10^3/uL N 3.5-10.[address] [place] [address] [phone] Red Blood Count 4.03 10^6/uL N 4.0-5.4 [...] % 0 N Comp Metabolic Panel 10/02/2016 [facility] Sodium 136 mmol/L N 133-[address] [place] [address] [phone] Potassium 3.8 mmol/L N 3.5-5.0 Chloride 108 [...] 74.5 N >60 Egfr 95.9 N >60 46 CBC Auto Diff 03/10/2016 [facility] White Blood 9.6 10^3/uL N 3.5-10.[address] [place] [address] [phone] Red Blood Count 4.58 10^6/uL N 4.0-5.4 [...] Cells % 0 N Laboratory test 03/10/2016 [facility] Partial 31.7 seconds N 26.0-36.[address] [place] [address] [phone] Lactic Acid 1.3 mmol/L N 0.5-2.0 47 Laboratory test 03/10/2016 [facility] HCG < 0.60 mIU/ mL N [address] [place] [address] [phone] TSH (Thyroid Stim Horm) 1.40 ?IU/mL N 0.34-5.60 B-Type Natriuretic Peptide BNP 18 pg/mL N 49 Lamotrigine (Lamictal) 14.9 g/mL N 2.5 - 15.0 50 Comp Metabolic Panel 03/10/2016 [facility] Sodium 137 mmol/L N 133-[address] [place] [address] [phone] Potassium 3.7 mmol/L N 3.5-5.0 Chloride 108 [...] 72.6 N >60 Egfr 93.4 N >60 51 Inr/Protime 03/10/2016 [facility] Inr 1.10 N 0.89-1.[address] [place] [address] [phone] Laboratory test 03/10/2016 [facility] Magnesium 2.2 mg/dL N 1.9-2.[address] [place] [address] [phone] Lipase 8 U/L Low 11.0-82.0 Creatine Kinase(CK) 63 U/L N 10-223 C Reactive Protein 14.41 mg/L High < 5.00 52 Troponin-I (TnI) 0.00 ng/mL N <0.03 53 CKMB 03/10/2016 [facility] CKMB ng/mL 1.1 ng/mL N 0.6-6.[address] [place] [address] [phone] Laboratory test 02/26/2016 [facility] Vitamin D 31.3 ng/mL N 30-[address] Total 25(Oh) [place] [address] [phone] Basic Metabolic 01/01/2016 [facility] Sodium 138 mmol/L N 133- [address] [place] [address] [phone] Potassium 4.0 mmol/L N 3.5-5.0 Chloride 108 mmol/L N 101-111 Co2 Carbon Dioxide 22 mmol/L N 22-32 Anion Gap 8 mmol/L N 2-11 Glucose 92 mg/dL N 70-100 Blood Urea Nitrogen 9 mg/dL N 6-24 Creatinine 0.75 mg/dL N 0.51-0.95 BUN/Creatinine Ratio 12.0 N 8-20 Calcium 9.2 mg/dL N 8.6-10.3 Egfr Non- 88.5 N >60 Egfr 113.8 N >60 54 Laboratory test 01/01/2016 [facility] Alkaline 78 U/L N 34- [address] [place] [address] [phone] CBC Auto Diff 01/01/2016 [facility] White Blood Count 8.8 N 3.5-10.[address] 10^3/[place] [address] [phone] Red Blood Count 4.00 10^6/uL N 4.0-5.4 [...] Cells % 0 N Laboratory test 12/25/2015 [facility] Vitamin D 25.9 ng/mL Low 30-50 [address] Total 25(Oh) [place], [place] [phone] TSH (Thyroid Stim Horm) 4.01 ?IU/mL N 0.34-5.60 56 Lipid Profile 12/25/2015 [facility] Triglycerides 214 mg/dL N 57 (Trig/Chol/HDL) [address] [place], [place] [phone] Cholesterol 177 mg/dL N 58 HDL Cholesterol 37.5 mg/dL N 59 LDL Cholesterol 97 mg/dL N 60 Laboratory test 12/25/2015 [facility] Glucose 98 mg/dL N 70- 100 [address] [place], [place] [phone] Laboratory test 12/20/2015 [facility] Cytology SEE RESULT [address] [place] [place], [place] [phone] HPV Rna Ww/Reflex Genotype Negative N Negative 63 Laboratory test 08/14/2015 [facility] Urine Culture And SEE RESULT [address] [place] [address] [phone] Laboratory test 08/14/2015 [facility] Beta HCG (BHCG) < 0.60 N finding [address] Quantitative mIU/[place] [address] [phone] Urinalysis 08/14/2015 [facility] Urine Color Yellow N Profile [address] [place] [address] [phone] Urine Appearance Cloudy N Urine Specific [place] 1.013 N 1.010-1.030 Urine pH 6.0 N [...] Present Abnormal Absent CBC Auto Diff 06/11/2015 [facility] White Blood 6.3 10^3/uL N 4.8-10.[address] [place] [address] [phone] Red Blood Count 4.38 10^6/uL N 4.0-5.4 [...] Cells % 0.1 N Laboratory test 06/11/2015 [facility] HCG Qualitative Negative N Negative [address] [place] [address] [phone] Urinalysis 06/11/2015 [facility] Urine Color Yellow N Profile [address] [place] [address] [phone] Urine Appearance Cloudy N Urine Specific [place] 1.026 N 1.010-1.030 Urine pH 5.0 N [...] Epithelial Cell Present Abnormal Absent Laboratory 06/11/2015 [facility] Lactic Acid 1.0 mmol/L N 0.5- 2.[address] [place] [address] [phone] Urine Drug SCR 06/11/2015 [facility] Amphetamine Ur None N None Detect ED & Pain [address] [place] [address] [phone] Barbiturates Urine Screen None Detected N None Detect Benzodiazepine Urine Screen None Detected N None Detect Urine Cannabinoids Screen None Detected N None Detect Urine Cocaine Screen None Detected N None Detect Urine Opiates Screen Presumptive Posi <SEE NOTE> Abnormal None Detect 66 Urine Phencyclidine Screen None Detected N None Detect 67 Laboratory test 06/11/2015 [facility] Lamotrigine 11.0 g/mL N 2.5 - [address] (Lamictal) 15.0 [place] [address] [phone] Urine Culture And Sensitivities SEE RESULT BELOW 69 Laboratory test 05/16/2015 [facility] Culture SEE RESULT [address] [place] [address] [phone] CBC Auto Diff 03/16/2015 [facility] White Blood 8.6 10^3/uL N 4.8-[address] Count .8 [place] [address] [phone] Red Blood Count 4.41 10^6/uL N 4.0-5.4 [...] Cells % 0 N Laboratory test 03/16/2015 [facility] Monospot Negative N Negative [address] [place] [address] [phone] CBC Auto Diff 03/09/2015 [facility] White Blood 6.8 10^3/uL N 4.8-10.[address] [place] [address] [phone] Red Blood Count 4.28 10^6/uL N 4.0-5.4 [...] % 0 N Comp Metabolic Panel 03/09/2015 [facility] Sodium 136 mmol/L N 133-145 [address] [place] [address] [phone] Potassium 4.0 mmol/L N 3.5-5.0 Chloride 107 [...] 91.8 N >60 Egfr 118.1 N >60 72 Urinalysis Profile 02/16/2015 [facility] Urine Color Yellow N [address] [place] [address] [phone] Urine Appearance Cloudy N Urine Specific [place] 1.017 N 1.010-1.030 Urine pH 6.0 N [...] Present Abnormal Absent Urine Culture And 02/16/2015 [facility] Urine (SEE NOTE) [address] [place] [address] [phone] CBC Auto Diff 02/16/2015 [facility] White Blood 11.5 High 4.8- [address] Count 10^3/uL 0.8 [place] [address] [phone] Red Blood Count 4.32 10^6/uL N 4.0-5.4 [...] % 0 N Comp Metabolic Panel 02/16/2015 [facility] Sodium 139 mmol/L N 133-[address] [place] [address] [phone] Potassium 4.3 mmol/L N 3.5-5.0 Chloride 106 [...] 90.4 N >60 Egfr 116.2 N >60 74 Laboratory test 02/16/2015 [facility] Magnesium 2.0 mg/dL N 1.9-2.[address] [place] [address] [phone] TSH (Thyroid Stimulating Horm) 1.87 IU/mL N 0.34-5.60 Lamotrigine 7.8 g/mL N 2.5 - 15.0 75 CBC Auto 02/14/2015 [facility] White Blood 13.0 10^3/uL High 4.8-10.[address] [place] [address] [phone] Red Blood Count 4.32 10^6/uL N 4.0-5.4 [...] % 0.1 N Comp Metabolic Panel 02/14/2015 [facility] Sodium 136 mmol/L N 133-[address] [place] [address] [phone] Potassium 4.5 mmol/L N 3.5-5.0 Chloride 103 [...] 83.8 N >60 Egfr 107.8 N >60 76 Laboratory test 01/26/2015 [facility] Surgical RUN DATE: [address] Pathology 02/02/ [place] [address] <SEE NOTE> [phone] Surgical 01/26/2015 [facility] S RUN DATE: [address] 02/02/ [place] [address] <SEE NOTE> [phone] Laboratory test 12/28/2014 [facility] Lamotrigine 12.4 N 2.5 [address] g/[place] [address] [phone] [phone] Laboratory test 12/07/2014 [facility] Lamotrigine 9.5 g/mL N 2.5 [address] [place] [address] 15.0 [phone] Vitamin D 1,25 12/07/2014 [facility] Vitamin D 98 pg/mL Abnormal 18-7 81 And Vitamin D,[address] 1,25-Dihydroxy 8 [place] [address] [phone] Vitamin D, 25 12/07/2014 [facility] 25-Hydroxy 73 ng/mL N Hydroxy [address] Vitamin D2 [place] [address] [phone] 25-Hydroxy Vitamin D3 6.3 ng/mL N 25-Hydroxy Vitamin D Total 79 ng/mL N 82 Laboratory test 12/07/2014 [facility] Hemoglobin A1c 5.1 5-7 finding Vitamin D, 25 Hydroxy 08/10/2014 25-Hydroxy Vitamin D2 41 ng/mL N 83 25-Hydroxy Vitamin D3 6.3 ng/mL N 25-Hydroxy Vitamin D Total 47 ng/mL N 84 Iron & Iron Binding Capacity 08/10/2014 Iron 46 g/dL Low 50-212 Unsaturated Iron Binding 361 g/dL N Total Iron Binding Capacity 407 g/dL N 250-450 % Iron Saturation 11 % Low 15-55 Laboratory test finding 08/10/2014 Ferritin < 10.0 ng/mL Low 11-307 85 Vitamin B12 460 pg/mL N 180-914 86 Folate 11.39 ng/mL N >3.99 87 Laboratory test 08/10/2014 TSH (Thyroid 2.24 IU/mL N 0.34-5.60 88 finding Stimulating Horm) CBC Auto Diff 08/10/2014 [...] Cells % 0.1 N Lipid Panel - [facility] 08/10/2014 Creatine Kinase 76 U/L N 10-223 89 Comp Metabolic Panel 08/10/2014 Sodium 137 mmol/L [...] 83.1 N >60 Egfr 106.9 N >60 90 Lipid Profile (Trig/Chol/HDL) 08/10/2014 Triglycerides 150 mg/dL N 91 Cholesterol 159 mg/dL N 92 HDL Cholesterol 26.7 mg/dL N 93 LDL Cholesterol 102 mg/dL N 94 Comp Metabolic Panel 01/10/2014 [facility] Sodium 139 mmol/L 133-[address] [place] [address] [phone] Potassium 3.9 mmol/L 3.7-5.6 Chloride 107 mmol/L [...] Egfr Non- 88.2 >60 Egfr 113.4 >60 95 CBC Auto Diff 01/10/2014 [facility] White Blood 8.7 10^3/uL 4.8-10.[address] [place] [address] [phone] Red Blood Count 4.28 10^6/uL 4.0-5.4 Hemoglobin [...] Blood Cells % 0 Laboratory test 10/28/2013 [facility] Lamotrigine 8.4 g/mL 2.5 - 15.0 [address] [place] [address] [phone] Laboratory test 09/01/2013 [facility] Lamotrigine 7.6 g/mL 2.5 - 15.0 [address] [place] [address] [phone] Laboratory test 05/29/2013 [facility] Lamotrigine 10.9 g/mL 2.5 - 15.0 [address] [place] [address] [phone] Urine Culture 05/28/2013 [facility] Urine Culture (SEE NOTE) [address] [place] [address] [phone] Laboratory test 12/15/2012 [facility] Lamotrigine 5.2 g/mL 2.5 - 15.0 100 finding [address] [facility] [address] [phone] Laboratory test 10/22/2012 [facility] Serum Negative Negative [address] [place] [address] [phone] Urine Culture 10/22/2012 [facility] Urine Culture (SEE NOTE) [address] [place] [address] [phone] Throat-Beta 09/25/2012 [facility] Throat Beta (SEE NOTE) [address] [place] [address] [phone] Laboratory test 09/03/2012 [facility] Lamotrigine 3.9 g/mL 2.5 - 15.0 104 finding [address] [place] [address] [phone] Comp Metabolic 07/14/2012 [facility] Sodium 138 mmol/L 135- [address] [place] [address] [phone] Potassium 4.3 mmol/L 3.5-5.0 Chloride 106 mmol/L 101-111 Co2 (Carbon Dioxide) 28.0 mmol/L 22-32 Anion Gap 4.0 mmol/L 2-11 105 Glucose 93 mg/dL 70-100 BUN 10 mg/dL 6-24 Creatinine 0.8 mg/dL 0.50-1.40 One Over Creatinine 1.25 BUN/Creatinine Ratio 12.5 8-20 Calcium 9.4 mg/dL 8.1-9.9 Total Protein 6.8 GM/DL 6.2-8.1 Albumin 3.9 GM/DL 3.6-5.4 Globulin 2.9 GM/DL 2-4 Albumin/Globulin Ratio 1.3 1-3 Bilirubin Total 0.5 mg/dL 0.4-1.5 106 Alkaline Phosphatase 59 U/L 30-110 Alt (SGPT) 16 U/L 14-54 Ast (Sgot) 19 U/L 12-42 eGFR Non- 84.2 > 60 eGFR 108.3 > 60 107 CBC No Diff 07/14/2012 [facility] White Blood Count 8.2 CUMM 4.8-10.[address] [place] [address] [phone] Red Cell Count 3.83 CUMM Low 4.2-5.4 Hemoglobin 12.3 g/dL 12.0-16.0 Hematocrit 37 % 35-47 Mean Corpuscular Volume 96 um3 79-97 Mean Corpuscular Hemoglob 32 pg High 27-31 Mean Corpuscular HGB Cone 34 g/dL 32-36 Redcell Distribution WDTH 15 % 10.5-15 Platelet Count 312 CUMM 150-450 Mean Platelet Volume 8.6 um3 7.4-10.4 Laboratory test 07/14/2012 [facility] Lamotrigine 3.8 g/mL 2.5 - [address] 15[address]0 [place] [address] [phone] 1 The urine specimen was tested at the listed cutoffs: Drug class test level (ng/mL) Amphetamines 500 Barbiturates 200 Benzodiazepine metabolites 200 Cocaine metabolites 150 Cannabinoids 50 Opiates 300 Pcp 25 Specimen was received without chain of custody. Results should be used for medical purposes only. 2 *Ascorbic acid is present which may interfere with detection of blood. 3 [facility] Severe Sepsis and Septic Shock Management Bundle Measure requires all lactic acids initially measuring >2.0 mmol/L be repeated. 4 Because ethnic data is not always [...] 5 Kidney failure <15 (or dialysis) 5 <5.0 Negative 5.0 - 25.0 Indeterminate (Repeat testing recommended after 72 hours) >25.0 Positive Perimenopausal women can display HCG levels of up to 20 mIU/mL 6 SEE RESULT BELOW Name: DEAN PENG : [address]: Marito Shaikh MD Acct: [id number] Unit: [id number] AGE: 38 Location: ED Re01/17/19 SEX: F Status: DEP ER SPEC: [id number] DEBBIE: 01/17/[address] [facility] [address]: Marito Shaikh MD REQ: [id number] RECD: 01/17/19 STATUS: TOMASA COCHRAN DR: Jose Bell OIL PROSPECTING OBSERVER _ SOURCE: URINE SPDESC: ORDERED: Urine Culture Procedure Result Reported Site Urine Culture Final 01/18/19- 1216 ML No growth of clinically significant organisms * ML - Main Lab . END OF REPORT DEPARTMENT OF PATHOLOGY, [address] [place] [address] Ty Guo M.D. Director [facility] # [id number] ADDITIONAL INFORMATION This test was developed and its performance characteristics determined by [facility] in a manner consistent with CLIA requirements. This test has not been cleared or approved by the U.S. Food and Drug Administration. Test Performed by: [facility] [address] [place] [address] 9 Because ethnic data is not always readily [...] 15-29 5 Kidney failure <15 (or dialysis) 10 Development Mechanic: [id number] 12 SEE RESULT BELOW Name: DEAN PENG : [address]: Kenrick Duran MD Acct: [id number] Unit: [id number] AGE: 38 Location: [facility] Re01/04/19 SEX: F Status: DEP JOJO SPEC: [id number] DEBBIE: 01/04/19-[address] [facility] [address]: Kenrick Duran MD REQ: [id number] RECD: 01/04/191602 STATUS: TOMASA COCHRAN DR: Jose Bell OIL PROSPECTING OBSERVER _ SOURCE: URINE SPDESC: ORDERED: Urine Culture COMMENTS: [id number] Procedure Result Reported Site Urine Culture Final 01/05/19- 1222 ML No growth of clinically significant organisms * ML - Main Lab . END OF REPORT DEPARTMENT OF PATHOLOGY, [address] [place] [address] Ty Guo M.D. Director [facility] # [id number] 13 SEE RESULT BELOW Name: DEAN PENG : [address]: Kyree Gutierrez MD Acct: [id number] Unit: [id number] AGE: 38 Location: [facility] Re12/29/18 SEX: F Status: DEP ER SPEC: [id number] DEBBIE: 12/29/[address]: Kyree Gutierrez MD REQ: [id number] RECD: 12/29/18 STATUS: TOMASA COCHRAN DR: Jose Bell OIL PROSPECTING OBSERVER _ SOURCE: STOOL SPDESC: ORDERED: Fecal Lactoferr Procedure Result Reported Site Stool Specimen Description Final 12/29/18- 1856 ML Stool Color Yellow Stool Form Nonformed Stool Consistency Liquid Fecal Lactoferrin (Stool WBC) Final 12/29/18- 1856 ML Fecal Lactoferrin Negative by Immunoassay TEST LIMITATIONS: Assay detects elevated levels of lactoferrin released from fecal leukocytes as a marker of intestinal inflammation. The test may not be appropriate in immunocompromised persons. Fecal samples from breast fed infants should not be used with this assay. * ML - Main Lab . END OF REPORT DEPARTMENT OF PATHOLOGY, [address] [place] [address] Ty Guo M.D. Director [facility] # [id number] 14 Because ethnic data is not always [...] 5 Kidney failure <15 (or dialysis) 15 <5.0 Negative 5.0 - 25.0 Indeterminate (Repeat testing recommended after 72 hours) >25.0 Positive Perimenopausal women can display HCG levels of up to 20 mIU/mL 16 Development Mechanic: [id number] 17 SEE RESULT BELOW Name: DEAN PENG : [address]: Donna Peguero MD Acct: [id number] Unit: [id number] AGE: 38 Location: [facility] Re11/17/18 SEX: F Status: REG REF SPEC: [id number] DEBBIE: 11/17/18[address] [facility] [address]: Donna Peguero MD REQ: [id number] RECD: 11/17/18 STATUS: COMP _ SOURCE: THROAT SPDESC: ORDERED: Strep A Request COMMENTS: [id number] Procedure Result Reported Site Rapid Strep A Request Final 11/17/181848 ML Specimen received for Rapid Strep A Molecular testing * ML - Main Lab . END OF REPORT DEPARTMENT OF PATHOLOGY, [address] [place] [address] Ty Guo M.D. Director [facility] # [id number] 18 Development Mechanic: [id number] Normal Range 180 to 914 Indeterminate Range 145 to 180 Deficient Range <145 20 Desirable: <150 Borderline High: 150-199 High: 200-499 Very High: >500 21 Desirable: <200 Borderline High: 200-239 High: >239 22 Low: <40 Desirable: 40-60 High: >60 23 Desirable: <100 Near Optimal: 100-129 Borderline High: 130-159 High: 160-189 Very High: >189 24 FASTING 10 HOUR 25 Desirable: <150 Borderline High: 150-199 High: 200-499 Very High: >500 26 Desirable: <200 Borderline High: 200-239 High: >239 27 Low: <40 Desirable: 40-60 High: >60 28 Desirable: <100 Near Optimal: 100-129 Borderline High: 130-159 High: 160-189 Very High: >189 29 Development Mechanic: [id number] 30 SEE RESULT BELOW Name: DEAN PENG : [address]: Cydney Chen MD Acct: [id number] Unit: [id number] AGE: 37 Location: ED Re04/10/18 SEX: F Status: REG ER SPEC: [id number] DEBBIE: 04/10/[address]: Cydney Chen MD REQ: [id number] RECD: 04/10/18 STATUS: COMP OTHR DR: Tanvir Vizcarra MD _ SOURCE: THROAT SPDESC: ORDERED: Strep A Request Procedure Result Reported Site Rapid Strep A Request Final 04/10/18- 023 ML Specimen received for Rapid Strep A Molecular testing * ML - Main Lab . END OF REPORT DEPARTMENT OF PATHOLOGY, [address] [place] [address] Ty Guo M.D. Director [facility] # [id number] 31 ADDITIONAL INFORMATION This test was developed and its performance characteristics determined by [facility] in a manner consistent with CLIA requirements. This test has not been cleared or approved by the U.S. Food and Drug Administration. Test Performed by: [facility] [address] [place] [address] 24 Because ethnic data is not always readily [...] 5 Kidney failure <15 (or dialysis) 33 ADDITIONAL INFORMATION This test was developed and its performance characteristics determined by [facility] in a manner consistent with CLIA requirements. This test has not been cleared or approved by the U.S. Food and Drug Administration. Test Performed by: [facility] [address] [place] [address] 34 Because ethnic data is not always readily [...] 15-29 5 Kidney failure <15 (or dialysis) 35 Therapeutic target for the treatment of diabetes Mellitus patients is <7% HBA1C, and in selective patients <6.0%.Please refer to [place] [employer] Diabetic care guidelines for further information. 36 SEE RESULT BELOW Name: DEAN PENG Lee : [address]: Tanvir Vizcarra MD Acct: [id number] Unit: [id number] AGE: 36 Location: [facility] Re06/18/17 SEX: F Status: REG REF SPEC: [id number] DEBBIE: 06/18/17-[address]: Tanvir Vizcarra MD REQ: [id number] RECD: 06/18/17 STATUS: COMP _ SOURCE: URINE SPDESC: ORDERED: Urine Culture COMMENTS: [id number] Urine Source: Random Procedure Result Reported Site Urine Culture Final 06/19/17- 1623 ML No growth of clinically significant organisms * ML - MAIN LAB ([facility]) . END OF REPORT * ML=Testing performed at Main Lab DEPARTMENT OF PATHOLOGY, [address] [place] [address] Ty Guo M.D. Director [facility] # [id number] 37 ADDITIONAL INFORMATION The thyroglobulin antibody testing method is an immunoenzymatic assay manufactured by [employer]. and performed on the PASSNFLY DXI 800. Values obtained from different assay methods or kits may be different and cannot be used interchangeably. The results cannot be interpreted as absolute evidence for the presence or absence of malignant disease. Test Performed by: [address] [address] 38 Because ethnic data is not always readily [...] 15-29 5 Kidney failure <15 (or dialysis) 39 SEE RESULT BELOW Name: DEAN PENG : [address]: Vance Garnett DO Acct: [id number] Unit: [id number] AGE: 36 Location: ED Re04/04/17 SEX: F Status: DEP ER SPEC: [id number] DEBBIE: 04/04/17-[address]: Vance Garnett DO REQ: [id number] RECD: 04/04/17 STATUS: TOMASA COCHRAN DR: [facility] Baldev Bonner MD _ SOURCE: URINE SPDESC: ORDERED: Urine Culture Procedure Result Reported Site Urine Culture Final 04/06/17- 0920 ML No growth of clinically significant organisms * ML - MAIN LAB ([facility]) . END OF REPORT * ML=Testing performed at Main Lab DEPARTMENT OF PATHOLOGY, [address] [place] [address] Ty Guo M.D. Director [facility] # [id number] 40 [facility] Severe Sepsis and Septic Shock Management Bundle Measure requires all lactic acids initially measuring >2.0 mmol/L be repeated. 41 SEE RESULT BELOW Name: DEAN PENG Lee : [address]: Scooter Moore [facility] Acct: [id number] Unit: [id number] AGE: 36 Location: ED Re04/04/17 SEX: F Status: REG ER SPEC: [id number] DEBBIE: 04/04/17-[address]: Vance Garnett DO REQ: [id number] RECD: 04/04/17 STATUS: TOMASA COCHRAN DR: [facility] Baldev Bonner MD _ SOURCE: THROAT SPDES: ORDERED: Strep A Request Procedure Result Reported Site Rapid Strep A Request Final 04/04/171046 ML Specimen received for Rapid Strep A Molecular testing * ML - MAIN LAB ([facility]) . END OF REPORT * ML=Testing performed at Main Lab DEPARTMENT OF PATHOLOGY, [address] [place] [address] Ty Guo M.D. Director [facility] # [id number] 42 99th percentile=0.04 ng/mL Troponin results at [facility] and [facility] are not interchangeable. 43 Development Mechanic: [id number] 44 ADDITIONAL INFORMATION This test was developed and its performance characteristics determined by [facility] in a manner consistent with CLIA requirements. This test has not been cleared or approved by the U.S. Food and Drug Administration. Test Performed by: [facility] [place] [address] Copywriter: Kenrick Hightower II, M.D., Ph.D. 45 REFERENCE VALUE Reference values depend on clinical use: Anticonvulsant: 5.0-20.0 mcg/mL Psychiatric: 2.0-8.0 mcg/mL ADDITIONAL INFORMATION This test was developed and its performance characteristics determined by [facility] in a manner consistent with CLIA requirements. This test has not been cleared or approved by the U.S. Food and Drug Administration. Test Performed by: [facility] [place] [address] Copywriter: Kenrick Hightower II, M.D., Ph.D. 46 Because ethnic data is not always readily [...] 15-29 5 Kidney failure <15 (or dialysis) 47 [facility] Severe Sepsis and Septic Shock Management Bundle Measure requires all lactic acids initially measuring >2.0 mmol/L be repeated. 48 <5.0 Negative 5.0 - 25.0 Indeterminate (Repeat testing recommended after 72 hours) >25.0 Positive Perimenopausal women can display HCG levels of up to 20 mIU/mL 49 >100 to <200 pg/mL: likely compensated congestive heart failure (CHF) 200 to 400 pg/mL: likely moderate CHF >400 pg/mL: likely moderate to severe CHF 50 Test Performed by: [place] [address] Copywriter: Kenrick Hightower II, M.D., Ph.D. 51 Because ethnic data is not always readily [...] 15-29 5 Kidney failure <15 (or dialysis) 52 Acute inflammation: >10.00 53 Reference Range and Interpretation: TnI (ng/mL) Interpretation Less Than 0.03 ng/mL Not supportive of diagnosis of CA 0.03 - 0.50 ng/mL Indeterminate: suggest serial studies if clinically indicated. Greater than 0.5 ng/mL Consistent with diagnosis of CA 54 Because ethnic data is not always [...] 5 Kidney failure <15 (or dialysis) 55 FASTING 10 HOUR 56 FASTING 10 HOUR 57 Desirable <150 Borderline high 150-199 High 200-499 Very High >500 58 Desirable <200 Borderline high 200-239 High >239 59 Low <40 Desirable: 40-60 High: >60 60 Desirable: <100 mg/dL Near Optimal: 100-129 mg/dL Borderline High: 130-159 mg/dL High: 160-189 mg/dL Very High: >189 mg/dL 61 FASTING 10 HOUR 62 SEE RESULT BELOW Name: DEAN PENG : [address]: Jeremiah Zendejas OIL PROSPECTING OBSERVER Acct: [id number] Unit: [id number] AGE: 35 Location: [facility] Re12/20/15 SEX: F Status: REG REF SPEC: [id number] DEBBIE: 12/20/15-[address]: Jeremiah Zendejas OIL PROSPECTING OBSERVER REQ: [id number] RECD: 12/20/15125 STATUS: SOUT _ ORDERED: IMAGE ANALYSIS, HPV/Thin [...] was evaluated with the assistance of the Super Vitamin DPrep Test Imaging System. Due to cytologic findings at the die forger microscope, comprehensive manual rescreening by a Arboreal Scientist may be required. The Pap Smear is [...] evaluated every 1-3 years. RUN DATE: 12/22/15 [facility] LAB LIVE PAGE 1 Patient: DEAN PENG [id number] (Continued) CONTINUED ON NEXT PAGE * ML=Testing performed at Main Lab DEPARTMENT OF PATHOLOGY, [address] [place] [address] Ty Guo M.D. Director [facility] # [id number] 63 The high-risk HPV types detected by the assay include: 16, 18, 31, 33, 35, 39, 45, 51, 52, 56, 58, 59, 66, and 68. 64 SEE RESULT BELOW Name: CALLIECARIDADDEAN Lee : [address]: Jeremiah Zendejas NP Acct: [id number] Unit: [id number] AGE: 34 Location: LAB Re08/14/15 SEX: F Status: REG REF SPEC: [id number] DEBBIE: 08/14/15-[address]: Jeremiah Zendejas NP REQ: [id number] RECD: 08/14/15 STATUS: COMP _ SOURCE: URINE SPDESC: ORDERED: Urine Culture Procedure Result Verified Site Urine Culture Final 08/16/15- 1127 ML Organism 1 NORMAL JUDE Realitos Count 25-50,000 (Moderate) CFU/ML * ML - [facility] ([facility]) . END OF REPORT * ML=Testing performed at Main Lab DEPARTMENT OF PATHOLOGY, [address] [place] [address] Ty Guo M.D. Director [facility] # [id number] 65 Comment: f 66 Presumptive Positive 67 The urine specimen was tested at the listed cutoffs: Drug class test level (ng/mL) Amphetamines 500 Barbituates 200 Benzodiazepine metabolites 200 Cocaine metabolites 150 Cannabinoids 50 Opiates 300 Pcp 25 This is a screening procedure. Positive results are not confirmed. Specimen was received without chain of custody. Results should be used for medical purposes only. 68 Test Performed by: [place] [address] Copywriter: Kenrick Hightower II, M.D., Ph.D. 69 SEE RESULT BELOW Name: DEAN PENG : [address]: Justin Tom MD Acct: [id number] Unit: [id number] AGE: 34 Location: ED Re06/11/15 SEX: F Status: DEP ER SPEC: [id number] DEBBIE: 06/11/[address] [facility] [address]: Justin Tom MD REQ: [id number] RECD: 06/11/15 STATUS: TOMASA COCHRAN DR: [facility] Jeremiah Zendejas OIL PROSPECTING OBSERVER _ SOURCE: URINE SPDESC: ORDERED: Urine Culture Procedure Result Verified Site Urine Culture Final 06/14/15- 938 ML Organism 1 NORMAL JUDE Realitos Count >100,000 (Many) CFU/ML * ML - MAIN LAB ([facility]) . END OF REPORT * ML=Testing performed at Main Lab DEPARTMENT OF PATHOLOGY, [address] [place] [address] Ty Guo M.D. Director [facility] # [id number] 70 SEE RESULT BELOW Name: DEAN PENG : [address]: Jeremiah Zendejas OIL PROSPECTING OBSERVER Acct: [id number] Unit: [id number] AGE: 34 Location: [facility] Re05/16/15 SEX: F Status: REG REF SPEC: [id number] DEBBIE: 05/16/15-[address] [facility] [address]: Jeremiah Zendejas NP REQ: [id number] RECD: 05/16/15 STATUS: COMP _ SOURCE: THROAT SPDESC: ORDERED: Throat Culture Procedure Result Verified Site Throat Culture Final 05/18/15- 0752 ML Organism 1 NORMAL JUDE Quantity 2+ Throat cultures are clinically indicated to detect the presence of group A strep, arcanobacterium and yeast. In certain cases, predominating organisms will be reported. * ML - MAIN LAB ([facility]) . END OF REPORT * ML=Testing performed at Main Lab DEPARTMENT OF PATHOLOGY, [facility] [address] [place], [place] [address] Ty Guo M.D. Director [facility] # [id number] 71 N 72 Because ethnic data is not always [...] 5 Kidney failure <15 (or dialysis) 73 RUN DATE: 02/19/15 [facility] LAB LIVE PAGE 1 RUN TIME: 8[address] [facility] [employer] [place], [place] [address] Specimen Inquiry Name: DEAN PENG : [address]: Srinivas Boston MD Acct: [id number] Unit: [id number] AGE: 34 Location: ED Re02/16/15 SEX: F Status: DEP ER SPEC: [id number] DEBBIE: 02/16/[address]: Hernando House DO REQ: [id number] RECD: 02/16/15 STATUS: TOMASA COCHRAN DR: [facility] Marito Turpin III, MD _ SOURCE: URINE SPDESC: ORDERED: Urine Culture Procedure Result Verified Site Urine Culture Final 02/19/15- 0834 ML Organism 1 ESCHERICHIA COLI Realitos Count 25-50,000 (Moderate) CFU/ML Organism 2 NORMAL JUDE Realitos Count 25-50,000 (Moderate) CFU/ML 1. ESCHERICHIA COLI [...] * ML - MAIN LAB ([facility]) . END OF REPORT * ML=Testing performed at Main Lab DEPARTMENT OF PATHOLOGY, [address] [place] [address] Ty Guo M.D. Director [facility] # [id number] 74 Because ethnic data is not always [...] <15 (or dialysis) 75 Test Performed by: [address] [address] Copywriter: Kenrick Hightower II, M.D., Ph.D. 76 Because ethnic data is not always readily [...] 15-29 5 Kidney failure <15 (or dialysis) 77 RUN DATE: 02/02/15 [facility] LAB LIVE PAGE 1 RUN TIME: [address] [place] [address] Specimen Inquiry Name: DEAN PENG Lee : [address]: Jeremiah Zendejas NP Acct: [id number] Unit: [id number] AGE: 34 Location: [facility] Re01/26/15 SEX: F Status: REG REF SPEC: [id number] DEBBIE: 01/26/15-[address]: Tanvir Vizcarra MD REQ: [id number] RECD: 01/26/15 STATUS: SHAUN COCHRAN DR: Jeremiah Zendejas OIL PROSPECTING OBSERVER _ ORDERED: GOM METH STN, PASS STAIN, [...] performed at Main Lab DEPARTMENT OF PATHOLOGY, [facility] [address] [place], [place] [address] Ty Guo M.D. Director [facility] # [id number] 78 RUN DATE: 02/02/15 [facility] LAB LIVE PAGE 1 RUN TIME: 40[address] [facility] [employer] [place], [place] [address] Specimen Inquiry Name: DEAN PENG : [address]: Jeremiah Zendejas NP Acct: [id number] Unit: [id number] AGE: 34 Location: [facility] Re01/26/15 SEX: F Status: REG REF SPEC: [id number] DEBBIE: 01/26/[address] [facility] [address]: Tanvir Vizcarra MD REQ: [id number] RECD: 01/26/15 STATUS: SHAUN COCHRAN DR: Jeremiah Zendejas OIL PROSPECTING OBSERVER _ ORDERED: GOM METH STN, PASS STAIN, [...] performed at Main Lab DEPARTMENT OF PATHOLOGY, [facility] [address] [place] [address] Ty Guo M.D. Director [facility] # [id number] RUN DATE: 02/02/15 [facility] LAB LIVE PAGE 2 RUN TIME: 10[address] [facility] [employer] [place], [place] [address] Specimen Inquiry Patient: DEAN PENG Lee [id number] (Continued) MICROSCOPIC DESCRIPTION (Continued) Signed (signature on file) Griselda Garsia MD 0928 END OF REPORT * ML=Testing performed at Main [facility] DEPARTMENT OF PATHOLOGY, [address] [place] [address] Ty Guo M.D. Director [facility] # [id number] 79 Test Performed by: [place] [address] Copywriter: Kenrick Hightower II, M.D., Ph.D. 80 Test Performed by: [place] [address] Copywriter: Kurt Hinton M.D. 81 Test Performed by: [place] [address] Copywriter: Kurt Hinton M.D. 82 Interpretation: 51-80 ng/mL (increased risk of hypercalciuria) REFERENCE VALUE 25-HYDROXY D TOTAL (D2+D3) Optimum levels in the healthy population are 20-50, patients with bone disease may benefit from higher levels within this range. Test Performed by: [place] [address] Copywriter: Kurt Hinton M.D. 83 FASTING 10 HOUR 84 REFERENCE VALUE 25-HYDROXY D TOTAL (D2+D3) Optimum levels in the healthy population are 20-50, patients with bone disease may benefit from higher levels within this range. Test Performed by: [place] [address] Copywriter: Kurt Hinton M.D. 85 FASTING 10 HOUR 86 Normal Range 180 to 914 Indeterminate Range 145 to 180 Deficient Range <145 87 FASTING 10 HOUR 88 FASTING 10 HOUR 89 FASTING 10 HOUR 90 Because ethnic data is not always [...] 5 Kidney failure <15 (or dialysis) 91 Desirable <150 Borderline high 150-199 High 200-499 Very High >500 92 Desirable <200 Borderline high 200-239 High >239 93 Low <40 Desirable: 40-60 High: >60 94 Desirable <100 Near Optimal 100-129 Borderline high 130-159 High 160-189 Very High >189 95 Because ethnic data is not always readily [...] 15-29 5 Kidney failure <15 (or dialysis) 96 Test Performed by: [address] [address] Copywriter: Luis Altamirano III, M.D. 97 Test Performed by: [facility] [address] [place] [address] Copywriter: Luis Altamirano III, M.D. 98 Test Performed by: [facility] [address] [place] [address] Copywriter: Luis Altamirano III, M.D. 99 RUN DATE: 05/30/13 [facility] LAB LIVE PAGE 1 RUN TIME: [address] [place] [address] Specimen Inquiry Name: DEAN KEYES : [address]: Momo Diaz MD Acct: [id number] Unit: [id number] AGE: 32 Location: [facility] Re05/28/13 SEX: F Status: DEP ER SPEC: [id number] DEBBIE: 05/28/13-[address] [facility] [address]: Momo Diaz MD REQ: [id number] RECD: 05/28/13 STATUS: TOMASA COCHRAN DR: Tanvir Vizcarra MD _ SOURCE: URINE SPDESC: ORDERED: Urine Culture QUERIES: Medent Number [id number] Procedure Result Verified Site Urine Culture Final 05/30/13- 1112 ML Organism 1 NORMAL JUDE Realitos Count 25-50,000 (Moderate) CFU/ML END OF REPORT * ML=Testing performed at Main Lab DEPARTMENT OF PATHOLOGY, [address] [place], [place] [address] Ty Guo M.D. Director [facility] Permit #[id number] 100 Test Performed by: [address] [address] Copywriter: Luis Altamirano III, M.D. 101 This test detects intact HCG only and is indicated for the early detection of . 102 RUN DATE: 10/24/12 [facility] LAB LIVE PAGE 1 RUN TIME: 928 [address] [place], [place] [address] Specimen Inquiry Name: DEAN KEYES : [address]: Charline BAINS,Lynette Davis Acct: [id number] Unit: [id number] AGE: 32 Location: [facility] Re10/22/12 SEX: F Status: DEP ER SPEC: [id number] DEBBIE: 10/22/[address]: Charline BAINS,Lynette Davis REQ: [id number] RECD: 10/22/12 STATUS: TOMASA COCHRAN DR: GISSELL Carlin MD,Yudi Yadav MD,Clinton Blanco _ SOURCE: URINE SPDESC: ORDERED: Urine Culture Procedure Result Verified Site Urine Culture Final 10/24/12- 927 ML Organism 1 STREP GROUP B Realitos Count 25-50,000 (Moderate) CFU/ML Organism 2 NORMAL JUDE Realitos Count 75-100,000 (Many) CFU/ML Susceptibility testing of penicillins and other B-lactams approved by FDA for treatment of Streptococcus pyogenes (Group A Strep) and Streptococcus agalactiae (Group B Strep) is not necessary for clinical purposes and need not be done routinely, since as with vancomycin, resistant strains have not been recognized. (CLSI C196-P78;p.66) Positive isolates will be saved for one week. Please call the Microbiology Laboratory if further susceptibility testing is needed. END OF REPORT * ML=Testing performed at Main Lab DEPARTMENT OF PATHOLOGY, [facility] [address] [place], [place] [address] Ty Guo M.D. Director [facility] Permit #[id number] 103 RUN DATE: 09/27/12 [facility] LAB LIVE PAGE 1 RUN TIME: [address] [place] [address] Specimen Inquiry Name: DEAN KEYES : [address]: Lucas Arce MD Acct: [id number] Unit: [id number] AGE: 31 Location: [facility] Re09/25/12 SEX: F Status: DEP ER SPEC: [id number] DEBBIE: 09/25/[address] [facility] [address]: Yazmin BAINS,Lucas REQ: [id number] RECD: 09/25/12 STATUS: TOMASA COCHRAN DR: GISSELL Carlin MD,Yudi _ SOURCE: THROAT SPDESC: ORDERED: Throat Beta Str Procedure Result Verified Site Throat Beta Strep Culture Final 09/27/12- 801 ML Negative For Group A Beta Streptococcus END OF REPORT * ML=Testing performed at Main Lab DEPARTMENT OF PATHOLOGY, [address] [place] [address] Ty Guo M.D. Director [facility] Permit #[id number] 104 Test Performed by: [address] [address] Copywriter: Luis Altamirano III, M.D. R 105 Anion gap measurement may be of limited value in the presence of any alkalosis, especially in a combined acid base disorder. . 106 A metabolite of Naproxen, O-desmethylnaproxen, has been shown to interfere with the [place] method for measuring total bilirubin. Samples from patients who have taken Naproxen have shown spurious elevation in total bilirubin levels. 107 Because ethnic data is not always readily [...] 15-29 5 Kidney failure <15 (or dialysis) 108 Test Performed by: [place] [address] Copywriter: Luis Altamirano III, M.D. Procedures Date Code Description Status 08/20/2017 69197 Polysomnography Sleep Staging 4+ Parameters Completed 07/03/2016 35298 EEG Monitoring & Video Recording Completed 07/02/2016 49236 EEG Monitoring & Video Recording Completed 07/01/2016 68319 EEG Monitoring & Video Recording Completed 06/30/2016 68971 EEG Monitoring & Video Recording Completed 06/29/2016 55046 EEG Monitoring & Video Recording Completed 06/28/2016 86427 EEG Monitoring & Video Recording Completed 01/15/2016 65032 Pulmonary Function><Bronchodil Completed 12/21/2015 03723 EKG Tracing & Interpretation Completed 12/20/2015 15470 EKG Tracing & Interpretation Completed 01/26/2015 46516 Biopsy Skin Lesion Single Completed 12/28/2014 34234 EEG Recording Awake & Asleep Completed 01/15/2013 05836 ECHO Stress Test Incl Perf Contiuous ekg Monitoring W/Phys Completed Superv 12/15/2012 57488 Cardiac Event Monitor Completed 12/11/2012 83039 ECHO Transthoracic, Real-Time 2D With Doppler And Color Completed Flow 11/18/2012 03000 EKG Tracing & Interpretation Completed 09/03/2012 90017 Holter Monitor Review (24 hr)dr cheikh & interp only Completed 09/01/2012 08524 Holter Monitor Review (24 hr)dr salamanca & interp only Completed 08/21/2012 31889 EEG Recording Awake & Asleep Completed Encounters Type Date Location Provider Dx Diagnosis Office Visit 12/08/2018 [facility]ion Mena, JANNIE G43.009 Migraine w/o aura, 11:00a [facility] not intractable, w/o status migrainosus F44.5 Conversion disorder with seizures or convulsions Office Visit 11/17/2018 3:00p [facility] Internal Donna Peguero, J02.9 Acute pharyngitis, Medicine - MD unspecified [address] H60.93 Unspecified otitis externa, bilateral Office Visit 10/21/2018 1:20p [facility] Internal Jose Bell, J01.90 Acute sinusitis, Medicine - SPRING INSPECTOR [address] R05 Cough H66.92 Otitis media, unspecified, left ear Office Visit 08/19/2018 1:00p [facility] Internal Jose Bell, J01.90 Acute sinusitis, Medicine - SPRING INSPECTOR unspecified [address] R05 Cough Z23 Encounter for immunization Office Visit 07/15/2018 1:20p [facility] Internal Jose Bell, Z00.01 Encounter for Medicine - [place] SPRING INSPECTOR general adult Rd medical exam w [...] 50-59.9 , adult Office Visit 05/08/2018 1:40p [facility] Internal Zsofia E03.9 Hypothyroidism, Medicine - Ray, SPRING INSPECTOR [address] D50.9 Iron deficiency anemia, unspecified K13.79 Other lesions of oral mucosa J06.9 Acute upper respiratory infection, unspecified Office Visit 04/22/2018 11:00a [facility] Internal Andreapratibha Bell, H81.399 Other peripheral Medicine - SPRING INSPECTOR vertigo, [address] unspecified ear G40.909 Epilepsy, unsp, not intractable, without status epilepticus E03.9 Hypothyroidism, unspecified E66.01 Morbid (severe) obesity due to excess calories N92.0 Excessive and frequent menstruation with regular cycle Z13.220 Encounter for screening for lipoid disorders Office Visit 03/10/2018 2:40p [facility] Internal Tanvir H81.399 Other peripheral Medicine - Pablo Vizcarra vertigo, [address] unspecified ear G40.909 Epilepsy, unsp, not intractable, without status epilepticus Office Visit 01/21/2018 9:40a [facility] Internal Baldev Beck J45.40 Moderate persistent Elizabeth Bonner M.D.,FACP asthma, [address] uncomplicated Z23 Encounter for immunization Office Visit 01/15/2018 [facility] Internal Tnavir E03.9 Hypothyroidism, 1:40p Elizabeth Vizcarra M.D. unspecified [...] intractable, without status migrainosus Office Visit 10/16/2017 [facility] Internal Tanvir E03.9 Hypothyroidism, 1:40p [...] [facility] apnea (adult) [facility] (pediatric) E66.01 Morbid (severe) obesity due to excess calories Office Visit 07/21/2017 10:15a [facility] Diana [place], R06.83 [facility] J44.9 Chronic obstructive pulmonary disease, unspecified E66.01 Morbid (severe) obesity due to excess calories Office 07/18/2017 Neurohospitalist Clinton Blanco G43.909 Migraine, unsp, Visit 3:00p Clinic Pablo Yadav not intractable, without status migrainosus F44.5 Conversion disorder with seizures or convulsions Office Visit 07/17/2017 [facility] Internal Tanvir E03.9 Hypothyroidism, 1:20p Elizabeth Vizcarra M.D. unspecified [address] E66.01 Morbid (severe) obesity due to excess calories R73.9 Hyperglycemia, unspecified Office Visit 06/18/2017 1:20p [facility] Internal Tanvir Vizcarra, R30.0 Dysuria Medicine - [place] Office Visit 05/15/2017 2:00p [facility] Internal Tanvir Vizcarra, Z00.00 Encntr for Medicine - [place] [address] medical exam w/o abnormal findings D17.9 Benign lipomatous neoplasm, unspecified G47.33 Obstructive sleep apnea (adult) (pediatric) F33.9 Major depressive disorder, recurrent, unspecified Office 04/18/2017 [facility] Clinton Blanco G43.909 Migraine, unsp, Visit 10:15a Clinic Pablo Yadav not intractable, without status migrainosus F44.5 Conversion disorder with seizures or convulsions Office Visit 04/08/2017 11:20a [facility] Internal Tanvir Vizcarra, J06.9 Acute upper Medicine - [place] respiratory [address] infection, unspecified H81.393 Other peripheral vertigo, bilateral E03.9 Hypothyroidism, unspecified Office Visit 04/02/2017 [facility] Internal Marito Gruber K08.89 Other specified 2:20p Elizabeth Turpin M.D. disorders of teeth [place] and supporting structures Office Visit 03/25/2017 [facility] Internal Tanvir K05.00 Acute gingivitis, 3:40p Medicine - [place], plaque induced [address] M.D. Office Visit 10/31/2016 [facility] Internal Jeremiah Zendejas, J00 Acute nasopharyngitis 2:20p Medicine - OIL PROSPECTING OBSERVER [common cold] [address] Office Visit 10/29/2016 [facility] Jeremiah Zendejas, F41.9 Anxiety disorder, 11:00a Medicine - OIL [employer]PECTING OBSERVER unspecified [address] F33.9 Major depressive disorder, recurrent, unspecified F44.5 Conversion disorder with seizures or convulsions G43.909 Migraine, unsp, not intractable, without status migrainosus Z02.71 Encounter for disability determination Office 10/17/2016 [facility] Clinton Blanco G43.909 Migraine, unsp, Visit 10:00a Clinic Pablo Yadav not intractable, without status migrainosus F44.5 Conversion disorder with seizures or convulsions Office Visit 10/07/2016 10:40a [facility] Internal Jeremiah Zendejas, G43.909 Migraine , unsp, Medicine - OIL [employer]OSPECTING OBSERVER not intractable, [address] without status migrainosus [...] status migrainosus Office Visit 06/29/2016 [facility] Kady Baker, F44.5 Conversion 10:58a Clinic MD disorder with seizures or convulsions G43.909 Migraine, unsp, not intractable, without status migrainosus Office Visit 06/28/2016 [facility] Kady Baker, F44.5 Conversion 10:55a Clinic MD disorder with seizures or convulsions G43.909 Migraine, unsp, not intractable, without status migrainosus Office Visit 05/10/2016 Stanly Clinton PortiaBryant G43.009 Migraine w/o aura, 10:45a Neurologic Pablo Yadav not intractable, [facility] w/o status migrainosus G40.209 Local-rel symptc epi w cmplx prt seiz,not ntrct,w/o stat epi Office Visit 05/03/2016 1:40p [facility] Internal Jeremiah Zendejas, M79.632 Pain in left Medicine - [place] OIL [employer]OSPECTING OBSERVER forearm Rd S50.12xA Contusion of left forearm, initial encounter Office Visit 03/26/2016 3:00p [facility] Internal Jeremiah Zendejas, H81.319 Aural vertigo, Medicine - OIL [employer]OSPECTING OBSERVER unspecified ear [address] J02.9 Acute pharyngitis, unspecified Office Visit 02/22/2016 [facility] Internal Jeremiah Zendejas, F33.9 Major depressive 1:00p Medicine - OIL [employer]OSPECTING OBSERVER disorder, recurrent, [address] unspecified Office Visit 01/24/2016 [facility] Jeremiah Zendejas, G40.909 Epilepsy, unsp , not 3:40p Medicine - OIL [employer]OSPECTING OBSERVER intractable, without [address] status epilepticus Office Visit 01/01/2016 [facility] Internal Jeremiah Zendejas, A09 Infectious 3:00p Medicine - OIL [employer]OSPECTING OBSERVER gastroenteritis and [address] colitis, unspecified R11.2 Nausea with vomiting, unspecified Office Visit 12/20/2015 2:40p [facility] Internal Jeremiah Zendejas, Z01.419 Encntr for flake drier Medicine - [place] [employer]IL [employer]OSPECTING OBSERVER exam (general) Rd (routine) w/o abn findings [...] Otalgia, unspecified ear Office Visit 12/18/2015 1:00p [facility] Internal Jeremiah Zendejas, G40.909 Epilepsy , unsp, Medicine - OIL PROSPECTING OBSERVER not intractable, [address] without status epilepticus R05 Cough Office Visit 11/14/2015 3:00p [facility] Kadyni Baker, G40.909 Epilepsy, unsp, [facility] not intractable, without status epilepticus F41.9 Anxiety disorder, unspecified Office Visit 10/30/2015 3:30p [facility] Internal Jeremiah Zendejas, J01.90 Acute sinusitis, Medicine - OIL [employer]OSPECTING OBSERVER unspecified [address] H66.92 Otitis media, unspecified, left ear Office Visit 10/11/2015 10:00a [facility] Internal Jeremiah Zendejas, J02.9 Acute pharyngitis, Medicine - OIL PROSPECTING OBSERVER unspecified [address] 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 Office Visit 09/13/2015 4:00p [facility] Internal Jeremiah Zendejas, K59.1 Functional Medicine - [place] O[employer]OSPECTING OBSERVER diarrhea Rd G40.909 Epilepsy, unsp, not intractable, without status epilepticus Office Visit 08/14/2015 11:30a [facility] Internal Jeremiah Zendejas, N92.6 Irregular Medicine - OIL [employer]OSPECTING OBSERVER menstruation, [address] unspecified R35.0 Frequency of micturition Office Visit 06/22/2015 2:30p [facility] Internal Jeremiah Zendejas, 522.0 Pulpitis Medicine - OIL [employer]OSPECTING OBSERVER [address] Office Visit 06/13/2015 3:00p [facility] Internal Jeremiah Zendejas, 345.90 Epilepsy Unspec Medicine - OIL PROSPECTING OBSERVER W/O Intractable [address] 300.02 Anxiety Disorder Generalized 780.39 Convulsions Other 300.00 Anxiety State Unspec Office Visit 05/16/2015 10:30a [facility] Internal Jeremiah Zendejas, 462 Pharyngitis Acute Medicine - OIL PROSPECTING OBSERVER [address] Office Visit 05/09/2015 11:00a [facility] Internal Jeremiah Zendejas, 380.13 Ear Infection Medicine - OIL [employer]OSPECTING OBSERVER External Acute [address] Other 462 Pharyngitis Acute 461.1 Sinusitis Acute Frontal 786.2 Cough 784.0 Headache 380.10 Otitis Externa Infective Unspec Office Visit 03/17/2015 11:00a [facility] Internal Jeremiah Zendejas, 780.4 Dizziness & Medicine - [place] OIL PROSPECTING OBSERVER [address] 300.11 Conversion Disorder Office Visit 03/06/2015 2:00p [facility] Internal Jeremiah Zendejas, 381.4 Otitis Media Acute Medicine - OIL PROSPECTING OBSERVER Or Chronic [address] Nonsuppurative 461.1 Sinusitis Acute Frontal 784.0 Headache 780.4 Dizziness & Giddiness Office Visit 03/02/2015 [place]/Scooter Blanco 345.90 Epilepsy Unspec 1:45p Neurologic Serv Of Pablo Yadav W/O Intractable Accounts Officer 300.11 Conversion Disorder Office Visit 02/14/2015 11:30a [facility] Internal Jeremiah Zendejas, 780.4 Dizziness & Medicine - [place] OIL [employer]OSPECTING OBSERVER [address] Office Visit 02/02/2015 3:00p [facility] Internal Jeremiah Zendejas, 698.9 Pruritic Disorder Medicine - [place] OIL PROSPECTING OBSERVER Unspec Rd 702.8 Dermatoses Other Spec Office Visit 01/16/2015 2:30p [facility] Internal Jeremiah Zendejas, 698.8 Pruritic Medicine - [place] OIL PROSPECTING OBSERVER Conditions Spec Rd Other 300.02 Anxiety Disorder Generalized 698.9 Pruritic Disorder Unspec Office Visit 01/13/2015 1:30p [facility] Internal Jeremiah Zendejas, 698.8 Pruritic Medicine - [place] OIL PROSPECTING OBSERVER Conditions [address] Other 493.10 Asthma Intrinsic Unspecified 698.9 Pruritic Disorder Unspec Office Visit 12/15/2014 Nevin Blanco 345.90 Epilepsy Unspec 2:30p Neurologic Serv Of Pablo Yadav W/O Intractable Accounts Officer Office Visit 12/07/2014 [facility] Internal Medicine Jeremiah Zendejas, 345.90 Epilepsy Unspec 2:00p - [place] OIL PROSPECTING OBSERVER W/O Intractable 293.83 Mood Disorder In Conditions Classified Elsewhere 372.00 Conjunctivitis Acute Unspec 268.9 Vitamin D Deficiency Unspec V77.1 Screening Diabetes Mellitus 296.90 Episodic Mood Disorder NOS Office Visit 10/11/2014 1:30p [facility] Internal Medicine - Jeremiah Zendejas, OIL PROSPECTING OBSERVER 133.0 Scabies [place] 698.8 Pruritic Conditions Spec Other 690.18 Seborrheic Dermatitis Other Office Visit 09/26/2014 11:30a [facility] Internal Jeremiah Guinean, 461.9 Sinusitis Acute Medicine - OIL PROSPECTING OBSERVER Unspec [place] 786.2 Cough 311 Depressive Disorder Not Elsewhere Spec Office Visit 08/30/2014 1:30p [facility] Internal Jeremiah Guinean, 311 Depressive Medicine - OIL PROSPECTING OBSERVER Disorder Not [place] Elsewhere Spec 786.2 Cough Office Visit 08/22/2014 11:30a [facility] Internal Jeremiah Guinean, 466.0 Bronchitis Acute Medicine - OIL PROSPECTING OBSERVER [place] 311 Depressive Disorder Not Elsewhere Spec 280.9 Iron Deficiency Anemia Unspec Office Visit 08/18/2014 [place]/Scooter Blanco 345.90 Epilepsy Unspec 9:30a Neurologic Serv Of Pablo Yadav W/O Intractable [facility] Office Visit 08/09/2014 [facility] Internal Medicine [place] 780.79 Malaise And 10:00a - Sonya Lorenzo M.D. Fatigue Other 300.02 Anxiety Disorder Generalized 345.90 Epilepsy Unspec W/O Intractable 278.00 Obesity Unspec V17.49 Family HX Of Other Cardiovascular Diseases 268.9 Vitamin D Deficiency Unspec 493.10 Asthma Intrinsic Unspecified Office Visit 06/16/2013 3:30p Stanly Aleks Blanco 345.90 Epilepsy Unspec [facility] Pablo Yadav W/O Intractable 300.02 Anxiety Disorder Generalized Office Visit 02/25/2013 11:50a [facility] Internal Yudi 345.91 Epilepsy Unspec W/ Medicine - Pablo Carlin Intractable [place] 493.90 Asthma Unspec W/O Status Asthmaticus 300.00 Anxiety State Unspec Office Visit 02/17/2013 11:15a Stanly Aleks Blanco 345.90 Epilepsy Unspec Services Of Dona Yadav M.D. W/O Intractable Office Visit 02/11/2013 1:00p [facility] Internal Dinorah Lorenzo 345.91 Epilepsy Unspec Medicine - Pablo W/ Intractable [place] Office Visit 11/18/2012 9:30a [facility] Fidel Muhammad 786.50 Pain Chest Unspec Of Dona Goodwin M.D., FACC, FASNC 785.1 Palpitations Office Visit 11/17/2012 Scooter Blanco 345.40 Local-Related 9:30a Neurologic Pablo Yadav Epilepsy W/O [facility] Mention Of Intractable Epilepsy 346.10 Migraine Common W/O Intractable W/O Status Migrainosus Office Visit 10/27/2012 11:00a [facility] Internal [place] 780.4 Dizziness & Elizabeth Vizcarra M.D. [place]iddiness [place] Office Visit 09/28/2012 11:20a [facility] Internal Tanvir 493.90 Asthma Unspec W/ O Elizabeth Vizcarra M.D. Status [place] Asthmaticus 466.0 Bronchitis Acute Office Visit 09/07/2012 [facility] Internal Tanvir 346.92 Migraine 2:40p Elizabeth Vizcarra M.D. Unspecified, W/Out [place] Mention Intractable Migraine Office Visit 09/01/2012 Stanly Clinton Blanco 345.91 Epilepsy Unspec W/ 11:00a Neurologic Pablo Yadav Intractable [facility] Office Visit 08/31/2012 [facility] Internal [place] 427.89 Cardiac 11:40a Elizabeth Vizcarra M.D. Dysrhythmia Other [place] 346.92 Migraine Unspecified, W/Out Mention Intractable Migraine Office Visit 08/20/2012 12:10p [facility] Internal Yudi Carlin, 300.00 Anxiety State Elizabeth Phillips M.D. Unspec [place] 493.90 Asthma Unspec W/O Status Asthmaticus 401.9 Hypertension Unspec V06.1 Nealacoxks-Mfqarjj-Awhecqxn Combined (DTaP) Office 07/20/2012 [facility] Internal Yudi V04.81 Need For Prophylactic Visit 11:50a Elizabeth Carlin M.D. Vaccination & [place] Inoculation/Influenza 345.90 Epilepsy Unspec W/O Intractable 300.00 Anxiety State Unspec 493.90 Asthma Unspec W/O Status Asthmaticus 401.9 Hypertension Unspec Plan of Treatment Future Appointment(s):04/23/2019 2:00 pm - Darion Mena NP at [facility]01/19/2019 - Tawny Ferrari, MDR42 Dizziness and giddinessNew Medication: Vitamin D3 Adult Gummies 1000 Unit - take 1 chewtab dailyComments:Please stop iron, calcium, meclizineFollow up:Please print out letter
--- NOTE | 2019-01-22 14:29 | UC ---
Skin Complaint HPI - HPI Summary HPI Summary: Pt presents with c/o of gradual onset of painful, itchy rash to left upper lateral arm. Pt reports that her arm was painful and burning then noticed blister like rash on left upper lateral arm erupt 2 days ago. Pt is unsure if she had chicken pox as a child. - History of Current Complaint Chief Complaint: UCUpperExtremity Time Seen by Provider: 01/22/19 14:22 Stated Complaint: LT ARM ISSUE Hx Obtained From: Patient Hx Last Menstrual Period: 01/17/19 ?: No Onset/Duration: Still Present Skin Exposure Onset/Duration: Days Ago Timing: Constant Onset Severity: Mild Current Severity: Moderate Pain Intensity: 6 Location: Discrete, Other - left upper lateral arm Character: Pruritus, Redness, Raised, Painful Aggravating Factor(s): Touch Alleviating Factor(s): Unknown Associated Signs & Symptoms: Positive: Rash - Allergy/Home Medications Allergies/Adverse Reactions: Allergies Allergy/AdvReac Type Severity Reaction Status Date / Time amoxicillin [From Augmentin] Allergy Hives Verified 01/17/19 15:18 blueberry Allergy Hives/Diff. Verified 01/17/19 15:18 Breathing/I tching clavulanic acid Allergy Hives Verified 01/17/19 15:18 [From Augmentin] clindamycin Allergy Hives Verified 01/17/19 15:18 coconut Allergy Hives/Diff. Verified 01/17/19 15:18 Breathing/I tching codeine Allergy Altered Verified 01/17/19 15:18 Mental Status formoterol [From Dulera] Allergy Hives Verified 01/17/19 15:18 guaifenesin [From Mucinex] Allergy Unknown Verified 01/17/19 15:18 Reaction Details iohexol [From Omnipaque] Allergy Hives Verified 01/17/19 15:18 latex Allergy Hives Verified 01/17/19 15:18 lemon oil Allergy Vomiting Verified 01/17/19 15:18 metronidazole Allergy Hives Verified 01/17/19 15:18 morphine Allergy See Comment Verified 01/17/19 15:18 paroxetine [From Paxil] Allergy Swelling Verified 01/17/19 15:18 Penicillins Allergy Shortness Verified 01/17/19 15:18 of Breath sertraline [From Zoloft] Allergy Hives Verified 01/17/19 15:18 watermelon Allergy Hives/Diff. Verified 01/17/19 15:18 Breathing/I tching zonisamide Allergy Hives Verified 01/17/19 15:18 pickle Allergy Hives/Diff. Uncoded 01/17/19 15:18 Breathing/I tching PSEUDOEPHEDRINE Allergy Unknown Uncoded 01/17/19 15:18 Reaction Details PMH/Surg Hx/FS Hx/Imm Hx Previously Healthy: Yes Other History Of: Negative For: HIV, Hepatitis B, Hepatitis C - Surgical History Surgical History: Yes Surgery Procedure, Year, and Place: Scalp Cystectomy May 2014, Abdominal Lipoma May 2014 - Family History Known Family History: Positive: Cardiac Disease, Diabetes Negative: Renal Disease, Seizure Disorder - Social History Occupation: Unemployed Lives: Longterm - lives at snf Alcohol Use: None Substance Use Type: None Smoking Status (MU): Former Smoker Type: Cigarettes Have You Smoked in the Last Year: No - Immunization History Most Recent Influenza Vaccination: Fall 2014 Most Recent Tetanus Shot: 2014 Most Recent Pneumonia Vaccination: unknown Review of Systems All Other Systems Reviewed And Are Negative: Yes Constitutional: Positive: Negative Skin: Positive: Rash - left upper lateral arm ENT: Positive: Negative Respiratory: Positive: Negative Cardiovascular: Positive: Negative Gastrointestinal: Positive: Negative Genitourinary: Positive: Negative Motor: Positive: Negative Neurovascular: Positive: Negative Musculoskeletal: Positive: Negative Neurological: Positive: Negative Psychological: Positive: Negative Is Patient Immunocompromised?: No Physical Exam Triage Information Reviewed: Yes Appearance: Well-Appearing, Obese Vital Signs: Initial Vital Signs Temp 98.7 F 01/22/19 13:48 Pulse 93 01/22/19 13:48 Resp 18 01/22/19 13:48 BP 143/72 01/22/19 13:48 Pulse Ox 97 01/22/19 13:48 Vital Signs Reviewed: Yes Eye Exam: Normal ENT Exam: Normal Dental Exam: Normal Dental: Positive: Gross Decay/Caries @, Other: - poor dentition Neck exam: Normal Respiratory: Positive: No respiratory distress Cardiovascular Exam: Normal Musculoskeletal Exam: Normal Neurological Exam: Normal Psychological Exam: Normal Skin Exam: Other - erythematous, raised, rahs with drained flattened vessicles. Course/Dx - Differential Diagnoses - Skin Complaint Differential Diagnoses: Cellulitis, Contact Dermatitis, Scabies, Urticaria, Varicella Zoster - Diagnoses Provider Diagnosis: Shingles rash Discharge - Sign-Out/Discharge Documenting (check all that apply): Patient Departure All imaging exams completed and their final reports reviewed: No Studies - Discharge Plan Condition: Stable Disposition: HOME Prescriptions: ValACYclovir (*) [Valtrex 1 GM(*)] 1 gm PO Q8H #21 tab Patient Education Materials: Shingles (ED) Forms: *Gen. Provider Communication Referrals: Jose Bell NP [Primary Care Provider] - If Needed - Billing Disposition and Condition Condition: STABLE Disposition: Home
== END 2019-01-22 14:40 | disposition home or self-care (01) ==
LOC: UCEAST 13:37
DX: R21 Rash and other nonspecific skin eruption (principal); B02.9 Zoster without complications; Z87.891 Personal history of nicotine dependence; Z88.5 Allergy status to narcotic agent; Z88.1 Allergy status to other antibiotic agents; Z91.040 Latex allergy status; Z88.0 Allergy status to penicillin; Z91.018 Allergy to other foods
CPT/HCPCS: 99212; G0463

== ENCOUNTER 2019-01-30 12:30 | Emergency (ER) | payer OTHER ==
[2019-01-30 13:07] LABS: Influenza A Molecular NEGATIVE (Negative); Influenza B Molecular NEGATIVE (Negative)
[2019-01-30 14:35] VITALS: BP 118/83
--- NOTE | 2019-02-08 16:53 | ED ---
HPI Febrile Illness - HPI Summary HPI Summary: Patient is a 38-year-old female with a history of 2-3 days of nasal discharge, "pain in my right lung" fever, sweats, chills and cough. She states she thinks she has the flu. She denies any known sick contacts. She states she has otherwise healthy. She denies any abdominal pain or urinary symptoms. She has not taken her temperature at home. She has had a cough for 2 days, not improved with [id number] cough medication. - History of Current Complaint Chief Complaint: EDFluSymptoms Time Seen by Provider: 01/30/19 12:55 Hx Obtained From: Patient Hx Last Menstrual Period: 01/17/19 Onset/Duration: Started Days Ago Timing: Constant Initial Severity: Moderate Current Severity: Moderate Pain Intensity: 8 Pain Scale Used: 0-10 Numeric Aggravating Factors: Nothing Alleviating Factors: Nothing Associated Signs and Symptoms: Negative - Risk Factors Pseudomonas Risk Factors: Negative Serious Bacterial Infection Risk Factors: Negative - Allergy/Home Medications Allergies/Adverse Reactions: Allergies Allergy/AdvReac Type Severity Reaction Status Date / Time amoxicillin [From Augmentin] Allergy Hives Verified 01/30/19 12:38 blueberry Allergy Hives/Diff. Verified 01/30/19 12:38 Breathing/I tching clavulanic acid Allergy Hives Verified 01/30/19 12:38 [From Augmentin] clindamycin Allergy Hives Verified 01/30/19 12:38 coconut Allergy Hives/Diff. Verified 01/30/19 12:38 Breathing/I tching codeine Allergy Altered Verified 01/30/19 12:38 Mental Status formoterol [From Dulera] Allergy Hives Verified 01/30/19 12:38 guaifenesin [From Mucinex] Allergy Unknown Verified 01/30/19 12:38 Reaction Details iohexol [From Omnipaque] Allergy Hives Verified 01/30/19 12:38 latex Allergy Hives Verified 01/30/19 12:38 lemon oil Allergy Vomiting Verified 01/30/19 12:38 metronidazole Allergy Hives Verified 01/30/19 12:38 morphine Allergy See Comment Verified 01/30/19 12:38 paroxetine [From Paxil] Allergy Swelling Verified 01/30/19 12:38 Penicillins Allergy Shortness Verified 01/30/19 12:38 of Breath sertraline [From Zoloft] Allergy Hives Verified 01/30/19 12:38 watermelon Allergy Hives/Diff. Verified 01/30/19 12:38 Breathing/I tching zonisamide Allergy Hives Verified 01/30/19 12:38 pickle Allergy Hives/Diff. Uncoded 01/30/19 12:38 Breathing/I tching PSEUDOEPHEDRINE Allergy Unknown Uncoded 01/30/19 12:38 Reaction Details PMH/Surg Hx/FS Hx/Imm Hx Previously Healthy: Yes Endocrine/Hematology History: Reports: Hx Diabetes - "pre diabetes", Hx Thyroid Disease, Hx Anemia Denies: Hx Unexplained Bleeding Cardiovascular History: Denies: Hx Aneurysm, Hx Angina, Hx Angioplasty, Hx Auto Implanted Cardiovert Defib, Hx Cardiac Arrest, Hx Cardiomegaly, Hx Congenital Heart Disease, Hx Congestive Heart Failure, Hx Coronary Artery Disease, Hx Deep Vein Thrombosis, Hx Embolism, Hx Hypercholesterolemia, Hx Hypotension, Hx Hypertension, Hx Myocardial Infarction, Hx Pacemaker/ICD, Hx Peripheral Vascular Disease, Hx Rheumatic Fever, Hx Syncope, Hx Valvular Heart Disease, Other Cardiovascular Problems/Disorders Respiratory History: Reports: Hx Asthma, Hx Chronic Bronchitis, Hx Chronic Obstructive Pulmonary Disease (COPD) Denies: Hx Cystic Fibrosis, Hx Lung Cancer, Hx Pleural Effusion, Hx Pneumonia , Hx Pulmonary Edema, Hx Pulmonary Embolism, Hx Seasonal Allergies, Hx Sleep Apnea, Other Respiratory Problems/Disorders GI History: Reports: Hx Gastroesophageal Reflux Disease - ON DAILY PROLOSEC Denies: Hx Gall Bladder Disease, Hx Gastrointestinal Bleed, Hx Ulcer, Hx Urosepsis History: Denies: Hx Kidney Stones, Hx Renal Disease Sensory History: Reports: Hx Contacts or Glasses Denies: Hx Cataracts, Hx Eye Injury, Hx Eye Prosthesis, Hx Glaucoma, Hx Legally Blind, Hx Macular Degeneration, Hx Vision Problem, Hx Deafness, Hx Hearing Aid, Hx Hearing Problem, Other Sensory Impairments Opthamlomology History: Reports: Hx Contacts or Glasses Denies: Hx Cataracts, Hx Eye Injury, Hx Eye Prosthesis, Hx Glaucoma, Hx Legally Blind, Hx Macular Degeneration, Hx Vision Problem, Other Sensory Impairments Neurological History: Reports: Hx Developmental Delay - 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 Mental health, Hx Bipolar Disorder Denies: Hx Post Traumatic Stress Disorder, Hx Schizophrenia, Hx Suicide Attempt, Hx Substance Abuse - Cancer History Cancer Type, Location and Year: seizure disorder - Surgical History Surgery Procedure, Year, and Place: Scalp Cystectomy May 2014, Abdominal Lipoma May 2014 Hx Anesthesia Reactions: No - Immunization History Hx Pertussis Vaccination: No Immunizations Up to Date: Yes Infectious Disease History: No Infectious Disease History: Denies: Hx Clostridium Difficile, Hx Hepatitis, Hx Human Immunodeficiency Virus (HIV), Hx of Known/Suspected MRSA, Hx Shingles, Hx Tuberculosis, Hx Known/ Suspected VRE, Hx Known/Suspected VRSA, History Other Infectious Disease, Traveled Outside the [place] in Last 30 Days - Family History Known Family History: Positive: Cardiac Disease, Diabetes Negative: Renal Disease, Seizure Disorder - Social History Occupation: Unemployed Lives: With Family Alcohol Use: None Hx Substance Use: No Substance Use Type: Reports: None Hx Tobacco Use: Yes Smoking Status (MU): Former Smoker Type: Cigarettes Have You Smoked in the Last Year: No Review of Systems Positive: Fever, Chills, Fatigue, Skin Diaphoresis Negative: Dental Pain, Sore Throat Negative: Palpitations, Chest Pain Positive: Cough. Negative: Shortness Of Breath Negative: Abdominal Pain, Vomiting, Diarrhea Negative: Arthralgia, Myalgia Skin: Negative Negative: Headache All Other Systems Reviewed And Are Negative: Yes Physical Exam Triage Information Reviewed: Yes Vital Signs On Initial Exam: Initial Vitals Temp Pulse Resp BP Pulse Ox 97.3 F 88 18 159/94 98 01/30/19 12:35 01/30/19 12:35 01/30/19 12:35 01/30/19 12:35 01/30/19 12:35 Vital Signs Reviewed: Yes Appearance: Positive: Well-Appearing, Well-Nourished Skin: Positive: Warm, Skin Color Reflects Adequate Perfusion Head/Face: Positive: Normal Head/Face Inspection Eyes: Positive: EOMI, SHANNON Neck: Positive: Supple, No Lymphadenopathy Respiratory/Lung Sounds: Positive: Clear to Auscultation, Breath Sounds Present Cardiovascular: Positive: RRR, Pulses are Symmetrical in both Upper and Lower Extremities Musculoskeletal: Positive: Normal, Strength/ROM Intact Neurological: Positive: Sensory/Motor Intact, Alert, Oriented to Person Place, Time, Speech Normal Psychiatric: Positive: Normal, Affect/Mood Appropriate AVPU Assessment: Alert Diagnostics - Vital Signs Vital Signs Temp Pulse Resp BP Pulse Ox 01/30/19 14:32 98.4 F 86 20 118/83 97 01/30/19 12:35 97.3 F 88 18 159/94 98 - Laboratory Lab Results: Lab Results 01/30/19 Range/Units 12:55 Influenza A (Rapid) Negative (Negative) Influenza B (Rapid) Negative (Negative) Lab Statement: Any lab studies that have been ordered have been reviewed, and results considered in the medical decision making process. Course/Dx - Course Course Of Treatment: During his course treatment, the patient appears well, lungs are CTA, RRR. Patient appears nontoxic and is eating and drinking on arrival. Influenza swab obtained and is negative. Chest x-ray obtained and is negative. She is diagnosed with viral syndrome and is given Tylenol and Tessalon pearls for relief. She offers no other complaints at this time and will follow up with her PCP in 2-3 days. - Diagnoses Provider Diagnoses: Viral syndrome Discharge - Sign-Out/Discharge Documenting (check all that apply): Patient Departure Patient Received Moderate/Deep Sedation with Procedure: No - Discharge Plan Condition: Stable Disposition: HOME Prescriptions: Acetaminophen TAB* [Tylenol TAB*] 650 mg PO Q6H PRN #20 tab PRN Reason: Fever Benzonatate CAP* [Tessalon CAP*] 100 mg PO TID #21 cap Patient Education Materials: Acute Cough (ED) Forms: *Gen. Provider Communication Referrals: Jose Bell NP [Primary Care Provider] - Additional Instructions: Tessalon up to 3 times daily for cough Tylenol 650mg 2-4 times daily for fevers - Billing Disposition and Condition Condition: STABLE Disposition: Home
== END 2019-01-30 14:34 | disposition home or self-care (01) ==
LOC: ED 12:30
DX: B34.9 Viral infection, unspecified (principal); R73.03 Prediabetes; K21.9 Gastro-esophageal reflux disease without esophagitis; F41.9 Anxiety disorder, unspecified; Z88.1 Allergy status to other antibiotic agents; Z91.041 Radiographic dye allergy status; Z91.040 Latex allergy status; Z88.5 Allergy status to narcotic agent; Z88.0 Allergy status to penicillin; Z88.8 Allergy status to other drugs, medicaments and biological substances; Z91.018 Allergy to other foods; Z82.49 Family history of ischemic heart disease and other diseases of the circulatory system; Z83.3 Family history of diabetes mellitus; Z87.891 Personal history of nicotine dependence
CPT/HCPCS: 71046; 99281

== ENCOUNTER 2019-03-15 10:42 | Emergency (ER) | payer OTHER ==
--- OUTSIDE RECORDS SUMMARY | 2019-03-15 10:49 | XMS REPORT | Continuity of Care Document ---
:1980 External Reference #:[id number] Author Name saira Ynes Care Team Providers Name Role Phone Donna Peguero M.D. Primary Care Physician Unavailable Payers Date Identification Numbers Payment Provider Subscriber Effective: Policy Number: [id number] [place] Dean Peng 2012 Medicaid PayID: [id number] [address] [address] [place] [address] Advance Directives Type Date Description Status Comment Other Directive 12/28/2014 [employer] Current and Verified Problems Active Problems Provider Date Epilepsy Yudi Carlin M.D. Onset: 08/20/2012 Asthma without status asthmaticus Yudi Carlin M.D. Onset: 08/20/2012 Essential hypertension Yudi Carlin M.D. Onset: 08/20/2012 Conduction disorder of the heart Tanvir Vizcarra M.D. Onset: 08/31/2012 Migraine variants, not intractable Tanvir Vizcarra M.D. Onset: 08/31/2012 Anxiety disorder Jeremiah Zendejas NP Onset: 01/16/2015 Depressive disorder Jeremiah Zendejas NP Onset: 06/13/2015 Note: Bipolar Peripheral vertigo Tanvir Vizcarra M.D. Onset: 04/08/2017 Hypothyroidism Tanvir Vizcarra M.D. Onset: 04/08/2017 Lipoma (clinical) Tanvir Vizcarra M.D. Onset: 05/15/2017 Obstructive sleep apnea syndrome Tanvir Vizcarra M.D. Onset: 05/15/2017 Recurrent major depressive episodes Tanvir Vizcarra M.D. Onset: 05/15/2017 Gastroesophageal reflux disease Tanvir Vizcarra M.D. Onset: 10/16/2017 Morbid obesity Tanvir Vizcarra M.D. Onset: 10/16/2017 Inactive Problems Difficulty breathing Diana Escalona MD Onset: 07/21/2017 Inactive: 01/21/2018 Bronchitis Diana Escalona MD Onset: 07/21/2017 Inactive: 01/21/2018 Note: chronic Resolved Problems Acute bronchitis Tanvir Vizcarra M.D. Onset: 09/28/2012 Resolved: 02/27/2015 Dizziness and giddiness Tanvir Vizcarra M.D. Onset: 10/27/2012 Resolved: 02/27/2015 Family History Date Family Member(s) Observation Comments First Sister 21 First Sister other sister had thyroid removed. Social History Type Date Description Comments Sex Unknown Marital Status Lives With Boyfriend Occupation Disabled ETOH Use 01/21/2018 Denies alcohol use Tobacco Use Start: Unknown End: Unknown Patient is a former smoker Recreational Drug Use Denies Drug Use Smoking Status Reviewed: 03/10/19 Patient is a former smoker Allergies, Adverse Reactions, Alerts Active Allergies Reaction Severity Comments Date Latex Contact dermatitis 07/20/2012 Sudafed High BP 07/20/2012 Lemon Anaphylaxis 02/25/2013 Augmentin diarrhea 09/29/2014 Paroxetine pt unaware of 03/06/2015 reaction Pseudoephedrine unaware of reaction 03/06/2015 Zoloft unaware of reaction 03/06/2015 Darlyn confusion Severe 03/17/2015 Dye, contrast swelling in hands, Severe 06/13/2015 cant breath Penicillin lessons ability to Moderate 05/03/2016 walk per pt Metronidazole nausea, vomiting, Moderate 06/18/2017 tachycardia Zonisamide Urticaria 06/18/2017 Peanut-containing Drug 01/02/2018 Products Tylenol face swells 04/22/2018 Codeine 11/17/2018 Amoxicillin 11/17/2018 Morphine lost use of legs and 12/08/2018 amnesia Mucinex 01/15/2019 Benadryl cognitive 03/10/2019 impairments Inactive Allergies Dye, Contrast arm swelled and "out of it" Moderate 05/09/2015 Medications Active Medications SIG Qnty Indications Ordering Date Provider Lamotrigine take one tab by 7tabs Clinton Blanco 03/10/2019 100mg mouth with 200 mg Pablo Yadav Tablets Dispers dose in the morning (total of 300 mg in the morning) for one week. Doxepin HCL Take one cap by 30caps G43.009 Clinton Blanco 03/10/2019 50mg mouth at night. Pablo Yadav Capsules Zyrtec Allergy take one tablet by 30caps J30.9 Jose Bell, 02/17/2019 10mg mouth in the DEVELOPMENT DISABILITY SPECIALIST Capsules evening Lamotrigine take 1 tab by 120tabs Clinton Blanco 01/15/2019 200mg mouth in the Pablo Yadav Tablets morning and take 2 tabs at bedtime Trueplus Lancets 30G use to test 100units Jose Bell, 12/31/2018 Ultra Thin DEVELOPMENT DISABILITY SPECIALIST 30G Misc Fluticasone use 2 sprays in 16units J01.90 Jose Bell, 10/21/2018 Propionate each nostril one DEVELOPMENT DISABILITY SPECIALIST 50mcg/Act time a day Suspension Robitussin 12 Hour 5 milliliters by 89ml R05 Donna Peguero MD 10/21/2018 Cough Relief mouth twice a day 30mg/5ML as needed Suer Nasal [place] 12 Hour 2 sprays each 30ml J01.90 Jose Bell, 10/21/2018 nostril 2x daily DEVELOPMENT DISABILITY SPECIALIST 0.05% Solution as needed for congestion True Focus Self test blood twice 100units Tawny Ferrari MD 08/17/2018 Monitoring Blood daily Glucose Test Strips Strips True Metrix Go Blood use daily as 1units Jose Bell, 08/17/2018 Glucose Meter directed last DEVELOPMENT DISABILITY SPECIALIST visit: 08/19/18 w/Device Kit Ventolin HFA 2 puffs by mouth 8gm J45.30 Jose Bell, 07/15/2018 four times a day DEVELOPMENT DISABILITY SPECIALIST 108(90Base) mcg/Act as needed Aerosol Guards use mouth guard at 1units K13.79 Jose Bell, 05/08/2018 Misc night DEVELOPMENT DISABILITY SPECIALIST Citalopram take one tablet by 30tabs Donna Peguero MD 03/12/2018 Hydrobromide mouth every day 40mg Tablets Ibuprofen take one tablet 90tabs Jose Bell, 06/24/2016 800mg three times daily DEVELOPMENT DISABILITY SPECIALIST Tablets as needed. Omeprazole take one capsule 30caps K21.9 Donna Peguero MD 09/15/2015 20mg by mouth every day Capsules DR PETERSON Cetirizine HCL 1 by mouth every 30tabs Donna Peguero MD 03/31/2015 day 10mg Tablets Albuterol Sulfate inhale the 100units Baldev Beck 11/02/2012 contents of one Pablo Bonner,FACP (2.5mg/3ML) 0.083% vial via nebulizer Nebulizer every 4 to 6 hours as needed Levothyroxine Sodium 1 by mouth every 90tabs E03.9 Donna Peguero MD day 75mcg Tablets History Medications Doxepin HCL Take one capsule 30caps G43.909 Clinton Blanco 03/10/2019 - 50mg at night. Pablo Yadav 03/10/2019 Capsules Vitamin D3 Adult take 1 chewtab 90units R42 Tawny Ferrari MD 01/19/2019 - Gummies daily 02/17/2019 1000Unit Chewtabs Mucinex DM 1 by mouth twice 60tabs Jose Bell, 12/31/2018 - 30-600mg a day DEVELOPMENT DISABILITY SPECIALIST 01/14/2019 Tablets ER 12HR Doxepin HCL 4 capsules every 120caps G43.909 Clinton S. 12/10/2018 - 10mg night at bedtime Pablo Yadav 03/10/2019 Capsules Freestyle Lancets 2 times daily 100units Andreaofimagaly Bell, 12/09/2018 - and as needed DEVELOPMENT DISABILITY SPECIALIST 12/30/2018 Misc Neomycin/Polymyxin/ 2 drops in 10ml H60.93 Donna Peguero MD 11/17/2018 - Hydrocortisone affected ear 02/17/2019 (Otic) twice a day for 3.5-84356-0 5 days as needed Solution Doxycycline take 1 tab po 20caps Jose Bell, 10/22/2018 - Monohydrate bid for 10 days DEVELOPMENT DISABILITY SPECIALIST 11/17/2018 100mg Capsules Cefuroxime Axetil 1 tab by mouth 14tabs H66.92 Andreaofimagaly Bell, 10/21/2018 - twice a day for DEVELOPMENT DISABILITY SPECIALIST 10/22/2018 250mg Tablets 7 days J01.90 Doxycycline 1 tab by mouth 14tabs J01.90 Jose Bell, 08/19/2018 - Monohydrate twice a day for DEVELOPMENT DISABILITY SPECIALIST 11/17/2018 100mg 7 days Tablets Benzonatate take 1 tab by 30caps R05 Jose Morochok, 08/19/2018 - 100mg mouth three [facility] 01/19/2019 Capsules times a day as needed for cough Breo Ellipta inhale 1 puff by 30units Comfort Oliver, 08/11/2018 - mouth once daily M.D. 11/17/2018 100-25mcg/Inh Aerosol Advair Diskus inhale 1 dose by 60units Tanvir Vizcarra, 07/21/2018 - mouth twice a M.D. 08/11/2018 100-50mcg/Dose day Aerosol Sulfamethoxazole/Tri 1 tab po bid x 7 14tabs L03.116 Jose Bell, 2017 - methoprim DS days [facility] 08/19/2018 800-160mg Tablets Cephalexin take 1 tab three 30caps L03.116 Jose Bell, 07/15/2018 - 500mg times a day for [facility] 07/15/2018 Capsules 10 days Flovent HFA 2 act twice a 10.600gm J45.30 Jose Bell, 07/15/2018 - 44mcg/Act day daily for 2 [facility] 07/21/2018 Aerosol week rinse after use Vitamin C take one tablet 60tabs D50.9 Donna Peguero MD 05/08/2018 - 500mg by mouth twice a 02/17/2019 Tablets day Meclizine HCL take 1/2-1 90tabs H81.399 Jose Bell, 03/10/2018 - 25mg tablet by mouth [facility] 01/19/2019 Tablets three times a day as needed Calcium take one tablet 180tabs J00 Donna Peguero MD 02/18/2018 - Carbonate-Vitamin D by mouth twice a 01/19/2019 day with food [id number] Tablets Prednisone 4 tabs every day 20tabs Baldev Beck 01/21/2018 - 10mg for 2 days, then Pablo Bonner,[facility] 01/29/2018 Tablets reduce by 1 tab every 2 days until finished Arnuity Ellipta 1 puff inhaled 30units Baldev Beck 01/21/2018 - every mary Bonner M.D.,FACP 11/17/2018 100mcg/Act Aerosol Calcium take one tablet 180tabs Tanvir Vizcarra, 10/20/2017 - Carbonate-Vitamin D by mouth twice a M.D. 01/01/2018 day with food [id number] Tablets Doxepin HCL 4 capsules every 120caps G43.909 Kendricknila Adrien, 09/12/2017 - 10mg night at bedtime M.D. 12/08/2018 Capsules Doxycycline Hyclate 1 by mouth twice 20tabs Other Ordering 07/23/2017 - a day x 10 days Provider 08/02/2017 100mg Tablets Acetaminophen-Codein 1 tab by mouth q 10tabs Unknown 07/23/2017 - e #3 6 hrs day as 09/11/2017 300-30mg Tablets needed pain Zonisamide 2 tabs po qhs 60caps G43.909 Clinton Yadav, 07/18/2017 - 100mg M.D. 01/01/2018 Capsules Doxycycline Hyclate 1 cab twice a 14caps R30.0 Tanvir Vizcarra, 2016 - day M.D. 07/17/2017 100mg Capsules Nitrofurantoin take one capsule 14caps Other Ordering 06/10/2017 - Macrocrystal twice daily for Provider 06/17/2017 100mg 7 days. Capsules Zonisamide 1 po qhs for 1 120caps G43.909 Clinton Yadav, 04/18/2017 - 25mg wk then 2 qhs M.D. 06/18/2017 Capsules for 1 wk then 3 qhs for 1 wk then 4 qhs Azithromycin 2 tab today and 6tabs J06.9 Tanvir Vizcarra, 04/08/2017 - 250mg then 1tab daily M.D. 04/10/2017 Tablets Meclizine HCL 1-2 tab two 60tabs H81.393 Tanvir Vizcarra, 04/08/2017 - 12.5mg times a day M.D. 07/15/2018 Tablets Levothyroxine Sodium take one tablet 45tabs E03.9 Tanvir Vizcarra, 2016 - by mouth every M.D. 01/21/2018 25mcg Tablets morning Lidocaine Viscous swish and spit 200ml K08.89 Marito Mayaie, 2016 - 2% 15cc up to three M.D. 04/10/2017 Solution times a day as needed Ondansetron HCL one by mouth 10tabs Baldev Beck 03/31/2017 - 4mg every 8 hours as Pablo Bonner,FACP 07/15/2018 Tablets needed for nausea Ketorolac take 1 by mouth 3tabs Bekah Jarrell, 03/31/2017 - Tromethamine every 8 hours as M.DBryant 04/10/2017 10mg needed for Tablets migraine. take with food. Clindamycin HCL 1 tabs by mouth 40caps K05.00 Tanvir Vizcarra, 2016 - 300mg every 6h M.D. 04/10/2017 Capsules Vicodin 1 tab every 12 20tabs K05.00 Tanvir Vizcarra, 03/25/2017 - 5-300mg hours M.D. 05/21/2017 Tablets Citalopram Take One Tablet 30tabs Tanvir Vizcarra, 03/17/2017 - Hydrobromide By Mouth Every M.D. 03/12/2018 10mg Day Along With Tablets 20 MG Tablet To Equal Total Daily Dose Of 30 MG Calcium 600+D 1 tab by mouth 180tabs J00 Tanvir Vizcarra, 10/31/2016 - twice a day take M.D. 02/18/2018 [id number] w/ meal Tablets Topiramate 1 po qam and 1 75tabs G43.909 Clinton Yadav, 10/17/2016 - 100mg 1/2 qhs M.D. 03/18/2017 Tablets Robitussin 12 Hour 1-2 teaspoon at 118ml J00 Tanvir Vizcarra, 10/10/2016 - Cough Relief night as needed M.D. 11/17/2018 30mg/5ML Suer Naproxen 1 tablet by 60tabs M79.632 Jeremiah Zendejas NP 05/03/2016 - 250mg mouth twice a 05/13/2016 Tablets day as needed pain, with foods Prednisone 1 tablets by 5tabs J02.9 Jeremiah Zendejas NP 03/26/2016 - 20mg mouth daily x's 05/03/2016 Tablets 5 days in the morning Meclizine HCL 1 tablet tid 45tabs H81.319 Jeremiah Zendejas NP 03/26/2016 - 25mg every 6-8 hours 04/09/2016 Tablets as needed Ventolin HFA 2 puffs by mouth 1units Baldev Beck 03/13/2016 - four times a day Pablo Bonner,[facility] 11/17/2018 108(90Base) mcg/Act as needed Aerosol Escitalopram Oxalate 1/2 tab po qd 30tabs F33.9 Baldev Beck 03/11/2016 - for 1 wk then 1 Pablo Bonner,FACP 03/14/2016 10mg Tablets by mouth every day Venlafaxine HCL 75 mg for 1 22tabs F33.9 Jeremiah Zendejas NP 02/22/2016 - week, then 37.5 03/13/2016 37.5mg Tablets mg for 1 week, then stop. Zofran Odt 1 odt by mouth 12tabs R11.2 Jeremiah Zendejas NP 01/01/2016 - 4mg every 6 hours as 01/02/2016 Tablets Dispers needed nausea no more than 3 daily Drisdol 1 tab by mouth 8caps Jeremiah Zendejas NP 12/25/2015 - [id number] once a week x's 02/22/2016 Capsules 8 weeks Nystop apply topically 1units B37.2 Jeremiah Zendejas NP 12/20/2015 - [id number]/GM to rash twice a 02/22/2016 Powder day until rash resolved Cefdinir 1 capsule twice 20caps J01.90 Jeremiah Zendejas NP 10/30/2015 - 300mg a day x's 10 11/09/2015 Capsules days Ipratropium [place] instill 2 sprays 1units J01.90 Jeremiah Zendejas NP 2014 - in each nostril 11/13/2015 0.03% Solution three times a day as needed nasal congestion Penicillin V 1 tablet by 20tabs Jeremiah Zendejas NP 10/12/2015 - Potassium mouth bid x10 10/22/2015 500mg days Tablets Cepacol Sore Throat J02.9 Jeremiah Zendejas NP 10/11/2015 - 10/16/2015 5.4mg Lozenges Clindamycin HCL 1 capsule by 30caps J02.9 Jeremiah Zendejas NP 10/11/2015 - 300mg mouth three 10/12/2015 Capsules times a day x's 10 days Freestyle Lancets test bs once 100units Zsofia Ray, 09/28/2015 - daily and as DEVELOPMENT DISABILITY SPECIALIST 08/16/[address] [facility] needed Freestyle System 250.02 Jeremiah Zendejas, ADHESIVE BANDAGE MACHINE OPERATOR 09/28/2015 - Kit 08/16/2018 Freestyle Test test strips use 100units Zsofia Ray, 09/28/2015 - daily as DEVELOPMENT DISABILITY SPECIALIST 08/16/2018 Strips directed Topiramate take 3 by mouth 90caps G43.909 Clinton Yadav, 09/10/2015 - 25mg Caps at bedtime M.D. 10/17/2016 Sprinkle Naproxen 1 tab by mouth 14tabs Jeremiah Zendejas, ADHESIVE BANDAGE MACHINE OPERATOR 08/24/2015 - 500mg every 12 hours. 11/13/2015 Tablets prn Benzonatate 1 tab by mouth 30caps R05 Andreaofia Ray, 08/22/2015 - 100mg three times a DEVELOPMENT DISABILITY SPECIALIST 07/15/2018 Capsules day as needed J00 [place] 1 tab every 6 6tabs Jeremiah Zendejas, 07/05/2015 - 7.5-325mg Tablets hours up to twice ADHESIVE BANDAGE MACHINE OPERATOR 07/08/2015 a day x3 days [place] 1 tab every 6 30tabs 522.0 Jeremiah Zendejas, 06/22/2015 - 7.5-325mg Tablets hours prn pain ADHESIVE BANDAGE MACHINE OPERATOR 07/05/2015 Nystatin swish and swallow 225ml Jeremiah Zendejas, 05/26/2015 - 870807Ctiq/ML 5ml four times a ADHESIVE BANDAGE MACHINE OPERATOR 06/05/2015 Suspension day x's 10 days Medrol (Tj) take as 1tabs 462 Jeremiah Zendejas, 05/16/2015 - 4mg Tablets prescribed ADHESIVE BANDAGE MACHINE OPERATOR 05/26/2015 Clindamycin HCL 1 capsule by 30caps 462 Jeremiah Zendejas, 05/16/2015 - 300mg mouth three times ADHESIVE BANDAGE MACHINE OPERATOR 05/26/2015 Capsules a day x's 10 days Amoxicillin take one tablet 20tabs 380.13 Jeremiah Zendejas, 05/09/2015 - 875mg Tablets by mouth twice a ADHESIVE BANDAGE MACHINE OPERATOR 05/19/2015 day x's 10 days Cheratussin ac 1-2 teaspoon by 120ml 786.2 Jeremiah Zendejas, 05/09/2015 - mouth every 4 to ADHESIVE BANDAGE MACHINE OPERATOR 05/19/2015 100-10mg/5ML Syrup 6 hours as needed cough Amoxicillin take one tablet 14tabs 381.4 Jeremiah Zendejas, 03/06/2015 - 875mg Tablets by mouth twice a ADHESIVE BANDAGE MACHINE OPERATOR 03/17/2015 day x's 7 days Darlyn Allergy 1 tab by mouth 30tabs 461.1 Jeremiah Zendejas, 03/06/2015 - 180mg daily x's 4-6 ADHESIVE BANDAGE MACHINE OPERATOR 03/17/2015 Tablets weeks Zyrtec Allergy 1 by mouth every 30caps Edison 02/10/2015 - 10mg day Pachikara, 02/14/2015 Capsules M.D. Hydroxyzine HCL 2 tab by mouth 698.8 Jeremiah Zendejas 02/02/2015 - 25mg every 6 hours as ADHESIVE BANDAGE MACHINE OPERATOR 02/02/2015 Tablets needed for itching Ranitidine HCL 1 capsule po bid 60caps 698.9 Jeremiah Zendejas, 02/02/2015 - 150mg ADHESIVE BANDAGE MACHINE OPERATOR 03/06/2015 Capsules Darlyn Allergy 2 tab by mouth 60tabs 698.9 Edison 02/02/2015 - 180mg daily Pachikara, 02/10/2015 Tablets M.D. Prednisone 5 pillsx's2days, 30tabs 698.9 Jeremiah Zendejas, 02/02/2015 - 10mg Tablets 4pillsx's2days, ADHESIVE BANDAGE MACHINE OPERATOR 02/12/2015 3pillsx's2days, 2pillsx's2days,1p illx's2days,then stop Hydroxyzine HCL 2 tab by mouth 56tabs 698.8 Jeremiah Zendejas 01/26/2015 - 25mg every 6 hours as ADHESIVE BANDAGE MACHINE OPERATOR 02/02/2015 Tablets needed for itching Triamcinolone apply topically 30G Jeremiah Zendejas 01/23/2015 - Acetonide twice a day to ADHESIVE BANDAGE MACHINE OPERATOR 01/26/2015 0.1% Cream affected sites Lorazepam 1 by mouth tid as 15tabs Claudia 01/16/2015 - 0.5mg Tablets needed DO Jean Claude 01/16/2015 Lorazepam 1 by mouth tid as 15tabs Jeremiah Zendejas 01/16/2015 - 0.5mg Tablets needed ADHESIVE BANDAGE MACHINE OPERATOR 01/16/2015 Alprazolam 1/2-1 tab by 60tabs Jeremiah Zendejas 01/16/2015 - 0.5mg Tablets mouth twice a day ADHESIVE BANDAGE MACHINE OPERATOR 03/17/2015 as needed Hydrocortisone Plus apply tid daily 1tube Jeremiah Zendejas, 01/16/2015 - 1% until rash ADHESIVE BANDAGE MACHINE OPERATOR 01/26/2015 Cream resolved Hydroxyzine HCL 2 tab by mouth 56tabs 698.8 Jeremiah Zendejas, 01/13/2015 - 25mg every 6 hours as ADHESIVE BANDAGE MACHINE OPERATOR 01/16/2015 Tablets needed for itching Ranitidine 150 Maximum 1 tablet po qd 30tabs 698.8 Jeremiah Zendejas, 2014 - Strength until hives ADHESIVE BANDAGE MACHINE OPERATOR 02/02/2015 150mg Tablets resolve Tudorza Pressair 1 inhalation po 1units 493.10 Jeremiah Zendejas, 01/13/2015 - qd ADHESIVE BANDAGE MACHINE OPERATOR 02/02/2015 400mcg/Act Aerosol Alprazolam 1 PO daily 20tabs Jeremiah Zendejas, 01/05/2015 - 0.5mg Tablets ADHESIVE BANDAGE MACHINE OPERATOR 01/16/2015 Dispers Vitamin D 1 by mouth every 30tabs J00 Jeremiah Zendejas, 12/11/2014 - 1000Unit day ADHESIVE BANDAGE MACHINE OPERATOR 10/31/2016 Tablets Polytrim 1 drop left eye 1units 372.00 Jeremiah Zendejas, 12/07/2014 - every four hours ADHESIVE BANDAGE MACHINE OPERATOR 12/12/2014 40138-2.1Unit/ML-% while awake x's 5 Solution days Hydroxyzine HCL 2 tab by mouth 56tabs 698.8 Jeremiah Zendejas, 10/11/2014 - 25mg every 6 hours as ADHESIVE BANDAGE MACHINE OPERATOR 01/13/2015 Tablets needed for itching Permethrin apply from neck 1units 133.0 Jeremiah Zendejas, 10/11/2014 - 5% Cream to toes topically ADHESIVE BANDAGE MACHINE OPERATOR 12/07/2014 leave on 8-14 hours then bath off. repeat in 7 days. Clarithromycin 1 tab po bid x's 14tabs Jeremiah Zendejas, 09/29/2014 - 500mg 7 days ADHESIVE BANDAGE MACHINE OPERATOR 10/06/2014 Tablets Afrin 12 Hour 2-3 sprays both 1units Jeremiah Zendejas, 09/29/2014 - 0.05% nares every 12 ADHESIVE BANDAGE MACHINE OPERATOR 12/07/2014 Solution hours as needed rhinorhea Amoxicillin/Clavulanat 1 tablet by mouth 20tabs 461.9 Jeremiah Zendejas, 2013 - e Potassium twice a day x's ADHESIVE BANDAGE MACHINE OPERATOR 09/29/2014 875-125mg 10 days Tablets Cheratussin ac 1-2 teaspoon by 120ml 786.2 Jeremiah Armenian, 09/26/2014 - mouth every 4 to ADHESIVE BANDAGE MACHINE OPERATOR 10/01/2014 100-10mg/5ML Syrup 6 hours as needed cough Citalopram Take One Tablet 30tabs F33.9 Tanvir 08/30/2014 - Hydrobromide By Mouth Every Pachikara, 03/12/2018 20mg Tablets Day Along With 10 M.D. MG Tablet To Equal Total Daily Dose Of 30 MG Citalopram 1 tablet po daily 30tabs 311 Jeremiah Zendejas, 08/22/2014 - Hydrobromide ADHESIVE BANDAGE MACHINE OPERATOR 08/30/2014 40mg Tablets Zithromax 1 tab take 2 on 11tabs Unknown 08/18/2014 - 250mg Tablets day 1, then 1 09/26/2014 daily Cheratussin ac 1-2 tsp by mouth 236ml Jeremiah Zendejas, 08/18/2014 - every 4 to 6 ADHESIVE BANDAGE MACHINE OPERATOR 09/26/2014 100-10mg/5ML Syrup hours as needed cough Prednisone 2 by mouth every 10tabs Unknown 08/18/2014 - 20mg Tablets day 09/26/2014 Ferrous Gluconate take one tablet 180tabs D50.9 Donna Peguero, 08/12/2014 - by mouth twice MD 01/19/2019 324(38Fe) mg Tablets daily Sertraline HCL 1 po qd 30tabs Clinton Blanco 12/16/2013 - 100mg Pablo Yadav 08/09/2014 Tablets Sertraline HCL take 1.5 po qd 45tabs Dedra Aparicio 07/12/2013 - 50mg Pablo Rea 12/16/2013 Tablets Sertraline HCL 3 po qhs 90tabs Clinton Blanco 06/16/2013 - 25mg Pablo Yadav 07/12/2013 Tablets Symbicort 2 puff inhaled 1units 493.90 Jeremiah Zendejas, 02/25/2013 - 160-4.5mcg/Act twice a day ADHESIVE BANDAGE MACHINE OPERATOR 05/09/2015 Aerosol Keppra 1 po at bedtime 30tabs 345.91 Clinton Blanco 02/11/2013 - 500mg Tablets Pablo Yadav 06/16/2013 Spiriva Handihaler 1 inhalation po 30caps 780.4 Edison 10/27/2012 - 18mcg qam Meghannra, 02/25/2013 Capsules M.D. Prednisone 5tabx 2days,4 30tabs 493.90 Edison 09/28/2012 - 10mg Tablets [id number], 10/27/2012 [id number],2tabx2 M.D. days,1tabxday. Topamax 1 tab PO hs 30tabs 346.92 Edison 09/07/2012 - 25mg Tablets [facility], 09/28/2012 M.DBryant Lamotrigine 3 by mouth every 210tabs [facility]. 07/21/2012 - 100mg Tablets morning and 4 Pablo Yadav 01/15/2019 every night at bedtime Symbicort 2 puff inhaled 1units 493.90 [facility] 07/20/2012 - 80-4.5mcg/Act bid Pablo Carlin 02/25/2013 Aerosol Sertraline HCL Take One Tablet 90tabs [facility] 07/20/2012 - 50mg By Mouth One Time Pablo Carlin 06/16/2013 Tablets Daily Citalopram 1 by mouth every 30tabs Unknown - Hydrobromide day 08/22/2014 20mg Tablets Oxymetazoline HCL Unknown - 0.05% 10/11/2014 Solution Hydroxyzine HCL 1 po bid if 30tabs Jeremiah Zendejas, - 50mg needed ADHESIVE BANDAGE MACHINE OPERATOR 11/13/2015 Tablets Lorazepam 1 po q 8 to 12 Unknown - 1mg Tablets hours as needed 06/13/2015 Citalopram Unknown - Hydrobromide 03/02/2015 20mg Tablets Acetaminophen 2 tablets every 240tabs Jeremiah Armenian, - 500mg 6-8 hours as ADHESIVE BANDAGE MACHINE OPERATOR 10/29/2016 Tablets needed for pain Dulera 2 puff twice a Unknown - 100-5mcg/Act day 06/13/2015 Aerosol Zithromax one by mouth one Unknown - 500mg Tablets per day 08/14/2015 Flonase Allergy Relief 2 intranasal 9.900ml Edison - twice a day [facility], 11/17/2018 50mcg/Act Suspension M.D. Keflex 1 by mouth three Unknown - 500mg Capsules times a day 10/11/2015 Robitussin Chest 1-2 teaspoon at 118ml Baldev Beck - Congestion night as needed Kailey, 10/10/2016 100mg/5ML M.DBryant,FACP Syrup Ra Motion Sickness take 1/2 tab by 30tabs Jeremiah Zendejas, - Relief mouth three times ADHESIVE BANDAGE MACHINE OPERATOR 04/08/2017 25mg Tablets daily if needed for vertigo Nitrofurantoin Unknown - Macrocrystal 07/17/2017 50mg Capsules Phenazopyridine HCL Unknown - 100mg 07/20/2017 Tablets Methocarbamol Take One Tablet Unknown - 500mg By Mouth Three 07/17/2017 Tablets Times A Day as Needed For Spasms Meloxicam Take One Tablet Unknown - 7.5mg Tablets By Mouth Twice A 07/17/2017 Day Azo Urinary Tract prn Unknown - Defense 07/20/2017 162-162.5mg Tablets Levothyroxine Sodium Take One Tablet Unknown - By Mouth Every 09/02/2018 75mcg Tablets Day Meclizine HCL one tablet twice Unknown - 25mg a day if too 02/17/2019 Tablets sedating reduce to one every night at bedtime Lamictal 2 by mouth every 60tabs Clinton Blanco - 25mg Table[place] 03/10/2019 bedtime with 2(200 mg tabs) total 450 mg at at bedtime Lamotrigine 1 po tid 60tabs Unknown - 200mg Tablets 07/21/2012 Loratadine 1 po qd as needed 30tabs Dinorah Lorenzo, - 10mg Tablets Pablo 08/09/2014 Nadolol 1/2 tablet po qd 90tabs Yudi - 40mg Tablets Pablo Carlin 09/07/2012 Sertraline HCL 1 po qd 90tabs Unknown - 25mg 07/20/2012 Tablets Ventolin HFA 2 puffs po qid 1units Unknown - 108(90Base) prn 07/20/2012 mcg/ac Aerosol Symbicort 1 puff inhaled 2units Unknown - Aerosol bid 07/20/2012 Vicodin 1-2 po q 8hrs prn 40tabs Unknown - 5-500mg Tablets pain 07/20/2012 Ventolin HFA 2 puffs po qid 1units Unknown - 108(90Base) prn 03/13/2016 mcg/ac Aerosol Zithromax 1 tab take 2 on 6tabs Unknown - 250mg Tablets day 1, then 1 10/27/2012 daily Zyrtec Allergy 1 by mouth every 30caps Jeremiah Zendejas, - 10mg day ADHESIVE BANDAGE MACHINE OPERATOR 02/02/2015 Capsules Phenazopyridine HCL 1 by mouth tid as 20tabs Unknown - 200mg needed 08/17/2014 Tablets Benzonatate one by mouth 30caps Unknown - 100mg three times daily 10/11/2014 Capsules as needed for cough Triamcinolone apply twice a day 30gm Unknown - Acetonide until clear 10/11/2014 0.1% Cream Omeprazole 1 by mouth every 90caps Unknown - 20mg Capsules day 08/17/2014 DR Ramsay Handihaler 1 inhalation by 90caps Jeremiah Zendejas, - 18mcg mouth every [employer] MACHINE OPERATOR 01/13/2015 Capsules morning Proair HFA 2 puffs by mouth 1units Unknown - 108(90Base) every 4 hours as 10/11/2014 mcg/Act Aerosol needed Vitamin D3 Maximum 1 by mouth every 8caps Unknown - Strength week 12/11/2014 [id number] Capsules Lorazepam 1 by mouth tid as 15tabs Unknown - 0.5mg Tablets needed 10/11/2014 Cetirizine HCL 1 by mouth every Unknown - 10mg day 08/17/2014 Tablets Omeprazole 1 by mouth every 30caps Jeremiah Zendejas, - 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 Conroy CPT Code Status Date Vaccine Reaction Lot # [id number] Given 08/19/2018 Influenza Virus Vaccine, [id number] Quadrivalent, Split, Preservative Free [id number] Given 07/28/2018 Influenza Virus Vaccine, Quadrivalent, Split, Preservative Free 21254 Given 07/28/2018 Influenza Virus Vaccine, Quadrivalent, Split, Preservative Free [id number] Given 01/21/2018 Influenza Virus Vaccine, [id number] Quadrivalent, Split, Preservative Free 60593 Given 10/16/2017 Pneumonia Vaccine no reaction, pt [id number] tolerated well Q2035 Given 10/16/2015 Afluria Vaccine [id number] Given 08/20/2012 Tdap - [id number] Tetanus/Diptheria/Acellula r Pertussis Q2038 Given 07/20/2012 Fluzone Vaccine [id number] Ordered 07/04/2016 Afluria Vaccine Vital Signs Date Vital Result Comment 03/10/2019 12:37pm Height 67 inches 5'7" Weight 354.25 lb Heart Rate 78 /min BP Systolic Sitting 160 mmHg BP Diastolic Sitting 90 mmHg Respiratory Rate 18 /min BMI (Body Mass Index) 55.5 kg/m2 02/17/2019 12:00pm Height 67 inches 5'7" Weight 355.12 lb Heart Rate 80 /min BP Systolic 128 mmHg BP Diastolic 89 mmHg Body Temperature 98.1 F O2 % BldC Oximetry 97 % BMI (Body Mass Index) 55.6 kg/m2 01/19/2019 11:05am Height 67 inches 5'7" Weight [...] Test Result H/L Range Note Laboratory test 02/13/2019 [facility] TSH 3.55 mcIU/mL N 0.34- 5.[address] ([place] [address] [id number]) [phone] CBC Auto Diff 02/13/2019 [facility] White Blood 8.4 10^3/uL N 3.5-10.[address] [place] [address] [phone] Red Blood Count 4.17 10^6/uL N 3.70-4.87 Hemoglobin 13.8 g/dL N 12.0-16.0 Hematocrit 41 % N 33-41 Mean Corpuscular Volume 97 fL N 80-97 Mean Corpuscular Hemoglobin 33 pg High 27-31 Mean Corpuscular HGB Conc 34 g/dL N 31-36 Red Cell Distribution Width 14 % N 10.5-15 Platelet Count 305 10^3/uL N 150-450 Mean Platelet Volume 7.4 fL N 7.4-10.4 Abs Neutrophils 5.4 10^3/uL N 1.5-7.7 Abs Lymphocytes 2.0 10^3/uL N 1.0-4.8 Abs Monocytes 0.5 10^3/uL N 0-0.8 Abs Eosinophils 0.3 10^3/uL N 0-0.6 Abs Basophils 0.1 10^3/uL N 0-0.2 Abs Nucleated RBC 0 10^3/uL Granulocyte % 64.7 % Lymphocyte % 24.5 % Monocyte % 6.3 % Eosinophil % 3.5 % Basophil % 1.0 % Nucleated Red Blood Cells % 0.1 Basic Metabolic Panel 02/13/2019 [facility] Sodium 140 mmol/L N 135-[address] [place], [place] [address] [phone] Potassium 4.5 mmol/L N 3.5-5.0 Chloride 106 mmol/L N 101-111 Co2 Carbon Dioxide 27 mmol/L N 22-32 Anion Gap 7 mmol/L N 2-11 Glucose 115 mg/dL High 70-100 Blood Urea Nitrogen 10 mg/dL N 6-24 Creatinine 0.65 mg/dL N 0.51-0.95 BUN/Creatinine Ratio 15.4 N 8-20 Calcium 9.3 mg/dL N 8.6-10.3 Egfr Non- 102.6 >60 Egfr 124.1 >60 1 Laboratory test 02/13/2019 [facility] HCG < 0.60 mIU/ mL [address] [place], [place] [id number] [phone] Lamotrigine (Lamictal) 8.3 g/mL 2.5 - 15.0 3 Urinalysis Profile 02/13/2019 [facility] Urine Color Yellow [address] [place], [place] [id number] [phone] Urine Appearance Cloudy Urine Specific [place] 1.020 N 1.010-1.030 Urine pH 7.0 N 5-9 Urine Urobilinogen Negative Negative Urine Ketones Negative Negative Urine Protein Negative Negative Urine Leukocytes 1+ Abnormal Negative Urine Blood Negative Negative * * Abnormal Negative 4 Urine Nitrite Negative Negative Urine Bilirubin Negative Negative Urine Glucose Negative Negative Urine White Blood Cell 1+(6-10/hpf) Abnormal Absent Urine Red Blood Cell Absent Absent Urine Bacteria Absent Absent Urine Squamous Epithelial Cell Present Abnormal Absent Urine Culture And 02/13/2019 [facility] Urine Culture SEE RESULT [address] [place] [address] [phone] Rapid Influenza A 01/30/2019 [facility] Influenza A NEGATIVE Negative 6 & B Molecular [address] Molecular [place], [place] [id number] [phone] Influenza B Molecular NEGATIVE Negative Laboratory test 01/30/2019 [facility] Rapid SEE RESULT [address] [place] [address] Antigen [phone] Urine Culture And 01/17/2019 [facility] Urine Culture SEE RESULT [address] [place]OW [place], [place] [id number] [phone] Laboratory test 01/17/2019 [facility] Magnesium 1.8 mg/dL Low 1.9-[address]7 [place] [address] [phone] Creatine Kinase(CK) 84 U/L N 10-223 Alcohol < 10 mg/dL N <10 TSH (Thyroid Stim Horm) 3.86 mcIU/mL N 0.34-5.60 HCG < 0.60 mIU/mL 9 Comp Metabolic Panel 01/17/2019 [facility] Sodium 138 mmol/L N 135-[address] [place] [address] [phone] Potassium 4.0 mmol/L N 3.5-5.0 Chloride 105 [...] Egfr Non- 91.1 >60 Egfr 110.3 >60 10 Laboratory test 01/17/2019 [facility] Lactic Acid 1.8 mmol/L N 0.5-2.0 [address] [place] [address] [phone] CBC Auto Diff 01/17/2019 [facility] White Blood 7.7 10^3/uL N 3.5-10.[address] [place] [address] [phone] Red Blood Count 3.97 10^6/uL Low 4.00-5.40 [...] Blood Cells % 0 Laboratory test 01/17/2019 [facility] Partial 28.7 seconds N 26.0-36.[address] [place] [address] PTT [phone] Inr/Protime 01/17/2019 [facility] Inr 0.96 N 0.77-1.02 [address] [place] [address] [phone] Urinalysis 01/17/2019 [facility] Urine Color Yellow Profile [address] [place] [address] [phone] Urine Appearance Cloudy Urine Specific [place] 1.017 N 1.010-1.030 Urine pH 6.0 N 5-9 Urine Urobilinogen Negative Negative Urine Ketones Negative Negative Urine Protein Negative Negative Urine Leukocytes 1+ Abnormal Negative Urine Blood Negative Negative * * Abnormal Negative 12 Urine Nitrite Negative Negative Urine Bilirubin Negative Negative Urine Glucose Negative Negative Urine White Blood Cell 1+(6-10/hpf) Abnormal Absent Urine Red Blood Cell Trace(0-2/hpf) Absent Urine Bacteria Absent Absent Urine Squamous Epithelial Cell Present Abnormal Absent Urine Drug 01/17/2019 [facility] Amphetamine Ur None Detected None Detect SCR ED & [address] [place] [place] [address] [phone] Barbiturates Urine Screen None Detected None Detect Benzodiazepine Urine Screen None Detected None Detect Urine Cannabinoids Screen None Detected None Detect Urine Cocaine Screen None Detected None Detect Urine Opiates Screen None Detected None Detect Urine Phencyclidine Screen None Detected None Detect 13 Laboratory test 01/04/2019 [facility] TSH (Thyroid 2.58 mcIU/mL N 0.34-5.60 [address] Stim Horm) [place] [address] [phone] Lamotrigine (Lamictal) 11.2 g/mL 2.5 - 15.0 15 Comp Metabolic Panel 01/04/2019 [facility] Sodium 137 mmol/L N 135-[address] [place] [address] [phone] Potassium 4.1 mmol/L N 3.5-5.0 Chloride 105 [...] Egfr Non- 91.1 >60 Egfr 110.3 >60 16 CBC Auto Diff 01/04/2019 [facility] White Blood 6.9 10^3/uL N 3.5-10.[address] [place] [address] [phone] Red Blood Count 4.16 10^6/uL N 4.00-5.40 [...] Blood Cells % 0 Poc Urinalysis 01/04/2019 [facility] Poc Glucose, Negative Negative [address] Urine [place], [place] [id number] [phone] Poc Bilirubin, Urine Negative Negative Poc Ketone, Urine Negative Negative Poc Specific [place], Urine 1.020 N 1.010-1.030 Poc Blood, Urine 1+ Abnormal Negative Poc pH, Urine 7.5 N 5-9 Poc Protein, Urine Negative Negative Poc Urobilinogen, Urine 0.2 Negative Poc Nitrite, Urine Negative Negative Poc Leukocytes, Urine 3+ Abnormal Negative Poc Color, Urine Yellow Poc Clarity, Urine Clear 17 Urine Culture And 01/04/2019 [facility] Urine Culture SEE RESULT 18, [address] [place] [address] [phone] Laboratory test 12/29/2018 [facility] Fecal SEE RESULT [address] [place] [address] (Stool WBC) [phone] CBC Auto Diff 12/05/2018 [facility] White Blood 8.4 N 3.5- [address] Count 10^3/uL 10.8 [place], [place] [address] [phone] Red Blood Count 4.29 10^6/uL N 4.00-5.40 [...] Cells % 0 Comp Metabolic Panel 12/05/2018 [facility] Sodium 140 mmol/L N 135-[address] [place] [address] [phone] Potassium 4.4 mmol/L N 3.5-5.0 Chloride 105 [...] Egfr Non- 89.7 >60 Egfr 108.5 >60 21 Laboratory test 12/05/2018 [facility] Lipase < 10 U/L Low 11.0 -82.[address] [place] [address] [phone] HCG < 0.60 mIU/mL 22 Laboratory test 11/17/2018 [facility] Rapid Strep Negative Negative [address] [facility] [address] [phone] Laboratory test 11/17/2018 [facility] Rapid Strep A SEE RESULT [address] [place] [address] [phone] Laboratory test 10/23/2018 [facility] Rapid Strep Negative Negative [address] [place] [address] [phone] Laboratory test 06/25/2018 [facility] TSH (Thyroid 3.56 mcIU/mL N 0.34-5.[address] Stim Horm) [place] [address] [phone] CBC Auto Diff 06/25/2018 [facility] White Blood 6.9 10^3/uL N 3.5-10.[address] [place] [address] [phone] Red Blood Count 3.80 10^6/uL Low 4.00-5.40 [...] % 0.1 Iron & Iron Binding 06/25/2018 [facility] Iron 52 g/dL N 50- [address] [place] [address] [phone] Unsaturated Iron Binding 280 g/dL Total Iron Binding Capacity 332 g/dL N 250-450 Transferrin 237 mg/dL N 203-362 % Iron Saturation 16 % N 15-55 Vitamin B12 And 05/01/2018 [facility] Vitamin B12 537 pg/mL N 180-914 26 Folate Serum [address] [place] [address] [phone] Folic Acid (Folate) 6.33 ng/mL >3.99 Laboratory test 05/01/2018 [facility] Ferritin 14.5 ng/mL N 11 -[address] [place] [address] [phone] CBC Auto Diff 05/01/2018 [facility] White Blood 4.7 10^3/uL N 3.5-10.[address] [place] [address] [phone] Red Blood Count 3.74 10^6/uL Low 4.00-5.40 [...] Blood Cells % 0 Lipid Profile 05/01/2018 [facility] Triglycerides 221 mg/dL 27 (Trig/Chol/HDL) [address] [place] [address] [phone] Cholesterol 171 mg/dL 28 HDL Cholesterol 26.6 mg/dL 29 LDL Cholesterol 100 mg/dL 30 Iron & Iron Binding 05/01/2018 [facility] Iron 32 g/dL Low 50-[address] [place] [address] [phone] Unsaturated Iron Binding 298 g/dL Total Iron Binding Capacity 330 g/dL N 250-450 Transferrin 236 mg/dL N 203-362 % Iron Saturation 10 % Low 15-55 Laboratory 05/01/2018 [facility] TSH (Thyroid 6.43 High 0.34- 5.[address] Stim Horm) mcIU/[place] [address] [phone] Lipid Profile 04/22/2018 [facility] Triglycerides 177 mg/dL 32 (Trig/Chol/HD [address]) [place] [address] [phone] Cholesterol 172 mg/dL 33 HDL Cholesterol 34.1 mg/dL 34 LDL Cholesterol 103 mg/dL 35 Laboratory test 04/22/2018 [facility] TSH (Thyroid 4.16 mcIU/mL N 0.34-5.[address] Stim Horm) [place] [address] [phone] CBC Auto Diff 04/22/2018 [facility] White Blood 7.5 10^3/uL N 3.5-10.8 [place] [address] [phone] Red Blood Count 3.55 10^6/uL Low 4.00-5.40 [...] Red Blood Cells % 0 Laboratory 04/10/2018 [facility] Rapid Strep Negative Negative 36 test finding [address] [place] [address] [phone] Laboratory 04/10/2018 [facility] Rapid Strep A SEE RESULT 37 test finding [address] [place] [address] [phone] Laboratory 04/02/2018 [facility] Lamotrigine 15.9 g/mL 2.5 - 15.[address] (Lamictal) [place] [address] [phone] Comp Metabolic 04/02/2018 [facility] Sodium 137 mmol/L Low 139 -[address] [place] [address] [phone] Potassium 4.0 mmol/L N 3.5-5.0 Chloride 104 [...] Egfr Non- 83.6 >60 Egfr 107.5 >60 39 Laboratory test 03/10/2018 [facility] Lamotrigine 13.1 g/mL 2.5 - [address] (Lamictal) 15.0 [place] [address] [phone] Laboratory test 08/25/2017 [facility] TSH (Thyroid 1.89 N 0.34 -5.[address] Stim Horm) mcIU/mL 0 [place] [address] [phone] Comp Metabolic 07/22/2017 [facility] Sodium 137 mmol/L N 133- [address] [place] [address] [phone] Potassium 4.1 mmol/L N 3.5-5.0 Chloride 105 [...] 72.2 N >60 Egfr 92.8 N >60 41 Laboratory test 07/22/2017 [facility] Hemoglobin A1c 5.2 % N Less than 42 finding (Glyco HGB) 6.0 [place] [address] [phone] Ua Routine 06/18/2017 [facility] In House Ua Specific 1.015 [place] Ua PH 6 Ua Color martín Ua Appera cloudy Ua WBC trace Ua Protein trace Ua Glucose neg Ua Ketones neg Ua Bilirubin neg Ua Urobilinogen neg Ua Nitrite neg Ua Occult Blood large Urine Culture And 06/18/2017 [facility] Urine Culture SEE RESULT [address] [place] [address] [phone] Laboratory test 04/08/2017 [facility] Thyroglobulin AB <1.8 IU/ mL N <4.0 [address] [place] [address] [phone] Thyroperoxidase AB 315.57 IU/mL High <9 Free T4 (Free Thyroxine) 0.67 ng/dL N 0.61-1.12 TSH (Thyroid Stim Horm) 4.16 mcIU/mL N 0.34-5.60 Comp Metabolic Panel 04/04/2017 [facility] Sodium 138 mmol/L N 133-[address] [place] [address] [phone] Potassium 3.7 mmol/L N 3.5-5.0 Chloride 107 [...] 86.6 N >60 Egfr 111.4 N >60 45 CBC Auto Diff 04/04/2017 [facility] White Blood 8.2 10^3/uL N 3.5-10.[address] [place] [address] [phone] Red Blood Count 3.94 10^6/uL Low 4.0-5.4 [...] Cells % 0 N Laboratory test 04/04/2017 [facility] Monospot Negative N Negative [place] [address] [place] [address] [phone] Urinalysis Profile 04/04/2017 [facility] Urine Color Yellow [address] [place] [address] [phone] Urine Appearance Cloudy N Urine Specific [place] 1.019 N 1.010-1.030 Urine pH 7.0 N [...] Present Abnormal Absent Urine Culture And 04/04/2017 [facility] Urine Culture SEE RESULT [address] [place] [address] [phone] Laboratory test 04/04/2017 [facility] Lactic Acid 1.7 mmol/L N 0.5-[address] [place] [address] [phone] Rapid Strep A SEE RESULT BELOW 48 Laboratory test 04/04/2017 [facility] Magnesium 1.8 mg/dL Low 1.9-2.[address] [place] [address] [phone] Troponin-I (TnI) 0.00 ng/mL N <0.04 49 TSH (Thyroid Stim Horm) 6.69 mcIU/mL High 0.34-5.60 Laboratory 04/04/2017 [facility] Rapid Strep Negative N Negative 50 test finding [address] [place] [address] [phone] Laboratory 10/02/2016 [facility] Lamotrigine 12.6 g/mL N 2.5 - 15.[address] (Lamictal) [place] [address] [phone] Topomax (Topiramate) 2.3 g/mL N 52 CBC Auto Diff 10/02/2016 [facility] White Blood 6.9 10^3/uL N 3.5-10.[address] [place] [address] [phone] Red Blood Count 4.03 10^6/uL N 4.0-5.4 [...] % 0 N Comp Metabolic Panel 10/02/2016 [facility] Sodium 136 mmol/L N 133-[address] [place] [address] [phone] Potassium 3.8 mmol/L N 3.5-5.0 Chloride 108 [...] 74.5 N >60 Egfr 95.9 N >60 53 CBC Auto Diff 03/10/2016 [facility] White Blood 9.6 10^3/uL N 3.5-10.[address] [place] [address] [phone] Red Blood Count 4.58 10^6/uL N 4.0-5.4 [...] Cells % 0 N Laboratory test 03/10/2016 [facility] Partial 31.7 seconds N 26.0-36.[address] [place] [address] PTT [phone] Lactic Acid 1.3 mmol/L N 0.5-2.0 54 Laboratory test 03/10/2016 [facility] HCG < 0.60 mIU/ mL N [address] [place] [address] [phone] TSH (Thyroid Stim Horm) 1.40 ?IU/mL N 0.34-5.60 B-Type Natriuretic Peptide BNP 18 pg/mL N 56 Lamotrigine (Lamictal) 14.9 g/mL N 2.5 - 15.0 57 Comp Metabolic Panel 03/10/2016 [facility] Sodium 137 mmol/L N 133-[address] [place] [address] [phone] Potassium 3.7 mmol/L N 3.5-5.0 Chloride 108 [...] 72.6 N >60 Egfr 93.4 N >60 58 Inr/Protime 03/10/2016 [facility] Inr 1.10 N 0.89-1.[address] [place] [address] [phone] Laboratory test 03/10/2016 [facility] Magnesium 2.2 mg/dL N 1.9-2.[address] [place] [address] [phone] Lipase 8 U/L Low 11.0-82.0 Creatine Kinase(CK) 63 U/L N 10-223 C Reactive Protein 14.41 mg/L High < 5.00 59 Troponin-I (TnI) 0.00 ng/mL N <0.03 60 CKMB 03/10/2016 [facility] CKMB ng/mL 1.1 ng/mL N 0.6-6.[address] [place] [address] [phone] Laboratory test 02/26/2016 [facility] Vitamin D 31.3 ng/mL N 30-[address] Total 25(Oh) [place] [address] [phone] Basic Metabolic 01/01/2016 [facility] Sodium 138 mmol/L N 133- [address] [place] [address] [phone] Potassium 4.0 mmol/L N 3.5-5.0 Chloride 108 mmol/L N 101-111 Co2 Carbon Dioxide 22 mmol/L N 22-32 Anion Gap 8 mmol/L N 2-11 Glucose 92 mg/dL N 70-100 Blood Urea Nitrogen 9 mg/dL N 6-24 Creatinine 0.75 mg/dL N 0.51-0.95 BUN/Creatinine Ratio 12.0 N 8-20 Calcium 9.2 mg/dL N 8.6-10.3 Egfr Non- 88.5 N >60 Egfr 113.8 N >60 61 Laboratory test 01/01/2016 [facility] Alkaline 78 U/L N 34- [address] [place] [address] [phone] CBC Auto Diff 01/01/2016 [facility] White Blood Count 8.8 N 3.5-10.[address] 10^3/[place] [address] [phone] Red Blood Count 4.00 10^6/uL N 4.0-5.4 [...] Cells % 0 N Laboratory test 12/25/2015 [facility] Vitamin D 25.9 ng/mL Low 30-50 [address] Total 25(Oh) [place], [place] [address] [phone] TSH (Thyroid Stim Horm) 4.01 ?IU/mL N 0.34-5.60 63 Lipid Profile 12/25/2015 [facility] Triglycerides 214 mg/dL N 64 (Trig/Chol/HDL) [address] [place] [address] [phone] Cholesterol 177 mg/dL N 65 HDL Cholesterol 37.5 mg/dL N 66 LDL Cholesterol 97 mg/dL N 67 Laboratory test 12/25/2015 [facility] Glucose 98 mg/dL N 70- 100 [address] [place], [place] [address] [phone] Laboratory test 12/20/2015 [facility] Cytology SEE RESULT [address] [place] [address] [phone] HPV Rna Ww/Reflex Genotype Negative N Negative 70 Laboratory test 08/14/2015 [facility] Urine Culture And SEE RESULT [address] [place] [address] [phone] Laboratory test 08/14/2015 [facility] Beta HCG (BHCG) < 0.60 N finding [address] Quantitative mIU/[place] [address] [phone] Urinalysis 08/14/2015 [facility] Urine Color Yellow N Profile [address] [place] [address] [phone] Urine Appearance Cloudy N Urine Specific [place] 1.013 N 1.010-1.030 Urine pH 6.0 N [...] Present Abnormal Absent CBC Auto Diff 06/11/2015 [facility] White Blood 6.3 10^3/uL N 4.8-10.[address] [place] [address] [phone] Red Blood Count 4.38 10^6/uL N 4.0-5.4 [...] Cells % 0.1 N Laboratory test 06/11/2015 [facility] HCG Qualitative Negative N Negative [address] [place] [address] [phone] Urinalysis 06/11/2015 [facility] Urine Color Yellow N Profile [address] [place] [address] [phone] Urine Appearance Cloudy N Urine Specific [place] 1.026 N 1.010-1.030 Urine pH 5.0 N [...] Epithelial Cell Present Abnormal Absent Laboratory 06/11/2015 [facility] Lactic Acid 1.0 mmol/L N 0.5- 2.2 test finding [address] [place] [address] [phone] Urine Drug SCR 06/11/2015 [facility] Amphetamine Ur None N None Detect ED & Pain [address] [place] [address] [phone] Barbiturates Urine Screen None Detected N None Detect Benzodiazepine Urine Screen None Detected N None Detect Urine Cannabinoids Screen None Detected N None Detect Urine Cocaine Screen None Detected N None Detect Urine Opiates Screen Presumptive Posi <SEE NOTE> Abnormal None Detect 73 Urine Phencyclidine Screen None Detected N None Detect 74 Laboratory test 06/11/2015 [facility] Lamotrigine 11.0 g/mL N 2.5 - [address] (Lamictal) 15.0 [place] [address] [phone] Urine Culture And Sensitivities SEE RESULT BELOW 76 Laboratory test 05/16/2015 [facility] Culture SEE RESULT [address] [place] [address] [phone] CBC Auto Diff 03/16/2015 [facility] White Blood 8.6 10^3/uL N 4.8-[address] Count .8 [place] [address] [phone] Red Blood Count 4.41 10^6/uL N 4.0-5.4 [...] Cells % 0 N Laboratory test 03/16/2015 [facility] Monospot Negative N Negative [address] [place] [address] [phone] CBC Auto Diff 03/09/2015 [facility] White Blood 6.8 10^3/uL N 4.8-10.[address] [place] [address] [phone] Red Blood Count 4.28 10^6/uL N 4.0-5.4 [...] % 0 N Comp Metabolic Panel 03/09/2015 [facility] Sodium 136 mmol/L N 133-145 [address] [place] [address] [phone] Potassium 4.0 mmol/L N 3.5-5.0 Chloride 107 [...] 91.8 N >60 Egfr 118.1 N >60 79 Urinalysis Profile 02/16/2015 [facility] Urine Color Yellow N [address] [place] [address] [phone] Urine Appearance Cloudy N Urine Specific [place] 1.017 N 1.010-1.030 Urine pH 6.0 N [...] Present Abnormal Absent Urine Culture And 02/16/2015 [facility] Urine (SEE NOTE) [address] [place] [address] [phone] CBC Auto Diff 02/16/2015 [facility] White Blood 11.5 High 4.8- [address] Count 10^3/uL 0.8 [place] [address] [phone] Red Blood Count 4.32 10^6/uL N 4.0-5.4 [...] % 0 N Comp Metabolic Panel 02/16/2015 [facility] Sodium 139 mmol/L N 133-[address] [place] [address] [phone] Potassium 4.3 mmol/L N 3.5-5.0 Chloride 106 [...] 90.4 N >60 Egfr 116.2 N >60 81 Laboratory test 02/16/2015 [facility] Magnesium 2.0 mg/dL N 1.9-2.[address] [place] [address] [phone] TSH (Thyroid Stimulating Horm) 1.87 IU/mL N 0.34-5.60 Lamotrigine 7.8 g/mL N 2.5 - 15.0 82 CBC Auto 02/14/2015 [facility] White Blood 13.0 10^3/uL High 4.8-10.[address] [place] [address] [phone] Red Blood Count 4.32 10^6/uL N 4.0-5.4 [...] % 0.1 N Comp Metabolic Panel 02/14/2015 [facility] Sodium 136 mmol/L N 133-[address] [place] [address] [phone] Potassium 4.5 mmol/L N 3.5-5.0 Chloride 103 [...] 83.8 N >60 Egfr 107.8 N >60 83 Laboratory test 01/26/2015 [facility] Surgical RUN DATE: [address] Pathology 02/02/ [place] [address] <SEE NOTE> [phone] Surgical 01/26/2015 [facility] S RUN DATE: [address] 02/02/ [place] [address] <SEE NOTE> [phone] Laboratory test 12/28/2014 [facility] Lamotrigine 12.4 N 2.[address] g/[place] [address] 15.0 [phone] Laboratory test 12/07/2014 [facility] Lamotrigine 9.5 g/mL N 2.[address] [place] [address] 15.0 [phone] Vitamin D 1,25 12/07/2014 [facility] Vitamin D 98 pg/mL Abnormal 18-7 88 And Vitamin D,[address] 1,25-Dihydroxy 8 [place] [address] [phone] Vitamin D, 25 12/07/2014 [facility] 25-Hydroxy 73 ng/mL N Hydroxy [address] Vitamin D2 [place] [address] [phone] 25-Hydroxy Vitamin D3 6.3 ng/mL N 25-Hydroxy Vitamin D Total 79 ng/mL N 89 Laboratory test 12/07/2014 [facility] House Hemoglobin A1c 5.1 5-7 finding Vitamin D, 25 Hydroxy 08/10/2014 25-Hydroxy Vitamin D2 41 ng/mL N 90 25-Hydroxy Vitamin D3 6.3 ng/mL N 25-Hydroxy Vitamin D Total 47 ng/mL N 91 Iron & Iron Binding Capacity 08/10/2014 Iron 46 g/dL Low 50-212 Unsaturated Iron Binding 361 g/dL N Total Iron Binding Capacity 407 g/dL N 250-450 % Iron Saturation 11 % Low 15-55 Laboratory test finding 08/10/2014 Ferritin < 10.0 ng/mL Low 11-307 92 Vitamin B12 460 pg/mL N 180-914 93 Folate 11.39 ng/mL N >3.99 94 Laboratory test 08/10/2014 TSH (Thyroid 2.24 IU/mL N 0.34-5.60 95 finding Stimulating Horm) CBC Auto Diff 08/10/2014 [...] Cells % 0.1 N Lipid Panel - [facility] 08/10/2014 Creatine Kinase 76 U/L N 10-223 96 Comp Metabolic Panel 08/10/2014 Sodium 137 mmol/L [...] 83.1 N >60 Egfr 106.9 N >60 97 Lipid Profile (Trig/Chol/HDL) 08/10/2014 Triglycerides 150 mg/dL N 98 Cholesterol 159 mg/dL N 99 HDL Cholesterol 26.7 mg/dL N 100 LDL Cholesterol 102 mg/dL N 101 Comp Metabolic Panel 01/10/2014 [facility] Sodium 139 mmol/L 133-[address] [place] [address] [phone] Potassium 3.9 mmol/L 3.7-5.6 Chloride 107 mmol/L [...] Egfr Non- 88.2 >60 Egfr 113.4 >60 102 CBC Auto Diff 01/10/2014 [facility] White Blood 8.7 10^3/uL 4.8-10.[address] [place] [address] [phone] Red Blood Count 4.28 10^6/uL 4.0-5.4 Hemoglobin [...] Blood Cells % 0 Laboratory test 10/28/2013 [facility] Lamotrigine 8.4 g/mL 2.5 - 15.0 [address] [place] [address] [phone] Laboratory test 09/01/2013 [facility] Lamotrigine 7.6 g/mL 2.5 - 15.0 [address] [place] [address] [phone] Laboratory test 05/29/2013 [facility] Lamotrigine 10.9 g/mL 2.5 - 15.0 105 finding [address] [place] [address] [phone] Urine Culture 05/28/2013 [facility] Urine Culture (SEE NOTE) [address] [place] [address] [phone] Laboratory test 12/15/2012 [facility] Lamotrigine 5.2 g/mL 2.5 - 15.0 107 finding [address] [place] [address] [phone] Laboratory test 10/22/2012 [facility] Serum Negative Negative [address] [place] [address] [phone] Urine Culture 10/22/2012 [facility] Urine Culture (SEE NOTE) [address] [place] [address] [phone] Throat-Beta 09/25/2012 [facility] Throat Beta (SEE NOTE) [address] [place] [address] [phone] Laboratory test 09/03/2012 [facility] Lamotrigine 3.9 g/mL 2.5 - 15.0 111 finding [address] [place] [address] [phone] Comp Metabolic 07/14/2012 [facility] Sodium 138 mmol/L 135- [address] [place] [address] [phone] Potassium 4.3 mmol/L 3.5-5.0 Chloride 106 mmol/L 101-111 Co2 (Carbon Dioxide) 28.0 mmol/L 22-32 Anion Gap 4.0 mmol/L 2-11 112 Glucose 93 mg/dL 70-100 BUN 10 mg/dL 6-24 Creatinine 0.8 mg/dL 0.50-1.40 One Over Creatinine 1.25 BUN/Creatinine Ratio 12.5 8-20 Calcium 9.4 mg/dL 8.1-9.9 Total Protein 6.8 GM/DL 6.2-8.1 Albumin 3.9 GM/DL 3.6-5.4 Globulin 2.9 GM/DL 2-4 Albumin/Globulin Ratio 1.3 1-3 Bilirubin Total 0.5 mg/dL 0.4-1.5 113 Alkaline Phosphatase 59 U/L 30-110 Alt (SGPT) 16 U/L 14-54 Ast (Sgot) 19 U/L 12-42 eGFR Non- 84.2 > 60 eGFR 108.3 > 60 114 CBC No Diff 07/14/2012 [facility] White Blood Count 8.2 CUMM 4.8-10.[address] [place] [address] [phone] Red Cell Count 3.83 CUMM Low 4.2-5.4 Hemoglobin 12.3 g/dL 12.0-16.0 Hematocrit 37 % 35-47 Mean Corpuscular Volume 96 um3 79-97 Mean Corpuscular Hemoglob 32 pg High 27-31 Mean Corpuscular HGB Cone 34 g/dL 32-36 Redcell Distribution WDTH 15 % 10.5-15 Platelet Count 312 CUMM 150-450 Mean Platelet Volume 8.6 um3 7.4-10.4 Laboratory test 07/14/2012 [facility] Lamotrigine 3.8 g/mL 2.5 - [address] 15[address]0 [place] [address] [phone] 1 Because ethnic data is not always [...] levels of up to 20 mIU/mL 3 ADDITIONAL INFORMATION This test was developed and its performance characteristics determined by [facility] in a manner consistent with CLIA requirements. This test has not been cleared or approved by the U.S. Food and Drug Administration. Test Performed by: [facility] - [facility] [address] [place] [address] 4 *Ascorbic acid is present which may interfere with detection of blood. 5 SEE RESULT BELOW Name: DEAN PENG Lee : [address]: Marito Shaikh MD Acct: [id number] Unit: [id number] AGE: 38 Location: ED Re02/13/19 SEX: F Status: DEP ER SPEC: [id number] DEBBIE: 02/13/[address] [facility] [address]: Nain KOHLER REQ: [id number] RECD: 02/13/198755 STATUS: TOMASA COCHRAN DR: [facility] Jose Bell ADHESIVE BANDAGE MACHINE OPERATOR _ SOURCE: URINE SPDESC: ORDERED: Urine Culture Procedure Result Reported Site Urine Culture Final 02/15/19- 0750 ML No growth of clinically significant organisms * ML - Main Lab . END OF REPORT DEPARTMENT OF PATHOLOGY, [address] [place] [address] Ty Guo M.D. Director [facility] # [id number] Sample Supervisor: [id number] 7 SEE RESULT BELOW Name: DEAN PENG : [address]: Scooter Copeland Acct: [id number] Unit: [id number] AGE: 38 Location: ED Re01/30/19 SEX: F Status: REG ER SPEC: [id number] DEBBIE: 01/30/[address]: Helena KOHLER REQ: [id number] RECD: 01/30/19 STATUS: TOMASA COCHRAN DR: Jose Bell ADHESIVE BANDAGE MACHINE OPERATOR _ SOURCE: NASAL SPDESC: ORDERED: Flu A B Request Procedure Result Reported Site Rapid Influenza A B Request Final 01/30/19- 1253 ML Specimen received for Influenza A/B Molecular testing * ML - Main Lab . END OF REPORT DEPARTMENT OF PATHOLOGY, [address] [place] [address] Ty Guo M.D. Director TL # [id number] 8 SEE RESULT BELOW Name: DEAN PENG Lee : [address]: Marito Shaikh MD Acct: [id number] Unit: [id number] AGE: 38 Location: ED Re01/17/19 SEX: F Status: DEP ER SPEC: [id number] DEBBIE: 01/17/[address]: Marito Shaikh MD REQ: [id number] RECD: 01/17/19 STATUS: TOMASA COCHRAN DR: Jose Bell ADHESIVE BANDAGE MACHINE OPERATOR _ SOURCE: URINE SPDESC: ORDERED: Urine Culture Procedure Result Reported Site Urine Culture Final 01/18/19- 1216 ML No growth of clinically significant organisms * ML - Main Lab . END OF REPORT DEPARTMENT OF PATHOLOGY, [address] [place] [address] Ty Guo M.D. Director [facility] # [id number] 9 <5.0 Negative 5.0 - 25.0 Indeterminate (Repeat testing recommended after 72 hours) >25.0 Positive Perimenopausal women can display HCG levels of up to 20 mIU/mL 10 Because ethnic data is not always [...] 5 Kidney failure <15 (or dialysis) 11 [facility] Severe Sepsis and Septic Shock Management Bundle Measure requires all lactic acids initially measuring >2.0 mmol/L be repeated. 12 *Ascorbic acid is present which may interfere with detection of blood. 13 The urine specimen was tested at the listed cutoffs: Drug class test level (ng/mL) Amphetamines 500 Barbiturates 200 Benzodiazepine metabolites 200 Cocaine metabolites 150 Cannabinoids 50 Opiates 300 Pcp 25 Specimen was received without chain of custody. Results should be used for medical purposes only. 14 [id number] 15 ADDITIONAL INFORMATION This test was developed and its performance characteristics determined by [facility] in a manner consistent with CLIA requirements. This test has not been cleared or approved by the U.S. Food and Drug Administration. Test Performed by: [facility] - [facility] [address] [facility], [place] [address] 16 Because ethnic data is not always [...] 5 Kidney failure <15 (or dialysis) 17 Sample Supervisor: [id number] 19 SEE RESULT BELOW Name: DEAN PENG : [address]: Kenrick Duran MD Acct: [id number] Unit: [id number] AGE: 38 Location: [facility] Re01/04/19 SEX: F Status: DEP ER SPEC: [id number] DEBBIE: 01/04/19-[address]: Kenrick Duran MD REQ: [id number] RECD: 01/04/19160 STATUS: TOMASA COCHRAN DR: Jose Bell ADHESIVE BANDAGE MACHINE OPERATOR _ SOURCE: URINE SPDESC: ORDERED: Urine Culture COMMENTS: [id number] Procedure Result Reported Site Urine Culture Final 01/05/19- 1222 ML No growth of clinically significant organisms * ML - Main Lab . END OF REPORT DEPARTMENT OF PATHOLOGY, [address], [place], [place] [address] Ty Guo M.D. Director TL # [id number] 20 SEE RESULT BELOW Name: DEAN PENG : [address]: Kyree Gutierrez MD Acct: [id number] Unit: [id number] AGE: 38 Location: [facility] Re12/29/18 SEX: F Status: DEP ER SPEC: [id number] DEBBIE: 12/29/[address] [facility] [address]: Kyree Gutierrez MD REQ: [id number] RECD: 12/29/18 STATUS: TOMASA COCHRAN DR: Jose Bell ADHESIVE BANDAGE MACHINE OPERATOR _ SOURCE: STOOL SPDESC: ORDERED: Fecal Lactoferr [...] . END OF REPORT DEPARTMENT OF PATHOLOGY, [address] [place] [address] Ty Guo M.D. Director [facility] # [id number] 21 Because ethnic data is not always [...] 5 Kidney failure <15 (or dialysis) 22 <5.0 Negative 5.0 - 25.0 Indeterminate (Repeat testing recommended after 72 hours) >25.0 Positive Perimenopausal women can display HCG levels of up to 20 mIU/mL 23 Sample Supervisor: [id number] 24 SEE RESULT BELOW Name: DEAN PENG : [address]: Donna Peguero MD Acct: [id number] Unit: [id number] AGE: 38 Location: [facility] Re11/17/18 SEX: F Status: REG REF SPEC: [id number] DEBBIE: 11/17/[address]: Donna Peguero MD REQ: [id number] RECD: 11/17/18 STATUS: COMP _ SOURCE: THROAT SPDESC: ORDERED: Strep A Request COMMENTS: [id number] Procedure Result Reported Site Rapid Strep A Request Final 11/17/181848 ML Specimen received for Rapid Strep A Molecular testing * ML - Main Lab . END OF REPORT DEPARTMENT OF PATHOLOGY, [address] [place] [address] Ty Guo M.D. Director [facility] # [id number] 25 Sample Supervisor: [id number] Normal Range 180 to 914 Indeterminate Range 145 to 180 Deficient Range <145 27 Desirable: <150 Borderline High: 150-199 High: 200-499 Very High: >500 28 Desirable: <200 Borderline High: 200-239 High: >239 29 Low: <40 Desirable: 40-60 High: >60 30 Desirable: <100 Near Optimal: 100-129 Borderline High: 130-159 High: 160-189 Very High: >189 31 FASTING 10 HOUR 32 Desirable: <150 Borderline High: 150-199 High: 200-499 Very High: >500 33 Desirable: <200 Borderline High: 200-239 High: >239 34 Low: <40 Desirable: 40-60 High: >60 35 Desirable: <100 Near Optimal: 100-129 Borderline High: 130-159 High: 160-189 Very High: >189 36 Sample Supervisor: [id number] 37 SEE RESULT BELOW Name: DEAN PENG : [address]: Cydney Chen MD Acct: [id number] Unit: [id number] AGE: 37 Location: ED Re04/10/18 SEX: F Status: REG ER SPEC: [id number] DEBBIE: 04/10/[address]: Cydney Chen MD REQ: [id number] RECD: 04/10/18 STATUS: COMP VERONICAHR DR: Tanvir Vizcarra MD _ SOURCE: THROAT SPDESC: ORDERED: Strep A Request Procedure Result Reported Site Rapid Strep A Request Final 04/10/18236 ML Specimen received for Rapid Strep A Molecular testing * - [facility] . END OF REPORT DEPARTMENT OF PATHOLOGY, [address] [place] [address] Ty Guo M.D. Director [facility] # [id number] 38 ADDITIONAL INFORMATION This test was developed and its performance characteristics determined by [facility] in a manner consistent with CLIA requirements. This test has not been cleared or approved by the U.S. Food and Drug Administration. Test Performed by: [address] [address] 39 Because ethnic data is not always [...] 5 Kidney failure <15 (or dialysis) 40 ADDITIONAL INFORMATION This test was developed and its performance characteristics determined by [facility] in a manner consistent with CLIA requirements. This test has not been cleared or approved by the U.S. Food and Drug Administration. Test Performed by: [facility] [address] [address] 41 Because ethnic data is not always [...] 5 Kidney failure <15 (or dialysis) 42 Therapeutic target for the treatment of diabetes Mellitus patients is <7% HBA1C, and in selective patients <6.0%.Please refer to [employer] Diabetic care guidelines for further information. 43 SEE RESULT BELOW Name: DEAN PENG : [address]: Tanvir Vizcarra MD Acct: [id number] Unit: [id number] AGE: 36 Location: [facility] Re06/18/17 SEX: F Status: REG REF SPEC: [id number] DEBBIE: 06/18/17-145[address] DR: Tanvir Vizcarra MD REQ: [id number] RECD: 06/18/17 STATUS: COMP _ SOURCE: URINE KAISER HAYWARD: ORDERED: Urine Culture COMMENTS: [id number] Urine Source: Random Procedure Result Reported Site Urine Culture Final 06/19/17- 1623 ML No growth of clinically significant organisms * ML - [facility] ([facility]) . END OF REPORT * ML=Testing performed at Main Lab DEPARTMENT OF PATHOLOGY, [address] [place] [address] Ty Guo M.D. Director [facility] # [id number] 44 ADDITIONAL INFORMATION The thyroglobulin antibody testing method is an immunoenzymatic assay manufactured by [employer] and performed on the [employer] DXI 800. Values obtained from different assay methods or kits may be different and cannot be used interchangeably. The results cannot be interpreted as absolute evidence for the presence or absence of malignant disease. Test Performed by: [facility] - [address] [address] 45 Because ethnic data is not always [...] 5 Kidney failure <15 (or dialysis) 46 SEE RESULT BELOW Name: DEAN PENG : [address]: Vance Garnett DO Acct: [id number] Unit: [id number] AGE: 36 Location: ED Re04/04/17 SEX: F Status: DEP ER SPEC: [id number] DEBBIE: 04/04/17-[address]: Vance Garn[facility] DO REQ: [id number] RECD: 04/04/17 STATUS: TOMASA COCHRAN DR: [facility] Baldev Bonner MD _ SOURCE: URINE KAISER HAYWARD: ORDERED: Urine Culture Procedure Result Reported Site Urine Culture Final 04/06/17- 0920 ML No growth of clinically significant organisms * ML - MAIN LAB ([facility]) . END OF REPORT * ML=Testing performed at Main Lab DEPARTMENT OF PATHOLOGY, [address] [place] [address] Ty Guo M.D. Director [facility] # [id number] 47 [facility] Severe Sepsis and Septic Shock Management Bundle Measure requires all lactic acids initially measuring >2.0 mmol/L be repeated. 48 SEE RESULT BELOW Name: DEAN PENG : [address]: Scooter Copeland Acct: [id number] Unit: [id number] AGE: 36 Location: ED Re04/04/17 SEX: F Status: REG ER SPEC: [id number] DEBBIE: 04/04/[address]: Vance Garnett DO REQ: [id number] RECD: 04/04/17 STATUS: TOMASA COCHRAN DR: [facility] Baldev Bonner MD _ SOURCE: THROAT SPDESC: ORDERED: Strep A Request Procedure Result Reported Site Rapid Strep A Request Final 04/04/171046 ML Specimen received for Rapid Strep A Molecular testing * ML - [facility] ([facility]) . END OF REPORT * ML=Testing performed at Main Lab DEPARTMENT OF PATHOLOGY, [address] [place] [address] Ty Guo M.D. Director [facility] # [id number] 49 99th percentile=0.04 ng/mL Troponin results at [facility] and [facility] are not interchangeable. 50 Sample Supervisor: [id number] 51 ADDITIONAL INFORMATION This test was developed and its performance characteristics determined by [facility] in a manner consistent with CLIA requirements. This test has not been cleared or approved by the U.S. Food and Drug Administration. Test Performed by: [facility] [place] [address] Digital Assistant: Kenrick Hightower II, M.D., Ph.D. 52 REFERENCE VALUE Reference values depend on clinical use: Anticonvulsant: 5.0-20.0 mcg/mL Psychiatric: 2.0-8.0 mcg/mL ADDITIONAL INFORMATION This test was developed and its performance characteristics determined by [facility] in a manner consistent with CLIA requirements. This test has not been cleared or approved by the U.S. Food and Drug Administration. Test Performed by: [facility] - [address] [address] Digital Assistant: Kenirck Hightower II, M.D., Ph.D. 53 Because ethnic data is not always readily [...] 15-29 5 Kidney failure <15 (or dialysis) 54 [facility] Severe Sepsis and Septic Shock Management Bundle Measure requires all lactic acids initially measuring >2.0 mmol/L be repeated. 55 <5.0 Negative 5.0 - 25.0 Indeterminate (Repeat testing recommended after 72 hours) >25.0 Positive Perimenopausal women can display HCG levels of up to 20 mIU/mL 56 >100 to <200 pg/mL: likely compensated congestive heart failure (CHF) 200 to 400 pg/mL: likely moderate CHF >400 pg/mL: likely moderate to severe CHF 57 Test Performed by: [facility] [address] [place] [address] Digital Assistant: Kenrick Hightower II, M.D., Ph.D. 58 Because [...] 5 Kidney failure <15 (or dialysis) 59 Acute inflammation: >10.00 60 Reference Range and Interpretation: TnI (ng/mL) Interpretation Less Than 0.03 ng/mL Not supportive of diagnosis of MD 0.03 - 0.50 ng/mL Indeterminate: suggest serial studies if clinically indicated. Greater than 0.5 ng/mL Consistent with diagnosis of MD 61 Because ethnic data is not always [...] 5 Kidney failure <15 (or dialysis) 62 FASTING 10 HOUR 63 FASTING 10 HOUR 64 Desirable <150 Borderline high 150-199 High 200-499 Very High >500 65 Desirable <200 Borderline high 200-239 High >239 66 Low <40 Desirable: 40-60 High: >60 67 Desirable: <100 mg/dL Near Optimal: 100-129 mg/dL Borderline High: 130-159 mg/dL High: 160-189 mg/dL Very High: >189 mg/dL 68 FASTING 10 HOUR 69 SEE RESULT BELOW Name: DEAN PENG: [address]: Jeremiah Zendejas ADHESIVE BANDAGE MACHINE OPERATOR Acct: [id number] Unit: [id number] AGE: 35 Location: [facility] Re12/20/15 SEX: F Status: REG REF SPEC: [id number] DEBBIE: 12/20/15-[address]: Jeremiah Zendejas ADHESIVE BANDAGE MACHINE OPERATOR REQ: [id number] RECD: 12/20/15-1804 STATUS: SOUT _ ORDERED: IMAGE ANALYSIS, HPV/Thin [...] was evaluated with the assistance of the KigoPrep Test Imaging System. Due to cytologic findings at the laboratory mechanical technician microscope, comprehensive manual rescreening by a Apprentice Cosmetologist may be required. The Pap Smear is [...] evaluated every 1-3 years. RUN DATE: 12/22/15 [facility] LIVE PAGE 1 Patient: DEAN PENG [id number] (Continued) CONTINUED ON NEXT PAGE * ML=Testing performed at Main Lab DEPARTMENT OF PATHOLOGY, [address] [place] [address] Ty Guo M.D. Director [facility] # [id number] 70 The high-risk HPV types detected by the assay include: 16, 18, 31, 33, 35, 39, 45, 51, 52, 56, 58, 59, 66, and 68. 71 SEE RESULT BELOW Name: DEAN PENG : [address]: Jeremiah Zendejas ADHESIVE BANDAGE MACHINE OPERATOR Acct: [id number] Unit: [id number] AGE: 34 Location: LAB Re08/14/15 SEX: F Status: REG REF SPEC: [id number] DEBBIE: 08/14/15-[address]: Jeremiah Zendejsa ADHESIVE BANDAGE MACHINE OPERATOR REQ: [id number] RECD: 08/14/15 STATUS: COMP _ SOURCE: URINE SPDESC: ORDERED: Urine Culture Procedure Result Verified Site Urine Culture Final 08/16/15- 1127 ML Organism 1 NORMAL JUDE [place] Gap Count 25-50,000 (Moderate) CFU/ML * ML - [facility] ([facility]) . END OF REPORT * ML=Testing performed at Main Lab DEPARTMENT OF PATHOLOGY, [address] [place] [address] Ty Guo M.D. Director [facility] # [id number] 72 Comment: f 73 Presumptive Positive 74 The urine specimen was tested at the listed cutoffs: Drug class test level (ng/mL) Amphetamines 500 Barbituates 200 Benzodiazepine metabolites 200 Cocaine metabolites 150 Cannabinoids 50 Opiates 300 Pcp 25 This is a screening procedure. Positive results are not confirmed. Specimen was received without chain of custody. Results should be used for medical purposes only. 75 Test Performed by: [address] [address] Digital Assistant: Kenrick Hightower II, M.D., Ph.D. 76 SEE RESULT BELOW Name: DEAN PENG : [address]: Justin Tom MD Acct: [id number] Unit: [id number] AGE: 34 Location: ED Re06/11/15 SEX: F Status: DEP ER SPEC: [id number] DEBBIE: 06/11/[address] [facility] [address]: Justin Tom MD REQ: [id number] RECD: 06/11/15 STATUS: TOMASA COCHRAN DR: [facility] Jeremiah Zendejas ADHESIVE BANDAGE MACHINE OPERATOR _ SOURCE: URINE SPDESC: ORDERED: Urine Culture Procedure Result Verified Site Urine Culture Final 06/14/15- 938 ML Organism 1 NORMAL JUDE [place] Gap Count >100,000 (Many) CFU/ML * ML - MAIN LAB ([facility]) . END OF REPORT * ML=Testing performed at Main Lab DEPARTMENT OF PATHOLOGY, [address] [place] [address] Ty Guo M.D. Director [place] # [id number] 77 SEE RESULT BELOW Name: DEAN PENG : [address]: Jeremiah Zendejas NP Acct: [id number] Unit: [id number] AGE: 34 Location: [facility] Re05/16/15 SEX: F Status: REG REF SPEC: [id number] DEBBIE: 05/16/15-[address]: Jeremiah Zendejas ADHESIVE BANDAGE MACHINE OPERATOR REQ: [id number] RECD: 05/16/15 STATUS: COMP _ SOURCE: THROAT SPDESC: ORDERED: Throat Culture Procedure Result Verified Site Throat Culture Final 05/18/15- 0752 ML Organism 1 NORMAL JUDE Quantity 2+ Throat cultures are clinically indicated to detect the presence of group A strep, arcanobacterium and yeast. In certain cases, predominating organisms will be reported. * ML - MAIN LAB ([facility]) . END OF REPORT * ML=Testing performed at Main Lab DEPARTMENT OF PATHOLOGY, [address] [place] [address] Ty Guo M.D. Director [facility] # [id number] 78 N 79 Because ethnic data is not always readily [...] 15-29 5 Kidney failure <15 (or dialysis) 80 RUN DATE: 02/19/15 [facility] LIVE PAGE 1 RUN TIME: [address] [place] [address] Specimen Inquiry Name: DEAN PENG : [address]: Srinivas Boston MD Acct: [id number] Unit: [id number] AGE: 34 Location: ED Re02/16/15 SEX: F Status: DEP ER SPEC: [id number] DEBBIE: 02/16/[address]: Hernando House DO REQ: [id number] RECD: 02/16/15 STATUS: TOMASA COCHRAN DR: [facility] Marito Turpin III, MD _ SOURCE: URINE SPDESC: ORDERED: Urine Culture Procedure Result Verified Site Urine Culture Final 02/19/15- 0834 ML Organism 1 ESCHERICHIA COLI Pecan Gap Count 25-50,000 (Moderate) CFU/ML Organism 2 NORMAL JUDE [place] Gap Count 25-50,000 (Moderate) CFU/ML 1. ESCHERICHIA COLI [...] antibiotic reporting. * ML - MAIN LAB ([facility]) . END OF REPORT * ML=Testing performed at Main Lab DEPARTMENT OF PATHOLOGY, [address] [place] [address] Ty Guo M.D. Director [facility] # [id number] 81 Because ethnic data is not always readily [...] 15-29 5 Kidney failure <15 (or dialysis) 82 Test Performed by: [place] [address] Digital Assistant: Kenrick Hightower II, M.D., Ph.D. 83 Because ethnic data is not always readily [...] 15-29 5 Kidney failure <15 (or dialysis) 84 RUN DATE: 02/02/15 [facility] LIVE PAGE 1 RUN TIME: [address] [place] [address] Specimen Inquiry Name: DEAN PENG : [address]: Jeremiah Zendejas ADHESIVE BANDAGE MACHINE OPERATOR Acct: [id number] Unit: [id number] AGE: 34 Location: [facility] Re01/26/15 SEX: F Status: REG REF SPEC: [id number] DEBBIE: 01/26/15-[address]: Tanvir Vizcarra MD REQ: [id number] RECD: 01/26/15 STATUS: SHAUN COCHRAN DR: Jeremiah Zendejas ADHESIVE BANDAGE MACHINE OPERATOR _ ORDERED: GOM METH STN, PASS STAIN, [...] performed at Main Lab DEPARTMENT OF PATHOLOGY, [facility] [employer] [place], [place] [address] Ty Guo M.D. Director CLIA # [id number] RUN DATE: 02/02/15 [facility] LIVE PAGE 1 RUN TIME: 1026 [facility] [employer] [place], [place] [address] Specimen Inquiry Name: DEAN PENG : [address]: Jeremiah Zendejas NP Acct: [id number] Unit: [id number] AGE: 34 Location: [facility] Re01/26/15 SEX: F Status: REG REF SPEC: [id number] DEBBIE: 01/26/15-[address]: Tanvir Vizcarra MD REQ: [id number] RECD: 01/26/15 STATUS: SHAUN COCHRAN DR: Jeremiah Zendejas ADHESIVE BANDAGE MACHINE OPERATOR _ ORDERED: GOM METH STN, PASS STAIN, [...] performed at Main Lab DEPARTMENT OF PATHOLOGY, [facility] [employer] [place], [place] [address] Ty Guo M.D. Director [facility] # [id number] RUN DATE: 02/02/15 [facility] LIVE PAGE 2 RUN TIME: 1026 [facility] [employer] [place], [place] [address] Specimen Inquiry Patient: DEAN PENG [id number] (Continued) MICROSCOPIC DESCRIPTION (Continued) Signed (signature on file) Griselda Garsia MD 0928 END OF REPORT * ML=Testing performed at Main Lab DEPARTMENT OF PATHOLOGY, [address] [place] [address] Ty Guo M.D. Director [facility] # [id number] 86 Test Performed by: [place] [address] Digital Assistant: Kenrick Hightower II, M.D., Ph.D. 87 Test Performed by: [place] [address] Digital Assistant: Kurt Hinton M.D. 88 Test Performed by: [place] [address] Digital Assistant: Kurt Hinton M.D. 89 Interpretation: 51-80 ng/mL (increased risk of hypercalciuria) REFERENCE VALUE 25-HYDROXY D TOTAL (D2+D3) Optimum levels in the healthy population are 20-50, patients with bone disease may benefit from higher levels within this range. Test Performed by: [facility] [place] [id number] Digital Assistant: Kurt Hinton M.D. 90 FASTING 10 HOUR 91 REFERENCE VALUE 25-HYDROXY D TOTAL (D2+D3) Optimum levels in the healthy population are 20-50, patients with bone disease may benefit from higher levels within this range. Test Performed by: [place] [id number] Digital Assistant: Kurt Hinton M.D. 92 FASTING 10 HOUR 93 Normal Range 180 to 914 Indeterminate Range 145 to 180 Deficient Range <145 94 FASTING 10 HOUR 95 FASTING 10 HOUR 96 FASTING 10 HOUR 97 Because ethnic data is not always readily [...] 15-29 5 Kidney failure <15 (or dialysis) 98 Desirable <150 Borderline high 150-199 High 200-499 Very High >500 99 Desirable <200 Borderline high 200-239 High >239 100 Low <40 Desirable: 40-60 High: >60 101 Desirable <100 Near Optimal 100-129 Borderline high 130-159 High 160-189 Very High >189 102 Because ethnic data is not always readily [...] 15-29 5 Kidney failure <15 (or dialysis) 103 Test Performed by: [place] [address] Digital Assistant: Luis Altamirano III, M.D. 104 Test Performed by: [place] [address] Digital Assistant: Luis Altamirano III, M.D. 105 Test Performed by: [place] [address] Digital Assistant: Luis Altamirano III, M.D. 106 RUN DATE: 05/30/13 [facility] LIVE PAGE 1 RUN TIME: 11[address] [place], [place] [address] Specimen Inquiry Name: DEAN KEYES Lee : [address]: Momo Diaz MD Acct: [id number] Unit: [id number] AGE: 32 Location: [facility] Re05/28/13 SEX: F Status: DEP ER SPEC: [id number] DEBBIE: 05/28/13-[address] [facility] [address]: Momo Diaz MD REQ: [id number] RECD: 05/28/13 STATUS: TOMASA COCHRAN DR: Tanvir Vizcarra MD _ SOURCE: URINE SPDESC: ORDERED: Urine Culture QUERIES: Medent Number [id number] Procedure Result Verified Site Urine Culture Final 05/30/13- 1112 ML Organism 1 NORMAL JUDE Pec[place] Gap Count 25-50,000 (Moderate) CFU/ML END OF REPORT * ML=Testing performed at Main Lab DEPARTMENT OF PATHOLOGY, [address] [place] [address] Ty Guo M.D. Director [facility] Permit #[id number] 107 Test Performed by: [address] [address] Digital Assistant: Luis Altamirano III, M.D. 108 This test detects intact HCG only and is indicated for the early detection of . 109 RUN DATE: 10/24/12 [facility] LIVE PAGE 1 RUN TIME: [address] [place] [address] Specimen Inquiry Name: DEAN KEYES : [address]: Charline BAINS,Lynette OsmanBryant Acct: [id number] Unit: [id number] AGE: 32 Location: [facility] Re10/22/12 SEX: F Status: DEP ER SPEC: [id number] DEBBIE: 10/22/12 [facility] [address]: Charline BAINS,Lynette Davis REQ: [id number] RECD: 10/22/12 STATUS: TOMASA COCHRAN DR: GISSELL Carlin MD,Yudi Yadav MD,Clinton Blanco _ SOURCE: URINE SPDESC: ORDERED: Urine Culture Procedure Result Verified Site Urine Culture Final 10/24/12- 927 ML Organism 1 STREP GROUP B [place] Gap Count 25-50,000 (Moderate) CFU/ML Organism 2 NORMAL JUDE [place] Gap Count 75-100,000 (Many) CFU/ML Susceptibility testing of penicillins and other B-lactams approved by FDA for treatment of Streptococcus pyogenes (Group A Strep) and Streptococcus agalactiae (Group B Strep) is not necessary for clinical purposes and need not be done routinely, since as with vancomycin, resistant strains have not been recognized. (CLSI Q900-A65;p.66) Positive isolates will be saved for one week. Please call the Microbiology Laboratory if further susceptibility testing is needed. END OF REPORT * ML=Testing performed at Main Lab DEPARTMENT OF PATHOLOGY, [facility] [employer] [place], [place] [address] Ty Guo M.D. Director [facility] Permit #[id number] 110 RUN DATE: 09/27/12 [facility] LIVE PAGE 1 RUN TIME: 801 [facility] [employer] [place], [place] [address] Specimen Inquiry Name: DEAN KEYES Lee : [address]: Lucas Arce MD Acct: [id number] Unit: [id number] AGE: 31 Location: [facility] Re09/25/12 SEX: F Status: DEP ER SPEC: [id number] DEBBIE: 09/25/[address] [facility] [address]: Lucas Arce MD REQ: [id number] RECD: 09/25/12 STATUS: TOMASA COCHRAN DR: GISSELL Carlin MD,Yudi _ SOURCE: THROAT SPDESC: ORDERED: Throat Beta Str Procedure Result Verified Site Throat Beta Strep Culture Final 09/27/12- 0802 ML Negative For Group A Beta Streptococcus END OF REPORT * ML=Testing performed at Main Lab DEPARTMENT OF PATHOLOGY, [address] [place] [address] Ty Guo M.D. Director [facility] Permit #[id number] 111 Test Performed by: [place] [address] Digital Assistant: Luis Altamirano III, M.D. R 112 Anion gap measurement may be of limited value in the presence of any alkalosis, especially in a combined acid base disorder. . 113 A metabolite of Naproxen, O-desmethylnaproxen, has been shown to interfere with the [place] method for measuring total bilirubin. Samples from patients who have taken Naproxen have shown spurious elevation in total bilirubin levels. 114 Because ethnic data is not always readily [...] 15-29 5 Kidney failure <15 (or dialysis) 115 Test Performed by: [address] [address] Digital Assistant: uLis Altamirano III, M.D. Procedures Date Code Description Status 08/20/2017 97613 Polysomnography Sleep Staging 4+ Parameters Completed 07/03/2016 75542 EEG Monitoring & Video Recording Completed 07/02/2016 01159 EEG Monitoring & Video Recording Completed 07/01/2016 18967 EEG Monitoring & Video Recording Completed 06/30/2016 38024 EEG Monitoring & Video Recording Completed 06/29/2016 86036 EEG Monitoring & Video Recording Completed 06/28/2016 89014 EEG Monitoring & Video Recording Completed 01/15/2016 75036 Pulmonary Function><Bronchodil Completed 12/21/2015 01797 EKG Tracing & Interpretation Completed 12/20/2015 22017 EKG Tracing & Interpretation Completed 01/26/2015 32778 Biopsy Skin Lesion Single Completed 12/28/2014 78043 EEG Recording Awake & Asleep Completed 01/15/2013 50062 ECHO Stress Test Incl Perf Contiuous ekg Monitoring W/Phys Completed Superv 12/15/2012 50689 Cardiac Event Monitor Completed 12/11/2012 81665 ECHO Transthoracic, Real-Time 2D With Doppler And Color Completed Flow 11/18/2012 14736 EKG Tracing & Interpretation Completed 09/03/2012 18018 Holter Monitor Review (24 hr)dr review & interp only Completed 09/01/2012 99290 Holter Monitor Review (24 hr)dr review & interp only Completed 08/21/2012 33106 EEG Recording Awake & Asleep Completed Encounters Type Date Location Provider Dx Diagnosis Office Visit 02/17/2019 [facility] Internal Zsofia Ray, F44.5 Conversion disorder 11:40a Medicine DEVELOPMENT DISABILITY SPECIALIST with seizures or convulsions F41.9 Anxiety disorder, unspecified J30.9 Allergic rhinitis, unspecified N20.0 Calculus of kidney Office Visit 01/19/2019 [facility] Internal Medicine Tawny R42 Dizziness and 11:00a MD Vega giddiness Office Visit 01/15/2019 [facility] Darion G43.009 Migraine w/o 1:00p Clinic JANNIE Mena aura, not intractable, w/o status migrainosus F44.5 Conversion disorder with seizures or convulsions Office Visit 12/08/2018 11:00a Scooter Mena, G43.009 Migraine w/o aura, Neurologic ADHESIVE BANDAGE MACHINE OPERATOR not intractable, [facility] w/o status migrainosus F44.5 Conversion disorder with seizures or convulsions Office Visit 11/17/2018 3:00p [facility] Internal Donna Peguero, J02.9 Acute pharyngitis, Medicine - MD unspecified [address] H60.93 Unspecified otitis externa, bilateral Office Visit 10/21/2018 1:20p [facility] Internal Jose Bell, J01.90 Acute sinusitis, Medicine - DEVELOPMENT DISABILITY SPECIALIST unspecified [address] R05 Cough H66.92 Otitis media, unspecified, left ear Office Visit 08/19/2018 1:00p [facility] Internal Jose Bell, J01.90 Acute sinusitis, Medicine - DEVELOPMENT DISABILITY SPECIALIST unspecified [address] R05 Cough Z23 Encounter for immunization Office Visit 07/15/2018 1:20p [facility] Internal Jose Bell, Z00.01 Encounter for Medicine - [place] DEVELOPMENT DISABILITY SPECIALIST general adult Rd medical exam w abnormal findings G47.33 Obstructive sleep apnea (adult) (pediatric) J45.30 Mild persistent asthma, uncomplicated L03.116 Cellulitis of left lower limb M25.562 Pain in left knee D50.9 Iron deficiency anemia, unspecified 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 D17.1 Benign lipomatous neoplasm of skin, subcu of trunk Z68.43 Body mass index (BMI) 50-59.9 , adult Office Visit 05/08/2018 1:40p [facility] Internal Zsofia E03.9 Hypothyroidism, Medicine - Ray, DEVELOPMENT DISABILITY SPECIALIST unspecified [address] D50.9 Iron deficiency anemia, unspecified K13.79 Other lesions of oral mucosa J06.9 Acute upper respiratory infection, unspecified Office Visit 04/22/2018 11:00a [facility] Internal Andreaofimagaly Bell, H81.399 Other peripheral Medicine - DEVELOPMENT DISABILITY SPECIALIST vertigo, [address] unspecified ear G40.909 Epilepsy, unsp, not intractable, without status epilepticus E03.9 Hypothyroidism, unspecified E66.01 Morbid (severe) obesity due to excess calories N92.0 Excessive and frequent menstruation with regular cycle Z13.220 Encounter for screening for lipoid disorders Office Visit 03/10/2018 2:40p [facility] Internal Edison H81.399 Other peripheral Elizabeth Vizcarra M.D. vertigo, [address] unspecified ear G40.909 Epilepsy, unsp, not intractable, without status epilepticus Office Visit 01/21/2018 9:40a [facility] Internal Baldev Beck J45.40 Moderate persistent Elizabeth Bonner M.D.,FACP asthma, [address] uncomplicated Z23 Encounter for immunization Office Visit 01/15/2018 [facility] Internal Tanvir E03.9 Hypothyroidism, 1:40p [...] intractable, without status migrainosus Office Visit 10/16/2017 [facility] Internal Tanvir E03.9 Hypothyroidism, 1:40p [...] Sleep Services Of [place] apnea (adult) [facility] (pediatric) E66.01 Morbid (severe) obesity due to excess calories Office Visit 07/21/2017 10:15a Pulmonology And Sleep Diana Escalona, R06.83 Snoring [facility] J44.9 Chronic obstructive pulmonary disease, unspecified E66.01 Morbid (severe) obesity due to excess calories Office 07/18/2017 Neurohospitalist Clinton Blanco G43.909 Migraine, unsp, Visit 3:00p Clinic Pablo Yadav not intractable, without status migrainosus F44.5 Conversion disorder with seizures or convulsions Office Visit 07/17/2017 [facility] Francia Ramey E03.9 Hypothyroidism, 1:20p Elizabeth Vizcarra M.D. unspecified [address] E66.01 Morbid (severe) obesity due to excess calories R73.9 Hyperglycemia, unspecified Office Visit 06/18/2017 1:20p [facility] Internal Tanvir Vizcarra, R30.0 Dysuria Medicine M.DBryant Office Visit 05/15/2017 2:00p [facility] Internal Tanvir Vizcarra, Z00.00 Encntr for Medicine - MBryantDBryant general adult [address] medical exam w/o abnormal findings D17.9 Benign lipomatous neoplasm, unspecified G47.33 Obstructive sleep apnea (adult) (pediatric) F33.9 Major depressive disorder, recurrent, unspecified Office 04/18/2017 [facility] Clinton Blanco G43.909 Migraine, unsp, Visit 10:15a Elle Yadav M.D. not intractable, without status migrainosus F44.5 Conversion disorder with seizures or convulsions Office Visit 04/08/2017 11:20a [facility] Francia Vizcarra, J06.9 Acute upper Medicine - M.DBryant respiratory [address] infection, unspecified H81.393 Other peripheral vertigo, bilateral E03.9 Hypothyroidism, unspecified Office Visit 04/02/2017 [facility] Francia Gruber K08.89 Other specified 2:20p Elizabeth Turpin M.D. disorders of teeth [place] and supporting structures Office Visit 03/25/2017 [facility] Francia Ramey K05.00 Acute gingivitis, 3:40p Elizabeth Vizcarra plaque induced [address] M.D. Office Visit 10/31/2016 [facility] Francia Zendejas JJames Acute nasopharyngitis 2:20p Medicine - ADHESIVE BANDAGE MACHINE OPERATOR [common cold] [address] Office Visit 10/29/2016 [facility] Francia Zendejas F41.9 Anxiety disorder, 11:00a Medicine - ADHESIVE BANDAGE MACHINE OPERATOR unspecified [address] F33.9 Major depressive disorder, recurrent, unspecified F44.5 Conversion disorder with seizures or convulsions G43.909 Migraine, unsp, not intractable, without status migrainosus Z02.71 Encounter for disability determination Office 10/17/2016 [facility]ist Clinton Blanco G43.909 Migraine, unsp, Visit 10:00a Clinic Pablo Yadav not intractable, without status migrainosus F44.5 Conversion disorder with seizures or convulsions Office Visit 10/07/2016 10:40a [facility] Jeremiah Armenian, G43.909 Migraine , unsp, Medicine - ADHESIVE BANDAGE MACHINE OPERATOR not intractable, [address] without status migrainosus F33.9 Major depressive disorder, recurrent, unspecified D48.5 Neoplasm of uncertain behavior of skin R22.2 Localized swelling, mass and lump, trunk Office Visit 07/04/2016 [facility] Kady Baker F44.5 Conversion 11:01a Clinic disorder with seizures or convulsions Office Visit [...] intractable, without status migrainosus Office Visit 06/29/2016 [facility] Baker F44.5 Conversion 10:58a Clinic MD disorder with seizures or convulsions G43.909 Migraine, unsp, not intractable, without status migrainosus Office Visit 06/28/2016 [facility] Baker F44.5 Conversion 10:55a Clinic MD disorder with seizures or convulsions G43.909 Migraine, unsp, not intractable, without status migrainosus Office Visit 05/10/2016 Scooter PearceBryant G43.009 Migraine w/o aura, 10:45a Neurologic Pablo Yadav not intractable, [facility] w/o status migrainosus G40.209 Local-rel symptc epi w cmplx prt seiz,not ntrct,w/o stat epi Office Visit 05/03/2016 1:40p [facility] Internal Jeremiah Zendejas, M79.632 Pain in left Medicine - [place] ADHESIVE BANDAGE MACHINE OPERATOR forearm Rd S50.12xA Contusion of left forearm, initial encounter Office Visit 03/26/2016 3:00p [facility] Internal Jeremiah Zendejas, H81.319 Aural vertigo, Medicine - ADHESIVE BANDAGE MACHINE OPERATOR unspecified ear [address] J02.9 Acute pharyngitis, unspecified Office Visit 02/22/2016 [facility] Internal Jeremiah Zendejas, F33.9 Major depressive 1:00p Medicine - ADHESIVE BANDAGE MACHINE OPERATOR disorder, recurrent, [address] unspecified Office Visit 01/24/2016 [facility] Internal Jeremiah Zendejas, G40.909 Epilepsy, unsp , not 3:40p Medicine - ADHESIVE BANDAGE MACHINE OPERATOR intractable, without [address] status epilepticus Office Visit 01/01/2016 [facility] Internal Jeremiah Zendejas, A09 Infectious 3:00p Medicine - ADHESIVE BANDAGE MACHINE OPERATOR gastroenteritis and [address] colitis, unspecified R11.2 Nausea with vomiting, unspecified Office Visit 12/20/2015 2:40p [facility] Internal Jeremiah Zendejas, Z01.419 Encntr for yard caller Medicine - [place] ADHESIVE BANDAGE MACHINE OPERATOR exam (general) Rd (routine) w/o abn findings [...] Otalgia, unspecified ear Office Visit 12/18/2015 1:00p [facility] Internal Jeremiah Zendejas, G40.909 Epilepsy , unsp, Medicine - ADHESIVE BANDAGE MACHINE OPERATOR not intractable, [address] without status epilepticus R05 Cough Office Visit 11/14/2015 3:00p [facility] Kadyni Baker, G40.909 Epilepsy, unsp, Services Of Dona BAINS not intractable, without status epilepticus F41.9 Anxiety disorder, unspecified Office Visit 10/30/2015 3:30p [facility] Internal Jeremiah Armenian, J01.90 Acute sinusitis, Medicine - ADHESIVE BANDAGE MACHINE OPERATOR unspecified [address] H66.92 Otitis media, unspecified, left ear Office Visit 10/11/2015 10:00a [facility] Internal Jeremiah Zendejas, J02.9 Acute pharyngitis, Medicine - ADHESIVE BANDAGE MACHINE OPERATOR unspecified [address] 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 Office Visit 09/13/2015 4:00p [facility] Internal Jeremiah Zendejas, K59.1 Functional Medicine - [place] ADHESIVE BANDAGE MACHINE OPERATOR diarrhea Rd G40.909 Epilepsy, unsp, not intractable, without status epilepticus Office Visit 08/14/2015 11:30a [facility] Internal Jeremiah Zendejas, N92.6 Irregular Medicine - ADHESIVE BANDAGE MACHINE OPERATOR menstruation, [address] unspecified R35.0 Frequency of micturition Office Visit 06/22/2015 2:30p [facility] Internal Jeremiah Zendejas, 522.0 Pulpitis Medicine - ADHESIVE BANDAGE MACHINE OPERATOR [address] Office Visit 06/13/2015 3:00p [facility] Internal Jeremiah Zendejas, 345.90 Epilepsy Unspec Medicine - ADHESIVE BANDAGE MACHINE OPERATOR W/O Intractable [address] 300.02 Anxiety Disorder Generalized 780.39 Convulsions Other 300.00 Anxiety State Unspec Office Visit 05/16/2015 10:30a [facility] Internal Jeremiah Zendejas, 462 Pharyngitis Acute Medicine - ADHESIVE BANDAGE MACHINE OPERATOR [address] Office Visit 05/09/2015 11:00a [facility] Internal Jeremiah Zendejas, 380.13 Ear Infection Medicine - ADHESIVE BANDAGE MACHINE OPERATOR External Acute [address] Other 462 Pharyngitis Acute 461.1 Sinusitis Acute Frontal 786.2 Cough 784.0 Headache 380.10 Otitis Externa Infective Unspec Office Visit 03/17/2015 11:00a [facility] Internal Jeremiah Zendejas, 780.4 Dizziness & Medicine - [place] ADHESIVE BANDAGE MACHINE OPERATOR [address] 300.11 Conversion Disorder Office Visit 03/06/2015 2:00p [facility] Internal Jeremiah Zendejas, 381.4 Otitis Media Acute Medicine - ADHESIVE BANDAGE MACHINE OPERATOR Or Chronic [address] Nonsuppurative 461.1 Sinusitis Acute Frontal 784.0 Headache 780.4 Dizziness & Giddiness Office Visit 03/02/2015 TerrellAlfonzo Blanco 345.90 Epilepsy Unspec 1:45p Neurologic Serv Of Pablo Yadav W/O Intractable [address] 300.11 Conversion Disorder Office Visit 02/14/2015 11:30a [facility] Internal Jeremiah Zendejas, 780.4 Dizziness & Medicine - [place] ADHESIVE BANDAGE MACHINE OPERATOR [address] Office Visit 02/02/2015 3:00p [facility] Internal Jeremiah Zendejas, 698.9 Pruritic Disorder Medicine - [place] ADHESIVE BANDAGE MACHINE OPERATOR Unspec Rd 702.8 Dermatoses Other Spec Office Visit 01/16/2015 2:30p [facility] Internal Jeremiah Zendejas, 698.8 Pruritic Medicine - [place] ADHESIVE BANDAGE MACHINE OPERATOR Conditions Spec Rd Other 300.02 Anxiety Disorder Generalized 698.9 Pruritic Disorder Unspec Office Visit 01/13/2015 1:30p [facility] Internal Jeremiah Zendejas, 698.8 Pruritic Medicine - [place] ADHESIVE BANDAGE MACHINE OPERATOR Conditions Spec Rd Other 493.10 Asthma Intrinsic Unspecified 698.9 Pruritic Disorder Unspec Office Visit 12/15/2014 Terrell/Scooter Blanco 345.90 Epilepsy Unspec 2:30p Neurologic Serv Of Pablo Yadav W/O Intractable [address] Office Visit 12/07/2014 [facility] Internal Medicine Jeremiah Zendejas, 345.90 Epilepsy Unspec 2:00p ADHESIVE BANDAGE MACHINE OPERATOR W/O Intractable 293.83 Mood Disorder In Conditions Classified Elsewhere 372.00 Conjunctivitis Acute Unspec 268.9 Vitamin D Deficiency Unspec V77.1 Screening Diabetes Mellitus 296.90 Episodic Mood Disorder NOS Office Visit 10/11/2014 1:30p [facility] Internal Medicine Jeremiah Zendejas, ADHESIVE BANDAGE MACHINE OPERATOR 133.0 Scabies 698.8 Pruritic Conditions Spec Other 690.18 Seborrheic Dermatitis Other Office Visit 09/26/2014 11:30a [facility] Internal Jeremiah Zendejas, 461.9 Sinusitis Acute Medicine ADHESIVE BANDAGE MACHINE OPERATOR Unspec 786.2 Cough 311 Depressive Disorder Not Elsewhere Spec Office Visit 08/30/2014 1:30p [facility] Internal Jeremiah Zendejas, 311 Depressive Medicine ADHESIVE BANDAGE MACHINE OPERATOR Disorder Not Elsewhere Spec 786.2 Cough Office Visit 08/22/2014 11:30a [facility] Internal Jeremiah Zendejas, 466.0 Bronchitis Acute Medicine ADHESIVE BANDAGE MACHINE OPERATOR 311 Depressive Disorder Not Elsewhere Spec 280.9 Iron Deficiency Anemia Unspec Office Visit 08/18/2014 Nevin Blanco 345.90 Epilepsy Unspec 9:30a Neurologic Serv Of Leif, M.D. W/O Intractable [address] Office Visit 08/09/2014 [facility] Internal Medicine Dinorah 780.79 Malaise And 10:00a Pablo Lorenzo Fatigue Other 300.02 Anxiety Disorder Generalized 345.90 Epilepsy Unspec W/O Intractable 278.00 Obesity Unspec V17.49 Family HX Of Other Cardiovascular Diseases 268.9 Vitamin D Deficiency Unspec 493.10 Asthma Intrinsic Unspecified Office Visit 06/16/2013 3:30p Tyler Aleks Blanco 345.90 Epilepsy Unspec Services [facility] Pablo Yadav W/O Intractable 300.02 Anxiety Disorder Generalized Office Visit 02/25/2013 11:50a [facility] Internal Yudi 345.91 Epilepsy Unspec W/ Medicine Pablo Carlin Intractable 493.90 Asthma Unspec W/O Status Asthmaticus 300.00 Anxiety State Unspec Office Visit 02/17/2013 11:15a [facility] Clinton Blanco 345.90 Epilepsy Unspec [facility] Pablo Yadav W/O Intractable Office Visit 02/11/2013 1:00p [facility] Internal Dinorah Lorenzo 345.91 Epilepsy Unspec Medicine Pablo W/ Intractable Office Visit 11/18/2012 9:30a [facility] Fidel Muhammad 786.50 Pain Chest Unspec Of [facility] Pablo Goodwin, [facility], FAS[facility] 785.1 Palpitations Office Visit 11/17/2012 Tylerkala Blanco 345.40 Local-Related 9:30a Neurologic Pablo Yadav Epilepsy W/O [facility] Mention Of Intractable Epilepsy 346.10 Migraine Common W/O Intractable W/O Status Migrainosus Office Visit 10/27/2012 11:00a [facility] Internal Edison 780.4 Dizziness & Medicine Pablo Vizcarra Giddiness Office Visit 09/28/2012 11:20a [facility] Internal Tanvir 493.90 Asthma Unspec W/ O Elizabeth Vizcarra M.D. Status Asthmaticus 466.0 Bronchitis Acute Office Visit 09/07/2012 [facility] Internal Tanvir 346.92 Migraine 2:40p Elizabeth Vizcarra M.D. Unspecified, W/Out Mention Intractable Migraine Office Visit 09/01/2012 Scooter Blanco 345.91 Epilepsy Unspec W/ 11:00a Neurologic Pabol Yadav Intractable [facility] Office Visit 08/31/2012 [facility] Internal Tanvir 427.89 Cardiac 11:40a Elizabeth Vizcarra M.D. Dysrhythmia Other 346.92 Migraine Unspecified, W/Out Mention Intractable Migraine Office Visit 08/20/2012 12:10p [facility] Internal Yudi Carlin, 300.00 Anxiety State Medicine Pablo Unspec 493.90 Asthma Unspec W/O Status Asthmaticus 401.9 Hypertension Unspec V06.1 Nqapryfwef-Zczikag-Yhzctpja Combined (DTaP) Office Visit 07/20/2012 [facility] Internal Yudi V04.81 Need For Prophylactic 11:50a Elizabeth Carlin M.D. Vaccination & Inoculation/Influenza 345.90 Epilepsy Unspec W/O Intractable 300.00 Anxiety State Unspec 493.90 Asthma Unspec W/O Status Asthmaticus 401.9 Hypertension Unspec Plan of Treatment Future Appointment(s):04/27/2019 1:00 pm - Darion Mena NP at [facility]04/29/2019 11:20 am - Donna Peguero MD at [facility] Internal Qrdlxbnz06/01/2019 - Darion Mena NPF44.5 Conversion disorder with seizures or [id number] Migraine without aura, not intractable, without status migraNew Medication:Doxepin HCL 50 mg - Take one cap by mouth at night.
[2019-03-15 10:52] VITALS: BP 148/86
--- NOTE | 2019-03-15 12:09 | UC ---
Throat Pain/Nasal Neal HPI - HPI Summary HPI Summary: 38 year old female presents with URI symptoms x 1 week, no improvement. C/o sinus tenderness, congestion, cough. + chills, no improvement over 7 days. - History of Current Complaint Chief Complaint: UCRespiratory Stated Complaint: RESPOTORY Time Seen by Provider: 03/15/19 11:37 Hx Obtained From: Patient Hx Last Menstrual Period: 02/13/19 ?: No Onset/Duration: Sudden Onset, Lasting Days Severity: Severe Pain Intensity: 8 Pain Scale Used: 0-10 Numeric - Allergies/Home Medications Allergies/Adverse Reactions: Allergies Allergy/AdvReac Type Severity Reaction Status Date / Time acetaminophen [From Tylenol] Allergy dilusional Verified 03/15/19 11:08 amoxicillin [From Augmentin] Allergy Hives Verified 03/15/19 11:08 blueberry Allergy Hives/Diff. Verified 03/15/19 11:08 Breathing/I tching clavulanic acid Allergy Hives Verified 03/15/19 11:08 [From Augmentin] clindamycin Allergy Hives Verified 03/15/19 11:08 coconut Allergy Hives/Diff. Verified 03/15/19 11:08 Breathing/I tching codeine Allergy Altered Verified 03/15/19 11:08 Mental Status diphenhydramine Allergy Swelling Verified 03/15/19 11:08 [From Benadryl] formoterol [From Dulera] Allergy Hives Verified 03/15/19 11:08 guaifenesin [From Mucinex] Allergy Unknown Verified 03/15/19 11:08 Reaction Details iohexol [From Omnipaque] Allergy Hives Verified 03/15/19 11:08 latex Allergy Hives Verified 03/15/19 11:08 lemon oil Allergy Vomiting Verified 03/15/19 11:08 metronidazole Allergy Hives Verified 03/15/19 11:08 morphine Allergy See Comment Verified 03/15/19 11:08 paroxetine [From Paxil] Allergy Swelling Verified 03/15/19 11:08 Penicillins Allergy Shortness Verified 03/15/19 11:08 of Breath sertraline [From Zoloft] Allergy Hives Verified 03/15/19 11:08 watermelon Allergy Hives/Diff. Verified 03/15/19 11:08 Breathing/I tching zonisamide Allergy Hives Verified 03/15/19 11:08 pickle Allergy Hives/Diff. Uncoded 03/15/19 11:08 Breathing/I tching PSEUDOEPHEDRINE Allergy Unknown Uncoded 03/15/19 11:08 Reaction Details PMH/Surg Hx/FS Hx/Imm Hx Previously Healthy: No Other History Of: Negative For: HIV, Hepatitis B, Hepatitis C - Surgical History Surgical History: None Surgery Procedure, Year, and Place: Scalp Cystectomy May 2014, Abdominal Lipoma May 2014 - Family History Known Family History: Positive: Cardiac Disease, Diabetes Negative: Renal Disease, Seizure Disorder - Social History Alcohol Use: None Substance Use Type: None Smoking Status (MU): Former Smoker Type: Cigarettes Have You Smoked in the Last Year: No - Immunization History Most Recent Influenza Vaccination: Fall 2014 Most Recent Tetanus Shot: 2014 Most Recent Pneumonia Vaccination: unknown Review of Systems All Other Systems Reviewed And Are Negative: Yes Constitutional: Positive: Chills, Fatigue ENT: Positive: Sore Throat, Nasal Discharge, Sinus Congestion, Sinus Pain/ Tenderness Respiratory: Positive: Cough Is Patient Immunocompromised?: No Physical Exam Triage Information Reviewed: Yes Appearance: No Pain Distress, Well-Nourished, Ill-Appearing - mild Vital Signs: Initial Vital Signs Temp 98 F 03/15/19 10:47 Pulse 93 03/15/19 10:47 Resp 18 03/15/19 10:47 BP 148/86 03/15/19 10:47 Pulse Ox 97 03/15/19 10:47 Vital Signs Reviewed: Yes Eyes: Positive: Conjunctiva Clear ENT: Positive: Pharyngeal erythema - minimal, TMs normal, Sinus tenderness - frontal b/l, Uvula midline. Negative: TM bulging, TM dull, TM red, Tonsillar swelling, Tonsillar exudate Dental Exam: Normal Neck: Positive: Supple, Nontender, No Lymphadenopathy. Negative: Nuchal Rigidity, Enlarged Nodes @ Respiratory: Positive: Chest non-tender, Lungs clear, Normal breath sounds, No respiratory distress, No accessory muscle use. Negative: Crackles, Rhonchi, Stridor, Wheezing Cardiovascular: Positive: RRR, No Murmur Psychological Exam: Normal Skin Exam: Normal Throat Pain/Nasal Course/Dx - Course Course Of Treatment: Exam consistent with sinusitis - ANtibiotics as directed - Follow up with primary physician if no improvement within 2-3 days - Return with increased pain, neck stiffness, fever > 102 not treated with tylenol/ motrin - Tylenol/ motrin as needed for pain - Increase fluid intake - Differential Dx/Diagnosis Differential Diagnosis/HQI/PQRI: Sinusitis Provider Diagnosis: Sinusitis Discharge - Sign-Out/Discharge Documenting (check all that apply): Patient Departure All imaging exams completed and their final reports reviewed: No Studies - Discharge Plan Condition: Fair Disposition: HOME Prescriptions: DOXYcycline CAP(*) [DOXYcycline 100MG CAP(*)] 100 mg PO BID #14 cap Patient Education Materials: Sinusitis (ED) Referrals: Jose Bell NP [Primary Care Provider] - Additional Instructions: - ANtibiotics as directed - Follow up with primary physician if no improvement within 2-3 days - Return with increased pain, neck stiffness, fever > 102 not treated with tylenol/ motrin - Tylenol/ motrin as needed for pain - Increase fluid intake - Billing Disposition and Condition Condition: FAIR Disposition: Home
== END 2019-03-15 12:15 | disposition home or self-care (01) ==
LOC: UCEAST 10:42
DX: J32.9 Chronic sinusitis, unspecified (principal); Z88.6 Allergy status to analgesic agent; Z88.1 Allergy status to other antibiotic agents; Z91.041 Radiographic dye allergy status; Z91.040 Latex allergy status; Z88.5 Allergy status to narcotic agent; Z88.0 Allergy status to penicillin; Z88.8 Allergy status to other drugs, medicaments and biological substances; Z91.018 Allergy to other foods; Z87.891 Personal history of nicotine dependence
CPT/HCPCS: 99212; G0463

== ENCOUNTER 2019-04-03 10:04 | Emergency (ER) | payer OTHER ==
--- NOTE | 2019-04-03 10:38 | ED ---
Headache - HPI Summary HPI Summary: This patient is a 38 year old F arriving to ED via EMS with a chief complaint of migraine since 4 days ago. The CC is described as aching and different from her normal migraine because she starts shaking and her eyes start flickering. The patient rates the pain 8/10 in severity. Symptoms aggravated by light. Symptoms alleviated by nothing. Patient reports dizziness, weakness in the legs , blacking out a couple days prior with her eyes rolling into her head. The patient does not usually come to the ER for migraine pain. Patient takes doxepin at night. Patient states she ate today. She is not on HTN medicine. PMHx of diabetes, thyroid disease, anemia, asthma, bronchitis, COPD, GERD, migraine, seizures. PSHx of scalp cystectomy and abdominal lipoma. Patient does not smoke tobacco, drink alcohol, or use drugs. FHx of cardiac disease and DM. - History Of Current Complaint Chief Complaint: EDHeadache Stated Complaint: HEADACHE PER EMS Time Seen by Provider: 04/03/19 10:20 Hx Obtained From: Patient Hx Last Menstrual Period: 02/13/19 Onset/Duration: Started days ago - 4, Still Present, Worse Since Currently Pain Is: Current Pain Scale(0-10)= - 8 Timing: Constant Character: Migraine - Aching Aggravating Factor: Bright Lights Allevating Factors: Nothing Associated Signs And Symptoms: Dizziness, Decreased LOC, Other (Noted In Comments) - Weakness in legs - Allergies/Home Medications Allergies/Adverse Reactions: Allergies Allergy/AdvReac Type Severity Reaction Status Date / Time blueberry Allergy Severe Hives/Diff. Verified 04/03/19 11:22 Breathing/I tching diphenhydramine Allergy Severe Swelling Verified 04/03/19 11:22 [From Benadryl] paroxetine [From Paxil] Allergy Severe Swelling Verified 04/03/19 11:22 Penicillins Allergy Severe Shortness Verified 04/03/19 11:22 of Breath watermelon Allergy Severe Hives/Diff. Verified 04/03/19 11:22 Breathing/I tching amoxicillin [From Augmentin] Allergy Intermediate Hives Verified 04/03/19 11:22 clavulanic acid Allergy Intermediate Hives Verified 04/03/19 11:22 [From Augmentin] clindamycin Allergy Intermediate Hives Verified 04/03/19 11:22 formoterol [From Dulera] Allergy Intermediate Hives Verified 04/03/19 11:22 iohexol [From Omnipaque] Allergy Intermediate Hives Verified 04/03/19 11:22 metronidazole Allergy Intermediate Hives Verified 04/03/19 11:22 sertraline [From Zoloft] Allergy Intermediate Hives Verified 04/03/19 11:22 zonisamide Allergy Intermediate Hives Verified 04/03/19 11:22 pseudoephedrine Allergy Unknown Unknown Verified 04/03/19 11:22 Reaction Details acetaminophen [From Tylenol] Allergy dilusional Verified 03/15/19 11:08 coconut Allergy Hives/Diff. Verified 03/15/19 11:08 Breathing/I tching codeine Allergy Altered Verified 03/15/19 11:08 Mental Status guaifenesin [From Mucinex] Allergy Unknown Verified 03/15/19 11:08 Reaction Details latex Allergy Hives Verified 03/15/19 11:08 lemon oil Allergy Vomiting Verified 03/15/19 11:08 morphine Allergy See Comment Verified 03/15/19 11:08 pickle Allergy Intermediate Hives/Diff. Uncoded 04/03/19 11:22 Breathing/I tching PMH/Surg Hx/FS Hx/Imm Hx Endocrine/Hematology History: Reports: Hx Diabetes - "pre diabetes", Hx Thyroid Disease, Hx Anemia Denies: Hx Unexplained Bleeding Cardiovascular History: Denies: Hx Aneurysm, Hx Angina, Hx Angioplasty, Hx Auto Implanted Cardiovert Defib, Hx Cardiac Arrest, Hx Cardiomegaly, Hx Congenital Heart Disease, Hx Congestive Heart Failure, Hx Coronary Artery Disease, Hx Deep Vein Thrombosis, Hx Embolism, Hx Hypercholesterolemia, Hx Hypotension, Hx Hypertension, Hx Myocardial Infarction, Hx Pacemaker/ICD, Hx Peripheral Vascular Disease, Hx Rheumatic Fever, Hx Syncope, Hx Valvular Heart Disease, Other Cardiovascular Problems/Disorders Respiratory History: Reports: Hx Asthma, Hx Chronic Bronchitis, Hx Chronic Obstructive Pulmonary Disease (COPD) Denies: Hx Cystic Fibrosis, Hx Lung Cancer, Hx Pleural Effusion, Hx Pneumonia , Hx Pulmonary Edema, Hx Pulmonary Embolism, Hx Seasonal Allergies, Hx Sleep Apnea, Other Respiratory Problems/Disorders GI History: Reports: Hx Gastroesophageal Reflux Disease - ON DAILY PROLOSEC Denies: Hx Gall Bladder Disease, Hx Gastrointestinal Bleed, Hx Ulcer, Hx Urosepsis History: Denies: Hx Kidney Stones, Hx Renal Disease Sensory History: Reports: Hx Contacts or Glasses Denies: Hx Cataracts, Hx Eye Injury, Hx Eye Prosthesis, Hx Glaucoma, Hx Legally Blind, Hx Macular Degeneration, Hx Vision Problem, Hx Deafness, Hx Hearing Aid, Hx Hearing Problem, Other Sensory Impairments Opthamlomology History: Reports: Hx Contacts or Glasses Denies: Hx Cataracts, Hx Eye Injury, Hx Eye Prosthesis, Hx Glaucoma, Hx Legally Blind, Hx Macular Degeneration, Hx Vision Problem, Other Sensory Impairments Neurological History: Reports: Hx Developmental Delay - 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 Mental health, Hx Bipolar Disorder Denies: Hx Post Traumatic Stress Disorder, Hx Schizophrenia, Hx Suicide Attempt, Hx Substance Abuse - Cancer History Cancer Type, Location and Year: seizure disorder - Surgical History Surgery Procedure, Year, and Place: Scalp Cystectomy May 2014, Abdominal Lipoma May 2014 Hx Anesthesia Reactions: No Infectious Disease History: No Infectious Disease History: Denies: Hx Clostridium Difficile, Hx Hepatitis, Hx Human Immunodeficiency Virus (HIV), Hx of Known/Suspected MRSA, Hx Shingles, Hx Tuberculosis, Hx Known/ Suspected VRE, Hx Known/Suspected VRSA, History Other Infectious Disease, Traveled Outside the [place] in Last 30 Days - Family History Known Family History: Positive: Cardiac Disease, Diabetes Negative: Renal Disease, Seizure Disorder - Social History Alcohol Use: None Hx Substance Use: No Substance Use Type: Reports: None Hx Tobacco Use: Yes Smoking Status (MU): Never Smoked Tobacco Type: Cigarettes Have You Smoked in the Last Year: No Review of Systems Negative: Fever Neurological: Other - Dizziness Positive: Headache, Weakness - Legs, Syncope - Two days ago All Other Systems Reviewed And Are Negative: Yes Physical Exam - Summary Physical Exam Summary: GENERAL: Patient is a well-developed and nourished F who is lying comfortable in the stretcher. Patient is not in any acute respiratory distress. HEAD AND FACE: Normocephalic EYES: PERRLA, EOMI x 2. EARS: Hearing grossly intact. MOUTH: Oropharynx within normal limits. NECK: Supple, trachea is midline, no adenopathy, no JVD, no carotid bruit. CHEST: Symmetric, no tenderness at palpation LUNGS: Clear to auscultation bilaterally. No wheezing or crackles. CVS: Regular rate and rhythm, S1 and S2 present, no murmurs or gallops appreciated. ABDOMEN: Soft, non-tender. Bowel sounds are normal. No abnormal abdominal pulsations. EXTREMITIES: Full ROM in all major joints, no edema, no cyanosis or clubbing. NEURO: Alert and oriented x 3. No acute neurological deficits. Speech is normal and follows commands. Cranial nerves II-XII grossly intact, no dysmetria finger to nose, nml heel to molina SKIN: Dry and warm GCS: 15 Triage Information Reviewed: Yes Vital Signs On Initial Exam: Initial Vitals Temp Pulse Resp BP Pulse Ox 98.7 F 86 18 165/90 89 04/03/19 10:19 04/03/19 10:19 04/03/19 10:19 04/03/19 10:19 04/03/19 10:19 Vital Signs Reviewed: Yes Diagnostics - Vital Signs Vital Signs Temp Pulse Resp BP Pulse Ox 04/03/19 10:19 98.7 F 86 18 165/90 89 - Laboratory Result Diagrams: 04/03/19 11:18 04/03/19 11:18 Lab Statement: Any lab studies that have been ordered have been reviewed, and results considered in the medical decision making process. - CT Brain CT Interpretation Completed By: Radiologist Summary of CT Findings: Negative, unenhanced head CT. Dr. Winter has reviewed this radiology report. Re-Evaluation - Re-Evaluation First Eval Re-Evaluation Time: 12:43 Comment: Discussed results with patient. Patient will be discharged home with dx of headache and instructions to picker / packer her prescription of Toradol. Patient understands and agrees with this plan. Headache Course/Dx - Course Course Of Treatment: This patient is a 38 year old F arriving to ED via EMS with a chief complaint of migraine since 4 days ago. In the ED course brain CT revealed negative, unenhanced head CT. Patient was given Benadryl, Toradol, Trandate, Reglan, Zofran, and fluids. Bloodwork and UA obtained. Patient will be discharged home with dx of headache and instructions to follow up with neurology. She already has a prescription for Toradol at her pharmacy. I discussed results with patient, and she reports feeling better. She is hemodynamically stable and safe for discharge. Strict return precautions given. - Diagnoses Provider Diagnoses: Headache Discharge - Sign-Out/Discharge Documenting (check all that apply): Patient Departure - Discharge Patient Received Moderate/Deep Sedation with Procedure: No - Discharge Plan Condition: Stable Disposition: HOME Patient Education Materials: Migraine Headache (ED) Referrals: Clinton Yadav MD [Medical Doctor] - 3 Days Additional Instructions: Follow up with Dr. Yadav (neurologist) in 1-3 days. RETURN TO THE EMERGENCY DEPARTMENT FOR CHANGING OR WORSENING SYMPTOMS. - Billing Disposition and Condition Condition: STABLE Disposition: Home - Attestation Statements Document Initiated by Sampson: Yes Documenting Scribe: Kyree Viveros Provider For Whom Sampson is Documenting (Include Credential): Kristen Winter MD Scribe Attestation: IKyree, scribed for Kristen Winter MD on 04/03/19 at 2041. Scribe Documentation Reviewed: Yes Provider Attestation: The documentation as recorded by the scribeKyree accurately reflects the service I personally performed and the decisions made by me, Kristen Winter MD Status of Scribe Document: Viewed
[2019-04-03] MEDS ORDERED: NS 0.9% 1000 ML** 1,000 ML IV ONE (10:46)
[2019-04-03] MEDS ORDERED: diPHENhydraMINE IV* 50 MG/ML 1 ml VIAL (BENADRYL) IV ONE (10:46)
[2019-04-03] MEDS ORDERED: Metoclopramide IV* 5 MG/ML 2 ML VIAL IV ONE (10:46)
[2019-04-03] MEDS ORDERED: Ondansetron INJ* 2 MG/ML VIAL IV ONE (10:49)
[2019-04-03] MEDS ORDERED: Labetalol IV* 5 MG/ML 20 ML VIAL IV PUSH ONE (10:49)
[2019-04-03 11:35] LABS: ABS Basophils 0.1 10^3/ul (0-0.2); ABS Eosinophils 0.3 10^3/ul (0-0.6); ABS Lymphocytes 1.9 10^3/ul (1.0-4.8); ABS Monocytes 0.4 10^3/ul (0-0.8); ABS Neutrophils 5.1 10^3/ul (1.5-7.7); Eosinophil % 3.5 %; Hematocrit 40 % (35-47); Hemoglobin 13.3 g/dL (12.0-16.0); Lymphocyte % 24.5 %; Mean Corpuscular HGB Conc 33 g/dL (31-36); Mean Corpuscular Hemoglobin 33 pg (27-31); Mean Corpuscular Volume 97 fL (80-97); Mean Platelet Volume 7.1 fL (7.4-10.4); Nucleated Red Blood Cells % 0.1; Platelet Count 336 10^3/uL (150-450); Red Blood Count 4.08 10^6 /uL (3.70-4.87); Red Cell Distribution Width 13 % (10.5-15); White Blood Count 7.8 10^3/uL (3.5-10.8)
[2019-04-03] MEDS ORDERED: Ketorolac INJ* 30 MG/ML 1 ML VIAL IV PUSH ONE (11:38)
[2019-04-03 11:44] LABS: Urine Appearance Cloudy; Urine Bacteria Absent (Absent); Urine Bilirubin Negative (Negative); Urine Blood 1+ (Negative); Urine Color Yellow; Urine Glucose Negative (Negative); Urine Ketones Negative (Negative); Urine Nitrite Negative (Negative); Urine Protein Negative (Negative); Urine Red Blood Cell Absent (Absent); Urine Specific Gravity 1.014 (1.010-1.030); Urine Squamous Epithelial Cell Present (Absent); Urine Urobilinogen Negative (Negative); Urine White Blood Cell Trace(0-5/hpf) (Absent)
[2019-04-03 11:51] LABS: ALT 17 U/L (7-52); AST 18 U/L (13-39); Albumin 4.3 g/dL (3.2-5.2); Albumin/Globulin Ratio 1.5 (1-3); Alkaline Phosphatase 77 U/L (34-104); Anion Gap 7 mmol/L (2-11); BUN/Creatinine Ratio 15.8 (8-20); Blood Urea Nitrogen 12 mg/dL (6-24); CO2 Carbon Dioxide 25 mmol/L (22-32); Calcium 9.5 mg/dL (8.6-10.3); Chloride 105 mmol/L (101-111); EGFR African American 103.6 (>60); EGFR Non-African American 85.6 (>60); Globulin 2.9 g/dL (2-4); Glucose 136 mg/dL (70-100); Potassium 4.3 mmol/L (3.5-5.0); Sodium 137 mmol/L (135-145); Total Protein 7.2 g/dL (6.4-8.9)
[2019-04-03 11:59] LABS: HCG Pregnancy < 0.60 mIU/mL
[2019-04-03 12:39] VITALS: BP 137/76
== END 2019-04-03 12:46 | disposition home or self-care (01) ==
LOC: ED 10:04
DX: R51 Headache (principal); R42 Dizziness and giddiness; Z88.0 Allergy status to penicillin; R73.03 Prediabetes; K21.9 Gastro-esophageal reflux disease without esophagitis
CPT/HCPCS: 36415; 70450; 80053; 81003; 81015; 84702; 85025; 87086; 96374; 96375; 99283; J1885; J2405

== ENCOUNTER 2019-05-01 11:03 | Emergency (ER) | payer OTHER ==
--- NOTE | 2019-05-01 11:14 | ED ---
Neurological HPI - HPI Summary HPI Summary: 38 year old F brought in by [facility] ambulance to [facility] with a chief complaint of unwitnessed seizure this morning. Symptoms aggravated by nothing. Symptoms alleviated by nothing. Patient states she was moving grocery bags, felt lightheaded, lost consciousness, fell to the floor, and hit the left side of her head. She reports bump on the left side of her head. Patient has hx seizures for which she takes lamotrigine. Patient's neurologist is Dr. Yadav. Patient states she saw Darion neurology PA, last week. Patient is still waiting for test results. - History of Current Complaint Stated Complaint: SYNCOPE EPISODE/SEISURES PER EMS Time Seen by Provider: 05/01/19 11:07 Hx Obtained From: Patient Onset/Duration: Sudden Onset, Started hours ago, Resolved Timing: Sudden Onset Syncope Context: Unwitnessed Aggravating: Nothing Alleviating: Nothing - Allergy/Home Medications Allergies/Adverse Reactions: Allergies Allergy/AdvReac Type Severity Reaction Status Date / Time blueberry Allergy Severe Hives/Diff. Verified 05/01/19 11:30 Breathing/I tching diphenhydramine Allergy Severe Swelling Verified 05/01/19 11:30 [From Benadryl] paroxetine [From Paxil] Allergy Severe Swelling Verified 05/01/19 11:30 Penicillins Allergy Severe Shortness Verified 05/01/19 11:30 of Breath watermelon Allergy Severe Hives/Diff. Verified 05/01/19 11:30 Breathing/I tching amoxicillin [From Augmentin] Allergy Intermediate Hives Verified 05/01/19 11:30 clavulanic acid Allergy Intermediate Hives Verified 05/01/19 11:30 [From Augmentin] clindamycin Allergy Intermediate Hives Verified 05/01/19 11:30 formoterol [From Dulera] Allergy Intermediate Hives Verified 05/01/19 11:30 iohexol [From Omnipaque] Allergy Intermediate Hives Verified 05/01/19 11:30 metronidazole Allergy Intermediate Hives Verified 05/01/19 11:30 sertraline [From Zoloft] Allergy Intermediate Hives Verified 05/01/19 11:30 zonisamide Allergy Intermediate Hives Verified 05/01/19 11:30 pseudoephedrine Allergy Unknown Unknown Verified 05/01/19 11:30 Reaction Details acetaminophen [From Tylenol] Allergy dilusional Verified 05/01/19 11:30 coconut Allergy Hives/Diff. Verified 05/01/19 11:30 Breathing/I tching codeine Allergy Altered Verified 05/01/19 11:30 Mental Status guaifenesin [From Mucinex] Allergy Unknown Verified 05/01/19 11:30 Reaction Details latex Allergy Hives Verified 05/01/19 11:30 lemon oil Allergy Vomiting Verified 05/01/19 11:30 morphine Allergy See Comment Verified 05/01/19 11:30 pickle Allergy Intermediate Hives/Diff. Uncoded 04/03/19 11:22 Breathing/I tching Home Medications: Home Medications Cetirizine* [ZyrTEC 10 MG TAB*] 10 mg PO DAILY 05/01/19 [History Confirmed 05/01] Ferrous Gluconate TAB* [Fergon TAB*] 325 mg PO DAILY 05/01/19 [History Confirmed 05/01/19] Ketorolac Tromethamine 10 mg PO Q4HR PRN 05/01/19 [History Confirmed 05/01/19] PMH/Surg Hx/FS Hx/Imm Hx Previously Healthy: No Endocrine/Hematology History: Reports: Hx Diabetes - "pre diabetes", Hx Thyroid Disease, Hx Anemia Denies: Hx Unexplained Bleeding Cardiovascular History: Denies: Hx Aneurysm, Hx Angina, Hx Angioplasty, Hx Auto Implanted Cardiovert Defib, Hx Cardiac Arrest, Hx Cardiomegaly, Hx Congenital Heart Disease, Hx Congestive Heart Failure, Hx Coronary Artery Disease, Hx Deep Vein Thrombosis, Hx Embolism, Hx Hypercholesterolemia, Hx Hypotension, Hx Hypertension, Hx Myocardial Infarction, Hx Pacemaker/ICD, Hx Peripheral Vascular Disease, Hx Rheumatic Fever, Hx Syncope, Hx Valvular Heart Disease, Other Cardiovascular Problems/Disorders Respiratory History: Reports: Hx Asthma, Hx Chronic Bronchitis, Hx Chronic Obstructive Pulmonary Disease (COPD) Denies: Hx Cystic Fibrosis, Hx Lung Cancer, Hx Pleural Effusion, Hx Pneumonia , Hx Pulmonary Edema, Hx Pulmonary Embolism, Hx Seasonal Allergies, Hx Sleep Apnea, Other Respiratory Problems/Disorders GI History: Reports: Hx Gastroesophageal Reflux Disease - ON DAILY PROLOSEC Denies: Hx Gall Bladder Disease, Hx Gastrointestinal Bleed, Hx Ulcer, Hx Urosepsis History: Denies: Hx Kidney Stones, Hx Renal Disease Sensory History: Reports: Hx Contacts or Glasses Denies: Hx Cataracts, Hx Eye Injury, Hx Eye Prosthesis, Hx Glaucoma, Hx Legally Blind, Hx Macular Degeneration, Hx Vision Problem, Hx Deafness, Hx Hearing Aid, Hx Hearing Problem, Other Sensory Impairments Opthamlomology History: Reports: Hx Contacts or Glasses Denies: Hx Cataracts, Hx Eye Injury, Hx Eye Prosthesis, Hx Glaucoma, Hx Legally Blind, Hx Macular Degeneration, Hx Vision Problem, Other Sensory Impairments Neurological History: Reports: Hx Developmental Delay - 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 Mental health, Hx Bipolar Disorder Denies: Hx Post Traumatic Stress Disorder, Hx Schizophrenia, Hx Suicide Attempt, Hx Substance Abuse - Cancer History Cancer Type, Location and Year: seizure disorder - Surgical History Surgery Procedure, Year, and Place: Scalp Cystectomy May 2014, Abdominal Lipoma May 2014 Hx Anesthesia Reactions: No Infectious Disease History: Denies: Hx Clostridium Difficile, Hx Hepatitis, Hx Human Immunodeficiency Virus (HIV), Hx of Known/Suspected MRSA, Hx Shingles, Hx Tuberculosis, Hx Known/ Suspected VRE, Hx Known/Suspected VRSA, History Other Infectious Disease - Family History Known Family History: Positive: Cardiac Disease, Diabetes Negative: Renal Disease, Seizure Disorder - Social History Alcohol Use: None Hx Substance Use: No Substance Use Type: Reports: None Hx Tobacco Use: Yes Smoking Status (MU): Smoker, Current Status Unknown Type: Cigarettes Have You Smoked in the Last Year: No Review of Systems Positive: Other - bump on the left side of her head Neurological: Other - seizure resolved, LOC Positive: Syncope All Other Systems Reviewed And Are Negative: Yes Physical Exam - Summary Physical Exam Summary: VITAL SIGNS: Reviewed. GENERAL: Patient is a well-developed and nourished FEMALE who is lying comfortable in the stretcher. Patient is not in any acute respiratory distress. HEAD AND FACE: No signs of trauma. No ecchymosis, hematomas or skull depressions. No sinus tenderness. EYES: PERRLA, EOMI x 2, No injected conjunctiva, no nystagmus. EARS: Hearing grossly intact. Ear canals and tympanic membranes are within normal limits. MOUTH: Oropharynx within normal limits. No injury to the tongue. NECK: Supple, trachea is midline, no adenopathy, no JVD, no carotid bruit, no c- spine tenderness, neck with full ROM. CHEST: Symmetric, no tenderness at palpation LUNGS: Clear to auscultation bilaterally. No wheezing or crackles. CVS: Regular rate and rhythm, S1 and S2 present, no murmurs or gallops appreciated. ABDOMEN: Soft, non-tender. No signs of distention. No rebound no guarding, and no masses palpated. Bowel sounds are normal. EXTREMITIES: FROM in all major joints, no edema, no cyanosis or clubbing. NEURO: Alert and oriented x 3. No acute neurological deficits. Speech is normal and follows commands. SKIN: Dry and warm. GCS: 15 Triage Information Reviewed: Yes Vital Signs Reviewed: Yes Diagnostics - Laboratory Result Diagrams: 05/01/19 11:44 05/01/19 11:44 Lab Statement: Any lab studies that have been ordered have been reviewed, and results considered in the medical decision making process. - Radiology CXR Radiology Interpretation Completed By: Radiologist Summary of Radiographic Findings: 1. No evidence for acute intrathoracic disease. ED physician has reviewed this report. - CT Brain CT Interpretation Completed By: Radiologist Summary of CT Findings: 1. Negative unenhanced head CT. ED physician has reviewed this report. - EKG 1117 Cardiac Rate: NL - 90 BPM EKG Rhythm: Sinus Rhythm EKG Comparison: No Significant Change - 01/17/19 Summary of EKG Findings: This is a poor quality EKG that shows sinus rhythm at [address] elevations Re-Evaluation - Re-Evaluation First Eval Re-Evaluation Time: 13:25 Comment: Discussed discharge plan. Patient is agreeable to discharge Course/Dx - Course Assessment/Plan: 38 year old F brought in by [facility] ambulance to [facility] with a chief complaint of unwitnessed seizure this morning. Symptoms aggravated by nothing. Symptoms alleviated by nothing. Patient states she was moving grocery bags, felt lightheaded, lost consciousness, fell to the floor, and hit the left side of her head. She reports bump on the left side of her head. Patient has hx seizures for which she takes lamotrigine. Patient's neurologist is Dr. Yadav. Patient states she saw paige Orlando, last week. Patient is still waiting for test results. Past medical history significant for. 1- Past medical history significant for conversion disorders with attacks or seizures. 2- Headaches. 3- Idiopathic generalized epilepsy. In the ED course, the patient was placed in a data engineer, IV access was obtained, IV fluids were started. Blood work was ordered except for Lamictal level since the patient had a Lamictal level ordered by Dr. Yadav a few days ago. Head CT was ordered since the patient reported that she hit her head. Blood work without any significant abnormality except for glucose of 131. Chest x-ray impression: no evidence for acute intrathoracic disease. I discussed my physical exam and test results with Dr. Bain from neurology and he recommends to increase the evening dose of Lamictal to 225 milligrams at nighttime. He also recommends for the patient to be discharged home and follow up with Dr. Yadav or Carl sometime next week. At this point, I discussed all the findings and test results with the patient. She was instructed to return to the emergency room immediately if any of the symptoms return or worsens. She understands and agrees. Neurological exam before discharge: Patient is alert and oriented x 3. No acute neurological deficits. Patient vital signs are stable. Patient is to follow up with Dr. Yadav or Darion in 2 days. She was given a prescription for Lamictal. She understands and agrees. Plan of care was discussed with the patient and patient understands and agrees with the plan of care. All questions were answered at patient satisfaction. There were no further complaints or concerns. - Diagnoses Provider Diagnoses: Seizure - Physician Notifications Discussed Care Of Patient With: Momo Bain Time Discussed With Above Provider: 13:09 Instructed by Provider To: Other - Dr. Bain, neurology, recommended to increase the evening dose of lamotrigine to 225mg and patient can be discharged and follow up with Darion. Discharge - Sign-Out/Discharge Documenting (check all that apply): Patient Departure - Discharge Patient Received Moderate/Deep Sedation with Procedure: No - Discharge Plan Condition: Stable Disposition: HOME Prescriptions: lamoTRIgine TAB(*) [LaMICtal TAB(*)] 25 mg PO BEDTIME #15 tab Patient Education Materials: Recurrent Seizures in Adults (ED) Referrals: Clinton Yadav MD [Medical Doctor] - 05/03/19 Additional Instructions: Follow up with Dr. Yadav on Friday05/03/19. Increase your evening dose of Lamictal to 225 mg until you follow up with Dr. Yadav. Return to the Emergency Department with new or worsening symptoms. - Billing Disposition and Condition Condition: STABLE Disposition: Home - Attestation Statements Document Initiated by Scribe: Yes Documenting Scribe: Marielle Quinones Provider For Whom Sampson is Documenting (Include Credential): Marito Shaikh MD Scribe Attestation: IMarielle, scribed for Marito Shaikh MD on 05/01/19 at 1427. Scribe Documentation Reviewed: Yes Provider Attestation: The documentation as recorded by the scribeMarielle accurately reflects the service I personally performed and the decisions made by me, Marito Shaikh MD Status of Scribe Document: Viewed
[2019-05-01 11:52] LABS: ABS Basophils 0.1 10^3/ul (0-0.2); ABS Eosinophils 0.3 10^3/ul (0-0.6); ABS Lymphocytes 2.2 10^3/ul (1.0-4.8); ABS Monocytes 0.5 10^3/ul (0-0.8); ABS Neutrophils 5.2 10^3/ul (1.5-7.7); Eosinophil % 3.1 %; Hematocrit 38 % (35-47); Hemoglobin 13.2 g/dL (12.0-16.0); Lymphocyte % 27.2 %; Mean Corpuscular HGB Conc 35 g/dL (31-36); Mean Corpuscular Hemoglobin 34 pg (27-31); Mean Corpuscular Volume 97 fL (80-97); Mean Platelet Volume 7.2 fL (7.4-10.4); Nucleated Red Blood Cells % 0.1; Platelet Count 348 10^3/uL (150-450); Red Blood Count 3.93 10^6 /uL (3.70-4.87); Red Cell Distribution Width 14 % (10-15); White Blood Count 8.3 10^3/uL (3.5-10.8)
[2019-05-01 12:09] LABS: ALT 19 U/L (7-52); AST 19 U/L (13-39); Albumin 4.3 g/dL (3.2-5.2); Albumin/Globulin Ratio 1.4 (1-3); Alkaline Phosphatase 80 U/L (34-104); Anion Gap 8 mmol/L (2-11); BUN/Creatinine Ratio 14.8 (8-20); Blood Urea Nitrogen 12 mg/dL (6-24); CO2 Carbon Dioxide 25 mmol/L (22-32); Calcium 9.6 mg/dL (8.6-10.3); Chloride 107 mmol/L (101-111); EGFR African American 96.3 (>60); EGFR Non-African American 79.6 (>60); Glucose 131 mg/dL (70-100); Potassium 4.4 mmol/L (3.5-5.0); Sodium 140 mmol/L (135-145); Total Protein 7.3 g/dL (6.4-8.9)
--- OUTSIDE RECORDS SUMMARY | 2019-05-01 12:28 | XMS REPORT | Continuity of Care Document ---
:1980 External Reference #:[id number] Author Name Ynes Zambrano Care Team Providers Name Role Phone Donna Peguero M.D. Primary Care Physician Unavailable Payers Date Identification Numbers Payment Provider Subscriber Effective: Policy Number: [id number] [place] Dean Peng 2012 Medicaid PayID: [id number] [address] [address] [place] [address] Advance Directives Type Date Description Status Comment [...] Morbid obesity Tanvir Vizcarra M.D. Onset: 10/16/2017 Migraine without aura, not refractory Hernando Jurado M.D. Onset: 2018 Dissociative convulsions Hernando Jurado M.D. Onset: 04/01/2019 Inactive Problems Difficulty breathing Diana Escalona MD [...] Use Denies Drug Use Smoking Status Reviewed: 04/27/19 Patient is a former smoker Allergies, Adverse [...] Medications SIG Qnty Indications Ordering Date Provider Aimovig inject sq once a 1ml Clinton Blanco 04/27/2019 70mg/ml elvis Yadav M.D. Solution Auto-Inject Aimovig inject sq once a 1ml G43.009 Clinton Blanco 04/27/2019 70mg/ml elvis Yadav M.D. Solution Auto-Inject Blood Pressure use daily to 1units R03.0 Jose Morochok, 04/07/2019 Monitor Auto monitor bp daily BARREL SCRAPER Inflate Misc Walker Swivel use with 1units R29.6 Jose Morochok, 04/07/2019 Wheels/5 Adjustment ambulation BARREL SCRAPER Holes/3" 3" Misc Prednisone 3 tabs for 1 day 6tabs Clinton Blanco 04/07/2019 20mg then 2 tabs for 1 Pablo Yadav Tablets day then 1 tab for 1 day Doxepin HCL take one cap by 30caps G43.Eleni Blanco 03/10/2019 50mg mouth at night. Pablo Yadav Capsules Lamotrigine take 2 tab by 120tabs Clinton Blanco 01/15/2019 200mg mouth in the Pablo Yadav Tablets morning and take 2 tabs at bedtime. Trueplus Lancets 30G use to test 100units Jose Bell, 12/31/2018 Ultra Thin BARREL SCRAPER 30G Misc Fluticasone use 2 sprays in 16units J01.90 Jose Bell, 10/21/2018 Propionate each nostril one BARREL SCR[employer]ER 50mcg/Act time a day Suspension Robitussin 12 Hour 5 milliliters by 89ml R05 Donna Peguero MD 10/21/2018 Cough Relief mouth twice a day 30mg/5ML as needed Suer Nasal [place] 12 Hour 2 sprays each 30ml J01.90 Jose Bell, 10/21/2018 nostril 2x daily BARREL SCR[employer]ER 0.05% Solution as needed for congestion True Metrix Go Blood use daily as 1units Jose Bell, 08/17/2018 Glucose Meter directed last BARREL S[employer]ER visit: 08/19/18 w/Device Kit True Focus Self test blood twice 100units Tawny Ferrari MD 08/17/2018 Monitoring Blood daily Glucose Test Strips Strips Ventolin HFA 2 puffs by mouth 8gm J45.30 Jose Bell, 07/15/2018 four times a day BAR[employer] SCR[employer]ER 108(90Base) mcg/Act as needed Aerosol Guards use mouth guard at 1units K13.79 Jose Bell, 05/08/2018 Misc night [employer] Citalopram take one tablet by 30tabs Donna Peguero MD 03/12/2018 Hydrobromide mouth every day 40mg Tablets Ibuprofen take one tablet 90tabs Jose Bell, 06/24/2016 800mg three times daily [employer] S[employer]ER Tablets as needed. Omeprazole take one capsule 30caps K21.9 Donna Peguero MD 09/15/2015 20mg by mouth every day Capsules DR PETERSON Cetirizine HCL 1 by mouth every 30tabs Donna Peguero MD 03/31/2015 day 10mg Tablets Ferrous Gluconate take one tablet by 180tabs D50.9 Jose Bell, 2013 mouth twice daily BARREL SCR[employer]ER 324(38Fe) mg Tablets Albuterol Sulfate inhale the 100units Baldev Beck 11/02/2012 contents of one Pablo Bonner,FACP (2.5mg/3ML) 0.083% vial via nebulizer Nebulizer every 4 to 6 hours as needed Levothyroxine Sodium 1 by mouth every 90tabs E03.9 Donna Peguero MD day 75mcg Tablets History Medications Ketorolac take one tab by 20tabs Jose Bell, 04/01/2019 - Tromethamine mouth every 4-6 [employer]REL S[employer] 04/06/2019 10mg hours, as needed Tablets for severe migraine for five days. max 4 doses a day. take with food. Hydroxyzine HCL Take one tab by 60tabs Clinton Blanco 04/01/2019 - 50mg mouth twice a Pablo Yadav 04/07/2019 Tablets day, as needed Lamotrigine Starting 03/26, 14tabs Clinton Blanco 03/11/2019 - 100mg take one tab by aPblo Yadav 04/07/2019 Tablets mouth with 200 mg dose in the morning (total of 300 mg in the morning) for two weeks. Lamotrigine take one tab by 7tabs Clinton Blacno 03/10/2019 - 100mg mouth with 200 Pablo Yadav 03/11/2019 Tablets Dispers mg dose in the morning (total of 300 mg in the morning) for one week. Doxepin HCL Take one capsule 30caps G43.909 Clinton Blanco 03/10/2019 - 50mg at night. Pablo Yadav 03/10/2019 Capsules Zyrtec Allergy take one tablet 30caps J30.9 Jose Bell, 02/17/2019 - 10mg by mouth in the [facility] 04/26/2019 Capsules evening Vitamin D3 Adult take 1 chewtab 90units R42 Tawny Ferrari MD 01/19/2019 - Gummies daily 02/17/2019 1000Unit Chewtabs Mucinex DM 1 by mouth twice 60tabs Jose Bell, 12/31/2018 - 30-600mg a day [facility] 01/14/2019 Tablets ER 12HR Doxepin HCL 4 capsules every 120caps G43.909 Clinton S. 12/10/2018 - 10mg night at bedtime Pablo Yadav 03/10/2019 Capsules Freestyle Lancets 2 times daily 100units Jose Bell, 12/09/2018 - and as needed [facility] 12/30/2018 Misc Neomycin/Polymyxin/H 2 drops in 10ml H60.93 Donna Peguero MD 11/17/2018 - ydrocortisone (Otic) affected ear 02/17/2019 twice a day for 3.5-03459-1 Solution 5 days as needed Doxycycline take 1 tab po 20caps Jose Bell, 10/22/2018 - Monohydrate bid for 10 days [employer] 11/17/2018 100mg Capsules Cefuroxime Axetil 1 tab by mouth 14tabs H66.92 Jose Bell, 10/21/2018 - twice a day for [facility] 10/22/2018 250mg Tablets 7 days J01.90 Doxycycline 1 tab by mouth 14tabs J01.90 Jose Bell, 08/19/2018 - Monohydrate twice a day for [facility] 11/17/2018 100mg 7 days Tablets Benzonatate take 1 tab by 30caps R05 Jose Bell, 08/19/2018 - 100mg mouth three [employer] 01/19/2019 Capsules times a day as needed for cough Breo Ellipta inhale 1 puff by 30units Comfort Benito, 08/11/2018 - mouth once daily M.D. 11/17/2018 100-25mcg/Inh Aerosol Advair Diskus inhale 1 dose by 60units Tanvir Vizcarra, 07/21/2018 - mouth twice a M.D. 08/11/2018 100-50mcg/Dose day Aerosol Flovent HFA 2 act twice a 10.600gm J45.30 Jacksonmagaly Ray, 07/15/2018 - 44mcg/Act day daily for 2 [facility] 07/21/2018 Aerosol week rinse after use Cephalexin take 1 tab three 30caps L03.116 Jose Bell, 07/15/2018 - 500mg times a day for [facility] 07/15/2018 Capsules 10 days Sulfamethoxazole/Tri 1 tab po bid x 7 14tabs L03.116 Jose Bell, 2017 - methoprim DS days [facility] 08/19/2018 800-160mg Tablets Vitamin C take one tablet 60tabs D50.9 Donna Peguero MD 05/08/2018 - 500mg by mouth twice a 02/17/2019 Tablets day Meclizine HCL take 1/2-1 90tabs H81.399 Jose Bell, 03/10/2018 - 25mg tablet by mouth [facility] 01/19/2019 Tablets three times a day as needed Calcium take one tablet 180tabs J00 Donna Peguero MD 02/18/2018 - Carbonate-Vitamin D by mouth twice a 01/19/2019 day with food [id number] Tablets Prednisone 4 tabs every day 20tabs Baldev Beck 01/21/2018 - 10mg for 2 days, then Pablo Bonner,[facility] 01/29/2018 Tablets reduce by 1 tab every 2 days until finished Arnuity Ellipta 1 puff inhaled 30units Baldev Beck 01/21/2018 - every day Pablo Bonner,[facility] 11/17/2018 100mcg/Act Aerosol Calcium take one tablet 180tabs Tanvir Vizcarra, 10/20/2017 - Carbonate-Vitamin D by mouth twice a M.D. 01/01/2018 day with food [id number] Tablets Doxepin HCL 4 capsules every 120caps G43.909 Hernando Jurado, 09/12/2017 - 10mg night at bedtime M.D. [...] Viscous swish and spit 200ml K08.89 Marito Turpin, 2016 - 2% 15cc up to three M.D. 04/10/2017 Solution times a day as needed Ketorolac take 1 by mouth 3tabs Bekah Jarrell, 03/31/2017 - Tromethamine every 8 hours as M.D. 04/10/2017 10mg needed for Tablets migraine. take with food. Ondansetron HCL one by mouth 10tabs Baldev Beck 03/31/2017 - 4mg every 8 hours as Pablo Bonner,FACP 07/15/2018 Tablets needed for nausea Clindamycin HCL 1 tabs by mouth 40caps K05.00 Tanvir Vizcarra, 2016 - 300mg every 6h M.D. 04/10/2017 Capsules Vicodin 1 tab every 12 20tabs K05.00 Tanvir Vizcarra, 03/25/2017 - 5-300mg hours M.D. 05/21/2017 Tablets Citalopram Take One Tablet 30tabs Goltrymahogany Vizcarra, 03/17/2017 - Hydrobromide By Mouth Every M.D. 03/12/2018 10mg Day Along With Tablets 20 MG Tablet To Equal Total Daily Dose Of 30 MG Calcium 600+D 1 tab by mouth 180tabs J00 Tanvir Vizcarra, 10/31/2016 - twice a day take M.D. 02/18/2018 [id number] w/ meal Tablets Topiramate 1 po qam [...] 03/13/2016 - four times a day [facility] 11/17/2018 108(90Base) mcg/Act as needed Aerosol Escitalopram [...] mouth 8caps Jeremiah Zendejas NP 12/25/2015 - [id number] once a week x's 02/22/2016 Capsules 8 weeks Nystop apply topically 1units B37.2 Jeremiah Zendejas NP 12/20/2015 - [id number]/GM to rash twice a 02/22/2016 Powder day until rash resolved Cefdinir 1 capsule twice 20caps J01.90 Jeremiah Zendejas NP 10/30/2015 - 300mg a day x's 10 11/09/2015 Capsules days Ipratropium [place] instill 2 sprays 1units J01.90 Jeremiah Zendejas NP 2014 - in each nostril 11/13/2015 0.03% Solution three times a day as needed nasal congestion Penicillin V 1 tablet by 20tabs Jeremiah Zendejas NP 10/12/2015 - Potassium mouth bid x10 10/22/2015 500mg days Tablets Clindamycin HCL 1 capsule by 30caps J02.9 Jeremiah Zendejas NP 10/11/2015 - 300mg mouth three 10/12/2015 Capsules times a day x's 10 days Cepacol Sore Throat J02.9 Jeremiah Zendejas NP 10/11/2015 - 10/16/2015 5.4mg Lozenges Freestyle Lancets test bs once 100units Jose Bell, 09/28/2015 - daily and as BARREL S[employer]ER 08/16/2018 [facility] needed Freestyle System 250.02 Jeremiah Zendejas, [employer] 09/28/2015 - Kit 08/16/2018 Freestyle Test test strips use 100units Jose Bell, 09/28/2015 - daily as BARREL S[employer]ER 08/16/2018 Strips directed Topiramate take 3 by mouth 90caps G43.909 Clinton PearceBryant [place], 09/10/2015 - 25mg Caps at bedtime M.D. 10/17/2016 Sprinkle Naproxen 1 tab by mouth 14tabs Jeremiah Zendejas, [employer] 08/24/2015 - 500mg every 12 hours. 11/13/2015 Tablets prn Benzonatate 1 tab by mouth 30caps R05 Jose Bell, 08/22/2015 - 100mg three times a [employer]ER 07/15/2018 Capsules day as needed J00 [place] 1 tab every 6 6tabs Jeremiah Zendejas, 07/05/2015 - 7.5-325mg Tablets hours up to twice [employer]IBLE 07/08/2015 a day x3 days [place] 1 tab every 6 30tabs 522.0 Jeremiah Zendejas, 06/22/2015 - 7.5-325mg Tablets hours prn pain [employer] SU[employer] 07/05/2015 Nystatin swish and swallow 225ml Jeremiah Zendejas, 05/26/2015 - [id number]/ML 5ml four times a [employer] SUBM[employer]IBLE 06/05/2015 Suspension day x's 10 days Clindamycin HCL 1 capsule by 30caps 462 Jeremiah Zendejas, 05/16/2015 - 300mg mouth three times [employer]BM[employer]IBLE 05/26/2015 Capsules a day x's 10 days Medrol (Tj) take as 1tabs 462 Jeremiah Zendejas, 05/16/2015 - 4mg Tablets prescribed P[employer] SUBMERSIBLE 05/26/2015 Amoxicillin take one tablet 20tabs 380.13 Jeremiah Zendejas, 05/09/2015 - 875mg Tablets by mouth twice a [employer] SU[employer]IBLE 05/19/2015 day x's 10 days Cheratussin ac 1-2 teaspoon by 120ml 786.2 Jeremiah Zendejas, 05/09/2015 - mouth every 4 to [employer] SUBM[employer]IBLE 05/19/2015 100-10mg/5ML Syrup 6 hours as needed cough Amoxicillin take one tablet 14tabs 381.4 Jeremiah Zendejas, 03/06/2015 - 875mg Tablets by mouth twice a [employer] SU[employer]IBLE 03/17/2015 day x's 7 days Darlyn Allergy 1 tab by mouth 30tabs 461.1 Jeremiah Zendejas, 03/06/2015 - 180mg daily x's 4-6 [employer] SUBM[employer]IBLE 03/17/2015 Tablets weeks Zyrtec Allergy 1 by mouth every 30caps Goltry 02/10/2015 - 10mg day Pachikara, 02/14/2015 Capsules M.D. Prednisone 5 pillsx's2days, 30tabs 698.9 Jeremiah Zendejas, 02/02/2015 - 10mg Tablets 4pillsx's2days, P[employer] SUBMERSIBLE 02/12/2015 3pillsx's2days, 2pillsx's2days,1p illx's2days,then stop Darlyn Allergy 2 tab by mouth 60tabs 698.9 Goltry 02/02/2015 - 180mg daily Pachikara, 02/10/2015 Tablets M.D. Ranitidine HCL 1 capsule po bid 60caps 698.9 Jeremiah Zendejas, 02/02/2015 - 150mg [employer] SUBM[employer]IBLE 03/06/2015 Capsules Hydroxyzine HCL 2 tab by mouth 698.8 Jeremiah Zendejas 02/02/2015 - 25mg every 6 hours as [employer] SUBM[employer]IBLE 02/02/2015 Tablets needed for itching Hydroxyzine HCL 2 tab by mouth 56tabs 698.8 Jeremiah Zendejas 01/26/2015 - 25mg every 6 hours as [employer] SUBM[employer]IBLE 02/02/2015 Tablets needed for itching Triamcinolone apply topically 30G Jeremiah Zendejas 01/23/2015 - Acetonide twice a day to [employer] 01/26/2015 0.1% Cream affected sites Lorazepam 1 by mouth tid as 15tabs Claudia 01/16/2015 - 0.5mg Tablets needed DO Jean Claude 01/16/2015 Lorazepam 1 by mouth tid as 15tabs Jeremiah Zendejas 01/16/2015 - 0.5mg Tablets needed [employer] SU[employer]IBLE 01/16/2015 Alprazolam 1/2-1 tab by 60tabs Jeremiah Zendejas 01/16/2015 - 0.5mg Tablets mouth twice a day [employer]IBLE 03/17/2015 as needed Hydrocortisone Plus apply tid daily 1tube Jeremiah Zendejas 01/16/2015 - 1% until rash [employer] SUBM[employer]IBLE 01/26/2015 Cream resolved Tudorza Pressair 1 inhalation po 1units 493.10 Jeremiah Zendejas, 01/13/2015 - qd [employer] SUBM[employer]IBLE 02/02/2015 400mcg/Act Aerosol Ranitidine 150 Maximum 1 tablet po qd 30tabs 698.8 Jeremiah Zendejas, 2014 - Strength until hives P[employer] SUBM[employer]IBLE 02/02/2015 150mg Tablets resolve Hydroxyzine HCL 2 tab by mouth 56tabs 698.8 Jeremiah Zendejas, 01/13/2015 - 25mg every 6 hours as [employer] SUBM[employer]IBLE 01/16/2015 Tablets needed for itching Alprazolam 1 PO daily 20tabs Jeremiah Zendejas, 01/05/2015 - 0.5mg Tablets [employer]IBLE 01/16/2015 Dispers Vitamin D 1 by mouth every 30tabs J00 Jeremiah Zendejas, 12/11/2014 - 1000Unit day P[employer] SUBM[employer]IBLE 10/31/2016 Tablets Polytrim 1 drop left eye 1units 372.00 Jeremiah Zendejas, 12/07/2014 - every four hours P[employer] SUBM[employer]IBLE 12/12/2014 17980-0.1Unit/ML-% while awake x's 5 Solution days Hydroxyzine HCL 2 tab by mouth 56tabs 698.8 Jeremiah Zendejas, 10/11/2014 - 25mg every 6 hours as [employer] SUBM[employer]IBLE 01/13/2015 Tablets needed for itching Permethrin apply from neck 1units 133.0 Jeremiah Zendejas, 10/11/2014 - 5% Cream to toes topically PIL[employer] SUBMERSIBLE 12/07/2014 leave on 8-14 hours then bath off. repeat in 7 days. Clarithromycin 1 tab po bid x's 14tabs Jeremiah Zendejas, 09/29/2014 - 500mg 7 days P[employer] SUBM[employer]IBLE 10/06/2014 Tablets Afrin 12 Hour 2-3 sprays both 1units Jeremiah Zendejas, 09/29/2014 - 0.05% nares every 12 [employer] SUBM[employer]IBLE 12/07/2014 Solution hours as needed rhinorhea Amoxicillin/Clavulanat 1 tablet by mouth 20tabs 461.9 Jeremiah Zendejas, 2013 - e Potassium twice a day x's PILOT SUBMERSIBLE 09/29/2014 875-125mg 10 days Tablets Cheratussin ac 1-2 teaspoon by 120ml 786.2 Jeremiah Zendejas 09/26/2014 - mouth every 4 to PILOT SUBMERSIBLE 10/01/2014 100-10mg/5ML Syrup 6 hours as needed cough Citalopram Take One Tablet 30tabs F33.9 Goltry 08/30/2014 - Hydrobromide By Mouth Every Pachikara, 03/12/2018 20mg Tablets Day Along With 10 M.D. MG Tablet To Equal Total Daily Dose Of 30 MG Citalopram 1 tablet po daily 30tabs 311 Jeremiah Barbadian, 08/22/2014 - Hydrobromide PILOT SUBMERSIBLE 08/30/2014 40mg Tablets Prednisone 2 by mouth every 10tabs Unknown 08/18/2014 - 20mg Tablets day 09/26/2014 Cheratussin ac 1-2 tsp by mouth 236ml Jeremiah Barbadian, 08/18/2014 - every 4 to 6 PILOT SUBM[employer]IBLE 09/26/2014 100-10mg/5ML Syrup hours as needed cough Zithromax 1 tab take 2 on 11tabs Unknown 08/18/2014 - 250mg Tablets day 1, then 1 09/26/2014 daily Sertraline HCL 1 po qd 30tabs Clinton Blanco 12/16/2013 - 100mg Pablo Yadav 08/09/2014 Tablets Sertraline HCL take 1.5 po qd 45tabs Dedra Aparicio 07/12/2013 - 50mg Pablo Rea 12/16/2013 Tablets Sertraline HCL 3 po qhs 90tabs Clinton Blanco 06/16/2013 - 25mg Pablo Yadav 07/12/2013 Tablets Symbicort 2 puff inhaled 1units 493.90 Jeremiah Zendejas, 02/25/2013 - 160-4.5mcg/Act twice a day PIL[employer] SUBM[employer]IBLE 05/09/2015 Aerosol Keppra 1 po at bedtime 30tabs 345.91 Clinton Blanco 02/11/2013 - 500mg Tablets Pablo Yadav 06/16/2013 Spiriva Handihaler 1 inhalation po 30caps 780.4 Goltry 10/27/2012 - [facility] 02/25/2013 Capsules M.D. Prednisone 5tabx 2days,4 30tabs 493.90 Goltry 09/28/2012 - 10mg Tablets [id number] Pachikara, 10/27/2012 [id number],2tabx2 M.D. days,1tabxday. Topamax 1 tab PO hs 30tabs 346.92 Goltry 09/07/2012 - 25mg Tablets Pachikara, 09/28/2012 Pablo Lamotrigine 3 by mouth every 210tabs Clinton Blanco 07/21/2012 - 100mg Tablets morning and 4 Pablo Yadav 01/15/2019 every night at bedtime Symbicort 2 puff inhaled 1units 493.90 Yudi 07/20/2012 - 80-4.5mcg/Act bid Pablo Carlin 02/25/2013 Aerosol Sertraline HCL Take One Tablet 90tabs Yudi 07/20/2012 - 50mg By Mouth One Time Pablo Carlin 06/16/2013 Tablets Daily Citalopram 1 by mouth every 30tabs Unknown - Hydrobromide day 08/22/2014 20mg Tablets Oxymetazoline HCL Unknown - 0.05% 10/11/2014 Solution Hydroxyzine HCL 1 po bid if 30tabs Jeremiah Zendejas, - 50mg needed PILOT SUBMERSIBLE 11/13/2015 Tablets Lorazepam 1 po q 8 to 12 Unknown - 1mg Tablets hours as needed 06/13/2015 Citalopram Unknown - Hydrobromide 03/02/2015 20mg Tablets Acetaminophen 2 tablets every 240tabs Jeremiah Zendejas, - 500mg 6-8 hours as PILOT SUBMERSIBLE 10/29/2016 Tablets needed for pain Dulera 2 puff twice a Unknown - 100-5mcg/Act day 06/13/2015 Aerosol Zithromax one by mouth one Unknown - 500mg Tablets per day 08/14/2015 Flonase Allergy Relief 2 intranasal 9.900ml Tanvir - twice a day Pachikara, 11/17/2018 50mcg/Act Suspension M.Eboyn Keflex 1 by mouth three Unknown - 500mg Capsules times a day 10/11/2015 Robitussin Chest 1-2 teaspoon at 118ml Baldev Beck - Congestion night as needed Rosalia, 10/10/2016 100mg/5ML M.DBryant,FACP Syrup Ra Motion Sickness take 1/2 tab by 30tabs Jeremiah Zendejas, - Relief mouth three times PILOT SUBMERSIBLE 04/08/2017 25mg Tablets daily if needed for [...] Blanco - 25[facility]ts [place] [facility] [place] 03/10[facility]2019 bedtime with 2(200 mg tabs) [...] every 30caps Jeremiah Zendejas, - 10mg day PILOT SUBMERSIBLE 02/02/2015 Capsules Phenazopyridine HCL 1 by mouth [...] 90caps Jeremiah Zendejas, - 18mcg mouth every PILOT SUBMERSIBLE 01/13/2015 Capsules morning Proair HFA 2 puffs by mouth 1units Unknown - 108(90Base) every 4 hours as 10/11/2014 mcg/Act Aerosol needed Vitamin D3 Maximum 1 by mouth every 8caps Unknown - Strength week 12/11/2014 [id number] Capsules Lorazepam 1 by mouth tid as 15tabs Unknown - 0.5mg Tablets needed 10/11/2014 Cetirizine HCL 1 by mouth every Unknown - 10mg day 08/17/2014 Tablets Omeprazole 1 by mouth every 30caps Jeremiah Zendejas, - 40mg Capsules day PILOT SUBMERSIBLE 02/02/2015 DR Conroy CPT Code Status Date Vaccine Reaction Lot # [id number] Given 08/19/2018 Influenza Virus Vaccine, [id number] Quadrivalent, Split, Preservative Free 02591 Given 07/28/2018 Influenza Virus Vaccine, Quadrivalent, Split, Preservative Free 22672 Given 07/28/2018 Influenza Virus Vaccine, Quadrivalent, Split, Preservative Free 34844 Given 01/21/2018 Influenza Virus Vaccine, [id number] Quadrivalent, Split, Preservative Free 08850 Given 10/16/2017 Pneumonia Vaccine no reaction, pt [id number] tolerated well Q2035 Given 10/16/2015 Afluria Vaccine [id number] Given 08/20/2012 Tdap - [id number] Tetanus/Diptheria/Acellula r Pertussis Q2038 Given 07/20/2012 Fluzone Vaccine [id number] Ordered 07/04/2016 Afluria Vaccine Vital Signs Date Vital Result Comment 04/27/2019 1:12pm Height 67 inches 5'7" Weight 360.25 lb Heart Rate 82 /min BP Systolic Sitting 136 mmHg BP Diastolic Sitting 84 mmHg Respiratory Rate 18 /min BMI (Body Mass Index) 56.4 kg/m2 04/07/2019 10:44am Height 67 inches 5'7" Weight 361.38 lb Heart Rate 88 /min BP Systolic 134 mmHg BP Diastolic 83 mmHg BP Systolic Sitting 142 mmHg manual RT upper arm BP Diastolic Sitting 84 mmHg manual RT upper arm Body Temperature 97.8 F O2 % BldC Oximetry 96 % BMI (Body Mass Index) 56.6 kg/m2 04/01/2019 8:41am Height 67 inches 5'7" Weight 354.00 lb Heart Rate 80 /min BP Systolic Sitting 180 mmHg BP Diastolic Sitting 98 mmHg Respiratory Rate 18 /min BMI (Body Mass Index) 55.4 kg/m2 03/10/2019 12:37pm Height 67 inches 5'7" Weight [...] Date Facility Test Result H/L Range Note Urinalysis Profile 04/03/2019 [facility] Urine [place] [address] [phone] Urine Appearance Cloudy Urine Specific [place] 1.014 N 1.010-1.030 Urine pH 7.0 N 5-9 Urine Urobilinogen Negative Negative Urine Ketones Negative Negative Urine Protein Negative Negative Urine Leukocytes 1+ Abnormal Negative Urine Blood 1+ Abnormal Negative Urine Nitrite Negative Negative Urine Bilirubin Negative Negative Urine Glucose Negative Negative Urine White Blood Cell Trace(0-5/hpf) Absent Urine Red Blood Cell Absent Absent Urine Bacteria Absent Absent Urine Squamous Epithelial Cell Present Abnormal Absent Urine Culture And 04/03/2019 [facility] Urine Culture SEE RESULT [address] [place] [address] [phone] CBC Auto Diff 04/03/2019 [facility] White Blood 7.8 10^3/uL N 3.5-[address] Count [address] [place] [address] [phone] Red Blood Count 4.08 10^6/uL N 3.70-4.87 Hemoglobin 13.3 g/dL N 12.0-16.0 Hematocrit 40 % N 35-47 Mean Corpuscular Volume 97 fL N 80-97 Mean Corpuscular Hemoglobin 33 pg High 27-31 Mean Corpuscular HGB Conc 33 g/dL N 31-36 Red Cell Distribution Width 13 % N 10.5-15 Platelet Count 336 10^3/uL N 150-450 Mean Platelet Volume 7.1 fL Low 7.4-10.4 Abs Neutrophils 5.1 10^3/uL N 1.5-7.7 Abs Lymphocytes 1.9 10^3/uL N 1.0-4.8 Abs Monocytes 0.4 10^3/uL N 0-0.8 Abs Eosinophils 0.3 10^3/uL N 0-0.6 Abs Basophils 0.1 10^3/uL N 0-0.2 Abs Nucleated RBC 0.0 10^3/uL Granulocyte % 65.5 % Lymphocyte % 24.5 % Monocyte % 5.6 % Eosinophil % 3.5 % Basophil % 0.9 % Nucleated Red Blood Cells % 0.1 Comp Metabolic Panel 04/03/2019 [facility] Sodium 137 mmol/L N 135-[address] [place] [address] [phone] Potassium 4.3 mmol/L N 3.5-5.0 Chloride 105 mmol/L N 101-111 Co2 Carbon Dioxide 25 mmol/L N 22-32 Anion Gap 7 mmol/L N 2-11 Glucose 136 mg/dL High 70-100 Blood Urea Nitrogen 12 mg/dL N 6-24 Creatinine 0.76 mg/dL N 0.51-0.95 BUN/Creatinine Ratio 15.8 N 8-20 Calcium 9.5 mg/dL N 8.6-10.3 Total Protein 7.2 g/dL N 6.4-8.9 Albumin 4.3 g/dL N 3.2-5.2 Globulin 2.9 g/dL N 2-4 Albumin/Globulin Ratio 1.5 N 1-3 Total Bilirubin 0.40 mg/dL N 0.2-1.0 Alkaline Phosphatase 77 U/L N 34-104 Alt 17 U/L N 7-52 Ast 18 U/L N 13-39 Egfr Non- 85.6 >60 Egfr 103.6 >60 2 Laboratory test 04/03/2019 [facility] HCG < 0.60 mIU/ mL [address] [place] [address] [phone] Urine Culture And 02/13/2019 [facility] Urine Culture SEE RESULT [address] [place] [address] [phone] Urinalysis Profile 02/13/2019 [facility] Urine Color Yellow [address] [place] [address] [phone] Urine Appearance Cloudy Urine Specific [place] 1.020 N 1.010-1.030 Urine pH 7.0 N 5-9 Urine Urobilinogen Negative Negative Urine Ketones Negative Negative Urine Protein Negative Negative Urine Leukocytes 1+ Abnormal Negative Urine Blood Negative Negative * * Abnormal Negative 5 Urine Nitrite Negative Negative Urine Bilirubin Negative Negative Urine Glucose Negative Negative Urine White Blood Cell 1+(6-10/hpf) Abnormal Absent Urine Red Blood Cell Absent Absent Urine Bacteria Absent Absent Urine Squamous Epithelial Cell Present Abnormal Absent Laboratory test 02/13/2019 [facility] HCG < 0.60 mIU/ mL [address] [place] [address] [phone] Lamotrigine (Lamictal) 8.3 g/mL 2.5 - 15.0 7 Basic Metabolic Panel 02/13/2019 [facility] Sodium 140 mmol/L N 135-[address] [place] [address] [phone] Potassium 4.5 mmol/L N 3.5-5.0 Chloride 106 mmol/L N 101-111 Co2 Carbon Dioxide 27 mmol/L N 22-32 Anion Gap 7 mmol/L N 2-11 Glucose 115 mg/dL High 70-100 Blood Urea Nitrogen 10 mg/dL N 6-24 Creatinine 0.65 mg/dL N 0.51-0.95 BUN/Creatinine Ratio 15.4 N 8-20 Calcium 9.3 mg/dL N 8.6-10.3 Egfr Non- 102.6 >60 Egfr 124.1 >60 8 CBC Auto Diff 02/13/2019 [facility] [facility] White Blood 8.4 10^3/uL N 3.5-10.[address] [place] [address] [phone] Red Blood Count 4.17 10^6/uL N 3.70-4.87 [...] % Nucleated Red Blood Cells % 0.1 Laboratory test 02/13/2019 [facility] TSH (Thyroid 3.55 mcIU/mL N 0.34-5.[address] Stim Horm) [place], [place] [id number] [phone] Rapid Influenza 01/30/2019 [facility] Influenza A NEGATIVE Negative 9 A & B Molecular [address] Molecular [place], [place] [id number] [phone] Influenza B Molecular NEGATIVE Negative Laboratory test 01/30/2019 [facility] Rapid SEE RESULT [address] [place] [address] Antigen [phone] Urine Culture And 01/17/2019 [facility] Urine Culture SEE RESULT [address] [place] [address] [phone] Laboratory test 01/17/2019 [facility] Magnesium 1.8 mg/dL Low 1.9-[address] .7 [place], [place] [id number] [phone] Creatine Kinase(CK) 84 U/L N 10-223 Alcohol < 10 mg/dL N <10 TSH (Thyroid Stim Horm) 3.86 mcIU/mL N 0.34-5.60 HCG < 0.60 mIU/mL 12 Comp Metabolic Panel 01/17/2019 [facility] Sodium 138 mmol/L N 135-[address] [place] [address] [phone] Potassium 4.0 mmol/L N 3.5-5.0 Chloride 105 [...] Egfr Non- 91.1 >60 Egfr 110.3 >60 13 Laboratory test 01/17/2019 [facility] Lactic Acid 1.8 mmol/L N 0.5-2.0 [address] [place] [address] [phone] CBC Auto Diff 01/17/2019 [facility] White Blood 7.7 10^3/uL N 3.5-10.[address] [place] [address] [phone] Red Blood Count 3.97 10^6/uL Low 4.00-5.40 [...] Blood Cells % 0 Laboratory test 01/17/2019 [facility] Partial 28.7 seconds N 26.0-36.[address] [place] [address] PTT [phone] Inr/Protime 01/17/2019 [facility] Inr 0.96 N 0.77-1.02 [place] [address] [phone] Urinalysis 01/17/2019 [facility] Urine [place] [address] [phone] Urine Appearance Cloudy Urine Specific [place] 1.017 N 1.010-1.030 Urine pH 6.0 N 5-9 Urine Urobilinogen Negative Negative Urine Ketones Negative Negative Urine Protein Negative Negative Urine Leukocytes 1+ Abnormal Negative Urine Blood Negative Negative * * Abnormal Negative 15 Urine Nitrite Negative Negative Urine Bilirubin Negative Negative Urine Glucose Negative Negative Urine White Blood Cell 1+(6-10/hpf) Abnormal Absent Urine Red Blood Cell Trace(0-2/hpf) Absent Urine Bacteria Absent Absent Urine Squamous Epithelial Cell Present Abnormal Absent Urine Drug 01/17/2019 [facility] Amphetamine Ur None Detected None Detect SCR ED & [address] [place] [address] [phone] Barbiturates Urine Screen None Detected None Detect Benzodiazepine Urine Screen None Detected None Detect Urine Cannabinoids Screen None Detected None Detect Urine Cocaine Screen None Detected None Detect Urine Opiates Screen None Detected None Detect Urine Phencyclidine Screen None Detected None Detect 16 Laboratory test 01/04/2019 [facility] TSH (Thyroid 2.58 mcIU/mL N 0.34-5.[address] Stim Horm) [place] [address] [phone] Lamotrigine (Lamictal) 11.2 g/mL 2.5 - 15.0 18 Comp Metabolic Panel 01/04/2019 [facility] Sodium 137 mmol/L N 135-[address] [place] [address] [phone] Potassium 4.1 mmol/L N 3.5-5.0 Chloride 105 [...] Egfr Non- 91.1 >60 Egfr 110.3 >60 19 CBC Auto Diff 01/04/2019 [facility] White Blood 6.9 10^3/uL N 3.5-10.[address] [place] [address] [phone] Red Blood Count 4.16 10^6/uL N 4.00-5.40 [...] Blood Cells % 0 Poc Urinalysis 01/04/2019 [facility] Poc Glucose, Negative Negative [address] [place] [address] [phone] Poc Bilirubin, Urine Negative Negative Poc Ketone, Urine Negative Negative Poc Specific [place], Urine 1.020 N 1.010-1.030 Poc Blood, Urine 1+ Abnormal Negative Poc pH, Urine 7.5 N 5-9 Poc Protein, Urine Negative Negative Poc Urobilinogen, Urine 0.2 Negative Poc Nitrite, Urine Negative Negative Poc Leukocytes, Urine 3+ Abnormal Negative Poc Color, Urine Yellow Poc Clarity, Urine Clear 20 Urine Culture And 01/04/2019 [facility] Urine Culture SEE RESULT 21, [address] [place] [address] [phone] Laboratory test 12/29/2018 [facility] Fecal SEE RESULT [address] [place] [address] (Stool WBC) [phone] CBC Auto Diff 12/05/2018 [facility] White Blood 8.4 N 3.5- [address] Count 10^3/uL 10.8 [place] [address] [phone] Red Blood Count 4.29 10^6/uL N 4.00-5.40 [...] Cells % 0 Comp Metabolic Panel 12/05/2018 [facility] Sodium 140 mmol/L N 135-[address] [place] [address] [phone] Potassium 4.4 mmol/L N 3.5-5.0 Chloride 105 [...] Egfr Non- 89.7 >60 Egfr 108.5 >60 24 Laboratory test 12/05/2018 [facility] Lipase < 10 U/L Low 11.0 -82.[address] [place] [address] [phone] HCG < 0.60 mIU/mL 25 Laboratory test 11/17/2018 [facility] Rapid Strep Negative Negative [address] [place] [address] [phone] Laboratory test 11/17/2018 [facility] Rapid Strep A SEE RESULT [address] [place] [address] [phone] Laboratory test 10/23/2018 [facility] Rapid Strep Negative Negative [address] [place] [address] [phone] Laboratory test 06/25/2018 [facility] TSH (Thyroid 3.56 mcIU/mL N 0.34-5.[address] Stim Horm) [place] [address] [phone] CBC Auto Diff 06/25/2018 [facility] White Blood 6.9 10^3/uL N 3.5-10.[address] [place] [address] [phone] Red Blood Count 3.80 10^6/uL Low 4.00-5.40 [...] % 0.1 Iron & Iron Binding 06/25/2018 [facility] Iron 52 g/dL N 50- 212 Capacity [address] [place] [address] [phone] Unsaturated Iron Binding 280 g/dL Total Iron Binding Capacity 332 g/dL N 250-450 Transferrin 237 mg/dL N 203-362 % Iron Saturation 16 % N 15-55 Vitamin B12 And 05/01/2018 [facility] Vitamin B12 537 pg/mL N 180-914 29 Folate Serum [address] [place] [address] [phone] Folic Acid (Folate) 6.33 ng/mL >3.99 Laboratory test 05/01/2018 [facility] Ferritin 14.5 ng/mL N 11 -307 finding [address] [place] [address] [phone] CBC Auto Diff 05/01/2018 [facility] White Blood 4.7 10^3/uL N 3.5-10.[address] [place] [address] [phone] Red Blood Count 3.74 10^6/uL Low 4.00-5.40 [...] Blood Cells % 0 Lipid Profile 05/01/2018 [facility] Triglycerides 221 mg/dL 30 (Trig/Chol/HDL) [address] [place] [address] [phone] Cholesterol 171 mg/dL 31 HDL Cholesterol 26.6 mg/dL 32 LDL Cholesterol 100 mg/dL 33 Iron & Iron Binding 05/01/2018 [facility] Iron 32 g/dL Low 50-212 Capacity [address] [place] [address] [phone] Unsaturated Iron Binding 298 g/dL Total Iron Binding Capacity 330 g/dL N 250-450 Transferrin 236 mg/dL N 203-362 % Iron Saturation 10 % Low 15-55 Laboratory 05/01/2018 [facility] TSH (Thyroid 6.43 High 0.34- 5.60 [address] Stim Horm) mcIU/[place] [address] [phone] Lipid Profile 04/22/2018 [facility] Triglycerides 177 mg/dL 35 (Trig/Chol/HD DRIVE L) [place] [address] [phone] Cholesterol 172 mg/dL 36 HDL Cholesterol 34.1 mg/dL 37 LDL Cholesterol 103 mg/dL 38 Laboratory test 04/22/2018 [facility] TSH (Thyroid 4.16 mcIU/mL N 0.34-5.[address] Stim Horm) [place] [address] [phone] CBC Auto Diff 04/22/2018 [facility] White Blood 7.5 10^3/uL N 3.5-10.8 [place] [address] [phone] Red Blood Count 3.55 10^6/uL Low 4.00-5.40 [...] Red Blood Cells % 0 Laboratory 04/10/2018 [facility] Rapid Strep Negative Negative [address] [place] [address] [phone] Laboratory 04/10/2018 [facility] Rapid Strep A SEE RESULT [address] [place] [address] [phone] Laboratory 04/02/2018 [facility] Lamotrigine 15.9 g/mL 2.5 - 15.[address] (Lamictal) [place] [address] [phone] Comp Metabolic 04/02/2018 [facility] Sodium 137 mmol/L Low 139 -[address] [place] [address] [phone] Potassium 4.0 mmol/L N 3.5-5.0 Chloride 104 [...] Egfr Non- 83.6 >60 Egfr 107.5 >60 42 Laboratory test 03/10/2018 [facility] Lamotrigine 13.1 g/mL 2.5 - [address] (Lamictal) 15.0 [place] [address] [phone] Laboratory test 08/25/2017 [facility] TSH (Thyroid 1.89 N 0.34 -5.[address] Stim Horm) mcIU/mL 0 [place] [address] [phone] Comp Metabolic 07/22/2017 [facility] Sodium 137 mmol/L N 133- [address] [place] [address] [phone] Potassium 4.1 mmol/L N 3.5-5.0 Chloride 105 [...] 72.2 N >60 Egfr 92.8 N >60 44 Laboratory test 07/22/2017 [facility] Hemoglobin A1c 5.2 % N Less than [address] (Glyco HGB) 6.0 [place] [address] [phone] Ua Routine 06/18/2017 [employer] [facility] Ua Specific 1.015 [place] Ua PH 6 Ua Color martín Ua Appera cloudy Ua WBC trace Ua Protein trace Ua Glucose neg Ua Ketones neg Ua Bilirubin neg Ua Urobilinogen neg Ua Nitrite neg Ua Occult Blood large Urine Culture And 06/18/2017 [facility] Urine Culture SEE RESULT [address] [place] [address] [phone] Laboratory test 04/08/2017 [facility] Thyroglobulin AB <1.8 IU/ mL N <4.0 [address] [place] [address] [phone] Thyroperoxidase AB 315.57 IU/mL High <9 Free T4 (Free Thyroxine) 0.67 ng/dL N 0.61-1.12 TSH (Thyroid Stim Horm) 4.16 mcIU/mL N 0.34-5.60 Comp Metabolic Panel 04/04/2017 [facility] Sodium 138 mmol/L N 133-[address] [place] [address] [phone] Potassium 3.7 mmol/L N 3.5-5.0 Chloride 107 [...] 86.6 N >60 Egfr 111.4 N >60 48 CBC Auto Diff 04/04/2017 [facility] White Blood 8.2 10^3/uL N 3.5-10.[address] [place] [address] [phone] Red Blood Count 3.94 10^6/uL Low 4.0-5.4 [...] Cells % 0 N Laboratory test 04/04/2017 [facility] Monospot Negative N Negative finding [address] [place] [address] [phone] Urinalysis Profile 04/04/2017 [facility] Urine Color Yellow N [address] [place] [address] [phone] Urine Appearance Cloudy N Urine Specific [place] 1.019 N 1.010-1.030 Urine pH 7.0 N [...] Present Abnormal Absent Urine Culture And 04/04/2017 [facility] Urine Culture SEE RESULT [address] [place] [address] [phone] Laboratory test 04/04/2017 [facility] Lactic Acid 1.7 mmol/L N 0.5-[address] [place] [address] [phone] Rapid Strep A SEE RESULT BELOW 51 Laboratory test 04/04/2017 [facility] Magnesium 1.8 mg/dL Low 1.9-2.[address] [place] [address] [phone] Troponin-I (TnI) 0.00 ng/mL N <0.04 52 TSH (Thyroid Stim Horm) 6.69 mcIU/mL High 0.34-5.60 Laboratory 04/04/2017 [facility] Rapid Strep Negative N Negative [address] [place] [address] [phone] Laboratory 10/02/2016 [facility] Lamotrigine 12.6 g/mL N 2.5 - 15.[address] (Lamictal) [place] [address] [phone] Topomax (Topiramate) 2.3 g/mL N 55 CBC Auto Diff 10/02/2016 [facility] White Blood 6.9 10^3/uL N 3.5-10.[address] [place] [address] [phone] Red Blood Count 4.03 10^6/uL N 4.0-5.4 [...] % 0 N Comp Metabolic Panel 10/02/2016 [facility] Sodium 136 mmol/L N 133-[address] [place] [address] [phone] Potassium 3.8 mmol/L N 3.5-5.0 Chloride 108 [...] 74.5 N >60 Egfr 95.9 N >60 56 CBC Auto Diff 03/10/2016 [facility] White Blood 9.6 10^3/uL N 3.5-10.[address] [place] [address] [phone] Red Blood Count 4.58 10^6/uL N 4.0-5.4 [...] Cells % 0 N Laboratory test 03/10/2016 [facility] Partial 31.7 seconds N 26.0-36.[address] [place] [address] PTT [phone] Lactic Acid 1.3 mmol/L N 0.5-2.0 57 Laboratory test 03/10/2016 [facility] HCG < 0.60 mIU/ mL N [address] [place] [address] [phone] TSH (Thyroid Stim Horm) 1.40 ?IU/mL N 0.34-5.60 B-Type Natriuretic Peptide BNP 18 pg/mL N 59 Lamotrigine (Lamictal) 14.9 g/mL N 2.5 - 15.0 60 Comp Metabolic Panel 03/10/2016 [facility] Sodium 137 mmol/L N 133-145 [address] [place] [address] [phone] Potassium 3.7 mmol/L N 3.5-5.0 Chloride 108 [...] 72.6 N >60 Egfr 93.4 N >60 61 Inr/Protime 03/10/2016 [facility] Inr 1.10 N 0.89-1.11 [address] [place] [address] [phone] Laboratory test 03/10/2016 [facility] Magnesium 2.2 mg/dL N 1.9-2.7 finding [address] [place] [address] [phone] Lipase 8 U/L Low 11.0-82.0 Creatine Kinase(CK) 63 U/L N 10-223 C Reactive Protein 14.41 mg/L High < 5.00 62 Troponin-I (TnI) 0.00 ng/mL N <0.03 63 CKMB 03/10/2016 [facility] CKMB ng/mL 1.1 ng/mL N 0.6-6.[address] [place] [address] [phone] Laboratory test 02/26/2016 [facility] Vitamin D 31.3 ng/mL N 30-[address] Total 25(Oh) [place] [address] [phone] Basic Metabolic 01/01/2016 [facility] Sodium 138 mmol/L N 133- [address] [place] [address] [phone] Potassium 4.0 mmol/L N 3.5-5.0 Chloride 108 mmol/L N 101-111 Co2 Carbon Dioxide 22 mmol/L N 22-32 Anion Gap 8 mmol/L N 2-11 Glucose 92 mg/dL N 70-100 Blood Urea Nitrogen 9 mg/dL N 6-24 Creatinine 0.75 mg/dL N 0.51-0.95 BUN/Creatinine Ratio 12.0 N 8-20 Calcium 9.2 mg/dL N 8.6-10.3 Egfr Non- 88.5 N >60 Egfr 113.8 N >60 64 Laboratory test 01/01/2016 [facility] Alkaline 78 U/L N 34- [address] [place] [address] [phone] CBC Auto Diff 01/01/2016 [facility] White Blood Count 8.8 N 3.5-10.[address] 10^3/[place] [address] [phone] Red Blood Count 4.00 10^6/uL N 4.0-5.4 [...] Cells % 0 N Laboratory test 12/25/2015 [facility] Vitamin D 25.9 ng/mL Low 30-50 [address] Total 25(Oh) [place], [place] [address] [phone] TSH (Thyroid Stim Horm) 4.01 ?IU/mL N 0.34-5.60 66 Lipid Profile 12/25/2015 [facility] Triglycerides 214 mg/dL N 67 (Trig/Chol/HDL) [address] [place] [address] [phone] Cholesterol 177 mg/dL N 68 HDL Cholesterol 37.5 mg/dL N 69 LDL Cholesterol 97 mg/dL N 70 Laboratory test 12/25/2015 [facility] Glucose 98 mg/dL N 70- 100 [address] [place], [place] [address] [phone] Laboratory test 12/20/2015 [facility] Cytology SEE RESULT [address] BELOW [place], [place] [address] [phone] HPV Rna Ww/Reflex Genotype Negative N Negative 73 Laboratory test 08/14/2015 [facility] Urine Culture And SEE RESULT [address] [place] [address] [phone] Laboratory test 08/14/2015 [facility] Beta HCG (BHCG) < 0.60 N finding [address] Quantitative mIU/[place] [address] [phone] Urinalysis 08/14/2015 [facility] Urine Color Yellow N Profile [address] [place] [address] [phone] Urine Appearance Cloudy N Urine Specific [place] 1.013 N 1.010-1.030 Urine pH 6.0 N [...] Present Abnormal Absent CBC Auto Diff 06/11/2015 [facility] White Blood 6.3 10^3/uL N 4.8-10.[address] [place] [address] [phone] Red Blood Count 4.38 10^6/uL N 4.0-5.4 [...] Cells % 0.1 N Laboratory test 06/11/2015 [facility] HCG Qualitative Negative N Negative [address] [place] [address] [phone] Urinalysis 06/11/2015 [facility] Urine Color Yellow N Profile [address] [place] [address] [phone] Urine Appearance Cloudy N Urine Specific [place] 1.026 N 1.010-1.030 Urine pH 5.0 N [...] Epithelial Cell Present Abnormal Absent Laboratory 06/11/2015 [facility] Lactic Acid 1.0 mmol/L N 0.5- 2.2 test finding [address] [place], [place] [address] [phone] Urine Drug SCR 06/11/2015 [facility] Amphetamine Ur None N None Detect ED & Pain [address] [place] [address] [phone] Barbiturates Urine Screen None Detected N None Detect Benzodiazepine Urine Screen None Detected N None Detect Urine Cannabinoids Screen None Detected N None Detect Urine Cocaine Screen None Detected N None Detect Urine Opiates Screen Presumptive Posi <SEE NOTE> Abnormal None Detect 76 Urine Phencyclidine Screen None Detected N None Detect 77 Laboratory test 06/11/2015 [facility] Lamotrigine 11.0 g/mL N 2.5 - [address] (Lamictal) 15.0 [place], [place] [address] [phone] Urine Culture And Sensitivities SEE RESULT BELOW 79 Laboratory test 05/16/2015 [facility] Culture SEE RESULT [address] [place] [address] [phone] CBC Auto Diff 03/16/2015 [facility] White Blood 8.6 10^3/uL N 4.8-[address] Count .8 [place] [address] [phone] Red Blood Count 4.41 10^6/uL N 4.0-5.4 [...] Cells % 0 N Laboratory test 03/16/2015 [facility] Monospot Negative N Negative [address] [place] [address] [phone] CBC Auto Diff 03/09/2015 [facility] White Blood 6.8 10^3/uL N 4.8-10.[address] [place] [address] [phone] Red Blood Count 4.28 10^6/uL N 4.0-5.4 [...] % 0 N Comp Metabolic Panel 03/09/2015 [facility] Sodium 136 mmol/L N 133-[address] [place] [address] [phone] Potassium 4.0 mmol/L N 3.5-5.0 Chloride 107 [...] 91.8 N >60 Egfr 118.1 N >60 82 Urinalysis Profile 02/16/2015 [facility] Urine Color Yellow N [address] [place] [address] [phone] Urine Appearance Cloudy N Urine Specific [place] 1.017 N 1.010-1.030 Urine pH 6.0 N [...] Present Abnormal Absent Urine Culture And 02/16/2015 [facility] Urine (SEE NOTE) [address] [place] [address] [phone] CBC Auto Diff 02/16/2015 [facility] White Blood 11.5 High 4.8- [address] Count 10^3/uL 0.8 [place] [address] [phone] Red Blood Count 4.32 10^6/uL N 4.0-5.4 [...] % 0 N Comp Metabolic Panel 02/16/2015 [facility] Sodium 139 mmol/L N 133-145 [address] [place] [address] [phone] Potassium 4.3 mmol/L N 3.5-5.0 Chloride 106 [...] 90.4 N >60 Egfr 116.2 N >60 84 Laboratory test 02/16/2015 [facility] Magnesium 2.0 mg/dL N 1.9-2.[address] [place] [address] [phone] TSH (Thyroid Stimulating Horm) 1.87 IU/mL N 0.34-5.60 Lamotrigine 7.8 g/mL N 2.5 - 15.0 85 CBC Auto 02/14/2015 [facility] White Blood 13.0 10^3/uL High 4.8-10.[address] [place] [address] [phone] Red Blood Count 4.32 10^6/uL N 4.0-5.4 [...] % 0.1 N Comp Metabolic Panel 02/14/2015 [facility] Sodium 136 mmol/L N 133-[address] [place] [address] [phone] Potassium 4.5 mmol/L N 3.5-5.0 Chloride 103 [...] 83.8 N >60 Egfr 107.8 N >60 86 Laboratory test 01/26/2015 [facility] Surgical RUN DATE: [address] Pathology 02/02/ [place] [address] <SEE NOTE> [phone] Surgical 01/26/2015 [facility] S RUN DATE: [address] 02/02/ [place] [address] <SEE NOTE> [phone] Laboratory test 12/28/2014 [facility] Lamotrigine 12.4 N 2.5 [address] g/[place] [address] 15.0 [phone] Laboratory test 12/07/2014 [facility] Lamotrigine 9.5 g/mL N 2.5 [address] [place] [address] 15.0 [phone] Vitamin D 1,25 12/07/2014 [facility] Vitamin D 98 pg/mL Abnormal 18-7 91 And Vitamin D,[address] 1,25-Dihydroxy 8 [place] [address] [phone] Vitamin D, 25 12/07/2014 [facility] 25-Hydroxy 73 ng/mL N Hydroxy [address] Vitamin D2 [place] [address] [phone] 25-Hydroxy Vitamin D3 6.3 ng/mL N 25-Hydroxy Vitamin D Total 79 ng/mL N 92 Laboratory test 12/07/2014 [employer] [facility] Hemoglobin A1c 5.1 5-7 finding Vitamin D, 25 Hydroxy 08/10/2014 25-Hydroxy Vitamin D2 41 ng/mL N 93 25-Hydroxy Vitamin D3 6.3 ng/mL N 25-Hydroxy Vitamin D Total 47 ng/mL N 94 Iron & Iron Binding Capacity 08/10/2014 Iron 46 g/dL Low 50-212 Unsaturated Iron Binding 361 g/dL N Total Iron Binding Capacity 407 g/dL N 250-450 % Iron Saturation 11 % Low 15-55 Laboratory test finding 08/10/2014 Ferritin < 10.0 ng/mL Low 11-307 95 Vitamin B12 460 pg/mL N 180-914 96 Folate 11.39 ng/mL N >3.99 97 Laboratory test 08/10/2014 TSH (Thyroid 2.24 IU/mL N 0.34-5.60 98 finding Stimulating Horm) CBC Auto Diff 08/10/2014 [...] 08/10/2014 Creatine Kinase 76 U/L N 10-223 99 Comp Metabolic Panel 08/10/2014 Sodium 137 mmol/L [...] 83.1 N >60 Egfr 106.9 N >60 100 Lipid Profile (Trig/Chol/HDL) 08/10/2014 Triglycerides 150 mg/dL N 101 Cholesterol 159 mg/dL N 102 HDL Cholesterol 26.7 mg/dL N 103 LDL Cholesterol 102 mg/dL N 104 Comp Metabolic Panel 01/10/2014 [facility] Sodium 139 mmol/L 133-[address] [place] [address] [phone] Potassium 3.9 mmol/L 3.7-5.6 Chloride 107 mmol/L [...] Egfr Non- 88.2 >60 Egfr 113.4 >60 105 CBC Auto Diff 01/10/2014 [facility] White Blood 8.7 10^3/uL 4.8-10.[address] [place] [address] [phone] Red Blood Count 4.28 10^6/uL 4.0-5.4 Hemoglobin [...] Blood Cells % 0 Laboratory test 10/28/2013 [facility] Lamotrigine 8.4 g/mL 2.5 - 15.0 [address] [place] [address] [phone] Laboratory test 09/01/2013 [facility] Lamotrigine 7.6 g/mL 2.5 - 15.0 [address] [place] [address] [phone] Laboratory test 05/29/2013 [facility] Lamotrigine 10.9 g/mL 2.5 - 15.0 [address] [place] [address] [phone] Urine Culture 05/28/2013 [facility] Urine Culture (SEE NOTE) [address] [place] [address] [phone] Laboratory test 12/15/2012 [facility] Lamotrigine 5.2 g/mL 2.5 - 15.0 [address] [place] [address] [phone] Laboratory test 10/22/2012 [facility] Serum Negative Negative [address] [place] [address] [phone] Urine Culture 10/22/2012 [facility] Urine Culture (SEE NOTE) [address] [place] [address] [phone] Throat-Beta 09/25/2012 [facility] Throat Beta (SEE NOTE) [address] [place] [address] [phone] Laboratory test 09/03/2012 [facility] Lamotrigine 3.9 g/mL 2.5 - 15.0 114 finding [address] [place] [address] [phone] Comp Metabolic 07/14/2012 [facility] Sodium 138 mmol/L 135- 145 Panel [address] [place] [address] [phone] Potassium 4.3 mmol/L 3.5-5.0 Chloride 106 mmol/L 101-111 Co2 (Carbon Dioxide) 28.0 mmol/L 22-32 Anion Gap 4.0 mmol/L 2-11 115 Glucose 93 mg/dL 70-100 BUN 10 mg/dL 6-24 Creatinine 0.8 mg/dL 0.50-1.40 One Over Creatinine 1.25 BUN/Creatinine Ratio 12.5 8-20 Calcium 9.4 mg/dL 8.1-9.9 Total Protein 6.8 GM/DL 6.2-8.1 Albumin 3.9 GM/DL 3.6-5.4 Globulin 2.9 GM/DL 2-4 Albumin/Globulin Ratio 1.3 1-3 Bilirubin Total 0.5 mg/dL 0.4-1.5 116 Alkaline Phosphatase 59 U/L 30-110 Alt (SGPT) 16 U/L 14-54 Ast (Sgot) 19 U/L 12-42 eGFR Non- 84.2 > 60 eGFR 108.3 > 60 117 CBC No Diff 07/14/2012 [facility] White Blood Count 8.2 CUMM 4.8-10.[address] [place] [address] [phone] Red Cell Count 3.83 CUMM Low 4.2-5.4 Hemoglobin 12.3 g/dL 12.0-16.0 Hematocrit 37 % 35-47 Mean Corpuscular Volume 96 um3 79-97 Mean Corpuscular Hemoglob 32 pg High 27-31 Mean Corpuscular HGB Cone 34 g/dL 32-36 Redcell Distribution WDTH 15 % 10.5-15 Platelet Count 312 CUMM 150-450 Mean Platelet Volume 8.6 um3 7.4-10.4 Laboratory test 07/14/2012 [facility] Lamotrigine 3.8 g/mL 2.5 - [address] [place] [address] [phone] 1 SEE RESULT BELOW Name: DEAN PENG : [address]: Bhavik Winter MD Acct: [id number] Unit: [id number] AGE: 38 Location: ED Re04/03/19 SEX: F Status: DEP ER SPEC: [id number] DEBBIE: 04/03/19-[address]: Kristen Winter MD REQ: [id number] RECD: 04/03/19 STATUS: TOMASA COCHRAN DR: Jose Bell PILOT SUBMERSIBLE _ SOURCE: URINE SPDESC: ORDERED: Urine Culture Procedure Result Reported Site Urine Culture Final 04/04/19- 1320 ML No growth of clinically significant organisms * ML - Main Lab . END OF REPORT DEPARTMENT OF PATHOLOGY, [address] [place] [address] Ty Guo M.D. Director [facility] # [id number] 2 Because ethnic data is not always [...] 5 Kidney failure <15 (or dialysis) 3 <5.0 Negative 5.0 - 25.0 Indeterminate (Repeat testing recommended after 72 hours) >25.0 Positive Perimenopausal women can display HCG levels of up to 20 mIU/mL 4 SEE RESULT BELOW Name: DEAN PENG : [address]: Marito Shaikh MD Acct: [id number] Unit: [id number] AGE: 38 Location: ED Re02/13/19 SEX: F Status: DEP ER SPEC: [id number] DEBBIE: 02/13/[address] [facility] [address]: Nain KOHLER REQ: [id number] RECD: 02/13/197 STATUS: TOMASA COCHRAN DR: [facility] Jose Bell PILOT SUBMERSIBLE _ SOURCE: URINE SPDESC: ORDERED: Urine Culture Procedure Result Reported Site Urine Culture Final 02/15/19- 0750 ML No growth of clinically significant organisms * ML - Main Lab . END OF REPORT DEPARTMENT OF PATHOLOGY, [address] [place] [address] Ty Guo M.D. Director [facility] # [id number] 5 *Ascorbic acid is present which may interfere with detection of blood. 6 <5.0 Negative 5.0 - 25.0 Indeterminate (Repeat testing recommended after 72 hours) >25.0 Positive Perimenopausal women can display HCG levels of up to 20 mIU/mL 7 ADDITIONAL INFORMATION This test was developed and its performance characteristics determined by [facility] in a manner consistent with CLIA requirements. This test has not been cleared or approved by the U.S. Food and Drug Administration. Test Performed by: [facility] [address] [place] [address] 8 Because ethnic data is not always [...] 5 Kidney failure <15 (or dialysis) 9 Sand Digger: [id number] 10 SEE RESULT BELOW Name: DEAN PENG : [address]: Scooter [facility] Acct: [id number] Unit: [id number] AGE: 38 Location: ED Re01/30/19 SEX: F Status: REG ER SPEC: [id number] DEBBIE: 01/30/[address]: Helena KOHLER REQ: [id number] RECD: 01/30/19 STATUS: TOMASA COCHRAN DR: Jose Bell PILOT SUBMERSIBLE _ SOURCE: NASAL SPDESC: ORDERED: Flu A B Request Procedure Result Reported Site Rapid Influenza A B Request Final 01/30/19- 1253 ML Specimen received for Influenza A/B Molecular testing * ML - Main Lab . END OF REPORT DEPARTMENT OF PATHOLOGY, [address] [place] [address] Ty Guo M.D. Director [facility] # [id number] 11 SEE RESULT BELOW Name: DEAN PENG : [address]: Marito Shaikh MD Acct: [id number] Unit: [id number] AGE: 38 Location: ED Re01/17/19 SEX: F Status: DEP ER SPEC: [id number] DEBBIE: 01/17/[address] [facility] [address]: Marito Shaikh MD REQ: [id number] RECD: 01/17/19 STATUS: TOMASA COCHRAN DR: Jose Bell PILOT SUBMERSIBLE _ SOURCE: URINE SPDESC: ORDERED: Urine Culture Procedure Result Reported Site Urine Culture Final 01/18/19- 1216 ML No growth of clinically significant organisms * ML - Main Lab . END OF REPORT DEPARTMENT OF PATHOLOGY, [address] [place] [address] Ty Guo M.D. Director [facility] # [id number] 12 <5.0 Negative 5.0 - 25.0 Indeterminate (Repeat testing recommended after 72 hours) >25.0 Positive Perimenopausal women can display HCG levels of up to 20 mIU/mL 13 Because ethnic data is not always [...] 5 Kidney failure <15 (or dialysis) 14 [facility] Severe Sepsis and Septic Shock Management Bundle Measure requires all lactic acids initially measuring >2.0 mmol/L be repeated. 15 *Ascorbic acid is present which may interfere with detection of blood. 16 The urine specimen was tested at the listed cutoffs: Drug class test level (ng/mL) Amphetamines 500 Barbiturates 200 Benzodiazepine metabolites 200 Cocaine metabolites 150 Cannabinoids 50 Opiates 300 Pcp 25 Specimen was received without chain of custody. Results should be used for medical purposes only. 17 [id number] 18 ADDITIONAL INFORMATION This test was developed and its performance characteristics determined by [facility] in a manner consistent with CLIA requirements. This test has not been cleared or approved by the U.S. Food and Drug Administration. Test Performed by: [facility] [address] [place] [address] 19 Because ethnic data is not always [...] 5 Kidney failure <15 (or dialysis) 20 Sand Digger: [id number] 22 SEE RESULT BELOW Name: DEAN PENG : [address]: Kenrick Duran MD Acct: [id number] Unit: [id number] AGE: 38 Location: [facility] Re01/04/19 SEX: F Status: LEXA URIBE SPEC: [id number] DEBBIE: 01/04/19-1244 [facility] [address]: Kenrick Duran MD REQ: [id number] RECD: 01/04/19-160 STATUS: TOMASA COCHRAN DR: Jose Bell PILOT SUBMERSIBLE _ SOURCE: URINE SPDESC: ORDERED: Urine Culture COMMENTS: [id number] Procedure Result Reported Site Urine Culture Final 01/05/19- 1222 ML No growth of clinically significant organisms * ML - Main Lab . END OF REPORT DEPARTMENT OF PATHOLOGY, [address] [place] [address] Ty Guo M.D. Director [facility] # [id number] 23 SEE RESULT BELOW Name: DEAN PENG : [address]: Kyree Gutierrez MD Acct: [id number] Unit: [id number] AGE: 38 Location: [facility] Re12/29/18 SEX: F Status: DEP ER SPEC: [id number] DEBBIE: 12/29/[address]: Kyree Gutierrez MD REQ: [id number] RECD: 12/29/18 STATUS: TOMASA COCHRAN DR: Jose Bell PILOT SUBMERSIBLE _ SOURCE: STOOL SPDESC: ORDERED: Fecal Lactoferr [...] not be used with this assay. * - [facility] . END OF REPORT DEPARTMENT OF PATHOLOGY, [address] [place] [address] Ty Guo M.D. Director [facility] # [id number] 24 Because ethnic data is not always [...] 15-29 5 Kidney failure <15 (or dialysis) 25 <5.0 Negative 5.0 - 25.0 Indeterminate (Repeat testing recommended after 72 hours) >25.0 Positive Perimenopausal women can display HCG levels of up to 20 mIU/mL 26 Sand Digger: [id number] 27 SEE RESULT BELOW Name: DEAN PENG : [address]: Donna Peguero MD Acct: [id number] Unit: [id number] AGE: 38 Location: [facility] Re11/17/18 SEX: F Status: REG REF SPEC: [id number] DEBBIE: 11/17/[address] [facility] [address]: Donna Peguero MD REQ: [id number] RECD: 11/17/18 STATUS: COMP _ SOURCE: THROAT SPDESC: ORDERED: Strep A Request COMMENTS: [id number] Procedure Result Reported Site Rapid Strep A Request Final 11/17/18 623 ML Specimen received for Rapid Strep A Molecular testing * ML - Main Lab . END OF REPORT DEPARTMENT OF PATHOLOGY, [address] [place] [address] Ty Guo M.D. Director [facility] # [id number] 28 [place]ger: [id number] Normal Range 180 to 914 Indeterminate Range 145 to 180 Deficient Range <145 30 Desirable: <150 Borderline High: 150-199 High: 200-499 Very High: >500 31 Desirable: <200 Borderline High: 200-239 High: >239 32 Low: <40 Desirable: 40-60 High: >60 33 Desirable: <100 Near Optimal: 100-129 Borderline High: 130-159 High: 160-189 Very High: >189 34 FASTING 10 HOUR 35 Desirable: <150 Borderline High: 150-199 High: 200-499 Very High: >500 36 Desirable: <200 Borderline High: 200-239 High: >239 37 Low: <40 Desirable: 40-60 High: >60 38 Desirable: <100 Near Optimal: 100-129 Borderline High: 130-159 High: 160-189 Very High: >189 39 [place]ger: [id number] 40 SEE RESULT BELOW Name: GINETTEDEAN L : [address]: Cydney Chen MD Acct: [id number] Unit: [id number] AGE: 37 Location: ED Re04/10/18 SEX: F Status: REG ER SPEC: [id number] DEBBIE: 04/10/18 [facility] [address]: Cydney Chen MD REQ: [id number] RECD: 04/10/18 STATUS: TOMASA COCHRAN DR: Tanvir Vizcarra MD _ SOURCE: THROAT SPDESC: ORDERED: Strep A Request Procedure Result Reported Site Rapid Strep A Request Final 04/10/18 906 ML Specimen received for Rapid Strep A Molecular testing * ML - Main Lab . END OF REPORT DEPARTMENT OF PATHOLOGY, [address] [place] [address] Ty Guo M.D. Director [facility] # [id number] 41 ADDITIONAL INFORMATION This test was developed and its performance characteristics determined by [facility] in a manner consistent with CLIA requirements. This test has not been cleared or approved by the U.S. Food and Drug Administration. Test Performed by: [facility] - [facility] [address] [place] [address] 42 Because ethnic data is not always readily [...] 15-29 5 Kidney failure <15 (or dialysis) 43 ADDITIONAL INFORMATION This test was developed and its performance characteristics determined by [facility] in a manner consistent with CLIA requirements. This test has not been cleared or approved by the U.S. Food and Drug Administration. Test Performed by: [facility] - [facility] [address] [place] [address] 44 Because ethnic data is not always readily [...] 15-29 5 Kidney failure <15 (or dialysis) 45 Therapeutic target for the treatment of diabetes Mellitus patients is <7% HBA1C, and in selective patients <6.0%.Please refer to [place] [employer] Diabetic care guidelines for further information. 46 SEE RESULT BELOW Name: DEAN PENG Lee : [address]: Tanvir Vizcarra MD Acct: [id number] Unit: [id number] AGE: 36 Location: [facility] Re06/18/17 SEX: F Status: REG REF SPEC: [id number] DEBBIE: 06/18/17-[address]: Tanvir Vizcarra MD REQ: [id number] RECD: 06/18/17 STATUS: COMP _ SOURCE: URINE SPDESC: ORDERED: Urine Culture COMMENTS: [id number] Urine Source: Random Procedure Result Reported Site Urine Culture Final 06/19/17- 1623 ML No growth of clinically significant organisms * ML - MAIN LAB ([facility]) . END OF REPORT * ML=Testing performed at Main Lab DEPARTMENT OF PATHOLOGY, [address] [place] [address] Ty Guo M.D. Director [facility] # [id number] 47 ADDITIONAL INFORMATION The thyroglobulin antibody testing method is an immunoenzymatic assay manufactured by [employer] and performed on the [employer] DXI 800. Values obtained from different assay methods or kits may be different and cannot be used interchangeably. The results cannot be interpreted as absolute evidence for the presence or absence of malignant disease. Test Performed by: [address] [address] 48 Because ethnic data is not always [...] 5 Kidney failure <15 (or dialysis) 49 SEE RESULT BELOW Name: DEAN PENG : [address]: Vance Garnett DO Acct: [id number] Unit: [id number] AGE: 36 Location: ED Re04/04/17 SEX: F Status: DEP ER SPEC: [id number] DEBBIE: 04/04/17-[address]: Vance Garnett DO REQ: [id number] RECD: 04/04/17 STATUS: TOMASA COCHRAN DR: [facility] Baldev Bonner MD _ SOURCE: URINE SPDESC: ORDERED: Urine Culture Procedure Result Reported Site Urine Culture Final 04/06/17- 0920 ML No growth of clinically significant organisms * ML - MAIN LAB ([facility]) . END OF REPORT * ML=Testing performed at Main Lab DEPARTMENT OF PATHOLOGY, [address] [place] [address] Ty Guo M.D. Director [facility] # [id number] [facility] Severe Sepsis and Septic Shock Management Bundle Measure requires all lactic acids initially measuring >2.0 mmol/L be repeated. 51 SEE RESULT BELOW Name: DEAN PENG : [address]: Scooter Copeland Acct: [id number] Unit: [id number] AGE: 36 Location: ED Re04/04/17 SEX: F Status: REG ER SPEC: [id number] DEBBIE: 04/04/[address]: Vance Garnett DO REQ: [id number] RECD: 04/04/17 STATUS: TOMASA COCHRAN DR: [facility] Baldev Bonner MD _ SOURCE: THROAT SPDESC: ORDERED: Strep A Request Procedure Result Reported Site Rapid Strep A Request Final 04/04/171046 ML Specimen received for Rapid Strep A Molecular testing * ML - MAIN LAB ([facility]) . END OF REPORT * ML=Testing performed at Main Lab DEPARTMENT OF PATHOLOGY, [address] [place] [address] Ty Guo M.D. Director [facility] # [id number] 52 99th percentile=0.04 ng/mL Troponin results at [facility] and [facility] are not interchangeable. 53 Sand Digger: [id number] 54 ADDITIONAL INFORMATION This test was developed and its performance characteristics determined by [facility] in a manner consistent with CLIA requirements. This test has not been cleared or approved by the U.S. Food and Drug Administration. Test Performed by: [facility] - [address] [address] Asian Studies Program Chair: Kenrick Hightower II, M.D., Ph.D. 55 REFERENCE VALUE Reference values depend on clinical use: Anticonvulsant: 5.0-20.0 mcg/mL Psychiatric: 2.0-8.0 mcg/mL ADDITIONAL INFORMATION This test was developed and its performance characteristics determined by [facility] in a manner consistent with CLIA requirements. This test has not been cleared or approved by the U.S. Food and Drug Administration. Test Performed by: [facility] - [address] [address] Asian Studies Program Chair: Kenrick Hightower II, M.D., Ph.D. 56 Because ethnic data is not always [...] 5 Kidney failure <15 (or dialysis) 57 [place] Severe Sepsis and Septic Shock Management Bundle Measure requires all lactic acids initially measuring >2.0 mmol/L be repeated. 58 <5.0 Negative 5.0 - 25.0 Indeterminate (Repeat testing recommended after 72 hours) >25.0 Positive Perimenopausal women can display HCG levels of up to 20 mIU/mL 59 >100 to <200 pg/mL: likely compensated congestive heart failure (CHF) 200 to 400 pg/mL: likely moderate CHF >400 pg/mL: likely moderate to severe CHF 60 Test Performed by: [place] [address] Asian Studies Program Chair: Kenrick Hightower II, M.D., Ph.D. 61 Because ethnic data is not always [...] 5 Kidney failure <15 (or dialysis) 62 Acute inflammation: >10.00 63 Reference Range and Interpretation: TnI (ng/mL) Interpretation Less Than 0.03 ng/mL Not supportive of diagnosis of [place] 0.03 - 0.50 ng/mL Indeterminate: suggest serial studies if clinically indicated. Greater than 0.5 ng/mL Consistent with diagnosis of [place] 64 Because ethnic data is not always readily [...] 15-29 5 Kidney failure <15 (or dialysis) 65 FASTING 10 HOUR 66 FASTING 10 HOUR 67 Desirable <150 Borderline high 150-199 High 200-499 Very High >500 68 Desirable <200 Borderline high 200-239 High >239 69 Low <40 Desirable: 40-60 High: >60 70 Desirable: <100 mg/dL Near Optimal: 100-129 mg/dL Borderline High: 130-159 mg/dL High: 160-189 mg/dL Very High: >189 mg/dL 71 FASTING 10 HOUR 72 SEE RESULT BELOW Name: EDAN PENG : [address]: Jeremiah Zendejas PILOT SUBMERSIBLE Acct: [id number] Unit: [id number] AGE: 35 Location: [facility] Re12/20/15 SEX: F Status: REG REF SPEC: [id number] DEBBIE: 12/20/15-[address]: Jeremiah Zendejas PILOT SUBMERSIBLE REQ: [id number] RECD: 12/20/15 STATUS: SOUT _ ORDERED: IMAGE [...] was evaluated with the assistance of the [employer] Test Imaging System. Due to cytologic findings at the operator cavity pump microscope, comprehensive manual rescreening by a Healthcare Recruiter may be required. The Pap Smear is [...] evaluated every 1-3 years. RUN DATE: 12/22/15 [facility] LAB LIVE PAGE 1 Patient: GINETTEDEAN L [id number] (Continued) CONTINUED ON NEXT PAGE * ML=Testing performed at [facility] DEPARTMENT OF PATHOLOGY, [address] [place] [address] Ty Guo M.D. Director [facility] # [id number] 73 The high-risk HPV types detected by the assay include: 16, 18, 31, 33, 35, 39, 45, 51, 52, 56, 58, 59, 66, and 68. 74 SEE RESULT BELOW Name: DEAN PENG Lee : [address]: Jeremiah Zendejas NP Acct: [id number] Unit: [id number] AGE: 34 Location: LAB Re08/14/15 SEX: F Status: REG REF SPEC: [id number] DEBBIE: 08/14/15-[address]: Jeremiah Zendejas NP REQ: [id number] RECD: 08/14/15 STATUS: COMP _ SOURCE: URINE SPDESC: ORDERED: Urine Culture Procedure Result Verified Site Urine Culture Final 08/16/15- 1127 ML Organism 1 NORMAL JUDE [place] Count 25-50,000 (Moderate) CFU/ML * ML - [facility] ([facility]) . END OF REPORT * ML=Testing performed at Main Lab DEPARTMENT OF PATHOLOGY, [address] [place] [address] Ty Guo M.D. Director [facility] # [id number] 75 Comment: f 76 Presumptive Positive 77 The urine specimen was tested at the listed cutoffs: Drug class test level (ng/mL) Amphetamines 500 Barbituates 200 Benzodiazepine metabolites 200 Cocaine metabolites 150 Cannabinoids 50 Opiates 300 Pcp 25 This is a screening procedure. Positive results are not confirmed. Specimen was received without chain of custody. Results should be used for medical purposes only. 78 Test Performed by: [place] [address] Asian Studies Program Chair: Kenrick Hightower II, M.D., Ph.D. 79 SEE RESULT BELOW Name: DEAN PENG : [address]: Justin Tom MD Acct: [id number] Unit: [id number] AGE: 34 Location: ED Re06/11/15 SEX: F Status: DEP ER SPEC: [id number] DEBBIE: 06/11/15 [facility] [address]: Justin Tom MD REQ: [id number] RECD: 06/11/15 STATUS: TOMASA COCHRAN DR: [facility] Jeremiah Zendejas PILOT SUBMERSIBLE _ SOURCE: URINE SPDESC: ORDERED: Urine Culture Procedure Result Verified Site Urine Culture Final 06/14/15- 938 ML Organism 1 NORMAL JUDE [place] Count >100,000 (Many) CFU/ML * ML - MAIN LAB ([facility]) . END OF REPORT * ML=Testing performed at Main Lab DEPARTMENT OF PATHOLOGY, [address] [place] [address] Ty Guo M.D. Director [facility] # [id number] 80 SEE RESULT BELOW Name: DEAN PENG : [address]: Jeremiah Zendejas PILOT SUBMERSIBLE Acct: [id number] Unit: [id number] AGE: 34 Location: [facility] Re05/16/15 SEX: F Status: REG REF SPEC: [id number] DEBBIE: 05/16/15-[address]: Jeremiah Zendejas NP REQ: [id number] RECD: 05/16/15 STATUS: COMP _ SOURCE: THROAT SPDESC: ORDERED: Throat Culture Procedure Result Verified Site Throat Culture Final 05/18/15- 0752 ML Organism 1 NORMAL JUDE Quantity 2+ Throat cultures are clinically indicated to detect the presence of group A strep, arcanobacterium and yeast. In certain cases, predominating organisms will be reported. * ML - MAIN LAB ([facility]) . END OF REPORT * ML=Testing performed at Main Lab DEPARTMENT OF PATHOLOGY, [facility] [employer] [place], [place] [address] Ty Guo M.D. Director [facility] # [id number] 81 N 82 Because ethnic data is not always [...] 5 Kidney failure <15 (or dialysis) 83 RUN DATE: 02/19/15 [facility] LAB LIVE PAGE 1 RUN TIME: 833 [facility] [employer] [place], [place] [address] Specimen Inquiry Name: DEAN PENG : [address]: Srinivas Boston MD Acct: [id number] Unit: [id number] AGE: 34 Location: ED Re02/16/15 SEX: F Status: DEP ER SPEC: [id number] DEBBIE: 02/16/[address] [facility] [address]: Hernando House DO REQ: [id number] RECD: 02/16/15 STATUS: TOMASA COCHRAN DR: [facility] Marito Turpin III, MD _ SOURCE: URINE SPDESC: ORDERED: Urine Culture Procedure Result Verified Site Urine Culture Final 02/19/15- 0834 ML Organism 1 ESCHERICHIA COLI [place] Count 25-50,000 (Moderate) CFU/ML Organism 2 NORMAL JUDE [place] Count 25-50,000 (Moderate) CFU/ML 1. ESCHERICHIA COLI [...] antibiotic reporting. * ML - MAIN LAB ([facility]) . END OF REPORT * ML=Testing performed at Main Lab DEPARTMENT OF PATHOLOGY, [address] [place] [address] Ty Guo M.D. Director [facility] # [id number] 84 Because ethnic data is not always [...] 5 Kidney failure <15 (or dialysis) 85 Test Performed by: [place] [address] Asian Studies Program Chair: Kenrick G. Morice, II, M.D., Ph.D. 86 Because ethnic data is not always readily [...] 15-29 5 Kidney failure <15 (or dialysis) 87 RUN DATE: 02/02/15 [facility] LAB LIVE PAGE 1 RUN TIME: [address] [place] [address] Specimen Inquiry Name: DEAN PENG Lee : [address]: Jeremiah Zendejas NP Acct: [id number] Unit: [id number] AGE: 34 Location: [facility] Re01/26/15 SEX: F Status: REG REF SPEC: [id number] DEBBIE: 01/26/15-[address] [facility] [address]: Tanvir Vizcarra MD REQ: [id number] RECD: 01/26/15 STATUS: SHAUN COCHRAN DR: Jeremiah Zendejas PILOT SUBMERSIBLE _ ORDERED: GOM METH STN, PASS STAIN, [...] performed at Main Lab DEPARTMENT OF PATHOLOGY, [address] [place] [address] Ty Guo M.D. Director [facility] # [id number] 88 RUN DATE: 02/02/15 [facility] LAB LIVE PAGE 1 RUN TIME: [address] [place] [address] Specimen Inquiry Name: DEAN PENG : [address]: Jeremiah Zendejas NP Acct: [id number] Unit: [id number] AGE: 34 Location: [facility] Re01/26/15 SEX: F Status: REG REF SPEC: DEBBIE: 01/26/15 [facility] [address]: Tanvir Vizcarra MD REQ: [id number] RECD: 01/26/15 STATUS: SHAUN COCHRAN DR: Jeremiah Zendejas PILOT SUBMERSIBLE _ ORDERED: GOM NESTOR STN, PASS STAIN, LEVEL IV GMS and [...] performed at Main Lab DEPARTMENT OF PATHOLOGY, [address] [place] [address] Ty Guo M.D. Director [facility] # [id number] RUN DATE: 02/02/15 [facility] LAB LIVE PAGE 2 RUN TIME: [address] [place] [address] Specimen Inquiry Patient: DEAN PENG Lee [id number] (Continued) MICROSCOPIC DESCRIPTION (Continued) Signed (signature on file) Griselda Garsia MD 0928 END OF REPORT * ML=Testing performed at [facility] DEPARTMENT OF PATHOLOGY, [address] [place] [address] Ty Guo M.D. Director [facility] # [id number] 89 Test Performed by: [place] [address] Asian Studies Program Chair: Kenrick Hightower II, M.D., Ph.D. 90 Test Performed by: [place] [address] Asian Studies Program Chair: Kurt Hinton M.D. 91 Test Performed by: [place] [address] Asian Studies Program Chair: Kurt Hinton M.D. 92 Interpretation: 51-80 ng/mL (increased risk of hypercalciuria) REFERENCE VALUE 25-HYDROXY D TOTAL (D2+D3) Optimum levels in the healthy population are 20-50, patients with bone disease may benefit from higher levels within this range. Test Performed by: [place] [address] Asian Studies Program Chair: Kurt Hinton M.D. 93 FASTING 10 HOUR 94 REFERENCE VALUE 25-HYDROXY D TOTAL (D2+D3) Optimum levels in the healthy population are 20-50, patients with bone disease may benefit from higher levels within this range. Test Performed by: [place] [address] Asian Studies Program Chair: Kurt Hinton M.D. 95 FASTING 10 HOUR 96 Normal Range 180 to 914 Indeterminate Range 145 to 180 Deficient Range <145 97 FASTING 10 HOUR 98 FASTING 10 HOUR 99 FASTING 10 HOUR 10 Because ethnic data is not always readily available, 0 this report includes an eGFR for both [...] 5 Kidney failure <15 (or dialysis) 10 Desirable <150 1 Borderline high 150-199 High 200-499 Very High >500 10 Desirable <200 2 Borderline high 200-239 High >239 10 Low <40 3 Desirable: 40-60 High: >60 10 Desirable <100 4 Near Optimal 100-129 Borderline high 130-159 High 160-189 Very High >189 10 Because ethnic data is not always readily available, 5 this report includes an eGFR for both [...] 5 Kidney failure <15 (or dialysis) 10 Test Performed by: [address] [place] [address] Asian Studies Program Chair: Luis Altamirano III, M.D. 10 Test Performed by: 7 [facility] - [address] [address] Asian Studies Program Chair: Luis Altamirano III, M.D. 10 Test Performed by: 8 [facility] - [address] [address] Asian Studies Program Chair: Luis Altamirano III, M.D. 10 RUN DATE: 05/30/13 [facility] LAB LIVE PAGE 1 9 RUN TIME: [address] [place] [id number] Specimen Inquiry Name: DEAN KEYES : [address]: Momo Diaz MD Acct: [id number] Unit: [id number] AGE: 32 Location: [facility] Re05/28/13 SEX: F Status: DEP ER SPEC: [id number] DEBBIE: 05/28/13-5 [facility] [address]: Momo Diaz MD REQ: [id number] RECD: 05/28/13 STATUS: TOMASA COCHRAN DR: Tanvir Vizcarra MD _ SOURCE: URINE SPDESC: ORDERED: Urine Culture QUERIES: Medent Number [id number] Procedure Result Verified Site Urine Culture Final 05/30/13- 1112 ML Organism 1 NORMAL JUDE [place] Count 25-50,000 (Moderate) CFU/ML END OF REPORT * ML=Testing performed at Main Lab DEPARTMENT OF PATHOLOGY, [address] [place] [address] Ty Guo M.D. Director [place] Permit #[id number] 11 Test Performed by: [address] [address] Asian Studies Program Chair: Luis Altamirano III, M.D. 11 This test detects intact HCG only and is indicated for the 1 early detection of . 11 RUN DATE: 10/24/12 [facility] LAB LIVE PAGE 1 2 RUN TIME: [address] [place] [address] Specimen Inquiry Name: DEAN KEYES : [address]: Charline BAINS,Lynette Davis Acct: [id number] Unit: [id number] AGE: 32 Location: [facility] Re10/22/12 SEX: F Status: DEP ER SPEC: [id number] DEBBIE: 10/22/[address] [facility] [address]: Charline BAINS,Lynette Davis REQ: [id number] RECD: 10/22/12 STATUS: TOMASA COCHRAN DR: GISSELL Carlin MD,Yudi Yadav MD,Clinton Blanco _ SOURCE: URINE SPDESC: ORDERED: Urine Culture Procedure Result Verified Site Urine Culture Final 10/24/12- 927 ML Organism 1 STREP GROUP B [place] Count 25-50,000 (Moderate) CFU/ML Organism 2 NORMAL JUDE [place] Count 75-100,000 (Many) CFU/ML Susceptibility testing of penicillins and other B-lactams approved by FDA for treatment of Streptococcus pyogenes (Group A Strep) and Streptococcus agalactiae (Group B Strep) is not necessary for clinical purposes and need not be done routinely, since as with vancomycin, resistant strains have not been recognized. (CLSI W301-X45;p.66) Positive isolates will be saved for one week. Please call the Microbiology Laboratory if further susceptibility testing is needed. END OF REPORT * ML=Testing performed at Main Lab DEPARTMENT OF PATHOLOGY, [facility] [employer] [place], [place] [address] Ty Guo M.D. Director [facility] Permit #[id number] 11 RUN DATE: 09/27/12 [facility] LAB LIVE PAGE 1 3 RUN TIME: [address] [place] [id number] Specimen Inquiry Name: DEAN KEYES : [address]: Lucas Arce MD Acct: [id number] Unit: [id number] AGE: 31 Location: [facility] Re09/25/12 SEX: F Status: DEP ER SPEC: [id number] DEBBIE: 09/25/[address]: Yazmin BAINS,Lucas REQ: [id number] RECD: 09/25/12 STATUS: TOMASA COCHRAN DR: GISSELL Carlin MD,[facility] _ SOURCE: THROAT SPDESC: ORDERED: Throat Beta Str Procedure Result Verified Site Throat Beta Strep Culture Final 09/27/12- 0802 ML Negative For Group A Beta Streptococcus END OF REPORT * ML=Testing performed at Main Lab DEPARTMENT OF PATHOLOGY, [address] [place] [address] Ty Guo M.D. Director [facility] Permit #[id number] 11 Test Performed by: [address] [address] Asian Studies Program Chair: Luis Altamirano III, M.D. R 11 Anion gap measurement may be of limited value in the 5 presence of any alkalosis, especially in a combined acid base disorder. . 11 A metabolite of Naproxen, O-desmethylnaproxen, has been 6 shown to interfere with the Jendrassik-[place] method for measuring total bilirubin. Samples from patients who have taken Naproxen have shown spurious elevation in total bilirubin levels. 11 Because ethnic data is not always readily available, 7 this report includes an eGFR for both [...] 5 Kidney failure <15 (or dialysis) 11 Test Performed by: [address] [address] Asian Studies Program Chair: Luis Altamirano III, M.D. Procedures Date Code Description Status 08/20/2017 15609 Polysomnography Sleep Staging 4+ Parameters Completed 07/03/2016 57557 EEG Monitoring & Video Recording Completed 07/02/2016 71579 EEG Monitoring & Video Recording Completed 07/01/2016 03658 EEG Monitoring & Video Recording Completed 06/30/2016 12186 EEG Monitoring & Video Recording Completed 06/29/2016 85804 EEG Monitoring & Video Recording Completed 06/28/2016 29783 EEG Monitoring & Video Recording Completed 01/15/2016 97098 Pulmonary Function><Bronchodil Completed 12/21/2015 12998 EKG Tracing & Interpretation Completed 12/20/2015 72608 EKG Tracing & Interpretation Completed 01/26/2015 60398 Biopsy Skin Lesion Single Completed 12/28/2014 62038 EEG Recording Awake & Asleep Completed 01/15/2013 58906 ECHO Stress Test Incl Perf Contiuous ekg Monitoring W/Phys Completed Superv 12/15/2012 14602 Cardiac Event Monitor Completed 12/11/2012 07916 ECHO Transthoracic, Real-Time 2D With Doppler And Color Completed Flow 11/18/2012 96974 EKG Tracing & Interpretation Completed 09/03/2012 27950 Holter Monitor Review (24 hr)dr review & interp only Completed 09/01/2012 38251 Holter Monitor Review (24 hr)dr review & interp only Completed 08/21/2012 29179 EEG Recording Awake & Asleep Completed Encounters Type Date Location Provider Dx Diagnosis Office Visit 04/07/2019 [facility] Jose Bell, R03.0 Elevated 11:00a Medicine - [facility] BARREL SCRAPER blood-pressure reading, w/o diagnosis of htn G43.009 Migraine w/o aura, not intractable, w/o status migrainosus R29.6 Repeated falls Office Visit 04/01/2019 [facility] Hernando G43.009 Migraine w/o 8:30a Neurologic Pablo Jurado aura, not [facility] intractable, w/o status migrainosus F44.5 Conversion disorder with seizures or convulsions Office Visit 03/10/2019 1:00p [facility] Darion Mena F44.5 Conversion [facility] PILOT SUBMERSIBLE disorder with seizures or convulsions G43.009 Migraine w/o aura, not intractable, w/o status migrainosus Office Visit 02/17/2019 11:40a [facility] Jose Bell, F44.5 [facility] BARREL SCRAPER disorder with seizures or convulsions F41.9 Anxiety disorder, unspecified J30.9 Allergic rhinitis, unspecified N20.0 Calculus of kidney Office Visit 01/19/2019 [facility] Medicine Tawny R42 [facility] Visit 01/15/2019 [facility] Darion G43.009 Migraine w/o 1:00p Clinic JANNIE Mena aura, not intractable, w/o status migrainosus F44.5 Conversion disorder with seizures or convulsions Office Visit 12/08/2018 11:00a [facility] Darion Knaake, G43.009 Migraine w/o aura, Neurologic PILOT SUBMERSIBLE not intractable, [facility] w/o status migrainosus F44.5 Conversion disorder with seizures or convulsions Office Visit 11/17/2018 3:00p [facility] Donna Peguero, J02.9 Acute pharyngitis, Medicine - MD unspecified Suite R H60.93 Unspecified otitis externa, bilateral Office Visit 10/21/2018 1:20p [facility] Andreaofimagaly Bell, J01.90 Acute sinusitis, Medicine - BARREL SCRAPER unspecified Suite R R05 Cough H66.92 Otitis media, unspecified, left ear Office Visit 08/19/2018 1:00p [facility] Jose Bell, J01.90 Acute sinusitis, Medicine - BARREL SCRAPER unspecified Suite R R05 Cough Z23 Encounter for immunization Office Visit 07/15/2018 1:20p [facility] Jose eBll, Z00.01 Encounter for Medicine - Suite BARREL SCRAPER general adult R medical exam w abnormal findings G47.33 Obstructive sleep apnea (adult) (pediatric) J45.30 Mild persistent asthma, uncomplicated L03.116 Cellulitis of left lower limb M25.562 Pain in left knee D50.9 Iron deficiency anemia, unspecified 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 D17.1 Benign lipomatous neoplasm of skin, subcu of trunk Z68.43 Body mass index (BMI) 50-59.9 , adult Office Visit 05/08/2018 1:40p [facility] Zsofia E03.9 Hypothyroidism, Medicine - Ray, BARREL SCRAPER unspecified Suite R D50.9 Iron deficiency anemia, unspecified K13.79 Other lesions of oral mucosa J06.9 Acute upper respiratory infection, unspecified Office Visit 04/22/2018 11:00a [facility] Andreaofia Ray, H81.399 Other peripheral Medicine - BARREL SCRAPER vertigo, Suite R unspecified ear G40.909 Epilepsy, unsp, not intractable, without status epilepticus E03.9 Hypothyroidism, unspecified E66.01 Morbid (severe) obesity due to excess calories N92.0 Excessive and frequent menstruation with regular cycle Z13.220 Encounter for screening for lipoid disorders Office Visit 03/10/2018 2:40p [facility] Tanvir H81.399 Other peripheral Medicine - Pachikara, M.D. vertigo, Suite R unspecified ear G40.909 Epilepsy, unsp, not intractable, without status epilepticus Office Visit 01/21/2018 9:40a [facility] Baldev Beck J45.40 Moderate persistent Elizabeth Bonner M.D.,FACP asthma, Suite R uncomplicated Z23 Encounter for immunization Office Visit 01/15/2018 [facility] Tanvir E03.9 Hypothyroidism, 1:40p Elizabeth Vizcarra M.D. unspecified Suite R K21.9 Gastro-esophageal reflux disease without esophagitis E66.01 Morbid (severe) obesity due to excess calories F32.9 Major depressive disorder, single episode, unspecified H81.399 Other peripheral vertigo, unspecified ear Office Visit 01/02/2018 Neurohospitalist Clinton Blanco F44.5 Conversion 3:45p Elle Yadav M.D. disorder with seizures or convulsions G43.909 Migraine, unsp, not intractable, without status migrainosus Office Visit 10/16/2017 [facility] Tanvir E03.9 Hypothyroidism, 1:40p Elizabeth Vizcarra M.D. unspecified Suite R F32.9 Major depressive disorder, single episode, unspecified [...] [facility] apnea (adult) [facility] (pediatric) E66.01 Morbid (severe) obesity due to excess calories Office Visit 07/21/2017 10:15a [facility] Diana Escalona, R06.83 Snoring [facility] J44.9 Chronic obstructive pulmonary disease, unspecified E66.01 Morbid (severe) obesity due to excess calories Office 07/18/2017 Neurohospital[facility] Clinton Blanco G43.909 Migraine, unsp, Visit 3:00p Clinic Leif, M.D. not intractable, without status migrainosus F44.5 Conversion disorder with seizures or convulsions Office Visit 07/17/2017 [facility] Tanvir E03.9 Hypothyroidism, 1:20p Elizabeth Vizcarra M.D. unspecified Suite R E66.01 Morbid (severe) obesity due to excess calories R73.9 Hyperglycemia, unspecified Office Visit 06/18/2017 1:20p [facility] Tanvir Vizcarra, R30.0 Dysuria Medicine - Pablo Ccmob Office Visit 05/15/2017 2:00p [facility] Tanvir Vizcarra, Z00.00 Encntr for Medicine - MAyden general adult Suite R medical exam w/o abnormal findings D17.9 Benign lipomatous neoplasm, unspecified G47.33 Obstructive sleep apnea (adult) (pediatric) F33.9 Major depressive disorder, recurrent, unspecified Office 04/18/2017 Neurohospitalist Clinton Blanco G43.909 Migraine, unsp, Visit 10:15a Clinic Pablo Yadav not intractable, without status migrainosus F44.5 Conversion disorder with seizures or convulsions Office Visit 04/08/2017 11:20a [facility] Tanvir Vizcarra, J06.9 Acute upper Medicine - Pablo respiratory Suite R infection, unspecified H81.393 Other peripheral vertigo, bilateral E03.9 Hypothyroidism, unspecified Office 04/02/2017 DoNotUse [facility] Marito Gruber K08.89 Other specified Visit 2:20p Precious Turpin, disorders of teeth M.DBryant and supporting structures Office 03/25/2017 [facility] Tanvir K05.00 Acute gingivitis, Visit 3:40p - Suite R Zackery, plaque induced M.DBryant Office 10/31/2016 [facility] Jeremiah J00 Acute Visit 2:20p - Suite R JANNIE Zendejas nasopharyngitis [common cold] Office 10/29/2016 [facility] Jeremiah F41.9 Anxiety disorder, Visit 11:00a - Suite R JANNIE Zendejas unspecified F33.9 Major depressive disorder, recurrent, unspecified F44.5 Conversion disorder with seizures or convulsions G43.909 Migraine, unsp, not intractable, without status migrainosus Z02.71 Encounter for disability determination Office 10/17/2016 Neurohospitalpatti Blanco G43.909 Migraine, unsp, Visit 10:00a Clinic Pablo Yadav not intractable, without status migrainosus F44.5 Conversion disorder with seizures or convulsions Office Visit 10/07/2016 10:40a [employer] Internal Jeremiah Barbadian, G43.909 Migraine , unsp, Medicine - PILOT SUBMERSIBLE not intractable, Suite R without status migrainosus F33.9 Major depressive disorder, [...] intractable, without status migrainosus Office Visit 05/10/2016 [facility] Clinton S. G43.009 Migraine w/o aura, 10:45a Neurologic Pablo Yadav not intractable, [facility] w/o status migrainosus G40.209 Local-rel symptc epi w cmplx prt seiz,not ntrct,w/o stat epi Office Visit 05/03/2016 1:40p [facility] Jeremiah Zendejas, M79.632 Pain in left Medicine - Suite PILOT SUBMERSIBLE forearm R S50.12xA Contusion of left forearm, initial encounter Office Visit 03/26/2016 3:00p [facility] Jeremiah Zendejas, H81.319 Aural vertigo, Medicine - PILOT SUBMERSIBLE unspecified ear Suite R J02.9 Acute pharyngitis, unspecified Office Visit 02/22/2016 [facility] Jeremiah Zendejas, F33.9 Major depressive 1:00p Medicine - PILOT SUBMERSIBLE disorder, recurrent, Suite R unspecified Office Visit 01/24/2016 [facility] Jeremiah Zendejas, G40.909 Epilepsy, unsp , not 3:40p Medicine - PILOT SUBMERSIBLE intractable, without Suite R status epilepticus Office Visit 01/01/2016 [facility] Jeremiah Zendejas, A09 Infectious 3:00p Medicine - PILOT SUBMERSIBLE gastroenteritis and Suite R colitis, unspecified R11.2 Nausea with vomiting, unspecified Office Visit 12/20/2015 2:40p [facility] Jeremiah Zendejas, Z01.419 Encntr for director of corporate sponsorships Medicine - Suite PILOT SUBMERSIBLE exam (general) R (routine) w/o abn findings G40.909 Epilepsy, unsp, [...] Otalgia, unspecified ear Office Visit 12/18/2015 1:00p [facility] Jeremiah Zendejas, G40.909 Epilepsy , unsp, Medicine - PILOT SUBMERSIBLE not intractable, Suite R without status epilepticus R05 Cough Office Visit 11/14/2015 3:00p [facility] Kady Samuel, G40.909 Epilepsy, unsp, [facility] MD not intractable, without status epilepticus F41.9 Anxiety disorder, unspecified Office Visit 10/30/2015 3:30p [facility] Jeremiah Zendejas, J01.90 Acute sinusitis, Medicine - PILOT SUBMERSIBLE unspecified Suite R H66.92 Otitis media, unspecified, left ear Office Visit 10/11/2015 10:00a [facility] Jeremiah Zendejas, J02.9 Acute pharyngitis, Medicine - PILOT SUBMERSIBLE unspecified Suite R 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 Office Visit 09/13/2015 4:00p [facility] Jeremiah Zendejas, K59.1 Functional Medicine - Suite PILOT SUBMERSIBLE diarrhea R G40.909 Epilepsy, unsp, not intractable, without status epilepticus Office Visit 08/14/2015 11:30a [facility] Jeremiah Zendejas, N92.6 Irregular Medicine - PILOT SUBMERSIBLE menstruation, Suite R unspecified R35.0 Frequency of micturition Office Visit 06/22/2015 2:30p [facility] Jeremiah Zendejas, 522.0 Pulpitis Medicine - PILOT SUBMERSIBLE Suite R Office Visit 06/13/2015 3:00p [facility] Jeremiah Zendejas, 345.90 Epilepsy Unspec Medicine - PILOT SUBMERSIBLE W/O Intractable Suite R 300.02 Anxiety Disorder Generalized 780.39 Convulsions Other 300.00 Anxiety State Unspec Office Visit 05/16/2015 10:30a [facility] Jeremiah Barbadian, 462 Pharyngitis Acute Medicine - PILOT SUBMERSIBLE Suite R Office Visit 05/09/2015 11:00a [facility] Jeremiah Barbadian, 380.13 Ear Infection Medicine - PILOT SUBMERSIBLE External Acute Suite R Other 462 Pharyngitis Acute 461.1 Sinusitis Acute Frontal 786.2 Cough 784.0 Headache 380.10 Otitis Externa Infective Unspec Office Visit 03/17/2015 11:00a [facility] Jeremiah Barbadian, 780.4 Dizziness & Medicine - Suite PILOT SUBMERSIBLE Giddiness R 300.11 Conversion Disorder Office Visit 03/06/2015 2:00p [facility] Jeremiah Zendejas, 381.4 Otitis Media Acute Medicine - PILOT SUBMERSIBLE Or Chronic Suite R Nonsuppurative 461.1 Sinusitis Acute Frontal 784.0 Headache 780.4 Dizziness & Giddiness Office Visit 03/02/2015 Terrell/Scooter Blanco 345.90 Epilepsy Unspec 1:45p Neurologic Serv Of Pablo Yadav W/O Intractable [employer] 300.11 Conversion Disorder Office Visit 02/14/2015 11:30a [facility] Jeremiah Barbadian, 780.4 Dizziness & Medicine - Suite PILOT SUBMERSIBLE Giddiness R Office Visit 02/02/2015 3:00p [facility] Jeremiah Barbadian, 698.9 Pruritic Disorder Medicine - Suite PILOT SUBMERSIBLE Unspec R 702.8 Dermatoses Other Spec Office Visit 01/16/2015 2:30p [facility] Jeremiah Barbadian, 698.8 Pruritic Medicine - Suite PILOT SUBMERSIBLE Conditions Spec R Other 300.02 Anxiety Disorder Generalized 698.9 Pruritic Disorder Unspec Office Visit 01/13/2015 1:30p [facility] Jeremiah Barbadian, 698.8 Pruritic Medicine - Suite PILOT SUBMERSIBLE Conditions Spec R Other 493.10 Asthma Intrinsic Unspecified 698.9 Pruritic Disorder Unspec Office Visit 12/15/2014 Leonore/Scooter Blanco 345.90 Epilepsy Unspec 2:30p Neurologic Serv Of Pablo Yadav W/O Intractable [employer] Office Visit 12/07/2014 [facility] Jeremiah Zendejas, 345.90 Epilepsy Unspec 2:00p - Ccmob PILOT SUBMERSIBLE W/O Intractable 293.83 Mood Disorder In Conditions Classified Elsewhere 372.00 Conjunctivitis Acute Unspec 268.9 Vitamin D Deficiency Unspec V77.1 Screening Diabetes Mellitus 296.90 Episodic Mood Disorder NOS Office Visit 10/11/2014 1:30p [facility] Medicine - Jeremiah Zendejas, PILOT SUBMERSIBLE 133.0 Scabies Ccmob 698.8 Pruritic Conditions Spec Other 690.18 Seborrheic Dermatitis Other Office Visit 09/26/2014 11:30a [facility] Jeremiah Zendejas, 461.9 Sinusitis Acute Medicine - Ccmob PILOT SUBMERSIBLE Unspec 786.2 Cough 311 Depressive Disorder Not Elsewhere Spec Office Visit 08/30/2014 1:30p [facility] Jeremiah Barbadian, 311 Depressive Medicine - Ccmob PILOT SUBMERSIBLE Disorder Not Elsewhere Spec 786.2 Cough Office Visit 08/22/2014 11:30a [facility] Jeremiah Zendejas, 466.0 Bronchitis Acute Medicine - Ccmob PILOT SUBMERSIBLE 311 Depressive Disorder Not Elsewhere Spec 280.9 Iron Deficiency Anemia Unspec Office Visit 08/18/2014 Terrell/Scooter Blanco 345.90 Epilepsy Unspec 9:30a Neurologic Serv Of Pablo Yadav W/O Intractable [employer] Office Visit 08/09/2014 [facility] Dinorah 780.79 Malaise And 10:00a - Markus ZhangD. Fatigue Other 300.02 Anxiety Disorder Generalized 345.90 Epilepsy Unspec W/O Intractable 278.00 Obesity Unspec V17.49 Family HX Of Other Cardiovascular Diseases 268.9 Vitamin D Deficiency Unspec 493.10 Asthma Intrinsic Unspecified Office Visit 06/16/2013 3:30p [facility] Aleks Blanco 345.90 Epilepsy Unspec [facility] Pablo Yadav W/O Intractable 300.02 Anxiety Disorder Generalized Office Visit 02/25/2013 11:50a [facility] Yudi 345.91 Epilepsy Unspec W/ Elizabeth Carlin M.D. Intractable Ccmob 493.90 Asthma Unspec W/O Status Asthmaticus 300.00 Anxiety State Unspec Office Visit 02/17/2013 11:15a [facility] Aleks Blanco 345.90 Epilepsy Unspec [facility] Pablo Yadav W/O Intractable Office Visit 02/11/2013 1:00p [facility] Dinorah Lorenzo 345.91 Epilepsy Unspec Elizabeth Mejia M.D. W/ Intractable Office Visit 11/18/2012 9:30a [facility] Fidel Muhammad 786.50 Pain Chest Unspec Of [facility] Pablo Goodwin, [facility], FASNC 785.1 Palpitations Office Visit 11/17/2012 [facility] Clinton Blanco 345.40 Local-Related 9:30a Aleks Yadav M.D. Epilepsy W/O [facility] Mention Of Intractable Epilepsy 346.10 Migraine Common W/O Intractable W/O Status Migrainosus Office Visit 10/27/2012 11:00a [facility] Tanvir 780.4 Dizziness & Elizabeth Vizcarra M.D. Giddiness Ccmob Office Visit 09/28/2012 11:20a [facility] Goltry 493.90 Asthma Unspec W/ O Elizabeth Vizcarra M.D. Status Ccmob Asthmaticus 466.0 Bronchitis Acute Office Visit 09/07/2012 [facility] Goltry 346.92 Migraine 2:40p Elizabeth Vizcarra M.D. Unspecified, W/Out Mention Intractable Migraine Office Visit 09/01/2012 Scooter Blanco 345.91 Epilepsy Unspec W/ 11:00a Aleks Yadav M.D. Intractable [facility] Office Visit 08/31/2012 [facility] Goltry 427.89 Cardiac 11:40a Elizabeth Vizcarra M.D. Dysrhythmia Other 346.92 Migraine Unspecified, W/Out Mention Intractable Migraine Office Visit 08/20/2012 12:10p [facility] Yudi Carlin, 300.00 Anxiety State Medicine Alan Mejia M.D. Unspec 493.90 Asthma Unspec W/O Status Asthmaticus 401.9 Hypertension Unspec V06.1 Qlbkrvgvxr-Firsgrw-Ozzzzaph Combined (DTaP) Office Visit 07/20/2012 [facility] Yudi V04.81 Need For Prophylactic 11:50a Medicine - Pablo Carlin Vaccination & Lauraob Inoculation/Influenza 345.90 Epilepsy Unspec W/O Intractable 300.00 Anxiety State Unspec 493.90 Asthma Unspec W/O Status Asthmaticus 401.9 Hypertension Unspec Plan of Treatment Future Appointment(s):05/26/2019 1:00 pm - Darion Mena, JANNIE at [facility]04/27/2019 - Darion Mena, NPR03.0 Elevated blood- pressure reading, without diagnosis of ejwuifH88.009 Migraine without aura, not intractable, without status migraNew Medication:Aimovig 70 mg/ml - inject sq once a monthFollow up:ONE MONTH with EricR29.6 Repeated yevgsP14.899 Other r developer (current) drug therapy
--- OUTSIDE RECORDS SUMMARY | 2019-05-01 12:30 | XMS REPORT | Continuity of Care Document ---
:1980 External Reference #:[id number] Author Name Francisco Jennifer Care Team Providers Name Role Phone Donna Peguero M.D. Primary Care Physician Unavailable Payers Date Identification Numbers Payment Provider Subscriber Effective: Policy Number: [id number] [place] Dean Peng 2012 Medicaid PayID: [id number] [address] [address] [place] [address] Advance Directives Type Date Description Status Comment [...] Use Denies Drug Use Smoking Status Reviewed: 04/07/19 Patient is a former smoker Allergies, Adverse [...] Medications SIG Qnty Indications Ordering Date Provider Blood Pressure use daily to 1units R03.0 Jose Bell, 04/07/2019 Monitor Auto monitor bp daily [employer] Inflate Misc Walker Swivel use with 1units R29.6 Jose Bell, 04/07/2019 Wheels/5 Adjustment ambulation [employer] Holes/3" 3" Misc Ketorolac take one tab by 20tabs Jose Bell, 04/01/2019 Tromethamine mouth every 4-6 [employer] 10mg hours, as needed Tablets for severe migraine for five days. max 4 doses a day. take with food. Doxepin HCL Take one cap by 30caps G43.009 Clinton Blanco 03/10/2019 50mg mouth at night. Pablo Yadav Capsules Zyrtec Allergy take one tablet by 30caps J30.9 Jose Bell, 02/17/2019 10mg mouth in the [employer] Capsules evening Lamotrigine take 2 tab by 90tabs Clinton Blanco 01/15/2019 200mg mouth in the Pablo Yadav Tablets morning and take 2 tabs at bedtime. Trueplus Lancets 30G use to test 100units Jose Bell, 12/31/2018 Ultra Thin [employer] 30G Misc Fluticasone use 2 sprays in 16units J01.90 Jose Bell, 10/21/2018 Propionate each nostril one [employer] 50mcg/Act time a day Suspension Robitussin 12 Hour 5 milliliters by 89ml R05 Donna Peguero MD 10/21/2018 Cough Relief mouth twice a day 30mg/5ML as needed Suer Nasal Clayton 12 Hour 2 sprays each 30ml J01.90 Jose Bell, 10/21/2018 nostril 2x daily [employer] 0.05% Solution as needed for congestion True Metrix Go Blood use daily as 1units Jose Moorchok, 08/17/2018 Glucose Meter directed last [employer] visit: 08/19/18 w/Device Kit True Focus Self test blood twice 100units Tawny Ferrari MD 08/17/2018 Monitoring Blood daily Glucose Test Strips Strips Ventolin HFA 2 puffs by mouth 8gm J45.30 Jose Bell, 07/15/2018 four times a day [employer] 108(90Base) mcg/Act as needed Aerosol Guards use mouth guard at 1units K13.79 Jose Bell, 05/08/2018 [facility] [place] [employer] Citalopram take one tablet by 30tabs Donna Peguero MD 03/12/2018 Hydrobromide mouth every day 40mg Tablets Ibuprofen take one tablet 90tabs Jose Bell, 06/24/2016 800mg three times daily [employer] Tablets as needed. Omeprazole take one capsule 30caps K21.9 Donna Peguero MD 09/15/2015 20mg by mouth every day Capsules DR PETERSON Cetirizine HCL 1 by mouth every 30tabs Donna Peguero MD 03/31/2015 day 10mg Tablets Ferrous Gluconate take one tablet by 180tabs D50.9 Jose Bell, 2013 mouth twice daily [employer] 324(38Fe) mg Tablets Albuterol Sulfate inhale the 100units Baldev Beck 11/02/2012 contents of one Pablo Bonner,FACP (2.5mg/3ML) 0.083% vial via nebulizer Nebulizer every 4 to 6 hours as needed Levothyroxine Sodium 1 by mouth every 90tabs E03.9 Donna Peguero MD day 75mcg Tablets History Medications Hydroxyzine HCL Take one tab by 60takala Blanco 04/01/2019 - mouth twice a Pablo Yadav 04/07/2019 50mg Tablets day, as needed Lamotrigine Starting 03/26, 14tabs Clinton Blanco 03/11/2019 - 100mg take one tab by Pablo Yadav 04/07/2019 Tablets mouth with 200 mg dose in the morning (total of 300 mg in the morning) for two weeks. Lamotrigine take one tab by 7tabs Clinton Blanco 03/10/2019 - 100mg mouth with 200 Pablo [...] Jose Bell, 12/31/2018 - 30-600mg a day [facility] 01/14/2019 Tablets ER 12HR Doxepin HCL 4 capsules every 120caps G43.909 Clinton SBryant 12/10/2018 - 10mg night at bedtime Pablo Yadav 03/10/2019 Capsules Freestyle Lancets 2 times daily 100units Jose Bell, 12/09/2018 - and as needed [facility] 12/30/2018 Misc Neomycin/Polymyxin/ 2 drops in 10ml H60.93 Donna Peguero MD 11/17/2018 - Hydrocortisone affected ear 02/17/2019 (Otic) twice a day for 3.5-38113-6 5 days as needed Solution Doxycycline take 1 tab po 20caps Jose Bell, 10/22/2018 - Monohydrate bid for 10 days [employer] 11/17/2018 100mg Capsules Cefuroxime Axetil 1 tab by mouth 14tabs H66.92 Jose Bell, 10/21/2018 - twice a day for [facility] 10/22/2018 250mg Tablets 7 days J01.90 Benzonatate take 1 tab by 30caps R05 Jose Bell, 08/19/2018 - 100mg mouth three [facility] 01/19/2019 Capsules times a day as needed for cough Doxycycline 1 tab by mouth 14tabs J01.90 Jose Bell, 08/19/2018 - Monohydrate twice a day for [employer] 11/17/2018 100mg 7 days Tablets Breo Ellipta inhale 1 puff by 30units Comfort Oliver, 08/11/2018 - mouth once daily M.D. 11/17/2018 100-25mcg/Inh Aerosol Advair Diskus inhale 1 dose by 60units Tanvir Vizcarra, 07/21/2018 - mouth twice a M.D. 08/11/2018 100-50mcg/Dose day Aerosol Flovent HFA 2 act twice a 10.600gm J45.30 Jose Bell, 07/15/2018 - 44mcg/Act day daily for 2 [employer] 07/21/2018 Aerosol week rinse after use Cephalexin take 1 tab three 30caps L03.116 Jose Bell, 07/15/2018 - 500mg times a day for [employer] 07/15/2018 Capsules 10 days Sulfamethoxazole/Tri 1 tab po bid x 7 14tabs L03.116 Jose Bell, 2017 - methoprim DS days [facility] 08/19/2018 800-160mg Tablets Vitamin C take one tablet 60tabs D50.9 Donna Peguero MD 05/08/2018 - 500mg by mouth twice a 02/17/2019 Tablets day Meclizine HCL take /2-1 90tabs H81.399 Jose Bell, 03/10/2018 - 25mg tablet by mouth [facility] 01/19/2019 Tablets three times a day as needed Calcium take one tablet 180tabs J00 Donna Peguero MD 02/18/2018 - Carbonate-Vitamin D by mouth twice a 01/19/2019 day with food [id number] Tablets Arnuity Ellipta 1 puff inhaled 30units Baldev Beck 01/21/2018 - every day Pablo Bonner,[facility] 11/17/2018 100mcg/Act Aerosol Prednisone 4 tabs every day 20tabs Baldev Beck 01/21/2018 - 10mg for 2 days, then Pablo Bonner,[facility] 01/29/2018 Tablets reduce by 1 tab every 2 days until finished Calcium take one tablet 180tabs Tanvir Vizcarra, 10/20/2017 - Carbonate-Vitamin D by mouth twice a M.D. 01/01/2018 day with food [id number] Tablets Doxepin HCL 4 capsules every 120caps G43.909 Hernando Jurado, 09/12/2017 - 10mg night at bedtime M.DBryant 12/08/2018 Capsules Doxycycline Hyclate 1 by mouth [...] qhs for 1 wk then 4 qhs Levothyroxine Sodium take one tablet 45tabs E03.9 Tanvir Vizcarra, 2016 - by mouth every M.D. 01/21/2018 25mcg Tablets morning Meclizine HCL 1-2 tab two 60tabs H81.393 Tanvir Vizcarra, 04/08/2017 - 12.5mg times a day M.D. 07/15/2018 Tablets Azithromycin 2 tab today and 6tabs J06.9 Tanvir Vizcarra, 04/08/2017 - 250mg then 1tab daily M.D. 04/10/2017 Tablets Lidocaine Viscous swish and spit 200ml K08.89 [...] - 4mg every 8 hours as Pablo Bonner,FACJing 07/15/2018 Tablets needed for nausea Clindamycin HCL 1 tabs by mouth 40caps K05.00 Tanvir Vizcarra, 2016 - 300mg every 6h M.D. 04/10/2017 Capsules Vicodin 1 tab every 12 20tabs K05.00 Tanvir Vizcarra, 03/25/2017 - 5-300mg hours M.D. 05/21/2017 Tablets Citalopram Take One Tablet 30tabs Tanvir Zavaleta, 03/17/2017 - Hydrobromide By Mouth Every M.D. 03/12/2018 10mg Day Along With Tablets 20 MG Tablet To Equal Total Daily Dose Of 30 MG Calcium 600+D 1 tab by mouth 180tabs J00 Tanvir Zavaleta, 10/31/2016 - twice a day take M.D. 02/18/2018 [id number] w/ meal Tablets Topiramate 1 po qam and 1 75tabs G43.909 Clinton Yadav, 10/17/2016 - 100mg 1/2 qhs M.D. 03/18/2017 Tablets Robitussin 12 Hour 1-2 teaspoon at 118ml J00 Tanvir Lehmanderrell, 10/10/2016 - Cough Relief night as needed [...] 03/13/2016 - four times a day Pablo Bonner,FACP 11/17/2018 108(90Base) mcg/Act as needed Aerosol Escitalopram [...] mouth 8caps Jeremiah Zendejas NP 12/25/2015 - [id number] once a week x's 02/22/2016 Capsules 8 weeks Nystop apply topically 1units B37.2 Jeremiah Zendejas NP 12/20/2015 - 427025Olue/GM to rash twice a 02/22/2016 Powder day until rash resolved Ipratropium Gunlock instill 2 sprays 1units J01.90 Jeremiah Zendejas NP 2014 - in each nostril 11/13/2015 0.03% Solution three times a day as needed nasal congestion Cefdinir 1 capsule twice 20caps J01.90 Jeremiah Zendejas NP 10/30/2015 - 300mg a day x's 10 11/09/2015 Capsules days Penicillin V 1 tablet by 20tabs Jeremiah Zendejas NP 10/12/2015 - Potassium mouth bid x10 10/22/2015 500mg days Tablets Clindamycin HCL 1 capsule by 30caps J02.9 Jeremiah Zendejas NP 10/11/2015 - 300mg mouth three 10/12/2015 Capsules times a day x's 10 days Cepacol Sore Throat J02.9 Jeremiah Zendejas NP 10/11/2015 - 10/16/2015 5.4mg Lozenges Freestyle Lancets test bs once 100units Zsofia Ray, 09/28/2015 - daily and as [facility] 08/16/2018 [facility] needed Freestyle System 250.02 Jeremiah Zendejas NP 09/28/2015 - Kit 08/16/2018 Freestyle Test test strips use 100units Zsofia Ray, 09/28/2015 - daily as [facility] 08/16/2018 Strips directed Topiramate take 3 by mouth 90caps G43.909 Clinton Yadav, 09/10/2015 - 25mg Caps at bedtime M.D. 10/17/2016 Sprinkle Naproxen 1 tab by mouth 14tabs Jeremiah Zendejas NP 08/24/2015 - 500mg every 12 hours. 11/13/2015 Tablets prn Benzonatate 1 tab by mouth 30caps R05 Andreaofimagaly Bell, 08/22/2015 - 100mg three times a [employer] 07/15/2018 Capsules day as needed J00 Walling 1 tab every 6 6tabs Jeremiah Zendejas, 07/05/2015 - 7.5-325mg Tablets hours up to twice [employer] 07/08/2015 a day x3 days Walling 1 tab every 6 30tabs 522.0 Jeremiah Zendejas, 06/22/2015 - 7.5-325mg Tablets hours prn pain [employer]SE 07/05/2015 Nystatin swish and swallow 225ml Jeremiah Zendejas, 05/26/2015 - [id number]/ML 5ml four times a [employer]SE 06/05/2015 Suspension day x's 10 days Clindamycin HCL 1 capsule by 30caps 462 Jeremiah Zendejas, 05/16/2015 - 300mg mouth three times [employer]SE 05/26/2015 Capsules a day x's 10 days Medrol (Tj) take as 1tabs 462 Jeremiah Zendejas, 05/16/2015 - 4mg Tablets prescribed [employer]SE 05/26/2015 Amoxicillin take one tablet 20tabs 380.13 Jeremiah Zendejas, 05/09/2015 - 875mg Tablets by mouth twice a [employer] 05/19/2015 day x's 10 days Cheratussin ac 1-2 teaspoon by 120ml 786.2 Jeremiah Zendejas, 05/09/2015 - mouth every 4 to PHYSICIAN [employer] NURSE 05/19/2015 100-10mg/5ML Syrup 6 hours as needed cough Amoxicillin take one tablet 14tabs 381.4 Jeremiah Zendejas, 03/06/2015 - 875mg Tablets by mouth twice a [employer]SE 03/17/2015 day x's 7 days Darlyn Allergy 1 tab by mouth 30tabs 461.1 Jeremiah Zendejas, 03/06/2015 - 180mg daily x's 4-6 [employer]SE 03/17/2015 Tablets weeks Zyrtec Allergy 1 by mouth every 30caps Tanvir 02/10/2015 - 10mg day Pachikara, 02/14/2015 Capsules M.D. Prednisone 5 pillsx's2days, 30tabs 698.9 Jeremiah Zendejas, 02/02/2015 - 10mg Tablets 4pillsx's2days, [employer]SE 02/12/2015 3pillsx's2days, 2pillsx's2days,1p illx's2days,then stop Darlyn Allergy 2 tab by mouth 60tabs 698.9 Tanvir 02/02/2015 - 180mg daily Pachikara, 02/10/2015 Tablets M.D. Ranitidine HCL 1 capsule po bid 60caps 698.9 Jeremiah Zendejas, 02/02/2015 - 150mg [employer] 03/06/2015 Capsules Hydroxyzine HCL 2 tab by mouth 698.8 Jeremiah Zendejas, 02/02/2015 - 25mg every 6 hours as PHYS[employer] NURSE 02/02/2015 Tablets needed for itching Hydroxyzine HCL 2 tab by mouth 56tabs 698.8 Jeremiah Zendejas 01/26/2015 - 25mg every 6 hours as [employer] N[employer]SE 02/02/2015 Tablets needed for itching Triamcinolone apply topically 30G Jeremiah Zendejas 01/23/2015 - Acetonide twice a day to [employer]SE 01/26/2015 0.1% Cream affected sites Lorazepam 1 by mouth tid as 15tabs Claudia 01/16/2015 - 0.5mg Tablets needed DO Jean Claude 01/16/2015 Lorazepam 1 by mouth tid as 15tabs Jeremiah Zendejas 01/16/2015 - 0.5mg Tablets needed [employer]SE 01/16/2015 Alprazolam 1/2-1 tab by 60tabs Jeremiah Zendejas 01/16/2015 - 0.5mg Tablets mouth twice a day [employer]SE 03/17/2015 as needed Hydrocortisone Plus apply tid daily 1tube Jeremiah Zendejas 01/16/2015 - 1% until rash [employer] N[employer]SE 01/26/2015 Cream resolved Tudorza Pressair 1 inhalation po 1units 493.10 Jeremiah Zendejas, 01/13/2015 - qd [employer]SE 02/02/2015 400mcg/Act Aerosol Ranitidine 150 Maximum 1 tablet po qd 30tabs 698.8 Jeremiah Zendejas, 2014 - Strength until hives [employer]SE 02/02/2015 150mg Tablets resolve Hydroxyzine HCL 2 tab by mouth 56tabs 698.8 Jeremiah Zendejas 01/13/2015 - 25mg every 6 hours as [employer] N[employer]SE 01/16/2015 Tablets needed for itching Alprazolam 1 PO daily 20tabs Jeremiah Zendejas 01/05/2015 - 0.5mg Tablets [employer]SE 01/16/2015 Dispers Vitamin D 1 by mouth every 30tabs J00 Jeremiah Zendejas, 12/11/2014 - 1000Unit day PH[employer] N[employer]SE 10/31/2016 Tablets Polytrim 1 drop left eye 1units 372.00 Jeremiah Zendejas, 12/07/2014 - every four hours PH[employer] N[employer]SE 12/12/2014 30015-7.1Unit/ML-% while awake x's 5 Solution days Hydroxyzine HCL 2 tab by mouth 56tabs 698.8 Jeremiah Zendejas, 10/11/2014 - 25mg every 6 hours as PH[employer]ICE NURSE 01/13/2015 Tablets needed for itching Permethrin apply from neck 1units 133.0 Jeremiah Zendejas, 10/11/2014 - 5% Cream to toes topically [employer]ICE NURSE 12/07/2014 leave on 8-14 hours then bath off. repeat in 7 days. Clarithromycin 1 tab po bid x's 14tabs Jeremiah Zendejas, 09/29/2014 - 500mg 7 days PHYS[employer] NURSE 10/06/2014 Tablets Afrin 12 Hour 2-3 sprays both 1units Jeremiah Zendejas, 09/29/2014 - 0.05% nares every 12 PHYSICIAN OFFICE NURSE 12/07/2014 Solution hours as needed rhinorhea Amoxicillin/Clavulanat 1 tablet by mouth 20tabs 461.9 Jeremiah Zendejas, 2013 - e Potassium twice a day x's PHYSICIAN OFFICE NURSE 09/29/2014 875-125mg 10 days Tablets Cheratussin ac 1-2 teaspoon by 120ml 786.2 Jeremiah Zendejas, 09/26/2014 - mouth every 4 to PHYSICIAN OFFICE NURSE 10/01/2014 100-10mg/5ML Syrup 6 hours as needed cough Citalopram Take One Tablet 30tabs F33.9 Binger 08/30/2014 - Hydrobromide By Mouth Every Pachikara, 03/12/2018 20mg Tablets Day Along With 10 M.D. MG Tablet To Equal Total Daily Dose Of 30 MG Citalopram 1 tablet po daily 30tabs 311 Jeremiah Zendejas, 08/22/2014 - Hydrobromide PHYSICIAN OFFICE NURSE 08/30/2014 40mg Tablets Prednisone 2 by mouth every 10tabs Unknown 08/18/2014 - 20mg Tablets day 09/26/2014 Cheratussin ac 1-2 tsp by mouth 236ml Jeremiah Zendejas, 08/18/2014 - every 4 to 6 PHYSICIAN OFFICE NURSE 09/26/2014 100-10mg/5ML Syrup hours as needed cough [...] Zendejas, 02/25/2013 - 160-4.5mcg/Act twice a day PHYSICIAN OFFICE NURSE 05/09/2015 Aerosol Keppra 1 po at bedtime 30tabs 345.91 Clinton Blanco 02/11/2013 - 500mg Tablets Pablo Yadav 06/16/2013 Spiriva Handihaler 1 inhalation po 30caps 780.4 Binger 10/27/2012 - 18mcg qam [facility], 02/25/2013 Capsules M.D. Prednisone 5tabx 2days,4 30tabs 493.90 Binger 09/28/2012 - 10mg Tablets [id number] [facility], 10/27/2012 [id number],2tabx2 M.D. days,1tabxday. Topamax 1 tab PO hs 30tabs 346.92 Binger 09/07/2012 - 25mg Tablets Pachikara, 09/28/2012 M.D. Lamotrigine 3 by mouth every 210tabs Clinton Blanco 07/21/2012 - 100mg Tablets morning and 4 Pablo Yadav 01/15/2019 every night at bedtime Symbicort 2 puff inhaled 1units 493.90 [facility] 07/20/2012 - 80-4.5mcg/Act bid Pablo Carlin 02/25/2013 Aerosol Sertraline HCL Take One Tablet 90tabs [facility] 07/20/2012 - 50mg By Mouth One Time Pablo Carlin 06/16/2013 Tablets Daily Citalopram 1 by mouth every 30tabs Unknown - Hydrobromide day 08/22/2014 20mg Tablets Oxymetazoline HCL Unknown - 0.05% 10/11/2014 Solution Hydroxyzine HCL 1 po bid if 30tabs Jeremiah Zendejas, - 50mg needed PHYSICIAN OFFICE NURSE 11/13/2015 Tablets Lorazepam 1 po q 8 to 12 Unknown - 1mg Tablets hours as needed 06/13/2015 Citalopram Unknown - Hydrobromide 03/02/2015 20mg Tablets Acetaminophen 2 tablets every 240tabs Jeremiah Zendejas, - 500mg 6-8 hours as PHYSICIAN OFFICE NURSE 10/29/2016 Tablets needed for pain Dulera 2 puff twice a Unknown - 100-5mcg/Act day 06/13/2015 Aerosol Zithromax one by mouth one Unknown - 500mg Tablets per day 08/14/2015 Flonase Allergy Relief 2 intranasal 9.900ml Binger - twice a day Pachikara, 11/17/2018 50mcg/Act Suspension M.D. Keflex 1 by mouth three Unknown - 500mg Capsules times a day 10/11/2015 Robitussin Chest 1-2 teaspoon at 118ml Baldev Beck - Congestion night as needed Kailey, 10/10/2016 100mg/5ML M.D.,FACP Syrup Ra Motion Sickness take 1/2 tab by 30tabs Jeremiah Zendejas, - Relief mouth three times PHYSICIAN OFFICE NURSE 04/08/2017 25mg Tablets daily if needed for [...] Blanco - 25mg Tablets night at at LeifPablo turcios 03/10/2019 bedtime with 2(200 mg tabs) total 450 mg at at bedtime Lamotrigine 1 po tid 60tabs Unknown - 200mg Tablets 07/21/2012 Loratadine 1 po qd as needed 30tabs Dinorah Bj, - 10mg Tablets Pablo 08/09/2014 Nadolol 1/2 [...] every 30caps Jeremiah Zendejas, - 10mg day PHYSICIAN OFFICE NURSE 02/02/2015 Capsules Phenazopyridine HCL 1 by mouth [...] 90caps Jeremiah Zendejas, - 18mcg mouth every PHYSICIAN OFFICE NURSE 01/13/2015 Capsules morning Proair HFA 2 puffs by mouth 1units Unknown - 108(90Base) every 4 hours as 10/11/2014 mcg/Act Aerosol needed Vitamin D3 Maximum 1 by mouth every 8caps Unknown - Strength week 12/11/2014 [id number] Capsules Lorazepam 1 by mouth tid as 15tabs Unknown - 0.5mg Tablets needed 10/11/2014 Cetirizine HCL 1 by mouth every Unknown - 10mg day 08/17/2014 Tablets Omeprazole 1 by mouth every 30caps Jeremiah Zendejas, - 40mg Capsules day PHYSICIAN OFFICE NURSE 02/02/2015 Immunizations CPT Code Status Date Vaccine Reaction Lot # [id number] Given 08/19/2018 Influenza Virus Vaccine, [id number] Quadrivalent, Split, Preservative Free 53963 Given 07/28/2018 Influenza Virus Vaccine, Quadrivalent, Split, Preservative Free 84813 Given 07/28/2018 Influenza Virus Vaccine, Quadrivalent, Split, Preservative Free 71000 Given 01/21/2018 Influenza Virus Vaccine, [id number] Quadrivalent, Split, Preservative Free 75645 Given 10/16/2017 Pneumonia Vaccine no reaction, pt [id number] tolerated well Q2035 Given 10/16/2015 Afluria Vaccine [id number] Given 08/20/2012 Tdap - [id number] Tetanus/Diptheria/Acellula r Pertussis Q2038 Given 07/20/2012 Fluzone Vaccine [id number] Ordered 07/04/2016 Afluria Vaccine Vital Signs Date Vital Result Comment 04/07/2019 10:44am Height 67 inches 5'7" Weight [...] Result H/L Range Note Urinalysis Profile 04/03/2019 [facility] Urine Color Yellow [address] [place] [address] [phone] Urine Appearance Cloudy Urine Specific Baltic 1.014 N 1.010-1.030 Urine pH 7.0 N [...] Present Abnormal Absent Urine Culture And 04/03/2019 [facility] Urine Culture SEE RESULT [address] [place] [address] [phone] CBC Auto Diff 04/03/2019 [facility] White Blood 7.8 10^3/uL N 3.5-[address] Count .8 [place] [address] [phone] Red Blood Count 4.08 10^6/uL N 3.70-4.87 [...] Cells % 0.1 Comp Metabolic Panel 04/03/2019 [facility] Sodium 137 mmol/L N 135-145 [address] [place] [address] [phone] Potassium 4.3 mmol/L N 3.5-5.0 Chloride 105 [...] Egfr 103.6 >60 2 Laboratory test 04/03/2019 [facility] HCG < 0.60 mIU/ mL 3 finding [address] [place] [address] [phone] Urine Culture And 02/13/2019 [facility] Urine Culture SEE RESULT [address] [place] [address] [phone] Urinalysis Profile 02/13/2019 [facility] Urine Color Yellow [address] [place] [address] [phone] Urine Appearance Cloudy Urine Specific Baltic 1.020 N 1.010-1.030 Urine pH 7.0 N [...] Cell Present Abnormal Absent Laboratory test 02/13/2019 [facility] HCG < 0.60 mIU/ mL [address] [place] [address] [phone] Lamotrigine (Lamictal) 8.3 g/mL 2.5 - 15.0 7 Basic Metabolic Panel 02/13/2019 [facility] Sodium 140 mmol/L N 135-[address] [place] [address] [phone] Potassium 4.5 mmol/L N 3.5-5.0 Chloride 106 mmol/L N 101-111 Co2 Carbon Dioxide 27 mmol/L N 22-32 Anion Gap 7 mmol/L N 2-11 Glucose 115 mg/dL High 70-100 Blood Urea Nitrogen 10 mg/dL N 6-24 Creatinine 0.65 mg/dL N 0.51-0.95 BUN/Creatinine Ratio 15.4 N 8-20 Calcium 9.3 mg/dL N 8.6-10.3 Egfr Non- 102.6 >60 Egfr 124.1 >60 8 CBC Auto Diff 02/13/2019 [facility] White Blood 8.4 10^3/uL N 3.5-10.[address] [place] [address] [phone] Red Blood Count 4.17 10^6/uL N 3.70-4.87 [...] Blood Cells % 0.1 Laboratory test 02/13/2019 [facility] TSH (Thyroid 3.55 mcIU/mL N 0.34-5.[address] Stim Horm) [place], [place] [id number] [phone] Rapid Influenza 01/30/2019 [facility] Influenza A NEGATIVE Negative 9 A & B Molecular [address] Molecular [place], [place] [id number] [phone] Influenza B Molecular NEGATIVE Negative Laboratory test 01/30/2019 [facility] Rapid SEE RESULT [address] Influ[place] [address] Antigen [phone] Urine Culture And 01/17/2019 [facility] Urine Culture SEE RESULT [address] [place] [address] [phone] Laboratory test 01/17/2019 [facility] Magnesium 1.8 mg/dL Low 1.9-[address] .[address] [place], [place] [id number] [phone] Creatine Kinase(CK) 84 U/L N 10-223 Alcohol < 10 mg/dL N <10 TSH (Thyroid Stim Horm) 3.86 mcIU/mL N 0.34-5.60 HCG < 0.60 mIU/mL 12 Comp Metabolic Panel 01/17/2019 [facility] Sodium 138 mmol/L N 135-[address] [place], [place] [address] [phone] Potassium 4.0 mmol/L N 3.5-5.0 Chloride 105 [...] Egfr 110.3 >60 13 Laboratory test 01/17/2019 [facility] Lactic Acid 1.8 mmol/L N 0.5-2.0 [address] [place] [address] [phone] CBC Auto Diff 01/17/2019 [facility] White Blood 7.7 10^3/uL N 3.5-10.[address] [place] [address] [phone] Red Blood Count 3.97 10^6/uL Low 4.00-5.40 [...] Blood Cells % 0 Laboratory test 01/17/2019 [facility] Partial 28.7 seconds N 26.0-36.[address] [place] [address] PTT [phone] Inr/Protime 01/17/2019 [facility] Inr 0.96 N 0.77-1.[address] [place], [place] [id number] [phone] Urinalysis 01/17/2019 [facility] Urine Color Yellow Profile [address] [place] [address] [phone] Urine Appearance Cloudy Urine Specific Baltic 1.017 N 1.010-1.030 Urine pH 6.0 N [...] Cell Present Abnormal Absent Urine Drug 01/17/2019 [facility] Amphetamine Ur None Detected None Detect SCR ED & [address] [place] [address] [phone] Barbiturates Urine Screen None Detected None Detect Benzodiazepine Urine Screen None Detected None Detect Urine Cannabinoids Screen None Detected None Detect Urine Cocaine Screen None Detected None Detect Urine Opiates Screen None Detected None Detect Urine Phencyclidine Screen None Detected None Detect 16 Laboratory test 01/04/2019 [facility] TSH (Thyroid 2.58 mcIU/mL N 0.34-5.[address] Stim Horm) [place] [address] [phone] Lamotrigine (Lamictal) 11.2 g/mL 2.5 - 15.0 18 Comp Metabolic Panel 01/04/2019 [facility] Sodium 137 mmol/L N 135-[address] [place] [address] [phone] Potassium 4.1 mmol/L N 3.5-5.0 Chloride 105 [...] 110.3 >60 19 CBC Auto Diff 01/04/2019 [facility] White Blood 6.9 10^3/uL N 3.5-10.8 [address] [place] [address] [phone] Red Blood Count 4.16 10^6/uL N 4.00-5.40 [...] Blood Cells % 0 Poc Urinalysis 01/04/2019 [facility] Poc Glucose, Negative Negative [address] [place] [address] [phone] Poc Bilirubin, Urine Negative Negative Poc Ketone, Urine Negative Negative Poc Specific Baltic, Urine 1.020 N 1.010-1.030 Poc Blood, Urine 1+ Abnormal Negative Poc pH, Urine 7.5 N 5-9 Poc Protein, Urine Negative Negative Poc Urobilinogen, Urine 0.2 Negative Poc Nitrite, Urine Negative Negative Poc Leukocytes, Urine 3+ Abnormal Negative Poc Color, Urine Yellow Poc Clarity, Urine Clear 20 Urine Culture And 01/04/2019 [facility] Urine Culture SEE RESULT 21, [address] BEL[place], [place] [phone] Laboratory test 12/29/2018 [facility] Fecal SEE RESULT [address] [place] [address] (Stool WBC) [phone] CBC Auto Diff 12/05/2018 [facility] White Blood 8.4 N 3.5- [address] Count 10^3/uL 10.8 [place], [place] [id number] [phone] Red Blood Count 4.29 10^6/uL N 4.00-5.40 [...] Cells % 0 Comp Metabolic Panel 12/05/2018 [facility] Sodium 140 mmol/L N 135-[address] [place] [address] [phone] Potassium 4.4 mmol/L N 3.5-5.0 Chloride 105 [...] Egfr 108.5 >60 24 Laboratory test 12/05/2018 [facility] Lipase < 10 U/L Low 11.0 -82.[address] [place] [address] [phone] HCG < 0.60 mIU/mL 25 Laboratory test 11/17/2018 [facility] Rapid Strep Negative Negative [address] [place] [address] [phone] Laboratory test 11/17/2018 [facility] Rapid Strep A SEE RESULT [address] [place] [address] [phone] Laboratory test 10/23/2018 [facility] Rapid Strep Negative Negative [address] [place] [address] [phone] Laboratory test 06/25/2018 [facility] TSH (Thyroid 3.56 mcIU/mL N 0.34-5.[address] Stim Horm) [place] [address] [phone] CBC Auto Diff 06/25/2018 [facility] White Blood 6.9 10^3/uL N 3.5-10.[address] [place] [address] [phone] Red Blood Count 3.80 10^6/uL Low 4.00-5.40 [...] % 0.1 Iron & Iron Binding 06/25/2018 [facility] Iron 52 g/dL N 50- 212 Capacity [address] [place] [address] [phone] Unsaturated Iron Binding 280 g/dL Total Iron Binding Capacity 332 g/dL N 250-450 Transferrin 237 mg/dL N 203-362 % Iron Saturation 16 % N 15-55 Vitamin B12 And 05/01/2018 [facility] Vitamin B12 537 pg/mL N 180-914 29 Folate Serum 101 [place] [address] [phone] Folic Acid (Folate) 6.33 ng/mL >3.99 Laboratory test 05/01/2018 [facility] Ferritin 14.5 ng/mL N 11 -307 finding 101 [place] [address] [phone] CBC Auto Diff 05/01/2018 [facility] White Blood 4.7 10^3/uL N 3.5-10.8 [address] [facility] [place] [address] [phone] Red Blood Count 3.74 10^6/uL Low 4.00-5.40 [...] Blood Cells % 0 Lipid Profile 05/01/2018 [facility] Triglycerides 221 mg/dL 30 (Trig/Chol/HDL) [place] [address] [phone] Cholesterol 171 mg/dL 31 HDL Cholesterol 26.6 mg/dL 32 LDL Cholesterol 100 mg/dL 33 Iron & Iron Binding 05/01/2018 [facility] Iron 32 g/dL Low 50-[address] [place], [place] [id number] [phone] Unsaturated Iron Binding 298 g/dL Total Iron Binding Capacity 330 g/dL N 250-450 Transferrin 236 mg/dL N 203-362 % Iron Saturation 10 % Low 15-55 Laboratory 05/01/2018 [facility] TSH (Thyroid 6.43 High 0.34- 5.[address] Stim Horm) mcIU/[place] [address] [phone] Lipid Profile 04/22/2018 [facility] Triglycerides 177 mg/dL 35 (Trig/Chol/HD DRIVE L) [place], [place] [phone] Cholesterol 172 mg/dL 36 HDL Cholesterol 34.1 mg/dL 37 LDL Cholesterol 103 mg/dL 38 Laboratory test 04/22/2018 [facility] TSH (Thyroid 4.16 mcIU/mL N 0.34-5.[address] Stim Horm) [place] [address] [phone] CBC Auto Diff 04/22/2018 [facility] White Blood 7.5 10^3/uL N 3.5-10.8 [place] [address] [phone] Red Blood Count 3.55 10^6/uL Low 4.00-5.40 [...] Red Blood Cells % 0 Laboratory 04/10/2018 [facility] Rapid Strep Negative Negative 39 test finding [facility] [employer] [facility] [place] [address] [phone] Laboratory 04/10/2018 [facility] Rapid Strep A SEE RESULT 40 test finding [facility] [employer] [facility] [place] [address] [phone] Laboratory 04/02/2018 [facility] Lamotrigine 15.9 g/mL 2.5 - 15.0 41 test finding [facility] [employer] [facility] (Lamictal) [place] [address] [phone] Comp Metabolic 04/02/2018 [facility] Sodium 137 mmol/L Low 139 -[address] [place] [address] [phone] Potassium 4.0 mmol/L N 3.5-5.0 Chloride 104 [...] Egfr 107.5 >60 42 Laboratory test 03/10/2018 [facility] Lamotrigine 13.1 g/mL 2.5 - [address] [place] [address] (Lamictal) 15.0 [place] [address] [phone] Laboratory test 08/25/2017 [facility] TSH (Thyroid 1.89 N 0.34 -5.6 finding 101 [facility] Stim Horm) mcIU/mL 0 [place] [address] [phone] Comp Metabolic 07/22/2017 [facility] Sodium 137 mmol/L N 133- 145 Panel [facility] [place] [address] [phone] Potassium 4.1 mmol/L N 3.5-5.0 Chloride 105 [...] 92.8 N >60 44 Laboratory test 07/22/2017 [facility] Hemoglobin A1c 5.2 % N Less than [address] (Glyco HGB) 6.0 [place] [address] [phone] Ua Routine 06/18/2017 [facility] Ua Specific 1.015 Baltic Ua PH 6 Ua Color martín Ua Appera cloudy Ua WBC trace Ua Protein trace Ua Glucose neg Ua Ketones neg Ua Bilirubin neg Ua Urobilinogen neg Ua Nitrite neg Ua Occult Blood large Urine Culture And 06/18/2017 [facility] Urine Culture SEE RESULT [address] [place] [address] [phone] Laboratory test 04/08/2017 [facility] Thyroglobulin AB <1.8 IU/ mL N <4.0 [address] [place] [address] [phone] Thyroperoxidase AB 315.57 IU/mL High <9 Free T4 (Free Thyroxine) 0.67 ng/dL N 0.61-1.12 TSH (Thyroid Stim Horm) 4.16 mcIU/mL N 0.34-5.60 Comp Metabolic Panel 04/04/2017 [facility] Sodium 138 mmol/L N 133-[address] [place] [address] [phone] Potassium 3.7 mmol/L N 3.5-5.0 Chloride 107 [...] N >60 48 CBC Auto Diff 04/04/2017 [facility] White Blood 8.2 10^3/uL N 3.5-10.[address] [place] [address] [phone] Red Blood Count 3.94 10^6/uL Low 4.0-5.4 [...] Cells % 0 N Laboratory test 04/04/2017 [facility] Monospot Negative N Negative finding [address] [place] [address] [phone] Urinalysis Profile 04/04/2017 [facility] Urine Color Yellow N [address] [place] [address] [phone] Urine Appearance Cloudy N Urine Specific Baltic 1.019 N 1.010-1.030 Urine pH 7.0 N [...] Present Abnormal Absent Urine Culture And 04/04/2017 [facility] Urine Culture SEE RESULT [address] [place] [address] [phone] Laboratory test 04/04/2017 [facility] Lactic Acid 1.7 mmol/L N 0.5-[address] [place] [address] [phone] Rapid Strep A SEE RESULT BELOW 51 Laboratory test 04/04/2017 [facility] Magnesium 1.8 mg/dL Low 1.9-2.[address] [place] [address] [phone] Troponin-I (TnI) 0.00 ng/mL N <0.04 52 TSH (Thyroid Stim Horm) 6.69 mcIU/mL High 0.34-5.60 Laboratory 04/04/2017 [facility] Rapid Strep Negative N Negative [address] [place] [address] [phone] Laboratory 10/02/2016 [facility] Lamotrigine 12.6 g/mL N 2.5 - 15.[address] (Lamictal) [place] [address] [phone] Topomax (Topiramate) 2.3 g/mL N 55 CBC Auto Diff 10/02/2016 [facility] White Blood 6.9 10^3/uL N 3.5-10.[address] [place] [address] [phone] Red Blood Count 4.03 10^6/uL N 4.0-5.4 [...] % 0 N Comp Metabolic Panel 10/02/2016 [facility] Sodium 136 mmol/L N 133-[address] [place] [address] [phone] Potassium 3.8 mmol/L N 3.5-5.0 Chloride 108 [...] N >60 56 CBC Auto Diff 03/10/2016 [facility] White Blood 9.6 10^3/uL N 3.5-10.[address] [place] [address] [phone] Red Blood Count 4.58 10^6/uL N 4.0-5.4 [...] Cells % 0 N Laboratory test 03/10/2016 [facility] Partial 31.7 seconds N 26.0-36.3 finding [address] [facility] [place] [address] PTT [phone] Lactic Acid 1.3 mmol/L N 0.5-2.0 57 Laboratory test 03/10/2016 [facility] HCG < 0.60 mIU/ mL N 58 finding [address] [place] [address] [phone] TSH (Thyroid Stim Horm) 1.40 ?IU/mL N 0.34-5.60 B-Type Natriuretic Peptide BNP 18 pg/mL N 59 Lamotrigine (Lamictal) 14.9 g/mL N 2.5 - 15.0 60 Comp Metabolic Panel 03/10/2016 [facility] Sodium 137 mmol/L N 133-145 [address] [place] [address] [phone] Potassium 3.7 mmol/L N 3.5-5.0 Chloride 108 [...] Egfr 93.4 N >60 61 Inr/Protime 03/10/2016 [facility] Inr 1.10 N 0.89-1.[address] [place] [address] [phone] Laboratory test 03/10/2016 [facility] Magnesium 2.2 mg/dL N 1.9-2.[address] [place] [address] [phone] Lipase 8 U/L Low 11.0-82.0 Creatine Kinase(CK) 63 U/L N 10-223 C Reactive Protein 14.41 mg/L High < 5.00 62 Troponin-I (TnI) 0.00 ng/mL N <0.03 63 CKMB 03/10/2016 [facility] CKMB ng/mL 1.1 ng/mL N 0.6-6.[address] [place] [address] [phone] Laboratory test 02/26/2016 [facility] Vitamin D 31.3 ng/mL N 30-[address] Total 25(Oh) [place] [address] [phone] Basic Metabolic 01/01/2016 [facility] Sodium 138 mmol/L N 133- [address] [place] [address] [phone] Potassium 4.0 mmol/L N 3.5-5.0 Chloride 108 mmol/L N 101-111 Co2 Carbon Dioxide 22 mmol/L N 22-32 Anion Gap 8 mmol/L N 2-11 Glucose 92 mg/dL N 70-100 Blood Urea Nitrogen 9 mg/dL N 6-24 Creatinine 0.75 mg/dL N 0.51-0.95 BUN/Creatinine Ratio 12.0 N 8-20 Calcium 9.2 mg/dL N 8.6-10.3 Egfr Non- 88.5 N >60 Egfr 113.8 N >60 64 Laboratory test 01/01/2016 [facility] Alkaline 78 U/L N 34- [address] [place] [address] [phone] CBC Auto Diff 01/01/2016 [facility] White Blood Count 8.8 N 3.5-10.[address] 10^3/[place] [address] [phone] Red Blood Count 4.00 10^6/uL N 4.0-5.4 [...] Cells % 0 N Laboratory test 12/25/2015 [facility] Vitamin D 25.9 ng/mL Low 30-50 [address] Total 25(Oh) [place] [address] [phone] TSH (Thyroid Stim Horm) 4.01 ?IU/mL N 0.34-5.60 66 Lipid Profile 12/25/2015 [facility] Triglycerides 214 mg/dL N 67 (Trig/Chol/HDL) [address] [place], [place] [address] [phone] Cholesterol 177 mg/dL N 68 HDL Cholesterol 37.5 mg/dL N 69 LDL Cholesterol 97 mg/dL N 70 Laboratory test 12/25/2015 [facility] Glucose 98 mg/dL N 70- 100 [address] [place], [place] [address] [phone] Laboratory test 12/20/2015 [facility] Cytology SEE RESULT [address] BELOW [place], [place] [address] [phone] HPV Rna Ww/Reflex Genotype Negative N Negative 73 Laboratory test 08/14/2015 [facility] Urine Culture And SEE RESULT [address] [place] [address] [phone] Laboratory test 08/14/2015 [facility] Beta HCG (BHCG) < 0.60 N finding [address] Quantitative mIU/[place] [address] [phone] Urinalysis 08/14/2015 [facility] Urine Color Yellow N Profile [address] [place] [address] [phone] Urine Appearance Cloudy N Urine Specific Baltic 1.013 N 1.010-1.030 Urine pH 6.0 N [...] Present Abnormal Absent CBC Auto Diff 06/11/2015 [facility] White Blood 6.3 10^3/uL N 4.8-10.[address] [place] [address] [phone] Red Blood Count 4.38 10^6/uL N 4.0-5.4 [...] Cells % 0.1 N Laboratory test 06/11/2015 [facility] HCG Qualitative Negative N Negative 75 finding [address] [place] [address] [phone] Urinalysis 06/11/2015 [facility] Urine Color Yellow N Profile [address] [place] [address] [phone] Urine Appearance Cloudy N Urine Specific Baltic 1.026 N 1.010-1.030 Urine pH 5.0 N [...] Epithelial Cell Present Abnormal Absent Laboratory 06/11/2015 [facility] Lactic Acid 1.0 mmol/L N 0.5- 2.2 test finding [address] [place] [address] [phone] Urine Drug SCR 06/11/2015 [facility] Amphetamine Ur None N None Detect ED & Pain [address] [place] [address] [phone] Barbiturates Urine Screen None Detected N None Detect Benzodiazepine Urine Screen None Detected N None Detect Urine Cannabinoids Screen None Detected N None Detect Urine Cocaine Screen None Detected N None Detect Urine Opiates Screen Presumptive Posi <SEE NOTE> Abnormal None Detect 76 Urine Phencyclidine Screen None Detected N None Detect 77 Laboratory test 06/11/2015 [facility] Lamotrigine 11.0 g/mL N 2.5 - [address] (Lamictal) 15.0 [place], [place] [phone] [phone] Urine Culture And Sensitivities SEE RESULT BELOW 79 Laboratory test 05/16/2015 [facility] Culture SEE RESULT [address] [place] [address] [phone] CBC Auto Diff 03/16/2015 [facility] White Blood 8.6 10^3/uL N 4.8-[address] Count .8 [place] [address] [phone] Red Blood Count 4.41 10^6/uL N 4.0-5.4 [...] Cells % 0 N Laboratory test 03/16/2015 [facility] Monospot Negative N Negative [address] [place] [address] [phone] CBC Auto Diff 03/09/2015 [facility] White Blood 6.8 10^3/uL N 4.8-10.[address] [place] [address] [phone] Red Blood Count 4.28 10^6/uL N 4.0-5.4 [...] % 0 N Comp Metabolic Panel 03/09/2015 [facility] Sodium 136 mmol/L N 133-[address] [place] [address] [phone] Potassium 4.0 mmol/L N 3.5-5.0 Chloride 107 [...] 118.1 N >60 82 Urinalysis Profile 02/16/2015 [facility] Urine Color Yellow N [address] [place] [address] [phone] Urine Appearance Cloudy N Urine Specific Baltic 1.017 N 1.010-1.030 Urine pH 6.0 N [...] Present Abnormal Absent Urine Culture And 02/16/2015 [facility] Urine (SEE NOTE) [address] [place] [address] [phone] CBC Auto Diff 02/16/2015 [facility] White Blood 11.5 High 4.8- [address] Count 10^3/uL 0.8 [place] [address] [phone] Red Blood Count 4.32 10^6/uL N 4.0-5.4 [...] % 0 N Comp Metabolic Panel 02/16/2015 [facility] Sodium 139 mmol/L N 133-[address] [place] [address] [phone] Potassium 4.3 mmol/L N 3.5-5.0 Chloride 106 [...] 116.2 N >60 84 Laboratory test 02/16/2015 [facility] Magnesium 2.0 mg/dL N 1.9-2.[address] [place] [address] [phone] TSH (Thyroid Stimulating Horm) 1.87 IU/mL N 0.34-5.60 Lamotrigine 7.8 g/mL N 2.5 - 15.0 85 CBC Auto 02/14/2015 [facility] White Blood 13.0 10^3/uL High 4.8-10.[address] [place] [address] [phone] Red Blood Count 4.32 10^6/uL N 4.0-5.4 [...] % 0.1 N Comp Metabolic Panel 02/14/2015 [facility] Sodium 136 mmol/L N 133-[address] [place] [address] [phone] Potassium 4.5 mmol/L N 3.5-5.0 Chloride 103 [...] 107.8 N >60 86 Laboratory test 01/26/2015 [facility] Surgical RUN DATE: [address] Pathology 02/02/ [place] [address] <SEE NOTE> [phone] Surgical 01/26/2015 [facility] S RUN DATE: [address] 02/02/ [place] [address] <SEE NOTE> [phone] Laboratory test 12/28/2014 [facility] Lamotrigine 12.4 N 2.5 [address] g/[place] [address] 15.0 [phone] Laboratory test 12/07/2014 [facility] Lamotrigine 9.5 g/mL N 2.5 [address] [place] [address] 15.0 [phone] Vitamin D 1,25 12/07/2014 [facility] Vitamin D 98 pg/mL Abnormal 18-7 91 And Vitamin D,[address] 1,25-Dihydroxy 8 [place] [address] [phone] Vitamin D, 25 12/07/2014 [facility] 25-Hydroxy 73 ng/mL N Hydroxy [address] Vitamin D2 [place] [address] [phone] 25-Hydroxy Vitamin D3 6.3 ng/mL N 25-Hydroxy Vitamin D Total 79 ng/mL N 92 Laboratory test 12/07/2014 [facility] In House Hemoglobin A1c 5.1 5-7 finding [...] Cells % 0.1 N Lipid Panel - [facility] 08/10/2014 Creatine Kinase 76 U/L N 10-223 [...] mg/dL N 104 Comp Metabolic Panel 01/10/2014 [facility] Sodium 139 mmol/L 133-[address] [place] [address] [phone] Potassium 3.9 mmol/L 3.7-5.6 Chloride 107 mmol/L [...] 113.4 >60 105 CBC Auto Diff 01/10/2014 [facility] White Blood 8.7 10^3/uL 4.8-10.[address] [place] [address] [phone] Red Blood Count 4.28 10^6/uL 4.0-5.4 Hemoglobin [...] Blood Cells % 0 Laboratory test 10/28/2013 [facility] Lamotrigine 8.4 g/mL 2.5 - 15.0 [address] [place], [place] [address] [phone] Laboratory test 09/01/2013 [facility] Lamotrigine 7.6 g/mL 2.5 - 15.0 [address] [place] [address] [phone] Laboratory test 05/29/2013 [facility] Lamotrigine 10.9 g/mL 2.5 - 15.0 [address] [place], [place] [address] [phone] Urine Culture 05/28/2013 [facility] Urine Culture (SEE NOTE) [address] Sensitivities [place], [place] [address] [phone] Laboratory test 12/15/2012 [facility] Lamotrigine 5.2 g/mL 2.5 - 15.0 [address] [place] [address] [phone] Laboratory test 10/22/2012 [facility] Serum Negative Negative [address] [place], [place] [address] [phone] Urine Culture 10/22/2012 [facility] Urine Culture (SEE NOTE) [address] Sensitivities [place], [place] [address] [phone] Throat-Beta 09/25/2012 [facility] Throat Beta (SEE NOTE) [address] [place] [address] [phone] Laboratory test 09/03/2012 [facility] Lamotrigine 3.9 g/mL 2.5 - 15.0 114 finding [address] [place] [address] [phone] Comp Metabolic 07/14/2012 [facility] Sodium 138 mmol/L 135- 145 Panel [address] [place] [address] [phone] Potassium 4.3 mmol/L 3.5-5.0 Chloride 106 mmol/L [...] > 60 117 CBC No Diff 07/14/2012 [facility] White Blood Count 8.2 CUMM 4.8-10.8 [address] [place] [address] [phone] Red Cell Count 3.83 CUMM Low 4.2-5.4 Hemoglobin 12.3 g/dL 12.0-16.0 Hematocrit 37 % 35-47 Mean Corpuscular Volume 96 um3 79-97 Mean Corpuscular Hemoglob 32 pg High 27-31 Mean Corpuscular HGB Cone 34 g/dL 32-36 Redcell Distribution WDTH 15 % 10.5-15 Platelet Count 312 CUMM 150-450 Mean Platelet Volume 8.6 um3 7.4-10.4 Laboratory test 07/14/2012 [facility] Lamotrigine 3.8 g/mL 2.5 - [address] 15[address]0 [place] [address] [phone] 1 SEE RESULT BELOW Name: DEAN PENG Lee : [address]: Bhavik Winter MD Acct: [id number] Unit: [id number] AGE: 38 Location: ED Re04/03/19 SEX: F Status: DEP ER SPEC: [id number] DEBBIE: 04/03/[address]: Kristen Winter MD REQ: [id number] RECD: 04/03/19 STATUS: TOMASA COCHRAN DR: Jose Bell PHYSICIAN OFFICE NURSE _ SOURCE: URINE SPDESC: ORDERED: Urine Culture Procedure Result Reported Site Urine Culture Final 04/04/19- 1320 ML No growth of clinically significant organisms * ML - Main Lab . END OF REPORT DEPARTMENT OF PATHOLOGY, [address] [place] [address] Ty Guo M.D. Director [facility] # [id number] 2 Because ethnic data is not always [...] [address]: Marito Shaikh MD Acct: [id number] Unit: [id number] AGE: 38 Location: ED Re02/13/19 SEX: F Status: DEP ER SPEC: [id number] DEBBIE: 02/13/19-[address] [facility] [address]: Nain KOHLER REQ: [id number] RECD: 02/13/19 STATUS: TOMASA COCHRAN DR: [facility] Jose Bell PHYSICIAN OFFICE NURSE _ SOURCE: URINE SPDESC: ORDERED: Urine Culture Procedure Result Reported Site Urine Culture Final 02/15/19- 0750 ML No growth of clinically significant organisms * ML - Main Lab . END OF REPORT DEPARTMENT OF PATHOLOGY, [address] [place] [address] Ty Guo M.D. Director [facility] # [id number] 5 *Ascorbic acid is present which may interfere with detection of blood. 6 <5.0 Negative 5.0 - 25.0 Indeterminate (Repeat testing recommended after 72 hours) >25.0 Positive Perimenopausal women can display HCG levels of up to 20 mIU/mL 7 ADDITIONAL INFORMATION This test was developed and its performance characteristics determined by [facility] in a manner consistent with CLIA requirements. This test has not been cleared or approved by the U.S. Food and Drug Administration. Test Performed by: [facility] [address] [place] [address] 8 Because ethnic data is not always [...] 5 Kidney failure <15 (or dialysis) 9 [employer] Helper: [id number] 10 SEE RESULT BELOW Name: DEAN PENG : [address]: Scooter Copeland Acct: [id number] Unit: [id number] AGE: 38 Location: ED Re01/30/19 SEX: F Status: REG ER SPEC: [id number] DEBBIE: 01/30/[address] [facility] [address]: Helena KOHLER REQ: [id number] RECD: 01/30/19 STATUS: TOMASA COCHRAN DR: Jose Bell PHYSICIAN OFFICE NURSE _ SOURCE: NASAL SPDESC: ORDERED: Flu A B Request Procedure Result Reported Site Rapid Influenza A B Request Final 01/30/19- 1253 ML Specimen received for Influenza A/B Molecular testing * ML - Main Lab . END OF REPORT DEPARTMENT OF PATHOLOGY, [address] [place] [address] Ty Guo M.D. Director [facility] # [id number] 11 SEE RESULT BELOW Name: DEAN PENG : [address]: Marito Shaikh MD Acct: [id number] Unit: [id number] AGE: 38 Location: ED Re01/17/19 SEX: F Status: DEP ER SPEC: [id number] DEBBIE: 01/17/[address]: Marito Shaikh MD REQ: [id number] RECD: 01/17/19 STATUS: TOMASA COCHRAN DR: Jose Bell PHYSICIAN OFFICE NURSE _ SOURCE: URINE SPDESC: ORDERED: Urine Culture Procedure Result Reported Site Urine Culture Final 01/18/19- 1216 ML No growth of clinically significant organisms * ML - Main Lab . END OF REPORT DEPARTMENT OF PATHOLOGY, [address] [place] [address] Ty Guo M.D. Director [facility] # [id number] 12 <5.0 Negative 5.0 - 25.0 Indeterminate [...] 5 Kidney failure <15 (or dialysis) 14 [facility] Severe Sepsis and Septic Shock [...] be used for medical purposes only. 17 [id number] 18 ADDITIONAL INFORMATION This test was developed and its performance characteristics determined by [facility] in a manner consistent with CLIA requirements. This test has not been cleared or approved by the U.S. Food and Drug Administration. Test Performed by: [facility] [address] [place] [address] 19 Because ethnic data is not always [...] 5 Kidney failure <15 (or dialysis) 20 [employer] W[employer] Helper: [id number] 22 SEE RESULT BELOW Name: DEAN PENG : 1980 Attend Dr: Kenrick Duran MD Acct: [id number] Unit: [id number] AGE: 38 Location: [facility] Re01/04/19 SEX: F Status: DEP ER SPEC: [id number] DEBBIE: 01/04/19-[address] [facility] [address]: Kenrick Duran MD REQ: [id number] RECD: 01/04/19160 STATUS: TOMASA COCHRAN DR: Jose Bell PHYSICIAN OFFICE NURSE _ SOURCE: URINE SPDESC: ORDERED: Urine Culture COMMENTS: [id number] Procedure Result Reported Site Urine Culture Final 01/05/19- 1222 ML No growth of clinically significant organisms * ML - Main Lab . END OF REPORT DEPARTMENT OF PATHOLOGY, [address] [place] [address] Ty Guo M.D. Director [facility] # [id number] 23 SEE RESULT BELOW Name: DEAN PENG : [address]: Kyree Gutierrez MD Acct: [id number] Unit: [id number] AGE: 38 Location: [facility] Re12/29/18 SEX: F Status: DEP ER SPEC: [id number] DEBBIE: 12/29/18-[address] [facility] [address]: Kyree Gutierrez MD REQ: [id number] RECD: 12/29/18 STATUS: TOMASA COCHRAN DR: Jose Bell PHYSICIAN OFFICE NURSE _ SOURCE: STOOL SPDESC: ORDERED: Fecal Lactoferr [...] used with this assay. * ML - [facility] . END OF REPORT DEPARTMENT OF PATHOLOGY, [address] [place] [address] Ty Guo M.D. Director [facility] # [id number] 24 Because ethnic data is not always [...] levels of up to 20 mIU/mL 26 Repair Armature Winder Helper: [id number] 27 SEE RESULT BELOW Name: DEAN PENG : [address]: Donna Peguero MD Acct: [id number] Unit: [id number] AGE: 38 Location: [facility] Re11/17/18 SEX: F Status: REG REF SPEC: [id number] DEBBIE: 11/17/[address]: Donna Peguero MD REQ: [id number] RECD: 11/17/18 STATUS: COMP _ SOURCE: THROAT SPDESC: ORDERED: Strep A Request COMMENTS: [id number] Procedure Result Reported Site Rapid Strep A Request Final 11/17/18- 1848 ML Specimen received for Rapid Strep A Molecular testing * ML - Main Lab . END OF REPORT DEPARTMENT OF PATHOLOGY, [address] [place] [address] Ty Guo M.D. Director [facility] # [id number] 28 Repair Armature Winder Helper: [id number] Normal Range 180 to 914 Indeterminate [...] 130-159 High: 160-189 Very High: >189 39 Repair Armature Winder Helper: [id number] 40 SEE RESULT BELOW Name: DEAN PENG : [address]: Cydney Chen MD Acct: [id number] Unit: [id number] AGE: 37 Location: ED Re04/10/18 SEX: F Status: REG ER SPEC: [id number] DEBBIE: 04/10/[address] [facility] [address]: Cydney Chen MD REQ: [id number] RECD: 04/10/18 STATUS: TOMASA COCHRAN DR: Tanvir Vizcarra MD _ SOURCE: THROAT SPDESC: ORDERED: Strep A Request Procedure Result Reported Site Rapid Strep A Request Final 04/10/18- 0237 ML Specimen received for Rapid Strep A Molecular testing * ML - Main Lab . END OF REPORT DEPARTMENT OF PATHOLOGY, [address] [place] [address] Ty Guo M.D. Director [facility] # [id number] 41 ADDITIONAL INFORMATION This test was developed and its performance characteristics determined by [facility] in a manner consistent with CLIA requirements. This test has not been cleared or approved by the U.S. Food and Drug Administration. Test Performed by: [facility] [address] [place] [address] 42 Because ethnic data is not always [...] developed and its performance characteristics determined by [facility] in a manner consistent with CLIA requirements. This test has not been cleared or approved by the U.S. Food and Drug Administration. Test Performed by: [facility] [address] [place] [address] 44 Because ethnic data is not always [...] and in selective patients <6.0%.Please refer to [employer] Diabetic care guidelines for further information. 46 SEE RESULT BELOW Name: DEAN PENG : [address]: Tanvir Vizcarra MD Acct: [id number] Unit: [id number] AGE: 36 Location: [facility] Re06/18/17 SEX: F Status: REG REF SPEC: [id number] DEBBIE: 06/18/17-[address]: Tanvir Vizcarra MD REQ: [id number] RECD: 06/18/17 STATUS: COMP _ SOURCE: URINE SPDESC: ORDERED: Urine Culture COMMENTS: [id number] Urine Source: Random Procedure Result Reported Site Urine Culture Final 06/19/17- 1623 ML No growth of clinically significant organisms * ML - MAIN LAB ([facility]) . END OF REPORT * ML=Testing performed at Main Lab DEPARTMENT OF PATHOLOGY, [address] [place] [address] Ty uGo M.D. Director [facility] # [id number] 47 ADDITIONAL INFORMATION The thyroglobulin antibody testing method is an immunoenzymatic assay manufactured by [employer] and performed on the [employer] DXI 800. Values obtained from different assay methods or kits may be different and cannot be used interchangeably. The results cannot be interpreted as absolute evidence for the presence or absence of malignant disease. Test Performed by: [address] [address] 48 Because ethnic data is not always [...] [address]: Vance Garnett DO Acct: [id number] Unit: [id number] AGE: 36 Location: ED Re04/04/17 SEX: F Status: DEP ER SPEC: [id number] DEBBIE: 04/04/[address] [facility] [address]: Vance Garnett DO REQ: [id number] RECD: 04/04/17 STATUS: TOMASA COCHRAN DR: [facility] Baldev Bonner MD _ SOURCE: URINE SPDESC: ORDERED: Urine Culture Procedure Result Reported Site Urine Culture Final 04/06/17- 919 ML No growth of clinically significant organisms * ML - MAIN LAB ([facility]) . END OF REPORT * ML=Testing performed at Main Lab DEPARTMENT OF PATHOLOGY, [address] [place] [address] Ty Guo M.D. Director [facility] # [id number] [facility] Severe Sepsis and Septic Shock Management Bundle Measure requires all lactic acids initially measuring >2.0 mmol/L be repeated. 51 SEE RESULT BELOW Name: DEAN PENG : [address]: [facility] Acct: [id number] Unit: [id number] AGE: 36 Location: ED Re04/04/17 SEX: F Status: REG ER SPEC: [id number] DEBBIE: 04/04/[address] [facility] [address]: Vance Garnett DO REQ: [id number] RECD: 04/04/17 STATUS: TOMASA COCHRAN DR: [facility] Baldev Bonner MD _ SOURCE: THROAT SPDESC: ORDERED: Strep A Request Procedure Result Reported Site Rapid Strep A Request Final 04/04/17- 1047 ML Specimen received for Rapid Strep A Molecular testing * ML - MAIN LAB ([facility]) . END OF REPORT * ML=Testing performed at Main Lab DEPARTMENT OF PATHOLOGY, [address] [place] [address] Ty Guo M.D. Director [facility] # [id number] 52 99th percentile=0.04 ng/mL Troponin results at [facility] and [facility] are not interchangeable. 53 Repair Armature Winder Helper: [id number] 54 ADDITIONAL INFORMATION This test was developed and its performance characteristics determined by [facility] in a manner consistent with CLIA requirements. This test has not been cleared or approved by the U.S. Food and Drug Administration. Test Performed by: [facility] - [address] [address] Low Altitude Air Defense Gunner: Kenrick Hightower II, M.D., Ph.D. 55 REFERENCE VALUE Reference values depend on clinical use: Anticonvulsant: 5.0-20.0 mcg/mL Psychiatric: 2.0-8.0 mcg/mL ADDITIONAL INFORMATION This test was developed and its performance characteristics determined by [facility] in a manner consistent with CLIA requirements. This test has not been cleared or approved by the U.S. Food and Drug Administration. Test Performed by: [facility] [place] [address] [employer] Alt[employer] Defense Gunner: Kenrick Hightower II, M.D., Ph.D. 56 Because [...] 5 Kidney failure <15 (or dialysis) 57 [facility] Severe Sepsis and Septic Shock [...] to severe CHF 60 Test Performed by: [facility] - [address] [address] [employer] Gunner: Kenrick Hightower II, M.D., Ph.D. 61 Because [...] 0.5 ng/mL Consistent with diagnosis of MA 64 Because ethnic data is not always [...] 10 HOUR 72 SEE RESULT BELOW Name: DEAN PENG Lee : [address]: Jeremiah Zendejas PHYSICIAN OFFICE NURSE Acct: [id number] Unit: [id number] AGE: 35 Location: [facility] Re12/20/15 SEX: F Status: REG REF SPEC: [id number] DEBBIE: 12/20/15-[address]: Jeremiah Zendejas PHYSICIAN OFFICE NURSE REQ: [id number] RECD: 12/20/15 STATUS: SOUT _ ORDERED: IMAGE [...] was evaluated with the assistance of the [employer] Test Imaging System. Due to cytologic findings at the stripping shovel operator microscope, comprehensive manual rescreening by a Buildings And Grounds Supervisor may be required. The Pap Smear is [...] evaluated every 1-3 years. RUN DATE: 12/22/15 [facility] LAB LIVE PAGE 1 Patient: GINETTEDEAN Lee [id number] (Continued) CONTINUED ON NEXT PAGE * ML=Testing performed at Main Lab DEPARTMENT OF PATHOLOGY, [address] [place] [address] Ty Guo M.D. Director [facility] # [id number] 73 The high-risk HPV types detected by the assay include: 16, 18, 31, 33, 35, 39, 45, 51, 52, 56, 58, 59, 66, and 68. 74 SEE RESULT BELOW Name: DEAN PENG : [address]: Jeremiah Zendejas NP Acct: [id number] Unit: [id number] AGE: 34 Location: LAB Re08/14/15 SEX: F Status: REG REF SPEC: [id number] DEBBIE: 08/14/[address] [facility] [address]: Jeremiah Zendejas NP REQ: [id number] RECD: 08/14/15 STATUS: COMP _ SOURCE: URINE SPDESC: ORDERED: Urine Culture Procedure Result Verified Site Urine Culture Final 08/16/15- 1126 ML Organism 1 NORMAL JUDE [place] Count 25-50,000 (Moderate) CFU/ML * ML - MAIN LAB ([facility]) . END OF REPORT * ML=Testing performed at Main Lab DEPARTMENT OF PATHOLOGY, [address] [place] [address] Ty Guo M.D. Director [facility] # [id number] 75 Comment: f 76 Presumptive Positive 77 [...] medical purposes only. 78 Test Performed by: [facility] [address] [place] [address] [employer] Alt[employer] Defense Gunner: Kenrick Hightower II, M.D., Ph.D. 79 SEE RESULT BELOW Name: CALLIECARIDADDEAN Lee : [address]: Justin Tom MD Acct: [id number] Unit: [id number] AGE: 34 Location: ED Re06/11/15 SEX: F Status: DEP ER SPEC: [id number] DEBBIE: 06/11/[address] [facility] [address]: Justin Tom MD REQ: [id number] RECD: 06/11/15 STATUS: TOMASA COCHRAN DR: [facility] Jeremiah Zendejas PHYSICIAN OFFICE NURSE _ SOURCE: URINE SPDESC: ORDERED: Urine Culture Procedure Result Verified Site Urine Culture Final 06/14/15- 0939 ML Organism 1 NORMAL JUDE [place] Count >100,000 (Many) CFU/ML * ML - [facility] ([facility]) . END OF REPORT * ML=Testing performed at Main Lab DEPARTMENT OF PATHOLOGY, [address] [place] [address] yT Guo M.D. Director [facility] # [id number] 80 SEE RESULT BELOW Name: DEAN PENG : [address]: Jeremiah Zendejas NP Acct: [id number] Unit: [id number] AGE: 34 Location: [facility] Re05/16/15 SEX: F Status: REG REF SPEC: [id number] DEBBIE: 05/16/15-[address] [facility] [address]: Jeremiah Zendejas NP REQ: [id number] RECD: 05/16/15 STATUS: COMP _ SOURCE: THROAT SPDESC: ORDERED: Throat Culture Procedure Result Verified Site Throat Culture Final 05/18/15- 0752 ML Organism 1 NORMAL JUDE Quantity 2+ Throat cultures are clinically indicated to detect the presence of group A strep, arcanobacterium and yeast. In certain cases, predominating organisms will be reported. * ML - MAIN LAB ([facility]) . END OF REPORT * ML=Testing performed at Main Lab DEPARTMENT OF PATHOLOGY, [address] [place] [address] Ty Guo M.D. Director [facility] # [id number] 81 N 82 Because ethnic data is [...] <15 (or dialysis) 83 RUN DATE: 02/19/15 [facility] LAB LIVE PAGE 1 RUN TIME: [address] [place] [address] Specimen Inquiry Name: DEAN PENG : [address]: Srinivas Boston MD Acct: [id number] Unit: [id number] AGE: 34 Location: ED Re02/16/15 SEX: F Status: DEP ER SPEC: [id number] DEBBIE: 02/16/[address]: Hernando BROQ: [id number] RECD: 02/16/15 STATUS: TOMASA COCHRAN DR: [facility] Marito Turpin III, MD _ SOURCE: URINE [facility]: ORDERED: Urine Culture Procedure Result Verified Site Urine Culture Final 02/19/15- 0834 ML Organism 1 ESCHERICHIA COLI [place] Count 25-50,000 (Moderate) CFU/ML Organism 2 NORMAL JUDE [place] Count 25-50,000 (Moderate) CFU/ML 1. ESCHERICHIA COLI [...] antibiotic reporting. * ML - MAIN LAB ([facility]) . END OF REPORT * ML=Testing performed at Main Lab DEPARTMENT OF PATHOLOGY, [address] [place] [address] Ty Guo M.D. Director [facility] # [id number] 84 Because ethnic data is not always [...] <15 (or dialysis) 85 Test Performed by: [place] [address] Low Alt[employer] Defense Gunner: Kenrick Hightower II, M.D., Ph.D. 86 Because ethnic data [...] <15 (or dialysis) 87 RUN DATE: 02/02/15 [facility] LAB LIVE PAGE 1 RUN TIME: [address] [place] [address] Specimen Inquiry Name: DEAN PENG Lee : [address]: Jeremiah Zendejas PHYSICIAN OFFICE NURSE Acct: [id number] Unit: [id number] AGE: 34 Location: [facility] Re01/26/15 SEX: F Status: REG REF SPEC: [id number] DEBBIE: 01/26/15-[address]: Tanvir Vizcarra MD REQ: [id number] RECD: 01/26/15 STATUS: SHAUN COCHRAN DR: Jeremiah Zendejas PHYSICIAN OFFICE NURSE _ ORDERED: GOTelma BAEZ STN, PASS STAIN, LEVEL IV FINAL DIAGNOSIS [...] performed at Main Lab DEPARTMENT OF PATHOLOGY, [facility] [employer] [place] [address] Ty Guo M.D. Director [facility] # [id number] 88 RUN DATE: 02/02/15 [facility] LAB LIVE PAGE 1 RUN TIME: 1026 [facility] [employer] [place], [place] [address] Specimen Inquiry Name: DEAN PENG : [address]: Jeremiah Zendejas NP Acct: [id number] Unit: [id number] AGE: 34 Location: [facility] Re01/26/15 SEX: F Status: REG REF SPEC: [id number] DEBBIE: 01/26/[address] [facility] [address]: Tanvir Vizcarra MD REQ: [id number] RECD: 01/26/15 STATUS: SHAUN COCHRAN DR: Jeremiah Zendejas PHYSICIAN OFFICE NURSE _ ORDERED: GOM METH STN, PASS STAIN, [...] at Main Lab DEPARTMENT OF PATHOLOGY, [address] [place] [address] Ty Guo M.D. Director [facility] # [id number] RUN DATE: 02/02/15 [facility] LAB LIVE PAGE 2 RUN TIME: [address], [place] [address] Specimen Inquiry Patient: DEAN PENG [id number] (Continued) MICROSCOPIC DESCRIPTION (Continued) Signed (signature on file) Griselda Garsia MD 0928 END OF REPORT * ML=Testing performed at Main Lab DEPARTMENT OF PATHOLOGY, [address] [place], [place] [address] Ty Guo M.D. Director [facility] # [id number] 89 Test Performed by: [place] [address] [employer] Defense Gunner: Kenrick Hightower II, M.D., Ph.D. 90 Test Performed by: [place] [address] [employer] Alt[employer] Defense Gunner: Kurt Hinton M.D. 91 Test Performed by: [place] [address] [employer] Altitude Air Defense Gunner: Kurt Hinton M.D. 92 Interpretation: 51-80 ng/mL (increased risk of hypercalciuria) REFERENCE VALUE 25-HYDROXY D TOTAL (D2+D3) Optimum levels in the healthy population are 20-50, patients with bone disease may benefit from higher levels within this range. Test Performed by: [place] [address] [employer] Alt[employer] Gunner: Kurt Hinton M.D. 93 FASTING 10 HOUR 94 REFERENCE VALUE 25-HYDROXY D TOTAL (D2+D3) Optimum levels in the healthy population are 20-50, patients with bone disease may benefit from higher levels within this range. Test Performed by: [place] [address] [employer] Alt[employer] Air Defense Gunner: Kurt Hinton M.D. 95 FASTING 10 HOUR [...] (or dialysis) 10 Test Performed by: [address] [place] [address] [employer] Altitude Air Defense Gunner: Luis Altamirano III, M.D. 10 Test Performed by: [address] [place] [address] [employer] Alt[employer] Air Defense Gunner: Luis Altamirano III, M.D. 10 Test Performed by: [address] [place] [address] [employer] Alt[employer] Defense Gunner: Luis Altamirano III, M.D. 10 RUN DATE: 05/30/13 [facility] LAB LIVE PAGE 1 9 RUN TIME: [address] [place] [address] Specimen Inquiry Name: DEAN KEYES : [address]: Momo Diaz MD Acct: [id number] Unit: [id number] AGE: 32 Location: [facility] Re05/28/13 SEX: F Status: DEP ER SPEC: [id number] DEBBIE: 05/28/13-[address] [facility] [address]: Momo Diaz MD REQ: [id number] RECD: 05/28/13 STATUS: TOMASA COCHRAN DR: Tanvir Vizcarra MD _ SOURCE: URINE SPDESC: ORDERED: Urine Culture QUERIES: Medent Number [id number] Procedure Result Verified Site Urine Culture Final 05/30/13- 1112 ML Organism 1 NORMAL JUDE [place] Count 25-50,000 (Moderate) CFU/ML END OF REPORT * ML=Testing performed at Main Lab DEPARTMENT OF PATHOLOGY, [facility] [employer] [place], [place] [address] Ty Guo M.D. Director [facility] Permit #[id number] 11 Test Performed by: [address] [address] Low Altitude Air Defense Gunner: uLis Altamirano III, M.D. 11 This test detects intact HCG only and is indicated for the 1 early detection of . 11 RUN DATE: 10/24/12 [facility] LAB LIVE PAGE 1 2 RUN TIME: 928 [facility] [employer] [place], [place] [address] Specimen Inquiry Name: DEAN KEYES : [address]: Charline BAINS,Lynette Davis Acct: [id number] Unit: [id number] AGE: 32 Location: [facility] Re10/22/12 SEX: F Status: DEP ER SPEC: [id number] DEBBIE: 10/22/12-[address] [facility] [address]: Charline BAINS,Lynette Davis REQ: [id number] RECD: 10/22/12 STATUS: TOMASA COCHRAN DR: GISSELL Carlin MD,Yudi Yadav MD,Clinton Blanco _ SOURCE: URINE SPDESC: ORDERED: Urine Culture Procedure Result Verified Site Urine Culture Final 10/24/12- 28 ML Organism 1 STREP GROUP B [place] Count 25-50,000 (Moderate) CFU/ML Organism 2 NORMAL JUDE [place] Count 75-100,000 (Many) CFU/ML Susceptibility testing of penicillins and other B-lactams approved by FDA for treatment of Streptococcus pyogenes (Group A Strep) and Streptococcus agalactiae (Group B Strep) is not necessary for clinical purposes and need not be done routinely, since as with vancomycin, resistant strains have not been recognized. (CLSI S472-Q48;p.66) Positive isolates will be saved for one week. Please call the Microbiology Laboratory if further susceptibility testing is needed. END OF REPORT * ML=Testing performed at Main Lab DEPARTMENT OF PATHOLOGY, [facility] [employer] [place], [place] [address] Ty Guo M.D. Director [facility] Permit #[id number] 11 RUN DATE: 09/27/12 [facility] LAB LIVE PAGE 1 3 RUN TIME: 801 [facility] [employer] [place], [place] [address] Specimen Inquiry Name: DEAN KEYES : [address]: Lucas Arce MD Acct: [id number] Unit: [id number] AGE: 31 Location: [facility] Re09/25/12 SEX: F Status: DEP ER SPEC: [id number] DEBBIE: 09/25/[address] [facility] [address]: Lucas Arce MD REQ: [id number] RECD: 09/25/12 STATUS: TOMASA COCHRAN DR: Yudi Chun MD _ SOURCE: THROAT SPDESC: ORDERED: Throat Beta Str Procedure Result Verified Site Throat Beta Strep Culture Final 09/27/12- 0802 ML Negative For Group A Beta Streptococcus END OF REPORT * ML=Testing performed at Main Lab DEPARTMENT OF PATHOLOGY, [address] [place] [address] Ty Guo M.D. Director [facility] Permit #[id number] 11 Test Performed by: [address] [address] Low Altitude Air Defense Gunner: Luis Altamirano III, M.D. R 11 Anion gap measurement may be of limited value in the 5 presence of any alkalosis, especially in a combined acid base disorder. . 11 A metabolite of Naproxen, O-desmethylnaproxen, has been 6 shown to interfere with the Jenflory-Southlake method for measuring total bilirubin. Samples from [...] (or dialysis) 11 Test Performed by: [address] [address] Low Altitude Air Defense Gunner: Luis Altamirano III, M.D. Procedures Date Code Description Status 08/20/2017 93231 Polysomnography Sleep Staging 4+ Parameters Completed 07/03/2016 00003 EEG Monitoring & Video Recording Completed 07/02/2016 71785 EEG Monitoring & Video Recording Completed 07/01/2016 54032 EEG Monitoring & Video Recording Completed 06/30/2016 76011 EEG Monitoring & Video Recording Completed 06/29/2016 83624 EEG Monitoring & Video Recording Completed 06/28/2016 69071 EEG Monitoring & Video Recording Completed 01/15/2016 87487 Pulmonary Function><Bronchodil Completed 12/21/2015 11758 EKG Tracing & Interpretation Completed 12/20/2015 38817 EKG Tracing & Interpretation Completed 01/26/2015 66147 Biopsy Skin Lesion Single Completed 12/28/2014 15410 EEG Recording Awake & Asleep Completed 01/15/2013 27110 ECHO Stress Test Incl Perf Contiuous ekg Monitoring W/Phys Completed Superv 12/15/2012 08793 Cardiac Event Monitor Completed 12/11/2012 57287 ECHO Transthoracic, Real-Time 2D With Doppler And Color Completed Flow 11/18/2012 07566 EKG Tracing & Interpretation Completed 09/03/2012 37984 Holter Monitor Review (24 hr)dr review & interp only Completed 09/01/2012 35722 Holter Monitor Review (24 hr)dr review & interp only Completed 08/21/2012 19940 EEG Recording Awake & Asleep Completed Encounters Type Date Location Provider Dx Diagnosis Office Visit 02/17/2019 [facility] Zsofia Ray, F44.5 Conversion disorder 11:40a Medicine CONSTRUCTION [employer]ER with seizures or convulsions F41.9 Anxiety disorder, unspecified J30.9 Allergic rhinitis, unspecified N20.0 Calculus of kidney Office Visit 01/19/2019 [facility] Internal Medicine Tawny R42 Dizziness and 11:00a MD Vega giddiness Office Visit 01/15/2019 [facility] Darion G43.009 Migraine w/o 1:00p [facility] [place], PHYSICIAN OFFICE NURSE aura, not intractable, w/o status migrainosus F44.5 Conversion disorder with seizures or convulsions Office Visit 12/08/2018 11:00a [place] Darion Mena G43.009 Migraine w/o aura, Neurologic PHYSICIAN OFFICE NURSE not intractable, [facility] w/o status migrainosus F44.5 Conversion disorder with seizures or convulsions Office Visit 11/17/2018 3:00p [facility] Internal Donna Pegureo, J02.9 Acute pharyngitis, Medicine - MD unspecified [address] H60.93 Unspecified otitis externa, bilateral Office Visit 10/21/2018 1:20p [facility] Internal Jose Bell, J01.90 Acute sinusitis, Medicine - [employer]STRU[employer] [address] R05 Cough H66.92 Otitis media, unspecified, left ear Office Visit 08/19/2018 1:00p [facility] Internal Jose Bell, J01.90 Acute sinusitis, Medicine - [employer] [address] R05 Cough Z23 Encounter for immunization Office Visit 07/15/2018 1:20p [facility] Internal Jose Bell, Z00.01 Encounter for Medicine - [place] [employer] general adult Rd medical exam w abnormal findings G47.33 Obstructive sleep apnea (adult) (pediatric) J45.30 Mild persistent asthma, uncomplicated L03.116 Cellulitis of left lower limb M25.562 Pain in left knee D50.9 Iron deficiency anemia, unspecified 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 D17.1 Benign lipomatous neoplasm of skin, subcu of trunk Z68.43 Body mass index (BMI) 50-59.9 , adult Office Visit 05/08/2018 1:40p [facility] Internal Zsofimagaly E03.9 Hypothyroidism, Medicine - Ray, CONSTRU[employer] unspecified [address] D50.9 Iron deficiency anemia, unspecified K13.79 Other lesions of oral mucosa J06.9 Acute upper respiratory infection, unspecified Office Visit 04/22/2018 11:00a [facility] Internal Jose Bell, H81.399 Other peripheral Medicine - [employer] vertigo, [address] unspecified ear G40.909 Epilepsy, unsp, not intractable, without status epilepticus E03.9 Hypothyroidism, unspecified E66.01 Morbid (severe) obesity due to excess calories N92.0 Excessive and frequent menstruation with regular cycle Z13.220 Encounter for screening for lipoid disorders Office Visit 03/10/2018 2:40p [facility] Tanvir H81.399 Other peripheral Medicine - Pablo Vizcarra vertigo, [address] unspecified ear G40.909 Epilepsy, unsp, not intractable, without status epilepticus Office Visit 01/21/2018 9:40a [facility] Baldev Beck J45.40 Moderate persistent Medicine - Pablo Bonner,FACP asthma, [address] uncomplicated Z23 Encounter for immunization Office Visit 01/15/2018 [facility] Tanvir E03.9 Hypothyroidism, 1:40p Elizabeth [...] intractable, without status migrainosus Office Visit 10/16/2017 [facility] Tanvir E03.9 Hypothyroidism, 1:40p Elizabeth [...] [facility] apnea (adult) [facility] (pediatric) E66.01 Morbid (severe) obesity due to excess calories Office Visit 07/21/2017 10:15a [facility] [place], R06.83 Snoring [facility] J44.9 Chronic obstructive pulmonary disease, unspecified E66.01 Morbid (severe) obesity due to excess calories Office 07/18/2017 Neurohospitalist Clinton Blanco G43.909 Migraine, unsp, Visit 3:00p Elle Yadav M.D. not intractable, without status migrainosus F44.5 Conversion disorder with seizures or convulsions Office Visit 07/17/2017 [facility] Tanvir E03.9 Hypothyroidism, 1:20p Elizabeth Vizcarra M.D. unspecified [address] E66.01 Morbid (severe) obesity due to excess calories R73.9 Hyperglycemia, unspecified Office Visit 06/18/2017 1:20p [facility] Tanvir Vizcarra, R30.0 Dysuria Medicine M.DBryant Office Visit 05/15/2017 2:00p [facility] Tanvir Vizcarra, Z00.00 Encntr for Medicine - M.DBryant general adult [address] medical exam w/o abnormal findings D17.9 Benign lipomatous neoplasm, unspecified G47.33 Obstructive sleep apnea (adult) (pediatric) F33.9 Major depressive disorder, recurrent, unspecified Office 04/18/2017 [facility] Clinton Blanco G43.909 Migraine, unsp, Visit 10:15a Clinic Pablo Yadav not intractable, without status migrainosus F44.5 Conversion disorder with seizures or convulsions Office Visit 04/08/2017 11:20a [facility] Tanvir Vizcarra, J06.9 Acute upper Medicine - M.DBryant respiratory [address] infection, unspecified H81.393 Other peripheral vertigo, bilateral E03.9 Hypothyroidism, unspecified Office Visit 04/02/2017 [facility] Internal Marito Gruber K08.89 Other specified 2:20p Elizabeth Turpin M.D. disorders of teeth [place] and supporting structures Office Visit 03/25/2017 [facility] Tanvir K05.00 Acute gingivitis, 3:40p Medicine - [place], plaque induced [address] M.D. Office Visit 10/31/2016 [facility] Internal Jeremiah Zendejas, J00 Acute nasopharyngitis 2:20p Medicine - PHYSICIAN OFFICE NURSE [common cold] [address] Office Visit 10/29/2016 [facility] Jeremiah Zendejas, F41.9 Anxiety disorder, 11:00a Medicine - PHYSICIAN OFFICE NURSE unspecified [address] F33.9 Major depressive disorder, recurrent, unspecified F44.5 Conversion disorder with seizures or convulsions G43.909 Migraine, unsp, not intractable, without status migrainosus Z02.71 Encounter for disability determination Office 10/17/2016 Neurohospitalist Clinton Blanco G43.909 Migraine, unsp, Visit 10:00a Clinic Pablo Yadav not intractable, without status migrainosus F44.5 Conversion disorder with seizures or convulsions Office Visit 10/07/2016 10:40a [facility] Internal Jeremiah Zendejas, G43.909 Migraine , unsp, Medicine - PHYSICIAN OFFICE NURSE not intractable, [address] without status migrainosus [...] Neurologic Pablo Yadav not intractable, Services [facility] w/o status migrainosus G40.209 Local-rel symptc epi w cmplx prt seiz,not ntrct,w/o stat epi Office Visit 05/03/2016 1:40p [facility] Internal Jeremiah Zendejas, M79.632 Pain in left Medicine - [place] PHYSICIAN OFFICE NURSE forearm Rd S50.12xA Contusion of left forearm, initial encounter Office Visit 03/26/2016 3:00p [facility] Jeremiah Zendejas, H81.319 Aural vertigo, Medicine - PHYSICIAN OFFICE NURSE unspecified ear [address] J02.9 Acute pharyngitis, unspecified Office Visit 02/22/2016 [facility] Internal Jeremiah Zendejas, F33.9 Major depressive 1:00p Medicine - PHYSICIAN OFFICE NURSE disorder, recurrent, [address] unspecified Office Visit 01/24/2016 [facility] Jeremiah Zendejas, G40.909 Epilepsy, unsp , not 3:40p Medicine - PHYSICIAN OFFICE NURSE intractable, without [address] status epilepticus Office Visit 01/01/2016 [facility] Jeremiah Zendejas, A09 Infectious 3:00p Medicine - PHYSICIAN OFFICE NURSE gastroenteritis and [address] colitis, unspecified R11.2 Nausea with vomiting, unspecified Office Visit 12/20/2015 2:40p [facility] Internal Jreemiah Zendejas, Z01.419 Encntr for sausage smoker Medicine - [place] PHYSICIAN OFFICE NURSE exam (general) Rd (routine) w/o abn findings [...] Otalgia, unspecified ear Office Visit 12/18/2015 1:00p [facility] Jeremiah Zendejas, G40.909 Epilepsy , unsp, Medicine - PHYSICIAN OFFICE NURSE not intractable, [address] without status epilepticus R05 Cough Office Visit 11/14/2015 3:00p [facility] Kadyni Baker, G40.909 Epilepsy, unsp, [facility] not intractable, without status epilepticus F41.9 Anxiety disorder, unspecified Office Visit 10/30/2015 3:30p [facility] Internal Jeremiah Zendejas, J01.90 Acute sinusitis, Medicine - PHYSICIAN OFFICE NURSE unspecified [address] H66.92 Otitis media, unspecified, left ear Office Visit 10/11/2015 10:00a [facility] Internal Jeremiah Zendejas, J02.9 Acute pharyngitis, Medicine - PHYSICIAN OFFICE NURSE unspecified [address] 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 Office Visit 09/13/2015 4:00p [facility] Jeremiah Zendejas, K59.1 Functional Medicine - [place] PHYSICIAN OFFICE NURSE diarrhea Rd G40.909 Epilepsy, unsp, not intractable, without status epilepticus Office Visit 08/14/2015 11:30a [facility] Internal Jeremiah Zendejas, N92.6 Irregular Medicine - PHYSICIAN OFFICE NURSE menstruation, [address] unspecified R35.0 Frequency of micturition Office Visit 06/22/2015 2:30p [facility] Jeremiah Zendejas, 522.0 Pulpitis Medicine - PHYSICIAN OFFICE NURSE [address] Office Visit 06/13/2015 3:00p [facility] Jeremiah Zendejas, 345.90 Epilepsy Unspec Medicine - PHYSICIAN OFFICE NURSE W/O Intractable [address] 300.02 Anxiety Disorder Generalized 780.39 Convulsions Other 300.00 Anxiety State Unspec Office Visit 05/16/2015 10:30a [facility] Internal Jeremiah Zendejas, 462 Pharyngitis Acute Medicine - PHYSICIAN OFFICE NURSE [address] Office Visit 05/09/2015 11:00a [facility] Jeremiah Zendejas, 380.13 Ear Infection Medicine - PHYSICIAN OFFICE NURSE External Acute [address] Other 462 Pharyngitis Acute 461.1 Sinusitis Acute Frontal 786.2 Cough 784.0 Headache 380.10 Otitis Externa Infective Unspec Office Visit 03/17/2015 11:00a [facility] Jeremiah Zendejas, 780.4 Dizziness & Medicine - [place] PHYSICIAN OFFICE NURSE [address] 300.11 Conversion Disorder Office Visit 03/06/2015 2:00p [facility] Jeremiah Zendejas, 381.4 Otitis Media Acute Medicine - PHYSICIAN OFFICE NURSE Or Chronic [address] Nonsuppurative 461.1 Sinusitis Acute Frontal 784.0 Headache 780.4 Dizziness & Giddiness Office Visit 03/02/2015 EvaAlfonzo Blanco 345.90 Epilepsy Unspec 1:45p Neurologic Serv Twin Yadav M.D. W/O Intractable Concrete Curer 300.11 Conversion Disorder Office Visit 02/14/2015 11:30a [facility] Internal Jeremiah Zendejas, 780.4 Dizziness & Medicine - [place] PHYSICIAN OFFICE NURSE [address] Office Visit 02/02/2015 3:00p [facility] Jeremiah Zendejas, 698.9 Pruritic Disorder Medicine - [place] PHYSICIAN OFFICE NURSE Unspec Rd 702.8 Dermatoses Other Spec Office Visit 01/16/2015 2:30p [facility] Jeremiah Zendejas, 698.8 Pruritic Medicine - [place] PHYSICIAN OFFICE NURSE Conditions Spec Rd Other 300.02 Anxiety Disorder Generalized 698.9 Pruritic Disorder Unspec Office Visit 01/13/2015 1:30p [facility] Jeremiah Zendejas, 698.8 Pruritic Medicine - [place] PHYSICIAN OFFICE NURSE Conditions Spec Rd Other 493.10 Asthma Intrinsic Unspecified 698.9 Pruritic Disorder Unspec Office Visit 12/15/2014 Nevin Blanco 345.90 Epilepsy Unspec 2:30p Neurologic Serv Of Pablo Yadav W/O Intractable Con[employer]urer Office Visit 12/07/2014 [facility] Internal Medicine Jeremiah Zendejas, 345.90 Epilepsy Unspec 2:00p PHYSICIAN OFFICE NURSE W/O Intractable 293.83 Mood Disorder In Conditions Classified Elsewhere 372.00 Conjunctivitis Acute Unspec 268.9 Vitamin D Deficiency Unspec V77.1 Screening Diabetes Mellitus 296.90 Episodic Mood Disorder NOS Office Visit 10/11/2014 1:30p [facility] Internal Medicine Jeremiah Zendejas, PHYSICIAN OFFICE NURSE 133.0 Scabies 698.8 Pruritic Conditions Spec Other 690.18 Seborrheic Dermatitis Other Office Visit 09/26/2014 11:30a [facility] Internal Jeremiah Zendejas, 461.9 Sinusitis Acute Medicine PHYSICIAN OFFICE NURSE Unspec 786.2 Cough 311 Depressive Disorder Not Elsewhere Spec Office Visit 08/30/2014 1:30p [facility] Internal Jeremiah Surinamese, 311 Depressive Medicine PHYSICIAN OFFICE NURSE Disorder Not Elsewhere Spec 786.2 Cough Office Visit 08/22/2014 11:30a [facility] Jeremiah Surinamese, 466.0 Bronchitis Acute Medicine PHYSICIAN OFFICE NURSE 311 Depressive Disorder Not Elsewhere Spec 280.9 Iron Deficiency Anemia Unspec Office Visit 08/18/2014 Eva/Scooter Blanco 345.90 Epilepsy Unspec 9:30a Neurologic Serv Of Pablo Yadav W/O Intractable [facility] Office Visit 08/09/2014 [facility] Internal Medicine Dinorah 780.79 Malaise And 10:00a Pablo Lorenzo Fatigue Other 300.02 Anxiety Disorder Generalized 345.90 Epilepsy Unspec W/O Intractable 278.00 Obesity Unspec V17.49 Family HX Of Other Cardiovascular Diseases 268.9 Vitamin D Deficiency Unspec 493.10 Asthma Intrinsic Unspecified Office Visit 06/16/2013 3:30p [place] Aleks Blanco 345.90 Epilepsy Unspec Services Of [facility] Pablo Yadav W/O Intractable 300.02 Anxiety Disorder Generalized Office Visit 02/25/2013 11:50a [facility] Internal Yudi 345.91 Epilepsy Unspec W/ Medicine Pablo Carlin Intractable 493.90 Asthma Unspec W/O Status Asthmaticus 300.00 Anxiety State Unspec Office Visit 02/17/2013 11:15a [place] Aleks Blanco 345.90 Epilepsy Unspec Services [facility] Pablo Yadav W/O Intractable Office Visit 02/11/2013 1:00p [facility] Internal Dinorah Lorenzo 345.91 Epilepsy Unspec Medicine Pablo W/ Intractable Office Visit 11/18/2012 9:30a [facility] Fidel Muhammad 786.50 Pain Chest Unspec Of [facility] Pablo Goodwin, FACC, FASNC 785.1 Palpitations Office Visit 11/17/2012 Scooter Blanco 345.40 Local-Related 9:30a Neurologic Pablo Yadav Epilepsy W/O Services Of [facility] Mention Of Intractable Epilepsy 346.10 Migraine Common W/O Intractable W/O Status Migrainosus Office Visit 10/27/2012 11:00a [facility] Internal Tanvir 780.4 Dizziness & Medicine Pablo Vizcarra Giddiness Office Visit 09/28/2012 11:20a [facility] Tanvir 493.90 Asthma Unspec W/ O Elizabeth Vizcarra M.D. Status Asthmaticus 466.0 Bronchitis Acute Office Visit 09/07/2012 [facility] Binger 346.92 Migraine 2:40p Elizabeth Vizcarra M.D. Unspecified, W/Out Mention Intractable Migraine Office Visit 09/01/2012 [place] Clinton Blanco 345.91 Epilepsy Unspec W/ 11:00a Neurologic Pablo Yadav Intractable [facility] Office Visit 08/31/2012 [facility] Binger 427.89 Cardiac 11:40a Elizabeth Vizcarra M.D. Dysrhythmia Other 346.92 Migraine Unspecified, W/Out Mention Intractable Migraine Office Visit 08/20/2012 12:10p [facility] Yudi Carlin, 300.00 Anxiety State Medicine Pablo Unspec 493.90 Asthma Unspec W/O Status Asthmaticus 401.9 Hypertension Unspec V06.1 Berctonbfq-Hhblsaj-Iqaawgpl Combined (DTaP) Office Visit 07/20/2012 [facility] Yudi V04.81 Need For Prophylactic 11:50a Elizabeth Carlin M.D. Vaccination & Inoculation/Influenza 345.90 Epilepsy Unspec W/O Intractable 300.00 Anxiety State Unspec 493.90 Asthma Unspec W/O Status Asthmaticus 401.9 Hypertension Unspec Plan of Treatment Future Appointment(s):04/14/2019 2:00 pm - MOSHE Doherty at [facility] Internal Soldbasf84/18/2019 1:00 pm - Darion Mena NP at [place] [facility]04/29/2019 11:20 am - Donna Peguero MD at [facility] Internal Omqcwlxj28/29/2019 - JENNIFER DohertyPR03.0 Elevated blood-pressure reading, without diagnosis of hypertNew Medication:Blood Pressure Monitor Auto Inflate - use daily to monitor bp dailyComments:We discussed that your symptoms may be related to either too high or too low BP or may be caused by other problems.I am giving you a prescription for a BP cuff.Please check your BP and heart rate daily and keep a log of measurement and bring it to next visitFollow up:1 week for BPG43.009 Migraine without aura, not intractable, without status fbqasP07.6 Repeated fallsNew Medication:Walker Swivel Wheels/5 Adjustment Holes/3" 3" - use with ambulation
[2019-05-01 12:46] LABS: Alcohol < 10 mg/dL (<10)
[2019-05-01 13:02] LABS: TSH (Thyroid Stimulating Horm) 2.34 mcIU/mL (0.34-5.60)
[2019-05-01 13:33] VITALS: BP 143/92
[2019-05-01 13:38] LABS: Urine Appearance Clear; Urine Bacteria Absent (Absent); Urine Bilirubin Negative (Negative); Urine Blood 1+ (Negative); Urine Color Yellow; Urine Glucose Negative (Negative); Urine Ketones Negative (Negative); Urine Nitrite Negative (Negative); Urine Protein Negative (Negative); Urine Red Blood Cell 3+(>10/hpf) (Absent); Urine Squamous Epithelial Cell Present (Absent); Urine Urobilinogen Negative (Negative); Urine White Blood Cell Trace(0-5/hpf) (Absent)
[2019-05-01 13:49] LABS: Urine Benzodiazepine Screen None Detected (None Detect); Urine Opiates Screen None Detected (None Detect)
--- NOTE | 2019-05-04 05:48 | PN ---
Progress Note - Progress Note Date of Service: 05/04/19 Note: patient urine culture grew Klebsiella pneumonia 10-25,000 which is not a significant culture so no further treatment required at this time.
== END 2019-05-01 13:46 | disposition home or self-care (01) ==
LOC: ED 11:03
DX: R56.9 Unspecified convulsions (principal); K21.9 Gastro-esophageal reflux disease without esophagitis; F17.210 Nicotine dependence, cigarettes, uncomplicated; Z79.899 Other long term (current) drug therapy; Z88.1 Allergy status to other antibiotic agents; Z88.5 Allergy status to narcotic agent; Z88.0 Allergy status to penicillin; Z88.8 Allergy status to other drugs, medicaments and biological substances
CPT/HCPCS: 36415; 70450; 71045; 80053; 80307; 80320; 81003; 81015; 83735; 84443; 85025; 85610; 87077; 87086; 87186; 93005; 99284; G0480

== ENCOUNTER 2019-05-13 10:31 | Emergency (ER) | payer OTHER ==
--- NOTE | 2019-05-13 11:56 | ED ---
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 Pt. has a hx of seizure activity and follows with Dr. Yadav. Pt. denies recent illness, fever, cough, SOB, urinary sxs. Pt. states she was sitting in a chair today when her SO saw her head lean back and shaking. No fall or head injury. Pt. states they are currently staying at the homeless residential and this is increasing stress. Pt. notes lamictal was recently increased in ER and then decreased in neuro office. Sxs are mild- moderate in severity. No current modifying factors. - History Of Current Complaint Chief Complaint: EDSeizure Time Seen by Provider: 05/13/19 10:52 Hx Obtained From: Patient - Allergies/Home Medications Allergies/Adverse Reactions: Allergies Allergy/AdvReac Type Severity Reaction Status Date / Time blueberry Allergy Severe Hives/Diff. Verified 05/13/19 10:46 Breathing/I tching diphenhydramine Allergy Severe Swelling Verified 05/13/19 10:46 [From Benadryl] paroxetine [From Paxil] Allergy Severe Swelling Verified 05/13/19 10:46 Penicillins Allergy Severe Shortness Verified 05/13/19 10:46 of Breath watermelon Allergy Severe Hives/Diff. Verified 05/13/19 10:46 Breathing/I tching amoxicillin [From Augmentin] Allergy Intermediate Hives Verified 05/13/19 10:46 clavulanic acid Allergy Intermediate Hives Verified 05/13/19 10:46 [From Augmentin] clindamycin Allergy Intermediate Hives Verified 05/13/19 10:46 formoterol [From Dulera] Allergy Intermediate Hives Verified 05/13/19 10:46 iohexol [From Omnipaque] Allergy Intermediate Hives Verified 05/13/19 10:46 metronidazole Allergy Intermediate Hives Verified 05/13/19 10:46 sertraline [From Zoloft] Allergy Intermediate Hives Verified 05/13/19 10:46 zonisamide Allergy Intermediate Hives Verified 05/13/19 10:46 pseudoephedrine Allergy Unknown Unknown Verified 05/13/19 10:46 Reaction Details acetaminophen [From Tylenol] Allergy dilusional Verified 05/13/19 10:46 coconut Allergy Hives/Diff. Verified 05/13/19 10:46 Breathing/I tching codeine Allergy Altered Verified 05/13/19 10:46 Mental Status guaifenesin [From Mucinex] Allergy Unknown Verified 05/13/19 10:46 Reaction Details latex Allergy Hives Verified 05/13/19 10:46 lemon oil Allergy Vomiting Verified 05/13/19 10:46 morphine Allergy See Comment Verified 05/13/19 10:46 pickle Allergy Intermediate Hives/Diff. Uncoded 05/13/19 10:46 Breathing/I tching Home Medications: Home Medications lamoTRIgine TAB(*) [LaMICtal TAB(*)] 20 mg PO BEDTIME 05/13/19 [History Confirmed 05/13/19] PMH/Surg Hx/FS Hx/Imm Hx Previously Healthy: Yes Endocrine/Hematology History: Reports: Hx Diabetes - "pre diabetes", Hx Thyroid Disease, Hx Anemia Denies: Hx Unexplained Bleeding Cardiovascular History: Denies: Hx Aneurysm, Hx Angina, Hx Angioplasty, Hx Auto Implanted Cardiovert Defib, Hx Cardiac Arrest, Hx Cardiomegaly, Hx Congenital Heart Disease, Hx Congestive Heart Failure, Hx Coronary Artery Disease, Hx Deep Vein Thrombosis, Hx Embolism, Hx Hypercholesterolemia, Hx Hypotension, Hx Hypertension, Hx Myocardial Infarction, Hx Pacemaker/ICD, Hx Peripheral Vascular Disease, Hx Rheumatic Fever, Hx Syncope, Hx Valvular Heart Disease, Other Cardiovascular Problems/Disorders Respiratory History: Reports: Hx Asthma, Hx Chronic Bronchitis, Hx Chronic Obstructive Pulmonary Disease (COPD) Denies: Hx Cystic Fibrosis, Hx Lung Cancer, Hx Pleural Effusion, Hx Pneumonia , Hx Pulmonary Edema, Hx Pulmonary Embolism, Hx Seasonal Allergies, Hx Sleep Apnea, Other Respiratory Problems/Disorders GI History: Reports: Hx Gastroesophageal Reflux Disease - ON DAILY PROLOSEC Denies: Hx Gall Bladder Disease, Hx Gastrointestinal Bleed, Hx Ulcer, Hx Urosepsis History: Denies: Hx Kidney Stones, Hx Renal Disease Sensory History: Reports: Hx Contacts or Glasses Denies: Hx Cataracts, Hx Eye Injury, Hx Eye Prosthesis, Hx Glaucoma, Hx Legally Blind, Hx Macular Degeneration, Hx Vision Problem, Hx Deafness, Hx Hearing Aid, Hx Hearing Problem, Other Sensory Impairments Opthamlomology History: Reports: Hx Contacts or Glasses Denies: Hx Cataracts, Hx Eye Injury, Hx Eye Prosthesis, Hx Glaucoma, Hx Legally Blind, Hx Macular Degeneration, Hx Vision Problem, Other Sensory Impairments Neurological History: Reports: Hx Developmental Delay - 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 Mental health, Hx Bipolar Disorder Denies: Hx Post Traumatic Stress Disorder, Hx Schizophrenia, Hx Suicide Attempt, Hx Substance Abuse - Cancer History Cancer Type, Location and Year: seizure disorder - Surgical History Surgery Procedure, Year, and Place: Scalp Cystectomy May 2014, Abdominal Lipoma May 2014 Hx Anesthesia Reactions: No Infectious Disease History: No Infectious Disease History: Denies: Hx Clostridium Difficile, Hx Hepatitis, Hx Human Immunodeficiency Virus (HIV), Hx of Known/Suspected MRSA, Hx Shingles, Hx Tuberculosis, Hx Known/ Suspected VRE, Hx Known/Suspected VRSA, History Other Infectious Disease, Traveled Outside the in Last 30 Days - Family History Known Family History: Positive: Cardiac Disease, Diabetes Negative: Renal Disease, Seizure Disorder - Social History Alcohol Use: None Hx Substance Use: No Substance Use Type: Reports: None Hx Tobacco Use: Yes Smoking Status (MU): Former Smoker Type: Cigarettes Have You Smoked in the Last Year: No Review of Systems Constitutional: Negative Negative: Fever, Chills Eyes: Negative ENT: Negative Cardiovascular: Negative Respiratory: Negative Gastrointestinal: Negative Genitourinary: Negative Musculoskeletal: Negative Skin: Negative Neurological: Other - seizure Negative: Headache All Other Systems Reviewed And Are Negative: Yes Physical Exam Triage Information Reviewed: Yes Vital Signs On Initial Exam: Initial Vitals Temp Pulse Resp BP Pulse Ox 99.2 F 92 16 142/77 97 05/13/19 10:41 05/13/19 10:41 05/13/19 10:41 05/13/19 10:41 05/13/19 10:41 Vital Signs Reviewed: Yes Appearance: Positive: Well-Appearing - Pt. sitting on bed in NAD. Morbidly obese. SO present. Skin: Positive: Warm, Dry Head/Face: Positive: Normal Head/Face Inspection Eyes: Positive: Normal, EOMI, SHANNON, Conjunctiva Clear Neck: Positive: Supple Respiratory/Lung Sounds: Positive: Clear to Auscultation, Breath Sounds Present Cardiovascular: Positive: Normal, RRR Musculoskeletal: Positive: Normal, Strength/ROM Intact Neurological: Positive: Normal, Alert, Oriented to Person Place, Time, CN Intact II-III Psychiatric: Positive: Affect/Mood Appropriate - Stevenson Coma Scale Best Eye Response: 4 - Spontaneous Best Motor Response: 6 - Obeys Commands Best Verbal Response: 5 - Oriented Coma Scale Total: 15 Diagnostics - Vital Signs Vital Signs Temp Pulse Resp BP Pulse Ox 05/13/19 11:34 97 05/13/19 11:15 90 17 113/70 97 05/13/19 10:41 99.2 F 92 16 142/77 97 - Laboratory Result Diagrams: 05/13/19 12:20 05/13/19 12:20 Lab Statement: Any lab studies that have been ordered have been reviewed, and results considered in the medical decision making process. Course/Dx - Course Course Of Treatment: Pt. presenting after possible seizure activity. Pt. full awake, alert, and O x 3. Pt. is not postictal. Afebrile with stable VS. ECG done at 1131 shows a sinus rhythm of 90 bpm, normal axis, no ST elevation or depression. Labs unremarkable. Lamictal level from 05/10 is therapeutic. Case discussed with Dr. Yadav who recommends no change in medication. Pt. has had no seizure activity in the ER. DC home. Pt. asking for note to deem her medically unstable to stay in residential so that she can get a hotel. steamtable worker consulted, Rossana, who notes social service office provides this and is not open today. Pt will f.u outpt. - Diagnoses Differential Diagnosis/HQI/PQRI: Positive: Metabolic Disorder, Known Seizure Disorder Provider Diagnoses: Seizure-like activity Discharge - Sign-Out/Discharge Documenting (check all that apply): Patient Departure Patient Received Moderate/Deep Sedation with Procedure: No - Discharge Plan Condition: Good Disposition: HOME Patient Education Materials: Recurrent Seizures in Adults (ED) Referrals: Jose Bell NP [Primary Care Provider] - Clinton Yadav MD [Medical Doctor] - Additional Instructions: Follow up with Dr. Yadav as scheduled Continue home medications as directed Return to ER if symptoms change or worsen - Billing Disposition and Condition Condition: GOOD Disposition: Home
[2019-05-13 11:59] LABS: Urine Appearance Cloudy; Urine Bilirubin Negative (Negative); Urine Blood Negative (Negative); Urine Color Yellow; Urine Glucose Negative (Negative); Urine Ketones Negative (Negative); Urine Nitrite Negative (Negative); Urine Protein Negative (Negative); Urine Specific Gravity 1.017 (1.010-1.030); Urine Urobilinogen Negative (Negative)
[2019-05-13 12:27] LABS: ABS Basophils 0.1 10^3/ul (0-0.2); ABS Eosinophils 0.2 10^3/ul (0-0.6); ABS Monocytes 0.5 10^3/ul (0-0.8); ABS Neutrophils 5.7 10^3/ul (1.5-7.7); Eosinophil % 2.7 %; Hematocrit 37 % (35-47); Hemoglobin 12.7 g/dL (12.0-16.0); Lymphocyte % 23.2 %; Mean Corpuscular HGB Conc 34 g/dL (31-36); Mean Corpuscular Hemoglobin 33 pg (27-31); Mean Corpuscular Volume 97 fL (80-97); Mean Platelet Volume 7.1 fL (7.4-10.4); Platelet Count 301 10^3/uL (150-450); Red Cell Distribution Width 14 % (10-15); White Blood Count 8.5 10^3/uL (3.5-10.8)
[2019-05-13 12:45] LABS: ALT 17 U/L (7-52); AST 16 U/L (13-39); Albumin/Globulin Ratio 1.5 (1-3); Alkaline Phosphatase 76 U/L (34-104); Anion Gap 5 mmol/L (2-11); BUN/Creatinine Ratio 15.6 (8-20); Blood Urea Nitrogen 12 mg/dL (6-24); CO2 Carbon Dioxide 26 mmol/L (22-32); Calcium 9.3 mg/dL (8.6-10.3); Chloride 106 mmol/L (101-111); EGFR African American 102.1 (>60); EGFR Non-African American 84.4 (>60); Globulin 2.6 g/dL (2-4); Glucose 130 mg/dL (70-100); Magnesium 1.8 mg/dL (1.9-2.7); Potassium 4.1 mmol/L (3.5-5.0); Sodium 137 mmol/L (135-145); Total Protein 6.6 g/dL (6.4-8.9)
[2019-05-13 12:51] LABS: HCG Pregnancy < 0.60 mIU/mL
[2019-05-13 13:19] VITALS: BP 141/79
== END 2019-05-13 13:18 | disposition home or self-care (01) ==
LOC: ED 10:31
DX: R56.9 Unspecified convulsions (principal); R73.03 Prediabetes; K21.9 Gastro-esophageal reflux disease without esophagitis; G43.909 Migraine, unspecified, not intractable, without status migrainosus; F41.9 Anxiety disorder, unspecified; Z88.6 Allergy status to analgesic agent; Z88.1 Allergy status to other antibiotic agents; Z91.041 Radiographic dye allergy status; Z91.040 Latex allergy status; Z88.5 Allergy status to narcotic agent; Z88.0 Allergy status to penicillin; Z91.018 Allergy to other foods; Z91.048 Other nonmedicinal substance allergy status; Z87.891 Personal history of nicotine dependence
CPT/HCPCS: 36415; 80053; 81003; 83605; 83735; 84702; 85025; 93005; 99283

== ENCOUNTER 2019-08-25 12:27 | Emergency (ER) | payer OTHER ==
--- OUTSIDE RECORDS SUMMARY | 2019-08-25 12:33 | XMS REPORT | Continuity of Care Document ---
:1980 External Reference #:[id number] Author Name Darion Mena NP (transmitted by agent of provider Wendy Murphy) Address [address] [facility], [place] [address] Care Team Providers Name Role Phone Sari Vazquez MD - Dermatology Care Team Information Undercover Cop Fatoumata Pritchard MD - Psychiatry Care Team Information Undercover Cop [phone] Hernando Marin MD - Allergy & Care Team Information Undercover Cop [phone] Immunology Eron Manning MD - Care Team Information Undercover Cop [phone] Otolaryngology Yossi Lagos MD - Surgery Care Team Information Undercover Cop [phone] [facility] [place] [facility] - [place] Care Team Information Undercover Cop [phone] [facility] Living - Care Team Information Undercover Cop Admitting Interviewer Comfort Oliver MD - Internal Care Team Information Undercover Cop Medicine Problems Active Problems Provider Date Epilepsy Yudi [...] Morbid obesity Tanvir Vizcarra M.D. 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 Onset: 2018 Social History Type Date Description Comments Sex Unknown ETOH Use 01/21/2018 Denies alcohol use Tobacco Use Start: Unknown End: Unknown Patient is a former smoker Recreational Drug Use Denies Drug Use Smoking Status Reviewed: 06/30/19 Patient is a former smoker Allergies, Adverse [...] Medications SIG Qnty Indications Ordering Date Provider Vitamin D3 1 by mouth every 90tabs E55.9 Zsofia Ray, 06/23/2019 1000Unit day CHIEF GUARD Tablets Doxepin HCL take two caps by 60caps G43.009 Clinton Blanco 06/21/2019 50mg mouth at night. Pablo Yadav Capsules Meclizine HCL one tablet twice a 60tabs Jose Morochok, 05/10/2019 25mg day if too [employer] GUARD Tablets sedating reduce to one every night at bedtime Aimovig inject sq once a 1ml Clinton Blanco 05/07/2019 70mg/ml month Pablo Yadav Solution Auto-Inject Blood Pressure use daily to 1units G43.009 Jose Morochok, 04/07/2019 Monitor Auto monitor bp daily [employer]ARD Inflate Misc Walker Swivel use with 1units R29.6 Jose Ray, 04/07/2019 Wheels/5 Adjustment ambulation CHIEF GUARD Holes/3" 3" Misc Prednisone 3 tabs for 1 day 6tabs Clinton Blanco 04/07/2019 20mg then 2 tabs for 1 Pablo Yadav Tablets day then 1 tab for 1 day Lamotrigine take 2 tab by 120tabs Clinton Blanco 01/15/2019 200mg mouth in the Pablo Yadav Tablets morning and take 2 tabs at bedtime. Trueplus Lancets 30G use to test 100units Andreajanamagaly Morochok, 12/31/2018 Ultra Thin CHIEF GUARD 30G Misc Fluticasone use 2 sprays in 16units J01.90 Jose Bell, 10/21/2018 Propionate each nostril one CHIEF GUARD 50mcg/Act time a day Suspension Robitussin 12 Hour 5 milliliters by 89ml R05 Jose Bell, 10/21/2018 Cough Relief mouth twice a day CHIEF GUARD 30mg/5ML as needed Suer Nasal [place] 12 Hour 2 sprays each 30ml J01.90 Jose Bell, 10/21/2018 nostril 2x daily CHIEF GUARD 0.05% Solution as needed for congestion True Focus Self test blood twice 100units Tawny Ferrari MD 08/17/2018 Monitoring Blood daily Glucose Test Strips Strips True Metrix Go Blood use daily as 1units Jose Bell, 08/17/2018 Glucose Meter directed last [employer] GUARD visit: 10/10/18 w/Device Kit Ventolin HFA 2 puffs by mouth 8gm J45.30 Jose Bell, 07/15/2018 four times a day CHIEF GUARD 108(90Base) mcg/Act as needed Aerosol Citalopram take one tablet by 30tabs [facility], 03/12/2018 Hydrobromide mouth every day CHIEF GUARD 40mg Tablets Ibuprofen take one tablet 90tabs AndreaWahandamagaly Bell, 06/24/2016 800mg daily as needed. CHIEF GUARD Tablets Omeprazole take one capsule 30caps K21.9 AndreaWahandamagaly Bell, 09/15/2015 20mg by mouth every day CHIEF GUARD Capsules DR PETERSON Cetirizine HCL 1 by mouth every 30tabs Cuedofimagaly Bell, 03/31/2015 day CHIEF GUARD 10mg Tablets Ferrous Gluconate take one tablet by 180tabs D50.9 [facility] [place], 2013 mouth twice daily CHIEF GUARD 324(38Fe) mg Tablets Albuterol Sulfate inhale the 100units [facility], 11/02/2012 contents of one CHIEF GUARD (2.5mg/3ML) 0.083% vial via nebulizer Nebulizer every 4 to 6 hours as needed Levothyroxine Sodium 1 by mouth every 90tabs E03.9 [facility] Bell, 00/ day CHIEF GUARD 75mcg Tablets History Medications Doxepin HCL 60caps Clinton Blanco 05/26/2019 - 25mg Pablo Yadav 06/21/2019 Capsules Emgality inject 2 pens for 1ml Clinton Blanco 05/04/2019 - 120mg/ml the first dose Pablo Yadav 05/07/2019 Solution Auto-Inject than 1 pen monthly (first dose will be 2 ml) Lamotrigine 1 tab by mouth in 30tabs Clinton Blanco 05/03/2019 - 25mg the PM, (take with Pablo Yadav 05/17/2019 Tablets PM dose of 400 MG Lamotrigine for a total of 425 MG in the PM) Aimovig inject sq once a 1ml G43.009 Clinton SBryant 04/27/2019 - 70mg/ml month Pablo Yadav 04/27/2019 Solution Auto-Inject Aimovig inject sq once a 1ml Clinton Bella 04/27/2019 - 70mg/ml month Pablo Yadav 05/03/2019 Solution Auto-Inject Hydroxyzine HCL Take one tab by 60tabs Clinton Blanco 04/01/2019 - 50mg mouth twice a day, Pablo Yadav 04/07/2019 Tablets as needed Ketorolac take one tab by 20tabs Jose Bell, 04/01/2019 - Tromethamine mouth every 4-6 CHIEF [employer]ARD 04/06/2019 10mg hours, as needed Tablets for severe migraine for five days. max 4 doses a day. take with food. Lamotrigine Starting 03/26, 14tabs Clinton Blanco 03/11/2019 - 100mg take one tab by Pablo Yadav 04/07/2019 Tablets mouth with 200 mg dose in the morning (total of 300 mg in the morning) for two weeks. Lamotrigine take one tab by 7tabs Clinton Blanco 03/10/2019 - 100mg mouth with 200 mg Pablo Yadav 03/11/2019 Tablets Dispers dose in the morning (total of 300 mg in the morning) for one week. Doxepin HCL Take one capsule 30caps G43.909 Clinton S. 03/10/2019 - 50mg at night. Pablo Yadav 03/10/2019 Capsules Doxepin HCL take one cap by 30caps G43.009 Clinton S. 03/10/2019 - 50mg mouth at night. Pablo Yadav 06/21/2019 Capsules Zyrtec Allergy take one tablet by 30caps J30.9 Jose Bell, 02/17/2019 - 10mg mouth in the CHIEF GUARD 04/26/2019 Capsules evening Vitamin D3 Adult take 1 chewtab 90units R42 Tawny Ferrari MD 01/19/2019 - Gummies daily 02/17/2019 1000Unit Chewtabs Immunizations CPT Code Status Date Vaccine Reaction Lot # [id number] Given 08/19/2018 Influenza Virus Vaccine, [id number] Quadrivalent, Split, Preservative Free [id number] Given 07/28/2018 Influenza Virus Vaccine, Quadrivalent, Split, Preservative Free 90107 Given 07/28/2018 Influenza Virus Vaccine, Quadrivalent, Split, Preservative Free 15812 Given 01/21/2018 Influenza Virus Vaccine, [id number] Quadrivalent, Split, Preservative Free 89501 Given 10/16/2017 Pneumonia Vaccine no reaction, pt [id number] tolerated well Q2035 Given 10/16/2015 Afluria Vaccine [id number] Given 08/20/2012 Tdap - [id number] Tetanus/Diptheria/Acellula r Pertussis Q2038 Given 07/20/2012 Fluzone Vaccine [id number] Ordered 07/04/2016 Afluria Vaccine Vital Signs Date Vital Result Comment 06/30/2019 2:28pm Height 67 inches 5'7" Weight 366.00 lb Heart Rate 86 /min BP Systolic 140 mmHg BP Diastolic 88 mmHg BMI (Body Mass Index) 57.3 kg/m2 06/23/2019 1:57pm Height 67 inches 5'7" Weight 371.00 lb Heart Rate 84 /min BP Systolic Sitting 124 mmHg BP Diastolic Sitting 78 mmHg BMI (Body Mass Index) 58.1 kg/m2 Results Test Date Facility Test Result H/L Range Note Urinalysis Profile 05/13/2019 [facility] Urine Color Yellow [facility] [place] [address] [phone] Urine Appearance Cloudy Urine Specific Bowler 1.017 Normal 1.010-1.030 Urine pH 7.0 Normal 5-9 Urine Urobilinogen Negative Negative Urine Ketones Negative Negative Urine Protein Negative Negative Urine Leukocytes Negative Negative Urine Blood Negative Negative Urine Nitrite Negative Negative Urine Bilirubin Negative Negative Urine Glucose Negative Negative Laboratory test 05/13/2019 [facility] Lactic Acid 1.4 mmol/L Normal 0.5-2.0 1 [place] [address] [phone] CBC Auto Diff 05/13/2019 [facility] White Blood 8.5 10^3/uL Normal 3.5-10.8 [address] [place] [address] [phone] Red Blood Count 3.80 10^6/uL Normal 3.70-4.87 Hemoglobin 12.7 g/dL Normal 12.0-16.0 Hematocrit 37 % Normal 35-47 Mean Corpuscular Volume 97 fL Normal 80-97 Mean Corpuscular Hemoglobin 33 pg High 27-31 Mean Corpuscular HGB Conc 34 g/dL Normal 31-36 Red Cell Distribution Width 14 % Normal 10-15 Platelet Count 301 10^3/uL Normal 150-450 Mean Platelet Volume 7.1 fL Low 7.4-10.4 Abs Neutrophils 5.7 10^3/uL Normal 1.5-7.7 Abs Lymphocytes 2.0 10^3/uL Normal 1.0-4.8 Abs Monocytes 0.5 10^3/uL Normal 0-0.8 Abs Eosinophils 0.2 10^3/uL Normal 0-0.6 Abs Basophils 0.1 10^3/uL Normal 0-0.2 Abs Nucleated RBC 0.0 10^3/uL Granulocyte % 67.9 % Lymphocyte % 23.2 % Monocyte % 5.6 % Eosinophil % 2.7 % Basophil % 0.6 % Nucleated Red Blood Cells % 0.0 Comp Metabolic 05/13/2019 [facility] Sodium 137 mmol/L Normal 135-145 Panel [address] [place] [address] [phone] Potassium 4.1 mmol/L Normal 3.5-5.0 Chloride 106 mmol/L Normal 101-111 Co2 Carbon Dioxide 26 mmol/L Normal 22-32 Anion Gap 5 mmol/L Normal 2-11 Glucose 130 mg/dL High 70-100 Blood Urea Nitrogen 12 mg/dL Normal 6-24 Creatinine 0.77 mg/dL Normal 0.51-0.95 BUN/Creatinine Ratio 15.6 Normal 8-20 Calcium 9.3 mg/dL Normal 8.6-10.3 Total Protein 6.6 g/dL Normal 6.4-8.9 Albumin 4.0 g/dL Normal 3.2-5.2 Globulin 2.6 g/dL Normal 2-4 Albumin/Globulin Ratio 1.5 Normal 1-3 Total Bilirubin 0.40 mg/dL Normal 0.2-1.0 Alkaline Phosphatase 76 U/L Normal 34-104 Alt 17 U/L Normal 7-52 Ast 16 U/L Normal 13-39 Egfr Non- 84.4 >60 Egfr 102.1 >60 2 Laboratory test 05/13/2019 [facility] Magnesium 1.8 mg/dL Low 1.9-2.[address] [place] [address] [phone] HCG < 0.60 mIU/mL 3 Laboratory test 05/10/2019 [facility] Lamotrigine 10.8 g/mL 2.5 - [address] (Lamictal) 15.0 [place] [address] [phone] Urine Culture And 05/01/2019 [facility] Urine Culture SEE RESULT [address] [place] [address] [phone] Urine Drug SCR ED 05/01/2019 [facility] Urine None None [facility] [address] [place] [address] Screen [phone] Urine Barbiturates Screen None Detected None Detect Urine Benzodiazepine Screen None Detected None Detect Urine Cannabinoids Screen None Detected None Detect Urine Cocaine Screen None Detected None Detect Urine Opiates Screen None Detected None Detect Urine Phencyclidine Screen None Detected None Detect 6 Urinalysis Profile 05/01/2019 [facility] Urine Color Yellow [address] [place] [address] [phone] Urine Appearance Clear Urine Specific Bowler 1.020 Normal 1.010-1.030 Urine pH 7.0 Normal 5-9 Urine Urobilinogen Negative Negative Urine Ketones Negative Negative Urine Protein Negative Negative Urine Leukocytes Negative Negative Urine Blood 1+ Abnormal Negative Urine Nitrite Negative Negative Urine Bilirubin Negative Negative Urine Glucose Negative Negative Urine White Blood Cell Trace(0-5/hpf) Absent Urine Red Blood Cell 3+(>10/hpf) Abnormal Absent Urine Bacteria Absent Absent Urine Squamous Epithelial Cell Present Abnormal Absent Laboratory test 05/01/2019 [facility] Magnesium 2.0 mg/dL Normal 1.9-2.[address] [place] [address] [phone] Alcohol < 10 mg/dL Normal <10 TSH (Thyroid Stim Horm) 2.34 mcIU/mL Normal 0.34-5.60 Comp Metabolic 05/01/2019 [facility] Sodium 140 mmol/L Normal 135-[address] [place] [address] [phone] Potassium 4.4 mmol/L Normal 3.5-5.0 Chloride 107 mmol/L Normal 101-111 Co2 Carbon Dioxide 25 mmol/L Normal 22-32 Anion Gap 8 mmol/L Normal 2-11 Glucose 131 mg/dL High 70-100 Blood Urea Nitrogen 12 mg/dL Normal 6-24 Creatinine 0.81 mg/dL Normal 0.51-0.95 BUN/Creatinine Ratio 14.8 Normal 8-20 Calcium 9.6 mg/dL Normal 8.6-10.3 Total Protein 7.3 g/dL Normal 6.4-8.9 Albumin 4.3 g/dL Normal 3.2-5.2 Globulin 3.0 g/dL Normal 2-4 Albumin/Globulin Ratio 1.4 Normal 1-3 Total Bilirubin 0.40 mg/dL Normal 0.2-1.0 Alkaline Phosphatase 80 U/L Normal 34-104 Alt 19 U/L Normal 7-52 Ast 19 U/L Normal 13-39 Egfr Non- 79.6 >60 Egfr 96.3 >60 7 CBC Auto 05/01/2019 [facility] White Blood 8.3 10^3/uL Normal 3.5-10.[address] [place] [address] [phone] Red Blood Count 3.93 10^6/uL Normal 3.70-4.87 Hemoglobin 13.2 g/dL Normal 12.0-16.0 Hematocrit 38 % Normal 35-47 Mean Corpuscular Volume 97 fL Normal 80-97 Mean Corpuscular Hemoglobin 34 pg High 27-31 Mean Corpuscular HGB Conc 35 g/dL Normal 31-36 Red Cell Distribution Width 14 % Normal 10-15 Platelet Count 348 10^3/uL Normal 150-450 Mean Platelet Volume 7.2 fL Low 7.4-10.4 Abs Neutrophils 5.2 10^3/uL Normal 1.5-7.7 Abs Lymphocytes 2.2 10^3/uL Normal 1.0-4.8 Abs Monocytes 0.5 10^3/uL Normal 0-0.8 Abs Eosinophils 0.3 10^3/uL Normal 0-0.6 Abs Basophils 0.1 10^3/uL Normal 0-0.2 Abs Nucleated RBC 0.0 10^3/uL Granulocyte % 63.1 % Lymphocyte % 27.2 % Monocyte % 5.5 % Eosinophil % 3.1 % Basophil % 1.1 % Nucleated Red Blood Cells % 0.1 Inr/Protime 05/01/2019 [facility] Inr 1.00 Normal 0.82-1.[address] [place] [address] [phone] Urinalysis 04/03/2019 [facility] Urine Yellow Profile [address] [place] [address] [phone] Urine Appearance Cloudy Urine Specific Bowler 1.014 Normal 1.010-1.030 Urine pH 7.0 Normal 5-9 Urine Urobilinogen Negative Negative Urine Ketones Negative Negative Urine Protein Negative Negative Urine Leukocytes 1+ Abnormal Negative Urine Blood 1+ Abnormal Negative Urine Nitrite Negative Negative Urine Bilirubin Negative Negative Urine Glucose Negative Negative Urine White Blood Cell Trace(0-5/hpf) Absent Urine Red Blood Cell Absent Absent Urine Bacteria Absent Absent Urine Squamous Epithelial Cell Present Abnormal Absent Urine Culture And 04/03/2019 [facility] Urine SEE RESULT [address] [place] [place] [address] [phone] CBC Auto Diff 04/03/2019 [facility] White Blood 7.8 10^3/uL Normal 3.5-[address] Count 0.8 [place] [address] [phone] Red Blood Count 4.08 10^6/uL Normal 3.70-4.87 Hemoglobin 13.3 g/dL Normal 12.0-16.0 Hematocrit 40 % Normal 35-47 Mean Corpuscular Volume 97 fL Normal 80-97 Mean Corpuscular Hemoglobin 33 pg High 27-31 Mean Corpuscular HGB Conc 33 g/dL Normal 31-36 Red Cell Distribution Width 13 % Normal 10.5-15 Platelet Count 336 10^3/uL Normal 150-450 Mean Platelet Volume 7.1 fL Low 7.4-10.4 Abs Neutrophils 5.1 10^3/uL Normal 1.5-7.7 Abs Lymphocytes 1.9 10^3/uL Normal 1.0-4.8 Abs Monocytes 0.4 10^3/uL Normal 0-0.8 Abs Eosinophils 0.3 10^3/uL Normal 0-0.6 Abs Basophils 0.1 10^3/uL Normal 0-0.2 Abs Nucleated RBC 0.0 10^3/uL Granulocyte % 65.5 % Lymphocyte % 24.5 % Monocyte % 5.6 % Eosinophil % 3.5 % Basophil % 0.9 % Nucleated Red Blood Cells % 0.1 Comp Metabolic 04/03/2019 [facility] Sodium 137 mmol/L Normal 135-[address] [place] [address] [phone] Potassium 4.3 mmol/L Normal 3.5-5.0 Chloride 105 mmol/L Normal 101-111 Co2 Carbon Dioxide 25 mmol/L Normal 22-32 Anion Gap 7 mmol/L Normal 2-11 Glucose 136 mg/dL High 70-100 Blood Urea Nitrogen 12 mg/dL Normal 6-24 Creatinine 0.76 mg/dL Normal 0.51-0.95 BUN/Creatinine Ratio 15.8 Normal 8-20 Calcium 9.5 mg/dL Normal 8.6-10.3 Total Protein 7.2 g/dL Normal 6.4-8.9 Albumin 4.3 g/dL Normal 3.2-5.2 Globulin 2.9 g/dL Normal 2-4 Albumin/Globulin Ratio 1.5 Normal 1-3 Total Bilirubin 0.40 mg/dL Normal 0.2-1.0 Alkaline Phosphatase 77 U/L Normal 34-104 Alt 17 U/L Normal 7-52 Ast 18 U/L Normal 13-39 Egfr Non- 85.6 >60 Egfr 103.6 >60 10 Laboratory test 04/03/2019 [facility] HCG < 0.60 [address] mIU/[place] [address] [phone] Urine Culture And 02/13/2019 [facility] Urine Culture SEE RESULT [address] [place] [address] [phone] Urinalysis Profile 02/13/2019 [facility] Urine Color Yellow [address] [place] [address] [phone] Urine Appearance Cloudy Urine Specific Bowler 1.020 Normal 1.010-1.030 Urine pH 7.0 Normal 5-9 Urine Urobilinogen Negative Negative Urine Ketones Negative Negative Urine Protein Negative Negative Urine Leukocytes 1+ Abnormal Negative Urine Blood Negative Negative * * Abnormal Negative 13 Urine Nitrite Negative Negative Urine Bilirubin Negative Negative Urine Glucose Negative Negative Urine White Blood Cell 1+(6-10/hpf) Abnormal Absent Urine Red Blood Cell Absent Absent Urine Bacteria Absent Absent Urine Squamous Epithelial Cell Present Abnormal Absent Laboratory test 02/13/2019 [facility] HCG < 0.60 mIU/ mL [address] [place] [address] [phone] Lamotrigine (Lamictal) 8.3 g/mL 2.5 - 15.0 15 Basic Metabolic 02/13/2019 [facility] Sodium 140 mmol/L Normal 135-[address] [place] [address] [phone] Potassium 4.5 mmol/L Normal 3.5-5.0 Chloride 106 mmol/L Normal 101-111 Co2 Carbon Dioxide 27 mmol/L Normal 22-32 Anion Gap 7 mmol/L Normal 2-11 Glucose 115 mg/dL High 70-100 Blood Urea Nitrogen 10 mg/dL Normal 6-24 Creatinine 0.65 mg/dL Normal 0.51-0.95 BUN/Creatinine Ratio 15.4 Normal 8-20 Calcium 9.3 mg/dL Normal 8.6-10.3 Egfr Non- 102.6 >60 Egfr 124.1 >60 16 CBC Auto 02/13/2019 [facility] White Blood 8.4 10^3/uL Normal 3.5-10.[address] [place] [address] [phone] Red Blood Count 4.17 10^6/uL Normal 3.70-4.87 Hemoglobin 13.8 g/dL Normal 12.0-16.0 Hematocrit 41 % Normal 33-41 Mean Corpuscular Volume 97 fL Normal 80-97 Mean Corpuscular Hemoglobin 33 pg High 27-31 Mean Corpuscular HGB Conc 34 g/dL Normal 31-36 Red Cell Distribution Width 14 % Normal 10.5-15 Platelet Count 305 10^3/uL Normal 150-450 Mean Platelet Volume 7.4 fL Normal 7.4-10.4 Abs Neutrophils 5.4 10^3/uL Normal 1.5-7.7 Abs Lymphocytes 2.0 10^3/uL Normal 1.0-4.8 Abs Monocytes 0.5 10^3/uL Normal 0-0.8 Abs Eosinophils 0.3 10^3/uL Normal 0-0.6 Abs Basophils 0.1 10^3/uL Normal 0-0.2 Abs Nucleated RBC 0 10^3/uL Granulocyte % 64.7 % Lymphocyte % 24.5 % Monocyte % 6.3 % Eosinophil % 3.5 % Basophil % 1.0 % Nucleated Red Blood Cells % 0.1 Laboratory 02/13/2019 [facility] TSH (Thyroid 3.55 Normal 0.34 -5.60 test finding [address] Stim Horm) mcIU/[place] [address] [phone] Rapid 01/30/2019 [facility] Influenza A NEGATIVE Negative 17 Influenza A & [address] [place] [address] [phone] Influenza B Molecular NEGATIVE Negative Laboratory test 01/30/2019 [facility] Rapid SEE RESULT [address] [place] [address] Antigen [phone] Urine Culture And 01/17/2019 [facility] Urine Culture SEE RESULT [address] [place] [address] [phone] Laboratory test 01/17/2019 [facility] Magnesium 1.8 mg/dL Low 1.9-[address] .7 [place] [address] [phone] Creatine Kinase(CK) 84 U/L Normal 10-223 Alcohol < 10 mg/dL Normal <10 TSH (Thyroid Stim Horm) 3.86 mcIU/mL Normal 0.34-5.60 HCG < 0.60 mIU/mL 20 Comp Metabolic 01/17/2019 [facility] Sodium 138 mmol/L Normal 135-[address] [place] [address] [phone] Potassium 4.0 mmol/L Normal 3.5-5.0 Chloride 105 mmol/L Normal 101-111 Co2 Carbon Dioxide 26 mmol/L Normal 22-32 Anion Gap 7 mmol/L Normal 2-11 Glucose 108 mg/dL High 70-100 Blood Urea Nitrogen 12 mg/dL Normal 6-24 Creatinine 0.72 mg/dL Normal 0.51-0.95 BUN/Creatinine Ratio 16.7 Normal 8-20 Calcium 9.2 mg/dL Normal 8.6-10.3 Total Protein 6.7 g/dL Normal 6.4-8.9 Albumin 4.1 g/dL Normal 3.2-5.2 Globulin 2.6 g/dL Normal 2-4 Albumin/Globulin Ratio 1.6 Normal 1-3 Total Bilirubin 0.40 mg/dL Normal 0.2-1.0 Alkaline Phosphatase 69 U/L Normal 34-104 Alt 14 U/L Normal 7-52 Ast 16 U/L Normal 13-39 Egfr Non- 91.1 >60 Egfr 110.3 >60 21 Laboratory test 01/17/2019 [facility] Lactic Acid 1.8 mmol/L Normal 0.5-2.[address] [place], [place] [address] [phone] CBC Auto Diff 01/17/2019 [facility] White Blood 7.7 Normal 3.5 -10.[address] Count 10^3/[place] [address] [phone] Red Blood Count 3.97 10^6/uL Low 4.00-5.40 Hemoglobin 13.2 g/dL Normal 12.0-16.0 Hematocrit 39 % Normal 35-47 Mean Corpuscular Volume 98 fL High 80-97 Mean Corpuscular Hemoglobin 33 pg High 27-31 Mean Corpuscular HGB Conc 34 g/dL Normal 31-36 Red Cell Distribution Width 14 % Normal 10.5-15 Platelet Count 290 10^3/uL Normal 150-450 Mean Platelet Volume 7.7 fL Normal 7.4-10.4 Abs Neutrophils 4.8 10^3/uL Normal 1.5-7.7 Abs Lymphocytes 2.1 10^3/uL Normal 1.0-4.8 Abs Monocytes 0.5 10^3/uL Normal 0-0.8 Abs Eosinophils 0.2 10^3/uL Normal 0-0.6 Abs Basophils 0.1 10^3/uL Normal 0-0.2 Abs Nucleated RBC 0 10^3/uL Granulocyte % 62.4 % Lymphocyte % 27.0 % Monocyte % 6.5 % Eosinophil % 2.9 % Basophil % 1.2 % Nucleated Red Blood Cells % 0 Laboratory test 01/17/2019 [facility] Partial 28.7 Normal 26.0 -36.[address] [place] [address] Time PTT [phone] Inr/Protime 01/17/2019 [facility] Inr 0.96 Normal 0.77-1.[address] [place] [address] [phone] Urinalysis 01/17/2019 [facility] Urine Color Yellow [place] [address] [place] [address] [phone] Urine Appearance Cloudy Urine Specific Bowler 1.017 Normal 1.010-1.030 Urine pH 6.0 Normal 5-9 Urine Urobilinogen Negative Negative Urine Ketones Negative Negative Urine Protein Negative Negative Urine Leukocytes 1+ Abnormal Negative Urine Blood Negative Negative * * Abnormal Negative 23 Urine Nitrite Negative Negative Urine Bilirubin Negative Negative Urine Glucose Negative Negative Urine White Blood Cell 1+(6-10/hpf) Abnormal Absent Urine Red Blood Cell Trace(0-2/hpf) Absent Urine Bacteria Absent Absent Urine Squamous Epithelial Cell Present Abnormal Absent Urine Drug 01/17/2019 [facility] Amphetamine Ur None Detected None Detect SCR ED & [address] Screen Pain Clinic [place], [place] [id number] [phone] Barbiturates Urine Screen None Detected None Detect Benzodiazepine Urine Screen None Detected None Detect Urine Cannabinoids Screen None Detected None Detect Urine Cocaine Screen None Detected None Detect Urine Opiates Screen None Detected None Detect Urine Phencyclidine Screen None Detected None Detect 24 Urine Culture And 01/04/2019 [facility] Urine SEE RESULT 25 , [address] [place] [place] [address] [phone] Poc Urinalysis 01/04/2019 [facility] Poc Negative Negative [address] Glucose, [place] [address] Urine [phone] Poc Bilirubin, Urine Negative Negative Poc Ketone, Urine Negative Negative Poc Specific Bowler, Urine 1.020 Normal 1.010-1.030 Poc Blood, Urine 1+ Abnormal Negative Poc pH, Urine 7.5 Normal 5-9 Poc Protein, Urine Negative Negative Poc Urobilinogen, Urine 0.2 Negative Poc Nitrite, Urine Negative Negative Poc Leukocytes, Urine 3+ Abnormal Negative Poc Color, Urine Yellow Poc Clarity, Urine Clear 27 CBC Auto 01/04/2019 [facility] White Blood 6.9 10^3/uL Normal 3.5-10.[address] [place] [address] [phone] Red Blood Count 4.16 10^6/uL Normal 4.00-5.40 Hemoglobin 13.7 g/dL Normal 12.0-16.0 Hematocrit 41 % Normal 35-47 Mean Corpuscular Volume 98 fL High 80-97 Mean Corpuscular Hemoglobin 33 pg High 27-31 Mean Corpuscular HGB Conc 34 g/dL Normal 31-36 Red Cell Distribution Width 14 % Normal 10.5-15 Platelet Count 330 10^3/uL Normal 150-450 Mean Platelet Volume 8.2 fL Normal 7.4-10.4 Abs Neutrophils 4.5 10^3/uL Normal 1.5-7.7 Abs Lymphocytes 1.9 10^3/uL Normal 1.0-4.8 Abs Monocytes 0.4 10^3/uL Normal 0-0.8 Abs Eosinophils 0.1 10^3/uL Normal 0-0.6 Abs Basophils 0.1 10^3/uL Normal 0-0.2 Abs Nucleated RBC 0 10^3/uL Granulocyte % 64.9 % Lymphocyte % 26.9 % Monocyte % 5.5 % Eosinophil % 1.7 % Basophil % 1.0 % Nucleated Red Blood Cells % 0 Comp Metabolic 01/04/2019 [facility] Sodium 137 mmol/L Normal 135-[address] [place] [address] [phone] Potassium 4.1 mmol/L Normal 3.5-5.0 Chloride 105 mmol/L Normal 101-111 Co2 Carbon Dioxide 27 mmol/L Normal 22-32 Anion Gap 5 mmol/L Normal 2-11 Calcium 9.8 mg/dL Normal 8.6-10.3 Albumin 4.6 g/dL Normal 3.2-5.2 Total Bilirubin 0.60 mg/dL Normal 0.2-1.0 Glucose 108 mg/dL High 70-100 Blood Urea Nitrogen 9 mg/dL Normal 6-24 Creatinine 0.72 mg/dL Normal 0.51-0.95 BUN/Creatinine Ratio 12.5 Normal 8-20 Total Protein 7.2 g/dL Normal 6.4-8.9 Globulin 2.6 g/dL Normal 2-4 Albumin/Globulin Ratio 1.8 Normal 1-3 Alkaline Phosphatase 77 U/L Normal 34-104 Alt 17 U/L Normal 7-52 Ast 18 U/L Normal 13-39 Egfr Non- 91.1 >60 Egfr 110.3 >60 28 Laboratory 01/04/2019 [facility] TSH (Thyroid 2.58 Normal 0.34 -5.60 29 test finding [address] Stim Horm) mcIU/[place] [address] [phone] Lamotrigine (Lamictal) 11.2 g/mL 2.5 - 15.0 30 1 [place] Severe Sepsis and Septic Shock Management Bundle Measure requires all lactic acids initially measuring >2.0 mmol/L be repeated. 2 Because ethnic data is not always [...] levels of up to 20 mIU/mL 4 ADDITIONAL INFORMATION This test was developed and its performance characteristics determined by [facility] in a manner consistent with CLIA requirements. This test has not been cleared or approved by the U.S. Food and Drug Administration. Test Performed by: [facility] [address] [place] [address] 5 SEE RESULT BELOW Name: DEAN PENG : [address]: Marito Shaikh MD Acct: [id number] Unit: [id number] AGE: 38 Location: ED Re05/01/19 SEX: F Status: DEP ER SPEC: [id number] DEBBIE: 05/01/[address]: Marito Shaikh MD REQ: [id number] RECD: 05/01/19 STATUS: TOMASA COCHRAN DR: Jose Bell WIRE LOOP MACHINE OPERATOR _ SOURCE: URINE SPDESC: ORDERED: Urine Culture Procedure Result Reported Site Urine Culture Final 05/03/19- 0824 ML Organism 1 KLEBSIELLA PNEUMONIAE [place] Count 10-25,000 (Moderate) CFU/ML 1. KLEBSIELLA PNEUMONIAE M.I.C. RX --------- ------ Ampicillin R Cefazolin <=4 S Cefepime <=1 S Ceftriaxone <=1 S Ciprofloxacin <=0.25 S Gentamicin <=1 S Levofloxacin <=0.12 S Meropenem <=0.25 S Nitrofurantoin <=16 S Tetracycline <=1 S Pipercillin/Tazobactam <=4 S Trimethoprim/Sulfamethoxazole <=20 S Amoxicillin/Clavulanic Acid <=2 S Aztreonam <=1 S Contact the Microbiology Department for any additional antibiotic reporting. * ML - Main Lab . END OF REPORT DEPARTMENT OF PATHOLOGY, [address] [place] [address] Ty Guo M.D. Director [facility] # [id number] 6 The urine specimen was tested at the listed cutoffs: Drug class test level (ng/mL) Amphetamines 500 Barbiturates 200 Benzodiazepine metabolites 200 Cocaine metabolites 150 Cannabinoids 50 Opiates 300 Pcp 25 Specimen was received without chain of custody. Results should be used for medical purposes only. 7 Because ethnic data is not always readily [...] 15-29 5 Kidney failure <15 (or dialysis) 8 Standard intensity warfarin therapeutic range: 2.0-3.0 High intensity warfarin therapeutic range: 2.5-3.5 9 SEE RESULT BELOW Name: DEAN PENG : [address]: Bhavik Winter MD Acct: [id number] Unit: [id number] AGE: 38 Location: ED Re04/03/19 SEX: F Status: DEP ER SPEC: [id number] DEBBIE: 04/03/19-[address]: Kristen Winter MD REQ: [id number] RECD: 04/03/19 STATUS: TOMASA COCHRAN DR: Jose Bell WIRE LOOP MACHINE OPERATOR _ SOURCE: URINE SPDESC: ORDERED: Urine Culture Procedure Result Reported Site Urine Culture Final 04/04/19- 1320 ML No growth of clinically significant organisms * ML - Main Lab . END OF REPORT DEPARTMENT OF PATHOLOGY, [address] [place] [address] Ty Guo M.D. Director [facility] # [id number] 10 Because ethnic data is not always [...] 5 Kidney failure <15 (or dialysis) 11 <5.0 Negative 5.0 - 25.0 Indeterminate (Repeat testing recommended after 72 hours) >25.0 Positive Perimenopausal women can display HCG levels of up to 20 mIU/mL 12 SEE RESULT BELOW Name: DEAN PENG : [address]: Marito Shaikh MD Acct: [id number] Unit: [id number] AGE: 38 Location: ED Re02/13/19 SEX: F Status: DEP ER SPEC: [id number] DEBBIE: 02/13/19 [facility] [address]: Nain KOHLER REQ: [id number] RECD: 02/13/19 STATUS: TOMASA COCHRAN DR: [facility] Jose Bell WIRE LOOP MACHINE OPERATOR _ SOURCE: URINE SPDESC: ORDERED: Urine Culture Procedure Result Reported Site Urine Culture Final 02/15/19- 0750 ML No growth of clinically significant organisms * ML - Main Lab . END OF REPORT DEPARTMENT OF PATHOLOGY, [address] [place] [address] Ty Guo M.D. Director [facility] # [id number] 13 *Ascorbic acid is present which may interfere with detection of blood. 14 <5.0 Negative 5.0 - 25.0 Indeterminate (Repeat testing recommended after 72 hours) >25.0 Positive Perimenopausal women can display HCG levels of up to 20 mIU/mL 15 ADDITIONAL INFORMATION This test was developed and its performance characteristics determined by [facility] in a manner consistent with CLIA requirements. This test has not been cleared or approved by the U.S. Food and Drug Administration. Test Performed by: [facility] [address] [place] [address] 16 Because ethnic data is not always [...] 5 Kidney failure <15 (or dialysis) 17 Foundry Equipment Mechanic: [id number] 18 SEE RESULT BELOW Name: DEAN PENG : [address]: Scooter Copeland Acct: [id number] Unit: [id number] AGE: 38 Location: ED Re01/30/19 SEX: F Status: REG ER SPEC: [id number] DEBBIE: 01/30/[address]: Helena KOHLER REQ: [id number] RECD: 01/30/19 STATUS: TOMASA COCHRAN DR: Jose Bell WIRE LOOP MACHINE OPERATOR _ SOURCE: NASAL SPDESC: ORDERED: Flu A B Request Procedure Result Reported Site Rapid Influenza A B Request Final 01/30/19- 1253 ML Specimen received for Influenza A/B Molecular testing * ML - Main Lab . END OF REPORT DEPARTMENT OF PATHOLOGY, [address] [place] [address] Ty Guo M.D. Director [facility] # [id number] 19 SEE RESULT BELOW Name: DEAN PENG : [address]: Marito Shaikh MD Acct: [id number] Unit: [id number] AGE: 38 Location: ED Re01/17/19 SEX: F Status: DEP ER SPEC: [id number] DEBBIE: 01/17/19 [facility] [address]: Marito Shaikh MD REQ: [id number] RECD: 01/17/19 STATUS: TOMASA COCHRAN DR: Jose Bell WIRE LOOP MACHINE OPERATOR _ SOURCE: URINE SPDESC: ORDERED: Urine Culture Procedure Result Reported Site Urine Culture Final 01/18/19- 1216 ML No growth of clinically significant organisms * ML - Main Lab . END OF REPORT DEPARTMENT OF PATHOLOGY, [address] [place] [address] Ty Guo M.D. Director [facility] # [id number] 20 <5.0 Negative 5.0 - 25.0 Indeterminate (Repeat testing recommended after 72 hours) >25.0 Positive Perimenopausal women can display HCG levels of up to 20 mIU/mL 21 Because ethnic data is not always [...] 5 Kidney failure <15 (or dialysis) 22 [facility] Severe Sepsis and Septic Shock Management Bundle Measure requires all lactic acids initially measuring >2.0 mmol/L be repeated. 23 *Ascorbic acid is present which may interfere with detection of blood. 24 The urine specimen was tested at the listed cutoffs: Drug class test level (ng/mL) Amphetamines 500 Barbiturates 200 Benzodiazepine metabolites 200 Cocaine metabolites 150 Cannabinoids 50 Opiates 300 Pcp 25 Specimen was received without chain of custody. Results should be used for medical purposes only. 25 [id number] 26 SEE RESULT BELOW Name: DEAN PENG Lee : [address]: Kenrick Duran MD Acct: [id number] Unit: [id number] AGE: 38 Location: [facility] Re01/04/19 SEX: F Status: DEP ER SPEC: [id number] DEBBIE: 01/04/19-1244 [facility] DR: Kenrick Duran MD REQ: [id number] RECD: 01/04/19-160 STATUS: TOMASA COCHRAN DR: Jose Bell WIRE LOOP MACHINE OPERATOR _ SOURCE: URINE SPDESC: ORDERED: Urine Culture COMMENTS: [id number] Procedure Result Reported Site Urine Culture Final 01/05/19- 1222 ML No growth of clinically significant organisms * ML - Main Lab . END OF REPORT DEPARTMENT OF PATHOLOGY, [address] [place] [address] Ty Guo M.D. Director [facility] # [id number] 27 Foundry Equipment Mechanic: [id number] 28 Because ethnic data is not always [...] 5 Kidney failure <15 (or dialysis) 29 [id number] 30 ADDITIONAL INFORMATION This test was developed and its performance characteristics determined by [facility] in a manner consistent with CLIA requirements. This test has not been cleared or approved by the U.S. Food and Drug Administration. Test Performed by: [facility] [address] [place] [address] Procedures Description No Information Available Medical Devices Description No Information Available Encounters Type Date Location Provider Dx Diagnosis Office Visit 06/23/2019 [facility] Internal Jose Bell, R03.0 Elevated 2:20p Medicine - [facility] CHIEF GUARD blood-pressure reading, w/o diagnosis of htn E66.01 Morbid (severe) obesity due to excess calories F44.5 Conversion disorder with seizures or convulsions G47.33 Obstructive sleep apnea (adult) (pediatric) E55.9 Vitamin D deficiency, unspecified Office Visit 05/26/2019 1:00p Scooter Mena, G43.009 Migraine w/o aura, Neurologic WIRE LOOP MACHINE OPERATOR not intractable, [facility] w/o status migrainosus E66.01 Morbid (severe) obesity due to excess calories Z79.899 Other supervisor assembly stock (current) drug therapy F44.5 Conversion disorder with seizures or convulsions Office Visit 04/27/2019 1:00p Scooter Mena, R03.0 Elevated Neurologic WIRE LOOP MACHINE OPERATOR blood-pressure [facility] reading, w/o diagnosis of htn G43.009 Migraine w/o aura, not intractable, w/o status migrainosus R29.6 Repeated falls Z79.899 Other supervisor assembly stock (current) drug therapy Office Visit 04/07/2019 11:00a [facility] Jose Bell, R03.0 Elevated Medicine - CHIEF GUARD blood-pressure [facility] reading, w/o diagnosis of htn G43.009 Migraine w/o aura, not intractable, w/o status migrainosus R29.6 Repeated falls Office Visit 04/01/2019 Scooter Villagomez G43.009 Migraine w/o 8:30a Aleks Jurado M.D. aura, not [facility] intractable, w/o status migrainosus F44.5 Conversion disorder with seizures or convulsions Office Visit 03/10/2019 1:00p [facility] Aleks Mena, F44.5 Conversion [facility] WIRE LOOP MACHINE OPERATOR disorder with seizures or convulsions G43.009 Migraine w/o aura, not intractable, w/o status migrainosus Office Visit 02/17/2019 11:40a [facility] Zsofia Ray, F44.5 [facility] disorder with seizures or convulsions F41.9 Anxiety disorder, unspecified J30.9 Allergic rhinitis, unspecified N20.0 Calculus of kidney Office Visit 01/19/2019 [facility] Medicine Tawny R42 Dizziness and 11:00a - [facility] Vega giddiness Office Visit 01/15/2019 [facility] Darion G43.009 Migraine w/o 1:00p Clinic Rajesh, WIRE LOOP MACHINE OPERATOR aura, not intractable, w/o status migrainosus F44.5 Conversion disorder with seizures or convulsions Assessments Date Code Description Provider 06/30/2019 E66.01 Morbid (severe) obesity due to excess Darion Knaake, WIRE LOOP MACHINE OPERATOR calories 06/30/2019 F44.5 Conversion disorder with seizures or Darion Knaake, WIRE LOOP MACHINE OPERATOR convulsions 06/30/2019 G43.009 Migraine without aura, not intractable, Darion Knaake, WIRE LOOP MACHINE OPERATOR without status migra 06/23/2019 R03.0 Elevated blood-pressure reading, without Zsofia Ray, CHIEF GUARD diagnosis of hypert 06/23/2019 E66.01 Morbid (severe) obesity due to excess Zsofia Ray, CHIEF GUARD calories 06/23/2019 F44.5 Conversion disorder with seizures or Zsofia Ray, CHIEF GUARD convulsions 06/23/2019 G47.33 Obstructive sleep apnea (adult) (pediatric) Zsofia Ray , CHIEF GUARD 06/23/2019 E55.9 Vitamin D deficiency, unspecified Zsofia Ray, CHIEF GUARD 05/26/2019 G43.009 Migraine without aura, not intractable, Darion Knaake, WIRE LOOP MACHINE OPERATOR without status migra 05/26/2019 E66.01 Morbid (severe) obesity due to excess Darion Knaake, WIRE LOOP MACHINE OPERATOR calories 05/26/2019 Z79.899 Other supervisor assembly stock (current) drug therapy Darion Kmaake, WIRE LOOP MACHINE OPERATOR 05/26/2019 F44.5 Conversion disorder with seizures or Darion Knaake, WIRE LOOP MACHINE OPERATOR convulsions 04/27/2019 R03.0 Elevated blood-pressure reading, without Darion Knaake, WIRE LOOP MACHINE OPERATOR diagnosis of hypert 04/27/2019 G43.009 Migraine without aura, not intractable, Darion Kmventura, WIRE LOOP MACHINE OPERATOR without status migra 04/27/2019 R29.6 Repeated falls Darion Mena, WIRE LOOP MACHINE OPERATOR 04/27/2019 Z79.899 Other supervisor assembly stock (current) drug therapy Darion Mena, WIRE LOOP MACHINE OPERATOR 04/07/2019 R03.0 Elevated blood-pressure reading, without Zsofia Ray, CHIEF GUARD diagnosis of hypert 04/07/2019 G43.009 Migraine without aura, not intractable, Zsofia Ray, CHIEF GUARD without status migra 04/07/2019 R29.6 Repeated falls Zsofia Ray, CHIEF GUARD 04/01/2019 G43.009 Migraine without aura, not intractable, Hernando Jurado M.D. without status migra 04/01/2019 F44.5 Conversion disorder with seizures or Hernando Jurado M.D. convulsions 03/10/2019 F44.5 Conversion disorder with seizures or Darion Mena NP convulsions 03/10/2019 G43.009 Migraine without aura, not intractable, Darion Kmventura, WIRE LOOP MACHINE OPERATOR without status migra 02/17/2019 F44.5 Conversion disorder with seizures or Zsofia Ray, CHIEF GUARD convulsions 02/17/2019 F41.9 Anxiety disorder, unspecified Zsofia Ray, CHIEF GUARD 02/17/2019 J30.9 Allergic rhinitis, unspecified Zsofia Ray, CHIEF GUARD 02/17/2019 N20.0 Calculus of kidney Zsofia Ray, CHIEF GUARD 01/19/2019 R42 Dizziness and giddiness Tawny Ferrari MD 01/15/2019 G43.009 Migraine without aura, not intractable, Darionshakira Mena NP without status migra 01/15/2019 F44.5 Conversion disorder with seizures or Darion Mena NP convulsions Plan of Treatment Future Appointment(s):08/31/2019 11:00 am - Darion Mena NP at [facility]09/22/2019 1:00 pm - MOSHE Doherty at [facility] 2:30 pm - Caitlyn Kang NP at [facility]06/30/2019 - Darion Mena, NPE66.01 Morbid ( severe) obesity due to excess kqttgopvV82.5 Conversion disorder with seizures or yzpuhnmfoiwY42.009 Migraine without aura, not intractable, without status migraFollow up:TWO MONTHSRecommendations:Start Aimovig Functional Status Description No Information Available Mental Status Description No Information Available Referrals Refer to Dr Reason for Referral Status Appt Date [facility] Morbid obesity; Needs baratric Sent consult [address] [facility] [address] [address] [place] [address] [phone]
[2019-08-25 12:48] VITALS: BP 139/80
--- NOTE | 2019-08-25 13:52 | UC ---
Respiratory Complaint HPI - HPI Summary HPI Summary: 4-5 days of hacking cough, nasal congestion, chest congestion and subjective fever. Has mild sore throat but no ear pain. No nausea/vomiting. Feels wheezy. - History of Current Complaint Chief Complaint: UCGeneralIllness Stated Complaint: COUGH, AND SINUS CONGESTION Time Seen by Provider: 08/25/19 13:46 Hx Obtained From: Patient Hx Last Menstrual Period: 08/25/19 Onset/Duration: Gradual Onset, Lasting Days, Still Present Timing: Constant Severity Initially: Moderate Severity Currently: Moderate Pain Intensity: 8 Pain Scale Used: 0-10 Numeric Character: Cough: Nonproductive Aggravating Factors: Nothing Alleviating Factors: Nothing Associated Signs And Symptoms: Positive: URI, Nasal Congestion - Allergies/Home Medications Allergies/Adverse Reactions: Allergies Allergy/AdvReac Type Severity Reaction Status Date / Time blueberry Allergy Severe Hives/Diff. Verified 08/25/19 12:39 Breathing/I tching diphenhydramine Allergy Severe Swelling Verified 08/25/19 12:39 [From Benadryl] paroxetine [From Paxil] Allergy Severe Swelling Verified 08/25/19 12:39 Penicillins Allergy Severe Shortness Verified 08/25/19 12:39 of Breath watermelon Allergy Severe Hives/Diff. Verified 08/25/19 12:39 Breathing/I tching amoxicillin [From Augmentin] Allergy Intermediate Hives Verified 08/25/19 12:39 clavulanic acid Allergy Intermediate Hives Verified 08/25/19 12:39 [From Augmentin] clindamycin Allergy Intermediate Hives Verified 08/25/19 12:39 formoterol [From Dulera] Allergy Intermediate Hives Verified 08/25/19 12:39 iohexol [From Omnipaque] Allergy Intermediate Hives Verified 08/25/19 12:39 metronidazole Allergy Intermediate Hives Verified 08/25/19 12:39 sertraline [From Zoloft] Allergy Intermediate Hives Verified 08/25/19 12:39 zonisamide Allergy Intermediate Hives Verified 08/25/19 12:39 pseudoephedrine Allergy Unknown Unknown Verified 08/25/19 12:39 Reaction Details acetaminophen [From Tylenol] Allergy dilusional Verified 08/25/19 12:39 coconut Allergy Hives/Diff. Verified 08/25/19 12:39 Breathing/I tching codeine Allergy Altered Verified 08/25/19 12:39 Mental Status guaifenesin [From Mucinex] Allergy Unknown Verified 08/25/19 12:39 Reaction Details latex Allergy Hives Verified 08/25/19 12:39 lemon oil Allergy Vomiting Verified 08/25/19 12:39 morphine Allergy See Comment Verified 08/25/19 12:39 pickle Allergy Intermediate Hives/Diff. Uncoded 08/25/19 12:39 Breathing/I tching Home Medications: Home Medications Albuterol 2.5MG/3ML (0.083%)* [Ventolin 2.5 MG/3 ML NEB.MAXIMILIANO*] 2.5 mg INH Q4H [History Confirmed 08/25/19] PMH/Surg Hx/FS Hx/Imm Hx Endocrine History: Hypothyroidism Respiratory History: COPD, Asthma Neurological History: Seizures, Migraine Other History Of: Negative For: HIV, Hepatitis B, Hepatitis C - Surgical History Surgical History: Yes Surgery Procedure, Year, and Place: Scalp Cystectomy May 2014, Abdominal Lipoma May 2014 - Family History Known Family History: Positive: Cardiac Disease, Diabetes Negative: Renal Disease, Seizure Disorder - Social History Alcohol Use: None Substance Use Type: None Smoking Status (MU): Former Smoker Type: Cigarettes Have You Smoked in the Last Year: No - Immunization History Most Recent Influenza Vaccination: Fall 2014 Most Recent Tetanus Shot: 2014 Most Recent Pneumonia Vaccination: unknown Review of Systems All Other Systems Reviewed And Are Negative: Yes Constitutional: Positive: Fever ENT: Positive: Sore Throat, Ear Ache, Nasal Discharge Respiratory: Positive: Cough Cardiovascular: Positive: Negative Gastrointestinal: Positive: Negative Physical Exam Triage Information Reviewed: Yes Appearance: Well-Appearing, No Pain Distress, Well-Nourished Vital Signs: Initial Vital Signs Temp 97.6 F 08/25/19 12:41 Pulse 97 08/25/19 12:41 Resp 18 08/25/19 12:41 BP 139/80 08/25/19 12:41 Pulse Ox 98 08/25/19 12:41 Vital Signs Reviewed: Yes Eyes: Positive: Conjunctiva Clear ENT: Positive: Hearing grossly normal, Pharyngeal erythema, TMs normal. Negative: Tonsillar swelling, Tonsillar exudate Neck: Positive: Supple, Nontender, No Lymphadenopathy Respiratory Exam: Normal Cardiovascular Exam: Normal Abdomen Description: Positive: Soft Musculoskeletal: Positive: No Edema Neurological: Positive: Alert Psychological: Positive: Age Appropriate Behavior Skin: Negative: Rashes Respiratory Course/Dx - Differential Dx/Diagnosis Provider Diagnosis: Upper respiratory infection Discharge ED - Sign-Out/Discharge Documenting (check all that apply): Patient Departure All imaging exams completed and their final reports reviewed: No Studies - Discharge Plan Condition: Stable Disposition: HOME Patient Education Materials: Upper Respiratory Infection (ED) Referrals: Jose Bell MOTION STUDY ANALYST [Primary Care Provider] - If Needed Additional Instructions: YOUR SYMPTOMS ARE LIKELY VIRALLY MEDIATED AND SHOULD RESOLVE ON THEIR OWN WITH TIME. NO INDICATION FOR ANTIBIOTICS AT PRESENT. REST, HYDRATE, OTC MEDS NEEDED. SEEK FOLLOW-UP IF YOU ARE NOT IMPROVING OVER THE NEXT 1-2 WEEKS. - Billing Disposition and Condition Condition: STABLE Disposition: Home
== END 2019-08-25 14:00 | disposition home or self-care (01) ==
LOC: UCEAST 12:27
DX: J06.9 Acute upper respiratory infection, unspecified (principal); J44.9 Chronic obstructive pulmonary disease, unspecified; Z91.018 Allergy to other foods; Z79.899 Other long term (current) drug therapy; Z88.0 Allergy status to penicillin; Z88.5 Allergy status to narcotic agent; Z88.8 Allergy status to other drugs, medicaments and biological substances; Z87.891 Personal history of nicotine dependence; Z91.040 Latex allergy status
CPT/HCPCS: 99211; G0463

== ENCOUNTER 2019-08-26 10:42 | Emergency (ER) | payer OTHER ==
[2019-08-26 11:05] VITALS: BP 129/69
--- NOTE | 2019-08-26 11:31 | UC ---
Dizzy HPI HPI Summary: 38 yo female with seizure disorder and prediabetes c/o waking up this morning, rolling over, getting up and the room started spinning severely. Patient can walk slowly. She does use a walker normally because of her seizure disorder. In the [facility], she walks slowly and won't move her head. - History Of Current Complaint Chief Complaint: UCDizziness Stated Complaint: DIZZY Time Seen by Provider: 08/26/19 11:03 Hx Obtained From: Patient Hx Last Menstrual Period: 08/25/19 Onset/Duration: Sudden Onset Timing: Constant Severity Initially: Moderate - with movement Pain Intensity: 9 - Allergies/Home Medications Allergies/Adverse Reactions: Allergies Allergy/AdvReac Type Severity Reaction Status Date / Time blueberry Allergy Severe Hives/Diff. Verified 08/26/19 10:56 Breathing/I tching diphenhydramine Allergy Severe Swelling Verified 08/26/19 10:56 [From Benadryl] paroxetine [From Paxil] Allergy Severe Swelling Verified 08/26/19 10:56 Penicillins Allergy Severe Shortness Verified 08/26/19 10:56 of Breath watermelon Allergy Severe Hives/Diff. Verified 08/26/19 10:56 Breathing/I tching amoxicillin [From Augmentin] Allergy Intermediate Hives Verified 08/26/19 10:56 clavulanic acid Allergy Intermediate Hives Verified 08/26/19 10:56 [From Augmentin] clindamycin Allergy Intermediate Hives Verified 08/26/19 10:56 formoterol [From Dulera] Allergy Intermediate Hives Verified 08/26/19 10:56 iohexol [From Omnipaque] Allergy Intermediate Hives Verified 08/26/19 10:56 metronidazole Allergy Intermediate Hives Verified 08/26/19 10:56 sertraline [From Zoloft] Allergy Intermediate Hives Verified 08/26/19 10:56 zonisamide Allergy Intermediate Hives Verified 08/26/19 10:56 pseudoephedrine Allergy Unknown Unknown Verified 08/26/19 10:56 Reaction Details acetaminophen [From Tylenol] Allergy dilusional Verified 08/26/19 10:56 coconut Allergy Hives/Diff. Verified 08/26/19 10:56 Breathing/I tching codeine Allergy Altered Verified 08/26/19 10:56 Mental Status guaifenesin [From Mucinex] Allergy Unknown Verified 08/26/19 10:56 Reaction Details latex Allergy Hives Verified 08/26/19 10:56 lemon oil Allergy Vomiting Verified 08/26/19 10:56 morphine Allergy See Comment Verified 08/26/19 10:56 pickle Allergy Intermediate Hives/Diff. Uncoded 08/26/19 10:56 Breathing/I tching PMH/Surg Hx/FS Hx/Imm Hx - Additional Past Medical History Additional PMH: PAST MEDICAL HISTORY- CHRONIC and RECURRENT HEALTH PROBLEM LIST REVIEWED. Information relevant to present complaint: seizure disorder, uses alker. VISIT HISTORY REVIEWED: MEDICATIONS & ALLERGIES REVIEWED.multiple allergiesand medications. Patient is prediabetic. HYPERTENSION STATUS: FAMILY HISTORY: Positive for: stroke SOCIAL HISTORY: non-smoker, lives with fianc. Previously Healthy: No Other History Of: Negative For: HIV, Hepatitis B, Hepatitis C - Surgical History Surgical History: Yes Surgery Procedure, Year, and Place: Scalp Cystectomy May 2014, Abdominal Lipoma May 2014 - Family History Known Family History: Positive: Cardiac Disease, Diabetes Negative: Renal Disease, Seizure Disorder - Social History Alcohol Use: None Substance Use Type: None Smoking Status (MU): Former Smoker Type: Cigarettes Have You Smoked in the Last Year: No - Immunization History Most Recent Influenza Vaccination: Fall 2014 Most Recent Tetanus Shot: 2014 Most Recent Pneumonia Vaccination: unknown Review of Systems All Other Systems Reviewed And Are Negative: Yes Constitutional: Positive: Negative Respiratory: Positive: Cough - seen yesterday; dx, URI Cardiovascular: Positive: Negative Gastrointestinal: Positive: Negative Genitourinary: Positive: Negative Is Patient Immunocompromised?: No Physical Exam - Summary Physical Exam Summary: Appearance: The patient walks slowly and is not ataxic or complaining of chest pain or shortness of breath. She is at the time of examination supine and complains that when she moves her head the room spins. Eyes: Conjunctiva are clear. Pupils are equal and reactive to light and accommodation. Extra ocular muscle movement is intact. ENT: The hearing is grossly normal, the pharynx is normal, and the TMs are normal. There is no muffled or hoarse voice. No stridor. Neck: The neck is supple and there is no lymphadenopathy. Respiratory: The chest is non-tender to palpation and without crepitus. The lungs are clear, there are normal breath sounds, and there is no respiratory distress. No wheezes, rales or rhonchi. Cardiovascular: Heart sounds reveal a regular rate and rhythm. There are no clicks, rubs or murmurs. There are no carotid bruits or thrills. Circulation is grossly intact. Abdomen: The abdomen is soft and nontender. There is no organomegaly. Bowel sounds are present and within normal limits. No point tenderness at McBurneys point. No CVA tenderness. Musculoskeletal: Strength is intact. The patient moves all extremities. Neurological: The patient is alert. Motor and sensory are examination grossly intact. Speech is normal. Psychological: The patient displays age appropriate behavior, and is conversant. GCS=15. Skin: Negative for rashes. Exam summary:patient's examination is most consistent with benign positional vertigo Watching her ambulate prior to leaving the [facility],she is not ataxic. Although nystagmus could not be elicited, the history is consistent with vertigo. It is conceivable that the vertigo may be referred to an infectious cause. Because she has a recent URI. Triage Information Reviewed: Yes Vital Signs: Initial Vital Signs Temp 98.6 F 08/26/19 10:58 Pulse 85 08/26/19 10:58 Resp 18 08/26/19 10:58 BP 129/69 08/26/19 10:58 Pulse Ox 97 08/26/19 10:58 Dizzy Course/Dx - Course Course Of Treatment: 38 yo female with seizure disorder and prediabetes c/o waking up this morning, rolling over, getting up and the room started spinning severely. Patient can walk slowly. She does use a walker normally because of her seizure disorder. In the [facility], she walks slowly and won't move her head. examination shows that the vertigo is reproducible with head movement. Sue-Hallpike did not elicit nystagmus. However, she has no vertical nystagmus or ataxia. during her visit here. There was apower outage and this prolonged. Her time in the [facility]. However, it didn't give me a chance to watch her ambulate again and she appeared improved. The patient has a complicated past medical history that includes seizure, and prediabetes. She has multiple allergies includingan allergy to diphenhydramine and Antivert. I have given her instructions about, moving slowly and staying well-hydrated, as well as following up in the next 3- 5 days with her physician. My diagnosis is benign positional vertigo, although given her recent infectious history. She could have labyrinthitis. The onset of vertigo with movement when she woke up, however, is most consistent with benign positional vertigo. - Differential Dx/Diagnosis Differential Diagnosis/HQI/PQRI: Anxiety, Benign Paroxysmal Positional Vertigo, Labyrinthitis, Meniere's Disease, Seizure, Transient Ischemic Attack Provider Diagnosis: Benign positional vertigo Discharge ED - Sign-Out/Discharge Documenting (check all that apply): Patient Departure All imaging exams completed and their final reports reviewed: No Studies - Discharge Plan Condition: Stable Disposition: HOME Patient Education Materials: Vertigo (DC) Referrals: Jose Bell NP [Primary Care Provider] - Additional Instructions: WE DISCUSSED: Your diagnosis is VERTIGO. This should get better over the next few days although it may come and go. It can come after a cold, and should go away on your own. BUT if you get worse, GO TO ED. See attached instructions. Prescription:NONE. Other instructions.; REST LOTS OF FLUIDS MOVE SLOWLY USE YOUR WALKER Follow up in 5 days with your doctor if you are not improving. There are exercises you can do. GO TO ED IF YOU HAVE ANY NEW OR WORSENING SYMPTOMS. GO TO ED IF YOU HAVE ANY ALLERGIC REACTION TO ANTIVERT. - Billing Disposition and Condition Condition: STABLE Disposition: Home
== END 2019-08-26 12:05 | disposition home or self-care (01) ==
LOC: UCEAST 10:42
DX: H81.10 Benign paroxysmal vertigo, unspecified ear (principal); R73.03 Prediabetes; G40.909 Epilepsy, unspecified, not intractable, without status epilepticus; Z91.018 Allergy to other foods; Z88.8 Allergy status to other drugs, medicaments and biological substances; Z88.0 Allergy status to penicillin; Z88.1 Allergy status to other antibiotic agents; Z88.5 Allergy status to narcotic agent; Z91.040 Latex allergy status; Z87.891 Personal history of nicotine dependence
CPT/HCPCS: 99211; G0463

== ENCOUNTER 2019-09-03 16:02 | Emergency (ER) | payer OTHER ==
--- OUTSIDE RECORDS SUMMARY | 2019-09-03 16:20 | XMS REPORT | Continuity of Care Document ---
:1980 External Reference #:[id number] Author Name Belia Maria MD (transmitted by agent of provider Steff Deng) Address [address] [place] [address]., [place] [address] Care Team Providers Name Role Phone Sari Vazquez MD - Dermatology Care Team Information Registered Travel Nurse Fatoumata Pritchard MD - Psychiatry Care Team Information Registered Travel Nurse [phone] Hernando Marin MD - Allergy & Care Team Information Registered Travel Nurse Immunology Eron Manning MD - Care Team Information Registered Travel Nurse [phone] Otolaryngology Yossi Lagos MD - Surgery Care Team Information Registered Travel Nurse [phone] [facility] - [facility] Disorder Care Team Information Registered Travel Nurse Diagnostic [facility] - Care Team Information Registered Travel Nurse [phone] Special Delivery Clerk Comfort Oliver MD - Internal Care Team Information Registered Travel Nurse Medicine Problems Active Problems Provider Date Epilepsy [...] Onset: 04/01/2019 Migraine without aura, not refractory Hernando Jurado M.D. Onset: 2018 Social History Type Date Description Comments Sex Unknown ETOH Use 01/21/2018 Denies alcohol use Tobacco Use Start: Unknown End: Unknown Patient is a former smoker Recreational Drug Use Denies Drug Use Smoking Status Reviewed: 09/01/19 Patient is a former smoker Allergies, Adverse [...] Medications SIG Qnty Indications Ordering Date Provider Azithromycin Take 2 tablets on H66.93 Belia 09/01/2019 250mg day 1, then 1 tab MD Crow Tablets daily for days 2-5 Vitamin D3 1 by mouth every 90tabs E55.9 Andreapratibha Morochok, 06/23/2019 1000Unit day [facility] Tablets Doxepin HCL take two caps by 60caps G43.009 Clinton Blacno 06/21/2019 50mg mouth at night. Pablo Yadav Capsules Meclizine HCL one tablet twice a 60tabs Jacksonmagaly Morochok, 05/10/2019 25mg day if too [facility] Tablets sedating reduce to one every night at bedtime Aimovig inject sq once a 1ml Clinton Blanco 05/07/2019 70mg/ml month Pablo Yadav Solution Auto-Inject Blood Pressure use daily to 1units G43.009 Andreapratibha Morochok, 04/07/2019 Monitor Auto monitor bp daily [facility] Inflate Misc Walker Swivel use with 1units R29.6 Andreapratibha Morochok, 04/07/2019 Wheels/5 Adjustment ambulation [facility] Holes/3" 3" Misc Lamotrigine take 2 tab by 120tabs Clinton Blanco 01/15/2019 200mg mouth in the Pablo Yadav Tablets morning and take 2 tabs at bedtime. Trueplus Lancets 30G use to test 100units Jose Morochok, 12/31/2018 Ultra Thin [facility] 30G Misc Fluticasone use 2 sprays in 16units J01.90 Jose Bell, 10/21/2018 Propionate each nostril one [facility] 50mcg/Act time a day Suspension Robitussin 12 Hour 5 milliliters by 89ml R05 Jose Bell, 10/21/2018 Cough Relief mouth twice a day [facility] 30mg/5ML as needed Suer Nasal Holcomb 12 Hour 2 sprays each 30ml J01.90 Jose Bell, 10/21/2018 nostril 2x daily [facility] 0.05% Solution as needed for congestion True Focus Self test blood twice 100units Tawny Ferrari MD 08/17/2018 Monitoring Blood daily Glucose Test Strips Strips True Metrix Go Blood use daily as 1units Jose Bell, 08/17/2018 Glucose Meter directed last [facility] visit: 08/19/18 w/Device Kit Ventolin HFA 2 puffs by mouth 8gm J45.30 [facility], 07/15/2018 four times a day [facility] 108(90Base) mcg/Act as needed Aerosol Citalopram take one tablet by 30tabs [facility], 03/12/2018 Hydrobromide mouth every day [facility] 40mg Tablets Ibuprofen take one tablet 90tabs [facility], 06/24/2016 800mg daily as needed. [facility] Tablets Omeprazole take one capsule 30caps K21.9 [facility], 09/15/2015 20mg by mouth every day [facility] Capsules DR PETERSON Cetirizine HCL 1 by mouth every 30tabs codesyofimagaly Bell, 03/31/2015 day [facility] 10mg Tablets Ferrous Gluconate take one tablet by 180tabs D50.9 [facility] mouth twice daily [facility] 324(38Fe) mg Tablets Albuterol Sulfate inhale the 100units [facility] Ray, 11/02/2012 contents of one [facility] (2.5mg/3ML) 0.083% vial via nebulizer Nebulizer every 4 to 6 hours as needed Levothyroxine Sodium 1 by mouth every 90tabs E03.9 [facility], / day [facility] 75mcg Tablets History Medications Doxepin HCL 60caps Clinton Blanco 05/26/2019 - 25mg Pablo Yadav 06/21/2019 Capsules Emgality inject 2 pens for 1ml Clinton Blanco 05/04/2019 - 120mg/ml the first dose than Pablo Yadav 05/07/2019 Solution Auto-Inject 1 pen monthly (first dose will be 2 ml) Lamotrigine 1 tab by mouth in 30tabs Clinton Bryant 05/03/2019 - 25mg the PM, (take with Pablo Yadav 05/17/2019 Tablets PM dose of 400 MG Lamotrigine for a total of 425 MG in the PM) Aimovig inject sq once a 1ml G43.009 Clniton Blanco 04/27/2019 - 70mg/ml month Pablo Yadav 04/27/2019 Solution Auto-Inject Aimovig inject sq once a 1ml Clinton SByrant 04/27/2019 - 70mg/ml month Pablo Yadav 05/03/2019 Solution Auto-Inject Prednisone 3 tabs for 1 day 6tabs Clinton Blanco 04/07/2019 - 20mg then 2 tabs for 1 Pablo Yadav 07/08/2019 Tablets day then 1 tab for 1 day Hydroxyzine HCL Take one tab by 60tabs Clinton Blanco 04/01/2019 - 50mg mouth twice a day, Pablo Yadav 04/07/2019 Tablets as needed Ketorolac take one tab by 20tabs Jose Bell 04/01/2019 - Tromethamine mouth every 4-6 [facility] 04/06/2019 10mg hours, as needed Tablets for severe migraine for five days. max 4 doses a day. take with food. Lamotrigine Starting 03/26, take 14tabs Clinton Blanco 03/11/2019 - 100mg one tab by mouth Pablo Yadav 04/07/2019 Tablets with 200 mg dose in the morning (total of 300 mg in the morning) for two weeks. Lamotrigine take one tab by 7tabs Clinton Blanco 03/10/2019 - 100mg mouth with 200 mg Pablo Yadav 03/11/2019 Tablets Dispers dose in the morning (total of 300 mg in the morning) for one week. Doxepin HCL Take one capsule at 30caps G43.909 Clinton Blanco 03/10/2019 - 50mg night. Pablo Yadav 03/10/2019 Capsules Doxepin HCL take one cap by 30caps G43.009 Clinton Blanco 03/10/2019 - 50mg mouth at night. Pablo Yadav 06/21/2019 Capsules Immunizations CPT Code Status Date Vaccine Reaction Lot # [id number] Given 08/19/2018 Influenza Virus Vaccine, [id number] Quadrivalent, Split, Preservative Free 14488 Given 07/28/2018 Influenza Virus Vaccine, Quadrivalent, Split, Preservative Free 12033 Given 07/28/2018 Influenza Virus Vaccine, Quadrivalent, Split, Preservative Free 83950 Given 01/21/2018 Influenza Virus Vaccine, [id number] Quadrivalent, Split, Preservative Free 74568 Given 10/16/2017 Pneumonia Vaccine no reaction, pt [id number] tolerated well Q2035 Given 10/16/2015 Afluria Vaccine [id number] Given 08/20/2012 Tdap - [id number] Tetanus/Diptheria/Acellula r Pertussis Q2038 Given 07/20/2012 Fluzone Vaccine [id number] Q2035 Ordered 07/04/2016 Afluria Vaccine Vital Signs Date Vital Result Comment 09/01/2019 2:51pm Height 67 inches 5'7" Weight 368.00 lb Heart Rate 90 /min BP Systolic Sitting 134 mmHg BP Diastolic Sitting 79 mmHg Body Temperature 97.7 F O2 % BldC Oximetry 97 % BMI (Body Mass Index) 57.6 kg/m2 06/30/2019 2:28pm Height 67 inches 5'7" Weight 366.00 lb Heart Rate 86 /min BP Systolic 140 mmHg BP Diastolic 88 mmHg BMI (Body Mass Index) 57.3 kg/m2 Results Test Date Facility Test Result H/L Range Note Laboratory test 08/26/2019 [facility] Point of Care 131 mg/dL High 70-100 1 finding [address] [facility] [place] [address] [phone] Urinalysis Profile 05/13/2019 [facility] Urine Color Yellow [address] [place] [address] [phone] Urine Appearance Cloudy Urine Specific Thompson 1.017 Normal 1.010-1.030 Urine pH 7.0 Normal 5-9 Urine Urobilinogen Negative Negative Urine Ketones Negative Negative Urine Protein Negative Negative Urine Leukocytes Negative Negative Urine Blood Negative Negative Urine Nitrite Negative Negative Urine Bilirubin Negative Negative Urine Glucose Negative Negative Laboratory test 05/13/2019 [facility] Lactic Acid 1.4 mmol/L Normal 0.5-2.0 2 finding [address] [place] [address] [phone] CBC Auto Diff 05/13/2019 [facility] White Blood 8.5 10^3/uL Normal 3.5-10.8 [address] [facility] [place] [address] [phone] Red Blood Count 3.80 10^6/uL Normal 3.70-4.87 [...] Blood Cells % 0.0 Comp Metabolic 05/13/2019 [facility] Sodium 137 mmol/L Normal 135-145 Panel [address] [place] [address] [phone] Potassium 4.1 mmol/L Normal 3.5-5.0 Chloride 106 [...] Egfr Non- 84.4 >60 Egfr 102.1 >60 3 Laboratory test 05/13/2019 [facility] Magnesium 1.8 mg/dL Low 1.9-2.7 finding [address] [place] [address] [phone] HCG < 0.60 mIU/mL 4 Laboratory test 05/10/2019 [facility] Lamotrigine 10.8 g/mL 2.5 - [address] (Lamictal) 15.0 [place] [address] [phone] Urine Culture And 05/01/2019 [facility] Urine Culture SEE RESULT [address] [place] [address] [phone] Urine Drug SCR ED 05/01/2019 [facility] Urine None None [facility] [address] [place] [address] Screen [phone] Urine Barbiturates Screen None Detected None Detect Urine Benzodiazepine Screen None Detected None Detect Urine Cannabinoids Screen None Detected None Detect Urine Cocaine Screen None Detected None Detect Urine Opiates Screen None Detected None Detect Urine Phencyclidine Screen None Detected None Detect 7 Urinalysis Profile 05/01/2019 [facility] Urine Color Yellow [address] [place] [address] [phone] Urine Appearance Clear Urine Specific Thompson 1.020 Normal 1.010-1.030 Urine pH 7.0 Normal [...] Cell Present Abnormal Absent Laboratory test 05/01/2019 [facility] Magnesium 2.0 mg/dL Normal 1.9-2.[address] [place] [address] [phone] Alcohol < 10 mg/dL Normal <10 TSH (Thyroid Stim Horm) 2.34 mcIU/mL Normal 0.34-5.60 Comp Metabolic 05/01/2019 [facility] Sodium 140 mmol/L Normal 135-[address] [place] [address] [phone] Potassium 4.4 mmol/L Normal 3.5-5.0 Chloride 107 [...] Egfr Non- 79.6 >60 Egfr 96.3 >60 8 CBC Auto 05/01/2019 [facility] White Blood 8.3 10^3/uL Normal 3.5-10.[address] [place] [address] [phone] Red Blood Count 3.93 10^6/uL Normal 3.70-4.87 [...] Red Blood Cells % 0.1 Inr/Protime 05/01/2019 [facility] Inr 1.00 Normal 0.82-1.[address] [place] [address] [phone] Urinalysis 04/03/2019 [facility] Urine Yellow Profile [address] [place] [address] [phone] Urine Appearance Cloudy Urine Specific Thompson 1.014 Normal 1.010-1.030 Urine pH 7.0 Normal [...] Present Abnormal Absent Urine Culture And 04/03/2019 [facility] Urine SEE RESULT [address] [place] [place] [address] [phone] CBC Auto Diff 04/03/2019 [facility] White Blood 7.8 10^3/uL Normal 3.5- [address] Count 10.8 [place] [address] [phone] Red Blood Count 4.08 10^6/uL Normal 3.70-4.87 [...] Blood Cells % 0.1 Comp Metabolic 04/03/2019 [facility] Sodium 137 mmol/L Normal 135-[address] [place] [address] [phone] Potassium 4.3 mmol/L Normal 3.5-5.0 Chloride 105 [...] Egfr Non- 85.6 >60 Egfr 103.6 >60 11 Laboratory test 04/03/2019 [facility] HCG < 0.60 mIU/ mL [address] [place] [address] [phone] 1 Sock Turner: [id number] 2 [facility] Severe Sepsis and Septic Shock Management Bundle Measure requires all lactic acids initially measuring >2.0 mmol/L be repeated. 3 Because ethnic data is not always readily [...] 15-29 5 Kidney failure <15 (or dialysis) 4 <5.0 Negative 5.0 - 25.0 Indeterminate (Repeat testing recommended after 72 hours) >25.0 Positive Perimenopausal women can display HCG levels of up to 20 mIU/mL 5 ADDITIONAL INFORMATION This test was developed and its performance characteristics determined by [facility] in a manner consistent with CLIA requirements. This test has not been cleared or approved by the U.S. Food and Drug Administration. Test Performed by: [facility] [address] [place] [address] 6 SEE RESULT BELOW Name: DEAN PENG : [address]: Marito Shaikh MD Acct: [id number] Unit: [id number] AGE: 38 Location: ED Re05/01/19 SEX: F Status: DEP ER SPEC: [id number] DEBBIE: 05/01/19-[address] [facility] [address]: Marito Shaikh MD REQ: [id number] RECD: 05/01/19 STATUS: TOMASA COCHRNA DR: Jose Bell DYE TUB TENDER _ SOURCE: URINE SPDESC: ORDERED: Urine Culture Procedure Result Reported Site Urine Culture Final 05/03/19- 823 ML Organism 1 KLEBSIELLA PNEUMONIAE [place] Count 10-25,000 (Moderate) CFU/ML 1. KLEBSIELLA PNEUMONIAE [...] . END OF REPORT DEPARTMENT OF PATHOLOGY, [address] [place] [address] Ty Guo M.D. Director [facility] # [id number] 7 The urine specimen was tested at the listed cutoffs: Drug class test level (ng/mL) Amphetamines 500 Barbiturates 200 Benzodiazepine metabolites 200 Cocaine metabolites 150 Cannabinoids 50 Opiates 300 Pcp 25 Specimen was received without chain of custody. Results should be used for medical purposes only. 8 Because ethnic data is not always [...] 5 Kidney failure <15 (or dialysis) 9 Standard intensity warfarin therapeutic range: 2.0-3.0 High intensity warfarin therapeutic range: 2.5-3.5 10 SEE RESULT BELOW Name: DEAN PENG : [address]: Bhavik Winter MD Acct: [id number] Unit: [id number] AGE: 38 Location: ED Re04/03/19 SEX: F Status: DEP ER SPEC: [id number] DEBBIE: 04/03/[address] [facility] [address]: Kristen Winter MD REQ: [id number] RECD: 04/03/19 STATUS: TOMASA COCHRAN DR: Jose Bell DYE TUB TENDER _ SOURCE: URINE SPDESC: ORDERED: Urine Culture Procedure Result Reported Site Urine Culture Final 04/04/19- 1320 ML No growth of clinically significant organisms * ML - Main Lab . END OF REPORT DEPARTMENT OF PATHOLOGY, [address] [place] [address] Ty Guo M.D. Director [facility] # [id number] 11 Because ethnic data is not always [...] 15-29 5 Kidney failure <15 (or dialysis) 12 <5.0 Negative 5.0 - 25.0 Indeterminate (Repeat testing recommended after 72 hours) >25.0 Positive Perimenopausal women can display HCG levels of up to 20 mIU/mL Procedures Description No Information Available Medical Devices Description No Information Available Encounters Type Date Location Provider Dx Diagnosis Office Visit 06/30/2019 Iron Aleks Mena NP E66.01 Morbid ( severe) 2:30p [facility] obesity due to excess calories F44.5 Conversion disorder with seizures or convulsions G43.009 Migraine w/o aura, not intractable, w/o status migrainosus Z68.43 Body mass index (BMI) 50.0-59.9, adult Office Visit 06/23/2019 2:20p [facility] Internal Jose Bell, R03.0 [facility] Medicine - [facility] blood-pressure C[facility] reading, w/o diagnosis of htn E66.01 Morbid (severe) obesity due to excess calories F44.5 Conversion disorder with seizures or convulsions G47.33 Obstructive sleep apnea (adult) (pediatric) E55.9 Vitamin D deficiency, unspecified Office Visit 05/26/2019 1:00p Iron Darion Mena, G43.009 Migraine w/o aura, Neurologic DYE TUB TENDER not intractable, [facility] w/o status migrainosus E66.01 Morbid (severe) obesity due to excess calories Z79.899 Other director long term care (current) drug therapy F44.5 Conversion disorder with seizures or convulsions Office Visit 04/27/2019 1:00p Iron Darion Mena, R03.0 Elevated Neurologic DYE TUB TENDER blood-pressure [facility] reading, w/o diagnosis of htn G43.009 Migraine w/o aura, not intractable, w/o status migrainosus R29.6 Repeated falls Z79.899 Other director long term care (current) drug therapy Office Visit 04/07/2019 11:00a [facility] Internal Zsofia Ray, R03.0 Elevated Medicine - [facility] blood-pressure [facility] reading, w/o diagnosis of htn G43.009 Migraine w/o aura, not intractable, w/o status migrainosus R29.6 Repeated falls Office Visit 04/01/2019 Ironkala Villagomez G43.009 Migraine w/o 8:30a Neurologic Pablo Jurado aura, not [facility] intractable, w/o status migrainosus F44.5 Conversion disorder with seizures or convulsions Office Visit 03/10/2019 1:00p Iron Neurologic Darion Mena F44.5 Conversion [facility] DYE TUB TENDER disorder with seizures or convulsions G43.009 Migraine w/o aura, not intractable, w/o status migrainosus Assessments Date Code Description Provider 09/01/2019 H66.93 Otitis media, unspecified, bilateral Belia Maria MD 06/30/2019 E66.01 Morbid (severe) obesity due to excess Darion Knaake, DYE TUB TENDER calories 06/30/2019 F44.5 Conversion disorder with seizures or Darion Knaake, DYE TUB TENDER convulsions 06/30/2019 G43.009 Migraine without aura, not intractable, Darion Knaake, DYE TUB TENDER without status migra 06/30/2019 Z68.43 Body mass index (BMI) 50.0-59.9, adult Darionshakira Mena, DYE TUB TENDER 06/23/2019 R03.0 Elevated blood-pressure reading, without Zsofia Ray, [facility] diagnosis of hypert 06/23/2019 E66.01 Morbid (severe) obesity due to excess Zsofia Ray, [facility] calories 06/23/2019 F44.5 Conversion disorder with seizures or Zsofia Ray, [facility] convulsions 06/23/2019 G47.33 Obstructive sleep apnea (adult) (pediatric) Zsofia Ray , [facility] 06/23/2019 E55.9 Vitamin D deficiency, unspecified Zsofia Ray, [facility] 05/26/2019 G43.009 Migraine without aura, not intractable, Darion Vincentke, DYE TUB TENDER without status migra 05/26/2019 E66.01 Morbid (severe) obesity due to excess Darion Knaake, DYE TUB TENDER calories 05/26/2019 Z79.899 Other director long term care (current) drug therapy Darionshakira Mena, DYE TUB TENDER 05/26/2019 F44.5 Conversion disorder with seizures or Darion Mnea, DYE TUB TENDER convulsions 04/27/2019 R03.0 Elevated blood-pressure reading, without Darion Kmaake, DYE TUB TENDER diagnosis of hypert 04/27/2019 G43.009 Migraine without aura, not intractable, Darion Mena, DYE TUB TENDER without status migra 04/27/2019 R29.6 Repeated falls Darion Mena, DYE TUB TENDER 04/27/2019 Z79.899 Other alf (current) drug therapy Darion Vincentke, DYE TUB TENDER 04/07/2019 R03.0 Elevated blood-pressure reading, without MOSHE Doherty diagnosis of hypert 04/07/2019 G43.009 Migraine without aura, not intractable, MOSHE Doherty without status migra 04/07/2019 R29.6 Repeated falls JENNIFER DohertyP 04/01/2019 G43.009 Migraine without aura, not intractable, Hernando Jurado M.D. without status migra 04/01/2019 F44.5 Conversion disorder with seizures or Hernando Jurado M.D. convulsions 03/10/2019 F44.5 Conversion disorder with seizures or Darion Mena, DYE TUB TENDER convulsions 03/10/2019 G43.009 Migraine without aura, not intractable, Darion Mena, DYE TUB TENDER without status migra Plan of Treatment Future Appointment(s):09/22/2019 1:00 pm - MOSHE Doherty at [facility] Internal Medicine - Ccmob09/01/2019 - Belia Maria MDH66.93 Otitis media, unspecified , bilateralNew Medication:Azithromycin 250 mg - Take 2 tablets on day 1, then 1 tab daily for days 2-5 Functional Status Description No Information Available Mental Status Description No Information Available Referrals Refer to Reason for Referral Status Appt Date [facility] Morbid obesity; Needs [facility] [address] [place] [address] [address] [place] [address] [phone]
[2019-09-03] MEDS ORDERED: Lorazepam PYXIS KEY PRN (18:56)
[2019-09-03] MEDS ORDERED: LORazepam INJ* 2 MG/ML 1 ML VIAL IV PUSH ONE (18:56)
[2019-09-03] MEDS ORDERED: NS 0.9% 1000 ML** 1,000 ML IV ONE (18:56)
[2019-09-03 19:04] LABS: ABS Basophils 0.1 10^3/ul (0-0.2); ABS Eosinophils 0.2 10^3/ul (0-0.6); ABS Monocytes 0.4 10^3/ul (0-0.8); ABS Neutrophils 5.1 10^3/ul (1.5-7.7); Eosinophil % 2.2 %; Hematocrit 40 % (35-47); Hemoglobin 13.6 g/dL (12.0-16.0); Lymphocyte % 26.1 %; Mean Corpuscular HGB Conc 34 g/dL (31-36); Mean Corpuscular Hemoglobin 33 pg (27-31); Mean Corpuscular Volume 97 fL (80-97); Mean Platelet Volume 7.2 fL (7.4-10.4); Nucleated Red Blood Cells % 0.1; Platelet Count 323 10^3/uL (150-450); Red Blood Count 4.15 10^6 /uL (3.70-4.87); Red Cell Distribution Width 14 % (10-15); White Blood Count 7.8 10^3/uL (3.5-10.8)
[2019-09-03] MEDS ORDERED: Lorazepam PYXIS KEY ONE (19:09)
[2019-09-03 19:22] LABS: Albumin 4.4 g/dL (3.2-5.2); Albumin/Globulin Ratio 1.4 (1-3); BUN/Creatinine Ratio 10.5 (8-20); Calcium 9.9 mg/dL (8.6-10.3); EGFR African American 80.1 (>60); EGFR Non-African American 66.2 (>60); Globulin 3.2 g/dL (2-4); Potassium 4.2 mmol/L (3.5-5.0); Total Bilirubin 0.6 mg/dL (0.2-1.0); Total Protein 7.6 g/dL (6.4-8.9)
[2019-09-03 20:50] VITALS: BP 133/71
--- NOTE | 2019-09-03 21:10 | ED ---
Dizziness - HPI Summary HPI Summary: 38 year old female presents to the ED with a complaint of intermittent dizziness that begaan 3 days ago. She is unable to ambulate during her dizziness , because it feels like "the world is spinning fast" and because her legs tighten up and feel weak bilaterally. She cannot stand up during these bouts, and usually falls to a crawl. Objects in her vision appear to be moving fast. She denies slurred speech but does have difficulty speaking. She has a history of vertigo, and her bouts usually occur 3 times a month. It has occurred more frequently in the last few days. She has a history of recent ear infection, history of seizure disorder, anxiety, and depression. She does not drink alcohol , smoke tobacco, or do recreational drugs. Medications reviewed. Allergies noted. - History Of Current Complaint Chief Complaint: EDDizziness Stated Complaint: dizzy Time Seen by Provider: 09/03/19 18:14 Hx Obtained From: Patient Onset/Duration: Still Present, Gradually Timing: Days - 3 days Severity Initially: Moderate Severity Currently: Moderate Character: Room Spinning, Dizzy Alleviating Factor(s): Rest Associated Signs And Symptoms: Positive: Inability to Walk - Allergies/Home Medications Allergies/Adverse Reactions: Allergies Allergy/AdvReac Type Severity Reaction Status Date / Time blueberry Allergy Severe Hives/Diff. Verified 08/26/19 10:56 Breathing/I tching diphenhydramine Allergy Severe Swelling Verified 08/26/19 10:56 [From Benadryl] paroxetine [From Paxil] Allergy Severe Swelling Verified 08/26/19 10:56 Penicillins Allergy Severe Shortness Verified 08/26/19 10:56 of Breath watermelon Allergy Severe Hives/Diff. Verified 08/26/19 10:56 Breathing/I tching amoxicillin [From Augmentin] Allergy Intermediate Hives Verified 08/26/19 10:56 clavulanic acid Allergy Intermediate Hives Verified 08/26/19 10:56 [From Augmentin] clindamycin Allergy Intermediate Hives Verified 08/26/19 10:56 formoterol [From Dulera] Allergy Intermediate Hives Verified 08/26/19 10:56 iohexol [From Omnipaque] Allergy Intermediate Hives Verified 08/26/19 10:56 metronidazole Allergy Intermediate Hives Verified 08/26/19 10:56 sertraline [From Zoloft] Allergy Intermediate Hives Verified 08/26/19 10:56 zonisamide Allergy Intermediate Hives Verified 08/26/19 10:56 pseudoephedrine Allergy Unknown Unknown Verified 08/26/19 10:56 Reaction Details acetaminophen [From Tylenol] Allergy dilusional Verified 08/26/19 10:56 coconut Allergy Hives/Diff. Verified 08/26/19 10:56 Breathing/I tching codeine Allergy Altered Verified 08/26/19 10:56 Mental Status guaifenesin [From Mucinex] Allergy Unknown Verified 08/26/19 10:56 Reaction Details latex Allergy Hives Verified 08/26/19 10:56 lemon oil Allergy Vomiting Verified 08/26/19 10:56 morphine Allergy See Comment Verified 08/26/19 10:56 pickle Allergy Intermediate Hives/Diff. Uncoded 08/26/19 10:56 Breathing/I tching Home Medications: Home Medications Albuterol 2.5MG/3ML (0.083%)* [Ventolin 2.5 MG/3 ML NEB.MAXIMILIANO*] 2.5 mg INH Q4HR PRN 09/03/19 [History Confirmed 09/03/19] Albuterol HFA INHALER* [Ventolin HFA Inhaler*] 2 puff INH Q4H PRN 09/03/19 [ History Confirmed 09/03/19] Cetirizine* [ZyrTEC 10 MG TAB*] 10 mg PO DAILY 09/03/19 [History Confirmed 09/03] Citalopram TAB* [CeleXA TAB*] 40 mg PO DAILY 09/03/19 [History Confirmed ] Doxepin (NF) 50 mg PO BEDTIME 09/03/19 [History Confirmed 09/03/19] Ferrous Gluconate TAB* [Fergon TAB*] 325 mg PO DAILY 09/03/19 [History Confirmed 09/03/19] Ferrous Sulfate TAB* 325 mg PO BID 09/03/19 [History Confirmed 09/03/19] Ibuprofen TAB* [Motrin TAB* 800 MG] 800 mg PO Q6H PRN 09/03/19 [History Confirmed 09/03/19] Levothyroxine TAB* [Synthroid TAB*] 75 mcg PO DAILY 09/03/19 [History Confirmed 09/03/19] Omeprazole CAP (NF) [Prilosec CAP* 20 MG] 20 mg PO DAILY 09/03/19 [History Confirmed 09/03/19] lamoTRIgine TAB(*) [LaMICtal TAB(*)] 200 mg PO BID 09/03/19 [History Confirmed 09/03/19] PMH/Surg Hx/FS Hx/Imm Hx Endocrine/Hematology History: Reports: Hx Diabetes - "pre diabetes", Hx Thyroid Disease, Hx Anemia Denies: Hx Unexplained Bleeding Cardiovascular History: Denies: Hx Aneurysm, Hx Angina, Hx Angioplasty, Hx Auto Implanted Cardiovert Defib, Hx Cardiac Arrest, Hx Cardiomegaly, Hx Congenital Heart Disease, Hx Congestive Heart Failure, Hx Coronary Artery Disease, Hx Deep Vein Thrombosis, Hx Embolism, Hx Hypercholesterolemia, Hx Hypotension, Hx Hypertension, Hx Myocardial Infarction, Hx Pacemaker/ICD, Hx Peripheral Vascular Disease, Hx Rheumatic Fever, Hx Syncope, Hx Valvular Heart Disease, Other Cardiovascular Problems/Disorders Respiratory History: Reports: Hx Asthma, Hx Chronic Bronchitis, Hx Chronic Obstructive Pulmonary Disease (COPD) Denies: Hx Cystic Fibrosis, Hx Lung Cancer, Hx Pleural Effusion, Hx Pneumonia , Hx Pulmonary Edema, Hx Pulmonary Embolism, Hx Seasonal Allergies, Hx Sleep Apnea, Other Respiratory Problems/Disorders GI History: Reports: Hx Gastroesophageal Reflux Disease - ON DAILY PROLOSEC Denies: Hx Gall Bladder Disease, Hx Gastrointestinal Bleed, Hx Ulcer, Hx Urosepsis History: Denies: Hx Kidney Stones, Hx Renal Disease Sensory History: Reports: Hx Contacts or Glasses Denies: Hx Cataracts, Hx Eye Injury, Hx Eye Prosthesis, Hx Glaucoma, Hx Legally Blind, Hx Macular Degeneration, Hx Vision Problem, Hx Deafness, Hx Hearing Aid, Hx Hearing Problem, Other Sensory Impairments Opthamlomology History: Reports: Hx Contacts or Glasses Denies: Hx Cataracts, Hx Eye Injury, Hx Eye Prosthesis, Hx Glaucoma, Hx Legally Blind, Hx Macular Degeneration, Hx Vision Problem, Other Sensory Impairments Neurological History: Reports: Hx Developmental Delay - 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 Mental health, Hx Bipolar Disorder Denies: Hx Post Traumatic Stress Disorder, Hx Schizophrenia, Hx Suicide Attempt, Hx Substance Abuse - Cancer History Cancer Type, Location and Year: seizure disorder - Surgical History Surgery Procedure, Year, and Place: Scalp Cystectomy May 2014, Abdominal Lipoma May 2014 Hx Anesthesia Reactions: No Infectious Disease History: No Infectious Disease History: Denies: Hx Clostridium Difficile, Hx Hepatitis, Hx Human Immunodeficiency Virus (HIV), Hx of Known/Suspected MRSA, Hx Shingles, Hx Tuberculosis, Hx Known/ Suspected VRE, Hx Known/Suspected VRSA, History Other Infectious Disease, Traveled Outside the [place] in Last 30 Days - Family History Known Family History: Positive: Cardiac Disease, Diabetes Negative: Renal Disease, Seizure Disorder - Social History Alcohol Use: None Hx Substance Use: No Substance Use Type: Reports: None Hx Tobacco Use: Yes Smoking Status (MU): Former Smoker Type: Cigarettes Have You Smoked in the Last Year: No Review of Systems Positive: Other - objects in vision appear to be moving fast Positive: Myalgia - legs tighten up when she tries to walk during episode. Neurological: Other - dizziness All Other Systems Reviewed And Are Negative: Yes Physical Exam - Summary Physical Exam Summary: Constitutional: Well-developed, Well-nourished, Alert. (-) Distressed Skin: Warm, Dry HENT: Normocephalic; Atraumatic Eyes: Conjunctiva normal Neck: Musculoskeletal ROM normal neck. (-) JVD, (-) Stridor, (-) Tracheal deviation Cardio: Rhythm regular, rate normal, Heart sounds normal; Intact distal pulses; Radial pulses are 2+ and symmetric. (-) Murmur Pulmonary/Chest wall: Effort normal. (-) Respiratory distress, (-) Wheezes, (-) Rales Abd: Soft, (-) tenderness, (-) Distension, (-) Guarding, (-) Rebound Musculoskeletal: (-) Edema Lymph: (-) Cervical adenopathy Neuro: Alert, Oriented x3 Psych: Mood and affect Normal Triage Information Reviewed: Yes Vital Signs On Initial Exam: Initial Vitals Temp Pulse Resp BP Pulse Ox 97.3 F 99 17 143/93 99 09/03/19 16:06 09/03/19 16:06 09/03/19 16:06 09/03/19 16:06 09/03/19 16:06 Vital Signs Reviewed: Yes Procedures - Sedation Patient Received Moderate/Deep Sedation with Procedure: No Diagnostics - Vital Signs Vital Signs Temp Pulse Resp BP Pulse Ox 09/03/19 20:47 98.9 F 91 16 133/71 97 09/03/19 20:00 85 98 09/03/19 19:32 16 09/03/19 19:00 87 98 09/03/19 18:49 90 122/99 100 09/03/19 18:19 90 133/88 98 09/03/19 18:17 86 99 09/03/19 16:06 97.3 F 99 17 143/93 99 - Laboratory Lab Results: Lab Results 09/03/19 09/03/19 Range/Units 18:44 18:45 WBC 7.8 (3.5-10.8) 10^3/uL RBC 4.15 (3.70-4.87) 10^6 /uL Hgb 13.6 (12.0-16.0) g/dL Hct 40 (35-47) % MCV 97 (80-97) fL MCH 33 H (27-31) pg MCHC 34 (31-36) g/dL RDW 14 (10-15) % Plt Count 323 (150-450) 10^3/uL MPV 7.2 L (7.4-10.4) fL Neut % (Auto) 65.2 % Lymph % (Auto) 26.1 % Whiteside % (Auto) 5.3 % Eos % (Auto) 2.2 % Baso % (Auto) 1.2 % Absolute Neuts (auto) 5.1 (1.5-7.7) 10^3/ul Absolute Lymphs (auto) 2.0 (1.0-4.8) 10^3/ul Absolute Monos (auto) 0.4 (0-0.8) 10^3/ul Absolute Eos (auto) 0.2 (0-0.6) 10^3/ul Absolute Basos (auto) 0.1 (0-0.2) 10^3/ul Absolute Nucleated RBC 0.0 10^3/ul Nucleated RBC % 0.1 Sodium 139 (135-145) mmol/L Potassium 4.2 (3.5-5.0) mmol/L Chloride 103 (101-111) mmol/L Carbon Dioxide 29 (22-32) mmol/L Anion Gap 7 (2-11) mmol/L BUN 10 (6-24) mg/dL Creatinine 0.95 (0.51-0.95) mg/dL Est GFR ( Amer) 80.1 (>60) Est GFR (Non-Af Amer) 66.2 (>60) BUN/Creatinine Ratio 10.5 (8-20) Glucose 113 H (70-100) mg/dL Calcium 9.9 (8.6-10.3) mg/dL Total Bilirubin 0.60 (0.2-1.0) mg/dL AST 29 (13-39) U/L ALT 28 (7-52) U/L Alkaline Phosphatase 96 (34-104) U/L Total Protein 7.6 (6.4-8.9) g/dL Albumin 4.4 (3.2-5.2) g/dL Globulin 3.2 (2-4) g/dL Albumin/Globulin Ratio 1.4 (1-3) Result Diagrams: 09/03/19 18:45 09/03/19 18:44 Lab Statement: Any lab studies that have been ordered have been reviewed, and results considered in the medical decision making process. Dizzy Course/Dx - Course Course Of Treatment: She is here with an episode of vertigo. Patient's had vertigo off and on for the past 2 days. Patient does have episodes in the past ; to this. Patient's symptoms have gone away in the past 2 days and then come back. Patient had an NIH stroke scale 0 upon arrival. Patient had Boner performed which is grossly unremarkable. Patient was given Ativan and IV fluids with vast improvement in her symptoms. Patient has inner ear issues as she is currently treated with antibiotics for otitis media. Patient was encouraged to follow up with ENT that she was given and to continue her meclizine/Z-Tj. - Diagnoses Provider Diagnoses: Vertigo Discharge ED - Sign-Out/Discharge Documenting (check all that apply): Patient Departure - dc - Discharge Plan Condition: Stable Disposition: HOME Patient Education Materials: Vertigo (ED) Referrals: Eron Manning MD [Medical Doctor] - Jose Bell NP [Primary Care Provider] - Additional Instructions: PLEASE FOLLOW UP WITH YOUR PRIMARY CARE DOCTOR IN 1-3 DAYS PLEASE CONTINUE YOUR MECLIZINE PLEASE RETURN IF YOU HAVE SLURRED SPEECH, WEAKNESS ON ONE SIDE OF YOUR BODY OR FACE, OR ANY OTHER CONCERNING SYMPTOM - Billing Disposition and Condition Condition: STABLE Disposition: Home - Attestation Statements Document Initiated by Sampson: Yes Documenting Scribe: Familia Alvarez Provider For Whom Sampson is Documenting (Include Credential): Yao Martínez MD Scribe Attestation: Familia Chavez, scribed for Yao Martínez MD on 09/03/19 at 2120. Scribe Documentation Reviewed: Yes Provider Attestation: The documentation as recorded by the Familia villalobos accurately reflects the service I personally performed and the decisions made by , Yao Martínez MD Status of Scribe Document: Viewed
== END 2019-09-03 20:19 | disposition home or self-care (01) ==
LOC: ED 16:02
DX: R42 Dizziness and giddiness (principal); J44.9 Chronic obstructive pulmonary disease, unspecified; D64.9 Anemia, unspecified; K21.9 Gastro-esophageal reflux disease without esophagitis; F41.9 Anxiety disorder, unspecified; R62.50 Unspecified lack of expected normal physiological development in childhood; Z87.891 Personal history of nicotine dependence; Z79.899 Other long term (current) drug therapy; Z88.5 Allergy status to narcotic agent; Z88.0 Allergy status to penicillin; Z88.8 Allergy status to other drugs, medicaments and biological substances; Z88.6 Allergy status to analgesic agent; Z88.1 Allergy status to other antibiotic agents; Z91.041 Radiographic dye allergy status; Z91.040 Latex allergy status
CPT/HCPCS: 36415; 80053; 85025; 96361; 96374; 99283; J2060

== ENCOUNTER 2019-10-28 12:34 | Emergency (ER) | payer OTHER ==
--- OUTSIDE RECORDS SUMMARY | 2019-10-28 12:38 | XMS REPORT | Continuity of Care Document ---
:1980 External Reference #:[id number] Author Name Darion Mena NP (transmitted by agent of provider Wendy Murphy) Address [address] [place] [address], [place] [address] Care Team Providers Name Role Phone Sari Vazquez MD - Dermatology Care Team Information Speed Runner [phone] Fatoumata Pritchard MD - Psychiatry Care Team Information Speed Runner Hernando Marin MD - Allergy & Care Team Information Speed Runner [phone] Immunology Eron Manning MD - Care Team Information Speed Runner [phone] Otolaryngology Yossi Lagos MD - Surgery Care Team Information Speed Runner [phone] [facility] Sleep Clinic - Sleep Disorder Care Team Information Speed Runner Diagnostic 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 Tablets daily for days 2-5 Vitamin D3 1 by mouth every 90tabs E55.9 Jose Ray, 06/23/2019 1000Unit day PRODUCT OWNER Tablets Doxepin HCL take two caps by 60caps G43.009 Clinton Blanco 06/21/2019 50mg mouth at night. Pablo Yadav Capsules Meclizine HCL one tablet twice a 60tabs Jose Bell, 05/10/2019 25mg day if too PRODUCT OWNER Tablets sedating reduce to one every night at bedtime Aimovig inject sq once a 1ml Clinton Blanco 05/07/2019 70mg/ml month Pablo Yadav Solution Auto-Inject Blood Pressure use daily to 1units G43.009 Jacksonmagaly Ray, 04/07/2019 Monitor Auto monitor bp daily PRODUCT OWNER Inflate Misc Walker Swivel use with 1units R29.6 Jose Bell, 04/07/2019 Wheels/5 Adjustment ambulation PRODUCT OWNER Holes/3" 3" Misc Lamotrigine take 2 tab by 120tabs Clinton Blanco 01/15/2019 200mg mouth in the Pablo Yadav Tablets morning and take 2 tabs at bedtime. Trueplus Lancets 30G use to test twice 100units Tawny Ferrari MD 2018 Ultra Thin daily or as needed 30G Misc - true metrix device. Fluticasone use 2 sprays in 16units J01.90 Jose Bell, 10/21/2018 Propionate each nostril one PRODUCT OWNER 50mcg/Act time a day Suspension Robitussin 12 Hour 5 milliliters by 89ml R42 Jose Bell, 10/21/2018 Cough Relief mouth twice a day PRODUCT OWNER 30mg/5ML as needed Suer Nasal [place] 12 Hour 2 sprays each 30ml J01.90 Jose Bell, 10/21/2018 nostril 2x daily PRODUCT OWNER 0.05% Solution as needed for congestion True Focus Self test blood twice 100units Tawny Ferrari MD 08/17/2018 Monitoring Blood daily or as Glucose Test Strips needed(true metrix device) Strips True Metrix Go Blood use daily as 1units Jose Bell, 08/17/2018 Glucose Meter directed last PRODUCT OWNER visit: 08/19/18 w/Device Kit Ventolin HFA 2 puffs by mouth 8gm J45.30 Jose Bell, 07/15/2018 four times a day PRODUCT OWNER 108(90Base) mcg/Act as needed Aerosol Citalopram take one tablet by 30tabs Jose Bell, 03/12/2018 Hydrobromide mouth every day PRODUCT OWNER 40mg Tablets Ibuprofen take one tablet 90tabs Jose Bell, 06/24/2016 800mg daily as needed. PRODUCT OWNER Tablets Omeprazole take one capsule 30caps K21.9 Tawny Ferrari MD 09/15/2015 20mg by mouth every day Capsules DR PETERSON Cetirizine HCL 1 by mouth every 30tabs Jose Morochok, 03/31/2015 day PRODUCT OWNER 10mg Tablets Ferrous Gluconate take one tablet by 180tabs D50.9 Tawny Ferrari MD 2013 mouth twice daily 324(38Fe) mg Tablets Albuterol Sulfate inhale the 100units Jose Bell, 11/02/2012 contents of one PRODUCT OWNER (2.5mg/3ML) 0.083% vial via nebulizer Nebulizer every 4 to 6 hours as needed Levothyroxine Sodium Take 1 Tablet By 90tabs E03.9 Jose Bell, 00/00/ 0000 Mouth Once Daily PRODUCT OWNER 75mcg Tablets History Medications Azithromycin take 2 tablets on 6tabs H66.93 Belia 09/01/2019 - 250mg day 1, then 1 tab MD Crow 09/05/2019 Tablets daily for days 2-5 Doxepin HCL 60caps Clinton Blanco 05/26/2019 - [...] PM) Aimovig inject sq once a 1ml Clinton PearceBryant 04/27/2019 - 70mg/ml month Pablo Yadav 05/03/2019 Solution Auto-Inject Aimovig inject sq once a 1ml G43Iain PearceBryant 04/27/2019 - 70mg/ml month Pablo Yadav 04/27/2019 Solution Auto-Inject Prednisone 3 tabs for 1 day 6tabs Clinton PortiaBryant 04/07/2019 - 20mg then 2 tabs for 1 Pablo Yadav 07/08/2019 Tablets day then 1 tab for 1 day Immunizations CPT Code Status Date Vaccine Reaction Lot # [id number] Given 09/15/2019 Influ Vacc Quadrivalent pharmacy administered Preser/Antibiotic Free Im Use Flucelvax 85992 Given 08/19/2018 Influenza Virus Vaccine, [id number] Quadrivalent, Split, Preservative Free 36743 Given 07/28/2018 Influenza Virus Vaccine, Quadrivalent, Split, Preservative Free 53883 Given 07/28/2018 Influenza Virus Vaccine, Quadrivalent, Split, Preservative Free 56198 Given 01/21/2018 Influenza Virus Vaccine, [id number] Quadrivalent, Split, Preservative Free 38891 Given 10/16/2017 Pneumonia Vaccine no reaction, pt [id number] tolerated well Q2035 Given 10/16/2015 Afluria Vaccine 29102 Given 08/20/2012 Tdap - [id number] Tetanus/Diptheria/Acellul ar Pertussis Q2038 Given 07/20/2012 Fluzone Vaccine [id number] Ordered 07/04/2016 Afluria Vaccine Vital Signs Date Vital Result Comment 10/05/2019 11:09am Height 67 inches 5'7" Weight 366.00 lb Heart Rate 78 /min BP Systolic 146 mmHg BP Diastolic 88 mmHg BMI (Body Mass Index) 57.3 kg/m2 09/01/2019 2:51pm Height 67 inches 5'7" Weight 368.00 lb Heart Rate 90 /min BP Systolic Sitting 134 mmHg BP Diastolic Sitting 79 mmHg Body Temperature 97.7 F O2 % BldC Oximetry 97 % BMI (Body Mass Index) 57.6 kg/m2 Results Test Acquired Date Facility Test Result H/L Range Note CBC Auto 09/03/2019 [facility] White Blood 7.8 10^3/uL Normal 3.5-10.[address] [place] [address] [phone] Red Blood Count 4.15 10^6/uL Normal 3.70-4.87 Hemoglobin 13.6 g/dL Normal 12.0-16.0 Hematocrit 40 % Normal 35-47 Mean Corpuscular Volume 97 fL Normal 80-97 Mean Corpuscular Hemoglobin 33 pg High 27-31 Mean Corpuscular HGB Conc 34 g/dL Normal 31-36 Red Cell Distribution Width 14 % Normal 10-15 Platelet Count 323 10^3/uL Normal 150-450 Mean Platelet Volume 7.2 fL Low 7.4-10.4 Abs Neutrophils 5.1 10^3/uL Normal 1.5-7.7 Abs Lymphocytes 2.0 10^3/uL Normal 1.0-4.8 Abs Monocytes 0.4 10^3/uL Normal 0-0.8 Abs Eosinophils 0.2 10^3/uL Normal 0-0.6 Abs Basophils 0.1 10^3/uL Normal 0-0.2 Abs Nucleated RBC 0.0 10^3/uL Granulocyte % 65.2 % Lymphocyte % 26.1 % Monocyte % 5.3 % Eosinophil % 2.2 % Basophil % 1.2 % Nucleated Red Blood Cells % 0.1 Comp Metabolic 09/03/2019 [facility] Sodium 139 mmol/L Normal 135-[address] [place] [address] [phone] Potassium 4.2 mmol/L Normal 3.5-5.0 Chloride 103 mmol/L Normal 101-111 Co2 Carbon Dioxide 29 mmol/L Normal 22-32 Anion Gap 7 mmol/L Normal 2-11 Glucose 113 mg/dL High 70-100 Blood Urea Nitrogen 10 mg/dL Normal 6-24 Creatinine 0.95 mg/dL Normal 0.51-0.95 BUN/Creatinine Ratio 10.5 Normal 8-20 Calcium 9.9 mg/dL Normal 8.6-10.3 Total Protein 7.6 g/dL Normal 6.4-8.9 Albumin 4.4 g/dL Normal 3.2-5.2 Globulin 3.2 g/dL Normal 2-4 Albumin/Globulin Ratio 1.4 Normal 1-3 Total Bilirubin 0.60 mg/dL Normal 0.2-1.0 Alkaline Phosphatase 96 U/L Normal 34-104 Alt 28 U/L Normal 7-52 Ast 29 U/L Normal 13-39 Egfr Non- 66.2 >60 Egfr 80.1 >60 1 Laboratory test 08/26/2019 [facility] Point of Care 131 mg/dL High 70-100 2 finding [address] [facility] [place] [address] [phone] Urinalysis 05/13/2019 [facility] Urine Color Yellow Profile [address] [place] [address] [phone] Urine Appearance Cloudy Urine Specific Forest 1.017 Normal 1.010-1.030 Urine pH 7.0 Normal 5-9 Urine Urobilinogen Negative Negative Urine Ketones Negative Negative Urine Protein Negative Negative Urine Leukocytes Negative Negative Urine Blood Negative Negative Urine Nitrite Negative Negative Urine Bilirubin Negative Negative Urine Glucose Negative Negative Laboratory test 05/13/2019 [facility] Lactic Acid 1.4 mmol/L Normal 0.5-2.0 3 finding [address] [place] [address] [phone] CBC Auto Diff 05/13/2019 [facility] White Blood 8.5 10^3/uL Normal 3.5-10.8 [address] [facility] [address] [phone] Red Blood Count 3.80 10^6/uL Normal 3.70-4.87 [...] Blood Cells % 0.0 Comp Metabolic 05/13/2019 [facility] Sodium 137 mmol/L Normal 135-[address] [place] [address] [phone] Potassium 4.1 mmol/L Normal 3.5-5.0 Chloride 106 [...] Egfr Non- 84.4 >60 Egfr 102.1 >60 4 Laboratory test 05/13/2019 [facility] Magnesium 1.8 mg/dL Low 1.9-2.[address] [place] [address] [phone] HCG < 0.60 mIU/mL 5 Laboratory 05/10/2019 [facility] Lamotrigine 10.8 2.5 - 6 test finding [address] [facility] (Lamictal) g/mL 15.0 [place] [address] [phone] Inr/Protime 05/01/2019 [facility] Inr 1.00 Normal 0.82-1.[address] [place] [address] [phone] CBC Auto Diff 05/01/2019 [facility] White Blood 8.3 Normal 3.5 -10.[address] Count 10^3/[place] [address] [phone] Red Blood Count 3.93 10^6/uL Normal 3.70-4.87 [...] Red Blood Cells % 0.1 Comp Metabolic 05/01/2019 [facility] Sodium 140 mmol/L Normal 135-[address] [place] [id number] [phone] Potassium 4.4 mmol/L Normal 3.5-5.0 Chloride 107 [...] Non- 79.6 >60 Egfr 96.3 >60 8 Laboratory test 05/01/2019 [facility] Magnesium 2.0 mg/dL Normal 1.9-2.[address] [place] [address] [phone] Alcohol < 10 mg/dL Normal <10 TSH (Thyroid Stim Horm) 2.34 mcIU/mL Normal 0.34-5.60 Urinalysis Profile 05/01/2019 [facility] Urine Color Yellow [address] [place] [address] [phone] Urine Appearance Clear Urine Specific Forest 1.020 Normal 1.010-1.030 Urine pH 7.0 Normal [...] Epithelial Cell Present Abnormal Absent Urine Drug 05/01/2019 [facility] Urine None Detected None Detect SCR ED & [address] [facility] [place] [address] Screen [phone] Urine Barbiturates Screen None Detected None Detect Urine Benzodiazepine Screen None Detected None Detect Urine Cannabinoids Screen None Detected None Detect Urine Cocaine Screen None Detected None Detect Urine Opiates Screen None Detected None Detect Urine Phencyclidine Screen None Detected None Detect 9 Urine Culture And 05/01/2019 [facility] Urine Culture SEE RESULT [address] [place] [address] [phone] 1 Because ethnic data is not always [...] 5 Kidney failure <15 (or dialysis) 2 Consulting Psychiatrist: [id number] 3 [facility] Severe Sepsis and Septic Shock Management [...] levels of up to 20 mIU/mL 6 ADDITIONAL INFORMATION This test was developed and its performance characteristics determined by [facility] in a manner consistent with CLIA requirements. This test has not been cleared or approved by the U.S. Food and Drug Administration. Test Performed by: [facility] [address] [place] [address] 7 Standard intensity warfarin therapeutic range: 2.0-3.0 High intensity warfarin therapeutic range: 2.5-3.5 8 Because ethnic data is not always [...] 5 Kidney failure <15 (or dialysis) 9 The urine specimen was tested at the listed cutoffs: Drug class test level (ng/mL) Amphetamines 500 Barbiturates 200 Benzodiazepine metabolites 200 Cocaine metabolites 150 Cannabinoids 50 Opiates 300 Pcp 25 Specimen was received without chain of custody. Results should be used for medical purposes only. 10 SEE RESULT BELOW Name: GINETTEDEAN L : [address]: Marito Shaikh MD Acct: [id number] Unit: [id number] AGE: 38 Location: ED Re05/01/19 SEX: F Status: DEP ER SPEC: [id number] DEBIBE: 05/01/19-[address] [facility] [address]: Marito Shaikh MD REQ: [id number] RECD: 05/01/191326 STATUS: COMP [facility] : Jose Bell ETL BI DEVELOPER _ SOURCE: URINE SPDESC: ORDERED: Urine Culture Procedure Result Reported Site Urine Culture Final 05/03/19- 823 ML Organism 1 KLEBSIELLA PNEUMONIAE Thrall Count 10-25,000 (Moderate) CFU/ML 1. KLEBSIELLA PNEUMONIAE [...] . END OF REPORT DEPARTMENT OF PATHOLOGY, [address] [place] [address] Ty Guo M.D. Director [facility] # [id number] Procedures Description No Information Available Medical Devices Description No Information Available Encounters Type Date Location Provider Dx Diagnosis Office Visit 06/30/2019 [facility] Darion Mena, JANNIE E66.01 Morbid ( severe) 2:30p [facility] obesity due to excess calories F44.5 Conversion disorder with seizures or convulsions G43.009 Migraine w/o aura, not intractable, w/o status migrainosus Z68.43 Body mass index (BMI) 50.0-59.9, adult Office Visit 06/23/2019 2:20p [facility] Internal Zsofia Ray, R03.0 Ele[facility]ated Medicine - PRODUCT OWNER blood-pressure [facility] reading, w/o diagnosis of htn E66.01 Morbid (severe) obesity due to excess calories F44.5 Conversion disorder with seizures or convulsions G47.33 Obstructive sleep apnea (adult) (pediatric) E55.9 Vitamin D deficiency, unspecified Office Visit 05/26/2019 1:00p [facility] Darion Mena, G43.009 Migraine w/o aura, Neurologic ETL BI DEVELOPER not intractable, [facility] w/o status migrainosus E66.01 Morbid (severe) obesity due to excess calories 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 F44.5 Conversion disorder with seizures or convulsions Office Visit 04/27/2019 1:00p [facility] Darion Mena, R03.0 Elevated Neurologic ETL BI DEVELOPER blood-pressure [facility] reading, w/o diagnosis of htn G43.009 Migraine w/o aura, not intractable, w/o status migrainosus R29.6 Repeated falls Z79.899 Other group home (current) drug therapy Office Visit 04/07/2019 11:00a [facility] Internal Andreaofimagaly Bell, R03.0 Elevated Medicine - PRODUCT OWNER blood-pressure [facility] reading, w/o diagnosis of htn G43.009 Migraine w/o aura, not intractable, w/o status migrainosus R29.6 Repeated falls Assessments Date Code Description Provider 10/05/2019 R42 Dizziness and giddiness Darion Mena NP 10/05/2019 F44.5 Conversion disorder with seizures or Darion Mena, ETL BI DEVELOPER convulsions 10/05/2019 G43.009 Migraine without aura, not intractable, Darion Knaake, ETL BI DEVELOPER without status migra 10/05/2019 G47.33 Obstructive sleep apnea (adult) (pediatric) Darion Mena, ETL BI DEVELOPER 09/01/2019 H66.93 Otitis media, unspecified, bilateral Belia Maria MD 09/01/2019 R05 Cough Belia Maria MD 09/01/2019 R42 Dizziness and giddiness Belia Maria MD 06/30/2019 E66.01 Morbid (severe) obesity due to excess calories Darion Mena , ETL BI DEVELOPER 06/30/2019 F44.5 Conversion disorder with seizures or Darion Kmaake, ETL BI DEVELOPER convulsions 06/30/2019 G43.009 Migraine without aura, not intractable, Darionshakira Mena, ETL BI DEVELOPER without status migra 06/30/2019 Z68.43 Body mass index (BMI) 50.0-59.9, adult Darion Mena, ETL BI DEVELOPER 06/23/2019 R03.0 Elevated blood-pressure reading, without Zsofia Ray, PRODUCT OWNER diagnosis of hypert 06/23/2019 E66.01 Morbid (severe) obesity due to excess calories Zsofia Ray, PRODUCT OWNER 06/23/2019 F44.5 Conversion disorder with seizures or Zsofia Ray, PRODUCT OWNER convulsions 06/23/2019 G47.33 Obstructive sleep apnea (adult) (pediatric) Zsofia Ray , PRODUCT OWNER 06/23/2019 E55.9 Vitamin D deficiency, unspecified Zsofia Ary, PRODUCT OWNER 05/26/2019 G43.009 Migraine without aura, not intractable, Darion Mena, ETL BI DEVELOPER without status migra 05/26/2019 E66.01 Morbid (severe) obesity due to excess calories Darion Mena , ETL BI DEVELOPER 05/26/2019 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 Darion Mena, ETL BI DEVELOPER 05/26/2019 F44.5 Conversion disorder with seizures or Darion Rajesh, ETL BI DEVELOPER convulsions 04/27/2019 R03.0 Elevated blood-pressure reading, without Darion Knaake, ETL BI DEVELOPER diagnosis of hypert 04/27/2019 G43.009 Migraine without aura, not intractable, Darion Mena, ETL BI DEVELOPER without status migra 04/27/2019 R29.6 Repeated falls Darionshakira Kaurkaren, ETL BI DEVELOPER 04/27/2019 Z79.899 Other group home (current) drug therapy Darion Mena NP 04/07/2019 R03.0 Elevated blood-pressure reading, without MOSHE Doherty diagnosis of hypert 04/07/2019 G43.009 Migraine without aura, not intractable, MOSHE Doherty without status migra 04/07/2019 R29.6 Repeated falls MOSHE Doherty Plan of Treatment Future Appointment(s):12/15/2019 11:30 am - Darion Mena NP at [facility]10/06/2019 1:00 pm - MOSHE Doherty at [facility] Internal Medicine - [facility] Functional Status Description No Information Available Mental Status Description No Information Available Referrals Refer to Reason for Referral Status Appt Date [facility] Morbid obesity; Needs Received Partial Living baratric consult [address] [facility] [address] [place] [id number] [phone]
[2019-10-28 12:43] VITALS: BP 124/93
--- NOTE | 2019-10-28 13:02 | UC ---
Dental HPI - HPI Summary HPI Summary: Patient is a 31-year-old. Presents with for complaining of right lower molar tooth pain 3 days that she states has been gradually worsening. Patient notes that on Friday she "popped a thingy" next to the affected tooth and " green stuff" came out. Denies any purulent drainage since. States that pain is radiating to her ears now that she has had bilateral pain in both ears for over a week. Denies pain in jaw. Denies facial swelling. Denies fever and chills. Denies nausea and vomiting. Patient states she has been taking ibuprofen without much relief. Patient states she called her dentist who could not get her in until next Friday. - History of Current Complaint Chief Complaint: UCDentalProblem Stated Complaint: DENTAL PAIN Hx Obtained From: Patient Hx Last Menstrual Period: current Onset/Duration: Gradual Onset, Lasting Days Pain Intensity: 9 Pain Scale Used: 0-10 Numeric - Allergies/Home Medications Allergies/Adverse Reactions: Allergies Allergy/AdvReac Type Severity Reaction Status Date / Time blueberry Allergy Severe Hives/Diff. Verified 10/28/19 12:44 Breathing/I tching diphenhydramine Allergy Severe Swelling Verified 10/28/19 12:44 [From Benadryl] paroxetine [From Paxil] Allergy Severe Swelling Verified 10/28/19 12:44 Penicillins Allergy Severe Shortness Verified 10/28/19 12:44 of Breath watermelon Allergy Severe Hives/Diff. Verified 10/28/19 12:44 Breathing/I tching amoxicillin [From Augmentin] Allergy Intermediate Hives Verified 10/28/19 12:44 clavulanic acid Allergy Intermediate Hives Verified 10/28/19 12:44 [From Augmentin] formoterol [From Dulera] Allergy Intermediate Hives Verified 10/28/19 12:44 iohexol [From Omnipaque] Allergy Intermediate Hives Verified 10/28/19 12:44 metronidazole Allergy Intermediate Hives Verified 10/28/19 12:44 sertraline [From Zoloft] Allergy Intermediate Hives Verified 10/28/19 12:44 zonisamide Allergy Intermediate Hives Verified 10/28/19 12:44 pseudoephedrine Allergy Unknown Unknown Verified 10/28/19 12:44 Reaction Details acetaminophen [From Tylenol] Allergy dilusional Verified 10/28/19 12:44 coconut Allergy Hives/Diff. Verified 10/28/19 12:44 Breathing/I tching codeine Allergy Altered Verified 10/28/19 12:44 Mental Status guaifenesin [From Mucinex] Allergy Unknown Verified 10/28/19 12:44 Reaction Details latex Allergy Hives Verified 10/28/19 12:44 lemon oil Allergy Vomiting Verified 10/28/19 12:44 morphine Allergy See Comment Verified 10/28/19 12:44 pickle Allergy Intermediate Hives/Diff. Uncoded 10/28/19 12:44 Breathing/I tching Home Medications: Home Medications Am[facility]ig MONTHLY 10/28/19 [History] PMH/Surg Hx/FS Hx/Imm Hx Other History Of: Negative For: HIV, Hepatitis B, Hepatitis C - Surgical History Surgical History: Yes Surgery Procedure, Year, and Place: Scalp Cystectomy May 2014, Abdominal Lipoma May 2014 - Family History Known Family History: Positive: Cardiac Disease, Diabetes Negative: Renal Disease, Seizure Disorder - Social History Alcohol Use: None Substance Use Type: None Smoking Status (MU): Former Smoker Type: Cigarettes Have You Smoked in the Last Year: No - Immunization History Most Recent Influenza Vaccination: Fall 2014 Most Recent Tetanus Shot: 2014 Most Recent Pneumonia Vaccination: unknown Review of Systems All Other Systems Reviewed And Are Negative: Yes Constitutional: Positive: Negative. Negative: Fever, Chills Skin: Positive: Negative ENT: Positive: Dental Pain - Right lower molar pain, Ear Ache - Bilateral ear pain 1 week. Negative: Sinus Pain/Tenderness Respiratory: Positive: Negative Cardiovascular: Positive: Negative Gastrointestinal: Positive: Negative. Negative: Vomiting, Nausea Musculoskeletal: Positive: Negative. Negative: Arthralgia, Edema Neurological: Positive: Negative Physical Exam Triage Information Reviewed: Yes Appearance: Well-Appearing, No Pain Distress, Well-Nourished Vital Signs: Initial Vital Signs Temp 98.1 F 10/28/19 12:38 Pulse 97 10/28/19 12:38 Resp 16 10/28/19 12:38 BP 124/93 10/28/19 12:38 Pulse Ox 96 10/28/19 12:38 Vital Signs Reviewed: Yes Eyes: Positive: Conjunctiva Clear ENT: Positive: Hearing grossly normal, Pharynx normal, TMs normal, Dental tenderness, Uvula midline, Other - Bilateral tenderness ears when tugging on pinna. Bilateral erythema and edema noted of the EACs. No drainage or fluid noted.. Negative: Nasal congestion, TM bulging, TM red, Tonsillar swelling, Tonsillar exudate, Trismus Dental: Positive: Percussion Tenderness @ - Tooth #30, Gross Decay/Caries @ - Tooth #30, Dental Fracture @ - Tooth #30, Cellulitis @ - Right lower gingiva. Negative: Abscess @, Cervical Lymphadenopathy, Bleeding Neck exam: Normal Neck: Positive: Supple, Nontender, No Lymphadenopathy Respiratory Exam: Normal Respiratory: Positive: Lungs clear, Normal breath sounds, No respiratory distress Cardiovascular Exam: Normal Cardiovascular: Positive: RRR Musculoskeletal: Positive: ROM Intact - Normal range of motion of mandible, No Edema Neurological: Positive: Alert Psychological: Positive: Age Appropriate Behavior Skin Exam: Normal Dental Complaint Course/Dx - Course Course Of Treatment: Patient with tender, fractured tooth #30 with surrounding erythema of gingiva. No abscess noted on exam. Patient VS normal. Patient with penicillin allergy so I treated with clindamycin which she stated she does not have an allergy to. Provided her with viscous lidocaine to apply to use for pain relief. Instructed to continue with ibuprofen for pain and fever relief. Instructed to also use saltwater gargles. Instructed the patient to be sure to follow up with her dentist next week for further evaluation of the tooth. Instructed patient to go to nearest ED for any new or worsening symptoms. Patient voiced understanding and agreed with the treatment plan. - Differential Dx/Diagnosis Differential Diagnosis/Dx: Dental Caries, Gingivitis, Odontogenic Pain Provider Diagnosis: Infected dental caries, Fractured tooth Discharge ED - Sign-Out/Discharge Documenting (check all that apply): Patient Departure All imaging exams completed and their final reports reviewed: No Studies - Discharge Plan Condition: Stable Disposition: HOME Prescriptions: Clindamycin Cap(NF) [Clindamycin Cap 300 mg Cap(NF)] 300 mg PO QID #28 cap Ofloxacin 0.3% (Ear Drop)* [Floxin 0.3% OTIC.MAXIMILIANO (Ear Drop)] 5 drop BOTH EARS DAILY 7 Days #1 btl Patient Education Materials: Otitis Externa (ED), Toothache (ED) Referrals: Jose Bell MOBILE DEVELOPMENT MANAGER [Primary Care Provider] - If Needed Additional Instructions: As discussed, take Clindamycin as prescribed for your dental infection. Do not stop taking the antibiotic. While taking this antibiotic, it is recommended that you eat vietnamese yogurt or take a probiotic over the counter to avoid an infectious diarrhea called C. diff. You may use ibuprofen as directed for pain relief. It is important that you follow up with you dentist next week as scheduled. Go to the emergency room if you experience fever greater than 102, severe pain, nausea, or vomiting. Place 5 drops of the antibiotic ear drops in each ear daily for 7 days for treatment of outer ear infection. Follow up with your PCP if symptoms persist. - Billing Disposition and Condition Condition: STABLE Disposition: Home
[2019-10-28] MEDS ORDERED: Lidocaine 2% VISCOUS* 15 ML UDC SWISH SPIT ONE (13:16)
== END 2019-10-28 13:38 | disposition home or self-care (01) ==
LOC: UCEAST 12:34
DX: K02.9 Dental caries, unspecified (principal); S02.5XXA Fracture of tooth (traumatic), initial encounter for closed fracture; X58.XXXA Exposure to other specified factors, initial encounter; H92.03 Otalgia, bilateral; Y92.9 Unspecified place or not applicable; Z88.0 Allergy status to penicillin; Z88.6 Allergy status to analgesic agent; Z88.8 Allergy status to other drugs, medicaments and biological substances; Z91.09 Other allergy status, other than to drugs and biological substances; Z88.1 Allergy status to other antibiotic agents; Z88.5 Allergy status to narcotic agent; Z91.040 Latex allergy status; Z91.018 Allergy to other foods; Z87.891 Personal history of nicotine dependence
CPT/HCPCS: 99212; G0463

== ENCOUNTER 2019-11-03 12:19 | Emergency (ER) | payer OTHER ==
[2019-11-03] MEDS ORDERED: Ondansetron ODT TAB* 4 MG SL ONE (12:50)
[2019-11-03] MEDS ORDERED: hydrOXYzine HCL TAB* 25 MG PO ONE (12:50)
[2019-11-03 15:18] VITALS: BP 141/88
--- NOTE | 2019-11-03 15:42 | ED ---
Dizziness - HPI Summary HPI Summary: Patient is a 39-year-old female with a history of borderline diabetes, seizure activity, vertigo presenting to the ED with symptoms of vertigo. She states this somehow feels different and feels it may be related to her sugar. Patient states symptoms are unprecedented 3-4 days. Denies any headache. She endorses nausea, but denies any vomiting. Continues to eat and drink okay. She denies any fevers, sweats, chills or recent illness. She states symptoms are worse with ambulation, better with rest. Symptoms are worse with turning her head swiftly from side to side. She has taken 50 mg meclizine at home 3 times a day for the past 3-4 days without relief. Patient states she feels this is related to her glucose and/or her blood pressure as she has problems with both. She's been taking all of her medication as prescribed. She denies any cough, congestion. She has not been checking her sugars regularly at home, but states they typically between 100-150 per her PCP. Patient has been using a walker for ambulation over the past few years as needed. - History Of Current Complaint Chief Complaint: EDDizziness Stated Complaint: DIZZY AND LIGHT HEADED PER PT Time Seen by Provider: 11/03/19 12:26 Hx Obtained From: Patient Timing: Constant Severity Initially: Mild Severity Currently: Mild Character: Room Spinning Aggravating Factor(s): Nothing Alleviating Factor(s): Nothing Associated Signs And Symptoms: Positive: Negative - Risk Factors Cardiac Risk Factors: Negative CVA Risk Factor: Negative - Allergies/Home Medications Allergies/Adverse Reactions: Allergies Allergy/AdvReac Type Severity Reaction Status Date / Time blueberry Allergy Severe Hives/Diff. Verified 11/03/19 12:25 Breathing/I tching diphenhydramine Allergy Severe Swelling Verified 11/03/19 12:25 [From Benadryl] paroxetine [From Paxil] Allergy Severe Swelling Verified 11/03/19 12:25 Penicillins Allergy Severe Shortness Verified 11/03/19 12:25 of Breath watermelon Allergy Severe Hives/Diff. Verified 11/03/19 12:25 Breathing/I tching amoxicillin [From Augmentin] Allergy Intermediate Hives Verified 11/03/19 12:25 clavulanic acid Allergy Intermediate Hives Verified 11/03/19 12:25 [From Augmentin] formoterol [From Dulera] Allergy Intermediate Hives Verified 11/03/19 12:25 iohexol [From Omnipaque] Allergy Intermediate Hives Verified 11/03/19 12:25 metronidazole Allergy Intermediate Hives Verified 11/03/19 12:25 sertraline [From Zoloft] Allergy Intermediate Hives Verified 11/03/19 12:25 zonisamide Allergy Intermediate Hives Verified 11/03/19 12:25 pseudoephedrine Allergy Unknown Unknown Verified 11/03/19 12:25 Reaction Details acetaminophen [From Tylenol] Allergy dilusional Verified 11/03/19 12:25 coconut Allergy Hives/Diff. Verified 11/03/19 12:25 Breathing/I tching codeine Allergy Altered Verified 11/03/19 12:25 Mental Status guaifenesin [From Mucinex] Allergy Unknown Verified 11/03/19 12:25 Reaction Details latex Allergy Hives Verified 11/03/19 12:25 lemon oil Allergy Vomiting Verified 11/03/19 12:25 morphine Allergy See Comment Verified 11/03/19 12:25 pickle Allergy Intermediate Hives/Diff. Uncoded 11/03/19 12:25 Breathing/I tching PMH/Surg Hx/FS Hx/Imm Hx Previously Healthy: Yes Endocrine/Hematology History: Reports: Hx Diabetes - "pre diabetes", Hx Thyroid Disease, Hx Anemia Denies: Hx Unexplained Bleeding Cardiovascular History: Denies: Hx Aneurysm, Hx Angina, Hx Angioplasty, Hx Auto Implanted Cardiovert Defib, Hx Cardiac Arrest, Hx Cardiomegaly, Hx Congenital Heart Disease, Hx Congestive Heart Failure, Hx Coronary Artery Disease, Hx Deep Vein Thrombosis, Hx Embolism, Hx Hypercholesterolemia, Hx Hypotension, Hx Hypertension, Hx Myocardial Infarction, Hx Pacemaker/ICD, Hx Peripheral Vascular Disease, Hx Rheumatic Fever, Hx Syncope, Hx Valvular Heart Disease, Other Cardiovascular Problems/Disorders Respiratory History: Reports: Hx Asthma, Hx Chronic Bronchitis, Hx Chronic Obstructive Pulmonary Disease (COPD) Denies: Hx Cystic Fibrosis, Hx Lung Cancer, Hx Pleural Effusion, Hx Pneumonia , Hx Pulmonary Edema, Hx Pulmonary Embolism, Hx Seasonal Allergies, Hx Sleep Apnea, Other Respiratory Problems/Disorders GI History: Reports: Hx Gastroesophageal Reflux Disease - ON DAILY PROLOSEC Denies: Hx Gall Bladder Disease, Hx Gastrointestinal Bleed, Hx Ulcer, Hx Urosepsis History: Denies: Hx Kidney Stones, Hx Renal Disease Sensory History: Reports: Hx Contacts or Glasses Denies: Hx Cataracts, Hx Eye Injury, Hx Eye Prosthesis, Hx Glaucoma, Hx Legally Blind, Hx Macular Degeneration, Hx Vision Problem, Hx Deafness, Hx Hearing Aid, Hx Hearing Problem, Other Sensory Impairments Opthamlomology History: Reports: Hx Contacts or Glasses Denies: Hx Cataracts, Hx Eye Injury, Hx Eye Prosthesis, Hx Glaucoma, Hx Legally Blind, Hx Macular Degeneration, Hx Vision Problem, Other Sensory Impairments Neurological History: Reports: Hx Developmental Delay - 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., Hx Migraine - OCCASSIONAL, USES [facility], Hx Seizures - SINCE 2004; LAST WAS 04/2014, Other Neuro Impairments/Disorders - epilepsy Denies: Hx Dementia, Hx Transient Ischemic Attacks (TIA) Psychiatric History: Reports: Hx Anxiety - ON MEDS PRN, Hx Depression, Hx Community Mental Health Tx - not currently; previously used [facility] and [facility], Hx Bipolar Disorder Denies: Hx Post Traumatic Stress Disorder, Hx Schizophrenia, Hx Suicide Attempt, Hx Substance Abuse - Cancer History Cancer Type, Location and Year: seizure disorder - Surgical History Surgery Procedure, Year, and Place: Scalp Cystectomy May 2014, Abdominal Lipoma May 2014 Hx Anesthesia Reactions: No - Immunization History Hx Pertussis Vaccination: No Immunizations Up to Date: Yes Infectious Disease History: No Infectious Disease History: Denies: Hx Clostridium Difficile, Hx Hepatitis, Hx Human Immunodeficiency Virus (HIV), Hx of Known/Suspected MRSA, Hx Shingles, Hx Tuberculosis, Hx Known/ Suspected VRE, Hx Known/Suspected VRSA, History Other Infectious Disease, Traveled Outside the [place] in Last 30 Days - Family History Known Family History: Positive: Cardiac Disease, Diabetes Negative: Renal Disease, Seizure Disorder - Social History Occupation: Unemployed Lives: Alone Alcohol Use: None Hx Substance Use: No Substance Use Type: Reports: None Hx Tobacco Use: Yes Smoking Status (MU): Former Smoker Type: Cigarettes Have You Smoked in the Last Year: No Review of Systems Negative: Fever, Chills, Fatigue, Skin Diaphoresis Negative: Palpitations, Chest Pain Negative: Shortness Of Breath, Cough Genitourinary: Negative Positive: no symptoms reported, see HPI Negative: Arthralgia, Myalgia Negative: Headache, Weakness, Paresthesia, Numbness, Syncope, Slurred Speech Positive: Anxious All Other Systems Reviewed And Are Negative: Yes Physical Exam Triage Information Reviewed: Yes Vital Signs On Initial Exam: Initial Vitals Temp Pulse Resp BP Pulse Ox 98.0 F 115 19 133/96 97 11/03/19 12:20 11/03/19 12:20 11/03/19 12:20 11/03/19 12:20 11/03/19 12:20 Vital Signs Reviewed: Yes Appearance: Positive: Well-Appearing, Well-Nourished Skin: Positive: Warm, Skin Color Reflects Adequate Perfusion Cardiovascular: Positive: Normal, RRR, Pulses are Symmetrical in both Upper and Lower Extremities Musculoskeletal: Positive: Normal, Strength/ROM Intact Neurological: Positive: Speech Normal Psychiatric: Positive: Affect/Mood Appropriate AVPU Assessment: Alert Procedures - Sedation Patient Received Moderate/Deep Sedation with Procedure: No Diagnostics - Vital Signs Vital Signs Temp Pulse Resp BP Pulse Ox 11/03/19 15:17 98.0 F 98 16 141/88 97 11/03/19 12:20 98.0 F 115 19 133/96 97 - Laboratory Lab Results: Lab Results 11/03/19 Range/Units 14:14 POC Glucose (mg/dL) 93 (70-100) mg/dL Lab Statement: Any lab studies that have been ordered have been reviewed, and results considered in the medical decision making process. Dizzy Course/Dx - Course Course Of Treatment: Patient is evaluated for symptoms of vertigo on arrival. She states symptoms have been present 3-4 days. She denies any fevers, sweats , chills, cough, congestion, confusion, memory loss, visual changes. Patient states this feels different than her typical vertigo due to the length of time it is lasted. She believes this is due to her glucose versus hypotension. Arrival into the ED, the patient appears well, nondiaphoretic an alert and oriented. BP 133/96, blood glucose POC 93. Upper patient meclizine, however she states she took this medication approximately 2 hours ago without much relief. She does endorse nausea at this time. She is given Zofran by mouth as well as hydroxyzine for her anxiety symptoms. A reexamination, patient appears well and states she feels somewhat improved. Ambulating well. Eating and drinking in the ED okay. Patient states she has not been drinking enough fluids recently and states this could be causing her dizziness. Discussed symptoms of dehydration and given information. She will follow up with PCP as needed. - Diagnoses Provider Diagnoses: Dizziness, Dehydration Discharge ED - Sign-Out/Discharge Documenting (check all that apply): Patient Departure - Discharge Plan Condition: Stable Disposition: HOME Prescriptions: Ondansetron ODT TAB* [Zofran 4 MG Odt TAB*] 4 mg PO Q6H PRN #12 tab.odt MDD 4 PRN Reason: Nausea Patient Education Materials: Dehydration (ED) Referrals: Jose Bell SOCIAL SCIENTIST [Primary Care Provider] - Additional Instructions: Drink plenty of water Zofran as needed for nausea - Billing Disposition and Condition Condition: STABLE Disposition: Home
== END 2019-11-03 15:17 | disposition home or self-care (01) ==
LOC: ED 12:19
DX: R42 Dizziness and giddiness (principal); E86.0 Dehydration; E07.9 Disorder of thyroid, unspecified; D64.9 Anemia, unspecified; J44.9 Chronic obstructive pulmonary disease, unspecified; K21.9 Gastro-esophageal reflux disease without esophagitis; R62.50 Unspecified lack of expected normal physiological development in childhood; F41.9 Anxiety disorder, unspecified; F32.9 Major depressive disorder, single episode, unspecified; Z87.891 Personal history of nicotine dependence; Z79.899 Other long term (current) drug therapy; Z88.5 Allergy status to narcotic agent; Z88.0 Allergy status to penicillin; Z88.8 Allergy status to other drugs, medicaments and biological substances; Z88.6 Allergy status to analgesic agent; Z88.1 Allergy status to other antibiotic agents; Z91.041 Radiographic dye allergy status; Z91.040 Latex allergy status
CPT/HCPCS: 99283; A9270-GY

== ENCOUNTER 2019-11-30 11:02 | Emergency (ER) | payer OTHER ==
[2019-11-30] MEDS ORDERED: NS 0.9% 1000 ML** 1,000 ML IV ONE (11:47)
--- NOTE | 2019-11-30 12:00 | ED ---
Dizziness - HPI Summary HPI Summary: Patient is a 39 y/o F presenting to the ED for a chief complaint of dizziness that began around 09:30 on 11/30/19 upon waking up. Patient describes the dizziness as a room spinning sensation. She denies fever, nausea, or vomiting. She denies any aggravating or alleviating factors. On 11/29/19, she notes having a seizure at home. Typically, she has seizures weekly. PMHx is significant for epilepsy, headache, and chronic vertigo for which she takes meclizine, but denies this alleviates her vertigo. The episodes of vertigo typically occur after changing position quickly and occur every other day. Last visit to a neurologist was a few weeks ago at Dr. Bess office. Takes lamictal. - History Of Current Complaint Chief Complaint: EDDizziness Stated Complaint: DEHYDRATED/VERTIGO/ANXIETY PER PT Time Seen by Provider: 11/30/19 11:18 Hx Obtained From: Patient Onset/Duration: Still Present Timing: Days Severity Initially: Moderate Severity Currently: Moderate Character: Room Spinning, Dizzy Aggravating Factor(s): Nothing Alleviating Factor(s): Nothing Associated Signs And Symptoms: Negative: Nausea, Vomiting, Fever - Allergies/Home Medications Allergies/Adverse Reactions: Allergies Allergy/AdvReac Type Severity Reaction Status Date / Time blueberry Allergy Severe Hives/Diff. Verified 11/30/19 11:16 Breathing/I tching diphenhydramine Allergy Severe Swelling Verified 11/30/19 11:16 [From Benadryl] paroxetine [From Paxil] Allergy Severe Swelling Verified 11/30/19 11:16 Penicillins Allergy Severe Shortness Verified 11/30/19 11:16 of Breath watermelon Allergy Severe Hives/Diff. Verified 11/30/19 11:16 Breathing/I tching amoxicillin [From Augmentin] Allergy Intermediate Hives Verified 11/30/19 11:16 clavulanic acid Allergy Intermediate Hives Verified 11/30/19 11:16 [From Augmentin] formoterol [From Dulera] Allergy Intermediate Hives Verified 11/30/19 11:16 iohexol [From Omnipaque] Allergy Intermediate Hives Verified 11/30/19 11:16 metronidazole Allergy Intermediate Hives Verified 11/30/19 11:16 sertraline [From Zoloft] Allergy Intermediate Hives Verified 11/30/19 11:16 zonisamide Allergy Intermediate Hives Verified 11/30/19 11:16 pseudoephedrine Allergy Unknown Unknown Verified 11/30/19 11:16 Reaction Details acetaminophen [From Tylenol] Allergy dilusional Verified 11/30/19 11:16 coconut Allergy Hives/Diff. Verified 11/30/19 11:16 Breathing/I tching codeine Allergy Altered Verified 11/30/19 11:16 Mental Status guaifenesin [From Mucinex] Allergy Unknown Verified 11/30/19 11:16 Reaction Details latex Allergy Hives Verified 11/30/19 11:16 lemon oil Allergy Vomiting Verified 11/30/19 11:16 morphine Allergy See Comment Verified 11/30/19 11:16 pickle Allergy Intermediate Hives/Diff. Uncoded 11/30/19 11:16 Breathing/I tching Home Medications: Home Medications Chlorpheniramine/Dextromethorp [Robitussin Long-Acting Liq] 5 ml PO BID PRN [History Confirmed 11/30/19] Cholecalciferol CAP/TAB(NF) [Vitamin D3 CAP/TAB (NF)] 1,000 unit PO DAILY [History Confirmed 11/30/19] Erenumab-Aooe [Aimovig Autoinjector] 70 mg SUBCUT MONTHLY 11/30/19 [History Confirmed 11/30/19] Fluticasone NASAL SPRAY 50MCG* [Flonase NASAL SPRAY 50MCG*] 2 spray BOTH NARES DAILY 11/30/19 [History Confirmed 11/30/19] Meclizine TAB* [Antivert 12.5 TAB*] 25 mg PO BID 11/30/19 [History Confirmed ] Oxymetazoline 0.05% NASAL SPR* [Afrin 0.05% NASAL SPRAY*] 2 spray BOTH NARES BID PRN 11/30/19 [History Confirmed 11/30/19] buPROPion TAB* [Wellbutrin TAB*] 100 mg PO QAM 11/30/19 [History Confirmed 11/30] PMH/Surg Hx/FS Hx/Imm Hx Previously Healthy: Yes Endocrine/Hematology History: Reports: Hx Diabetes - "pre diabetes", Hx Thyroid Disease, Hx Anemia Denies: Hx Unexplained Bleeding Cardiovascular History: Denies: Hx Aneurysm, Hx Angina, Hx Angioplasty, Hx Auto Implanted Cardiovert Defib, Hx Cardiac Arrest, Hx Cardiomegaly, Hx Congenital Heart Disease, Hx Congestive Heart Failure, Hx Coronary Artery Disease, Hx Deep Vein Thrombosis, Hx Embolism, Hx Hypercholesterolemia, Hx Hypotension, Hx Hypertension, Hx Myocardial Infarction, Hx Pacemaker/ICD, Hx Peripheral Vascular Disease, Hx Rheumatic Fever, Hx Syncope, Hx Valvular Heart Disease, Other Cardiovascular Problems/Disorders Respiratory History: Reports: Hx Asthma, Hx Chronic Bronchitis, Hx Chronic Obstructive Pulmonary Disease (COPD) Denies: Hx Cystic Fibrosis, Hx Lung Cancer, Hx Pleural Effusion, Hx Pneumonia , Hx Pulmonary Edema, Hx Pulmonary Embolism, Hx Seasonal Allergies, Hx Sleep Apnea, Other Respiratory Problems/Disorders GI History: Reports: Hx Gastroesophageal Reflux Disease - ON DAILY PROLOSEC Denies: Hx Gall Bladder Disease, Hx Gastrointestinal Bleed, Hx Ulcer, Hx Urosepsis History: Denies: Hx Kidney Stones, Hx Renal Disease Sensory History: Reports: Hx Contacts or Glasses Denies: Hx Cataracts, Hx Eye Injury, Hx Eye Prosthesis, Hx Glaucoma, Hx Legally Blind, Hx Macular Degeneration, Hx Vision Problem, Hx Deafness, Hx Hearing Aid, Hx Hearing Problem, Other Sensory Impairments Opthamlomology History: Reports: Hx Contacts or Glasses Denies: Hx Cataracts, Hx Eye Injury, Hx Eye Prosthesis, Hx Glaucoma, Hx Legally Blind, Hx Macular Degeneration, Hx Vision Problem, Other Sensory Impairments EENT History: Denies: Hx Deafness Neurological History: Reports: Hx Developmental Delay - 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 Mental health, Hx Bipolar Disorder Denies: Hx Post Traumatic Stress Disorder, Hx Schizophrenia, Hx Suicide Attempt, Hx Substance Abuse - Cancer History Cancer Type, Location and Year: seizure disorder - Surgical History Surgical History: Yes Surgery Procedure, Year, and Place: Scalp Cystectomy May 2014, Abdominal Lipoma May 2014 Hx Anesthesia Reactions: No Infectious Disease History: No Infectious Disease History: Denies: Hx Clostridium Difficile, Hx Hepatitis, Hx Human Immunodeficiency Virus (HIV), Hx of Known/Suspected MRSA, Hx Shingles, Hx Tuberculosis, Hx Known/ Suspected VRE, Hx Known/Suspected VRSA, History Other Infectious Disease, Traveled Outside the [place] in Last 30 Days - Family History Known Family History: Positive: Cardiac Disease, Diabetes Negative: Renal Disease, Seizure Disorder - Social History Occupation: Unemployed Lives: With Family Alcohol Use: None Hx Substance Use: No Substance Use Type: Reports: None Hx Tobacco Use: Yes Smoking Status (MU): Former Smoker Type: Cigarettes Have You Smoked in the Last Year: No Review of Systems Negative: Fever Negative: Vomiting, Nausea Neurological: Other - Positive dizziness All Other Systems Reviewed And Are Negative: Yes Physical Exam - Summary Physical Exam Summary: Constitutional: Well-developed, Well-nourished, Alert. (-) Distressed Skin: Warm, Dry HENT: Normocephalic; Atraumatic Eyes: Conjunctiva normal Neck: Musculoskeletal ROM normal neck. (-) JVD, (-) Stridor, (-) Nuchal rigidity Cardio: Rhythm regular, rate normal, Heart sounds normal; Intact distal pulses; Radial pulses are 2+ and symmetric. (-) Murmur Pulmonary/Chest wall: Effort normal. (-) Respiratory distress, (-) Wheezes, (-) Rales Abd: Soft, (-) tenderness, (-) Distension, (-) Guarding, (-) Rebound Musculoskeletal: (-) Edema Lymph: (-) Cervical adenopathy Neuro: Alert, Oriented x3. No nystagmus, CN 2-12 grossly intact. No dysmetria. Gait - able to ambulate to bedside commode, uses walker. Psych: Mood and affect Normal Triage Information Reviewed: Yes Vital Signs On Initial Exam: Initial Vitals Temp Pulse Resp BP Pulse Ox 98.1 F 97 16 147/94 98 11/30/19 11:08 11/30/19 11:08 11/30/19 11:08 11/30/19 11:08 11/30/19 11:08 Vital Signs Reviewed: Yes Procedures - Sedation Patient Received Moderate/Deep Sedation with Procedure: No Diagnostics - Vital Signs Vital Signs Temp Pulse Resp BP Pulse Ox 11/30/19 11:33 92 96 11/30/19 11:31 90 148/87 96 11/30/19 11:08 98.1 F 97 16 147/94 98 - Laboratory Result Diagrams: 11/30/19 12:03 11/30/19 12:03 Lab Statement: Any lab studies that have been ordered have been reviewed, and results considered in the medical decision making process. Re-Evaluation - Re-Evaluation First Eval Re-Evaluation Time: 14:00 Change: Improved Comment: At 14:00, patient is feeling better and was able to ambulate to the bedside commode Dizzy Course/Dx - Course Course Of Treatment: 39 y/o F w hx migraines, seizures on lamictal, chronic intermittent vertigo presenting with vertigo. - Physical exam: unremarkable neuro exam. Patient states he feels dehydrated, will give fluids. Labs unremarkable. Lamictal sent. Have her f/u w neurology. - Diagnoses Provider Diagnoses: Vertigo Discharge ED - Sign-Out/Discharge Documenting (check all that apply): Patient Departure - Discharge - Discharge Plan Condition: Stable Disposition: HOME Patient Education Materials: Vertigo (ED) Referrals: Jose Bell NP [Primary Care Provider] - Additional Instructions: You were seen in the emergency department for vertigo. Please take meclizine as needed. Please follow up with her neurologist. Please follow up with your primary care doctor in next 2-3 days and return to emergency department for severe headaches, vomiting, worsening or concerning symptoms. It was a pleasure taking care of you today. - Billing Disposition and Condition Condition: STABLE Disposition: Home - Attestation Statements Document Initiated by Sampson: Yes Documenting Scribe: Bekah Weeks Provider For Whom Sampson is Documenting (Include Credential): Wolf Oliver MD Scribe Attestation: I, Bekah Weeks, scribed for Wolf Oliver MD on 11/30/19 at 1523. Scribe Documentation Reviewed: Yes Provider Attestation: The documentation as recorded by the Bekah villalobos accurately reflects the service I personally performed and the decisions made by me, Wolf Oliver MD Status of Scribe Document: Viewed
[2019-11-30 12:11] LABS: Hematocrit 38 % (35-47); Mean Corpuscular HGB Conc 35 g/dL (31-36); Mean Corpuscular Hemoglobin 33 pg (27-31); Mean Corpuscular Volume 97 fL (80-97); Mean Platelet Volume 7.1 fL (7.4-10.4); Platelet Count 312 10^3/uL (150-450); Red Blood Count 3.89 10^6 /uL (3.70-4.87); Red Cell Distribution Width 14 % (10-15); White Blood Count 7.1 10^3/uL (3.5-10.8)
[2019-11-30 12:27] LABS: Albumin/Globulin Ratio 1.3 (1-3); BUN/Creatinine Ratio 12.8 (8-20); Calcium 9.2 mg/dL (8.6-10.3); EGFR African American 89.4 (>60); EGFR Non-African American 73.8 (>60); Potassium 4.2 mmol/L (3.5-5.0); Total Bilirubin 0.4 mg/dL (0.2-1.0)
[2019-11-30] MEDS ORDERED: Meclizine TAB* 12.5 MG PO ONE (14:03)
[2019-11-30 14:58] VITALS: BP 150/85
== END 2019-11-30 14:57 | disposition home or self-care (01) ==
LOC: ED 11:02
DX: R42 Dizziness and giddiness (principal); E07.9 Disorder of thyroid, unspecified; D64.9 Anemia, unspecified; J44.9 Chronic obstructive pulmonary disease, unspecified; K21.9 Gastro-esophageal reflux disease without esophagitis; R62.50 Unspecified lack of expected normal physiological development in childhood; F41.9 Anxiety disorder, unspecified; F32.9 Major depressive disorder, single episode, unspecified; Z87.891 Personal history of nicotine dependence; Z79.899 Other long term (current) drug therapy; Z88.5 Allergy status to narcotic agent; Z88.0 Allergy status to penicillin; Z88.8 Allergy status to other drugs, medicaments and biological substances; Z88.1 Allergy status to other antibiotic agents; Z91.041 Radiographic dye allergy status; Z91.040 Latex allergy status
CPT/HCPCS: 36415; 80053; 80175; 85027; 96360; 99283; A9270-GY

== ENCOUNTER 2019-12-07 12:03 | Emergency (ER) | payer OTHER ==
--- OUTSIDE RECORDS SUMMARY | 2019-12-07 12:23 | XMS REPORT | Continuity of Care Document ---
:1980 External Reference #:[id number] Author Name MOSHE Doherty (transmitted by agent of provider Monique Thibodeaux) Address [address] [place] [id number] Care Team Providers Name Role Phone Sari Vazquez MD - Dermatology Care Team Information Coin Purse Framer Fatoumata Pritchard MD - Psychiatry Care Team Information Coin Purse Framer [phone] Hernando Marin MD - Allergy & Care Team Information Coin Purse Framer [phone] Immunology Eron Manning MD - Care Team Information Coin Purse Framer [phone] Otolaryngology Yossi Lagos MD - Surgery Care Team Information Coin Purse Framer [phone] [facility] - Sleep Disorder Care Team Information Coin Purse Framer [phone] Diagnostic [facility] - Care Team Information Coin Purse Framer [employer] Jose Bell - Nurse Care Team Information Coin Purse Framer [phone] Practitioner Momo Machado MD - Plastic and Care Team Information Coin Purse Framer Reconstructive Surgery Problems Active Problems Provider Date Epilepsy Yudi [...] Dissociative convulsions Hernando Jurado M.D. Onset: 04/01/2019 Social History Type Date Description Comments Sex Unknown ETOH Use 01/21/2018 Denies alcohol use Tobacco Use Start: Unknown End: Patient is a former smoker Unknown Recreational Drug Use Denies Drug Use Smoking Status Reviewed: 11/24/19 Patient is a former smoker Exercise Type/Frequency Exercises regularly Allergies, Adverse Reactions, Alerts Active Allergies Reaction [...] Medications SIG Qnty Indications Ordering Date Provider Citalopram Take 3 tabs po 42tabs F43.23 Jose Morochok, 11/24/2019 Hydrobromide qday for 1 week, JACKAROO 10mg then 2 tabs for 1 Tablets week, then 1 tab for 1 week then stop Bupropion take 1 tablet by 30tabs F43.23 Jose Bell, 11/24/2019 Hydrochloride ER mouth every day in JACKAROO (SR) the morning 100mg Tablets ER 12HR Vitamin D3 1 by mouth every 90tabs E55.9 Jose Bell, 06/23/2019 1000Unit day JACKAROO Tablets Doxepin HCL take two caps by 60caps G43.009 Clinton Blanco 06/21/2019 50mg mouth at night. Pablo Yadav Capsules Meclizine HCL one tablet twice a 60tabs Jose Bell, 05/10/2019 25mg day if too JACKAROO Tablets sedating reduce to one every night at bedtime Aimovig inject sq once a 1ml Clinton Blanco 05/07/2019 70mg/ml month Pablo Yadav Solution Auto-Inject Blood Pressure use daily to 1units G43.009 Jose Bell, 04/07/2019 Monitor Auto monitor bp daily JACKAROO Inflate Misc Walker Swivel use with 1units R29.6 Jose Bell, 04/07/2019 Wheels/5 Adjustment ambulation JACKAROO Holes/3" 3" Misc Lamotrigine take 2 tab by 120tabs Clinton Blanco 01/15/2019 200mg mouth in the Pablo Yadav Tablets morning and take 2 tabs at bedtime. Trueplus Lancets 30G use to test twice 100units Tawny Ferrari MD 2018 Ultra Thin daily or as needed 30G Misc - true metrix device. Nasal Kaibeto 12 Hour 2 sprays each 30ml J01.90 Comfort 10/21/2018 nostril 2x daily Pablo Oliver 0.05% Solution as needed for congestion Robitussin 12 Hour 5 milliliters by 89ml Comfort 10/21/2018 Cough Relief mouth twice a day Pablo Oliver 30mg/5ML as needed Suer Fluticasone use 2 sprays in 16units J01.90 Jose Bell, 10/21/2018 Propionate each nostril one JACKAROO 50mcg/Act time a day Suspension True Focus Self test blood twice 100units Tawny Ferrari MD 08/17/2018 Monitoring Blood daily or as Glucose Test Strips needed(true metrix device) Strips True Metrix Go Blood use daily as 1units Jose Bell, 08/17/2018 Glucose Meter directed last JACKAROO visit: 08/19/18 w/Device Kit Ventolin HFA 2 puffs by mouth 8gm J45.30 Jose Bell, 07/15/2018 four times a day JACKAROO 108(90Base) mcg/Act as needed Aerosol Ibuprofen take one tablet 30tabs Comfort 06/24/2016 800mg daily as needed. Pablo Oliver Tablets Omeprazole take one capsule 30caps K21.9 Tawny Ferrari MD 09/15/2015 20mg by mouth every day Capsules DR PETERSON Cetirizine HCL 1 by mouth every 30tabs Comfort 03/31/2015 day Pablo Oliver 10mg Tablets Ferrous Gluconate take one tablet by 180tabs D50.9 Jose Bell, 2013 mouth twice daily JACKAROO 324(38Fe) mg Tablets Albuterol Sulfate inhale the 100units Jose Bell, 11/02/2012 contents of one JACKAROO (2.5mg/3ML) 0.083% vial via nebulizer Nebulizer every 4 to 6 hours as needed Levothyroxine Sodium take 1 tablet by 90tabs E03.9 Jose Bell, 00/00/ 0000 mouth once daily JACKAROO 75mcg Tablets History Medications Azithromycin take 2 tablets 6tabs H66.93 Yudi Carlin, 09/06/2019 - 250mg on day 1, then 1 Pablo Unknown Tablets tab daily for days 2-5 Azithromycin take 2 tablets 6tabs H66.93 Belia Maria, 09/01/2019 - 250mg on day 1, then 1 MD 09/05/2019 Tablets tab daily for days 2-5 Doxepin HCL 60caps Clinton S. 05/26/2019 - 25mg Pablo Yadav 06/21/2019 Capsules Immunizations CPT Code Status Date Vaccine Reaction Lot # [id number] Given 09/15/2019 Influ Vacc Quadrivalent pharmacy administered Preser/Antibiotic Free Im Use Flucelvax 23698 Given 08/19/2018 Influenza Virus Vaccine, [id number] Quadrivalent, Split, Preservative Free 39433 Given 07/28/2018 Influenza Virus Vaccine, Quadrivalent, Split, Preservative Free 02212 Given 07/28/2018 Influenza Virus Vaccine, Quadrivalent, Split, Preservative Free 41726 Given 01/21/2018 Influenza Virus Vaccine, [id number] Quadrivalent, Split, Preservative Free 77600 Given 10/16/2017 Pneumonia Vaccine no reaction, pt [id number] tolerated well Q2035 Given 10/16/2015 Afluria Vaccine [id number] Given 08/20/2012 Tdap - [id number] Tetanus/Diptheria/Acellul ar Pertussis Q2038 Given 07/20/2012 Fluzone Vaccine [id number] Ordered 07/04/2016 Afluria Vaccine Vital Signs Date Vital Result Comment 11/24/2019 8:22am Height 67 inches 5'7" Weight 349.00 lb Heart Rate 86 /min BP Systolic 130 mmHg BP Diastolic 88 mmHg Body Temperature 97.5 F O2 % BldC Oximetry 96 % BMI (Body Mass Index) 54.7 kg/m2 11/23/2019 8:37am Height 67 inches 5'7" Weight 367.00 lb Heart Rate 88 /min BP Systolic 132 mmHg BP Diastolic 90 mmHg Respiratory Rate 18 /min Body Temperature 98.8 F BMI (Body Mass Index) 57.5 kg/m2 Results Test Acquired Date Facility Test Result H/L Range Note Laboratory test 11/03/2019 [facility] Point of 93 mg/dL Normal 70-[address] [place] [address] [phone] CBC Auto Diff 09/03/2019 [facility] White Blood 7.8 10^3/uL Normal 3.5-10.[address] [place] [address] [phone] Red Blood Count 4.15 10^6/uL Normal 3.70-4.87 [...] Blood Cells % 0.1 Comp Metabolic 09/03/2019 [facility] Sodium 139 mmol/L Normal 135-145 Panel [address] [place] [address] [phone] Potassium 4.2 mmol/L Normal 3.5-5.0 Chloride 103 [...] Egfr Non- 66.2 >60 Egfr 80.1 >60 2 Laboratory test 08/26/2019 [facility] Point of Care 131 mg/dL High 70-100 [address] [place] [address] [phone] 1 Ornamental Metal Erector Apprentice: [id number] 2 Because ethnic data is not always [...] 5 Kidney failure <15 (or dialysis) 3 Ornamental Metal Erector Apprentice: [id number] Procedures Description No Information Available Medical Devices Description No Information Available Encounters Type Date Location Provider Dx Diagnosis Office Visit 10/05/2019 [facility] Darion Mena, JANNIE R42 Dizziness and 11:30a [facility] giddiness F44.5 Conversion disorder with seizures or convulsions G43.009 Migraine w/o aura, not intractable, w/o status migrainosus G47.33 Obstructive sleep apnea (adult) (pediatric) Office Visit 06/30/2019 2:30p [facility] Darion Mena, E66.01 Morbid (severe) [facility] VAULT TELLER obesity due to excess calories F44.5 Conversion disorder with seizures or convulsions G43.009 Migraine w/o aura, not intractable, w/o status migrainosus Z68.43 Body mass index (BMI) 50.0-59.9, adult Office Visit 06/23/2019 2:20p [facility] Internal Jose Bell, R03.0 Ele[facility] - JACKAROO blood-pressure Ccmob reading, w/o diagnosis of htn E66.01 Morbid (severe) obesity due to excess calories F44.5 Conversion disorder with seizures or convulsions G47.33 Obstructive sleep apnea (adult) (pediatric) E55.9 Vitamin D deficiency, unspecified Office Visit 05/26/2019 1:00p Scooter Mena, G43.009 Migraine w/o aura, Neurologic VAULT TELLER not intractable, [facility] w/o status migrainosus E66.01 Morbid (severe) obesity due to excess calories Z79.899 Other continuous churn buttermaker (current) drug therapy F44.5 Conversion disorder with seizures or convulsions Assessments Date Code Description Provider 11/24/2019 F43.23 Adjustment disorder with mixed anxiety and Andreaofia MOSHE Bell depressed mood 11/24/2019 D17.1 Benign lipomatous neoplasm of skin and Zsofia MOSHE Bell subcutaneous tissue of trunk 11/24/2019 R42 Dizziness and giddiness MOSHE Doherty 11/23/2019 D17.1 Benign lipomatous neoplasm of skin and Wellington Pringle MD subcutaneous tissue of trunk 10/05/2019 R42 Dizziness and giddiness Darion Mena VAULT TELLER 10/05/2019 F44.5 Conversion disorder with seizures or Darion Vincentke, VAULT TELLER convulsions 10/05/2019 G43.009 Migraine without aura, not intractable, Darion Rajesh, VAULT TELLER without status migra 10/05/2019 G47.33 Obstructive sleep apnea (adult) (pediatric) Darion Mena NP 09/01/2019 H66.93 Otitis media, unspecified, bilateral Belia Maria MD 09/01/2019 R05 Cough Belia Maria MD 09/01/2019 R42 Dizziness and giddiness Belia Maria MD 06/30/2019 E66.01 Morbid (severe) obesity due to excess Darion Mena, JANNIE calories 06/30/2019 F44.5 Conversion disorder with seizures or Darion Knaake, VAULT TELLER convulsions 06/30/2019 G43.009 Migraine without aura, not intractable, Darion Kmaake, VAULT TELLER without status migra 06/30/2019 Z68.43 Body mass index (BMI) 50.0-59.9, adult Darion Mena NP 06/23/2019 R03.0 Elevated blood-pressure reading, without Zsofia MOSHE Bell diagnosis of hypert 06/23/2019 E66.01 Morbid (severe) obesity due to excess Andreaofia MOSHE Bell calories 06/23/2019 F44.5 Conversion disorder with seizures or MOSHE Doherty convulsions 06/23/2019 G47.33 Obstructive sleep apnea (adult) (pediatric) MOSHE Doherty 06/23/2019 E55.9 Vitamin D deficiency, unspecified MOSHE Doherty 05/26/2019 G43.009 Migraine without aura, not intractable, Darion Mena NP without status migra 05/26/2019 E66.01 Morbid (severe) obesity due to excess Darion Mena NP calories 05/26/2019 Z79.899 Other correction (current) drug therapy Darion Mena NP 05/26/2019 F44.5 Conversion disorder with seizures or Darion Mena NP convulsions Plan of Treatment Future Appointment(s):12/22/2019 2:20 pm - MOSHE Doherty at [facility] Internal Medicine - [facility]12/15/2019 11:30 am - Darion Mena NP at [facility]11/24/2019 - MOSHE DohertyF43.23 Adjustment disorder with mixed anxiety and depressed moodNew Medication:Citalopram Hydrobromide 10 mg - Take 3 tabs po qday for 1 week, then 2 tabs for 1 week, then 1 tab for 1 week then stopBupropion Hydrochloride ER (SR) 100 mg - take 1 tablet by mouth every day in the morningComments:We discussed to taper off Celexa and star on a low dose VziafdupptG30.1 Benign lipomatous neoplasm of skin and subcutaneous tissue of trunkComments:I am giving you a referral to see Dr. Machado as recommended by Dr. Pickard:Momo Machado MD, Surgery,Plastic/RconstveFollow up :4 [id number] Dizziness and giddinessComments:We discussed why it is so important to keep hydratedGatorade is a good choice, but avoid the sugary version Functional Status Description No Information Available Mental Status Description No Information Available Referrals Refer to Reason for Referral Status Appt Date Momo Machado MD Created [address] [facility] [address] [place] [id number] [phone] [facility] Morbid obesity; Needs Received Partial Living baratric consult [address] [facility] [address] [place] [id number] [phone]
--- OUTSIDE RECORDS SUMMARY | 2019-12-07 12:23 | XMS REPORT | Continuity of Care Document ---
:1980 External Reference #:[id number] Author Name Wellington Pringle MD (transmitted by agent of provider Seymour Jeronimo) Address [address] [place] [address] [address] [place] [address] Care Team Providers Name Role Phone Sari Vazquez MD - Dermatology Care Team Information Office 365 Consultant Fatoumata Pritchard MD - Psychiatry Care Team Information Office 365 Consultant [phone] Hernando Marin MD - Allergy & Care Team Information Office 365 Consultant Immunology Eron Manning MD - Care Team Information Office 365 Consultant [phone] Otolaryngology Yossi Lagos MD - Surgery Care Team Information Office 365 Consultant [phone] [facility] - [facility] Care Team Information Office 365 Consultant Diagnostic [facility] - Care Team Information Office 365 Consultant Hebrew Professor Jose Bell CHILD SUPPORT OFFICER - Nurse Care Team Information Office 365 Consultant [phone] Practitioner Problems Active Problems Provider Date Epilepsy Yudi Carlin M.D. Onset: 08/20/2012 Asthma without status asthmaticus Yudi Carlin M.D. Onset: 08/20/2012 Essential hypertension Yudi Carlin M.D. Onset: 08/20/2012 Conduction disorder of the heart Tanvir Vizcarra M.D. Onset: 08/31/2012 Migraine variants, not intractable Tanvir Vizcarra M.D. Onset: 08/31/2012 Anxiety disorder Jeremiah Zendejas, JANNIE Onset: 01/16/2015 Depressive disorder Jeremiah Zendejas NP [...] Use Denies Drug Use Smoking Status Reviewed: 11/23/19 Patient is a former smoker Exercise Type/Frequency [...] D3 1 by mouth every 90tabs E55.9 Jacksonmagaly Morochok, 06/23/2019 1000Unit day CHILD SUPPORT OFFICER Tablets Doxepin HCL take two caps by 60caps G43.009 Clinton Blanco 06/21/2019 50mg mouth at night. Pablo Yadav Capsules Meclizine HCL one tablet twice a 60tabs Jose Bell, 05/10/2019 25mg day if too CHILD SUPPORT OFFICER Tablets sedating reduce to one every night at bedtime Aimovig inject sq once a 1ml Clinton Blanco 05/07/2019 70mg/ml month Pablo Yadav Solution Auto-Inject Blood Pressure use daily to 1units G43.009 Jose Bell, 04/07/2019 Monitor Auto monitor bp daily CHILD SUPPORT OFFICER Inflate Misc Walker Swivel use with 1units R29.6 Jose Bell, 04/07/2019 Wheels/5 Adjustment ambulation CHILD SUPPORT OFFICER Holes/3" 3" Misc Lamotrigine take 2 tab [...] Jose Bell, 10/21/2018 Propionate each nostril one CHILD SUPPORT OFFICER 50mcg/Act time a day Suspension Robitussin 12 Hour 5 milliliters by 89ml R42 Comfort 10/21/2018 Cough Relief mouth twice a day Cotton, M.D. 30mg/5ML as needed Suer Nasal [place] 12 Hour 2 sprays each 30ml J01.90 Comfort 10/21/2018 nostril 2x daily Cotton M.D. 0.05% Solution as needed for congestion True Metrix Go Blood use daily as 1units Jose Bell, 08/17/2018 Glucose Meter directed last CHILD SUPPORT OFFICER visit: 08/19/18 w/Device Kit True Focus Self test blood twice 100units Tawyn Ferrari MD 08/17/2018 Monitoring Blood daily or as Glucose Test Strips needed(true metrix device) Strips Ventolin HFA 2 puffs by mouth 8gm J45.30 Andreapratibha Ray, 07/15/2018 four times a day CHILD SUPPORT OFFICER 108(90Base) mcg/Act as needed Aerosol Citalopram take one tablet by 30tabs Jose Blel, 03/12/2018 Hydrobromide mouth every day CHILD SUPPORT OFFICER 40mg Tablets Ibuprofen take one tablet 30tabs Comfort 06/24/2016 [...] 100units Jose Bell, 11/02/2012 contents of one CHILD SUPPORT OFFICER (2.5mg/3ML) 0.083% vial via nebulizer Nebulizer every 4 to 6 hours as needed Levothyroxine Sodium Take 1 Tablet By 90tabs E03.9 Marito Gruber Mouth Once Daily Pablo Turpin 75mcg Tablets History Medications Azithromycin take 2 [...] Code Status Date Vaccine Reaction Lot # [id number] Given 09/15/2019 Influ Vacc Quadrivalent pharmacy administered Preser/Antibiotic Free Im Use Flucelvax [id number] Given 08/19/2018 Influenza Virus Vaccine, [id number] Quadrivalent, Split, Preservative Free 47553 Given 07/28/2018 Influenza Virus Vaccine, Quadrivalent, Split, Preservative Free 33861 Given 07/28/2018 Influenza Virus Vaccine, Quadrivalent, Split, Preservative Free 36888 Given 01/21/2018 Influenza Virus Vaccine, [id number] Quadrivalent, Split, Preservative Free 78279 Given 10/16/2017 Pneumonia Vaccine no reaction, pt [id number] tolerated well Q2035 Given 10/16/2015 Afluria Vaccine 98475 Given 08/20/2012 Tdap - [id number] Tetanus/Diptheria/Acellul ar Pertussis Q2038 Given 07/20/2012 Fluzone Vaccine [id number] Q2035 Ordered 07/04/2016 Afluria Vaccine Vital Signs Date Vital Result Comment 11/23/2019 8:37am Height 67 inches 5'7" Weight 367.00 lb Heart Rate 88 /min BP Systolic 132 mmHg BP Diastolic 90 mmHg Respiratory Rate 18 /min Body Temperature 98.8 F BMI (Body Mass Index) 57.5 kg/m2 10/05/2019 11:09am Height 67 inches 5'7" Weight 366.00 lb Heart Rate 78 /min BP Systolic 146 mmHg BP Diastolic 88 mmHg BMI (Body Mass Index) 57.3 kg/m2 Results Test Acquired Date Facility Test Result H/L Range Note Laboratory test 11/03/2019 [facility] Point of 93 mg/dL Normal 70-100 [address] [place] [address] [phone] CBC Auto Diff 09/03/2019 [facility] White Blood 7.8 10^3/uL Normal 3.5-10.[address] Count [place], [place] [id number] [phone] Red Blood Count 4.15 10^6/uL Normal 3.70-4.87 [...] Blood Cells % 0.1 Comp Metabolic 09/03/2019 [facility] Sodium 139 mmol/L Normal 135-[address] [place] [address] [phone] Potassium 4.2 mmol/L Normal 3.5-5.0 Chloride 103 [...] Egfr 80.1 >60 2 Laboratory test 08/26/2019 [facility] Point of Care 131 mg/dL High 70-100 [address] [place] [address] [phone] 1 [place]: [id number] 2 Because ethnic data is not always [...] 5 Kidney failure <15 (or dialysis) 3 [place]: [id number] Procedures Description No Information Available Medical Devices Description No Information Available Encounters Type Date Location Provider Dx Diagnosis Office Visit 11/23/2019 [facility] Wellington Juarez7.1 Benign lipomatous 8:30a Of [facility] MD Pino neoplasm of skin, subcu of trunk Office Visit 10/05/2019 [facility] Darion Mena, JANNIE R42 Dizziness and 11:30a [facility] giddiness F44.5 Conversion disorder with seizures or convulsions G43.009 Migraine w/o aura, not intractable, w/o status migrainosus G47.33 Obstructive sleep apnea (adult) (pediatric) Office Visit 06/30/2019 2:30p [facility] Darion Mena, E66.01 Morbid (severe) [facility] HOSPICE FELLOW obesity due to excess calories F44.5 Conversion disorder with seizures or convulsions G43.009 Migraine w/o aura, not intractable, w/o status migrainosus Z68.43 Body mass index (BMI) 50.0-59.9, adult Office Visit 06/23/2019 2:20p [facility] Internal Zsofia Ray, R03.0 Elevated Medicine - CHILD SUPPORT OFFICER blood-pressure Ccmob reading, w/o diagnosis of htn E66.01 Morbid (severe) obesity due to excess calories F44.5 Conversion disorder with seizures or convulsions G47.33 Obstructive sleep apnea (adult) (pediatric) E55.9 Vitamin D deficiency, unspecified Office Visit 05/26/2019 1:00p [facility] Darion Mena, G43.009 Migraine w/o aura, Neurologic HOSPICE FELLOW not intractable, [facility] w/o status migrainosus E66.01 Morbid (severe) obesity due to excess calories Z79.899 Other shelter (current) drug therapy F44.5 Conversion disorder with seizures or convulsions Assessments Date Code Description Provider 11/23/2019 D17.1 Benign lipomatous neoplasm of skin and Wellington Pringle MD subcutaneous tissue of trunk 10/05/2019 R42 Dizziness and giddiness Darion Mena, HOSPICE FELLOW 10/05/2019 F44.5 Conversion disorder with seizures or Darion Knaake, HOSPICE FELLOW convulsions 10/05/2019 G43.009 Migraine without aura, not intractable, Darion Kmaake, HOSPICE FELLOW without status migra 10/05/2019 G47.33 Obstructive sleep apnea (adult) (pediatric) Darion Vincentke, HOSPICE FELLOW 09/01/2019 H66.93 Otitis media, unspecified, bilateral Belia Maria MD 09/01/2019 R05 Cough Belia Maria MD 09/01/2019 R42 Dizziness and giddiness Belia Maria MD 06/30/2019 E66.01 Morbid (severe) obesity due to excess Darion Kmaake, HOSPICE FELLOW calories 06/30/2019 F44.5 Conversion disorder with seizures or Darion Knaake, HOSPICE FELLOW convulsions 06/30/2019 G43.009 Migraine without aura, not intractable, Darion Kmaake, HOSPICE FELLOW without status migra 06/30/2019 Z68.43 Body mass index (BMI) 50.0-59.9, adult Darionshakiar Mena, HOSPICE FELLOW 06/23/2019 R03.0 Elevated blood-pressure reading, without Zsofia Ray, CHILD SUPPORT OFFICER diagnosis of hypert 06/23/2019 E66.01 Morbid (severe) obesity due to excess Zsofia Ray, CHILD SUPPORT OFFICER calories 06/23/2019 F44.5 Conversion disorder with seizures or Zsofia Ray, CHILD SUPPORT OFFICER convulsions 06/23/2019 G47.33 Obstructive sleep apnea (adult) (pediatric) Zsofia Ray , CHILD SUPPORT OFFICER 06/23/2019 E55.9 Vitamin D deficiency, unspecified Zsofia Ray, CHILD SUPPORT OFFICER 05/26/2019 G43.009 Migraine without aura, not intractable, Darion Vincentke, HOSPICE FELLOW without status migra 05/26/2019 E66.01 Morbid (severe) obesity due to excess Darion Kmaake, HOSPICE FELLOW calories 05/26/2019 Z79.899 Other shelter (current) drug therapy Darion Kmaake, HOSPICE FELLOW 05/26/2019 F44.5 Conversion disorder with seizures or Darion Mena NP convulsions Plan of Treatment Future Appointment(s):11/24/2019 8:20 am - MOSHE Doherty at [facility] Internal Medicine - Ccmob12/15/2019 11:30 am - Darion Mena NP at [facility] Functional Status Description No Information Available Mental Status Description No Information Available Referrals Refer to Dr Reason for Referral Status Appt Date [facility] Morbid obesity; Needs Received Partial Living baratric consult [address] [facility] [address] [place] [address] [phone]
--- OUTSIDE RECORDS SUMMARY | 2019-12-07 12:23 | XMS REPORT | Continuity of Care Document ---
:1980 External Reference #:[id number] Author Name Wellington Pringle MD (transmitted by agent of provider Seymour Jeronimo) Address [address] [place] [address] [place] [address] Care Team Providers Name Role Phone Sari Vazquez MD - Dermatology Care Team Information Payroll Auditor Fatoumata Pritchard MD - Psychiatry Care Team Information Payroll Auditor Hernando Marin MD - Allergy & Care Team Information Payroll Auditor [phone] Immunology Eron Manning MD - Care Team Information Payroll Auditor [phone] Otolaryngology Yossi Lagos MD - Surgery Care Team Information Payroll Auditor [phone] [facility] - Sleep Disorder Care Team Information Payroll Auditor Diagnostic [facility] - Care Team Information Payroll Auditor Exhibit Artist Jose Bell CULLET WASHER - Nurse Care Team Information Payroll Auditor [phone] Practitioner Problems Active Problems Provider Date Epilepsy [...] 90tabs E55.9 Jacksonmagaly Morochok, 06/23/2019 1000Unit day CULLET WASHER Tablets Doxepin HCL take two caps by 60caps G43.009 Clinton Blanco 06/21/2019 50mg mouth at night. Pablo Yadav Capsules Meclizine HCL one tablet twice a 60tabs Jose Bell, 05/10/2019 25mg day if too CULLET WASHER Tablets sedating reduce to one every night at bedtime Aimovig inject sq once a 1ml Clinton Blanco 05/07/2019 70mg/ml month Pablo Yadav Solution Auto-Inject Blood Pressure use daily to 1units G43.009 Jose Bell, 04/07/2019 Monitor Auto monitor bp daily CULLET WASHER Inflate Misc Walker Swivel use with 1units R29.6 Jose Bell, 04/07/2019 Wheels/5 Adjustment ambulation CULLET WASHER Holes/3" 3" Misc Lamotrigine take 2 tab [...] Jose Bell, 10/21/2018 Propionate each nostril one CULLET WASHER 50mcg/Act time a day Suspension Robitussin 12 Hour 5 milliliters by 89ml R42 Comfort 10/21/2018 Cough Relief mouth twice a day Cotton, M.D. 30mg/5ML as needed Suer Nasal [place] 12 Hour 2 sprays each 30ml J01.90 Comfort 10/21/2018 nostril 2x daily Cotton M.D. 0.05% Solution as needed for congestion True Metrix Go Blood use daily as 1units Jose Bell, 08/17/2018 Glucose Meter directed last CULLET WASHER visit: 08/19/18 w/Device Kit True Focus Self test blood twice 100units Tawny Ferrari MD 08/17/2018 Monitoring Blood daily or as Glucose Test Strips needed(true metrix device) Strips Ventolin HFA 2 puffs by mouth 8gm J45.30 Andreapratibha Ray, 07/15/2018 four times a day CULLET WASHER 108(90Base) mcg/Act as needed Aerosol Citalopram take one tablet by 30tabs Jose Bell, 03/12/2018 Hydrobromide mouth every day CULLET WASHER 40mg Tablets Ibuprofen take one tablet 30tabs [...] 100units Jose Bell, 11/02/2012 contents of one CULLET WASHER (2.5mg/3ML) 0.083% vial via nebulizer Nebulizer every [...] Code Status Date Vaccine Reaction Lot # [id number] Given 09/15/2019 Influ Vacc Quadrivalent pharmacy administered Preser/Antibiotic Free Im Use Flucelvax 08246 Given 08/19/2018 Influenza Virus Vaccine, [id number] Quadrivalent, Split, Preservative Free 64064 Given 07/28/2018 Influenza Virus Vaccine, Quadrivalent, Split, Preservative Free 67155 Given 07/28/2018 Influenza Virus Vaccine, Quadrivalent, Split, Preservative Free 80962 Given 01/21/2018 Influenza Virus Vaccine, [id number] Quadrivalent, Split, Preservative Free 43269 Given 10/16/2017 Pneumonia Vaccine no reaction, pt [id number] tolerated well Q2035 Given 10/16/2015 Afluria Vaccine 94856 Given 08/20/2012 Tdap - [id number] Tetanus/Diptheria/Acellul ar Pertussis Q2038 Given 07/20/2012 Fluzone Vaccine [id number] Q2035 Ordered 07/04/2016 Afluria Vaccine Vital Signs [...] Result H/L Range Note Laboratory test 11/03/2019 [facility] Point of 93 mg/dL Normal 70-100 [address] [address] [phone] CBC Auto Diff 09/03/2019 [facility] White Blood 7.8 10^3/uL Normal 3.5-10.[address] Count [place], [place] [id number] [phone] Red Blood Count 4.15 10^6/uL Normal 3.70-4.87 [...] Blood Cells % 0.1 Comp Metabolic 09/03/2019 [facility] Sodium 139 mmol/L Normal 135-[address] [place] [address] [phone] Potassium 4.2 mmol/L Normal 3.5-5.0 Chloride 103 [...] Egfr 80.1 >60 2 Laboratory test 08/26/2019 [facility] Point of Care 131 mg/dL High 70-100 [address] [place] [address] [phone] 1 Rehab Nurse: [id number] 2 Because ethnic data is not always [...] 5 Kidney failure <15 (or dialysis) 3 Rehab Nurse: [id number] Procedures Description No Information Available Medical Devices Description No Information Available Encounters Type Date Location Provider Dx Diagnosis Office Visit 11/23/2019 [facility] Wellington Juarez7.1 Benign lipomatous 8:30a [facility] MD Pino neoplasm of skin, subcu of trunk Office Visit 10/05/2019 [facility] Darion Mena, JANNIE R42 Dizziness and 11:30a [facility] giddiness F44.5 Conversion disorder with seizures or convulsions G43.009 Migraine w/o aura, not intractable, w/o status migrainosus G47.33 Obstructive sleep apnea (adult) (pediatric) Office Visit 06/30/2019 2:30p [facility] Darion Mena, E66.01 Morbid (severe) [facility] DIRECTOR ONCOLOGY obesity due to excess calories F44.5 Conversion disorder with seizures or convulsions G43.009 Migraine w/o aura, not intractable, w/o status migrainosus Z68.43 Body mass index (BMI) 50.0-59.9, adult Office Visit 06/23/2019 2:20p [facility] Internal Zsofia Ray, R03.0 Elevated Medicine - CULLET WASHER blood-pressure Ccmob reading, w/o diagnosis of htn E66.01 Morbid (severe) obesity due to excess calories F44.5 Conversion disorder with seizures or convulsions G47.33 Obstructive sleep apnea (adult) (pediatric) E55.9 Vitamin D deficiency, unspecified Office Visit 05/26/2019 1:00p [facility] Darion Mena, G43.009 Migraine w/o aura, Neurologic DIRECTOR ONCOLOGY not intractable, [facility] w/o status migrainosus E66.01 Morbid (severe) obesity due to excess calories Z79.899 Other assisted (current) drug therapy F44.5 Conversion disorder with seizures or convulsions Assessments Date Code Description Provider 11/23/2019 D17.1 Benign lipomatous neoplasm of skin and Wellington Pringle MD subcutaneous tissue of trunk 10/05/2019 R42 Dizziness and giddiness Darion Mena, DIRECTOR ONCOLOGY 10/05/2019 F44.5 Conversion disorder with seizures or Darion Knaake, DIRECTOR ONCOLOGY convulsions 10/05/2019 G43.009 Migraine without aura, not intractable, Darion Kmaake, DIRECTOR ONCOLOGY without status migra 10/05/2019 G47.33 Obstructive sleep apnea (adult) (pediatric) Darion Vincentke, DIRECTOR ONCOLOGY 09/01/2019 H66.93 Otitis media, unspecified, bilateral Belia Maria MD 09/01/2019 R05 Cough Belia Maria MD 09/01/2019 R42 Dizziness and giddiness Belia Maria MD 06/30/2019 E66.01 Morbid (severe) obesity due to excess Darion Kmaake, DIRECTOR ONCOLOGY calories 06/30/2019 F44.5 Conversion disorder with seizures or Darion Knaake, DIRECTOR ONCOLOGY convulsions 06/30/2019 G43.009 Migraine without aura, not intractable, Darion Kmaake, DIRECTOR ONCOLOGY without status migra 06/30/2019 Z68.43 Body mass index (BMI) 50.0-59.9, adult Darionshakira Mena, DIRECTOR ONCOLOGY 06/23/2019 R03.0 Elevated blood-pressure reading, without Zsofia Ray, CULLET WASHER diagnosis of hypert 06/23/2019 E66.01 Morbid (severe) obesity due to excess Zsofia Ray, CULLET WASHER calories 06/23/2019 F44.5 Conversion disorder with seizures or Zsofia Ray, CULLET WASHER convulsions 06/23/2019 G47.33 Obstructive sleep apnea (adult) (pediatric) Zsofia Ray , CULLET WASHER 06/23/2019 E55.9 Vitamin D deficiency, unspecified Zsofia Ray, CULLET WASHER 05/26/2019 G43.009 Migraine without aura, not intractable, Darion Vincentke, DIRECTOR ONCOLOGY without status migra 05/26/2019 E66.01 Morbid (severe) obesity due to excess Darion Kmaake, DIRECTOR ONCOLOGY calories 05/26/2019 Z79.899 Other assisted (current) drug therapy Darion Kmaake, DIRECTOR ONCOLOGY 05/26/2019 F44.5 Conversion disorder with seizures or Darion Mena NP convulsions Plan of Treatment Future Appointment(s):11/24/2019 8:20 am - MOSHE Doherty at [facility] Internal Medicine - Ccmob12/15/2019 11:30 am - Darion eMna NP at [facility] Functional Status Description No Information Available Mental Status Description No Information Available Referrals Refer to Dr Reason for Referral Status Appt Date [facility] Morbid obesity; Needs Received Partial Living baratric consult [address] [facility] [address] [place] [address] [phone]
[2019-12-07 14:32] VITALS: BP 132/84
--- NOTE | 2019-12-07 14:36 | ED ---
Dizziness - HPI Summary HPI Summary: Patient presents to the ED with concerns of dizziness. Patient has known vertigo and takes meclizine twice daily for symptoms. She states she feels they may be related to panic attacks as they are worse when she attempts to leave the house. She states she has dizziness daily in the morning and feels better throughout the afternoon. Patient does take Celexa for anxiety daily. She states her cover marker told her to come here for evaluation. She does see neurology for seizures. She was seen 1 week ago for same and labs were unremarkable. Pt states she comes often for same - to receive fluids. - History Of Current Complaint Chief Complaint: EDDizziness Stated Complaint: DIZZINESS PER PT Time Seen by Provider: 12/07/19 13:59 Hx Obtained From: Patient Timing: Constant Severity Initially: Moderate Severity Currently: Moderate Character: Dizzy Aggravating Factor(s): Nothing Alleviating Factor(s): Nothing Associated Signs And Symptoms: Positive: Negative - Risk Factors Cardiac Risk Factors: Negative CVA Risk Factor: Negative - Allergies/Home Medications Allergies/Adverse Reactions: Allergies Allergy/AdvReac Type Severity Reaction Status Date / Time blueberry Allergy Severe Hives/Diff. Verified 11/30/19 11:16 Breathing/I tching diphenhydramine Allergy Severe Swelling Verified 11/30/19 11:16 [From Benadryl] paroxetine [From Paxil] Allergy Severe Swelling Verified 11/30/19 11:16 Penicillins Allergy Severe Shortness Verified 11/30/19 11:16 of Breath watermelon Allergy Severe Hives/Diff. Verified 11/30/19 11:16 Breathing/I tching amoxicillin [From Augmentin] Allergy Intermediate Hives Verified 11/30/19 11:16 clavulanic acid Allergy Intermediate Hives Verified 11/30/19 11:16 [From Augmentin] formoterol [From Dulera] Allergy Intermediate Hives Verified 11/30/19 11:16 iohexol [From Omnipaque] Allergy Intermediate Hives Verified 11/30/19 11:16 metronidazole Allergy Intermediate Hives Verified 11/30/19 11:16 sertraline [From Zoloft] Allergy Intermediate Hives Verified 11/30/19 11:16 zonisamide Allergy Intermediate Hives Verified 11/30/19 11:16 pseudoephedrine Allergy Unknown Unknown Verified 11/30/19 11:16 Reaction Details acetaminophen [From Tylenol] Allergy dilusional Verified 11/30/19 11:16 coconut Allergy Hives/Diff. Verified 11/30/19 11:16 Breathing/I tching codeine Allergy Altered Verified 11/30/19 11:16 Mental Status guaifenesin [From Mucinex] Allergy Unknown Verified 11/30/19 11:16 Reaction Details latex Allergy Hives Verified 11/30/19 11:16 lemon oil Allergy Vomiting Verified 11/30/19 11:16 morphine Allergy See Comment Verified 11/30/19 11:16 pickle Allergy Intermediate Hives/Diff. Uncoded 11/30/19 11:16 Breathing/I tching PMH/Surg Hx/FS Hx/Imm Hx Previously Healthy: Yes Endocrine/Hematology History: Reports: Hx Diabetes - "pre diabetes", Hx Thyroid Disease, Hx Anemia Denies: Hx Unexplained Bleeding Cardiovascular History: Denies: Hx Aneurysm, Hx Angina, Hx Angioplasty, Hx Auto Implanted Cardiovert Defib, Hx Cardiac Arrest, Hx Cardiomegaly, Hx Congenital Heart Disease, Hx Congestive Heart Failure, Hx Coronary Artery Disease, Hx Deep Vein Thrombosis, Hx Embolism, Hx Hypercholesterolemia, Hx Hypotension, Hx Hypertension, Hx Myocardial Infarction, Hx Pacemaker/ICD, Hx Peripheral Vascular Disease, Hx Rheumatic Fever, Hx Syncope, Hx Valvular Heart Disease, Other Cardiovascular Problems/Disorders Respiratory History: Reports: Hx Asthma, Hx Chronic Bronchitis, Hx Chronic Obstructive Pulmonary Disease (COPD) Denies: Hx Cystic Fibrosis, Hx Lung Cancer, Hx Pleural Effusion, Hx Pneumonia , Hx Pulmonary Edema, Hx Pulmonary Embolism, Hx Seasonal Allergies, Hx Sleep Apnea, Other Respiratory Problems/Disorders GI History: Reports: Hx Gastroesophageal Reflux Disease - ON DAILY PROLOSEC Denies: Hx Gall Bladder Disease, Hx Gastrointestinal Bleed, Hx Ulcer, Hx Urosepsis History: Denies: Hx Kidney Stones, Hx Renal Disease Sensory History: Reports: Hx Contacts or Glasses Denies: Hx Cataracts, Hx Eye Injury, Hx Eye Prosthesis, Hx Glaucoma, Hx Legally Blind, Hx Macular Degeneration, Hx Vision Problem, Hx Deafness, Hx Hearing Aid, Hx Hearing Problem, Other Sensory Impairments Opthamlomology History: Reports: Hx Contacts or Glasses Denies: Hx Cataracts, Hx Eye Injury, Hx Eye Prosthesis, Hx Glaucoma, Hx Legally Blind, Hx Macular Degeneration, Hx Vision Problem, Other Sensory Impairments Neurological History: Reports: Hx Developmental Delay - 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 and [employer]. Mental health, Hx Bipolar Disorder Denies: Hx Post Traumatic Stress Disorder, Hx Schizophrenia, Hx Suicide Attempt, Hx Substance Abuse - Cancer History Cancer Type, Location and Year: seizure disorder - Surgical History Surgery Procedure, Year, and Place: Scalp Cystectomy May 2014, Abdominal Lipoma May 2014 Hx Anesthesia Reactions: No - Immunization History Hx Pertussis Vaccination: No Immunizations Up to Date: Yes Infectious Disease History: No Infectious Disease History: Denies: Hx Clostridium Difficile, Hx Hepatitis, Hx Human Immunodeficiency Virus (HIV), Hx of Known/Suspected MRSA, Hx Shingles, Hx Tuberculosis, Hx Known/ Suspected VRE, Hx Known/Suspected VRSA, History Other Infectious Disease, Traveled Outside the [place] in Last 30 Days - Family History Known Family History: Positive: Cardiac Disease, Diabetes Negative: Renal Disease, Seizure Disorder - Social History Occupation: Employed Full-time Lives: With Family Alcohol Use: None Hx Substance Use: No Substance Use Type: Reports: None Hx Tobacco Use: Yes Smoking Status (MU): Former Smoker Type: Cigarettes Have You Smoked in the Last Year: No Review of Systems Negative: Fever, Chills, Fatigue, Skin Diaphoresis Negative: Palpitations, Chest Pain Genitourinary: Negative Positive: no symptoms reported, see HPI Negative: Arthralgia, Myalgia Neurological: Negative All Other Systems Reviewed And Are Negative: Yes Physical Exam Triage Information Reviewed: Yes Vital Signs On Initial Exam: Initial Vitals Temp Pulse Resp BP Pulse Ox 97.8 F 98 18 142/103 98 12/07/19 12:07 12/07/19 12:07 12/07/19 12:07 12/07/19 12:07 12/07/19 12:07 Vital Signs Reviewed: Yes Appearance: Positive: Well-Appearing, Well-Nourished Skin: Positive: Warm, Skin Color Reflects Adequate Perfusion Neck: Positive: Supple, No Lymphadenopathy Respiratory/Lung Sounds: Positive: Clear to Auscultation, Breath Sounds Present Cardiovascular: Positive: RRR, Pulses are Symmetrical in both Upper and Lower Extremities Musculoskeletal: Positive: Normal, Strength/ROM Intact Neurological: Positive: Speech Normal Psychiatric: Positive: Normal, Affect/Mood Appropriate AVPU Assessment: Alert Procedures - Sedation Patient Received Moderate/Deep Sedation with Procedure: No Diagnostics - Vital Signs Vital Signs Temp Pulse Resp BP Pulse Ox 12/07/19 12:07 97.8 F 98 18 142/103 98 - Laboratory Lab Statement: Any lab studies that have been ordered have been reviewed, and results considered in the medical decision making process. Dizzy Course/Dx - Course Course Of Treatment: During this course of treatment, the patient is evaluated for symptoms of dizziness. Patient has history of dizziness and states this feels similar. She has meclizine at home, used it today without relief. She does feel this is more related to her symptoms of panic attacks and anxiety. She is also stating she is dehydrated. She states she does not drink water she doesn't like the taste. She states she will drink Gatorade every now and then, but only 2 small ones daily. No other fluid intake. I discussed with the patient if she feels these are related to her symptoms of anxiety attacks and panic attacks, I will give her a very small amount of hydroxyzine to see if her symptoms improve prior to going outside due to her apparent agoraphobia. However, I have greatly encouraged she fluid intake and at this time we will not work her up again for her diagnosis of dizziness. She states she is OK with that. Ambulating well, no dizziness noted, pt at baseline. Water given. - Diagnoses Provider Diagnoses: Dizziness, Dehydration Discharge ED - Sign-Out/Discharge Documenting (check all that apply): Patient Departure - Discharge Plan Condition: Stable Disposition: HOME Prescriptions: hydrOXYzine HCL TAB* [Atarax 25 MG TAB*] 25 mg PO TID PRN #8 tab PRN Reason: Itching Patient Education Materials: Hydroxyzine (By mouth) Referrals: Jose Bell NP [Primary Care Provider] - Additional Instructions: Try the hydroxyzine 25mg as needed for any symptoms of panic attacks - Billing Disposition and Condition Condition: STABLE Disposition: Home - Attestation Statements Provider Attestation: I was available for consultation for this patient. I did not evaluate the patient or participate in any medical decision making or disposition decisions unless I am specifically named in the chart as having consulted on the patient. If I have consulted on the patient, please see my own ED note on the patient encounter. Wolf Oliver MD
== END 2019-12-07 14:30 | disposition home or self-care (01) ==
LOC: ED 12:03
DX: R42 Dizziness and giddiness (principal); E86.0 Dehydration; F41.9 Anxiety disorder, unspecified; E07.9 Disorder of thyroid, unspecified; J44.9 Chronic obstructive pulmonary disease, unspecified; K21.9 Gastro-esophageal reflux disease without esophagitis; R62.50 Unspecified lack of expected normal physiological development in childhood; F32.9 Major depressive disorder, single episode, unspecified; Z87.891 Personal history of nicotine dependence; Z79.899 Other long term (current) drug therapy; Z88.5 Allergy status to narcotic agent; Z88.0 Allergy status to penicillin; Z88.8 Allergy status to other drugs, medicaments and biological substances; Z88.6 Allergy status to analgesic agent; Z88.1 Allergy status to other antibiotic agents; Z91.041 Radiographic dye allergy status; Z91.040 Latex allergy status
CPT/HCPCS: 99282

== ENCOUNTER 2020-01-02 16:39 | Emergency (ER) | payer OTHER ==
--- NOTE | 2020-01-02 17:00 | ED ---
HPI Chest Pain - HPI Summary HPI Summary: 39-year-old female presents to the emergency department today complaining of 3 days of right anterior stabbing chest pain which is made worse with deep breaths. Patient states when the chest pain began she was at rest with no associated symptoms such as lightheadedness, nausea, diaphoresis, arm pain, jaw pain. Patient has no significant history of myocardial infarction. Patient denies recent long distance travel, immobilization, surgery. Patient denies oral contraceptive use. Patient denies recent records show drug use or alcohol use. Patient states her pain began as episodic pain however it is now a constant sharp pain. Patient is symptomatic upon arrival. Patient is otherwise well and denies fevers, abdominal pain, cough, fatigue, nausea, vomiting, diarrhea, pain with urination, rash. - History of Current Complaint Chief Complaint: EDChestWallPain Time Seen by Provider: 01/02/20 16:48 Hx Obtained From: Patient Hx Last Menstrual Period: current Onset/Duration: Started Days Ago Timing: Constant Initial Severity: Moderate Current Severity: Moderate Pain Intensity: 7 Pain Scale Used: 0-10 Numeric Chest Pain Location: Right Anterior Chest Pain Radiates: No Associated Signs and Symptoms: Positive: Chest Pain, Anxiety, Chills - Allergy/Home Medications Allergies/Adverse Reactions: Allergies Allergy/AdvReac Type Severity Reaction Status Date / Time blueberry Allergy Severe Hives/Diff. Verified 01/02/20 16:51 Breathing/I tching diphenhydramine Allergy Severe Swelling Verified 01/02/20 16:51 [From Benadryl] paroxetine [From Paxil] Allergy Severe Swelling Verified 01/02/20 16:51 Penicillins Allergy Severe Shortness Verified 01/02/20 16:51 of Breath watermelon Allergy Severe Hives/Diff. Verified 01/02/20 16:51 Breathing/I tching amoxicillin [From Augmentin] Allergy Intermediate Hives Verified 01/02/20 16:51 clavulanic acid Allergy Intermediate Hives Verified 01/02/20 16:51 [From Augmentin] formoterol [From Dulera] Allergy Intermediate Hives Verified 01/02/20 16:51 iohexol [From Omnipaque] Allergy Intermediate Hives Verified 01/02/20 16:51 metronidazole Allergy Intermediate Hives Verified 01/02/20 16:51 sertraline [From Zoloft] Allergy Intermediate Hives Verified 01/02/20 16:51 zonisamide Allergy Intermediate Hives Verified 01/02/20 16:51 pseudoephedrine Allergy Unknown Unknown Verified 01/02/20 16:51 Reaction Details acetaminophen [From Tylenol] Allergy dilusional Verified 01/02/20 16:51 coconut Allergy Hives/Diff. Verified 01/02/20 16:51 Breathing/I tching codeine Allergy Altered Verified 01/02/20 16:51 Mental Status guaifenesin [From Mucinex] Allergy Unknown Verified 01/02/20 16:51 Reaction Details latex Allergy Hives Verified 01/02/20 16:51 lemon oil Allergy Vomiting Verified 01/02/20 16:51 morphine Allergy See Comment Verified 01/02/20 16:51 peanut Allergy Unknown Verified 01/02/20 16:51 Reaction Details pickle Allergy Intermediate Hives/Diff. Uncoded 01/02/20 16:51 Breathing/I tching Home Medications: Home Medications Albuterol 2.5MG/3ML (0.083%)* [Ventolin 2.5 MG/3 ML NEB.MAXIMILIANO*] 2.5 mg INH .Q4-6H PRN 09/03/19 [History Confirmed 11/30/19] Albuterol HFA INHALER* [Ventolin HFA Inhaler*] 2 puff INH QID PRN 09/03/19 [ History Confirmed 11/30/19] Cetirizine* [ZyrTEC 10 MG TAB*] 10 mg PO DAILY 09/03/19 [History Confirmed 11/30] Citalopram TAB* [CeleXA TAB*] 30 mg PO DAILY 09/03/19 [History Confirmed ] Doxepin (NF) 100 mg PO QPM 09/03/19 [History Confirmed 11/30/19] Ferrous Gluconate TAB* [Fergon TAB*] 324 mg PO BID 09/03/19 [History Confirmed 11/30/19] Ibuprofen TAB* [Motrin TAB* 800 MG] 800 mg PO DAILY PRN 09/03/19 [History Confirmed 11/30/19] Levothyroxine TAB* [Synthroid TAB*] 75 mcg PO DAILY 09/03/19 [History Confirmed 11/30/19] Omeprazole CAP (NF) [Prilosec CAP* 20 MG] 20 mg PO DAILY 09/03/19 [History Confirmed 11/30/19] lamoTRIgine TAB(*) [LaMICtal TAB(*)] 400 mg PO BID 09/03/19 [History Confirmed 11/30/19] Chlorpheniramine/Dextromethorp [Robitussin Long-Acting Liq] 5 ml PO BID PRN [History Confirmed 11/30/19] Cholecalciferol CAP/TAB(NF) [Vitamin D3 CAP/TAB (NF)] 1,000 unit PO DAILY [History Confirmed 11/30/19] Erenumab-Aooe [Aimovig Autoinjector] 70 mg SUBCUT MONTHLY 11/30/19 [History Confirmed 11/30/19] Fluticasone NASAL SPRAY 50MCG* [Flonase NASAL SPRAY 50MCG*] 2 spray BOTH NARES DAILY 11/30/19 [History Confirmed 11/30/19] Meclizine TAB* [Antivert 12.5 TAB*] 25 mg PO BID 11/30/19 [History Confirmed ] Oxymetazoline 0.05% NASAL SPR* [Afrin 0.05% NASAL SPRAY*] 2 spray BOTH NARES BID PRN 11/30/19 [History Confirmed 11/30/19] buPROPion TAB* [Wellbutrin TAB*] 100 mg PO QAM 11/30/19 [History Confirmed 11/30] hydrOXYzine HCL TAB* [Atarax 25 MG TAB*] 25 mg PO TID PRN #8 tab 12/07/19 [Rx] PMH/Surg Hx/FS Hx/Imm Hx Endocrine/Hematology History: Reports: Hx Diabetes - "pre diabetes", Hx Thyroid Disease, Hx Anemia Denies: Hx Unexplained Bleeding Cardiovascular History: Denies: Hx Aneurysm, Hx Angina, Hx Angioplasty, Hx Auto Implanted Cardiovert Defib, Hx Cardiac Arrest, Hx Cardiomegaly, Hx Congenital Heart Disease, Hx Congestive Heart Failure, Hx Coronary Artery Disease, Hx Deep Vein Thrombosis, Hx Embolism, Hx Hypercholesterolemia, Hx Hypotension, Hx Hypertension, Hx Myocardial Infarction, Hx Pacemaker/ICD, Hx Peripheral Vascular Disease, Hx Rheumatic Fever, Hx Syncope, Hx Valvular Heart Disease, Other Cardiovascular Problems/Disorders Respiratory History: Reports: Hx Asthma, Hx Chronic Bronchitis, Hx Chronic Obstructive Pulmonary Disease (COPD) Denies: Hx Cystic Fibrosis, Hx Lung Cancer, Hx Pleural Effusion, Hx Pneumonia , Hx Pulmonary Edema, Hx Pulmonary Embolism, Hx Seasonal Allergies, Hx Sleep Apnea, Other Respiratory Problems/Disorders GI History: Reports: Hx Gastroesophageal Reflux Disease - ON DAILY PROLOSEC Denies: Hx Gall Bladder Disease, Hx Gastrointestinal Bleed, Hx Ulcer, Hx Urosepsis History: Denies: Hx Kidney Stones, Hx Renal Disease Sensory History: Reports: Hx Contacts or Glasses Denies: Hx Cataracts, Hx Eye Injury, Hx Eye Prosthesis, Hx Glaucoma, Hx Legally Blind, Hx Macular Degeneration, Hx Vision Problem, Hx Deafness, Hx Hearing Aid, Hx Hearing Problem, Other Sensory Impairments Opthamlomology History: Reports: Hx Contacts or Glasses Denies: Hx Cataracts, Hx Eye Injury, Hx Eye Prosthesis, Hx Glaucoma, Hx Legally Blind, Hx Macular Degeneration, Hx Vision Problem, Other Sensory Impairments Neurological History: Reports: Hx Developmental Delay - 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., Hx Migraine - OCCASSIONAL, USES [facility], Hx Seizures - SINCE 2004; LAST WAS 04/2014, Other Neuro Impairments/Disorders - epilepsy Denies: Hx Dementia, Hx Transient Ischemic Attacks (TIA) Psychiatric History: Reports: Hx Anxiety - ON MEDS PRN, Hx Depression, Hx Community Mental Health Tx - not currently; previously used [employer] and [facility] Mental health, Hx Bipolar Disorder Denies: Hx Post Traumatic Stress Disorder, Hx Schizophrenia, Hx Suicide Attempt, Hx Substance Abuse - Cancer History Cancer Type, Location and Year: seizure disorder - Surgical History Surgery Procedure, Year, and Place: Scalp Cystectomy May 2014, Abdominal Lipoma May 2014 Hx Anesthesia Reactions: No Infectious Disease History: No Infectious Disease History: Denies: Hx Clostridium Difficile, Hx Hepatitis, Hx Human Immunodeficiency Virus (HIV), Hx of Known/Suspected MRSA, Hx Shingles, Hx Tuberculosis, Hx Known/ Suspected VRE, Hx Known/Suspected VRSA, History Other Infectious Disease, Traveled Outside the [place] in Last 30 Days - Family History Known Family History: Positive: Cardiac Disease, Diabetes Negative: Renal Disease, Seizure Disorder - Social History Alcohol Use: None Hx Substance Use: No Substance Use Type: Reports: None Hx Tobacco Use: Yes Smoking Status (MU): Former Smoker Type: Cigarettes Have You Smoked in the Last Year: No Review of Systems Constitutional: Negative Eyes: Negative ENT: Negative Positive: Chest Pain Respiratory: Negative Gastrointestinal: Negative Genitourinary: Negative Musculoskeletal: Negative Skin: Negative Neurological/Mental Status: Negative Positive: Anxious. Negative: Depressed All Other Systems Reviewed And Are Negative: Yes Physical Exam Triage Information Reviewed: Yes Vital Signs On Initial Exam: Initial Vitals Temp Pulse Resp BP Pulse Ox 97.7 F 110 16 179/93 95 01/02/20 16:45 01/02/20 16:45 01/02/20 16:45 01/02/20 16:45 01/02/20 16:45 Vital Signs Reviewed: Yes Appearance: Positive: Well-Appearing, No Pain Distress, Well-Nourished Skin: Positive: Warm, Skin Color Reflects Adequate Perfusion Eyes: Positive: EOMI, SHANNON ENT: Positive: Hearing grossly normal Respiratory/Lung Sounds: Positive: Clear to Auscultation, Breath Sounds Present Cardiovascular: Positive: Tachycardia, S1, S2 Abdomen Description: Positive: Nontender, Soft Bowel Sounds: Positive: Present Musculoskeletal: Positive: Strength/ROM Intact Neurological: Positive: Sensory/Motor Intact, Alert, Oriented to Person Place, Time, Normal Gait, Facial Symmetry, Speech Normal Psychiatric: Positive: Normal, Affect/Mood Appropriate AVPU Assessment: Alert Procedures - Sedation Patient Received Moderate/Deep Sedation with Procedure: No Diagnostics - Vital Signs Vital Signs Temp Pulse Resp BP Pulse Ox 01/02/20 16:45 97.7 F 110 16 179/93 95 - Laboratory Result Diagrams: 01/02/20 16:55 01/02/20 16:55 Lab Statement: Any lab studies that have been ordered have been reviewed, and results considered in the medical decision making process. Chest Pain Course/Dx - Course Course Of Treatment: Patient was evaluated in the emergency department today for chest pain. Vitals noted and stable. Tissue is mildly tachycardic. EKG was done which shows no evidence of STEMI. Normal sinus rhythm at a rate of 99 bpm. Normal PA and QTc interval. No evidence of WPW or Brugada. There are T- wave inversions in leads 3. EKG findings are unchanged when compared to priors done on 05/01/19. Laboratory studies returned showing no significant abnormalities. There is no leukocytosis, anemia, electrolyte disturbance, negative d-dimer, negative troponin. No evidence for acute medical process requiring intervention at this time. HEART score: 1, PERC positive, Wells score for PE 1.5 (low risk). Patient discharged with outpatient follow-up for further investigation of chest pain. Serial troponins deemed unnecessary as patient has been symptomatic for multiple days. - Chest Pain Differential Diagnosis/HQI/PQRI: Acute ND, ACS, Angina, Chest Wall, Pulmonary Embolism - Diagnoses Provider Diagnoses: Atypical chest pain Discharge ED - Sign-Out/Discharge Documenting (check all that apply): Patient Departure - Discharge Plan Condition: Stable Disposition: HOME Patient Education Materials: Chest Pain (ED) Referrals: Jose Bell NP [Primary Care Provider] - 3 Days Additional Instructions: You were seen in the emergency department today due to chest pain. Cardiac workup was done today including an EKG and blood work which found no evidence of acute pathology requiring intervention at this time. Although I am uncertain what is causing your symptoms cardiac origin cannot be ruled out. Please follow-up with your primary care provider or animal shelter supervisor in 3 days for further evaluation and management. Please return to this emergency Department immediately if you develop any new or worsening symptoms. - Billing Disposition and Condition Condition: STABLE Disposition: Home
[2020-01-02 17:05] LABS: ABS Basophils 0.1 10^3/ul (0-0.2); ABS Eosinophils 0.1 10^3/ul (0-0.6); ABS Lymphocytes 1.8 10^3/ul (1.0-4.8); ABS Monocytes 0.4 10^3/ul (0-0.8); ABS Neutrophils 5.3 10^3/ul (1.5-7.7); Eosinophil % 1.9 %; Hematocrit 37 % (35-47); Lymphocyte % 23.4 %; Mean Corpuscular HGB Conc 35 g/dL (31-36); Mean Corpuscular Hemoglobin 34 pg (27-31); Mean Corpuscular Volume 96 fL (80-97); Mean Platelet Volume 7.2 fL (7.4-10.4); Nucleated Red Blood Cells % 0.1; Platelet Count 303 10^3/uL (150-450); Red Blood Count 3.87 10^6 /uL (3.70-4.87); Red Cell Distribution Width 14 % (10-15); White Blood Count 7.7 10^3/uL (3.5-10.8)
[2020-01-02 17:23] LABS: Albumin 4.2 g/dL (3.2-5.2); Albumin/Globulin Ratio 1.4 (1-3); BUN/Creatinine Ratio 12.5 (8-20); Calcium 9.2 mg/dL (8.6-10.3); EGFR Non-African American 71.9 (>60); Globulin 2.9 g/dL (2-4); Potassium 4.1 mmol/L (3.5-5.0); Total Bilirubin 0.4 mg/dL (0.2-1.0); Total Protein 7.1 g/dL (6.4-8.9)
[2020-01-02 17:33] LABS: Troponin I 0.01 ng/mL (<0.03)
[2020-01-02 17:56] VITALS: BP 139/93
== END 2020-01-02 17:55 | disposition home or self-care (01) ==
LOC: ED 16:39
DX: R07.89 Other chest pain (principal); R68.83 Chills (without fever); F41.9 Anxiety disorder, unspecified; E07.9 Disorder of thyroid, unspecified; R73.03 Prediabetes; J44.9 Chronic obstructive pulmonary disease, unspecified; K21.9 Gastro-esophageal reflux disease without esophagitis; G43.909 Migraine, unspecified, not intractable, without status migrainosus; G40.909 Epilepsy, unspecified, not intractable, without status epilepticus; Z88.6 Allergy status to analgesic agent; Z88.1 Allergy status to other antibiotic agents; Z91.041 Radiographic dye allergy status; Z91.040 Latex allergy status; Z88.5 Allergy status to narcotic agent; Z91.010 Allergy to peanuts; Z88.0 Allergy status to penicillin; Z88.8 Allergy status to other drugs, medicaments and biological substances; Z91.018 Allergy to other foods; Z87.891 Personal history of nicotine dependence
CPT/HCPCS: 36415; 80053; 84484; 85025; 85379; 85610; 93005; 99282

== ENCOUNTER 2020-02-24 17:23 | Emergency (ER) | payer OTHER ==
--- OUTSIDE RECORDS SUMMARY | 2020-02-24 17:59 | XMS REPORT | Continuity of Care Document ---
:1980 External Reference #:[id number] Author Name Darion Mena NP (transmitted by agent of provider Jennifer Willis) Address [address] [facility], [place] [address] Care Team Providers Name Role Phone Sari Vazquez MD - Dermatology Care Team Information Casino Host Fatoumata Pritchard MD - Psychiatry Care Team Information Casino Host Henrando Marin MD - Allergy & Care Team Information Casino Host Immunology Eron Manning MD - Care Team Information Casino Host [phone] Otolaryngology Yossi Lagos MD - Surgery Care Team Information Casino Host [phone] [facility] [place] [facility] - [place] Care Team Information Casino Host [phone] Diagnostic [facility] Living - Care Team Information Casino Host Chilling Hood Operator Jose Bell WATCH MECHANIC - Nurse Care Team Information Casino Host [phone] Practitioner Momo Machado MD - Plastic and Care Team Information Casino Host [phone] Reconstructive Surgery Problems Active Problems Provider Date [...] Use Denies Drug Use Smoking Status Reviewed: 02/04/20 Patient is a former smoker Exercise Type/Frequency [...] Medications SIG Qnty Indications Ordering Date Provider Doxepin HCL take two caps by 60caps G43.009 Clinton Blanco 02/04/2020 50mg mouth at night. Pablo Yadav Capsules Citalopram 1 by mouth every 90tabs F43.23 Jose Bell, 12/24/2019 Hydrobromide day WATCH MECHANIC 40mg Tablets Hydroxyzine HCL take one tablet by 30tabs Jose Bell, 12/08/2019 25mg mouth 2 x daily as WATCH MECHANIC Tablets needed for anxiety Bupropion take 1 tablet by 30tabs F43.23 Jose Bell, 11/24/2019 Hydrochloride ER mouth every day in WATCH MECHANIC (SR) the morning 100mg Tablets ER 12HR Vitamin D3 1 by mouth every 90tabs E55.9 Jose Bell, 06/23/2019 1000Unit day WATCH MECHANIC Tablets Meclizine HCL one tablet twice a 60tabs Jose Bell, 05/10/2019 25mg day if too WATCH MECHANIC Tablets sedating reduce to one every night at bedtime Aimovig inject sq once a 3ml Clinton Blanco 05/07/2019 70mg/ml month Pablo Yadav Solution Auto-Inject Blood Pressure use daily to 1units G43.009 Jose Bell, 04/07/2019 Monitor Auto monitor bp daily WATCH MECHANIC Inflate Misc Walker Swivel use with 1units R29.6 Jose Bell, 04/07/2019 Wheels/5 Adjustment ambulation WATCH MECHANIC Holes/3" 3" Misc Lamotrigine take 2 tab by 120tabs Clinton Blanco 01/15/2019 200mg mouth in the Pablo Yadav Tablets morning and take 2 tabs at bedtime. Trueplus Lancets 30G use to test twice 100units Tawny Ferrari MD 2018 Ultra Thin daily or as needed 30G Misc - true metrix device. Nasal [place] 12 Hour 2 sprays each 30ml J01.90 Jose Bell, 10/21/2018 nostril 2x daily WATCH MECHANIC 0.05% Solution as needed for congestion Robitussin 12 Hour 5 milliliters by 89ml Jose Bell, 10/21/2018 Cough Relief mouth twice a day WATCH MECHANIC 30mg/5ML as needed Suer Fluticasone use 2 sprays in 16units J01.90 Jose Bell, 10/21/2018 Propionate each nostril one WATCH MECHANIC 50mcg/Act time a day Suspension True Focus Self test blood twice 100units Tawny Ferrari MD 08/17/2018 Monitoring Blood daily or as Glucose Test Strips needed(true metrix device) Strips True Metrix Go Blood use daily as 1units Jose Bell, 08/17/2018 Glucose Meter directed last WATCH MECHANIC visit: 08/19/18 w/Device Kit Ventolin HFA 2 puffs by mouth 8gm J45.30 Jose Bell, 07/15/2018 four times a day WATCH MECHANIC 108(90Base) mcg/Act as needed Aerosol Ibuprofen take one tablet 90tabs Jose Bell, 06/24/2016 800mg daily as needed. WATCH MECHANIC Tablets Omeprazole take one capsule 30caps K21.9 Tawny Ferrari MD 09/15/2015 20mg by mouth every day Capsules DR PETERSON Cetirizine HCL 1 by mouth every 90tabs Jose Bell, 03/31/2015 day WATCH MECHANIC 10mg Tablets Ferrous Gluconate take one tablet by 180tabs D50.9 Jose Bell, 2013 mouth twice daily WATCH MECHANIC 324(38Fe) mg Tablets Albuterol Sulfate inhale the 100units Jose Bell, 11/02/2012 contents of one WATCH MECHANIC (2.5mg/3ML) 0.083% vial via nebulizer Nebulizer every 4 to 6 hours as needed Levothyroxine Sodium take 1 tablet by 90tabs E03.9 Jose Bell, 00/00/ 0000 mouth once daily WATCH MECHANIC 75mcg Tablets History Medications Citalopram Take 3 tabs po 42tabs F43.23 Jose Bell, 11/24/2019 - Hydrobromide qday for 1 week, WATCH MECHANIC 12/24/2019 10mg then 2 tabs for Tablets 1 week, then 1 tab for 1 week then stop Azithromycin take 2 tablets 6tabs H66.93 Yudi Carlin, 09/06/2019 - 250mg on day 1, then 1 M.D. Unknown Tablets tab daily for days 2-5 Azithromycin take 2 tablets 6tabs H66.93 Belia Crow, 09/01/2019 - 250mg on day 1, then 1 MD 09/05/2019 Tablets tab daily for days 2-5 Immunizations CPT Code Status Date Vaccine Reaction Lot # [id number] Given 09/15/2019 Influ Vacc Quadrivalent pharmacy administered Preser/Antibiotic Free Im Use Flucelvax 88114 Given 08/19/2018 Influenza Virus Vaccine, [id number] Quadrivalent, Split, Preservative Free 69873 Given 07/28/2018 Influenza Virus Vaccine, Quadrivalent, Split, Preservative Free 59996 Given 07/28/2018 Influenza Virus Vaccine, Quadrivalent, Split, Preservative Free 64571 Given 01/21/2018 Influenza Virus Vaccine, [id number] Quadrivalent, Split, Preservative Free 66267 Given 10/16/2017 Pneumonia Vaccine no reaction, pt [id number] tolerated well Q2035 Given 10/16/2015 Afluria Vaccine [id number] Given 08/20/2012 Tdap - [id number] Tetanus/Diptheria/Acellul ar Pertussis Q2038 Given 07/20/2012 Fluzone Vaccine [id number] Ordered 07/04/2016 Afluria Vaccine Vital Signs Date Vital Result Comment 02/04/2020 3:11pm Height 67 inches 5'7" Weight 350.00 lb Heart Rate 80 /min BP Systolic Sitting 132 mmHg BP Diastolic Sitting 88 mmHg BMI (Body Mass Index) 54.8 kg/m2 11/24/2019 8:22am Height 67 inches 5'7" Weight 349.00 lb Heart Rate 86 /min BP Systolic 130 mmHg BP Diastolic 88 mmHg Body Temperature 97.5 F O2 % BldC Oximetry 96 % BMI (Body Mass Index) 54.7 kg/m2 Results Test Acquired Date Facility Test Result H/L Range Note CBC Auto 01/02/2020 [facility] White Blood 7.7 10^3/uL Normal 3.5-10.[address] [place] [address] [phone] Red Blood Count 3.87 10^6/uL Normal 3.70-4.87 Hemoglobin 13.0 g/dL Normal 12.0-16.0 Hematocrit 37 % Normal 35-47 Mean Corpuscular Volume 96 fL Normal 80-97 Mean Corpuscular Hemoglobin 34 pg High 27-31 Mean Corpuscular HGB Conc 35 g/dL Normal 31-36 Red Cell Distribution Width 14 % Normal 10-15 Platelet Count 303 10^3/uL Normal 150-450 Mean Platelet Volume 7.2 fL Low 7.4-10.4 Abs Neutrophils 5.3 10^3/uL Normal 1.5-7.7 Abs Lymphocytes 1.8 10^3/uL Normal 1.0-4.8 Abs Monocytes 0.4 10^3/uL Normal 0-0.8 Abs Eosinophils 0.1 10^3/uL Normal 0-0.6 Abs Basophils 0.1 10^3/uL Normal 0-0.2 Abs Nucleated RBC 0.0 10^3/uL Granulocyte % 68.4 % Lymphocyte % 23.4 % Monocyte % 5.6 % Eosinophil % 1.9 % Basophil % 0.7 % Nucleated Red Blood Cells % 0.1 Inr/Protime 01/02/2020 [facility] Inr 1.10 High 0.82-1.[address] [place] [address] [phone] Laboratory 01/02/2020 [facility] D Dimer < 200 Normal Less Than 2 test finding [address] Quantitative ng/mL 230 [place] [address] [phone] Comp Metabolic 01/02/2020 [facility] Sodium 138 Normal 135- [address] mmol/[place] [address] [phone] Potassium 4.1 mmol/L Normal 3.5-5.0 Chloride 107 mmol/L Normal 101-111 Co2 Carbon Dioxide 24 mmol/L Normal 22-32 Anion Gap 7 mmol/L Normal 2-11 Glucose 154 mg/dL High 70-100 Blood Urea Nitrogen 11 mg/dL Normal 6-24 Creatinine 0.88 mg/dL Normal 0.51-0.95 BUN/Creatinine Ratio 12.5 Normal 8-20 Calcium 9.2 mg/dL Normal 8.6-10.3 Total Protein 7.1 g/dL Normal 6.4-8.9 Albumin 4.2 g/dL Normal 3.2-5.2 Globulin 2.9 g/dL Normal 2-4 Albumin/Globulin Ratio 1.4 Normal 1-3 Total Bilirubin 0.40 mg/dL Normal 0.2-1.0 Alkaline Phosphatase 94 U/L Normal 34-104 Alt 30 U/L Normal 7-52 Ast 27 U/L Normal 13-39 Egfr Non- 71.9 >60 Egfr 87.0 >60 3 Laboratory test 01/02/2020 [facility] Troponin-I 0.01 <0.03 [address] (TnI) ng/[place] [address] [phone] CBC No Diff 11/30/2019 [facility] White Blood 7.1 Normal 3.5- 10.[address] Count 10^3/[place] [address] [phone] Red Blood Count 3.89 10^6/uL Normal 3.70-4.87 Hemoglobin 13.0 g/dL Normal 12.0-16.0 Hematocrit 38 % Normal 35-47 Mean Corpuscular Volume 97 fL Normal 80-97 Mean Corpuscular Hemoglobin 33 pg High 27-31 Mean Corpuscular HGB Conc 35 g/dL Normal 31-36 Red Cell Distribution Width 14 % Normal 10-15 Platelet Count 312 10^3/uL Normal 150-450 Mean Platelet Volume 7.1 fL Low 7.4-10.4 Comp Metabolic 11/30/2019 [facility] Sodium 137 mmol/L Normal 135-[address] [place] [address] [phone] Potassium 4.2 mmol/L Normal 3.5-5.0 Chloride 103 mmol/L Normal 101-111 Co2 Carbon Dioxide 27 mmol/L Normal 22-32 Anion Gap 7 mmol/L Normal 2-11 Glucose 113 mg/dL High 70-100 Blood Urea Nitrogen 11 mg/dL Normal 6-24 Creatinine 0.86 mg/dL Normal 0.51-0.95 BUN/Creatinine Ratio 12.8 Normal 8-20 Calcium 9.2 mg/dL Normal 8.6-10.3 Total Protein 7.0 g/dL Normal 6.4-8.9 Albumin 4.0 g/dL Normal 3.2-5.2 Globulin 3.0 g/dL Normal 2-4 Albumin/Globulin Ratio 1.3 Normal 1-3 Total Bilirubin 0.40 mg/dL Normal 0.2-1.0 Alkaline Phosphatase 93 U/L Normal 34-104 Alt 27 U/L Normal 7-52 Ast 27 U/L Normal 13-39 Egfr Non- 73.8 >60 Egfr 89.4 >60 5 Laboratory 11/30/2019 [facility] Lamotrigine 12.6 2.5 - 6 test finding [address] (Lamictal) g/mL 15.0 [place] [address] [phone] Laboratory 11/03/2019 [facility] Point of Care 93 mg/dL Normal 70-100 7 test finding [address] [place] [address] [phone] CBC Auto Diff 09/03/2019 [facility] White Blood 7.8 Normal 3.5 -10.[address] Count 10^3/[place] [address] [phone] Red Blood Count 4.15 10^6/uL Normal 3.70-4.87 [...] Blood Cells % 0.1 Comp Metabolic 09/03/2019 [facility] Sodium 139 mmol/L Normal 135-[address] [place] [address] [phone] Potassium 4.2 mmol/L Normal 3.5-5.0 Chloride 103 [...] Egfr Non- 66.2 >60 Egfr 80.1 >60 8 Laboratory test 08/26/2019 [facility] Point of Care 131 mg/dL High 70-100 [address] [place] [address] [phone] 1 Standard intensity warfarin therapeutic range: 2.0-3.0 High intensity warfarin therapeutic range: 2.5-3.5 2 Please note: The following may produce a false positive D Dimer test: - Rheumatoid factor greater than 60 IU/ml - Plasma hemoglobin greater than 0.05 gm/dl - Bilirubin greater than 50 mg/dl - Lipids greater than 1000 mg/dl - FDP greater than 20 ug/ml 3 Because ethnic data is not always [...] 5 Kidney failure <15 (or dialysis) 4 Troponin-I testing on Plasma Separator Tubes (PST) has a known false positive rate of 0.20-0.40%. All positive troponins reflex immediately to secondary confirmatory testing. Using the [employer] DxI 800 Access Immunoassay systems, the 99th percentile upper reference limit was demonstrated to be < 0.03 ng/mL. 5 Because ethnic data is not always readily [...] 15-29 5 Kidney failure <15 (or dialysis) 6 ADDITIONAL INFORMATION This test was developed and its performance characteristics determined by [facility] in a manner consistent with CLIA requirements. This test has not been cleared or approved by the U.S. Food and Drug Administration. Test Performed by: [facility] - [address] [address] Capital Equipment Specialist: Kenrick Hightower M.D. Ph.D.; CLIA# [id number] 7 Dielectric Tester: [id number] 8 Because ethnic data is not always [...] 5 Kidney failure <15 (or dialysis) 9 Dielectric Tester: [id number] Procedures Description No Information Available Medical Devices Description No Information Available Encounters Type Date Location Provider Dx Diagnosis Office Visit 02/04/2020 [facility] Darion Mena NP G43.009 Migraine w/o aura, 3:30p [facility] not intractable, w/o status migrainosus R42 Dizziness and giddiness R29.6 Repeated falls Office Visit 11/24/2019 8:20a [facility] Internal Zsofia Ray, F43.23 Adjustment 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 D17.1 [facility] MD Pino lipomatous neoplasm of skin, subcu of trunk Office Visit 10/05/2019 11:30a [facility] Darion Mena NP R42 Dizziness and [facility] giddiness F44.5 Conversion disorder with seizures or convulsions G43.009 Migraine w/o aura, not intractable, w/o status migrainosus G47.33 Obstructive sleep apnea (adult) (pediatric) Office Visit 09/01/2019 3:00p [facility] Internal Belia H66.93 Otitis media, Medicine - MD Crow unspecified, Ccmob bilateral R05 Cough R42 Dizziness and giddiness Assessments Date Code Description Provider 02/04/2020 G43.009 Migraine without aura, not intractable, Darion Mena NP without status migrainosus 02/04/2020 R42 Dizziness and giddiness Darion Mena NP 02/04/2020 R29.6 Repeated falls Darion Mena NP 11/24/2019 F43.23 Adjustment disorder with mixed anxiety and Zsofia Ray, WATCH MECHANIC depressed mood 11/24/2019 D17.1 Benign lipomatous neoplasm of skin and Zsofia Ray, WATCH MECHANIC subcutaneous tissue of trunk 11/24/2019 R42 Dizziness and giddiness MOSHE Doherty 11/23/2019 D17.1 Benign lipomatous neoplasm of skin and [place] Bella Pringle MD subcutaneous tissue of trunk 10/05/2019 R42 Dizziness and giddiness Darion Mena, JANNIE 10/05/2019 F44.5 Conversion disorder with seizures or Darionshakira Mena NP convulsions 10/05/2019 G43.009 Migraine without aura, not intractable, Darion KaurJANNIE jones without status migra 10/05/2019 G47.33 Obstructive sleep apnea (adult) (pediatric) Darion JANNIE Mena 09/01/2019 H66.93 Otitis media, unspecified, bilateral Belia Maria MD 09/01/2019 R05 Cough Belia Maria MD 09/01/2019 R42 Dizziness and giddiness Belia Maria MD Plan of Treatment 02/04/2020 - Darion MenaJANNIEG43.009 Migraine without aura, not intractable, without status migrainosusNew Medication:Doxepin HCL 50 mg - take two caps by mouth at night.Follow up:Three monthsRecommendations:Reduce doxepin to 50 mg capsules, take 1 capsule by mouth at night. Continue to have an Aimovig injection every 3 months at our facility.R42 Dizziness and gxnrcsawuL71.6 Repeated falls Functional Status Description No Information Available Mental Status Description No Information Available Referrals Refer to Dr Reason for Referral Status Appt Date Momo Machado MD Dr. Monacelli does not take [place] for Closed non-urgent matters. 12/29 22 [facility] [place] [address] [phone]
--- OUTSIDE RECORDS SUMMARY | 2020-02-24 17:59 | XMS REPORT | Continuity of Care Document ---
:1980 External Reference #:[id number] Author Name Darion Mena, PREPRESS STRIPPER Address [address], [place] [address] Care Team Providers Name Role Phone Sari Vazquez MD - Dermatology Care Team Information Allergist/Md Fatoumata Pritchard MD - Psychiatry Care Team Information Allergist/Md Hernando Marin MD - Allergy & Care Team Information Allergist/Md Immunology Eron Manning MD - Care Team Information Allergist/Md [phone] Otolaryngology Yossi Lagos MD - Surgery Care Team Information Allergist/Md [phone] [facility] - Sleep Disorder Care Team Information Allergist/Md Diagnostic [facility] - Care Team Information Allergist/Md [phone] Stepdown Nurse Jose Bell - Nurse Care Team Information Allergist/Md [phone] Practitioner Momo Machado MD - Plastic and Care Team Information Allergist/Md [phone] Reconstructive Surgery Problems Active Problems Provider Date [...] Indications Ordering Date Provider Doxepin HCL take one cap by 30caps G43.009 Clinton Blanco 02/04/2020 50mg mouth at night. Pablo Yadav Capsules Citalopram 1 by mouth every 90tabs F43.23 Jose Bell, 12/24/2019 Hydrobromide day CONSUMER ANALYST 40mg Tablets Hydroxyzine HCL take one tablet by 30tabs Jose Bell, 12/08/2019 25mg mouth 2 x daily as CONSUMER ANALYST Tablets needed for anxiety Bupropion take 1 tablet by 30tabs F43.23 Jose Bell, 11/24/2019 Hydrochloride ER mouth every day in CONSUMER ANALYST (SR) the morning 100mg Tablets ER 12HR Vitamin D3 1 by mouth every 90tabs E55.9 Jose Bell, 06/23/2019 1000Unit day CONSUMER ANALYST Tablets Meclizine HCL one tablet twice a 60tabs Jose Bell, 05/10/2019 25mg day if too CONSUMER ANALYST Tablets sedating reduce to one every night at bedtime Aimovig inject sq once a 3ml Clinton Blanco 05/07/2019 70mg/ml month Pablo Yadav Solution Auto-Inject Blood Pressure use daily to 1units G43.009 Jose Bell, 04/07/2019 Monitor Auto monitor bp daily CONSUMER ANALYST Inflate Misc Walker Swivel use with 1units R29.6 Jose Bell, 04/07/2019 Wheels/5 Adjustment ambulation CONSUMER ANALYST Holes/3" 3" Misc Lamotrigine take 2 tab by 120tabs Clinton Blanco 01/15/2019 200mg mouth in the Pablo Yadav Tablets morning and take 2 tabs at bedtime. Trueplus Lancets 30G use to test twice 100units Tawny Ferrari MD 2018 Ultra Thin daily or as needed 30G Misc - true metrix device. Nasal [place] 12 Hour 2 sprays each 30ml J01.90 Jose Bell, 10/21/2018 nostril 2x daily CONSUMER ANALYST 0.05% Solution as needed for congestion Robitussin 12 Hour 5 milliliters by 89ml Jose Bell, 10/21/2018 Cough Relief mouth twice a day CONSUMER ANALYST 30mg/5ML as needed Suer Fluticasone use 2 sprays in 16units J01.90 Jose Bell, 10/21/2018 Propionate each nostril one CONSUMER ANALYST 50mcg/Act time a day Suspension True Focus Self test blood twice 100units Tawny Ferrari MD 08/17/2018 Monitoring Blood daily or as Glucose Test Strips needed(true metrix device) Strips True Metrix Go Blood use daily as 1units Jose Bell, 08/17/2018 Glucose Meter directed last CONSUMER ANALYST visit: 08/19/18 w/Device Kit Ventolin HFA 2 puffs by mouth 8gm J45.30 Jose Bell, 07/15/2018 four times a day CONSUMER ANALYST 108(90Base) mcg/Act as needed Aerosol Ibuprofen take one tablet 90tabs Jose Bell, 06/24/2016 800mg daily as needed. CONSUMER ANALYST Tablets Omeprazole take one capsule 30caps K21.9 Tawny Ferrari MD 09/15/2015 20mg by mouth every day Capsules DR PETERSON Cetirizine HCL 1 by mouth every 30tabs Jose Bell, 03/31/2015 day CONSUMER ANALYST 10mg Tablets Ferrous Gluconate take one tablet by 180tabs D50.9 Jose Bell, 2013 mouth twice daily CONSUMER ANALYST 324(38Fe) mg Tablets Albuterol Sulfate inhale the 100units Jose Bell, 11/02/2012 contents of one CONSUMER ANALYST (2.5mg/3ML) 0.083% vial via nebulizer Nebulizer every 4 to 6 hours as needed Levothyroxine Sodium take 1 tablet by 90tabs E03.9 Jose Bell, 00/00/ 0000 mouth once daily CONSUMER ANALYST 75mcg Tablets History Medications Citalopram Take 3 tabs po 42tabs F43.23 Jose Bell, 11/24/2019 - Hydrobromide qday for 1 week, CONSUMER ANALYST 12/24/2019 10mg then 2 tabs for Tablets [...] Code Status Date Vaccine Reaction Lot # [id number] Given 09/15/2019 Influ Vacc Quadrivalent pharmacy administered Preser/Antibiotic Free Im Use Flucelvax [id number] Given 08/19/2018 Influenza Virus Vaccine, [id number] Quadrivalent, Split, Preservative Free 94071 Given 07/28/2018 Influenza Virus Vaccine, Quadrivalent, Split, Preservative Free 74084 Given 07/28/2018 Influenza Virus Vaccine, Quadrivalent, Split, Preservative Free 41342 Given 01/21/2018 Influenza Virus Vaccine, [id number] Quadrivalent, Split, Preservative Free 71501 Given 10/16/2017 Pneumonia Vaccine no reaction, pt [id number] tolerated well Q2035 Given 10/16/2015 Afluria Vaccine 56984 Given 08/20/2012 Tdap - [id number] Tetanus/Diptheria/Acellul ar Pertussis Q2038 Given 07/20/2012 Fluzone Vaccine [id number] Ordered 07/04/2016 Afluria Vaccine Vital Signs [...] Result H/L Range Note CBC Auto 01/02/2020 [facility] White Blood 7.7 10^3/uL Normal 3.5-10.[address] [place] [address] [phone] Red Blood Count 3.87 10^6/uL Normal 3.70-4.87 [...] Red Blood Cells % 0.1 Inr/Protime 01/02/2020 [facility] Inr 1.10 High 0.82-1.[address] [place] [address] [phone] Laboratory 01/02/2020 [facility] D Dimer < 200 Normal Less Than 2 test finding [address] Quantitative ng/mL [address] [place] [address] [phone] Comp Metabolic 01/02/2020 [facility] Sodium 138 Normal 135- [address] mmol/[place] [address] [phone] Potassium 4.1 mmol/L Normal 3.5-5.0 Chloride 107 [...] Egfr 87.0 >60 3 Laboratory test 01/02/2020 [facility] Troponin-I 0.01 <0.03 [address] (TnI) ng/[place] [address] [phone] CBC No Diff 11/30/2019 [facility] White Blood 7.1 Normal 3.5- 10.[address] Count 10^3/[place] [address] [phone] Red Blood Count 3.89 10^6/uL Normal 3.70-4.87 Hemoglobin 13.0 g/dL Normal 12.0-16.0 Hematocrit 38 % Normal 35-47 Mean Corpuscular Volume 97 fL Normal 80-97 Mean Corpuscular Hemoglobin 33 pg High 27-31 Mean Corpuscular HGB Conc 35 g/dL Normal 31-36 Red Cell Distribution Width 14 % Normal 10-15 Platelet Count 312 10^3/uL Normal 150-450 Mean Platelet Volume 7.1 fL Low 7.4-10.4 Comp Metabolic 11/30/2019 [facility] Sodium 137 mmol/L Normal 135-[address] [place] [address] [phone] Potassium 4.2 mmol/L Normal 3.5-5.0 Chloride 103 [...] >60 Egfr 89.4 >60 5 Laboratory 11/30/2019 [facility] Lamotrigine 12.6 2.5 - 6 test finding [address] (Lamictal) g/mL 15.0 [place] [address] [phone] Laboratory 11/03/2019 [facility] Point of Care 93 mg/dL Normal 70-[address] [place] [address] [phone] CBC Auto Diff 09/03/2019 [facility] White Blood 7.8 Normal 3.5 -10.[address] Count 10^3/[place] [address] [phone] Red Blood Count 4.15 10^6/uL Normal 3.70-4.87 [...] Blood Cells % 0.1 Comp Metabolic 09/03/2019 [facility] Sodium 139 mmol/L Normal 135-[address] [place] [address] [phone] Potassium 4.2 mmol/L Normal 3.5-5.0 Chloride 103 [...] Egfr 80.1 >60 8 Laboratory test 08/26/2019 [facility] Point of Care 131 mg/dL High 70-100 [address] Glucose [place] [id number] [phone] 1 Standard intensity warfarin therapeutic range: 2.0-3.0 [...] immediately to secondary confirmatory testing. Using the [employer] DxI 800 Access Immunoassay systems, the 99th [...] developed and its performance characteristics determined by [facility] in a manner consistent with CLIA requirements. This test has not been cleared or approved by the U.S. Food and Drug Administration. Test Performed by: [facility] - [address] [address] Engine Watchman: Kenrick Hightower M.D. Ph.D.; CLIA# [id number] Senior Financial Reporting Analyst: [id number] Because ethnic data is not always [...] 5 Kidney failure <15 (or dialysis) 9 Senior Financial Reporting Analyst: [id number] Procedures Description No Information Available Medical Devices Description No Information Available Encounters Type Date Location Provider Dx Diagnosis Office Visit 11/24/2019 [facility] Internal Zsofia Ray, F43.23 Adjustment 8:20a Medicine - Ccmob CONSUMER ANALYST disorder with mixed anxiety and depressed mood D17.1 Benign lipomatous neoplasm of skin, subcu of trunk R42 Dizziness and giddiness Office Visit 11/23/2019 8:30a Surgical Wellington Blanco D17.1 [facility] MD Pino lipomatous neoplasm of skin, subcu of trunk Office Visit 10/05/2019 11:30a [place] [facility] Darion Mena NP R42 Dizziness [facility] giddiness F44.5 Conversion disorder with seizures or convulsions G43.009 Migraine w/o aura, not intractable, w/o status migrainosus G47.33 Obstructive sleep apnea (adult) (pediatric) Office Visit 09/01/2019 3:00p [facility] Internal Belia H66.93 Otitis media, Medicine - MD Crow unspecified, Ccmob bilateral R05 Cough R42 Dizziness and giddiness Assessments Date Code Description Provider 02/04/2020 G43.009 Migraine without aura, not intractable, Darion Mena NP without status migrainosus 02/04/2020 R42 Dizziness and giddiness Darion Mena NP 02/04/2020 R29.6 Repeated falls Darion Mena NP 11/24/2019 F43.23 Adjustment disorder with mixed anxiety and Zsofia Ray, CONSUMER ANALYST depressed mood 11/24/2019 D17.1 Benign lipomatous neoplasm of skin and Zsofia Ray, CONSUMER ANALYST subcutaneous tissue of trunk 11/24/2019 R42 Dizziness and giddiness Zsofia Ray, CONSUMER ANALYST 11/23/2019 D17.1 Benign lipomatous neoplasm of skin and Wellington Pringle MD subcutaneous tissue of trunk 10/05/2019 R42 Dizziness and giddiness Darion Mena PREPRESS STRIPPER 10/05/2019 F44.5 Conversion disorder with seizures or Darionshakira Mena NP convulsions 10/05/2019 G43.009 Migraine without aura, not intractable, Darion KaurJANNIE jones without status migra 10/05/2019 G47.33 Obstructive sleep apnea (adult) (pediatric) Darionshakira Mena NP 09/01/2019 H66.93 Otitis media, unspecified, bilateral Belia Maria MD 09/01/2019 R05 Cough Belia Maria MD 09/01/2019 R42 Dizziness and giddiness Belia Maria MD Plan of Treatment 02/04/2020 - Darion MenaJANNIEG43.009 Migraine without aura, not intractable, without status migrainosusNew Medication:Doxepin HCL 50 mg - take one cap by mouth at night.Follow up:Three monthsRecommendations:Reduce doxepin to 50 mg capsules, take 1 capsule by mouth at night. Continue to have an Aimovig injection every 3 months at our facility.R42 Dizziness and erteaqdxyI71.6 Repeated falls Functional Status Description No Information Available Mental Status Description No Information Available Referrals Refer to Reason for Referral Status Appt Date Momo Machado MD Dr. Monacelli does not take [place] for Closed 00 non-urgent matters. 12/29 [address] [facility] [place] [address] [phone]
--- NOTE | 2020-02-24 18:01 | ED ---
HPI Chest Pain - HPI Summary HPI Summary: 39-year-old female with a significant past medical history of type 2 diabetes, hypothyroidism, asthma, COPD presents to the emergency Department today with chief complaint of 3 days of sore throat, nasal congestion, productive cough, shortness of breath, chest pain, fever. Patient states her chest pain is left anterior which she rates as 3 out of 10 which is made worse and only felt when coughing. Patient has no associated diaphoresis, arm pain, jaw pain, abdominal pain, lightheadedness. No increase in chest pain with exertion. Patient denies known contact with someone under investigation or with a diagnosis diagnosis of 19. Patient states she has been taking ibuprofen and Tylenol for her symptoms prior to arrival. Patient does not wear oxygen at home. Patient is in no acute distress in the exam room with no evidence of stridor or wheezing. Patient is afebrile upon arrival. Patient tolerated well and denies abdominal pain, nausea, vomiting, diarrhea, pain with urination. - History of Current Complaint Hx Obtained From: Patient Hx Last Menstrual Period: current Onset/Duration: Started Days Ago Timing: Constant Chest Pain Location: Left Anterior Chest Pain Radiates: No Character: Cough, Productive, Dyspnea at Rest, Pressure/Squeezing Aggravating Factor(s): Nothing Alleviating Factor(s): Medication Associated Signs and Symptoms: Positive: Chest Pain, Shortness of Breath, Fever , Cough, Productive Cough, Nasal Congestion. Negative: Nausea, Nonproductive Cough, Back Pain, Abdominal Pain, Wheezing - Allergy/Home Medications Allergies/Adverse Reactions: Allergies Allergy/AdvReac Type Severity Reaction Status Date / Time blueberry Allergy Severe Hives/Diff. Verified 01/02/20 16:51 Breathing/I tching diphenhydramine Allergy Severe Swelling Verified 01/02/20 16:51 [From Benadryl] paroxetine [From Paxil] Allergy Severe Swelling Verified 01/02/20 16:51 Penicillins Allergy Severe Shortness Verified 01/02/20 16:51 of Breath watermelon Allergy Severe Hives/Diff. Verified 01/02/20 16:51 Breathing/I tching amoxicillin [From Augmentin] Allergy Intermediate Hives Verified 01/02/20 16:51 clavulanic acid Allergy Intermediate Hives Verified 01/02/20 16:51 [From Augmentin] formoterol [From Dulera] Allergy Intermediate Hives Verified 01/02/20 16:51 iohexol [From Omnipaque] Allergy Intermediate Hives Verified 01/02/20 16:51 metronidazole Allergy Intermediate Hives Verified 01/02/20 16:51 sertraline [From Zoloft] Allergy Intermediate Hives Verified 01/02/20 16:51 zonisamide Allergy Intermediate Hives Verified 01/02/20 16:51 pseudoephedrine Allergy Unknown Unknown Verified 01/02/20 16:51 Reaction Details acetaminophen [From Tylenol] Allergy dilusional Verified 01/02/20 16:51 coconut Allergy Hives/Diff. Verified 01/02/20 16:51 Breathing/I tching codeine Allergy Altered Verified 01/02/20 16:51 Mental Status guaifenesin [From Mucinex] Allergy Unknown Verified 01/02/20 16:51 Reaction Details latex Allergy Hives Verified 01/02/20 16:51 lemon oil Allergy Vomiting Verified 01/02/20 16:51 morphine Allergy See Comment Verified 01/02/20 16:51 peanut Allergy Unknown Verified 01/02/20 16:51 Reaction Details pickle Allergy Intermediate Hives/Diff. Uncoded 01/02/20 16:51 Breathing/I tching Home Medications: Home Medications Albuterol HFA INHALER* [Ventolin HFA Inhaler*] 2 puff INH QID PRN 09/03/19 [ History Confirmed 02/24/20] Cetirizine* [ZyrTEC 10 MG TAB*] 10 mg PO DAILY 09/03/19 [History Confirmed 02/23] Doxepin (NF) 100 mg PO QPM 09/03/19 [History Confirmed 02/24/20] Ferrous Gluconate TAB* [Fergon TAB*] 324 mg PO BID 09/03/19 [History Confirmed 02/24/20] Ibuprofen TAB* [Motrin TAB* 800 MG] 800 mg PO DAILY PRN 09/03/19 [History Confirmed 02/24/20] Levothyroxine TAB* [Synthroid TAB*] 75 mcg PO DAILY 09/03/19 [History Confirmed 02/24/20] Omeprazole CAP (NF) [Prilosec CAP* 20 MG] 20 mg PO DAILY 09/03/19 [History Confirmed 02/24/20] lamoTRIgine TAB(*) [LaMICtal TAB(*)] 400 mg PO BID 09/03/19 [History Confirmed 02/24/20] Chlorpheniramine/Dextromethorp [Robitussin Long-Acting Liq] 5 ml PO BID PRN [History Confirmed 02/24/20] Cholecalciferol CAP/TAB(NF) [Vitamin D3 CAP/TAB (NF)] 1,000 unit PO DAILY [History Confirmed 02/24/20] Erenumab-Aooe [Aimovig Autoinjector] 70 mg SUBCUT MONTHLY 11/30/19 [History Confirmed 02/24/20] Fluticasone NASAL SPRAY 50MCG* [Flonase NASAL SPRAY 50MCG*] 2 spray BOTH NARES DAILY 11/30/19 [History Confirmed 02/24/20] Meclizine TAB* [Antivert 12.5 TAB*] 25 mg PO BID 11/30/19 [History Confirmed ] Oxymetazoline 0.05% NASAL SPR* [Afrin 0.05% NASAL SPRAY*] 2 spray BOTH NARES BID PRN 11/30/19 [History Confirmed 02/24/20] buPROPion TAB* [Wellbutrin TAB*] 100 mg PO QAM 11/30/19 [History Confirmed 02/23] Citalopram TAB* [CeleXA TAB*] 40 mg PO DAILY 02/24/20 [History Confirmed ] hydrOXYzine HCL TAB* [Atarax 25 MG TAB*] 25 mg PO BID PRN 02/24/20 [History Confirmed 02/24/20] PMH/Surg Hx/FS Hx/Imm Hx Endocrine/Hematology History: Reports: Hx Diabetes - "pre diabetes", Hx Thyroid Disease, Hx Anemia Denies: Hx Unexplained Bleeding Cardiovascular History: Denies: Hx Aneurysm, Hx Angina, Hx Angioplasty, Hx Auto Implanted Cardiovert Defib, Hx Cardiac Arrest, Hx Cardiomegaly, Hx Congenital Heart Disease, Hx Congestive Heart Failure, Hx Coronary Artery Disease, Hx Deep Vein Thrombosis, Hx Embolism, Hx Hypercholesterolemia, Hx Hypotension, Hx Hypertension, Hx Myocardial Infarction, Hx Pacemaker/ICD, Hx Peripheral Vascular Disease, Hx Rheumatic Fever, Hx Syncope, Hx Valvular Heart Disease, Other Cardiovascular Problems/Disorders Respiratory History: Reports: Hx Asthma, Hx Chronic Bronchitis, Hx Chronic Obstructive Pulmonary Disease (COPD) Denies: Hx Cystic Fibrosis, Hx Lung Cancer, Hx Pleural Effusion, Hx Pneumonia , Hx Pulmonary Edema, Hx Pulmonary Embolism, Hx Seasonal Allergies, Hx Sleep Apnea, Other Respiratory Problems/Disorders GI History: Reports: Hx Gastroesophageal Reflux Disease - ON DAILY PROLOSEC Denies: Hx Gall Bladder Disease, Hx Gastrointestinal Bleed, Hx Ulcer, Hx Urosepsis History: Denies: Hx Kidney Stones, Hx Renal Disease Sensory History: Reports: Hx Contacts or Glasses Denies: Hx Cataracts, Hx Eye Injury, Hx Eye Prosthesis, Hx Glaucoma, Hx Legally Blind, Hx Macular Degeneration, Hx Vision Problem, Hx Deafness, Hx Hearing Aid, Hx Hearing Problem, Other Sensory Impairments Opthamlomology History: Reports: Hx Contacts or Glasses Denies: Hx Cataracts, Hx Eye Injury, Hx Eye Prosthesis, Hx Glaucoma, Hx Legally Blind, Hx Macular Degeneration, Hx Vision Problem, Other Sensory Impairments Neurological History: Reports: Hx Developmental Delay - 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., Hx Migraine - OCCASSIONAL, USES [facility], Hx Seizures - SINCE 2004; LAST WAS 04/2014, Other Neuro Impairments/Disorders - epilepsy Denies: Hx Dementia, Hx Transient Ischemic Attacks (TIA) Psychiatric History: Reports: Hx Anxiety - ON MEDS PRN, Hx Depression, Hx Community Mental Health Tx - not currently; previously used [employer] and [employer] Mental health, Hx Bipolar Disorder Denies: Hx Post Traumatic Stress Disorder, Hx Schizophrenia, Hx Suicide Attempt, Hx Substance Abuse - Cancer History Cancer Type, Location and Year: seizure disorder - Surgical History Surgery Procedure, Year, and Place: Scalp Cystectomy May 2014, Abdominal Lipoma May 2014 Hx Anesthesia Reactions: No Infectious Disease History: Denies: Hx Clostridium Difficile, Hx Hepatitis, Hx Human Immunodeficiency Virus (HIV), Hx of Known/Suspected MRSA, Hx Shingles, Hx Tuberculosis, Hx Known/ Suspected VRE, Hx Known/Suspected VRSA, History Other Infectious Disease, Traveled Outside the [place] in Last 30 Days - Family History Known Family History: Positive: Cardiac Disease, Diabetes Negative: Renal Disease, Seizure Disorder - Social History Alcohol Use: None Hx Substance Use: No Substance Use Type: Reports: None Hx Tobacco Use: Yes Smoking Status (MU): Former Smoker Type: Cigarettes Have You Smoked in the Last Year: No Review of Systems Positive: Fever, Fatigue Eyes: Negative Positive: Sore Throat, Nasal Discharge Positive: Chest Pain Positive: Shortness Of Breath, Cough Gastrointestinal: Negative Genitourinary: Negative Musculoskeletal: Negative Skin: Negative Neurological/Mental Status: Negative Psychological: Normal All Other Systems Reviewed And Are Negative: Yes Physical Exam - Summary Physical Exam Summary: Patient is in no acute distress resting to the hospital stretcher. Patient is able to speak in full unbroken sentences. No wheezing or stridor is noted. Lungs are clear to auscultation. Triage Information Reviewed: Yes Vital Signs Reviewed: Yes Appearance: Positive: Well-Appearing, No Pain Distress, Well-Nourished Skin: Positive: Warm, Skin Color Reflects Adequate Perfusion Eyes: Positive: EOMI, SHANNON ENT: Positive: Hearing grossly normal Respiratory/Lung Sounds: Positive: Clear to Auscultation, Breath Sounds Present. Negative: Rales, Rhonchi, Subcutaneous Emphysema, Stridor, Tracheal Deviation, Wheezes, Unable to speak in full sentences, Fatigue Cardiovascular: Positive: RRR, S1, S2 Musculoskeletal: Positive: Strength/ROM Intact Neurological: Positive: Sensory/Motor Intact, Alert, Oriented to Person Place, Time, Normal Gait, Facial Symmetry, Speech Normal Psychiatric: Positive: Normal, Affect/Mood Appropriate AVPU Assessment: Alert Procedures - Sedation Patient Received Moderate/Deep Sedation with Procedure: No Diagnostics - Laboratory Result Diagrams: 02/24/20 18:40 02/24/20 18:40 Lab Statement: Any lab studies that have been ordered have been reviewed, and results considered in the medical decision making process. Chest Pain Course/Dx - Course Course Of Treatment: Patient was evaluated in the emergency department today for upper respiratory symptoms. This patient was placed as a PUI for COVID-19. Vitals noted and stable. Patient is afebrile with a temperature of 98.0 in the emergency department. Patient was in no acute distress. Patient had Covid 19 testing done due to her symptoms, she'll be contacted by the department health with a positive or negative result. Laboratory studies were done and showed no significant abnormalities other than a mildly elevated CRP at 22.8. No evidence of leukocytosis, anemia, or electrolyte disturbance. Initial troponin is 0.01. Serial troponins were deemed unnecessary as patient has been symptomatic for 3 days. Chest x-ray shows elevation of the right hemidiaphragm however there is no obvious pneumonia. HEART score: 1. Patient appears to be suffering no significant intervention at this time other than a mild upper respiratory infection. Patient discharged outpatient follow-up with instructions for quarantine until results from her Covid 19 tests return. - Chest Pain Differential Diagnosis/HQI/PQRI: Acute [place], ACS, Lower Respiratory Infection, Other: - COVID-19, URI, pneumonia - Diagnoses Provider Diagnoses: URI (upper respiratory infection) - Critical Care Time Critical Care Statement: Critical care time is provided exclusive of any time spent performing procedures. Discharge ED - Sign-Out/Discharge Documenting (check all that apply): Patient Departure - Discharge Plan Condition: Stable Disposition: HOME Patient Education Materials: Dyspnea (ED) Forms: COVID-19 Tested & Isolation Referrals: Jose Bell NP [Primary Care Provider] - 3 Days Additional Instructions: Please take Tylenol as needed for fever. Please take Mucinex as needed for nasal congestion. Please quarantine yourself until you hear from the Department of Health for your pending COVID test, this usually takes 2-3 days. Please return to this emergency Department immediately should you develop any new or worsening symptoms. - Billing Disposition and Condition Condition: STABLE Disposition: Home - Attestation Statements Provider Attestation: I was available for consultation for this patient. I did not evaluate the patient or participate in any medical decision making or disposition decisions unless I am specifically named in the chart as having consulted on the patient. If I have consulted on the patient, please see my own ED note on the patient encounter. Wolf Oliver MD
[2020-02-24 18:54] LABS: ABS Basophils 0.1 10^3/ul (0-0.2); ABS Eosinophils 0.2 10^3/ul (0-0.6); ABS Lymphocytes 2.1 10^3/ul (1.0-4.8); ABS Monocytes 0.5 10^3/ul (0-0.8); ABS Neutrophils 4.9 10^3/ul (1.5-7.7); Eosinophil % 2.2 %; Hematocrit 38 % (35-47); Hemoglobin 13.1 g/dL (12.0-16.0); Lymphocyte % 27.7 %; Mean Corpuscular HGB Conc 34 g/dL (31-36); Mean Corpuscular Hemoglobin 33 pg (27-31); Mean Corpuscular Volume 97 fL (80-97); Mean Platelet Volume 7.2 fL (7.4-10.4); Platelet Count 301 10^3/uL (150-450); Red Blood Count 3.94 10^6 /uL (3.70-4.87); Red Cell Distribution Width 14 % (10-15); White Blood Count 7.7 10^3/uL (3.5-10.8)
[2020-02-24 19:11] LABS: Albumin 4.1 g/dL (3.2-5.2); Albumin/Globulin Ratio 1.4 (1-3); BUN/Creatinine Ratio 16.7 (8-20); C Reactive Protein 19.86 mg/L (<8.01); Calcium 9.3 mg/dL (8.6-10.3); EGFR African American 109.7 (>60); EGFR Non-African American 90.7 (>60); Globulin 2.9 g/dL (2-4); Total Bilirubin 0.4 mg/dL (0.2-1.0)
[2020-02-24 19:13] LABS: Troponin I 0.01 ng/mL (<0.03)
[2020-02-24 20:02] VITALS: BP 148/96
== END 2020-02-24 20:02 | disposition home or self-care (01) ==
LOC: ED 17:23
DX: J06.9 Acute upper respiratory infection, unspecified (principal); R07.9 Chest pain, unspecified; R06.02 Shortness of breath; R50.9 Fever, unspecified; R05 Cough; R09.81 Nasal congestion; K21.9 Gastro-esophageal reflux disease without esophagitis; R73.03 Prediabetes; E03.9 Hypothyroidism, unspecified; Z88.0 Allergy status to penicillin; Z88.8 Allergy status to other drugs, medicaments and biological substances; Z91.040 Latex allergy status; Z79.899 Other long term (current) drug therapy; Z79.890 Hormone replacement therapy; Z87.891 Personal history of nicotine dependence; J02.9 Acute pharyngitis, unspecified; Z20.828 Contact with and (suspected) exposure to other viral communicable diseases
CPT/HCPCS: 36415; 71045; 80053; 84484; 85025; 86140; 87635; 99282

== ENCOUNTER 2020-03-04 13:10 | Emergency (ER) | payer OTHER ==
--- NOTE | 2020-03-04 13:31 | ED ---
Upper Extremity Pain - HPI Summary HPI Summary: Patient is a 39-year-old female presenting to [facility] Emergency Department with a chief complaint of left shoulder pain and erythema onset this morning after hearing a crunch in the arm. The erythema extends into the shoulder and forearm. The acute pain is rated 6/10 in severity. There is no known trauma or recent heavy lifting. She endorses decreased ROM secondary to pain. She has taken Ibuprofen to some relief. She denies any fevers, chills, chest pain, or shortness of breath. LNMP: two weeks ago. Past medical history includes pre- diabetes, thyroid disease, anemia, asthma, chronic bronchitis, COPD, GERD, developmental delay, migraines, epilepsy, anxiety, depression, bipolar disorder , scalp cystectomy, abdominal lipoma. Former smoker. No alcohol or substance use. Medications reviewed. Allergies noted. - History of Current Complaint Chief Complaint: EDShoulderClavicleInj Stated Complaint: LT SHOULDER PAIN PER PT Hx Obtained From: Patient Hx Last Menstrual Period: current Mechanism Of Injury: Unknown Onset/Duration: Started Hours Ago, Still Present Timing: Constant Severity Initially: Moderate Severity Currently: Moderate Pain Location: Shoulder, Arm Aggravating Factor(s): Movement Alleviating Factor(s): OTC Meds - Ibuprofen Associated Signs & Symptoms: Positive: Redness - throughout arm. Negative: Fever, Chest Pain, SOB, Other - chills - Allergies/Home Medications Allergies/Adverse Reactions: Allergies Allergy/AdvReac Type Severity Reaction Status Date / Time blueberry Allergy Severe Hives/Diff. Verified 03/04/20 13:14 Breathing/I tching diphenhydramine Allergy Severe Swelling Verified 03/04/20 13:14 [From Benadryl] paroxetine [From Paxil] Allergy Severe Swelling Verified 03/04/20 13:14 Penicillins Allergy Severe Shortness Verified 03/04/20 13:14 of Breath watermelon Allergy Severe Hives/Diff. Verified 03/04/20 13:14 Breathing/I tching amoxicillin [From Augmentin] Allergy Intermediate Hives Verified 03/04/20 13:14 clavulanic acid Allergy Intermediate Hives Verified 03/04/20 13:14 [From Augmentin] formoterol [From Dulera] Allergy Intermediate Hives Verified 03/04/20 13:14 iohexol [From Omnipaque] Allergy Intermediate Hives Verified 03/04/20 13:14 metronidazole Allergy Intermediate Hives Verified 03/04/20 13:14 sertraline [From Zoloft] Allergy Intermediate Hives Verified 03/04/20 13:14 zonisamide Allergy Intermediate Hives Verified 03/04/20 13:14 pseudoephedrine Allergy Unknown Unknown Verified 03/04/20 13:14 Reaction Details acetaminophen [From Tylenol] Allergy dilusional Verified 03/04/20 13:14 coconut Allergy Hives/Diff. Verified 03/04/20 13:14 Breathing/I tching codeine Allergy Altered Verified 03/04/20 13:14 Mental Status guaifenesin [From Mucinex] Allergy Unknown Verified 03/04/20 13:14 Reaction Details latex Allergy Hives Verified 03/04/20 13:14 lemon oil Allergy Vomiting Verified 03/04/20 13:14 morphine Allergy See Comment Verified 03/04/20 13:14 peanut Allergy Unknown Verified 03/04/20 13:14 Reaction Details pickle Allergy Intermediate Hives/Diff. Uncoded 01/02/20 16:51 Breathing/I tching Home Medications: Home Medications Albuterol HFA INHALER* [Ventolin HFA Inhaler*] 2 puff INH QID PRN 09/03/19 [ History Confirmed 02/24/20] Cetirizine* [ZyrTEC 10 MG TAB*] 10 mg PO DAILY 09/03/19 [History Confirmed 02/23] Doxepin (NF) 100 mg PO QPM 09/03/19 [History Confirmed 02/24/20] Ferrous Gluconate TAB* [Fergon TAB*] 324 mg PO BID 09/03/19 [History Confirmed 02/24/20] Ibuprofen TAB* [Motrin TAB* 800 MG] 800 mg PO DAILY PRN 09/03/19 [History Confirmed 02/24/20] Levothyroxine TAB* [Synthroid 75 MCG TAB*] 75 mcg PO DAILY 09/03/19 [History Confirmed 02/24/20] Omeprazole CAP (NF) [Prilosec CAP* 20 MG] 20 mg PO DAILY 09/03/19 [History Confirmed 02/24/20] lamoTRIgine TAB(*) [Lamictal TAB(*)] 400 mg PO BID 09/03/19 [History Confirmed 02/24/20] Chlorpheniramine/Dextromethorp [Robitussin Long-Acting Liq] 5 ml PO BID PRN [History Confirmed 02/24/20] Cholecalciferol CAP/TAB(NF) [Vitamin D3 CAP/TAB (NF)] 1,000 unit PO DAILY [History Confirmed 02/24/20] Erenumab-Aooe [Aimovig Autoinjector] 70 mg SUBCUT MONTHLY 11/30/19 [History Confirmed 02/24/20] Fluticasone NASAL SPRAY 50MCG* [Flonase NASAL SPRAY 50MCG*] 2 spray BOTH NARES DAILY 11/30/19 [History Confirmed 02/24/20] Meclizine TAB* [Antivert 12.5 TAB*] 25 mg PO BID 11/30/19 [History Confirmed ] Oxymetazoline 0.05% NASAL SPR* [Afrin 0.05% NASAL SPRAY*] 2 spray BOTH NARES BID PRN 11/30/19 [History Confirmed 02/24/20] buPROPion TAB* [Wellbutrin TAB*] 100 mg PO QAM 11/30/19 [History Confirmed 02/23] Citalopram TAB* [Celexa TAB*] 40 mg PO DAILY 02/24/20 [History Confirmed ] hydrOXYzine HCL TAB* [Atarax 25 MG TAB*] 25 mg PO BID PRN 02/24/20 [History Confirmed 02/24/20] Sulfamethox/Trimethoprim DS* [Bactrim DS 800/160 TAB*] 1 tab PO BID #20 tab [Rx] PMH/Surg Hx/FS Hx/Imm Hx Endocrine/Hematology History: Reports: Hx Diabetes - "pre diabetes", Hx Thyroid Disease, Hx Anemia Denies: Hx Unexplained Bleeding Cardiovascular History: Denies: Hx Aneurysm, Hx Angina, Hx Angioplasty, Hx Auto Implanted Cardiovert Defib, Hx Cardiac Arrest, Hx Cardiomegaly, Hx Congenital Heart Disease, Hx Congestive Heart Failure, Hx Coronary Artery Disease, Hx Deep Vein Thrombosis, Hx Embolism, Hx Hypercholesterolemia, Hx Hypotension, Hx Hypertension, Hx Myocardial Infarction, Hx Pacemaker/ICD, Hx Peripheral Vascular Disease, Hx Rheumatic Fever, Hx Syncope, Hx Valvular Heart Disease, Other Cardiovascular Problems/Disorders Respiratory History: Reports: Hx Asthma, Hx Chronic Bronchitis, Hx Chronic Obstructive Pulmonary Disease (COPD) Denies: Hx Cystic Fibrosis, Hx Lung Cancer, Hx Pleural Effusion, Hx Pneumonia , Hx Pulmonary Edema, Hx Pulmonary Embolism, Hx Seasonal Allergies, Hx Sleep Apnea, Other Respiratory Problems/Disorders GI History: Reports: Hx Gastroesophageal Reflux Disease - ON DAILY PROLOSEC Denies: Hx Gall Bladder Disease, Hx Gastrointestinal Bleed, Hx Ulcer, Hx Urosepsis History: Denies: Hx Kidney Stones, Hx Renal Disease Sensory History: Reports: Hx Contacts or Glasses Denies: Hx Cataracts, Hx Eye Injury, Hx Eye Prosthesis, Hx Glaucoma, Hx Legally Blind, Hx Macular Degeneration, Hx Vision Problem, Hx Deafness, Hx Hearing Aid, Hx Hearing Problem, Other Sensory Impairments Opthamlomology History: Reports: Hx Contacts or Glasses Denies: Hx Cataracts, Hx Eye Injury, Hx Eye Prosthesis, Hx Glaucoma, Hx Legally Blind, Hx Macular Degeneration, Hx Vision Problem, Other Sensory Impairments Neurological History: Reports: Hx Developmental Delay - 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., Hx Migraine - OCCASSIONAL, USES [facility], Hx Seizures - SINCE 2004; LAST WAS 04/2014, Other Neuro Impairments/Disorders - epilepsy Denies: Hx Dementia, Hx Transient Ischemic Attacks (TIA) Psychiatric History: Reports: Hx Anxiety - ON MEDS PRN, Hx Depression, Hx Community Mental Health Tx - not currently; previously used [employer] and [employer]. Mental health, Hx Bipolar Disorder Denies: Hx Post Traumatic Stress Disorder, Hx Schizophrenia, Hx Suicide Attempt, Hx Substance Abuse - Cancer History Cancer Type, Location and Year: seizure disorder - Surgical History Surgical History: Yes Surgery Procedure, Year, and Place: Scalp Cystectomy May 2014, Abdominal Lipoma May 2014 Hx Anesthesia Reactions: No Infectious Disease History: No Infectious Disease History: Denies: Hx Clostridium Difficile, Hx Hepatitis, Hx Human Immunodeficiency Virus (HIV), Hx of Known/Suspected MRSA, Hx Shingles, Hx Tuberculosis, Hx Known/ Suspected VRE, Hx Known/Suspected VRSA, History Other Infectious Disease, Traveled Outside the [place] in Last 30 Days - Family History Known Family History: Positive: Cardiac Disease, Diabetes Negative: Renal Disease, Seizure Disorder - Social History Alcohol Use: None Hx Substance Use: No Substance Use Type: Reports: None Hx Tobacco Use: Yes Smoking Status (MU): Former Smoker Type: Cigarettes Have You Smoked in the Last Year: No Review of Systems Negative: Fever, Chills Negative: Shortness Of Breath Positive: Myalgia - left shoulder into arm, Decreased ROM - secondary to pain, LUE Positive: Other - redness of left forearm and upper arm All Other Systems Reviewed And Are Negative: Yes Physical Exam - Summary Physical Exam Summary: VITAL SIGNS: Reviewed. GENERAL: Patient is a well-developed although obese female who is lying comfortable in the stretcher. Patient is not in any acute respiratory distress. HEAD AND FACE: No signs of trauma. No ecchymosis, hematomas or skull depressions. No sinus tenderness. EYES: PERRL, EOMI x 2, No injected conjunctiva, no nystagmus. EARS: Hearing grossly intact. Ear canals and tympanic membranes are within normal limits. MOUTH: Oropharynx within normal limits. NECK: Supple, trachea is midline, no adenopathy, no JVD, no carotid bruit, no c- spine tenderness, neck with full ROM. CHEST: Symmetric, no tenderness at palpation. LUNGS: Clear to auscultation bilaterally. No wheezing or crackles. CVS: Regular rate and rhythm, S1 and S2 present, no murmurs or gallops appreciated. ABDOMEN: Soft, non-tender. No signs of distention. No rebound, no guarding, and no masses palpated. Bowel sounds are normal. EXTREMITIES: No deformity of the left shoulder or arm. Decreased ROM of the left shoulder secondary to pain. Good capillary refill. Good pulses. FROM in all other major joints, no edema, no cyanosis or clubbing. NEURO: Alert and oriented x 3. No acute neurological deficits. Speech is normal and follows commands. SKIN: Dry and warm. Erythema in the left forearm and upper arm. Triage Information Reviewed: Yes Vital Signs On Initial Exam: Initial Vitals Temp Pulse Resp BP Pulse Ox 96.4 F 97 16 144/79 92 03/04/20 13:11 03/04/20 13:11 03/04/20 13:11 03/04/20 13:11 03/04/20 13:11 Vital Signs Reviewed: Yes Procedures - Sedation Patient Received Moderate/Deep Sedation with Procedure: No Diagnostics - Vital Signs Vital Signs Temp Pulse Resp BP Pulse Ox 03/04/20 13:11 96.4 F 97 16 144/79 92 - Laboratory Result Diagrams: 03/04/20 13:42 03/04/20 13:42 Lab Statement: Any lab studies that have been ordered have been reviewed, and results considered in the medical decision making process. - Radiology Left Shoulder X-Ray Radiology Interpretation Completed By: Radiologist Summary of Radiographic Findings: Impression: No acute osseous injury. If symptoms persist, recommend repeat imaging. Dr. Shaikh has reviewed this report. - Ultrasound LUE DVT Venous Doppler US Ultrasound Interpretation Completed By: Radiologist Summary of Ultrasound Findings: Impression: No left upper extremity deep vein thrombosis. Dr. Shaikh has reviewed this report. Re-Evaluation - Re-Evaluation First Eval Re-Evaluation Time: 16:35 Comment: We discussed all results and plan for discharge home. Course/Dx - Course Assessment/Plan: Patient is a 39-year-old female presenting to [facility] Emergency Department with a chief complaint of left shoulder pain and erythema onset this morning after hearing a crunch in the arm. The erythema extends into the shoulder and forearm. The acute pain is rated 6/10 in severity. There is no known trauma or recent heavy lifting. She endorses decreased ROM secondary to pain. She has taken Ibuprofen to some relief. She denies any fevers, chills, chest pain, or shortness of breath. LNMP: two weeks ago. Past medical history includes pre-diabetes, thyroid disease, anemia, asthma, chronic bronchitis, COPD , GERD, developmental delay, migraines, epilepsy, anxiety, depression, bipolar disorder, scalp cystectomy, abdominal lipoma. Former smoker. No alcohol or substance use. Medications reviewed. Allergies noted. Patient is an obese female without any obvious deformity to the left upper extremity although there is decreased ROM secondary to pain. There is erythema in the forearm and upper arm with good capillary refill and good pulses. In the ED course the patient was placed on a ekg monitor tech, IV access was obtained, IV fluids started. Past medical records reviewed. Blood work w/o any significant abnormality except for glucose 121, CRP 30.63. Urinalysis is negative for infection. Left shoulder x-ray is negative for osseous injury. Venous Doppler is negative for left upper extremity DVT. Patient CRP is elevated therefore the patient might be developing a cellulitis. Therefore she was given Bactrim. Patient is safe for discharge with PCP follow up in 2-3 days. She is given a prescription for Bactrim for cellulitis. Patient understands and agrees. Plan of care was discussed with the patient, and patient understands and agrees. All questions were answered at patient satisfaction. There were no further complaints or concerns. - Diagnoses Provider Diagnoses: Cellulitis - Critical Care Time Critical Care Statement: Critical care time is provided exclusive of any time spent performing procedures. Discharge ED - Sign-Out/Discharge Documenting (check all that apply): Patient Departure - Patient will be discharged home. - Discharge Plan Condition: Stable Disposition: HOME Prescriptions: Sulfamethox/Trimethoprim DS* [Bactrim DS 800/160 TAB*] 1 tab PO BID #20 tab Patient Education Materials: Cellulitis (DC) Referrals: Jose Bell NP [Primary Care Provider] - 3 Days Additional Instructions: Please take medication as prescribed. Follow up with your primary care provider in 2-3 days. Return to the emergency department for any new or worsening symptoms. - Billing Disposition and Condition Condition: STABLE Disposition: Home - Attestation Statements Document Initiated by Scribe: Yes Documenting Scribe: Gabbie Newsome Provider For Whom Sampson is Documenting (Include Credential): Marito Shaikh MD Scribe Attestation: Gabbie Chavez, scribed for Marito Shaikh MD on 03/04/20 at 1808. Scribe Documentation Reviewed: Yes Provider Attestation: The documentation as recorded by the Gabbie villalobos accurately reflects the service I personally performed and the decisions made by , Marito Shaikh MD Status of Scribe Document: Viewed
[2020-03-04 13:56] LABS: ABS Basophils 0.1 10^3/ul (0-0.2); ABS Eosinophils 0.2 10^3/ul (0-0.6); ABS Lymphocytes 1.7 10^3/ul (1.0-4.8); ABS Monocytes 0.4 10^3/ul (0-0.8); ABS Neutrophils 5.5 10^3/ul (1.5-7.7); Eosinophil % 2.4 %; Hematocrit 38 % (35-47); Hemoglobin 13.2 g/dL (12.0-16.0); Lymphocyte % 21.4 %; Mean Corpuscular HGB Conc 34 g/dL (31-36); Mean Corpuscular Hemoglobin 33 pg (27-31); Mean Corpuscular Volume 97 fL (80-97); Mean Platelet Volume 7.1 fL (7.4-10.4); Platelet Count 303 10^3/uL (150-450); Red Blood Count 3.96 10^6 /uL (3.70-4.87); Red Cell Distribution Width 14 % (10-15); White Blood Count 7.8 10^3/uL (3.5-10.8)
[2020-03-04 14:01] LABS: Urine Appearance Cloudy; Urine Bilirubin Negative (Negative); Urine Blood Negative (Negative); Urine Color Yellow; Urine Glucose Negative (Negative); Urine Ketones Negative (Negative); Urine Nitrite Negative (Negative); Urine Protein Negative (Negative); Urine Specific Gravity 1.017 (1.010-1.030); Urine Urobilinogen Negative (Negative)
[2020-03-04 14:02] LABS: Urine Bacteria Absent (Absent); Urine Red Blood Cell Absent (Absent); Urine Squamous Epithelial Cell Present (Absent); Urine White Blood Cell Trace(0-5/hpf) (Absent)
[2020-03-04 14:15] LABS: Albumin/Globulin Ratio 1.3 (1-3); BUN/Creatinine Ratio 15.8 (8-20); C Reactive Protein 30.63 mg/L (<8.01); Calcium 9.2 mg/dL (8.6-10.3); EGFR African American 103.1 (>60); EGFR Non-African American 85.2 (>60); Globulin 3.1 g/dL (2-4); Potassium 3.8 mmol/L (3.5-5.0); Total Bilirubin 0.5 mg/dL (0.2-1.0); Total Protein 7.1 g/dL (6.4-8.9)
[2020-03-04 17:23] VITALS: BP 109/84
== END 2020-03-04 17:23 | disposition home or self-care (01) ==
LOC: ED 13:10
DX: L03.114 Cellulitis of left upper limb (principal); E07.9 Disorder of thyroid, unspecified; J44.9 Chronic obstructive pulmonary disease, unspecified; G40.909 Epilepsy, unspecified, not intractable, without status epilepticus; F41.9 Anxiety disorder, unspecified; Z87.891 Personal history of nicotine dependence
CPT/HCPCS: 36415; 80053; 81003; 81015; 85025; 86140; 87086; 99282

== ENCOUNTER 2023-09-22 07:18 | Inpatient (IN) ==
[2023-09-22] MEDS ORDERED: Al Hydrox/Mg Hydrox/Simet LIQ 30 ML UDC PO PRN (08:40)
[2023-09-22] MEDS ORDERED: LORazepam 2 mg VIAL 1 ml IV PUSH PRN ×2 (08:44)
[2023-09-22] MEDS ORDERED: Albuterol HFA INHALER 8 gm MDI INH PRN (08:46)
[2023-09-22] MEDS ORDERED: Ondansetron ODT 4 mg TAB 4 MG TAB PO PRN (08:46)
[2023-09-22] MEDS ORDERED: Fluticasone Propionate 1 PUFF/50 MCG DISKUS INH SCH (09:00)
[2023-09-22] MEDS ORDERED: Lorazepam PYXIS KEY PRN (13:07)
[2023-09-23 10:09] VITALS: BP 138/75
[2023-09-23] MEDS ORDERED: Doxepin 25 mg CAP (NF) PO SCH (23:00)
== END 2023-09-23 16:45 | disposition home or self-care (01) | DRG 53 ==
LOC: MEDTELE 07:18 → SUATTDRO 07:18
PROVIDERS: ADMIT Psychiatry & Neurology Neurology; ATTEND Internal Medicine

== ENCOUNTER 2024-09-17 10:32 | Observation (INO) ==
[2024-09-17 11:16] LABS: Activated Partial Thrombo Time 28.3 seconds (26.0-38.0); INR 0.98 (0.85-1.14)
[2024-09-17] MEDS ORDERED: Sulfur Hexaflouride MICROSPHR 25 MG VIAL IV PRN (11:22)
[2024-09-17 11:40] LABS: ABS Eosinophils 0.2 10^3/uL (0.0-0.5); ABS Lymphocytes 1.8 10^3/uL (1.0-4.8); ABS Monocytes 0.6 10^3/uL (0.0-0.9); ABS Neutrophils 4.8 10^3/uL (1.5-7.6); Hematocrit 36.2 % (35-45); Hemoglobin 12.4 g/dL (11.5-14.3); Lymphocyte % 24.4 %; Mean Corpuscular Hemoglobin 33.2 pg (27-33); Mean Corpuscular Hgb Conc 34.2 g/dL (31-36); Mean Platelet Volume 7.2 fL (7.5-11.2); Nucleated Red Blood Cells % 0.1 %/100WBC (0.0-0.8); Platelet Count 311 10^3/uL (150-450); Red Blood Count 3.73 10^6/uL (3.63-4.92); White Blood Count 7.4 10^3/uL (3.8-11.8)
[2024-09-17 11:47] LABS: Urine Appearance Clear; Urine Bilirubin Negative (Negative); Urine Blood Negative (Negative); Urine Color Light-Yellow; Urine Glucose Negative (Negative); Urine Ketones Negative (Negative); Urine Nitrite Negative (Negative); Urine Protein Negative (Negative); Urine Urobilinogen Negative (Negative)
[2024-09-17 11:49] LABS: Urine Bacteria 1+ /HPF (Absent); Urine Red Blood Cell Trace(0-2/hpf) /HPF (0-Trace); Urine Squamous Epithelial Cell Present /HPF (Absent); Urine White Blood Cell Trace(0-5/hpf) /HPF (0-Trace)
[2024-09-17 11:55] LABS: Albumin 4.3 g/dL (3.2-5.2); Albumin/Globulin Ratio 1.8 (1-3); Calcium 9.6 mg/dL (8.6-10.3); Creatinine, Serum 0.84 mg/dL (0.51-0.95); Direct Bilirubin 0.1 mg/dL (0.03-0.18); Globulin 2.4 g/dL (2-4); HDL Cholesterol 42.5 mg/dL; Indirect Bilirubin 0.3 mg/dL (0.3-1.0); Potassium 4.2 mmol/L (3.5-5.0); Total Bilirubin 0.4 mg/dL (0.2-1.0); Total Protein 6.7 g/dL (6.4-8.9); eGFR CKD-EPI 88.9 (>60)
[2024-09-17 12:31] LABS: High Sensitivity Troponin 1 Hr 3 pg/mL (<15)
[2024-09-17] MEDS ORDERED: Ondansetron ODT 4 mg TAB 4 MG TAB PO PRN (18:40)
[2024-09-17] MEDS ORDERED: Levalbuterol HFA INHALER MDI INH PRN (19:20)
[2024-09-17] MEDS ORDERED: [UNRECOGNIZED DRUG - REMARK] INTRANASAL PRN (19:20)
[2024-09-17] MEDS ORDERED: NF: RIMEGEPANT SULFATE 75 MG ODT TAB (NF) PO PRN (20:36)
[2024-09-17 21:05] LABS: TSH Ultra Thyroid Stim Horm 4.21 mcIU/mL (0.34-5.60)
[2024-09-17 21:17] LABS: Folate 8.72 ng/mL (5.90-24.80)
[2024-09-17] MEDS: CMCS: Doxepin 25 mg CAP (NF) PO SCH (22:04)
[2024-09-17] MEDS: Enoxaparin 40 MG/0.4 ML SYR SUBCUT SCH (22:05)
[2024-09-18 07:07] LABS: ABS Basophils 0.1 10^3/uL (0.0-0.1); ABS Eosinophils 0.2 10^3/uL (0.0-0.5); ABS Lymphocytes 1.6 10^3/uL (1.0-4.8); ABS Monocytes 0.5 10^3/uL (0.0-0.9); ABS Neutrophils 3.6 10^3/uL (1.5-7.6); Eosinophil % 3.4 %; Hematocrit 34.2 % (35-45); Hemoglobin 11.8 g/dL (11.5-14.3); Lymphocyte % 27.4 %; Mean Corpuscular Hemoglobin 33.6 pg (27-33); Mean Corpuscular Hgb Conc 34.6 g/dL (31-36); Mean Platelet Volume 7.1 fL (7.5-11.2); Nucleated Red Blood Cells % 0.1 %/100WBC (0.0-0.8); Platelet Count 258 10^3/uL (150-450); Red Blood Count 3.52 10^6/uL (3.63-4.92); Red Cell Distribution Width 13.8 % (12-17); White Blood Count 5.9 10^3/uL (3.8-11.8)
[2024-09-18] MEDS: SPIRIVA Respimat (tiotropium) 2.5 mcg/inh Inhaler INH SCH (07:07)
[2024-09-18 08:13] LABS: Calcium 8.9 mg/dL (8.6-10.3); Creatinine, Serum 0.78 mg/dL (0.51-0.95); Magnesium 1.9 mg/dL (1.9-2.7); Potassium 4.3 mmol/L (3.5-5.0); eGFR CKD-EPI 97.2 (>60)
[2024-09-18 09:06] VITALS: BP 147/90
[2024-09-18] MEDS: Cholecalciferol (VIT D3) 1,000 unit TAB PO SCH (09:33)
== END 2024-09-18 13:50 | disposition home or self-care (01) ==
LOC: EDHOLD 10:32 → ED 10:32 → MED 15:58
PROVIDERS: ADMIT Internal Medicine; ATTEND Internal Medicine